=== PATIENT | male | born 1965 | race Caucasian/White ===

== ENCOUNTER 2020-10-14 06:26 | Outpatient (REF) | payer OTHER, SELFPAY ==
[2020-10-14 07:20] LABS: Hematocrit 51.6 % (42-52); Hemoglobin 16.9 g/dl (14.0-18.0); Mean Corpuscular HGB Conc 32.8 g/dl (31.0-36.0); Mean Corpuscular Hemoglobin 29.3 pg (27.0-33.0); Mean Corpuscular Volume 89.6 fL (80-98); Mean Platelet Volume 10.7 fL (9.4-12.4); Platelet Count 247 X10*3/uL (160-400); Red Blood Count 5.76 X10*6/uL (4.60-5.80); Red Cell Distribution Width 14.4 % (11.0-16.0); White Blood Count 12.8 X10*3/uL (4.8-10.8)
[2020-10-14 07:24] LABS: Estimated Average Glucose 131 mg/dL; Hemoglobin A1c % 6.2 %
[2020-10-14 07:46] LABS: Alanine Aminotransferase 22 U/L (0-40); Albumin Level 4.5 g/dL (3.5-5.0); Alkaline Phosphatase 61 U/L (39-117); Anion Gap 16 (12-20); Aspartate Amino Transferase 27 U/L (5-37); Bilirubin Direct 0.2 mg/dL (0.0-0.5); Bilirubin Total 0.6 mg/dL (0.0-1.0); Blood Urea Nitrogen 16 mg/dL (9-16); Calcium 9.3 mg/dL (8.4-10.2); Carbon Dioxide 25 mmol/L (22-29); Chloride 101 mmol/L (96-108); Cholesterol 203 mg/dL; Estimated Glomerular Filt Rate > 60; Glucose Random 120 mg/dL (60-115); HDL Cholesterol 33 mg/dL; Potassium 4.1 mmol/L (3.3-5.1); Sodium 138 mmol/L (135-145); Total Protein 7.4 g/dL (6.5-8.0); Triglycerides 533 mg/dL
[2020-10-14 08:06] LABS: Thyroid Stimulating Hormone 0.81 uIU/mL (0.32-4.0)
[2020-10-14 08:53] LABS: Vitamin B12 461 pg/mL (200-900)
[2020-10-20 12:02] LABS: Vitamin D 25-OH, D2 <4 ng/mL; Vitamin D 25-OH, D3 26 ng/mL; Vitamin D 25-OH, Total 26 ng/mL (30-100)
== END 2020-10-14 06:27 | disposition home or self-care (01) ==
LOC: HO.LAB 06:26
PROVIDERS: PCP Internal Medicine; Visit Provider Internal Medicine
DX: E11.9 Type 2 diabetes mellitus without complications (principal)
CPT/HCPCS: 36415; 80048; 80061; 80076; 82306; 82607; 82746; 83036; 84443; 85027

== ENCOUNTER 2020-12-13 12:26 | Inpatient (IN) | payer OTHER, SELFPAY ==
[2020-12-13] VITALS (17 sets, daily range): BP systolic 102–156; BP diastolic 65–100; PULSE 67–156; RESP 14–20; TEMP 36.4–36.7; O2SAT 93–100; BMI 32.3
--- NOTE | 2020-12-13 | ECG_ITS ---
Test Reason : TACHY Blood Pressure : / mmHG Vent. Rate : 138 BPM Atrial Rate : 136 BPM P-R Int : 000 ms QRS Dur : 084 ms QT Int : 320 ms P-R-T Axes : 000 058 084 degrees QTc Int : 484 ms Atrial fibrillation with rapid ventricular response Nonspecific ST and T wave abnormality Abnormal ECG No previous ECGs available Referred By: William Lee Electronically Signed By:Cam Malcolm
--- NOTE | ~2020-12-13 | XR_ITS ---
EXAMINATION: XR CHEST CLINICAL INFORMATION: Abdominal pain COMPARISON: Left rib x-ray 10/21/2017 TECHNIQUE: Frontal view of the chest was obtained. FINDINGS: Cardiac silhouette is normal in size. Lungs are well aerated. There is no lobar consolidation. No pleural effusion or pneumothorax. No gross osseous abnormality. XR/XR chest 1V IMPRESSION: No acute pulmonary pathology.
--- NOTE | ~2020-12-13 | CT_ITS ---
EXAMINATION: CT ABDOMEN AND PELVIS WITH CONTRAST CLINICAL INFORMATION: Left lower quadrant pain history of diverticulitis COMPARISON: CT abdomen pelvis with runoff 09/10/2017 TECHNIQUE: Multidetector volumetric images were obtained from the superior aspect of the liver through the pubic symphysis following administration 85 mL of Omnipaque 350 intravenous contrast. Sagittal and coronal reformatted images were obtained on the technologist's workstation. Oral contrast: No This CT examination was performed using dose optimization techniques as appropriate, variously including the following: *Automated exposure control *Adjustment of mA and/or kV according to patient size (this includes techniques or standardized protocols for targeted exams where dose is matched to indication/reason for exam; i.e. extremities or head) *Use of iterative reconstruction technique DLP: 746 mGy-cm FINDINGS: LUNG BASES: The visualized lung bases are unremarkable. LIVER, GALLBLADDER, AND BILIARY TREE: Liver is mildly enlarged with a cephalocaudad dimension of just over 19 cm. Attenuation is decreased consistent with hepatic steatosis. Some minimal sparing is present around the gallbladder. No focal liver mass or bile duct dilatation is seen. The gallbladder is unremarkable with no evidence of radiopaque gallstones, gallbladder wall thickening, or obvious pericholecystic inflammatory changes. PANCREAS: Unremarkable. SPLEEN: Unremarkable. ADRENAL GLANDS: Unremarkable. KIDNEYS AND URETERS: The kidneys are normal in size, shape, and attenuation. Bilateral renal cysts are present. No solid renal masses are seen. No hydronephrosis, hydroureter, or calculi seen. No perinephric stranding. BLADDER: Unremarkable. GASTROINTESTINAL TRACT: A small hiatal hernia is present. The small and large bowel are unremarkable. The appendix is unremarkable. ABDOMINAL WALL: There is evidence of previous hernia repair in the anterior abdomen and left lower quadrant. There is a recurrent spigelian-type hernia containing only fat seen on the left (20:54). This was present on the 09/10/2017 study at which time a portion of a tiny loop of small bowel was seen protruding into the defect . A small periumbilical hernia seen containing only fat. LYMPH NODES: No retroperitoneal lymphadenopathy. VASCULAR: Marked calcific atherosclerotic changes present in the infrarenal aorta and visualized iliofemoral vessels. No aneurysm is seen. PELVIC VISCERA: Prostate and seminal vesicles appear normal. OSSEOUS STRUCTURES: Mild degenerative changes present in the lower thoracic spine as well as in the lumbar spine predominantly at L5-S1. No bony destructive lesions seen. CT/CT abdomen pelvis w con IMPRESSION: 1. There are is a small spigelian-type hernia is seen in the left lower quadrant containing only fat. 2. Mild hepatomegaly with fatty infiltration. 3. Benign bilateral renal cysts. 4. Marked calcific atherosclerotic changes.
--- NOTE | ~2020-12-13 | NM_ITS ---
Lexiscan Myocardial perfusion study Indication: Preoperative cardiac evaluation, history of peripheral vascular disease Technique: The patient was brought in for a Lexiscan perfusion study on 12/16/2020 and was injected 0.4 mg of Lexiscan intravenously. Within a minute of this injection 30 mCi of sestamibi was given intravenously. Images were obtained using the SPECT gamma camera interlaced with the gating device. Images were obtained in supine position. Resting perfusion study was performed on 12/15/2020. Patient was administered 30 mCi of sestamibi intravenously at rest. Images were then obtained in supine position. Total DLP 65mGy-cm. Images were processed with the software and compared side to side in short axis, horizontal long axis and vertical long axis views. Findings: Raw acquisition was reviewed. The stress perfusion study showed diminished tracer uptake along the inferior wall. With CT attenuation correction, this is improved significantly suggesting diaphragmatic attenuation artifact. The gated study shows normal LV systolic function with calculated LVEF of 58%. LV cavity is normal in size. The gated study shows normal wall thickening and contraction of segments. Resting study shows diminished tracer uptake along the inferior wall. With CT attenuation correction, this improves suggesting diaphragmatic artifact. Gating at rest reveals normal wall motion with ejection fraction at 66%. The findings are consistent with fixed inferior defect suspected to be from diaphragmatic attenuation artifact. No reversible defects.. NM/NM césar perf SPECT rest & str Impression: 1. Myocardial perfusion imaging study shows no evidence of any ischemia or infarction. Likely normal perfusion. 2. Gated LVEF is 58% during stress and 66% during rest. 3. Transient ischemic dilatation not present. EKG component of the test reported separately.
[2020-12-13 16:17] LABS: MANUAL DIFF FLAG NO
--- NOTE | 2020-12-13 16:31 | ED.ABDPAIN ---
HPI - Abdominal Pain General Chief Complaint: Abdominal Pain Stated Complaint: HERNIA PAIN Time Seen by Provider: 12/13/20 16:30 Source: patient Mode of arrival: ambulatory Limitations: no limitations History of Present Illness HPI narrative: Pleasant 55-year-old male with history of non insulin-dependent diabetes, dental surgery and diverticulitis he had a diverticular per in 2003 subsequently requiring colon resection and colostomy with reversal also having 2 abdominal hernia repairs around 2005 who presents today with complaint of over the past several hours he has had left lower quadrant abdominal pain worsening and is described as sharp and stabbing with intermittent episodes. States there is some nausea secondary to the pain but no vomiting or diarrhea. Onset (ago): hour(s) Pain Consistency: constant Location: LLQ Severity: moderate Quality: stabbing and aching Radiation: LLQ Migration to: no migration Exacerbating factors: nothing Relieving factors: nothing Associated symptoms: denies other symptoms Related Data Home Medications Medication Instructions Recorded Confirmed amitriptyline 100 mg tablet 100 mg PO BEDTIME 06/30/20 10/15/20 buprenorphine HCl 750 mcg buccal 750 mcg BUCCAL Q12H 06/30/20 10/15/20 film pramipexole 0.5 mg tablet 0.5 mg PO BID 06/30/20 10/15/20 alcohol swabs pad TOPICAL BID 10/11/20 10/15/20 aspirin 81 mg tablet,delayed 81 mg PO DAILY 10/11/20 10/15/20 release blood sugar diagnostic #10 ea 10/11/20 10/15/20 Previous Rx's Medication Instructions Recorded cephalexin 250 mg capsule 250 mg PO Q6H #28 cap 06/30/20 hydralazine 10 mg tablet 10 mg PO BID #180 tab 08/10/20 metformin 500 mg tablet 1,000 mg PO BID #360 tab 08/10/20 empagliflozin 25 mg tablet 25 mg PO QAM #90 tab 11/30/20 Allergies Allergy/AdvReac Type Severity Reaction Status Date / Time No Known Allergies Allergy Verified 10/15/20 11:26 [No Known Allergies*] Review of Systems Review of Systems Constitutional: No Weight loss, No Fever, No Chills, No Night Sweats, No Fatigue, No Malaise ENT/Mouth: No Hearing loss, No Ear Pain, No Nasal Congestion, No Sinus Pain, No Hoarseness, No sore throat, No Rhinorrhea, No Swallowing Difficulty Eyes: No Eye Pain, No Swelling, No Redness, No Foreign Body, No Discharge, No Vision Changes Cardiovascular: No Chest Pain, No SOB, No Dyspnea on Exertion, No Orthopnea, No Edema, No Palpitations Respiratory: No Cough, No Sputum, No Wheezing, No Dyspnea Gastrointestinal: + Nausea, No Vomiting, No Diarrhea, No Constipation, + abdominal Pain, No Hematochezia, No Melena Genitourinary: no irregular bleeding, No Dysuria, No Urinary Frequency, No Hematuria, No Urinary Incontinence, No Urgency, No Flank Pain, No Urinary Flow Changes, No Hesitancy Musculoskeletal: No joint pain, No Myalgias, No Joint Swelling Skin: No Skin Lesions, No rash Neuro: No Weakness, No Numbness, No Paresthesias, No Loss of Consciousness, No Dizziness, No Headache Psych: No Social Issues Heme/Lymph: No Bruising, No Bleeding,No Lymphadenopathy Endocrine: No Polyuria, No Polydipsia, No Temperature Intolerance Yes all other systems are reviewed and are negative Physical Exam Vital Signs: Vital Signs: Last Vital Signs Temp 98.1 F 12/13/20 20:00 Pulse 70 12/13/20 22:10 Resp 16 12/13/20 22:10 BP 111/73 12/13/20 22:10 Pulse Ox 94 12/13/20 22:10 Body Mass Index 32.3 Reviewed Const: General: cooperative and healthy appearing; No acute distress or intoxicated appearing Nutritional Appearance: average body habitus Orientation/consciousness: patient oriented x3 HENMT: Head: Yes normal to inspection Ears: hearing grossly normal bilaterally Eyes: General: appearance normal, both eyes and all related structures Visual Berumen: normal visual berumen by confrontation Neck: Neck: Yes normal visual inspection, No positive Brudzinski's sign, No positive Kernig's sign and No tender Thyroid: Thyroid normal Chest: Chest palpation & inspection: normal inspection of the chest Resp: Effort & Inspection: normal respiratory effort Auscultation: clear to auscultation bilaterally Cardio: Jugular venous distension: no JVD Rhythm: regular rhythm Heart sounds: S1 normal heart sound present and S2 normal heart sound present GI: Inspection: Yes normal to inspection Palpation (GI): Tenderness to palpation present (GI) in the LLQ Percussion: Yes normal to percussion Auscultation: normal bowel sounds : General: Yes no CVA tenderness Back/Spine/Pelvis: Back: no CVA tenderness Skin: General skin exam: no rashes or lesions noted Neuro: General: patient oriented x3 Extrem: General: Yes normal to inspection Course Reevaluation(s) Reevaluation #1: Labs done in triage with leukocytosis of 16 at baseline he is around 12 question reactive, abdominal pelvis CT done shows small fat containing hernia left lower quadrant otherwise no acute findings. His pain is disproportionate to findings on the CT this lactic acid was done which was 1.1 which is reassuring less likely ischemic. However he tells me that the pain his head is worse and his had multiple surgeries. Does I discussed case with General surgery Dr. Reardon who reviewed workup with me as well as reviewed the CT and feel can go home with oral injuries and follow-up in the office. Reevaluation #2: Upon re-evaluation patient was found to have elevated heart rate found to be in rapid AFib with RVR no prior history patient was subsequently troponin, D-dimer and TSH within normal limits. Patient was given 10 of diltiazem without much effect subsequently given 20 mg and started on drip he maintained in the low teens after 20 however after short period on Cardizem drip patient over to sinus rhythm repeat EKG was done. Case was discussed with hospitalist for admission. Consultations Consultation #1: General surgery Dr. Reardon Consultation #2: Hospitalist MDM - Abdominal Pain Medical Records Attestation: I reviewed the patient's medical records. Lab Data Result diagrams: 12/13/20 16:06 12/13/20 16:06 Labs: Lab Results 12/13/20 12/13/20 12/13/20 Range/Units 16:06 16:06 19:08 WBC 16.3 H (4.8-10.8) X10*3/uL RBC 6.29 H (4.60-5.80) X10*6/uL Hgb 18.5 H (14.0-18.0) g/dl Hct 56.5 H (42-52) % MCV 89.8 (80-98) fL MCH 29.4 (27.0-33.0) pg MCHC 32.7 (31.0-36.0) g/dl RDW 15.0 (11.0-16.0) % Plt Count 316 D (160-400) X10*3/uL MPV 10.1 (9.4-12.4) fL Immature Gran % (Auto) 0.8 H (0.0-0.4) % Neut % (Auto) 61.1 (45-73) % Lymph % (Auto) 29.3 (20-40) % Posey % (Auto) 6.7 (2-11) % Eos % (Auto) 1.2 (0-4) % Baso % (Auto) 0.9 (0-2) % Lymph # (Auto) 4.8 (1.2-4.9) X10*3/uL Posey # (Auto) 1.1 (0.1-1.2) X10*3/uL Eos # (Auto) 0.2 (0.0-0.4) X10*3/uL Baso # (Auto) 0.1 (0.0-0.2) X10*3/uL Abs Immat Gran (auto) 0.13 H (0.00-0.03) X10*3/uL Absolute Neuts (auto) 10.0 H (2.0-8.3) X10*3/uL Absolute Nucleated RBC 0.000 (0.0-0.012) X10*3/uL Nucleated RBC % (auto) 0.0 (0.0-0.2) /100WBC D-Dimer NG/ML Sodium 140 (135-145) mmol/L Potassium 4.9 (3.3-5.1) mmol/L Chloride 105 (96-108) mmol/L Carbon Dioxide 23 (22-29) mmol/L Anion Gap 17 (12-20) BUN 19 H (9-16) mg/dL Creatinine 0.87 (0.5-1.4) mg/dL Estim Creat Clear Calc 105.5 Estimated GFR > 60 Random Glucose 132 H (60-115) mg/dL Lactic Acid 1.1 (0.5-2.0) mmol/L Calcium 9.7 (8.4-10.2) mg/dL Total Bilirubin 0.5 (0.0-1.0) mg/dL Direct Bilirubin < 0.2 (0.0-0.5) mg/dL AST 24 (5-37) U/L ALT 20 (0-40) U/L Alkaline Phosphatase 70 (39-117) U/L Troponin I High Sens (<3.5-35.0) ng/L Total Protein 7.9 (6.5-8.0) g/dL Albumin 4.6 (3.5-5.0) g/dL Lipase 26 (8-78) U/L TSH 0.56 (0.32-4.0) uIU/mL 12/13/20 12/13/20 Range/Units 20:41 20:41 WBC (4.8-10.8) X10*3/uL RBC (4.60-5.80) X10*6/uL Hgb (14.0-18.0) g/dl Hct (42-52) % MCV (80-98) fL MCH (27.0-33.0) pg MCHC (31.0-36.0) g/dl RDW (11.0-16.0) % Plt Count (160-400) X10*3/uL MPV (9.4-12.4) fL Immature Gran % (Auto) (0.0-0.4) % Neut % (Auto) (45-73) % Lymph % (Auto) (20-40) % Posey % (Auto) (2-11) % Eos % (Auto) (0-4) % Baso % (Auto) (0-2) % Lymph # (Auto) (1.2-4.9) X10*3/uL Posey # (Auto) (0.1-1.2) X10*3/uL Eos # (Auto) (0.0-0.4) X10*3/uL Baso # (Auto) (0.0-0.2) X10*3/uL Abs Immat Gran (auto) (0.00-0.03) X10*3/uL Absolute Neuts (auto) (2.0-8.3) X10*3/uL Absolute Nucleated RBC (0.0-0.012) X10*3/uL Nucleated RBC % (auto) (0.0-0.2) /100WBC D-Dimer < 200 NG/ML Sodium (135-145) mmol/L Potassium (3.3-5.1) mmol/L Chloride (96-108) mmol/L Carbon Dioxide (22-29) mmol/L Anion Gap (12-20) BUN (9-16) mg/dL Creatinine (0.5-1.4) mg/dL Estim Creat Clear Calc Estimated GFR Random Glucose (60-115) mg/dL Lactic Acid (0.5-2.0) mmol/L Calcium (8.4-10.2) mg/dL Total Bilirubin (0.0-1.0) mg/dL Direct Bilirubin (0.0-0.5) mg/dL AST (5-37) U/L ALT (0-40) U/L Alkaline Phosphatase (39-117) U/L Troponin I High Sens 5.3 (<3.5-35.0) ng/L Total Protein (6.5-8.0) g/dL Albumin (3.5-5.0) g/dL Lipase (8-78) U/L TSH (0.32-4.0) uIU/mL Imaging Data Abdominal/pelvis CT with IV contrast: Radiologist's impression: [address] Scan ReportSigned Patient: Huang Jesus#: [id number]: 1965Acct:[id number]/Sex: 55 / MADM Date: 12/13/20Loc: [address] Dr: Ordering Physician: William Lee NP Date of Service: 12/13/20 Procedure(s): CT abdomen pelvis w con Accession Number(s): [id number] cc: William Lee NP~ EXAMINATION: CT ABDOMEN AND PELVIS WITH CONTRAST CLINICAL INFORMATION: Left lower quadrant pain history of diverticulitis COMPARISON: CT abdomen pelvis with runoff 09/10/2017 TECHNIQUE: Multidetector volumetric images were obtained from the superior aspect of the liver through the pubic symphysis following administration 85 mL of Omnipaque 350 intravenous contrast. Sagittal and coronal reformatted images were obtained on the technologist's workstation. Oral contrast: No This CT examination was performed using dose optimization techniques as appropriate, variously including the following: *Automated exposure control *Adjustment of mA and/or kV according to patient size (this includes techniques or standardized protocols for targeted exams where dose is matched to indication/reason for exam; i.e. extremities or head) *Use of iterative reconstruction technique DLP: 746 mGy-cm FINDINGS: LUNG BASES: The visualized lung bases are unremarkable. LIVER, GALLBLADDER, AND BILIARY TREE: Liver is mildly enlarged with a cephalocaudad dimension of just over 19 cm. Attenuation is decreased consistent with hepatic steatosis. Some minimal sparing is present around the gallbladder. No focal liver mass or bile duct dilatation is seen. The gallbladder is unremarkable with no evidence of radiopaque gallstones, gallbladder wall thickening, or obvious pericholecystic inflammatory changes. PANCREAS: Unremarkable. SPLEEN: Unremarkable. ADRENAL GLANDS: Unremarkable. KIDNEYS AND URETERS: The kidneys are normal in size, shape, and attenuation. Bilateral renal cysts are present. No solid renal masses are seen. No hydronephrosis, hydroureter, or calculi seen. No perinephric stranding. BLADDER: Unremarkable. GASTROINTESTINAL TRACT: A small hiatal hernia is present. The small and large bowel are unremarkable. The appendix is unremarkable. ABDOMINAL WALL: There is evidence of previous hernia repair in the anterior abdomen and left lower quadrant. There is a recurrent spigelian-type hernia containing only fat seen on the left (20:54). This was present on the 09/10/2017 study at which time a portion of a tiny loop of small bowel was seen protruding into the defect . A small periumbilical hernia seen containing only fat. LYMPH NODES: No retroperitoneal lymphadenopathy. VASCULAR: Marked calcific atherosclerotic changes present in the infrarenal aorta and visualized iliofemoral vessels. No aneurysm is seen. PELVIC VISCERA: Prostate and seminal vesicles appear normal. OSSEOUS STRUCTURES: Mild degenerative changes present in the lower thoracic spine as well as in the lumbar spine predominantly at L5-S1. No bony destructive lesions seen. CT/CT abdomen pelvis w con IMPRESSION: 1. There are is a small spigelian-type hernia is seen in the left lower quadrant containing only fat. 2. Mild hepatomegaly with fatty infiltration. 3. Benign bilateral renal cysts. 4. Marked calcific atherosclerotic changes. Dictated By:IRENE MUSE MDSigned By:<Electronically signed by IRENE MUSE MD in OV>12/13/20 1746 DD/ 1631TD/TT: Clearing Distribution Clerk: MARSHAL Chest x-ray: Radiologist's impression: [facility] [place], [place] [id number] ReportSigned Patient: Huang Jesus#: [id number]: 1965Acct:[id number]/Sex: 55 / MADM Date: 12/13/20Loc: EDAttending Dr: Ordering Physician: William Lee NP Date of Service: 12/13/20 Procedure(s): XR chest 1V Accession Number(s): [id number] cc: William Lee CAR INSTALLATIONS SUPERVISOR~ EXAMINATION: XR CHEST CLINICAL INFORMATION: Abdominal pain COMPARISON: Left rib x-ray 10/21/2017 TECHNIQUE: Frontal view of the chest was obtained. FINDINGS: Cardiac silhouette is normal in size. Lungs are well aerated. There is no lobar consolidation. No pleural effusion or pneumothorax. No gross osseous abnormality. XR/XR chest 1V IMPRESSION: No acute pulmonary pathology. Dictated By:BROCK BARNETT MDSigned By:<Electronically signed by BROCK BARNETT MD in OV>12/13/202113 DD/ 31TD/TT: Clearing Distribution Clerk: PD ECG Data Interpretation: EKG 1. Atrial fibrillation with RVR Rate 138 QT/QTC 320/for 84 No previous available EKG 2. Vent. Rate : 070 BPM Atrial Rate : 070 BPM P-R Int : 134 ms QRS Dur : 088 ms QT Int : 388 ms P-R-T Axes : 056 045 091 degrees QTc Int : 419 ms Normal sinus rhythm Nonspecific T wave abnormality Abnormal ECG When compared with ECG of 13-DEC-2020 20:28, Sinus rhythm has replaced Atrial fibrillation Vent. rate has decreased BY 68 BPM Nonspecific T wave abnormality now evident in Anterior leads Discharge Plan Discharge Clinical Impression: New onset a-fib, Abdominal pain, acute, left lower quadrant Patient Disposition: Admitted As Inpatient Prescriptions: No Action hydralazine 10 mg tablet 10 mg PO BID Qty: 180 RF: 1 metformin 500 mg tablet 1,000 mg PO BID Qty: 360 RF: 1 empagliflozin [Jardiance] 25 mg tablet 25 mg PO QAM Qty: 90 RF: 1 amitriptyline 100 mg tablet 100 mg PO BEDTIME RF: 0 pramipexole 0.5 mg tablet 0.5 mg PO BID RF: 0 Belbuca 750 mcg film 750 mcg buccal Q12H RF: 0 cephalexin [Keflex] 250 mg capsule 250 mg PO Q6H Qty: 28 RF: 0 (DME) FreeStyle Lite Strips Strip See Rx Instructions strip Not Applicable BID Qty: 10 RF: 0 alcohol swabs Pads, Medicated topical BID RF: 0 aspirin [Adult Low Dose Aspirin] 81 mg tablet,delayed release (DR/EC) 81 mg PO DAILY RF: 0 PMFSH Past Medical History Medical History Type 2 diabetes mellitus without complications Vitamin D deficiency Surgical History History of dental surgery History of hernia repair Family History Family History Father No problems noted. Mother No problems noted. Brother No problems noted. Brother No problems noted. Brother No problems noted. Sister No problems noted. Social History Social History (Updated 10/11/20 @ 08:44 by Benigno Hsieh) Alcohol intake: never Smoking Status: Current every day smoker Tobacco Type: Cigarette Packs Per Day: 1 Use of substances other than those prescribed or required for medical reasons: No Substance Use Type: Marijuana Substance Use Frequency: Daily Advance Directives: No Advance Directives Information Provided: Yes
[2020-12-13 16:39] LABS: Basophils Absolute Auto 0.1 X10*3/uL (0.0-0.2); Basophils Percent Auto 0.9 % (0-2); Eosinophils Absolute Auto 0.2 X10*3/uL (0.0-0.4); Eosinophils Percent Auto 1.2 % (0-4); Hemoglobin 18.5 g/dl (14.0-18.0); Imm Gran Abs Auto 0.13 X10*3/uL (0.00-0.03); Imm Gran Pct Auto 0.8 % (0.0-0.4); Lymphocytes Absolute Auto 4.8 X10*3/uL (1.2-4.9); Lymphocytes Percent Auto 29.3 % (20-40); Mean Corpuscular HGB Conc 32.7 g/dl (31.0-36.0); Mean Corpuscular Hemoglobin 29.4 pg (27.0-33.0); Mean Corpuscular Volume 89.8 fL (80-98); Mean Platelet Volume 10.1 fL (9.4-12.4); Monocytes Absolute Auto 1.1 X10*3/uL (0.1-1.2); Monocytes Percent Auto 6.7 % (2-11); Neutrophils Percent Auto 61.1 % (45-73); Platelet Count 316 X10*3/uL (160-400); Red Blood Count 6.29 X10*6/uL (4.60-5.80); White Blood Count 16.3 X10*3/uL (4.8-10.8)
[2020-12-13 16:45] LABS: Hematocrit 56.5 % (42-52)
[2020-12-13 16:55] LABS: Alanine Aminotransferase 20 U/L (0-40); Albumin Level 4.6 g/dL (3.5-5.0); Alkaline Phosphatase 70 U/L (39-117); Anion Gap 17 (12-20); Aspartate Amino Transferase 24 U/L (5-37); Bilirubin Direct < 0.2 mg/dL (0.0-0.5); Bilirubin Total 0.5 mg/dL (0.0-1.0); Blood Urea Nitrogen 19 mg/dL (9-16); Calcium 9.7 mg/dL (8.4-10.2); Carbon Dioxide 23 mmol/L (22-29); Chloride 105 mmol/L (96-108); Creatinine Clr Calc Pharmacy 105.5; Estimated Glomerular Filt Rate > 60; Glucose Random 132 mg/dL (60-115); Lipase 26 U/L (8-78); Potassium 4.9 mmol/L (3.3-5.1); Sodium 140 mmol/L (135-145); Total Protein 7.9 g/dL (6.5-8.0)
[2020-12-13] MEDS: Morphine Sulfate 4 MG/ML CARTRIDGE IVPUSH ×2 (17:02→20:23)
[2020-12-13] MEDS: 0.9 % Sodium Chloride 1,000 ML 999 ML IV (17:02)
[2020-12-13] MEDS: ondansetron HCL 4 MG/2 ML VIAL IVPUSH (17:02)
[2020-12-13] MEDS: iohexoL 350 MG/ML 100 ML INFUS..BTL IV (17:20)
[2020-12-13 19:35] LABS: Lactic Acid 1.1 mmol/L (0.5-2.0)
--- NOTE | 2020-12-13 20:30 | PC.NURSE ---
pt hr elevated 150 provider brought to bedside, ekg done, labs being drawn. pt states he had pain in the chest with diaphoretic prior to coming to the ed. pt was placed on the monitor.
--- NOTE | 2020-12-13 20:32 | ECG_ITS ---
Test Reason : Atrial fibrillation on bedside monitor Blood Pressure : / mmHG Vent. Rate : 070 BPM Atrial Rate : 070 BPM P-R Int : 134 ms QRS Dur : 088 ms QT Int : 388 ms P-R-T Axes : 056 045 091 degrees QTc Int : 419 ms Normal sinus rhythm Nonspecific T wave abnormality Abnormal ECG When compared with ECG of 13-DEC-2020 20:28, Sinus rhythm has replaced Atrial fibrillation Vent. rate has decreased BY 68 BPM Nonspecific T wave abnormality now evident in Anterior leads Referred By: Paris Moses Electronically Signed By:JOHN ROLAND
[2020-12-13] MEDS: dilTIAZem HCL 50 MG/10 ML VIAL 10 MG IVPUSH (20:37)
--- NOTE | 2020-12-13 20:48 | PC.NURSE ---
correction pt states he did not have chest pain earlier pt states he felt his heart racing and became diaphoretic at home. labs pending cardizem given no effect. hr 143. pt anxiouse teaching on the need to relax. xray taken, 2nd iv line in right ac.
--- NOTE | 2020-12-13 20:51 | PC.NURSE ---
verbal order from Rosa to give diltiazem 20 mg iv now.
[2020-12-13 21:03] LABS: D Dimer < 200 NG/ML
[2020-12-13] MEDS: dilTIAZem HCL 125 MG in 0.9 % Sodium Chloride 100 ML 10 MG IVCONT (21:13)
[2020-12-13 21:16] LABS: Troponin-I High Sensitivity 5.3 ng/L (<3.5-35.0)
[2020-12-13] MEDS: dilTIAZem HCL 50 MG/10 ML VIAL 20 MG IVPUSH (21:16)
[2020-12-13] MEDS: HYDROmorphone HCl 1 MG/ML SYRINGE IVPUSH (21:17)
[2020-12-13 21:44] LABS: Thyroid Stimulating Hormone 0.56 uIU/mL (0.32-4.0)
--- NOTE | 2020-12-13 22:56 | P.HPHOSP_ITS ---
History of Present Illness Date of Service: 12/13/20 Chief Complaint: Abdominal pain 55-year-old male with a past medical history of hypertension, diabetes, opiate dependence on Suboxone, history of diverticulitis status post colectomy, history of multiple abdominal wall hernia/arteries, history of chronic abdominal pain presented to the hospital with a chief complaint of acute onset of left lower quadrant abdominal pain. Denies any fever chills cough. Denies any chest pain palpitations lightheadedness or dizziness. Mention that the abdominal pain is sharp in nature located on the left lower quadrant near his colostomy scar; denies any associated nausea or vomiting. Mentioned he had loose stools for the past couple days. Denies fever chills cough. Denies any recent travel or sick contacts. Review of all other systems is negative except mentioned above ER course: For ER team patient noted to have left lower quadrant tenderness near the colostomy scar, no guarding no rigidity; CT scan showed small spigelian type hernia seen in the left lower quadrant containing fat; discussed with Dr. moore from general surgery who reviewed the CT scan and mentioned no acute surgical intervention needed.; followed by patient wanted to AFib with RVR-given IV diltiazem boluses with no improvement subsequently patient was placed briefly on diltiazem drip and finally patient continued to sinus rhythm. Admitted to the hospital for further management. [facility] Medical History (Updated 12/24/20 @ 00:02 by Harini Juarez) Atrial fibrillation Atrial fibrillation with rapid ventricular response Incisional hernia Type 2 diabetes mellitus without complications Vitamin D deficiency Family History Father No problems noted. Mother No problems noted. Brother No problems noted. Brother No problems noted. Brother No problems noted. Sister No problems noted. Surgical History History of colostomy History of colostomy reversal History of dental surgery History of hernia repair Social History Household Members: Significant Other Housing: Apartment Alcohol intake: unknown Smoking Status: Current every day smoker Tobacco Type: Cigarette Packs Per Day: 1 Cigarettes Per Day: 20.0 Years Smoked: 45 Second Hand Smoke Exposure: Yes Substance Use Type: Marijuana service: No Current occupational status: disabled Meds Allergies Allergy/AdvReac Type Severity Reaction Status Date / Time No Known Allergies Allergy Verified 10/15/20 11:26 [No Known Allergies*] Active Medications: Current Medications Generic Name Dose Route Start Last Admin Trade Name Freq PRN Reason Stop Dose Admin Acetaminophen 650 mg 12/13/20 22:49 Acetaminophen 325 Mg Tablet PO Q6H PRN Pain, Mild (Pain Scale 1-3) Diltiazem HCl 125 mg/ Sodium 125 mls @ 0 mls/hr 12/13/20 21:00 12/13/20 21:13 Chloride IVCONT 10 mg/hr .Q0M JEAN-PIERRE 10 mls/hr Administration Protocol Per Protocol Sodium Chloride 1,000 mls @ 100 mls/hr 12/13/20 23:00 Ns IVCONT .Q10H JEAN-PIERRE Insulin Human Lispro 0 unit 12/14/20 07:30 Insulin Lispro 100 Unit/Ml 3 Ml Vial SUBCUT QIDACHS [facility] Protocol Metoprolol Tartrate 5 mg 12/13/20 22:49 Metoprolol Tartrate 5 Mg/5 Ml Vial IVPUSH Q6H PRN HR>120 Sodium Chloride 3 ml 12/14/20 00:00 0.9 % Sodium Chloride Flush 3 Ml Syringe IVFLUSH QSHIFT [facility] Home Medications Medication Instructions Recorded Confirmed Last Taken Type pramipexole 0.5 mg tablet 0.5 mg PO BID 06/30/20 12/18/20 Unknown History aspirin 81 mg tablet,delayed 81 mg PO DAILY 10/11/20 12/18/20 12/18/20 History release blood sugar diagnostic #10 ea 10/11/20 10/15/20 Unknown History cholecalciferol (vitamin D3) 1,000 unit PO DAILY 12/14/20 12/18/20 12/18/20 History [Vitamin D3] Physical Exam Vital Signs and Narrative: Vital Signs: Last Vital Signs Temp 98.1 F 12/13/20 20:00 Pulse 70 12/13/20 22:10 Resp 16 12/13/20 22:10 BP 111/73 12/13/20 22:10 Pulse Ox 94 12/13/20 22:10 Body Mass Index 32.3 Gen: Appears be in no acute distress HEENT: NCAT, Moist mucosa. Pulmonary: Vesicular breath sounds, fair air entry CVS: Normal S1-S2 Abdomen: BS+, Soft, abdominal wounds was caught noticed. And the colostomy scar on the left lower quadrant. Tender in the left lower quadrant. No guarding no rigidity. Extremities: Warm well perfused Neuro: Alert and awake. Results Labs CBC and Chem 7: 12/16/20 07:51 12/16/20 07:51 Labs: Laboratory Results - last 24 hr 12/13/20 12/13/20 12/13/20 16:06 16:06 19:08 MCV 89.8 MCH 29.4 MCHC 32.7 RDW 15.0 Plt Count 316 D MPV 10.1 Immature Gran % (Auto) 0.8 H Neut % (Auto) 61.1 Lymph % (Auto) 29.3 Victoria % (Auto) 6.7 Eos % (Auto) 1.2 Baso % (Auto) 0.9 Lymph # (Auto) 4.8 Victoria # (Auto) 1.1 Eos # (Auto) 0.2 Baso # (Auto) 0.1 Abs Immat Gran (auto) 0.13 H Absolute Neuts (auto) 10.0 H Absolute Nucleated RBC 0.000 Nucleated RBC % (auto) 0.0 D-Dimer Anion Gap 17 Estim Creat Clear Calc 105.5 Estimated GFR > 60 Random Glucose 132 H Lactic Acid 1.1 Calcium 9.7 Total Bilirubin 0.5 Direct Bilirubin < 0.2 AST 24 ALT 20 Alkaline Phosphatase 70 Troponin I High Sens Total Protein 7.9 Albumin 4.6 Lipase 26 TSH 0.56 12/13/20 12/13/20 20:41 20:41 MCV MCH MCHC RDW Plt Count MPV Immature Gran % (Auto) Neut % (Auto) Lymph % (Auto) Victoria % (Auto) Eos % (Auto) Baso % (Auto) Lymph # (Auto) Victoria # (Auto) Eos # (Auto) Baso # (Auto) Abs Immat Gran (auto) Absolute Neuts (auto) Absolute Nucleated RBC Nucleated RBC % (auto) D-Dimer < 200 Anion Gap Estim Creat Clear Calc Estimated GFR Random Glucose Lactic Acid Calcium Total Bilirubin Direct Bilirubin AST ALT Alkaline Phosphatase Troponin I High Sens 5.3 Total Protein Albumin Lipase TSH Imaging Radiologist's Impressions: Impressions Abdomen/Pelvis CT 12/13/20 16:31 IMPRESSION: 1. There are is a small spigelian-type hernia is seen in the left lower quadrant containing only fat. 2. Mild hepatomegaly with fatty infiltration. 3. Benign bilateral renal cysts. 4. Marked calcific atherosclerotic changes. Chest X-Ray 12/13/20 20:32 IMPRESSION: No acute pulmonary pathology. Assessment and Plan (1) New onset a-fib: Status: Acute 55-year-old male with a past medical history of hypertension, diabetes, history of diverticulitis status post colectomy, subsequent multiple abdominal wall hernia/surgery, chronic abdominal wall pain presented to the hospital chief complaint of left lower quadrant abdominal pain. Left lower quadrant abdominal pain: CT scan showed small spigelian type hernia. Reviewed by general surgery who mention no acute surgical intervention. Pain control. NPO for now Gentle IV fluids New onset AFib: Currently converted back to sinus. Metoprolol p.r.n.. Cardiology consult. Echocardiogram. Will defer to the Cardiology in regards to anticoagulation. Diabetes: Insulin sliding scale For all other chronic conditions, home medications will be continued DVT prophylaxis: SCD boots Code status: Full code
[2020-12-13] MEDS: 0.9 % Sodium Chloride 1,000 ML 100 ML IVCONT (23:59)
[2020-12-14] VITALS (12 sets, daily range): BP systolic 112–143; BP diastolic 66–87; PULSE 66–80; RESP 15–18; TEMP 36.4–36.8; O2SAT 93–98
--- NOTE | 2020-12-14 | ECG_ITS ---
Test Reason : ABDOMINAL PAIN Blood Pressure : / mmHG Vent. Rate : 075 BPM Atrial Rate : 075 BPM P-R Int : 136 ms QRS Dur : 090 ms QT Int : 406 ms P-R-T Axes : 070 045 082 degrees QTc Int : 453 ms Normal sinus rhythm Normal ECG When compared with ECG of 13-DEC-2020 21:25, Nonspecific ST and T wave abnormality improved Referred By: Paris Moses Electronically Signed By:JOHN ROLAND
[2020-12-14 00:30] LABS: COVID-19 Test Negative (Negative); IDNOW Serial# 9DD0AD1C
--- NOTE | 2020-12-14 06:07 | PC.NURSE ---
pt woke up in 10/10 rlq abd pain, hospitalist called for medication orders.
[2020-12-14 07:01] LABS: MANUAL DIFF FLAG NO
[2020-12-14 07:04] LABS: Basophils Absolute Auto 0.1 X10*3/uL (0.0-0.2); Basophils Percent Auto 0.8 % (0-2); Eosinophils Absolute Auto 0.1 X10*3/uL (0.0-0.4); Eosinophils Percent Auto 1.2 % (0-4); Hematocrit 49.8 % (42-52); Hemoglobin 16.5 g/dl (14.0-18.0); Imm Gran Abs Auto 0.08 X10*3/uL (0.00-0.03); Imm Gran Pct Auto 0.7 % (0.0-0.4); Lymphocytes Absolute Auto 3.1 X10*3/uL (1.2-4.9); Lymphocytes Percent Auto 27.1 % (20-40); Mean Corpuscular HGB Conc 33.1 g/dl (31.0-36.0); Mean Corpuscular Hemoglobin 29.8 pg (27.0-33.0); Mean Corpuscular Volume 90.1 fL (80-98); Mean Platelet Volume 10.1 fL (9.4-12.4); Monocytes Absolute Auto 0.7 X10*3/uL (0.1-1.2); Monocytes Percent Auto 6.3 % (2-11); Neutrophils Absolute Auto 7.2 X10*3/uL (2.0-8.3); Neutrophils Percent Auto 63.9 % (45-73); Platelet Count 218 X10*3/uL (160-400); Red Blood Count 5.53 X10*6/uL (4.60-5.80); Red Cell Distribution Width 14.7 % (11.0-16.0); White Blood Count 11.3 X10*3/uL (4.8-10.8)
[2020-12-14 07:31] LABS: Anion Gap 12 (12-20); Blood Urea Nitrogen 19 mg/dL (9-16); Calcium 8.7 mg/dL (8.4-10.2); Carbon Dioxide 21 mmol/L (22-29); Chloride 112 mmol/L (96-108); Creatinine Clr Calc Pharmacy 114.8; Estimated Glomerular Filt Rate > 60; Glucose Random 110 mg/dL (60-115); Potassium 4.2 mmol/L (3.3-5.1); Sodium 141 mmol/L (135-145)
[2020-12-14 07:52] LABS: Thyroid Stimulating Hormone 0.59 uIU/mL (0.32-4.0)
[2020-12-14 08:39] LABS: Glucose, Whole Blood 105 mg/dL (60-115)
--- NOTE | 2020-12-14 08:40 | PC.NURSE ---
dr spain at bedside
--- NOTE | 2020-12-14 09:09 | P.CONGS_ITS ---
History of Present Illness Consult details Consult date: 12/14/20 Narrative: 55-year-old male referred because of left lower quadrant pain. He has a known history of diverticular disease. He apparently had sigmoid resection with a colostomy in 2003. He says he the colostomy reversed in 2004. All these were done in [facility]. He says he had what sounded like a large incisional hernia on his midline requiring surgery for placement of a large mesh. He said he needed to have incisional hernia repair twice in 2005. He has had chronic pain and some abdominal wall since then. He does describe periods were in the pain would be worse. He said he was diagnosed to have a hernia again on the left side. He says he had an episode of severe pain yesterday during the day which persisted so he came to the emergency room last night. He says the pain is on the old colostomy site. He does state that he had only has chronic pain on this area but episode yesterday was more severe than usual. He describes some nausea because of the pain but no actual vomiting. He went into AFib the ER and was therefore admitted for this. He currently says he still has pain on the old colostomy site. He has been passing flatus and has had good BMs. Review of Systems Constitutional: Constitutional: Denies chills and Denies fever(s) Cardiovascular: Cardiovascular: Denies chest pain, Denies dyspnea and Denies dyspnea on exertion Respiratory: Respiratory: Denies cough, Denies dyspnea and Denies dyspnea on exertion Gastrointestinal: Gastrointestinal: Denies hematochezia and Denies change in bowel habits Genitourinary: Genitourinary: Denies hematuria and Denies difficulty urinating Musculoskeletal: Musculoskeletal: Denies back pain and Denies limited range of motion Neurologic: Denies focal weakness and Denies convulsions Psychiatric: Psychiatric: Denies depression and Denies mood swings PMF Past Medical History Medical History (Updated 12/14/20 @ 11:37 by Pascual Garcia MD) Incisional hernia Type 2 diabetes mellitus without complications Vitamin D deficiency Family History Family History Father No problems noted. Mother No problems noted. Brother No problems noted. Brother No problems noted. Brother No problems noted. Sister No problems noted. Surgical History Surgical History History of dental surgery History of hernia repair Social History Social History Household Members: Significant Other Housing: Apartment Alcohol intake: never Smoking Status: Current every day smoker Tobacco Type: Cigarette Packs Per Day: 1 Substance Use Type: Marijuana service: No Current occupational status: disabled Meds Allergies Allergy/AdvReac Type Severity Reaction Status Date / Time No Known Allergies Allergy Verified 10/15/20 11:26 [No Known Allergies*] Active Medications: Current Medications Generic Name Dose Route Start Last Admin Trade Name Freq PRN Reason Stop Dose Admin Acetaminophen 650 mg 12/13/20 22:49 Acetaminophen 325 Mg Tablet PO Q6H PRN Pain, Mild (Pain Scale 1-3) Hydralazine HCl 10 mg 12/14/20 09:00 Hydralazine Hcl 10 Mg Tablet PO BID [facility] Protocol Hydromorphone HCl 0.5 mg 12/14/20 06:07 Hydromorphone Hcl 0.5 Mg/0.5 Ml Syringe IVPUSH Q6H PRN Breakthrough Pain Diltiazem HCl 125 mg/ Sodium 125 mls @ 0 mls/hr 12/13/20 21:00 12/13/20 21:13 Chloride IVCONT 10 mg/hr .Q0M JEAN-PIERRE 10 mls/hr Administration Protocol Per Protocol Sodium Chloride 1,000 mls @ 100 mls/hr 12/13/20 23:00 12/13/20 23:59 Ns IVCONT 100 mls/hr .Q10H JEAN-PIERRE Administration Insulin Human Lispro 0 unit 12/14/20 07:30 Insulin Lispro 100 Unit/Ml 3 Ml Vial SUBCUT QIDACHS [facility] Protocol Metoprolol Tartrate 5 mg 12/13/20 22:49 Metoprolol Tartrate 5 Mg/5 Ml Vial IVPUSH Q6H PRN HR>120 Pramipexole Dihydrochloride 0.5 mg 12/14/20 09:00 Pramipexole Di-Hcl 0.25 Mg Tablet PO BID JEAN-PIERRE Sodium Chloride 3 ml 12/14/20 00:00 12/14/20 00:34 0.9 % Sodium Chloride Flush 3 Ml Syringe IVFLUSH Not Given QSHIFT [facility] Home Medications Medication Instructions Recorded Confirmed Last Taken Type buprenorphine HCl 750 mcg buccal 750 mcg BUCCAL Q12H 06/30/20 12/14/20 Unknown History film pramipexole 0.5 mg tablet 0.5 mg PO BID 06/30/20 12/14/20 Unknown History aspirin 81 mg tablet,delayed 81 mg PO DAILY 10/11/20 12/14/20 Unknown History release blood sugar diagnostic #10 ea 10/11/20 10/15/20 Unknown History cholecalciferol (vitamin D3) mcg PO DAILY 12/14/20 Unknown History [Vitamin D3] Physical Exam Vital Signs: Vital Signs: Last Vital Signs Temp 97.9 F 12/14/20 07:48 Pulse 70 12/14/20 07:48 Resp 15 12/14/20 07:48 BP 132/87 12/14/20 07:48 Pulse Ox 94 12/14/20 07:48 Body Mass Index 32.3 Const: Other: Complaints of pain General: no acute distress Orientation/consciousness: patient oriented x3 Neck: Neck: Yes no lymphadenopathy Resp: Auscultation: clear to auscultation bilaterally Cardio: Rhythm: regular rhythm GI: Other: Unable to palpate the hernia but has some tenderness on the area of the old colostomy on the left side; exam otherwise benign Palpation (GI): Soft to palpation, Tenderness to palpation present (GI), no guarding and not rigid Neuro: General: patient oriented x3 Results Labs Result diagrams: 12/14/20 06:39 12/14/20 06:39 Labs: Abnormal lab results 12/13/20 12/13/20 12/14/20 Range/Units 16:06 16:06 06:39 WBC 16.3 H 11.3 H (4.8-10.8) X10*3/uL RBC 6.29 H (4.60-5.80) X10*6/uL Hgb 18.5 H (14.0-18.0) g/dl Hct 56.5 H (42-52) % Immature Gran % (Auto) 0.8 H 0.7 H (0.0-0.4) % Abs Immat Gran (auto) 0.13 H 0.08 H (0.00-0.03) X10*3/uL Absolute Neuts (auto) 10.0 H (2.0-8.3) X10*3/uL Chloride (96-108) mmol/L Carbon Dioxide (22-29) mmol/L BUN 19 H (9-16) mg/dL Random Glucose 132 H (60-115) mg/dL 12/14/20 Range/Units 06:39 WBC (4.8-10.8) X10*3/uL RBC (4.60-5.80) X10*6/uL Hgb (14.0-18.0) g/dl Hct (42-52) % Immature Gran % (Auto) (0.0-0.4) % Abs Immat Gran (auto) (0.00-0.03) X10*3/uL Absolute Neuts (auto) (2.0-8.3) X10*3/uL Chloride 112 H (96-108) mmol/L Carbon Dioxide 21 L (22-29) mmol/L BUN 19 H (9-16) mg/dL Random Glucose (60-115) mg/dL Short CBC 12/13/20 12/14/20 Range/Units 16:06 06:39 WBC 16.3 H 11.3 H (4.8-10.8) X10*3/uL Hgb 18.5 H 16.5 (14.0-18.0) g/dl Hct 56.5 H 49.8 (42-52) % Plt Count 316 D 218 D (160-400) X10*3/uL BMP 12/13/20 12/14/20 16:06 06:39 Sodium 140 141 Potassium 4.9 4.2 Chloride 105 112 H Carbon Dioxide 23 21 L BUN 19 H 19 H Creatinine 0.87 0.80 Calcium 9.7 8.7 D Liver Function 12/13/20 Range/Units 16:06 Total Bilirubin 0.5 (0.0-1.0) mg/dL Direct Bilirubin < 0.2 (0.0-0.5) mg/dL AST 24 (5-37) U/L ALT 20 (0-40) U/L Alkaline Phosphatase 70 (39-117) U/L Albumin 4.6 (3.5-5.0) g/dL All other labs normal. Imaging Abdomen CT scan report/results: report reviewed and image reviewed CT scan - pelvis: report reviewed and image reviewed Assessment and Plan (1) Incisional hernia: Status: Acute His CAT scan does show a small fat containing incisional hernia on the area of the old colostomy. There is no bowel loops involved. I had reviewed this extensively with the radiologist Dr. Dudley. There does not some appear to be any other intra-abdominal pathology. There is no inflammatory changes within the abdomen. There is no evidence of any obstruction. I am uncertain as to why he does complain of significant pain although he states that he has had this hernia for several years. He does admit that he has chronic pain on the area. I will follow along closely. His white count is lower this morning. His exam is otherwise benign. He is being managed for atrial fibrillation and is admitted to the hospital under the hospitalist service. He can have pain medications in the meantime.
[2020-12-14] MEDS: hydrALAZINE HCl 10 MG TABLET PO ×2 (09:29→21:37)
[2020-12-14] MEDS: HYDROmorphone HCl 0.5 MG/0.5 ML SYRINGE IVPUSH ×2 (09:29→18:02)
--- NOTE | 2020-12-14 09:30 | PC.NURSE ---
PT ALERT AND ORIENTED, SKIN PWD, RESPIRATIONS EVEN AND UNLABORED. PT REPORTS LEFT LOWER ABD PAIN AT 10/10, DENIES NAUSEA, A-FIB ON THE MONITOR AT 75. PT AWARE OF PLAN TO BE ADMIT TO THE HOSPITAL AND AWATING BED ASSIGNMENT AT THIS TIME
[2020-12-14] MEDS: 0.9 % Sodium Chloride 1,000 ML 100 ML IVCONT ×2 (09:32→10:21)
[2020-12-14] MEDS: 0.9 % Sodium Chloride Flush 3 ML SYRINGE IVFLUSH ×2 (09:32→17:36)
[2020-12-14] MEDS: Pramipexole Di-HCL 0.25 MG TABLET 0.5 MG PO ×2 (10:18→18:32)
--- NOTE | 2020-12-14 11:09 | PM.CNCAR ---
History of Present Illness History of Present Illness Date of Service: 12/14/20 Consult reason: atrial fibrillation Chief complaint: Atrial fibrillation Narrative: This is a cardiology consultation regarding atrial fibrillation. Patient has had left lower quadrant abdominal pain which actually brought to the hospital. In this setting, he had palpitations and at that time, he was having atrial fibrillation with rapid rate. It seems that he was given IV Cardizem boluses and then briefly placed on diltiazem drip and then he converted to sinus rhythm. Subsequently, admitted. He states that he has had occasional palpitations years ago but nothing like this. Otherwise no known cardiac problems. No history of any coronary disease or myocardial infarction or cardiomyopathy or in fact anything else. Review of Systems Review of Systems: Yes all other systems are reviewed and are negative Cardiovascular: Cardiovascular: Reports as per HPI, Reports no additional cardiovascular complaints, Denies acrocyanosis, Denies cool extremities, Denies painful fingertips, Denies chest pain, Denies chest pain at rest, Denies diaphoresis, Denies syncope, Denies irregular heart rhythm, Denies claudication, Denies leg edema, Denies lightheadedness, Reports palpitations and Denies dyspnea Respiratory: Respiratory: Denies dyspnea Neurologic: Denies syncope Endocrine: Endocrine: Reports palpitations PMFSH Past Medical History Medical History (Updated 12/14/20 @ 11:37 by Pascual Garcia MD) Incisional hernia Type 2 diabetes mellitus without complications Vitamin D deficiency Family History Family History Father No problems noted. Mother No problems noted. Brother No problems noted. Brother No problems noted. Brother No problems noted. Sister No problems noted. Surgical History Surgical History History of dental surgery History of hernia repair Social History Social History Alcohol intake: never Smoking Status: Current every day smoker Tobacco Type: Cigarette Packs Per Day: 1 Use of substances other than those prescribed or required for medical reasons: No Substance Use Type: Marijuana Substance Use Frequency: Daily Advance Directives: No Advance Directives Information Provided: Yes service: No Current occupational status: disabled Meds Allergies Allergy/AdvReac Type Severity Reaction Status Date / Time No Known Allergies Allergy Verified 10/15/20 11:26 [No Known Allergies*] Active Medications: Current Medications Generic Name Dose Route Start Last Admin Trade Name Freq PRN Reason Stop Dose Admin Acetaminophen 650 mg 12/13/20 22:49 Acetaminophen 325 Mg Tablet PO Q6H PRN Pain, Mild (Pain Scale 1-3) Hydralazine HCl 10 mg 12/14/20 09:00 12/14/20 09:29 Hydralazine Hcl 10 Mg Tablet PO 10 mg BID JEAN-PIERRE Administration Protocol Hydromorphone HCl 0.5 mg 12/14/20 06:07 12/14/20 09:29 Hydromorphone Hcl 0.5 Mg/0.5 Ml Syringe IVPUSH 0.5 mg Q6H PRN Administration Breakthrough Pain Diltiazem HCl 125 mg/ Sodium 125 mls @ 0 mls/hr 12/13/20 21:00 12/13/20 21:13 Chloride IVCONT 10 mg/hr .Q0M JEAN-PIERRE 10 mls/hr Administration Protocol Per Protocol Sodium Chloride 1,000 mls @ 100 mls/hr 12/13/20 23:00 12/14/20 10:21 Ns IVCONT 100 mls/hr .Q10H JEAN-PIERRE Administration Insulin Human Lispro 0 unit 12/14/20 07:30 12/14/20 09:27 Insulin Lispro 100 Unit/Ml 3 Ml Vial SUBCUT Not Given QIDACHS [facility] Protocol Metoprolol Tartrate 5 mg 12/13/20 22:49 Metoprolol Tartrate 5 Mg/5 Ml Vial IVPUSH Q6H PRN HR>120 Pramipexole Dihydrochloride 0.5 mg 12/14/20 09:00 12/14/20 10:18 Pramipexole Di-Hcl 0.25 Mg Tablet PO 0.5 mg BID JEAN-PIERRE Administration Sodium Chloride 3 ml 12/14/20 00:00 12/14/20 09:32 0.9 % Sodium Chloride Flush 3 Ml Syringe IVFLUSH 3 ml QSHIFT JEAN-PIERRE Administration Home Medications Medication Instructions Recorded Confirmed Last Taken Type amitriptyline 100 mg tablet 100 mg PO BEDTIME 06/30/20 10/15/20 Unknown History buprenorphine HCl 750 mcg buccal 750 mcg BUCCAL Q12H 06/30/20 12/14/20 Unknown History film pramipexole 0.5 mg tablet 0.5 mg PO BID 06/30/20 12/14/20 Unknown History aspirin 81 mg tablet,delayed 81 mg PO DAILY 10/11/20 10/15/20 Unknown History release blood sugar diagnostic #10 ea 10/11/20 10/15/20 Unknown History Physical Exam Vital Signs: Vital Signs: Last Vital Signs Temp 97.9 F 12/14/20 07:48 Pulse 75 12/14/20 09:29 Resp 15 12/14/20 07:48 BP 127/81 12/14/20 09:29 Pulse Ox 94 12/14/20 07:48 Body Mass Index 32.3 Const: General: cooperative, comfortable and no acute distress Orientation/consciousness: patient oriented x3 HENMT: Other: Unremarkable Neck: Neck: Yes normal visual inspection Chest: Chest palpation & inspection: normal inspection of the chest Resp: Auscultation: clear to auscultation bilaterally, no crackles and no wheezes Cardio: Jugular venous distension: no JVD Palpation: normal PMI Heart sounds: S1 normal heart sound present, S2 normal heart sound present, no gallops, no murmurs and no rubs GI: Palpation (GI): Soft to palpation Back/Spine/Pelvis: Other: unremarkable Skin: General skin exam: no rashes or lesions noted Neuro: General: patient oriented x3 Extrem: General: Yes no clubbing, cyanosis or edema Psych: Mental Status: mental status grossly normal Results Labs and Meds Result diagrams: 12/14/20 06:39 12/14/20 06:39 Lab results: Laboratory Results - last 24 hr 12/13/20 12/13/20 12/13/20 16:06 16:06 19:08 WBC 16.3 H RBC 6.29 H Hgb 18.5 H Hct 56.5 H MCV 89.8 MCH 29.4 MCHC 32.7 RDW 15.0 Plt Count 316 D MPV 10.1 Immature Gran % (Auto) 0.8 H Neut % (Auto) 61.1 Lymph % (Auto) 29.3 Ransom % (Auto) 6.7 Eos % (Auto) 1.2 Baso % (Auto) 0.9 Lymph # (Auto) 4.8 Ransom # (Auto) 1.1 Eos # (Auto) 0.2 Baso # (Auto) 0.1 Abs Immat Gran (auto) 0.13 H Absolute Neuts (auto) 10.0 H Absolute Nucleated RBC 0.000 Nucleated RBC % (auto) 0.0 D-Dimer Sodium 140 Potassium 4.9 Chloride 105 Carbon Dioxide 23 Anion Gap 17 BUN 19 H Creatinine 0.87 Estim Creat Clear Calc 105.5 Estimated GFR > 60 POC Glucose Random Glucose 132 H Lactic Acid 1.1 Calcium 9.7 Total Bilirubin 0.5 Direct Bilirubin < 0.2 AST 24 ALT 20 Alkaline Phosphatase 70 Troponin I High Sens Total Protein 7.9 Albumin 4.6 Lipase 26 TSH 0.56 COVID-19 ([facility]) COVID-19 Clin Com 12/13/20 12/13/20 12/14/20 20:41 20:41 00:09 WBC RBC Hgb Hct MCV MCH MCHC RDW Plt Count MPV Immature Gran % (Auto) Neut % (Auto) Lymph % (Auto) Ransom % (Auto) Eos % (Auto) Baso % (Auto) Lymph # (Auto) Ransom # (Auto) Eos # (Auto) Baso # (Auto) Abs Immat Gran (auto) Absolute Neuts (auto) Absolute Nucleated RBC Nucleated RBC % (auto) D-Dimer < 200 Sodium Potassium Chloride Carbon Dioxide Anion Gap BUN Creatinine Estim Creat Clear Calc Estimated GFR POC Glucose Random Glucose Lactic Acid Calcium Total Bilirubin Direct Bilirubin AST ALT Alkaline Phosphatase Troponin I High Sens 5.3 Total Protein Albumin Lipase TSH COVID-19 ([facility]) Negative COVID-19 Clin Com See Note 12/14/20 12/14/20 12/14/20 06:39 06:39 06:39 WBC 11.3 H RBC 5.53 Hgb 16.5 Hct 49.8 MCV 90.1 MCH 29.8 MCHC 33.1 RDW 14.7 Plt Count 218 D MPV 10.1 Immature Gran % (Auto) 0.7 H Neut % (Auto) 63.9 Lymph % (Auto) 27.1 Ransom % (Auto) 6.3 Eos % (Auto) 1.2 Baso % (Auto) 0.8 Lymph # (Auto) 3.1 Ransom # (Auto) 0.7 Eos # (Auto) 0.1 Baso # (Auto) 0.1 Abs Immat Gran (auto) 0.08 H Absolute Neuts (auto) 7.2 Absolute Nucleated RBC 0.000 Nucleated RBC % (auto) 0.0 D-Dimer Sodium 141 Potassium 4.2 Chloride 112 H Carbon Dioxide 21 L Anion Gap 12 BUN 19 H Creatinine 0.80 Estim Creat Clear Calc 114.8 Estimated GFR > 60 POC Glucose Random Glucose 110 Lactic Acid Calcium 8.7 D Total Bilirubin Direct Bilirubin AST ALT Alkaline Phosphatase Troponin I High Sens Total Protein Albumin Lipase TSH 0.59 COVID-19 ([facility]) COVID-19 Clin Com 12/14/20 08:31 WBC RBC Hgb Hct MCV MCH MCHC RDW Plt Count MPV Immature Gran % (Auto) Neut % (Auto) Lymph % (Auto) Ransom % (Auto) Eos % (Auto) Baso % (Auto) Lymph # (Auto) Ransom # (Auto) Eos # (Auto) Baso # (Auto) Abs Immat Gran (auto) Absolute Neuts (auto) Absolute Nucleated RBC Nucleated RBC % (auto) D-Dimer Sodium Potassium Chloride Carbon Dioxide Anion Gap BUN Creatinine Estim Creat Clear Calc Estimated GFR POC Glucose 105 Random Glucose Lactic Acid Calcium Total Bilirubin Direct Bilirubin AST ALT Alkaline Phosphatase Troponin I High Sens Total Protein Albumin Lipase TSH COVID-19 ([facility]) COVID-19 Clin Com ECG Attestation: I personally reviewed and interpreted this ECG as follows: Interpretation: EKG with atrial fibrillation at 138/Min. Nonspecific ST-T changes. Repeat EKG with sinus rhythm. Imaging Radiologist's impression: Impressions Abdomen/Pelvis CT 12/13/20 16:31 IMPRESSION: 1. There are is a small spigelian-type hernia is seen in the left lower quadrant containing only fat. 2. Mild hepatomegaly with fatty infiltration. 3. Benign bilateral renal cysts. 4. Marked calcific atherosclerotic changes. Chest X-Ray 12/13/20 20:32 IMPRESSION: No acute pulmonary pathology. Assessment and Plan (1) Atrial fibrillation with rapid ventricular response: Status: Acute High sensitivity troponins are in the normal range. Overall, atrial fibrillation duration is quite short. We will get an echocardiogram for cardiac function assessment. Then we will decide on appropriateness of anticoagulation. He does have risk factors but the actual duration of arrhythmia is only a few hours.
--- NOTE | 2020-12-14 11:26 | MHC.CM.PN ---
pt lives c his in their home. he reports he is independent in his care. he doesn't use any AD c ambulation. pt's can help him c any needs he may have. this will include a ride home at dc. pt denies the need for vna at dc. dc plan is home no svcs. cm to cont. to follow.
--- NOTE | 2020-12-14 13:00 | CA_ITS ---
Transthoracic Echocardiogram Patient (Last, First, Middle): Bran Jesus, Gender: Male Date of : 1965 Age: 55 Procedure Date: 12/14/2020 Procedure Type: Transthoracic Echocardiogram Location: ER Height: 172.72 cm Weight: 96.62 kg BSA: 2.10 m2 Heart Rate: bpm BP: 127 / 84 mmHg Tank Washer: Referring MD: Severino Mccarthy MD Symptoms: new afib Study Quality: Fair ECG Rhythm: Sinus Conclusions: - The left ventricular systolic function is hyperdynamic. The visually estimated ejection fraction is >70%. - There is mild mitral annular calcification. - There is mild calcification of the aortic valve. - No obvious valvular pathology seen on this study. Findings Left Ventricle Normal left ventricular cavity size. There is mildly increased left ventricular wall thickness. The left ventricular systolic function is hyperdynamic. The visually estimated ejection fraction is >70%. There is no evidence of regional wall motion abnormalities. Diastolic function is normal for age. Right Ventricle Normal right ventricular cavity size and systolic function. Atria The left atrium is mildly dilated. The right atrium is normal in size. Aortic Valve There is a normal trileaflet aortic valve. There is mild calcification of the aortic valve. There is no aortic valve stenosis. There is no aortic valve regurgitation. Mitral Valve The mitral valve appears normal. There is mild mitral annular calcification. There is trace mitral valve regurgitation. There is no mitral valve stenosis. Pulmonic Valve The pulmonic valve was not well visualized. Tricuspid Valve Normal tricuspid valve structure. There is trace tricuspid valve regurgitation. The pulmonary artery systolic pressure is normal. Great Vessels The asc aorta is normal in size. Venous The inferior vena cava is normal in size and collapses greater than 50% with inspiration. Pericardium/Pleural There is no evidence of pericardial effusion. Prior Study Comparison No prior study available for comparison. Recommendations, Care & Conclusions No obvious valvular pathology seen on this study. Measurements 2D Linear Measurements IVSd: 1.27 0.6-0.9/0.6-1.0 cm LVIDd: 3.75 3.9-5.3/4.2-5.9 cm LVIDd Index: 1.79 2.4-3.2/2.2-3.1 cm/m2 LVIDs: 2.45 2.0-3.6 cm LVPWd: 1.30 0.7-1.1 cm Ao Root: 3.80 2.1-3.5 cm LA Diam: 3.60 2.7-3.8/3.0-4.0 cm LAIDs Index: 1.71 1.5-2.3 cm/m2 LV Mass: 207.69 67-162/88-224 g LV Mass Index: 98.90 43-95/49-115 g/m2 LVOT Diam: 2.50 3.0+(-)1.3 cm 2D Systolic Function EF 4C: 72.80 >55% Mitral Valve MV Pk E: 0.74 MV PK A: 1.03 MV Decel Time: 225.00 E/A: 0.70 E'Lateral: 14.20 E'Medial: 9.96 E/E' Med: 7.40 E/E' Lat: 5.20 PHT: 66.00 MVA PHT: 3.33 Decel [place]: 3.27 Aortic Valve AoV Pk Jayson: 1.43 AoV Mn Jayson: 0.93 AoV VTI: 0.32 AoV Pk Grad: 8.00 Aov Mn Grad: 4.00 NABOR Cont.VTI: 4.38 LVOT LVOT Pk Jayson: 1.07 LVOT Mn Jayson: 0.64 LVOT VTI: 0.28 LVOT Pk Grad: 5.00 LVOT Mn Grad: 2.00 LVOT Diam: 2.50 LVOT Area: 4.91 Diastolic Function MV Pk E: 0.74 MV Pk A: 1.03 E/A: 0.70 E'Medial: 9.96 E/E' Med: 7.40 E' Laterial: 14.20 E/E' Lat: 5.20 Tricuspid Valve TR Pk Jayson: 1.71 TR Pk Grad: 12.00 RA Press: 3.00 RVSP: 15.00 Great Vessels Aorta Ao Root-2D: 3.80 2.0-3.7 cm Ao Asc: 3.40 2.1-3.4 cm Pulmonary Valve PV Pk Jayson: 1.00 Peak PV Grad: 4.00 Updated in Other Vendor System with Status of Final Pascual Garcia MD electronically signed on 12/14/2020 12:39:14 PM with status of Final
--- NOTE | 2020-12-14 13:18 | P.PNIM_ITS ---
Subjective Subjective Date of Service: 12/14/20 Interval History: llq pain Cardiovascular Cardiovascular: Reports no additional cardiovascular complaints Gastrointestinal Gastrointestinal: Reports no additional gastrointestinal complaints Physical Exam Vital Signs: Vital Signs: Last Vital Signs Temp 97.9 F 12/14/20 07:48 Pulse 75 12/14/20 09:29 Resp 15 12/14/20 07:48 BP 127/81 12/14/20 09:29 Pulse Ox 94 12/14/20 07:48 Body Mass Index 32.3 General: AO X 3, no acute distress Resp: CTA bilateral CVS: S1,S2,RRR GI: soft, non tender, non distended, no LLQ tenderness Neuro: motor grossly intact Psych: appropriate affect Objective Data Current Medications Generic Name Dose Route Start Last Admin Trade Name Freq PRN Reason Stop Dose Admin Acetaminophen 650 mg 12/13/20 22:49 Acetaminophen 325 Mg Tablet PO Q6H PRN Pain, Mild (Pain Scale 1-3) Aspirin 81 mg 12/15/20 09:00 Aspirin Enteric Coated 81 Mg Tablet.Dr PO DAILY [facility] Diltiazem HCl 120 mg 12/14/20 11:45 Diltiazem Hcl Cd 120 Mg Cap.Er.Deg PO DAILY [facility] Protocol Hydralazine HCl 10 mg 12/14/20 09:00 12/14/20 09:29 Hydralazine Hcl 10 Mg Tablet PO 10 mg BID JEAN-PIERRE Administration Protocol Hydromorphone HCl 0.5 mg 12/14/20 06:07 12/14/20 09:29 Hydromorphone Hcl 0.5 Mg/0.5 Ml Syringe IVPUSH 0.5 mg Q6H PRN Administration Breakthrough Pain Sodium Chloride 1,000 mls @ 100 mls/hr 12/13/20 23:00 12/14/20 10:21 Ns IVCONT 100 mls/hr .Q10H JEAN-PIERRE Administration Insulin Human Lispro 0 unit 12/14/20 07:30 12/14/20 09:27 Insulin Lispro 100 Unit/Ml 3 Ml Vial SUBCUT Not Given QIDACHS [facility] Protocol Metoprolol Tartrate 5 mg 12/13/20 22:49 Metoprolol Tartrate 5 Mg/5 Ml Vial IVPUSH Q6H PRN HR>120 Non-Formulary Medication 750 mcg 12/14/20 13:30 Buprenorphine Hcl BUCCAL Q12H [facility] Pramipexole Dihydrochloride 0.5 mg 12/14/20 09:00 12/14/20 10:18 Pramipexole Di-Hcl 0.25 Mg Tablet PO 0.5 mg BID JEAN-PIERRE Administration Sodium Chloride 3 ml 12/14/20 00:00 12/14/20 09:32 0.9 % Sodium Chloride Flush 3 Ml Syringe IVFLUSH 3 ml QSHIFT JEAN-PIERRE Administration Labs CBC & Chem 7: 12/14/20 06:39 12/14/20 06:39 Assessment and Plan (1) Atrial fibrillation with rapid ventricular response: Status: Acute Assessment and Plan: 55-year-old male with a past medical history of hypertension, diabetes, history of diverticulitis status post colectomy, subsequent multiple abdominal wall hernia/surgery, chronic abdominal wall pain presented to the hospitalwith left lower quadrant abdominal pain. Left lower quadrant abdominal pain: CT scan showed small spigelian type hernia surgery following, no acute intervention at this time Pain control. New onset AFib converted back to sinus cardizem echo cardio following DM insulin HTN hydralazine
--- NOTE | 2020-12-14 13:18 | PC.NURSE ---
report given to imc rn
[2020-12-14] MEDS: dilTIAZem HCL CD 120 MG CAP.ER.DEG PO (13:22)
[2020-12-14 16:32] LABS: Glucose, Whole Blood 139 mg/dL (60-115)
[2020-12-14 20:29] LABS: Glucose, Whole Blood 92 mg/dL (60-115)
[2020-12-15] VITALS (8 sets, daily range): BP systolic 115–146; BP diastolic 63–80; PULSE 59–73; RESP 15–18; TEMP 36.2–37.2; O2SAT 95–99
--- NOTE | 2020-12-15 | CA_ITS ---
Acquisition Time: 2020-12-16 09:34:46 Total Exercise Time: 00:02:00 Test Indications: Pre-Op Evaluation Medications: SEE EMAR Protocol: LEXISCAN Max HR: 105 BPM 64% of Pred: 163 BPM Max BP: 126/076 mmHG Max Work Load: 1.0 METS Pharmacological stress test using Lexiscan while sitting. Pt tolerated well, denies any anginal sx. EKG without any arrhythmias, non-diagnostic for ischemia. Nuclear images to follow. Normotensive response to exercise. Test reviewed with Dr. Garcia Referred By: William Lee Overread By: Ana Whitney NP
[2020-12-15] MEDS: HYDROmorphone HCl 0.5 MG/0.5 ML SYRINGE IVPUSH ×3 (00:27→17:51)
[2020-12-15] MEDS: 0.9 % Sodium Chloride 1,000 ML 100 ML IVCONT ×3 (00:59→19:54)
[2020-12-15] MEDS: Pramipexole Di-HCL 0.25 MG TABLET 0.5 MG PO ×2 (06:10→17:50)
[2020-12-15 06:25] LABS: MANUAL DIFF FLAG NO
[2020-12-15 06:40] LABS: Basophils Absolute Auto 0.1 X10*3/uL (0.0-0.2); Basophils Percent Auto 0.6 % (0-2); Eosinophils Absolute Auto 0.2 X10*3/uL (0.0-0.4); Eosinophils Percent Auto 2.1 % (0-4); Hematocrit 48.4 % (42-52); Imm Gran Abs Auto 0.06 X10*3/uL (0.00-0.03); Imm Gran Pct Auto 0.6 % (0.0-0.4); Lymphocytes Absolute Auto 3.1 X10*3/uL (1.2-4.9); Lymphocytes Percent Auto 30.2 % (20-40); Mean Corpuscular HGB Conc 33.1 g/dl (31.0-36.0); Mean Corpuscular Hemoglobin 29.6 pg (27.0-33.0); Mean Corpuscular Volume 89.6 fL (80-98); Mean Platelet Volume 10.1 fL (9.4-12.4); Monocytes Absolute Auto 0.7 X10*3/uL (0.1-1.2); Monocytes Percent Auto 7.1 % (2-11); Neutrophils Absolute Auto 6.1 X10*3/uL (2.0-8.3); Neutrophils Percent Auto 59.4 % (45-73); Platelet Count 223 X10*3/uL (160-400); Red Cell Distribution Width 14.3 % (11.0-16.0); White Blood Count 10.2 X10*3/uL (4.8-10.8)
[2020-12-15 07:08] LABS: Anion Gap 15 (12-20); Blood Urea Nitrogen 14 mg/dL (9-16); Calcium 8.4 mg/dL (8.4-10.2); Carbon Dioxide 21 mmol/L (22-29); Chloride 107 mmol/L (96-108); Creatinine Clr Calc Pharmacy 122.4; Estimated Glomerular Filt Rate > 60; Glucose Fasting 98 mg/dL (60-99); Magnesium 2.3 mg/dL (1.6-2.6); Potassium 4.1 mmol/L (3.3-5.1); Sodium 139 mmol/L (135-145)
[2020-12-15 07:28] LABS: Glucose, Whole Blood 98 mg/dL (60-115)
[2020-12-15] MEDS: hydrALAZINE HCl 10 MG TABLET PO (08:22)
[2020-12-15] MEDS: 0.9 % Sodium Chloride Flush 3 ML SYRINGE IVFLUSH ×3 (08:22→23:53)
[2020-12-15] MEDS: dilTIAZem HCL CD 120 MG CAP.ER.DEG PO (08:22)
[2020-12-15] MEDS: Aspirin Enteric Coated 81 MG TABLET.DR PO (08:22)
--- NOTE | 2020-12-15 08:58 | P.PNGS_ITS ---
Subjective Subjective Date of Service: 12/15/20 Interval history: Says he continues to have pain on the left side where the hernia is States he does not get his pain medications promptly No GI complaints Tolerating diet Physical Exam Vital Signs: Vital Signs: Last Vital Signs Temp 97.6 F 12/15/20 07:53 Pulse 73 12/15/20 08:22 Resp 18 12/15/20 07:53 BP 138/77 12/15/20 08:22 Pulse Ox 95 12/15/20 07:53 Body Mass Index 32.3 Laboratory Results - last 24 hr 12/14/20 12/14/20 12/15/20 16:14 20:07 05:47 WBC 10.2 RBC 5.40 Hgb 16.0 Hct 48.4 MCV 89.6 MCH 29.6 MCHC 33.1 RDW 14.3 Plt Count 223 MPV 10.1 Immature Gran % (A uto) 0.6 H Neut % (Auto) 59.4 Lymph % (Auto) 30.2 [place] % (Auto) 7.1 Eos % (Auto) 2.1 Baso % (Auto) 0.6 Lymph # (Auto) 3.1 [place] # (Auto) 0.7 Eos # (Auto) 0.2 Baso # (Auto) 0.1 Abs Immat Gran (au to) 0.06 H Absolute Neuts (au to) 6.1 Absolute Nucleated RBC 0.000 Nucleated RBC % (a uto) 0.0 Sodium Potassium Chloride Carbon Dioxide Anion Gap BUN Creatinine Estim Creat Clear Calc Estimated GFR POC Glucose 139 H 92 Fasting Glucose Calcium Magnesium 12/15/20 12/15/20 05:47 07:07 WBC RBC Hgb Hct MCV MCH MCHC RDW Plt Count MPV Immature Gran % (A uto) Neut % (Auto) Lymph % (Auto) [place] % (Auto) Eos % (Auto) Baso % (Auto) Lymph # (Auto) [place] # (Auto) Eos # (Auto) Baso # (Auto) Abs Immat Gran (au to) Absolute Neuts (au to) Absolute Nucleated RBC Nucleated RBC % (a uto) Sodium 139 Potassium 4.1 Chloride 107 Carbon Dioxide 21 L Anion Gap 15 BUN 14 Creatinine 0.75 Estim Creat Clear Calc 122.4 Estimated GFR > 60 POC Glucose 98 Fasting Glucose 98 Calcium 8.4 Magnesium 2.3 Const: Other: Complaints of pain General: no acute distress Resp: Effort & Inspection: normal respiratory effort Cardio: Rhythm: regular rhythm GI: Other: Tender on the left side Palpation (GI): Soft to palpation, not firm and no guarding Progress Note: A&P Assessment and plan (1) Incisional hernia: Status: Acute Assessment and Plan: Has spigelian type fat containing hernia on the left side of the abdomen Pain management for now No GI complaints Cardiology following patient for new onset AFib Explained the above to patient Will continue to follow closely Fall Risk Details Current Medications: Current Medications Generic Name Dose Route Start Last Admin Trade Name Freq PRN Reason Stop Dose Admin Acetaminophen 650 mg 12/13/20 22:49 Acetaminophen 325 Mg Tablet PO Q6H PRN Pain, Mild (Pain Scale 1-3) Aspirin 81 mg 12/15/20 09:00 12/15/20 08:22 Aspirin Enteric Coated 81 Mg Tablet.Dr PO 81 mg DAILY JEAN-PIERRE Administration Diltiazem HCl 120 mg 12/14/20 11:45 12/15/20 08:22 Diltiazem Hcl Cd 120 Mg Cap.Er.Deg PO 120 mg DAILY JEAN-PIERRE Administration Protocol Hydralazine HCl 10 mg 12/14/20 09:00 12/15/20 08:22 Hydralazine Hcl 10 Mg Tablet PO 10 mg BID JEAN-PIERRE Administration Protocol Hydromorphone HCl 0.5 mg 12/14/20 06:07 12/15/20 08:23 Hydromorphone Hcl 0.5 Mg/0.5 Ml Syringe IVPUSH 0.5 mg Q6H PRN Administration Breakthrough Pain Sodium Chloride 1,000 mls @ 100 mls/hr 12/13/20 23:00 12/15/20 00:59 Ns IVCONT 100 mls/hr .Q10H JEAN-PIERRE Administration Insulin Human Lispro 0 unit 12/14/20 07:30 12/15/20 08:19 Insulin Lispro 100 Unit/Ml 3 Ml Vial SUBCUT Not Given Q[facility]ACHS [facility] Protocol Metoprolol Tartrate 5 mg 12/13/20 22:49 Metoprolol Tartrate 5 Mg/5 Ml Vial IVPUSH Q6H PRN HR>120 Non-Formulary Medication 750 mcg 12/14/20 13:30 Buprenorphine Hcl BUCCAL Q12H [facility] Pramipexole Dihydrochloride 0.5 mg 12/15/20 05:00 12/15/20 06:10 Pramipexole Di-Hcl 0.25 Mg Tablet PO 0.5 mg BID@0500,1700 JEAN-PIERRE Administration Sodium Chloride 3 ml 12/14/20 00:00 12/15/20 08:22 0.9 % Sodium Chloride Flush 3 Ml Syringe IVFLUSH 3 ml QSHIFT JEAN-PIERRE Administration Time Spent With Patient Time: Total time spent is greater than 50% in coordination of care (as documented) at patient's floor/unit and/or counseling patient: Time with patient: 15 - 24 minutes
[2020-12-15 11:07] LABS: Glucose, Whole Blood 154 mg/dL (60-115)
--- NOTE | 2020-12-15 11:49 | P.PNIM_ITS ---
Subjective Subjective Date of Service: 12/15/20 Interval History: still with LLQ pain Cardiovascular Cardiovascular: Reports no additional cardiovascular complaints Gastrointestinal Gastrointestinal: Reports no additional gastrointestinal complaints Physical Exam Vital Signs: Vital Signs: Last Vital Signs Temp 97.1 F 12/15/20 11:33 Pulse 69 12/15/20 11:33 Resp 18 12/15/20 11:33 BP 146/79 H 12/15/20 11:33 Pulse Ox 96 12/15/20 11:33 Body Mass Index 32.3 General: AO X 3, no acute distress Resp: CTA bilateral CVS: S1,S2,RRR GI: soft, non tender, non distended, no LLQ tenderness Neuro: motor grossly intact Psych: appropriate affect Objective Data Current Medications Generic Name Dose Route Start Last Admin Trade Name Freq PRN Reason Stop Dose Admin Acetaminophen 650 mg 12/13/20 22:49 Acetaminophen 325 Mg Tablet PO Q6H PRN Pain, Mild (Pain Scale 1-3) Aspirin 81 mg 12/15/20 09:00 12/15/20 08:22 Aspirin Enteric Coated 81 Mg Tablet.Dr PO 81 mg DAILY [facility]-PIERRE Administration Diltiazem HCl 120 mg 12/14/20 11:45 12/15/20 08:22 Diltiazem Hcl Cd 120 Mg Cap.Er.Deg PO 120 mg DAILY [facility]AN-PIERRE Administration Protocol Hydralazine HCl 10 mg 12/14/20 09:00 12/15/20 08:22 Hydralazine Hcl 10 Mg Tablet PO 10 mg BID JEAN-PIERRE Administration Protocol Hydromorphone HCl 0.5 mg 12/14/20 06:07 12/15/20 08:23 Hydromorphone Hcl 0.5 Mg/0.5 Ml Syringe IVPUSH 0.5 mg Q6H PRN Administration Breakthrough Pain Sodium Chloride 1,000 mls @ 100 mls/hr 12/13/20 23:00 12/15/20 10:22 Ns IVCONT 100 mls/hr .Q10H JEAN-PIERRE Administration Insulin Human Lispro 0 unit 12/14/20 07:30 12/15/20 08:19 Insulin Lispro 100 Unit/Ml 3 Ml Vial SUBCUT Not Given QIDACHS [facility] Protocol Metoprolol Tartrate 5 mg 12/13/20 22:49 Metoprolol Tartrate 5 Mg/5 Ml Vial IVPUSH Q6H PRN HR>120 Non-Formulary Medication 750 mcg 12/14/20 13:30 Buprenorphine Hcl BUCCAL Q12H JEAN-PIERRE Oxycodone HCl 10 mg 12/15/20 09:01 Oxycodone Hcl Immed Release 5 Mg Tablet PO Q4H PRN Pain, Moderate (Pain Scale 4-6 Pramipexole Dihydrochloride 0.5 mg 12/15/20 05:00 12/15/20 06:10 Pramipexole Di-Hcl 0.25 Mg Tablet PO 0.5 mg BID@0500,1700 JEAN-PIERRE Administration Sodium Chloride 3 ml 12/14/20 00:00 12/15/20 08:22 0.9 % Sodium Chloride Flush 3 Ml Syringe IVFLUSH 3 ml QSHIFT JEAN-PIERRE Administration Labs CBC & Chem 7: 12/15/20 05:47 12/15/20 05:47 Assessment and Plan (1) Atrial fibrillation with rapid ventricular response: Status: Acute Assessment and Plan: 55-year-old male with a past medical history of hypertension, diabetes, history of diverticulitis status post colectomy, subsequent multiple abdominal wall hernia/surgery, chronic abdominal wall pain presented to the hospitalwith left lower quadrant abdominal pain. Left lower quadrant abdominal pain: CT scan showed small spigelian type hernia surgery following, possible surgical repair inpatient given history of PVD, plan for stress test prior to surgery New onset AFib converted back to sinus cardizem echo unremarkable transient, no need for a/c at this time DM insulin HTN hydralazine
--- NOTE | 2020-12-15 12:11 | P.PNCA_ITS ---
Subjective Subjective Date of Service: 12/15/20 Interval history: He has abdominal pain but no cardiac complaints. Review of Systems Review of Systems Yes all other systems are reviewed and are negative Constitutional: Denies chills and Denies fever(s) Cardiovascular: Reports as per HPI, Reports no additional cardiovascular complaints, Denies acrocyanosis, Denies cool extremities, Denies painful fingertips, Denies chest pain, Denies chest pain at rest, Denies diaphoresis, Denies syncope, Denies irregular heart rhythm, Denies claudication, Denies leg edema, Denies lightheadedness, Reports palpitations, Denies dyspnea and Denies dyspnea on exertion Respiratory: Denies cough, Denies dyspnea and Denies dyspnea on exertion Gastrointestinal: Reports no additional gastrointestinal complaints, Denies hematochezia and Denies change in bowel habits Genitourinary: Denies hematuria and Denies difficulty urinating Musculoskeletal: Denies back pain and Denies limited range of motion Denies syncope, Denies focal weakness and Denies convulsions Psychiatric: Denies depression and Denies mood swings Endocrine: Reports palpitations Physical Exam Vital Signs: Last Vital Signs Temp 97.1 F 12/15/20 11:33 Pulse 69 12/15/20 11:33 Resp 18 12/15/20 11:33 BP 146/79 H 12/15/20 11:33 Pulse Ox 96 12/15/20 11:33 Body Mass Index 32.3 Const General: cooperative, healthy appearing, comfortable and no acute distress; No acute distress or intoxicated appearing Nutritional Appearance: average body habitus Orientation/consciousness: patient oriented x3 HENMT Other: Unremarkable Head: Yes normal to inspection Ears: hearing grossly normal bilaterally Eyes General: appearance normal, both eyes and all related structures Visual Hare: normal visual hare by confrontation Neck Neck: Yes normal visual inspection, Yes no lymphadenopathy, No positive Brudzinski's sign, No positive Kernig's sign and No tender Thyroid: Thyroid normal Chest Chest palpation & inspection: normal inspection of the chest Resp Effort & Inspection: normal respiratory effort Auscultation: clear to auscultation bilaterally, no crackles and no wheezes Cardio Jugular venous distension: no JVD Palpation: normal PMI Rhythm: regular rhythm Heart sounds: S1 normal heart sound present, S2 normal heart sound present, no gallops, no murmurs and no rubs GI Inspection: Yes normal to inspection Palpation (GI): Soft to palpation, not firm, Tenderness to palpation present (GI) in the LLQ, no guarding and not rigid Percussion: Yes normal to percussion Auscultation: normal bowel sounds General: Yes no CVA tenderness Back/Spine/Pelvis Other: unremarkable Back: no CVA tenderness Skin General skin exam: no rashes or lesions noted Neuro General: patient oriented x3 Extrem General: Yes normal to inspection and Yes no clubbing, cyanosis or edema Psych Mental Status: mental status grossly normal Results Labs and Meds Result diagrams: 12/15/20 05:47 12/15/20 05:47 Lab results: Laboratory Results - last 24 hr 12/14/20 12/14/20 12/15/20 16:14 20:07 05:47 WBC 10.2 RBC 5.40 Hgb 16.0 Hct 48.4 MCV 89.6 MCH 29.6 MCHC 33.1 RDW 14.3 Plt Count 223 MPV 10.1 Immature Gran % (Auto) 0.6 H Neut % (Auto) 59.4 Lymph % (Auto) 30.2 [place] % (Auto) 7.1 Eos % (Auto) 2.1 Baso % (Auto) 0.6 Lymph # (Auto) 3.1 [place] # (Auto) 0.7 Eos # (Auto) 0.2 Baso # (Auto) 0.1 Abs Immat Gran (auto) 0.06 H Absolute Neuts (auto) 6.1 Absolute Nucleated RBC 0.000 Nucleated RBC % (auto) 0.0 Sodium Potassium Chloride Carbon Dioxide Anion Gap BUN Creatinine Estim Creat Clear Calc Estimated GFR POC Glucose 139 H 92 Fasting Glucose Calcium Magnesium 12/15/20 12/15/20 12/15/20 05:47 07:07 10:58 WBC RBC Hgb Hct MCV MCH MCHC RDW Plt Count MPV Immature Gran % (Auto) Neut % (Auto) Lymph % (Auto) [place] % (Auto) Eos % (Auto) Baso % (Auto) Lymph # (Auto) [place] # (Auto) Eos # (Auto) Baso # (Auto) Abs Immat Gran (auto) Absolute Neuts (auto) Absolute Nucleated RBC Nucleated RBC % (auto) Sodium 139 Potassium 4.1 Chloride 107 Carbon Dioxide 21 L Anion Gap 15 BUN 14 Creatinine 0.75 Estim Creat Clear Calc 122.4 Estimated GFR > 60 POC Glucose 98 154 H Fasting Glucose 98 Calcium 8.4 Magnesium 2.3 Progress Note: A&P Assessment and plan (1) Atrial fibrillation with rapid ventricular response: Status: Acute (2) Preoperative cardiovascular examination: Status: Acute Assessment and Plan: High sensitivity troponins are in the normal range. Overall, atrial fibrilla tion duration is quite short. He does have risk factors, but as the episode was quite short, no absolute need for anticoagulation. He clearly had symptoms at that time and denies any similar episodes in the past. This has also happened in the setting of abdominal pain. High sensitivity troponin was normal at 5.3. With regard to planned hernia surgery, we can plan on stress testing. Fall Risk Details Current Medications: Current Medications Generic Name Dose Route Start Last Admin Trade Name Freq PRN Reason Stop Dose Admin Acetaminophen 650 mg 12/13/20 22:49 Acetaminophen 325 Mg Tablet PO Q6H PRN Pain, Mild (Pain Scale 1-3) Aspirin 81 mg 12/15/20 09:00 12/15/20 08:22 Aspirin Enteric Coated 81 Mg Tablet.Dr PO 81 mg DAILY JEAN-PIERRE Administration Diltiazem HCl 120 mg 12/14/20 11:45 12/15/20 08:22 Diltiazem Hcl Cd 120 Mg Cap.Er.Deg PO 120 mg DAILY JEAN-PIERRE Administration Protocol Hydralazine HCl 10 mg 12/14/20 09:00 12/15/20 08:22 Hydralazine Hcl 10 Mg Tablet PO 10 mg BID JEAN-PIERRE Administration Protocol Hydromorphone HCl 0.5 mg 12/14/20 06:07 12/15/20 08:23 Hydromorphone Hcl 0.5 Mg/0.5 Ml Syringe IVPUSH 0.5 mg Q6H PRN Administration Breakthrough Pain Sodium Chloride 1,000 mls @ 100 mls/hr 12/13/20 23:00 12/15/20 10:22 Ns IVCONT 100 mls/hr .Q10H JEAN-PIERRE Administration Insulin Human Lispro 0 unit 12/14/20 07:30 12/15/20 08:19 Insulin Lispro 100 Unit/Ml 3 Ml Vial SUBCUT Not Given QIDACHS [facility] Protocol Metoprolol Tartrate 5 mg 12/13/20 22:49 Metoprolol Tartrate 5 Mg/5 Ml Vial IVPUSH Q6H PRN HR>120 Non-Formulary Medication 750 mcg 12/14/20 13:30 Buprenorphine Hcl BUCCAL Q12H JEAN-PIERRE Oxycodone HCl 10 mg 12/15/20 09:01 Oxycodone Hcl Immed Release 5 Mg Tablet PO Q4H PRN Pain, Moderate (Pain Scale 4-6 Pramipexole Dihydrochloride 0.5 mg 12/15/20 05:00 12/15/20 06:10 Pramipexole Di-Hcl 0.25 Mg Tablet PO 0.5 mg BID@0500,1700 JEAN-PIERRE Administration Sodium Chloride 3 ml 12/14/20 00:00 12/15/20 08:22 0.9 % Sodium Chloride Flush 3 Ml Syringe IVFLUSH 3 ml QSHIFT JEAN-PIERRE Administration Time Spent With Patient Time: Total time spent is greater than 50% in coordination of care (as documented) at patient's floor/unit and/or counseling patient: Time with patient: less than 15 minutes
[2020-12-15] MEDS: Insulin Lispro 100 UNIT/ML 3 ML VIAL SUBCUT (13:41)
--- NOTE | 2020-12-15 13:46 | PC.NURSE ---
to resting stress test via W/C with transporters
[2020-12-15] MEDS: oxyCODONE HCl Immed Release 5 MG TABLET 10 MG PO ×2 (15:27→19:52)
[2020-12-15 16:32] LABS: Glucose, Whole Blood 113 mg/dL (60-115)
[2020-12-15 20:21] LABS: Glucose, Whole Blood 139 mg/dL (60-115)
[2020-12-16] MEDS: HYDROmorphone HCl 0.5 MG/0.5 ML SYRINGE IVPUSH ×4 (01:21→16:15)
[2020-12-16 03:11] VITALS: BP 114/63; PULSE 62; RESP 14; TEMP 36.5; O2SAT 96
[2020-12-16] MEDS: 0.9 % Sodium Chloride 1,000 ML 100 ML IVCONT (05:12)
[2020-12-16] MEDS: Pramipexole Di-HCL 0.25 MG TABLET 0.5 MG PO ×2 (05:36→16:14)
[2020-12-16 07:29] VITALS: BP 140/85; PULSE 66; RESP 18; TEMP 36.4; O2SAT 96
[2020-12-16 07:29] LABS: Glucose, Whole Blood 117 mg/dL (60-115)
[2020-12-16 07:52] VITALS: BP 140/85; PULSE 66
[2020-12-16] MEDS: dilTIAZem HCL CD 120 MG CAP.ER.DEG PO (07:52)
[2020-12-16] MEDS: hydrALAZINE HCl 10 MG TABLET PO (07:52)
[2020-12-16] MEDS: Aspirin Enteric Coated 81 MG TABLET.DR PO (07:53)
[2020-12-16] MEDS: 0.9 % Sodium Chloride Flush 3 ML SYRINGE IVFLUSH ×2 (07:59→16:16)
[2020-12-16 08:17] LABS: MANUAL DIFF FLAG NO
[2020-12-16 08:42] LABS: Basophils Absolute Auto 0.1 X10*3/uL (0.0-0.2); Basophils Percent Auto 0.6 % (0-2); Eosinophils Absolute Auto 0.2 X10*3/uL (0.0-0.4); Eosinophils Percent Auto 2.1 % (0-4); Hematocrit 45.7 % (42-52); Hemoglobin 14.9 g/dl (14.0-18.0); Imm Gran Abs Auto 0.05 X10*3/uL (0.00-0.03); Imm Gran Pct Auto 0.6 % (0.0-0.4); Lymphocytes Absolute Auto 2.5 X10*3/uL (1.2-4.9); Lymphocytes Percent Auto 27.9 % (20-40); Mean Corpuscular HGB Conc 32.6 g/dl (31.0-36.0); Mean Corpuscular Hemoglobin 29.3 pg (27.0-33.0); Mean Platelet Volume 10.3 fL (9.4-12.4); Monocytes Absolute Auto 0.7 X10*3/uL (0.1-1.2); Monocytes Percent Auto 7.7 % (2-11); Neutrophils Absolute Auto 5.4 X10*3/uL (2.0-8.3); Neutrophils Percent Auto 61.1 % (45-73); Platelet Count 189 X10*3/uL (160-400); Red Blood Count 5.08 X10*6/uL (4.60-5.80); Red Cell Distribution Width 14.1 % (11.0-16.0); White Blood Count 8.8 X10*3/uL (4.8-10.8)
[2020-12-16 08:54] LABS: Anion Gap 12 (12-20); Blood Urea Nitrogen 12 mg/dL (9-16); Calcium 8.2 mg/dL (8.4-10.2); Carbon Dioxide 24 mmol/L (22-29); Chloride 109 mmol/L (96-108); Creatinine Clr Calc Pharmacy 119.2; Estimated Glomerular Filt Rate > 60; Glucose Fasting 117 mg/dL (60-99); Potassium 4.1 mmol/L (3.3-5.1); Sodium 141 mmol/L (135-145)
--- NOTE | 2020-12-16 09:59 | HO.PM.IMPN ---
Subjective Subjective Date of Service: 12/16/20 Interval History: still with severe LLQ pain on movement, Cardiovascular Cardiovascular: Reports no additional cardiovascular complaints Respiratory Respiratory: Reports no additional respiratory complaints Physical Exam Vital Signs: Vital Signs: Last Vital Signs Temp 97.6 F 12/16/20 07:29 Pulse 66 12/16/20 07:52 Resp 18 12/16/20 07:29 BP 140/85 H 12/16/20 07:52 Pulse Ox 96 12/16/20 07:29 Body Mass Index 32.3 General: AO X 3, no acute distress Resp: CTA bilateral CVS: S1,S2,RRR GI: soft, non tender, non distended, no LLQ tenderness Neuro: motor grossly intact Psych: appropriate affect Objective Data Current Medications Generic Name Dose Route Start Last Admin Trade Name Freq PRN Reason Stop Dose Admin Acetaminophen 650 mg 12/13/20 22:49 Acetaminophen 325 Mg Tablet PO Q6H PRN Pain, Mild (Pain Scale 1-3) Aspirin 81 mg 12/15/20 09:00 12/16/20 07:53 Aspirin Enteric Coated 81 Mg Tablet.Dr PO 81 mg DAILY JEAN-PIERRE Administration Diltiazem HCl 120 mg 12/14/20 11:45 12/16/20 07:52 Diltiazem Hcl Cd 120 Mg Cap.Er.Deg PO 120 mg DAILY JEAN-PIERRE Administration Protocol Hydralazine HCl 10 mg 12/14/20 09:00 12/16/20 07:52 Hydralazine Hcl 10 Mg Tablet PO 10 mg BID JEAN-PIERRE Administration Protocol Hydromorphone HCl 0.5 mg 12/14/20 06:07 12/16/20 07:53 Hydromorphone Hcl 0.5 Mg/0.5 Ml Syringe IVPUSH 0.5 mg Q6H PRN Administration Breakthrough Pain Sodium Chloride 1,000 mls @ 100 mls/hr 12/13/20 23:00 12/16/20 05:12 Ns IVCONT 100 mls/hr .Q10H JEAN-PIERRE Administration Insulin Human Lispro 0 unit 12/14/20 07:30 12/16/20 07:34 Insulin Lispro 100 Unit/Ml 3 Ml Vial SUBCUT Not Given QIDACHS [facility]-PIERRE Protocol Metoprolol Tartrate 5 mg 12/13/20 22:49 Metoprolol Tartrate 5 Mg/5 Ml Vial IVPUSH Q6H PRN HR>120 Non-Formulary Medication 750 mcg 12/14/20 13:30 Buprenorphine Hcl BUCCAL Q12H JEAN-PIERRE Oxycodone HCl 10 mg 12/15/20 09:01 12/15/20 19:52 Oxycodone Hcl Immed Release 5 Mg Tablet PO 10 mg Q4H PRN Administration Pain, Moderate (Pain Scale 4-6 Pramipexole Dihydrochloride 0.5 mg 12/15/20 05:00 12/16/20 05:36 Pramipexole Di-Hcl 0.25 Mg Tablet PO 0.5 mg BID@0500,1700 JEAN-PIERRE Administration Sodium Chloride 3 ml 12/14/20 00:00 12/16/20 07:59 0.9 % Sodium Chloride Flush 3 Ml Syringe IVFLUSH 3 ml QSHIFT JEAN-PIERRE Administration Labs CBC & Chem 7: 12/16/20 07:51 12/16/20 07:51 Assessment and Plan (1) Atrial fibrillation with rapid ventricular response: Status: Acute Assessment and Plan: 55-year-old male with a past medical history of hypertension, diabetes, history of diverticulitis status post colectomy, subsequent multiple abdominal wall hernia/surgery, chronic abdominal wall pain presented to the hospital with left lower quadrant abdominal pain. Left lower quadrant abdominal pain: CT scan showed small spigelian type hernia surgery following, possible surgical repair inpatient vs outpatient given history of PVD, plan for stress test prior to surgery New onset AFib converted back to sinus cardizem 120 cd daily echo unremarkable transient, no need for a/c at this time DM insulin HTN hydralazine
--- NOTE | 2020-12-16 11:44 | MHC.CM.PN ---
per rounds pt remins on iv meds will be having a stress no dc date at this time
[2020-12-16 11:52] VITALS: BP 148/90; PULSE 71; RESP 20; TEMP 36.6; O2SAT 95
[2020-12-16 11:58] LABS: Glucose, Whole Blood 173 mg/dL (60-115)
[2020-12-16] MEDS: oxyCODONE HCl Immed Release 5 MG TABLET 10 MG PO (12:29)
[2020-12-16] MEDS: Insulin Lispro 100 UNIT/ML 3 ML VIAL SUBCUT (12:30)
--- NOTE | 2020-12-16 14:17 | P.PNCA_ITS ---
Subjective Subjective Date of Service: 12/16/20 Interval history: He states that he feels well. No specific complaints. Review of Systems Review of Systems Yes all other systems are reviewed and are negative Constitutional: Denies chills and Denies fever(s) Cardiovascular: Reports as per HPI, Reports no additional cardiovascular complaints, Denies acrocyanosis, Denies cool extremities, Denies painful fingertips, Denies chest pain, Denies chest pain at rest, Denies diaphoresis, Denies syncope, Denies irregular heart rhythm, Denies claudication, Denies leg edema, Denies lightheadedness, Reports palpitations, Denies dyspnea and Denies dyspnea on exertion Respiratory: Denies cough, Denies dyspnea and Denies dyspnea on exertion Gastrointestinal: Reports no additional gastrointestinal complaints, Denies hematochezia and Denies change in bowel habits Genitourinary: Denies hematuria and Denies difficulty urinating Musculoskeletal: Denies back pain and Denies limited range of motion Denies syncope, Denies focal weakness and Denies convulsions Psychiatric: Denies depression and Denies mood swings Endocrine: Reports palpitations Physical Exam Vital Signs: Last Vital Signs Temp 97.8 F 12/16/20 11:52 Pulse 71 12/16/20 11:52 Resp 20 12/16/20 11:52 BP 148/90 H 12/16/20 11:52 Pulse Ox 95 12/16/20 11:52 Body Mass Index 32.3 Const General: cooperative, healthy appearing, comfortable and no acute distress; No acute distress or intoxicated appearing Nutritional Appearance: average body habitus Orientation/consciousness: patient oriented x3 HENMT Other: Unremarkable Head: Yes normal to inspection Ears: hearing grossly normal bilaterally Eyes General: appearance normal, both eyes and all related structures Visual Hare: normal visual hare by confrontation Neck Neck: Yes normal visual inspection, Yes no lymphadenopathy, No positive Brudzinski's sign, No positive Kernig's sign and No tender Thyroid: Thyroid normal Chest Chest palpation & inspection: normal inspection of the chest Resp Effort & Inspection: normal respiratory effort Auscultation: clear to auscultation bilaterally, no crackles and no wheezes Cardio Jugular venous distension: no JVD Palpation: normal PMI Rhythm: regular rhythm Heart sounds: S1 normal heart sound present, S2 normal heart sound present, no gallops, no murmurs and no rubs GI Inspection: Yes normal to inspection Palpation (GI): Soft to palpation, not firm, Tenderness to palpation present (GI) in the LLQ, no guarding and not rigid Percussion: Yes normal to percussion Auscultation: normal bowel sounds General: Yes no CVA tenderness Back/Spine/Pelvis Other: unremarkable Back: no CVA tenderness Skin General skin exam: no rashes or lesions noted Neuro General: patient oriented x3 Extrem General: Yes normal to inspection and Yes no clubbing, cyanosis or edema Psych Mental Status: mental status grossly normal Results Labs and Meds Result diagrams: 12/16/20 07:51 12/16/20 07:51 Lab results: Laboratory Results - last 24 hr 12/15/20 12/15/20 12/16/20 16:20 20:01 07:13 WBC RBC Hgb Hct MCV MCH MCHC RDW Plt Count MPV Immature Gran % (Auto) Neut % (Auto) Lymph % (Auto) Smith % (Auto) Eos % (Auto) Baso % (Auto) Lymph # (Auto) Smith # (Auto) Eos # (Auto) Baso # (Auto) Abs Immat Gran (auto) Absolute Neuts (auto) Absolute Nucleated RBC Nucleated RBC % (auto) Sodium Potassium Chloride Carbon Dioxide Anion Gap BUN Creatinine Estim Creat Clear Calc Estimated GFR POC Glucose 113 139 H 117 H Fasting Glucose Calcium 12/16/20 12/16/20 12/16/20 07:51 07:51 11:51 WBC 8.8 RBC 5.08 Hgb 14.9 Hct 45.7 MCV 90.0 MCH 29.3 MCHC 32.6 RDW 14.1 Plt Count 189 MPV 10.3 Immature Gran % (Auto) 0.6 H Neut % (Auto) 61.1 Lymph % (Auto) 27.9 Smith % (Auto) 7.7 Eos % (Auto) 2.1 Baso % (Auto) 0.6 Lymph # (Auto) 2.5 Smith # (Auto) 0.7 Eos # (Auto) 0.2 Baso # (Auto) 0.1 Abs Immat Gran (auto) 0.05 H Absolute Neuts (auto) 5.4 Absolute Nucleated RBC 0.000 Nucleated RBC % (auto) 0.0 Sodium 141 Potassium 4.1 Chloride 109 H Carbon Dioxide 24 Anion Gap 12 BUN 12 Creatinine 0.77 Estim Creat Clear Calc 119.2 Estimated GFR > 60 POC Glucose 173 H Fasting Glucose 117 H Calcium 8.2 L Imaging Radiologist's impression: Impressions Myocardial Perfusion Scan Nuc Med 12/15/20 11:53 Impression: 1. Myocardial perfusion imaging study shows no evidence of any ischemia or infarction. Likely normal perfusion. 2. Gated LVEF is 58% during stress and 66% during rest. 3. Transient ischemic dilatation not present. EKG component of the test reported separately. Progress Note: A&P Assessment and plan (1) Atrial fibrillation with rapid ventricular response: Status: Acute (2) Preoperative cardiovascular examination: Status: Acute Assessment and Plan: High sensitivity troponins are in the normal range. Overall, atrial fibrillation duration is quite short. He does have risk factors, but as the episode was quite short, no absolute need for anticoagulation. He clearly had symptoms at that time and denies any similar episodes in the past. This has also happened in the setting of abdominal pain. High sensitivity troponin was normal at 5.3. He has peripheral vascular disease and history of smoking. However, myocardial perfusion imaging does not show any significant abnormalities. May proceed with hernia surgery as planned. Low to intermediate cardiac risk. Fall Risk Details Current Medications: Current Medications Generic Name Dose Route Start Last Admin Trade Name Freq PRN Reason Stop Dose Admin Acetaminophen 650 mg 12/13/20 22:49 Acetaminophen 325 Mg Tablet PO Q6H PRN Pain, Mild (Pain Scale 1-3) Aspirin 81 mg 12/15/20 09:00 12/16/20 07:53 Aspirin Enteric Coated 81 Mg Tablet.Dr PO 81 mg DAILY JEAN-PIERRE Administration Diltiazem HCl 120 mg 12/14/20 11:45 12/16/20 07:52 Diltiazem Hcl Cd 120 Mg Cap.Er.Deg PO 120 mg DAILY JEAN-PIERRE Administration Protocol Hydralazine HCl 10 mg 12/14/20 09:00 12/16/20 07:52 Hydralazine Hcl 10 Mg Tablet PO 10 mg BID JEAN-PIERRE Administration Protocol Hydromorphone HCl 0.5 mg 12/14/20 06:07 12/16/20 13:42 Hydromorphone Hcl 0.5 Mg/0.5 Ml Syringe IVPUSH 0.5 mg Q6H PRN Administration Breakthrough Pain Insulin Human Lispro 0 unit 12/14/20 07:30 12/16/20 12:30 Insulin Lispro 100 Unit/Ml 3 Ml Vial SUBCUT 2 unit QIDACHS [facility] Administration Protocol Metoprolol Tartrate 5 mg 12/13/20 22:49 Metoprolol Tartrate 5 Mg/5 Ml Vial IVPUSH Q6H PRN HR>120 Non-Formulary Medication 750 mcg 12/14/20 13:30 Buprenorphine Hcl BUCCAL Q12H JEAN-PIERRE Oxycodone HCl 10 mg 12/15/20 09:01 12/16/20 12:29 Oxycodone Hcl Immed Release 5 Mg Tablet PO 10 mg Q4H PRN Administration Pain, Moderate (Pain Scale 4-6 Pramipexole Dihydrochloride 0.5 mg 12/15/20 05:00 12/16/20 05:36 Pramipexole Di-Hcl 0.25 Mg Tablet PO 0.5 mg BID@0500,1700 [facility] Administration Sodium Chloride 3 ml 12/14/20 00:00 12/16/20 07:59 0.9 % Sodium Chloride Flush 3 Ml Syringe IVFLUSH 3 ml QSHIFT [facility] Administration Time Spent With Patient Time: Total time spent is greater than 50% in coordination of care (as documented) at patient's floor/unit and/or counseling patient: Time with patient: less than 15 minutes
--- NOTE | 2020-12-16 15:28 | P.DS_ITS ---
DS: Providers Provider Date of Service: 12/16/20 Date of admission: 12/13/20 22:49 Primary care physician: Kris Ivory MD Consults: 12/13/20 22:54 Consult to Cardiology Routine Consulting Provider: Pascual Garcia Reason for consultation: new afib Consult to General Surgery Routine Consulting Provider: Ella Reardon Reason for consultation: abdominal pain DS: Diagnosis Discharge Diagnosis (1) Atrial fibrillation with rapid ventricular response: Status: Acute (2) Preoperative cardiovascular examination: Status: Acute (3) Incisional hernia: Status: Acute (4) New onset a-fib: Status: Acute DS: Medications Discharge Medications Home Medications: Home Medications Medication Instructions Recorded Confirmed buprenorphine HCl 750 mcg buccal 750 mcg BUCCAL Q12H 06/30/20 12/14/20 film pramipexole 0.5 mg tablet 0.5 mg PO BID 06/30/20 12/14/20 aspirin 81 mg tablet,delayed 81 mg PO DAILY 10/11/20 12/14/20 release blood sugar diagnostic #10 ea 10/11/20 10/15/20 cholecalciferol (vitamin D3) mcg PO DAILY 12/14/20 [Vitamin D3] Previous Rx's Medication Instructions Recorded hydralazine 10 mg tablet 10 mg PO BID #180 tab 08/10/20 metformin 500 mg tablet 1,000 mg PO BID #360 tab 08/10/20 empagliflozin 25 mg tablet 25 mg PO QAM #90 tab 11/30/20 diltiazem HCl [Cardizem CD] 120 mg PO DAILY #30 cap 12/16/20 oxycodone 10 mg PO Q4H PRN #20 tab 12/16/20 DS: Summary Hospital Course Hospital Course: patient was admitted for new onset afib and for LLQ abdominal pain determined to be due to incisional hernia. he converted to NSR, was seen by cardiology who felt that this was transient and did not require full anticoagulation, he was started on cardizem 120mg daily, echo was unremarkable. for his hernia pain, he was seen by surgery, who recommended surgical approach for symptom control. due to history of PVD, patient underwent stress test which was negative. patient's pain is now tolerable at rest, so will be discharged home to follow up next week for elective surgery. Time Spent with Patient Time attestation: Total time spent providing and/or coordinating discharge services: Discharge coordination time: Greater than 30 minutes Physical Exam Vital Signs: Vital Signs: Last Vital Signs Temp 97.8 F 12/16/20 11:52 Pulse 71 12/16/20 11:52 Resp 20 12/16/20 11:52 BP 148/90 H 12/16/20 11:52 Pulse Ox 95 12/16/20 11:52 Body Mass Index 32.3 General: AO X 3, no acute distress Resp: CTA bilateral CVS: S1,S2,RRR GI: soft, non tender, non distended Neuro: motor grossly intact Psych: appropriate affect DS: Data Data Completed and Pending Labs on day of discharge: Laboratory Results - last 24 hr 12/15/20 12/15/20 12/16/20 16:20 20:01 07:13 WBC RBC Hgb Hct MCV MCH MCHC RDW Plt Count MPV Immature Gran % (Auto) Neut % (Auto) Lymph % (Auto) [place] % (Auto) Eos % (Auto) Baso % (Auto) Lymph # (Auto) [place] # (Auto) Eos # (Auto) Baso # (Auto) Abs Immat Gran (auto) Absolute Neuts (auto) Absolute Nucleated RBC Nucleated RBC % (auto) Sodium Potassium Chloride Carbon Dioxide Anion Gap BUN Creatinine Estim Creat Clear Calc Estimated GFR POC Glucose 113 139 H 117 H Fasting Glucose Calcium 12/16/20 12/16/20 12/16/20 07:51 07:51 11:51 WBC 8.8 RBC 5.08 Hgb 14.9 Hct 45.7 MCV 90.0 MCH 29.3 MCHC 32.6 RDW 14.1 Plt Count 189 MPV 10.3 Immature Gran % (Auto) 0.6 H Neut % (Auto) 61.1 Lymph % (Auto) 27.9 [place] % (Auto) 7.7 Eos % (Auto) 2.1 Baso % (Auto) 0.6 Lymph # (Auto) 2.5 [place] # (Auto) 0.7 Eos # (Auto) 0.2 Baso # (Auto) 0.1 Abs Immat Gran (auto) 0.05 H Absolute Neuts (auto) 5.4 Absolute Nucleated RBC 0.000 Nucleated RBC % (auto) 0.0 Sodium 141 Potassium 4.1 Chloride 109 H Carbon Dioxide 24 Anion Gap 12 BUN 12 Creatinine 0.77 Estim Creat Clear Calc 119.2 Estimated GFR > 60 POC Glucose 173 H Fasting Glucose 117 H Calcium 8.2 L Discharge Plan Discharge Patient Disposition: Home, Self-Care Discharge Diagnosis: afib, hernia Referrals: Kris Ivory MD [Primary Care Provider] - 1 Week Discharge Medications: New diltiazem HCl [Cardizem CD] 120 mg Capsule,Extended Release 24hr 120 mg PO DAILY Qty: 30 RF: 0 oxycodone 5 mg Tablet 10 mg PO Q4H PRN (Reason: Pain, Moderate (Pain Scale 4-6) Qty: 20 RF: 0 Continued hydralazine 10 mg tablet 10 mg PO BID Qty: 180 RF: 1 metformin 500 mg tablet 1,000 mg PO BID Qty: 360 RF: 1 empagliflozin [Jardiance] 25 mg tablet 25 mg PO QAM Qty: 90 RF: 1 cholecalciferol (vitamin D3) [Vitamin D3] 25 mcg (1,000 unit) Capsule PO DAILY RF: 0 pramipexole 0.5 mg tablet 0.5 mg PO BID RF: 0 buprenorphine HCl 750 mcg film 750 mcg buccal Q12H RF: 0 (DME) blood sugar diagnostic Strip See Rx Instructions strip Not Applicable BID Qty: 10 RF: 0 aspirin [Adult Low Dose Aspirin] 81 mg tablet,delayed release (DR/EC) 81 mg PO DAILY RF: 0 Discharge Orders: Discharge Order (Routine); Ordered 12/16/20 Ordered By: Surinder Figueroa Diet: advance to usual diet Activity on Discharge: As tolerated Stand Alone Forms: Patient Portal Discharge page Care Plan Goals: manage pain Health Concerns: hernia, afib Plan of Treatment: start cardizem, follow up cardio, pain control, follow up with surgery Assessment: see above
--- NOTE | 2020-12-16 15:31 | MHC.CM.PN ---
pt dcd home no services pt has own transportation home
--- NOTE | 2020-12-16 15:48 | PM.PNGS ---
Subjective Subjective Date of Service: 12/16/20 Patient reports: feels better Interval history: His hernia site hurts when he moves his torso but otherwise is not painful Tolerating diet Does state that pain with movement has improved Physical Exam Vital Signs: Vital Signs: Last Vital Signs Temp 97.8 F 12/16/20 11:52 Pulse 71 12/16/20 11:52 Resp 20 12/16/20 11:52 BP 148/90 H 12/16/20 11:52 Pulse Ox 95 12/16/20 11:52 Body Mass Index 32.3 Const: Other: Sitting up on chair General: comfortable and no acute distress Resp: Effort & Inspection: normal respiratory effort Cardio: Rhythm: regular rhythm GI: Other: Unable to clearly define the hernia on the 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 I reviewed the risks including but not limited to bleeding, infections, bowel injury, recurrence, postop pain, As well as benefits alternatives He says he understands. He says he is comfortable with scheduling this as a same-day surgery next week I will call him early Saturday to tell him about date of surgery and time Fall Risk Details Current Medications: Current Medications Generic Name Dose Route Start Last Admin Trade Name Audi PRN Reason Stop Dose Admin Acetaminophen 650 mg 12/13/20 22:49 Acetaminophen 325 Mg Tablet PO Q6H PRN Pain, Mild (Pain Scale 1-3) Aspirin 81 mg 12/15/20 09:00 12/16/20 07:53 Aspirin Enteric Coated 81 Mg Tablet.Dr PO 81 mg DAILY JEAN-PIERRE Administration Diltiazem HCl 120 mg 12/14/20 11:45 12/16/20 07:52 Diltiazem Hcl Cd 120 Mg Cap.Er.Deg PO 120 mg DAILY JEAN-PIERRE Administration Protocol Hydralazine HCl 10 mg 12/14/20 09:00 12/16/20 07:52 Hydralazine Hcl 10 Mg Tablet PO 10 mg BID JEAN-PIERRE Administration Protocol Hydromorphone HCl 0.5 mg 12/14/20 06:07 12/16/20 13:42 Hydromorphone Hcl 0.5 Mg/0.5 Ml Syringe IVPUSH 0.5 mg Q6H PRN Administration Breakthrough Pain Insulin Human Lispro 0 unit 12/14/20 07:30 12/16/20 12:30 Insulin Lispro 100 Unit/Ml 3 Ml Vial SUBCUT 2 unit QIDACHS [facility] Administration Protocol Metoprolol Tartrate 5 mg 12/13/20 22:49 Metoprolol Tartrate 5 Mg/5 Ml Vial IVPUSH Q6H PRN HR>120 Non-Formulary Medication 750 mcg 12/14/20 13:30 Buprenorphine Hcl BUCCAL Q12H [facility] [place] Oxycodone HCl 10 mg 12/15/20 09:01 12/16/20 12:29 Oxycodone Hcl Immed Release 5 Mg Tablet PO 10 mg Q4H PRN Administration Pain, Moderate (Pain Scale 4-6 Pramipexole Dihydrochloride 0.5 mg 12/15/20 05:00 12/16/20 05:36 Pramipexole Di-Hcl 0.25 Mg Tablet PO 0.5 mg BID@0500,1700 [facility] [place] Administration Sodium Chloride 3 ml 12/14/20 00:00 12/16/20 07:59 0.9 % Sodium Chloride Flush 3 Ml Syringe IVFLUSH 3 ml QSHIFT [facility] [place] Administration Time Spent With Patient Time: Total time spent is greater than 50% in coordination of care (as documented) at patient's floor/unit and/or counseling patient: Time with patient: 15 - 24 minutes
[2020-12-16 16:28] LABS: Glucose, Whole Blood 124 mg/dL (60-115)
== END 2020-12-16 17:07 | disposition home or self-care (01) | DRG 309 ==
LOC: HO.ED 22:44 → HO.EDOVER 23:10 → HO.IMC 12-14 12:10
PROVIDERS: Nurse Practitioner Primary Care; Admitting Provider Hospitalist; Emergency Provider Emergency Medicine; PCP Internal Medicine; Visit Provider Internal Medicine
DX: I48.91 Unspecified atrial fibrillation (principal); F11.20 Opioid dependence, uncomplicated; I10 Essential (primary) hypertension; K43.2 Incisional hernia without obstruction or gangrene; F17.210 Nicotine dependence, cigarettes, uncomplicated; Z71.6 Tobacco abuse counseling; Z20.822 Contact with and (suspected) exposure to COVID-19; Z79.4 Long term (current) use of insulin; Z79.82 Long term (current) use of aspirin; Z79.899 Other long term (current) drug therapy
CPT/HCPCS: 36415; 71045; 74177; 78452; 80048; 80076; 82947; 83605; 83690; 83735; 84443; 84484; 85025; 85379; 87635; 93005; 93017; 93306; 96374; 96375; 99285; A9500; J0280; J1170; J2270; J2405; J2785; Q9967

== ENCOUNTER 2020-12-18 10:33 | Inpatient (IN) | payer OTHER, SELFPAY ==
[2020-12-18] VITALS (11 sets, daily range): BP systolic 101–131; BP diastolic 73–92; PULSE 63–172; RESP 11–18; TEMP 36.4–36.9; O2SAT 95–96; BMI 33.2; BMI 32.6
--- NOTE | ~2020-12-18 | XR_ITS ---
EXAMINATION: XR CHEST CLINICAL INFORMATION: Rapid heart rate. COMPARISON: Chest x-ray dated 12/13/2020. TECHNIQUE: AP portable upright view of the chest was obtained. FINDINGS: EKG leads overlie the chest. The cardiomediastinal silhouette is within normal limits in size. Lungs bilaterally are symmetrically expanded. There is slight peribronchial cuffing seen with reticular prominence in the left lung base. Findings are poorly assessed on portable film, but likely represent mild atelectasis. No focal consolidation, effusion or pneumothorax is seen. Mild convex left thoracic scoliosis and vertebral spondylosis seen. XR/XR chest 1V IMPRESSION: Mild peribronchial cuffing and probable atelectasis in left lung base.
--- NOTE | 2020-12-18 10:49 | ECG_ITS ---
Test Reason : RAPID HR Blood Pressure : / mmHG Vent. Rate : 164 BPM Atrial Rate : 357 BPM P-R Int : 000 ms QRS Dur : 090 ms QT Int : 256 ms P-R-T Axes : 000 063 200 degrees QTc Int : 422 ms Atrial fibrillation with rapid ventricular response ST & T wave abnormality, consider inferior ischemia Abnormal ECG When compared with ECG of 14-DEC-2020 09:38, Atrial fibrillation has replaced Sinus rhythm Vent. rate has increased BY 89 BPM Non-specific change in ST segment in Inferior leads ST now depressed in Lateral leads T wave inversion now evident in Inferior leads Nonspecific T wave abnormality, improved in Lateral leads Referred By: Generic ED Physician Electronically Signed By:Cam Malcolm
[2020-12-18] MEDS: 0.9 % Sodium Chloride 1,000 ML 999 ML IVCONT (11:07)
[2020-12-18] MEDS: dilTIAZem HCL 50 MG/10 ML VIAL 10 MG IVPUSH (11:08)
[2020-12-18 11:10] LABS: MANUAL DIFF FLAG NO
[2020-12-18] MEDS: dilTIAZem HCL 125 MG in 0.9 % Sodium Chloride 100 ML 10 MG IVCONT (11:12)
[2020-12-18 11:17] LABS: Basophils Absolute Auto 0.1 X10*3/uL (0.0-0.2); Basophils Percent Auto 0.7 % (0-2); Eosinophils Absolute Auto 0.2 X10*3/uL (0.0-0.4); Eosinophils Percent Auto 1.4 % (0-4); Hemoglobin 18.7 g/dl (14.0-18.0); Imm Gran Abs Auto 0.09 X10*3/uL (0.00-0.03); Imm Gran Pct Auto 0.6 % (0.0-0.4); Lymphocytes Absolute Auto 4.1 X10*3/uL (1.2-4.9); Lymphocytes Percent Auto 28.4 % (20-40); Mean Corpuscular HGB Conc 33.3 g/dl (31.0-36.0); Mean Corpuscular Hemoglobin 29.3 pg (27.0-33.0); Mean Corpuscular Volume 87.9 fL (80-98); Mean Platelet Volume 10.2 fL (9.4-12.4); Monocytes Absolute Auto 0.9 X10*3/uL (0.1-1.2); Monocytes Percent Auto 6.1 % (2-11); Neutrophils Absolute Auto 9.1 X10*3/uL (2.0-8.3); Neutrophils Percent Auto 62.8 % (45-73); Platelet Count 302 X10*3/uL (160-400); Red Blood Count 6.38 X10*6/uL (4.60-5.80); Red Cell Distribution Width 14.6 % (11.0-16.0); White Blood Count 14.5 X10*3/uL (4.8-10.8)
[2020-12-18 11:19] LABS: Hematocrit 56.1 % (42-52)
--- NOTE | 2020-12-18 11:19 | ED_ITS ---
HPI - Arrhythmia/Palpitations General Chief Complaint: Arrhythmia/Palpitations Stated Complaint: RAPID HEART RATE Time Seen by Provider: 12/18/20 10:46 Source: patient, family and old records reviewed Mode of arrival: ambulatory Limitations: no limitations History of Present Illness HPI narrative: 55 yo male with hx of new onset afib just left the hospital on Saturday taking 120mg diltiazem thought to be related to pain from a known L sided ventral hernia that is due for repair this week with Dr. Mckinley this AM he was drinking coffee upwards of 20 ounces went to stand up felt a sharp pull at his hernia site has these episodes frequently then developed pain in abdomen, nausea and palpitations, very simliar to his recent admission MD complaint: rapid heart beat and heart racing Onset (ago): minute(s) Duration: constant Severity: moderate Context: other (occured after standing and drinking coffee) Arrhythmia history: atrial fibrillation Associated symptoms: nausea and diaphoresis Treatments prior to arrival: calcium channel greyson Related Data Home Medications Medication Instructions Recorded Confirmed buprenorphine HCl 750 mcg buccal 750 mcg BUCCAL Q12H 06/30/20 12/14/20 film pramipexole 0.5 mg tablet 0.5 mg PO BID 06/30/20 12/14/20 aspirin 81 mg tablet,delayed 81 mg PO DAILY 10/11/20 12/14/20 release blood sugar diagnostic #10 ea 10/11/20 10/15/20 cholecalciferol (vitamin D3) mcg PO DAILY 12/14/20 [Vitamin D3] Previous Rx's Medication Instructions Recorded hydralazine 10 mg tablet 10 mg PO BID #180 tab 08/10/20 metformin 500 mg tablet 1,000 mg PO BID #360 tab 08/10/20 empagliflozin 25 mg tablet 25 mg PO QAM #90 tab 11/30/20 diltiazem HCl [Cardizem CD] 120 mg PO DAILY #30 cap 12/16/20 oxycodone 10 mg PO Q4H PRN #20 tab 12/16/20 Allergies Allergy/AdvReac Type Severity Reaction Status Date / Time No Known Allergies Allergy Verified 10/15/20 11:26 [No Known Allergies*] Review of Systems Review of Systems: Constitutional : No Fever, No Chills ENT/Mouth : No sore throat, No Rhinorrhea, No Swallowing Difficulty Eyes: No Eye Pain, No Swelling, No Redness Cardiovascular : No Chest Pain, positive SOB, No Orthopnea, no Edema Respiratory : No Cough, No Sputum, No Wheezing, positive dyspnea, pos palpitations Gastrointestinal : pos Nausea, No Vomiting, No Diarrhea, pos abdominal Pain, No Hematochezia, No Melena Genitourinary : No Dysuria, No Urinary Frequency, No Hematuria Musculoskeletal : No joint pain, No Myalgias Skin : No Skin Lesions, No rash Neuro : No Weakness, No Numbness, No Dizziness, No Headache Psych : No Anxiety/Panic, No Depression Heme/Lymph: No Bruising, No Lymphadenopathy Endocrine : No Polyuria, No Polydipsia All other systems reviewed and are negative [facility] Past Medical History Attestation statement: The following information was validated with the patient. Medical History (Updated 12/18/20 @ 12:44 by Richelle Arnold DO) Atrial fibrillation with rapid ventricular response Incisional hernia Type 2 diabetes mellitus without complications Vitamin D deficiency Surgical History History of dental surgery History of hernia repair Family History Family History Father No problems noted. Mother No problems noted. Brother No problems noted. Brother No problems noted. Brother No problems noted. Sister No problems noted. Social History Social History Household Members: Significant Other Housing: Apartment Alcohol intake: never Smoking Status: Current every day smoker Tobacco Type: Cigarette Packs Per Day: 1 Substance Use Type: Marijuana Advance Directives: No Advance Directives Information Provided: No service: No Current occupational status: disabled Physical Exam Vital Signs: Vital Signs: Last Vital Signs Temp 98.2 F 12/18/20 10:58 Pulse 117 H 12/18/20 12:39 Resp 15 12/18/20 12:39 BP 125/75 12/18/20 12:39 Pulse Ox 96 12/18/20 12:39 Body Mass Index 33.2 Appearance: Alert. Oriented X3. Anxious mild acute distress Eyes: Pupils equal, round and reactive to light. ENT: Pharynx normal. Neck: Normal inspection. Neck supple. CVS: Tachycardic and irregular. Pulses normal. Respiratory: No respiratory distress. Breath sounds normal. Abdomen: Soft and mild L sided pain with small defect noted no discoloration no rebound or guarding Skin: Skin warm and dry. Normal skin color. Normal skin turgor. Extremities: No lower extremity edema. No calf ttp Neuro: Oriented X 3. No motor deficit. No sensory deficit. Course Course Course Narrative: HR down to 110-120s on dilt gtt plan to admit at this time MDM - Arrhythmia/Palpitations MDM Narrative Medical decision making narrative: 55 yo male with with recent dx of afib on dilt 120mg not on AC therapy likely due to afib resolved and was brief in hospital as well as planned hernia repair this week comes in with afib started abruptly this AM will need labs, IV dilt, dilt gtt likely, he is compliant with medications but did drink up to 20 ounces of coffee this AM that is his possible source as he did not have coffee while admitted. Lab Data Result diagrams: 12/18/20 11:03 12/18/20 11:03 Labs: Lab Results 12/18/20 12/18/20 12/18/20 Range/Units 11:02 11:03 11:03 WBC 14.5 H (4.8-10.8) X10*3/uL RBC 6.38 H D (4.60-5.80) X10*6/uL Hgb 18.7 H D (14.0-18.0) g/dl Hct 56.1 H D (42-52) % MCV 87.9 (80-98) fL MCH 29.3 (27.0-33.0) pg MCHC 33.3 (31.0-36.0) g/dl RDW 14.6 (11.0-16.0) % Plt Count 302 D (160-400) X10*3/uL MPV 10.2 (9.4-12.4) fL Immature Gran % (Auto) 0.6 H (0.0-0.4) % Neut % (Auto) 62.8 (45-73) % Lymph % (Auto) 28.4 (20-40) % Nuckolls % (Auto) 6.1 (2-11) % Eos % (Auto) 1.4 (0-4) % Baso % (Auto) 0.7 (0-2) % Lymph # (Auto) 4.1 (1.2-4.9) X10*3/uL Nuckolls # (Auto) 0.9 (0.1-1.2) X10*3/uL Eos # (Auto) 0.2 (0.0-0.4) X10*3/uL Baso # (Auto) 0.1 (0.0-0.2) X10*3/uL Abs Immat Gran (auto) 0.09 H (0.00-0.03) X10*3/uL Absolute Neuts (auto) 9.1 H (2.0-8.3) X10*3/uL Absolute Nucleated RBC 0.000 (0.0-0.012) X10*3/uL Nucleated RBC % (auto) 0.0 (0.0-0.2) /100WBC PT 11.1 (10.8-13.0) SEC INR 0.9 (0.9-1.1) APTT 43.7 H (24.1-38.0) SEC Sodium (135-145) mmol/L Potassium (3.3-5.1) mmol/L Chloride (96-108) mmol/L Carbon Dioxide (22-29) mmol/L Anion Gap (12-20) BUN (9-16) mg/dL Creatinine (0.5-1.4) mg/dL Estim Creat Clear Calc Estimated GFR Random Glucose (60-115) mg/dL Calcium (8.4-10.2) mg/dL Magnesium (1.6-2.6) mg/dL Total Bilirubin (0.0-1.0) mg/dL AST (5-37) U/L ALT (0-40) U/L Alkaline Phosphatase (39-117) U/L Troponin I High Sens 4.9 (<3.5-35.0) ng/L B-Natriuretic Peptide 17 (<100) pg/mL Total Protein (6.5-8.0) g/dL Albumin (3.5-5.0) g/dL / Range/Units 11:03 WBC (4.8-10.8) X10*3/uL RBC (4.60-5.80) X10*6/uL Hgb (14.0-18.0) g/dl Hct (42-52) % MCV (80-98) fL MCH (27.0-33.0) pg MCHC (31.0-36.0) g/dl RDW (11.0-16.0) % Plt Count (160-400) X10*3/uL MPV (9.4-12.4) fL Immature Gran % (Auto) (0.0-0.4) % Neut % (Auto) (45-73) % Lymph % (Auto) (20-40) % Nuckolls % (Auto) (2-11) % Eos % (Auto) (0-4) % Baso % (Auto) (0-2) % Lymph # (Auto) (1.2-4.9) X10*3/uL [place]olls # (Auto) (0.1-1.2) X10*3/uL Eos # (Auto) (0.0-0.4) X10*3/uL Baso # (Auto) (0.0-0.2) X10*3/uL Abs Immat Gran (auto) (0.00-0.03) X10*3/uL Absolute Neuts (auto) (2.0-8.3) X10*3/uL Absolute Nucleated RBC (0.0-0.012) X10*3/uL Nucleated RBC % (auto) (0.0-0.2) /100WBC PT (10.8-13.0) SEC INR (0.9-1.1) APTT (24.1-38.0) SEC Sodium 141 (135-145) mmol/L Potassium 4.2 (3.3-5.1) mmol/L Chloride 102 (96-108) mmol/L Carbon Dioxide 22 (22-29) mmol/L Anion Gap 21 H (12-20) BUN 16 (9-16) mg/dL Creatinine 0.95 (0.5-1.4) mg/dL Estim Creat Clear Calc 97.8 Estimated GFR > 60 Random Glucose 203 H D (60-115) mg/dL Calcium 11.0 H D (8.4-10.2) mg/dL Magnesium 2.2 (1.6-2.6) mg/dL Total Bilirubin 0.5 (0.0-1.0) mg/dL AST 24 (5-37) U/L ALT 22 (0-40) U/L Alkaline Phosphatase 65 (39-117) U/L Troponin I High Sens (<3.5-35.0) ng/L B-Natriuretic Peptide (<100) pg/mL Total Protein 7.7 (6.5-8.0) g/dL Albumin 4.8 (3.5-5.0) g/dL ECG Data Attestation: I personally reviewed and interpreted this ECG as follows: ECG interpretation date: 12/18/20 ECG interpretation time: 11:26 Interpretation: Rate: 160s Rhythm: narrow afib with RVR [place]: normal Normal P waves. Normal [place]. Normal QRS complex. ST T wave : nonspecific no DARRICK qTC: normal prior studies: changed from prior The study has been interpreted contemporaneously by me. . Discharge Plan Discharge Clinical Impression: Atrial fibrillation Patient Disposition: Admitted As Inpatient Prescriptions: No Action hydralazine 10 mg tablet 10 mg PO BID Qty: 180 RF: 1 metformin 500 mg tablet 1,000 mg PO BID Qty: 360 RF: 1 empagliflozin [Jardiance] 25 mg tablet 25 mg PO QAM Qty: 90 RF: 1 cholecalciferol (vitamin D3) [Vitamin D3] 25 mcg (1,000 unit) Capsule PO DAILY RF: 0 diltiazem HCl [Cardizem CD] 120 mg Capsule,Extended Release 24hr 120 mg PO DAILY Qty: 30 RF: 0 oxycodone 5 mg Tablet 10 mg PO Q4H PRN (Reason: Pain, Moderate (Pain Scale 4-6) Qty: 20 RF: 0 pramipexole 0.5 mg tablet 0.5 mg PO BID RF: 0 buprenorphine HCl 750 mcg film 750 mcg buccal Q12H RF: 0 (DME) blood sugar diagnostic Strip See Rx Instructions strip Not Applicable BID Qty: 10 RF: 0 aspirin [Adult Low Dose Aspirin] 81 mg tablet,delayed release (DR/EC) 81 mg PO DAILY RF: 0
[2020-12-18 11:23] LABS: INTERNATIONAL NORM RATIO 0.9 (0.9-1.1); Prothrombin Time 11.1 SEC (10.8-13.0)
[2020-12-18 11:37] LABS: Partial Thromboplastin Time 43.7 SEC (24.1-38.0)
[2020-12-18 11:39] LABS: Alanine Aminotransferase 22 U/L (0-40); Albumin Level 4.8 g/dL (3.5-5.0); Alkaline Phosphatase 65 U/L (39-117); Anion Gap 21 (12-20); Aspartate Amino Transferase 24 U/L (5-37); Bilirubin Total 0.5 mg/dL (0.0-1.0); Blood Urea Nitrogen 16 mg/dL (9-16); Carbon Dioxide 22 mmol/L (22-29); Chloride 102 mmol/L (96-108); Creatinine Clr Calc Pharmacy 97.8; Estimated Glomerular Filt Rate > 60; Glucose Random 203 mg/dL (60-115); Magnesium 2.2 mg/dL (1.6-2.6); Potassium 4.2 mmol/L (3.3-5.1); Sodium 141 mmol/L (135-145); Total Protein 7.7 g/dL (6.5-8.0)
[2020-12-18 11:46] LABS: B Type Natriuretic Peptide 17 pg/mL (<100); Troponin-I High Sensitivity 4.9 ng/L (<3.5-35.0)
--- NOTE | 2020-12-18 12:49 | P.HPHOSP_ITS ---
History of Present Illness Date of Service: 12/18/20 Chief Complaint: llq pain 55M presented with llq pain. patient was recently discharged 12/16/20 after admission for LLQ pain from ventral hernia complicated by transient episode of afib. on that admission he underwent stress test that was unremarkable. he was started on cardizem 120mg daily to prevent further afib and decision was made to forgo anticoagulation as it seemed like an isolated event. he was seen by surgery who recommended surgical repair to help with his pain and plan was to repair this week electively. patient had been doing okay with pain meds at home, on day of admission patient had 20oz of coffee and in ED was noted again to be in afib with RVR in 140s-160s. he denied chest pain or palpitations, his LLQ is manageable as long as hes not moving, but once he moves he is in significant pain. labs significant for signs of hemoconcentration, otherwise unremarkable. patient was given iv fluids, pain meds, and started on cardizem infusion. Review of Systems Review of Systems: Constitutional: Denies fever, denies Chills Eyes: denies blurry vision ENT: denies sore throat CVS: denies chest pain Respiratory: Denies dyspnea GI: llq abdominal pain : denies dysuria MSK: denies neck pain Skin: denies rash Neuro: denies specific motor weakness Psych: denies suicidal ideation Endocrine: denies heat/cold intoleratnce Hematologic: denies easy bleeding Allergy: denies hives [facility] Medical History Atrial fibrillation with rapid ventricular response Incisional hernia Type 2 diabetes mellitus without complications Vitamin D deficiency Family History Father No problems noted. Mother No problems noted. Brother No problems noted. Brother No problems noted. Brother No problems noted. Sister No problems noted. Surgical History History of dental surgery History of hernia repair Social History Household Members: Significant Other Housing: Apartment Alcohol intake: never Smoking Status: Current every day smoker Tobacco Type: Cigarette Packs Per Day: 1 Substance Use Type: Marijuana Advance Directives: No Advance Directives Information Provided: No service: No Current occupational status: disabled Meds Allergies Allergy/AdvReac Type Severity Reaction Status Date / Time No Known Allergies Allergy Verified 10/15/20 11:26 [No Known Allergies*] Active Medications: Current Medications Generic Name Dose Route Start Last Admin Trade Name Freantione PRN Reason Stop Dose Admin Diltiazem HCl 125 mg/ Sodium 125 mls @ 0 mls/hr 12/18/20 11:00 12/18/20 11:12 Chloride IVCONT 10 mg/hr .Q0M JEAN-PIERRE 10 mls/hr Administration Protocol Per Protocol Pharmacy Consult 1 each 12/18/20 12:43 Consult Rx Perform Med Rec MISCELLANE ONCE PRN Consult order Home Medications Medication Instructions Recorded Confirmed Last Taken Type buprenorphine HCl 750 mcg buccal 750 mcg BUCCAL Q12H 06/30/20 12/14/20 Unknown History film pramipexole 0.5 mg tablet 0.5 mg PO BID 06/30/20 12/14/20 Unknown History aspirin 81 mg tablet,delayed 81 mg PO DAILY 10/11/20 12/14/20 Unknown History release blood sugar diagnostic #10 ea 10/11/20 10/15/20 Unknown History cholecalciferol (vitamin D3) mcg PO DAILY 12/14/20 Unknown History [Vitamin D3] Physical Exam Vital Signs and Narrative: Vital Signs: Last Vital Signs Temp 98.2 F 12/18/20 10:58 Pulse 117 H 12/18/20 12:39 Resp 15 12/18/20 12:39 BP 125/75 12/18/20 12:39 Pulse Ox 96 12/18/20 12:39 Body Mass Index 33.2 General: pain on movement HEENT: atraumatic Neck: normal to visual inspection CVS: S1, S2, irregular rapid Resp: CTA bilateral Chest: non tender GI: soft, non tender, non distended : no CVA tenderness Skin: no rashes Extremities: no edema Neuro: Oriented X3, grossly intact Psych: cooperative Results Labs CBC and Chem 7: 12/18/20 11:03 12/18/20 11:03 Labs: Laboratory Results - last 24 hr 12/18/20 12/18/20 12/18/20 11:02 11:03 11:03 MCV 87.9 MCH 29.3 MCHC 33.3 RDW 14.6 Plt Count 302 D MPV 10.2 Immature Gran % (Auto) 0.6 H Neut % (Auto) 62.8 Lymph % (Auto) 28.4 Nelson % (Auto) 6.1 Eos % (Auto) 1.4 Baso % (Auto) 0.7 Lymph # (Auto) 4.1 Nelson # (Auto) 0.9 Eos # (Auto) 0.2 Baso # (Auto) 0.1 Abs Immat Gran (auto) 0.09 H Absolute Neuts (auto) 9.1 H Absolute Nucleated RBC 0.000 Nucleated RBC % (auto) 0.0 PT 11.1 INR 0.9 APTT 43.7 H Anion Gap Estim Creat Clear Calc Estimated GFR Random Glucose Calcium Magnesium Total Bilirubin AST ALT Alkaline Phosphatase Troponin I High Sens 4.9 B-Natriuretic Peptide 17 Total Protein Albumin 12/18/20 11:03 MCV MCH MCHC RDW Plt Count MPV Immature Gran % (Auto) Neut % (Auto) Lymph % (Auto) Nelson % (Auto) Eos % (Auto) Baso % (Auto) Lymph # (Auto) Nelson # (Auto) Eos # (Auto) Baso # (Auto) Abs Immat Gran (auto) Absolute Neuts (auto) Absolute Nucleated RBC Nucleated RBC % (auto) PT INR APTT Anion Gap 21 H Estim Creat Clear Calc 97.8 Estimated GFR > 60 Random Glucose 203 H D Calcium 11.0 H D Magnesium 2.2 Total Bilirubin 0.5 AST 24 ALT 22 Alkaline Phosphatase 65 Troponin I High Sens B-Natriuretic Peptide Total Protein 7.7 Albumin 4.8 Imaging Radiologist's Impressions: Impressions Chest X-Ray 12/18/20 11:20 IMPRESSION: Mild peribronchial cuffing and probable atelectasis in left lung base. Assessment and Plan (1) Atrial fibrillation: Qualifiers: Atrial fibrillation type: paroxysmal Qualified Code(s): I48.0 - Paroxysmal atrial fibrillation Status: Acute 55M presented with abdominal pain from known LLQ ventral hernia, and afib with rvr afib with rvr cardizem infusion will start IV heparin (in case surgery for hernia in near future) cardio eval avoid caffeine dehydration IVF, monitor labs ventral hernia pain control surgery eval DM hold orals insulin HTN cardizem hydralazine
[2020-12-18 13:17] LABS: COVID-19 Test Negative (Negative)
[2020-12-18 13:36] LABS: Hematocrit 51.1 % (42-52); Hemoglobin 16.9 g/dl (14.0-18.0); Mean Corpuscular HGB Conc 33.1 g/dl (31.0-36.0); Mean Corpuscular Hemoglobin 29.3 pg (27.0-33.0); Mean Corpuscular Volume 88.6 fL (80-98); Mean Platelet Volume 9.9 fL (9.4-12.4); Platelet Count 282 X10*3/uL (160-400); Red Blood Count 5.77 X10*6/uL (4.60-5.80); Red Cell Distribution Width 14.4 % (11.0-16.0); White Blood Count 14.2 X10*3/uL (4.8-10.8)
[2020-12-18] MEDS: HYDROmorphone HCl 0.5 MG/0.5 ML SYRINGE IVPUSH ×2 (13:40→16:13)
[2020-12-18 13:42] LABS: Prothrombin Time 11.8 SEC (10.8-13.0)
[2020-12-18 13:44] LABS: PTT Heparin Drip 42.8 SEC (53-77.9)
[2020-12-18] MEDS: 0.9 % Sodium Chloride 1,000 ML 100 ML IVCONT ×2 (16:15→23:47)
[2020-12-18] MEDS: 0.9 % Sodium Chloride Flush 3 ML SYRINGE IVFLUSH ×2 (16:22→20:52)
[2020-12-18] MEDS: Heparin Sodium,Porcine/1/2NS 25,000 UNIT/250 ML IV.SOLN 13.86 UNIT IVCONT (16:23)
[2020-12-18 17:10] LABS: Glucose, Whole Blood 118 mg/dL (60-115)
[2020-12-18] MEDS: Pramipexole Di-HCL 0.25 MG TABLET 0.5 MG PO (17:18)
[2020-12-18] MEDS: HYDROmorphone HCl 0.5 MG/0.5 ML SYRINGE 1 MG IVPUSH ×2 (18:50→23:47)
[2020-12-18 20:40] LABS: Glucose, Whole Blood 140 mg/dL (60-115)
[2020-12-18] MEDS: hydrALAZINE HCl 10 MG TABLET PO (20:51)
[2020-12-18 23:01] LABS: PTT Heparin Drip 69.6 SEC (53-77.9)
[2020-12-19] VITALS (8 sets, daily range): BP systolic 98–152; BP diastolic 74–95; PULSE 65–79; RESP 18–20; TEMP 36.2–36.8; O2SAT 95–98
[2020-12-19] MEDS: HYDROmorphone HCl 0.5 MG/0.5 ML SYRINGE 1 MG IVPUSH ×6 (03:55→20:26)
[2020-12-19 04:46] LABS: Basophils Absolute Auto 0.1 X10*3/uL (0.0-0.2); Basophils Percent Auto 0.8 % (0-2); Eosinophils Absolute Auto 0.4 X10*3/uL (0.0-0.4); Eosinophils Percent Auto 3.1 % (0-4); Hematocrit 46.7 % (42-52); Hemoglobin 15.3 g/dl (14.0-18.0); Imm Gran Abs Auto 0.08 X10*3/uL (0.00-0.03); Imm Gran Pct Auto 0.7 % (0.0-0.4); Lymphocytes Absolute Auto 5.2 X10*3/uL (1.2-4.9); Lymphocytes Percent Auto 43.9 % (20-40); MANUAL DIFF FLAG SCAN; Mean Corpuscular HGB Conc 32.8 g/dl (31.0-36.0); Mean Corpuscular Hemoglobin 29.1 pg (27.0-33.0); Mean Platelet Volume 9.9 fL (9.4-12.4); Monocytes Absolute Auto 0.9 X10*3/uL (0.1-1.2); Monocytes Percent Auto 7.6 % (2-11); Neutrophils Absolute Auto 5.2 X10*3/uL (2.0-8.3); Neutrophils Percent Auto 43.9 % (45-73); Platelet Count 214 X10*3/uL (160-400); Red Blood Count 5.25 X10*6/uL (4.60-5.80); Red Cell Distribution Width 14.6 % (11.0-16.0); SCAN SMEAR FLAG 1; White Blood Count 11.8 X10*3/uL (4.8-10.8)
[2020-12-19 04:59] LABS: INTERNATIONAL NORM RATIO 1.1 (0.9-1.1); Prothrombin Time 12.9 SEC (10.8-13.0)
[2020-12-19 05:01] LABS: PTT Heparin Drip 57.5 SEC (53-77.9)
[2020-12-19 05:23] LABS: Anion Gap 14 (12-20); Blood Urea Nitrogen 17 mg/dL (9-16); Calcium 8.8 mg/dL (8.4-10.2); Carbon Dioxide 23 mmol/L (22-29); Chloride 107 mmol/L (96-108); Creatinine Clr Calc Pharmacy 121.3; Estimated Glomerular Filt Rate > 60; Glucose Random 105 mg/dL (60-115); Sodium 140 mmol/L (135-145)
[2020-12-19 07:37] LABS: Glucose, Whole Blood 110 mg/dL (60-115)
[2020-12-19] MEDS: hydrALAZINE HCl 10 MG TABLET PO ×2 (08:06→20:24)
[2020-12-19] MEDS: Pramipexole Di-HCL 0.25 MG TABLET 0.5 MG PO ×2 (08:06→16:31)
[2020-12-19] MEDS: 0.9 % Sodium Chloride 1,000 ML 100 ML IVCONT (09:48)
[2020-12-19] MEDS: Heparin Sodium,Porcine/1/2NS 25,000 UNIT/250 ML IV.SOLN 13.86 UNIT IVCONT (10:02)
[2020-12-19 10:21] LABS: SLIDE REVIEW VERIFIED
[2020-12-19 11:21] LABS: Glucose, Whole Blood 113 mg/dL (60-115)
--- NOTE | 2020-12-19 12:15 | P.PNIM_ITS ---
Subjective Subjective Date of Service: 12/19/20 Interval History: llq pain Cardiovascular Cardiovascular: Reports no additional cardiovascular complaints Respiratory Respiratory: Reports no additional respiratory complaints Physical Exam Vital Signs: Vital Signs: Last Vital Signs Temp 97.2 F 12/19/20 11:26 Pulse 74 12/19/20 11:26 Resp 20 12/19/20 11:26 BP 145/86 H 12/19/20 11:26 Pulse Ox 95 12/19/20 11:26 Body Mass Index 32.6 General: AO X 3, no acute distress Resp: CTA bilateral CVS: S1,S2,RRR GI: soft, non tender, non distended Neuro: motor grossly intact Psych: appropriate affect Objective Data Current Medications Generic Name Dose Route Start Last Admin Trade Name Freq PRN Reason Stop Dose Admin Acetaminophen 650 mg 12/18/20 13:17 Acetaminophen 325 Mg Tablet PO Q6H PRN Pain, Mild (Pain Scale 1-3) Heparin Sodium (Porcine) 4,000 unit 12/18/20 13:17 Heparin Sodium,Porcine 5,000 Unit/Ml Vial 40 unit/kg (4000 unit) IVPUSH BOLUS PRN 40 unit/kg - Heparin Protocol Heparin Sodium (Porcine) 7,900 unit 12/18/20 13:17 Heparin Sodium,Porcine 5,000 Unit/Ml Vial 80 unit/kg (7900 unit) IVPUSH BOLUS PRN 80 unit/kg - Heparin Protocol Hydralazine HCl 10 mg 12/18/20 21:00 12/19/20 08:06 Hydralazine Hcl 10 Mg Tablet PO 10 mg BID JEAN-PIERRE Administration Protocol Hydromorphone HCl 1 mg 12/19/20 10:50 12/19/20 11:21 Hydromorphone Hcl 0.5 Mg/0.5 Ml Syringe IVPUSH 1 mg Q2H PRN Administration Pain, Severe (Pain Scale 7-10) Sodium Chloride 1,000 mls @ 100 mls/hr 12/18/20 13:17 12/19/20 09:48 Ns IVCONT 100 mls/hr .Q10H JEAN-PIERRE Administration Heparin Sodium/Sodium Chloride 25,000 unit in 250 mls @ 0 mls/hr 12/18/20 13:17 12/19/20 10:02 IVCONT 14 units/kg/hr .Q0M JEAN-PIERRE 13.86 mls/hr Administration Protocol Per Protocol Insulin Human Lispro 0 unit 12/18/20 16:30 12/19/20 11:25 Insulin Lispro 100 Unit/Ml 3 Ml Vial SUBCUT Not Given QIDACHS [facility] Protocol Pramipexole Dihydrochloride 0.5 mg 12/18/20 17:00 12/19/20 08:06 Pramipexole Di-Hcl 0.25 Mg Tablet PO 0.5 mg BID@0900,1700 [facility] Administration Sodium Chloride 3 ml 12/18/20 16:00 12/19/20 07:43 0.9 % Sodium Chloride Flush 3 Ml Syringe IVFLUSH Not Given QSHIFT [facility] Labs CBC & Chem 7: 12/19/20 04:29 12/19/20 04:29 Assessment and Plan (1) Atrial fibrillation: Status: Acute Assessment and Plan: 55M presented with abdominal pain from known LLQ ventral hernia, and afib with rvr afib with rvr converted to NSR on cardizem infusion, now dced, conitnue oral cardizem 120mg daily started IV heparin (in case surgery for hernia in near future, was scheduled for tomorrow) cardio eval avoid caffeine dehydration improved with hydration ventral hernia pain control surgery eval DM hold orals insulin HTN cardizem hydralazine
--- NOTE | 2020-12-19 12:33 | P.CONCA_ITS ---
History of Present Illness History of Present Illness Date of Service: 12/19/20 Requesting physician: Surinder Figueroa Chief complaint: AFIB RVR Narrative: Pleasant 55 gentleman who was recently seen by my partner Dr. Garcia on 12/14/2020. He was admitted with abdominal pain AFib with RVR which was short lived and broke on its own. He was diagnosed with a spigelian fat containing hernia. After discussion the patient left for home as he was planning to undergo surgery as outpatient. He got readmitted now with the left lower abdominal pain. He said he felt some palpitations. EKG showed AFib with RVR at 164 beats per minute with some inferolateral ST depressions. He had a Lexiscan done on 12/15/2020 which was normal. He had no chest pain or shortness of breath. He has history of diabetes and peripheral vascular disease. He is having a lot of pain in the left lower abdominal. Review of Systems Review of Systems: Abdominal pain Yes all other systems are reviewed and are negative [facility] Past Medical History Medical History Atrial fibrillation with rapid ventricular response Incisional hernia Type 2 diabetes mellitus without complications Vitamin D deficiency Family History Family History Father No problems noted. Mother No problems noted. Brother No problems noted. Brother No problems noted. Brother No problems noted. Sister No problems noted. Surgical History Surgical History History of dental surgery History of hernia repair Social History Social History Household Members: Significant Other Housing: Apartment Do you presently have visiting nurse or other home services: No Alcohol intake: unknown Smoking Status: Current every day smoker Tobacco Type: Cigarette Packs Per Day: 1 Cigarettes Per Day: 20.0 Years Smoked: 45 years Smoked in Last 30 Days: Yes Patient Interested in Nicotine Replacement: Yes Patient Given Instructions on How to Stop Smoking: Yes Date Education Initiated: 12/18/20 Second Hand Smoke Exposure: Yes Use of substances other than those prescribed or required for medical reasons: No Substance Use Type: Marijuana Currently Displaying Signs/Symptoms of Drug Intoxication Withdrawal: No Have you been hit, kicked, punched, or otherwise hurt by someone within the past year? If so, by whom?: No Do you feel safe in your current relationship?: Yes Is there a partner from a previous relationship who is making you feel unsafe now?: No Are you made to feel afraid or neglected: No Advance Directives: No Advance Directives Information Provided: No Do you have thoughts of harming others: None Do you have a plan to hurt others: No Plan Recently lost weight without trying: No service: No Current occupational status: disabled Meds Allergies Allergy/AdvReac Type Severity Reaction Status Date / Time No Known Allergies Allergy Verified 10/15/20 11:26 [No Known Allergies*] Active Medications: Current Medications Generic Name Dose Route Start Last Admin Trade Name Freq PRN Reason Stop Dose Admin Acetaminophen 650 mg 12/18/20 13:17 Acetaminophen 325 Mg Tablet PO Q6H PRN Pain, Mild (Pain Scale 1-3) Heparin Sodium (Porcine) 4,000 unit 12/18/20 13:17 Heparin Sodium,Porcine 5,000 Unit/Ml Vial 40 unit/kg (4000 unit) IVPUSH BOLUS PRN 40 unit/kg - Heparin Protocol Heparin Sodium (Porcine) 7,900 unit 12/18/20 13:17 Heparin Sodium,Porcine 5,000 Unit/Ml Vial 80 unit/kg (7900 unit) IVPUSH BOLUS PRN 80 unit/kg - Heparin Protocol Hydralazine HCl 10 mg 12/18/20 21:00 12/19/20 08:06 Hydralazine Hcl 10 Mg Tablet PO 10 mg BID JEAN-PIERRE Administration Protocol Hydromorphone HCl 1 mg 12/19/20 10:50 12/19/20 11:21 Hydromorphone Hcl 0.5 Mg/0.5 Ml Syringe IVPUSH 1 mg Q2H PRN Administration Pain, Severe (Pain Scale 7-10) Heparin Sodium/Sodium Chloride 25,000 unit in 250 mls @ 0 mls/hr 12/18/20 13:17 12/19/20 10:02 IVCONT 14 units/kg/hr .Q0M JEAN-PIERRE 13.86 mls/hr Administration Protocol Per Protocol Insulin Human Lispro 0 unit 12/18/20 16:30 12/19/20 11:25 Insulin Lispro 100 Unit/Ml 3 Ml Vial SUBCUT Not Given QIDACHS [facility] Protocol Pramipexole Dihydrochloride 0.5 mg 12/18/20 17:00 12/19/20 08:06 Pramipexole Di-Hcl 0.25 Mg Tablet PO 0.5 mg BID@0900,1700 [facility] Administration Sodium Chloride 3 ml 12/18/20 16:00 12/19/20 07:43 0.9 % Sodium Chloride Flush 3 Ml Syringe IVFLUSH Not Given QSHIFT [facility] Home Medications Medication Instructions Recorded Confirmed Last Taken Type pramipexole 0.5 mg tablet 0.5 mg PO BID 06/30/20 12/18/20 Unknown History aspirin 81 mg tablet,delayed 81 mg PO DAILY 10/11/20 12/18/20 12/18/20 History release blood sugar diagnostic #10 ea 10/11/20 10/15/20 Unknown History cholecalciferol (vitamin D3) 1,000 unit PO DAILY 12/14/20 12/18/20 12/18/20 History [Vitamin D3] Physical Exam Vital Signs: Vital Signs: Last Vital Signs Temp 97.2 F 12/19/20 11:26 Pulse 74 12/19/20 11:26 Resp 20 12/19/20 11:26 BP 145/86 H 12/19/20 11:26 Pulse Ox 95 12/19/20 11:26 Body Mass Index 32.6 GENERAL APPEARANCE: in no acute distress, well developed, well nourished. HEENT: unremarkable. HEAD: normocephalic, atraumatic. NECK/THYROID: no carotid bruit, no jugular venous distention. SKIN: no suspicious lesions, warm and dry. HEART: no murmurs, regular rate and rhythm, S1, S2 normal. LUNGS: clear to auscultation bilaterally. ABDOMEN: Soft, left lower abdominal tenderness. EXTREMITIES: no clubbing, cyanosis, or edema. PERIPHERAL PULSES: equal. NEUROLOGIC: nonfocal, alert and oriented. PSYCH: mood/affect full range. Results Labs and Meds Result diagrams: 12/19/20 04:29 12/19/20 04:29 Lab results: Laboratory Results - last 24 hr 12/18/20 12/18/20 12/18/20 12:56 13:32 13:32 WBC 14.2 H RBC 5.77 Hgb 16.9 Hct 51.1 MCV 88.6 MCH 29.3 MCHC 33.1 RDW 14.4 Plt Count 282 MPV 9.9 Immature Gran % (Auto) Neut % (Auto) Lymph % (Auto) Hendry % (Auto) Eos % (Auto) Baso % (Auto) Lymph # (Auto) Hendry # (Auto) Eos # (Auto) Baso # (Auto) Abs Immat Gran (auto) Absolute Neuts (auto) Absolute Nucleated RBC 0.000 Nucleated RBC % (auto) 0.0 Smear Tech's Comments PT 11.8 INR 1.0 PTT (Heparin Protocol) 42.8 L Sodium Potassium Chloride Carbon Dioxide Anion Gap BUN Creatinine Estim Creat Clear Calc Estimated GFR POC Glucose Random Glucose Calcium Magnesium COVID-19 ([facility]) Negative COVID-19 Clin Com See Note 12/18/20 12/18/20 12/18/20 17:06 20:35 22:34 WBC RBC Hgb Hct MCV MCH MCHC RDW Plt Count MPV Immature Gran % (Auto) Neut % (Auto) Lymph % (Auto) Hendry % (Auto) Eos % (Auto) Baso % (Auto) Lymph # (Auto) Hendry # (Auto) Eos # (Auto) Baso # (Auto) Abs Immat Gran (auto) Absolute Neuts (auto) Absolute Nucleated RBC Nucleated RBC % (auto) Smear Tech's Comments PT INR PTT (Heparin Protocol) 69.6 D Sodium Potassium Chloride Carbon Dioxide Anion Gap BUN Creatinine Estim Creat Clear Calc Estimated GFR POC Glucose 118 H 140 H Random Glucose Calcium Magnesium COVID-19 ([place]) COVID[employer] 12/19/20 12/19/20 12/19/20 04:29 04:29 04:29 WBC 11.8 H RBC 5.25 Hgb 15.3 Hct 46.7 MCV 89.0 MCH 29.1 MCHC 32.8 RDW 14.6 Plt Count 214 MPV 9.9 Immature Gran % (Auto) 0.7 H Neut % (Auto) 43.9 L Lymph % (Auto) 43.9 H Hendry % (Auto) 7.6 Eos % (Auto) 3.1 Baso % (Auto) 0.8 Lymph # (Auto) 5.2 H Hendry # (Auto) 0.9 Eos # (Auto) 0.4 Baso # (Auto) 0.1 Abs Immat Gran (auto) 0.08 H Absolute Neuts (auto) 5.2 Absolute Nucleated RBC 0.000 Nucleated RBC % (auto) 0.0 Smear Tech's Comments VERIFIED PT INR PTT (Heparin Protocol) 57.5 Sodium Potassium Chloride Carbon Dioxide Anion Gap BUN Creatinine Estim Creat Clear Calc Estimated GFR POC Glucose Random Glucose Calcium Magnesium 2.0 COVID-19 ([place]) COVID-[employer] 12/19/20 12/19/20 12/19/20 04:29 04:29 07:34 WBC RBC Hgb Hct MCV MCH MCHC RDW Plt Count MPV Immature Gran % (Auto) Neut % (Auto) Lymph % (Auto) Hendry % (Auto) Eos % (Auto) Baso % (Auto) Lymph # (Auto) Hendry # (Auto) Eos # (Auto) Baso # (Auto) Abs Immat Gran (auto) Absolute Neuts (auto) Absolute Nucleated RBC Nucleated RBC % (auto) Smear Tech's Comments PT 12.9 INR 1.1 PTT (Heparin Protocol) Sodium 140 Potassium 4.0 Chloride 107 Carbon Dioxide 23 Anion Gap 14 BUN 17 H Creatinine 0.76 Estim Creat Clear Calc 121.3 Estimated GFR > 60 POC Glucose 110 Random Glucose 105 D Calcium 8.8 D Magnesium COVID-19 ([place]) [employer] 12/19/20 11:17 WBC RBC Hgb Hct MCV MCH MCHC RDW Plt Count MPV Immature Gran % (Auto) Neut % (Auto) Lymph % (Auto) Hendry % (Auto) Eos % (Auto) Baso % (Auto) Lymph # (Auto) Hendry # (Auto) Eos # (Auto) Baso # (Auto) Abs Immat Gran (auto) Absolute Neuts (auto) Absolute Nucleated RBC Nucleated RBC % (auto) Smear Tech's Comments PT INR PTT (Heparin Protocol) Sodium Potassium Chloride Carbon Dioxide Anion Gap BUN Creatinine Estim Creat Clear Calc Estimated GFR POC Glucose 113 Random Glucose Calcium Magnesium COVID-19 ([place]) [employer] Assessment and Plan (1) Atrial fibrillation: Qualifiers: Atrial fibrillation type: paroxysmal Qualified Code(s): I48.0 - Paroxysmal atrial fibrillation Status: Acute (2) Preoperative cardiovascular examination: Status: Acute (3) Incisional hernia: Status: Acute Pleasant 55-year-old gentleman with previous abdominal surgeries who is presenting for incisional hernia and left lower abdominal pain. He was recently admitted for the same issue and had AFib with RVR which was short lived. Again he presented and was in AFib with RVR. He had chads Vasc score of at least 2 based on diabetes as well as peripheral vascular disease. He has recent Lexiscan which was normal. He was started on heparin drip on admission. I think he has stroke risk based on his risk profile. Based on his recent stress testing and absence of chest discomfort shortness of breath, he is intermediate risk for perioperative cardiovascular complications. We will discuss about long-term anticoagulation depending on his clinical course. If he continues to have more episodes of atrial fibrillation then I think he should go home with Eliquis. On the other hand if he stays stable then we can do cardiac event monitor on him to define AFib burden and then discuss about anticoagulation. Thank you for allowing me to participate in the care of your patient. Please feel free to contact me if you have any questions.
--- NOTE | 2020-12-19 12:49 | PM.CNGS ---
History of Present Illness Consult details Consult date: 12/19/20 Narrative: This is a 55-year-old gentleman with a recent history of painful recurrent left lower quadrant hernia and rapid atrial fibrillation who returned to the emergency department yesterday with recurrent rapid atrial fibrillation. He reports that this occurred after he had another episode of severe pain. He was treated with Cardizem with good affect. His past history is significant for perforated diverticulitis treated in 2003 with Jenna procedure. He underwent colostomy reversal in 2004 and then developed incisional hernias. He underwent two procedures for repair of these hernias and reports that he was doing well until last week when he experienced acute onset of severe left lower quadrant abdominal pain. He was evaluated by Dr. Mckinley and also underwent cardiac workup. He is scheduled for repair of the hernia tomorrow. Today, he reports that he is feeling well generally. He is still experiencing episodic exacerbations of the left lower quadrant abdominal pain, but is asymptomatic at rest. He reports no nausea, vomiting, fever or chills. Bowels have been moving normally. He has been re-evaluated by the cardiology service today, Dr. Malcolm, and is felt to be at intermediate risk for cardiovascular complications perioperatively. Review of Systems Constitutional: Constitutional: Denies body ache(s), Denies chills and Denies fever(s) Eyes: Eyes: Reports requires corrective lenses Cardiovascular: Cardiovascular: Reports as per HPI, Reports chest pain and Denies dyspnea Respiratory: Respiratory: Denies cough, Denies dyspnea and Denies wheezing Gastrointestinal: Gastrointestinal: Reports as per HPI Musculoskeletal: Comments: Reports generalized aches and pains Allergic/Immunologic: Allergic/Immunologic: Denies wheezing PMFSH Past Medical History Medical History Atrial fibrillation with rapid ventricular response Incisional hernia Type 2 diabetes mellitus without complications Vitamin D deficiency Family History Family History Father No problems noted. Mother No problems noted. Brother No problems noted. Brother No problems noted. Brother No problems noted. Sister No problems noted. Surgical History Surgical History (Updated 12/19/20 @ 12:57 by Ella Reardon MD) History of colostomy History of colostomy reversal History of dental surgery History of hernia repair Social History Social History Household Members: Significant Other Housing: Apartment Do you presently have visiting nurse or other home services: No Alcohol intake: unknown Smoking Status: Current every day smoker Tobacco Type: Cigarette Packs Per Day: 1 Cigarettes Per Day: 20.0 Years Smoked: 45 years Smoked in Last 30 Days: Yes Patient Interested in Nicotine Replacement: Yes Patient Given Instructions on How to Stop Smoking: Yes Date Education Initiated: 12/18/20 Second Hand Smoke Exposure: Yes Use of substances other than those prescribed or required for medical reasons: No Substance Use Type: Marijuana Currently Displaying Signs/Symptoms of Drug Intoxication Withdrawal: No Have you been hit, kicked, punched, or otherwise hurt by someone within the past year? If so, by whom?: No Do you feel safe in your current relationship?: Yes Is there a partner from a previous relationship who is making you feel unsafe now?: No Are you made to feel afraid or neglected: No Advance Directives: No Advance Directives Information Provided: No Do you have thoughts of harming others: None Do you have a plan to hurt others: No Plan Recently lost weight without trying: No service: No Current occupational status: disabled Meds Allergies Allergy/AdvReac Type Severity Reaction Status Date / Time No Known Allergies Allergy Verified 10/15/20 11:26 [No Known Allergies*] Active Medications: Current Medications Generic Name Dose Route Start Last Admin Trade Name Freq PRN Reason Stop Dose Admin Acetaminophen 650 mg 12/18/20 13:17 Acetaminophen 325 Mg Tablet PO Q6H PRN Pain, Mild (Pain Scale 1-3) Heparin Sodium (Porcine) 4,000 unit 12/18/20 13:17 Heparin Sodium,Porcine 5,000 Unit/Ml Vial 40 unit/kg (4000 unit) IVPUSH BOLUS PRN 40 unit/kg - Heparin Protocol Heparin Sodium (Porcine) 7,900 unit 12/18/20 13:17 Heparin Sodium,Porcine 5,000 Unit/Ml Vial 80 unit/kg (7900 unit) IVPUSH BOLUS PRN 80 unit/kg - Heparin Protocol Hydralazine HCl 10 mg 12/18/20 21:00 12/19/20 08:06 Hydralazine Hcl 10 Mg Tablet PO 10 mg BID JEAN-PIERRE Administration Protocol Hydromorphone HCl 1 mg 12/19/20 10:50 12/19/20 11:21 Hydromorphone Hcl 0.5 Mg/0.5 Ml Syringe IVPUSH 1 mg Q2H PRN Administration Pain, Severe (Pain Scale 7-10) Heparin Sodium/Sodium Chloride 25,000 unit in 250 mls @ 0 mls/hr 12/18/20 13:17 12/19/20 10:02 IVCONT 14 units/kg/hr .Q0M JEAN-PIERRE 13.86 mls/hr Administration Protocol Per Protocol Insulin Human Lispro 0 unit 12/18/20 16:30 12/19/20 11:25 Insulin Lispro 100 Unit/Ml 3 Ml Vial SUBCUT Not Given QIDACHS [facility] Protocol Pramipexole Dihydrochloride 0.5 mg 12/18/20 17:00 12/19/20 08:06 Pramipexole Di-Hcl 0.25 Mg Tablet PO 0.5 mg BID@0900,1700 [facility] Administration Sodium Chloride 3 ml 12/18/20 16:00 12/19/20 07:43 0.9 % Sodium Chloride Flush 3 Ml Syringe IVFLUSH Not Given QSHIFT [facility] Home Medications Medication Instructions Recorded Confirmed Last Taken Type pramipexole 0.5 mg tablet 0.5 mg PO BID 06/30/20 12/18/20 Unknown History aspirin 81 mg tablet,delayed 81 mg PO DAILY 10/11/20 12/18/20 12/18/20 History release blood sugar diagnostic #10 ea 10/11/20 10/15/20 Unknown History cholecalciferol (vitamin D3) 1,000 unit PO DAILY 12/14/20 12/18/20 12/18/20 History [Vitamin D3] Physical Exam Vital Signs: Vital Signs: Last Vital Signs Temp 97.2 F 12/19/20 11:26 Pulse 74 12/19/20 11:26 Resp 20 12/19/20 11:26 BP 145/86 H 12/19/20 11:26 Pulse Ox 95 12/19/20 11:26 Body Mass Index 32.6 Const: General: alert and awake HENMT: Head: Yes normocephalic and Yes atraumatic Neck: Neck: Yes trachea midline and Yes supple Resp: Effort & Inspection: normal respiratory effort Auscultation: clear to auscultation bilaterally Cardio: Rate: regular rate Rhythm: regular rhythm GI: Other: Round, soft, nontender, left lower quadrant hernia nonpalpable, no masses Skin: Other: Normal color, warm and dry Psych: Affect: normal affect Attitude: cooperative Thought process: Normal thought process present Results Labs Result diagrams: 12/19/20 04:29 12/19/20 04:29 Labs: Abnormal lab results 12/18/20 12/18/20 12/18/20 Range/Units 13:32 13:32 17:06 WBC 14.2 H (4.8-10.8) X10*3/uL Immature Gran % (Auto) (0.0-0.4) % Neut % (Auto) (45-73) % Lymph % (Auto) (20-40) % Lymph # (Auto) (1.2-4.9) X10*3/uL Abs Immat Gran (auto) (0.00-0.03) X10*3/uL PTT (Heparin Protocol) 42.8 L (53-77.9) SEC BUN (9-16) mg/dL POC Glucose 118 H (60-115) mg/dL 12/18/20 12/19/20 12/19/20 Range/Units 20:35 04:29 04:29 WBC 11.8 H (4.8-10.8) X10*3/uL Immature Gran % (Auto) 0.7 H (0.0-0.4) % Neut % (Auto) 43.9 L (45-73) % Lymph % (Auto) 43.9 H (20-40) % Lymph # (Auto) 5.2 H (1.2-4.9) X10*3/uL Abs Immat Gran (auto) 0.08 H (0.00-0.03) X10*3/uL PTT (Heparin Protocol) (53-77.9) SEC BUN 17 H (9-16) mg/dL POC Glucose 140 H (60-115) mg/dL Short CBC 12/18/20 12/19/20 Range/Units 13:32 04:29 WBC 14.2 H 11.8 H (4.8-10.8) X10*3/uL Hgb 16.9 15.3 (14.0-18.0) g/dl Hct 51.1 46.7 (42-52) % Plt Count 282 214 (160-400) X10*3/uL BMP 12/19/20 04:29 Sodium 140 Potassium 4.0 Chloride 107 Carbon Dioxide 23 BUN 17 H Creatinine 0.76 Calcium 8.8 D All other labs normal. Assessment and Plan (1) Incisional hernia: Status: Acute 55-year-old male with symptomatic recurrent incisional hernia. Repair by Dr. Mckinley is scheduled for tomorrow. Will keep NPO after midnight. (2) Atrial fibrillation: Qualifiers: Atrial fibrillation type: paroxysmal Qualified Code(s): I48.0 - Paroxysmal atrial fibrillation Status: Acute Currently in normal sinus rhythm. Note Dr. Malcolm recommendation for long-term anticoagulation. This can be initiated once he is stable postoperatively.
--- NOTE | 2020-12-19 15:58 | MHC.CM.PN ---
PT REPORTS HE LIVES AT HOME WITH HIS GF AND HE IS FULLY INDEPENDENT WITH CARE AND MOBILITY. PT DENIES THE USE OF DME OR HOME SERVICES. PT REPORTS HE HAS A HCP (COPY REQ) AND A PCP. CURRENT DC PLAN IS HOME WITH NO SERVICES
[2020-12-19 16:09] LABS: Glucose, Whole Blood 113 mg/dL (60-115)
[2020-12-19 20:25] LABS: Glucose, Whole Blood 147 mg/dL (60-115)
[2020-12-20] VITALS (19 sets, daily range): BP systolic 112–159; BP diastolic 67–96; PULSE 70–90; RESP 16–20; TEMP 36.2–37.2; O2SAT 91–99; BMI 17.9
[2020-12-20] MEDS: HYDROmorphone HCl 0.5 MG/0.5 ML SYRINGE 1 MG IVPUSH ×7 (00:20→17:14)
[2020-12-20] MEDS: 0.9 % Sodium Chloride Flush 3 ML SYRINGE IVFLUSH ×4 (00:20→20:43)
--- NOTE | 2020-12-20 03:08 | PC.NURSE ---
Late entry; 12/19/20 [id number] shift; Patient is currently on a heparin drip with doserate of 14 units/kg/hr, infusion rate of 13.86 mls/hr. Heparin drip is to be stopped at 0200, per md order. Patient having surgical procedure in morning. This RN spoke to pharmacy, per pharmacy continue with current heparin bag, per MD order, stop infusion at 0200. Next shift RN made aware.
--- NOTE | 2020-12-20 03:18 | PC.NURSE ---
Per shift report that was given to this RN and per the order by Dr. Reardon, heparin gtt to be stopped at 0200 as the patient is to have a scheduled hernia repair in the morning. This RN stopped the heparin gtt per order (@ 0200) with a witness by Bita RN. Patient is resting comfortably in bed, still complaining of 10/10 pain with minimal relief from the Dilaudid that was just administered. This patient also set off the bed alarm and was observably agitated that he was requiring the bed alarm and assistance to walk to the bathroom. This RN explained to the patient that he has been getting significant amounts of pain medication IV and that he was already unsteady on his feet given the abdominal pain that he has been experiencing. Therefore, the patient was advised again on the use of the call wesley if he had to use the restroom and that the bed alarm would remain on as a safety measure. Patient reluctant but agreeable.
[2020-12-20 06:10] LABS: MANUAL DIFF FLAG NO
[2020-12-20 06:22] LABS: Basophils Absolute Auto 0.1 X10*3/uL (0.0-0.2); Eosinophils Absolute Auto 0.3 X10*3/uL (0.0-0.4); Eosinophils Percent Auto 2.6 % (0-4); Hematocrit 50.1 % (42-52); Hemoglobin 16.6 g/dl (14.0-18.0); Imm Gran Abs Auto 0.06 X10*3/uL (0.00-0.03); Imm Gran Pct Auto 0.5 % (0.0-0.4); Lymphocytes Absolute Auto 3.9 X10*3/uL (1.2-4.9); Lymphocytes Percent Auto 33.2 % (20-40); Mean Corpuscular HGB Conc 33.1 g/dl (31.0-36.0); Mean Corpuscular Hemoglobin 29.5 pg (27.0-33.0); Mean Corpuscular Volume 89.1 fL (80-98); Mean Platelet Volume 10.3 fL (9.4-12.4); Monocytes Absolute Auto 0.8 X10*3/uL (0.1-1.2); Neutrophils Absolute Auto 6.5 X10*3/uL (2.0-8.3); Neutrophils Percent Auto 55.7 % (45-73); Platelet Count 264 X10*3/uL (160-400); Red Blood Count 5.62 X10*6/uL (4.60-5.80); Red Cell Distribution Width 14.2 % (11.0-16.0); White Blood Count 11.6 X10*3/uL (4.8-10.8)
[2020-12-20 06:26] LABS: PTT Heparin Drip 41.3 SEC (53-77.9)
[2020-12-20 06:39] LABS: Anion Gap 16 (12-20); Blood Urea Nitrogen 17 mg/dL (9-16); Calcium 9.3 mg/dL (8.4-10.2); Carbon Dioxide 24 mmol/L (22-29); Chloride 103 mmol/L (96-108); Creatinine Clr Calc Pharmacy 112.4; Estimated Glomerular Filt Rate > 60; Glucose Fasting 107 mg/dL (60-99); Magnesium 2.4 mg/dL (1.6-2.6); Potassium 4.2 mmol/L (3.3-5.1); Sodium 139 mmol/L (135-145)
[2020-12-20 07:06] LABS: Glucose, Whole Blood 114 mg/dL (60-115)
[2020-12-20] MEDS: Pramipexole Di-HCL 0.25 MG TABLET 0.5 MG PO ×2 (07:31→17:03)
[2020-12-20] MEDS: hydrALAZINE HCl 10 MG TABLET PO ×2 (07:32→20:40)
--- NOTE | 2020-12-20 08:40 | P.EN_ITS ---
Event Note Date of Service: 12/20/20 Event Note: Patient is well known to me He was scheduled for repair of an incisional hernia on the left side as a same- day surgery patient However, he had another recurrence of atrial fibrillation with rapid ventricular rate, apparently caused by pain on the hernia He was therefore readmitted He is back to sinus rhythm Abdomen remained soft His CT scan does not show any other pathology except for the fat containing small hernia on the left The wildlife biology technician has cleared him for surgery The patient understands the risks, benefits, and alternatives and wants to proceed with repair of the incisional hernia.
[2020-12-20 10:25] LABS: Glucose, Whole Blood 102 mg/dL (60-115)
[2020-12-20 12:29] LABS: Glucose, Whole Blood 97 mg/dL (60-115)
[2020-12-20] MEDS: Lactated Ringers 1,000 ML 50 ML IV (12:50)
--- NOTE | 2020-12-20 13:55 | HO.ANESPROP2 ---
[facility] Active Problems Active Problems: All Active Problems (Updated 12/18/20 @ 12:44 by Richelle Arnold DO) Atrial fibrillation (Acute) Preoperative cardiovascular examination (Acute) Incisional hernia (Acute) New onset a-fib (Acute) Abdominal pain, acute, left lower quadrant (Acute) Vitamin D deficiency (Acute) Type 2 diabetes mellitus without complications (Acute) Paronychia (Acute) Past Medical History Medical History Atrial fibrillation with rapid ventricular response Incisional hernia Type 2 diabetes mellitus without complications Vitamin D deficiency Family History Family History Father No problems noted. Mother No problems noted. Brother No problems noted. Brother No problems noted. Brother No problems noted. Sister No problems noted. Surgical History Surgical History History of colostomy History of colostomy reversal History of dental surgery History of hernia repair Social History Social History Household Members: Significant Other Housing: Apartment Do you presently have visiting nurse or other home services: No Alcohol intake: unknown Smoking Status: Current every day smoker Tobacco Type: Cigarette Packs Per Day: 1 Cigarettes Per Day: 20.0 Years Smoked: 45 Smoked in Last 30 Days: Yes Patient Interested in Nicotine Replacement: Yes Patient Given Instructions on How to Stop Smoking: Yes Date Education Initiated: 12/18/20 Second Hand Smoke Exposure: Yes Use of substances other than those prescribed or required for medical reasons: Yes Substance Use Type: Marijuana Substance Use Frequency: Occasionally Currently Displaying Signs/Symptoms of Drug Intoxication Withdrawal: No Have you been hit, kicked, punched, or otherwise hurt by someone within the past year? If so, by whom?: No Do you feel safe in your current relationship?: Yes Is there a partner from a previous relationship who is making you feel unsafe now?: No Are you made to feel afraid or neglected: No Advance Directives: No Advance Directives Information Provided: No Do you have thoughts of harming others: None Do you have a plan to hurt others: No Plan Recently lost weight without trying: No service: No Current occupational status: disabled Meds Allergies Allergy/AdvReac Type Severity Reaction Status Date / Time No Known Allergies Allergy Verified 10/15/20 11:26 [No Known Allergies*] Active Medications: Current Medications Generic Name Dose Route Start Last Admin Trade Name Freq PRN Reason Stop Dose Admin Acetaminophen 650 mg 12/18/20 13:17 Acetaminophen 325 Mg Tablet PO Q6H PRN Pain, Mild (Pain Scale 1-3) Hydralazine HCl 10 mg 12/18/20 21:00 12/20/20 07:32 Hydralazine Hcl 10 Mg Tablet PO 10 mg BID [facility] Administration Protocol Hydromorphone HCl 1 mg 12/19/20 10:50 12/20/20 11:33 Hydromorphone Hcl 0.5 Mg/0.5 Ml Syringe IVPUSH 1 mg Q2H PRN Administration Pain, Severe (Pain Scale 7-10) Lactated Ringer's 1,000 mls @ 50 mls/hr 12/20/20 14:00 Lr IV .Q20H [facility], [facility]1983 Insulin Human Lispro 0 unit 12/18/20 16:30 12/20/20 11:28 Insulin Lispro 100 Unit/Ml 3 Ml Vial SUBCUT Not Given QIDACHS [facility], [facility]1983 Protocol Pramipexole Dihydrochloride 0.5 mg 12/18/20 17:00 12/20/20 07:31 Pramipexole Di-Hcl 0.25 Mg Tablet PO 0.5 mg BID@0900,1700 [facility]1983 Administration Sodium Chloride 3 ml 12/18/20 16:00 12/20/20 07:33 0.9 % Sodium Chloride Flush 3 Ml Syringe IVFLUSH 3 ml QSHIFT [facility], [facility] Administration Home Medications Medication Instructions Recorded Confirmed Last Taken Type pramipexole 0.5 mg tablet 0.5 mg PO BID 06/30/20 12/18/20 Unknown History aspirin 81 mg tablet,delayed 81 mg PO DAILY 10/11/20 12/18/20 12/18/20 History release blood sugar diagnostic #10 ea 10/11/20 10/15/20 Unknown History cholecalciferol (vitamin D3) 1,000 unit PO DAILY 12/14/20 12/18/20 12/18/20 History [Vitamin D3] Exam Exam Date and Time: December 20, 2020 1355 Height,Weight and Vital Signs: Height 5 ft 8 in Weight 53.524 kg Last Vital Signs Temp 98.6 F 12/20/20 12:27 Pulse 74 12/20/20 12:27 Resp 16 12/20/20 12:27 BP 134/89 12/20/20 12:27 Pulse Ox 95 12/20/20 12:27 Pertinent Lab Results Pertinent Lab Results: Laboratory Tests 12/18/20 12/18/20 12/18/20 11:02 11:03 11:03 WBC 14.5 H RBC 6.38 H D Hgb 18.7 H D Hct 56.1 H D MCV 87.9 MCH 29.3 MCHC 33.3 RDW 14.6 Plt Count 302 D MPV 10.2 Immature Gran % (Auto) 0.6 H Neut % (Auto) 62.8 Lymph % (Auto) 28.4 [place] % (Auto) 6.1 Eos % (Auto) 1.4 Baso % (Auto) 0.7 Lymph # (Auto) 4.1 [place] # (Auto) 0.9 Eos # (Auto) 0.2 Baso # (Auto) 0.1 Abs Immat Gran (auto) 0.09 H Absolute Neuts (auto) 9.1 H Absolute Nucleated RBC 0.000 Nucleated RBC % (auto) 0.0 Smear Tech's Comments PT 11.1 INR 0.9 APTT 43.7 H PTT (Heparin Protocol) Sodium Potassium Chloride Carbon Dioxide Anion Gap BUN Creatinine Estim Creat Clear Calc Estimated GFR POC Glucose Random Glucose Fasting Glucose Calcium Magnesium Total Bilirubin AST ALT Alkaline Phosphatase Troponin I High Sens 4.9 B-Natriuretic Peptide 17 Total Protein Albumin COVID-19 ([place]) COVID-19 Clin Com 12/18/20 12/18/20 12/18/20 11:03 12:56 13:32 WBC 14.2 H RBC 5.77 Hgb 16.9 Hct 51.1 MCV 88.6 MCH 29.3 MCHC 33.1 RDW 14.4 Plt Count 282 MPV 9.9 Immature Gran % (Auto) Neut % (Auto) Lymph % (Auto) [place] % (Auto) Eos % (Auto) Baso % (Auto) Lymph # (Auto) [place] # (Auto) Eos # (Auto) Baso # (Auto) Abs Immat Gran (auto) Absolute Neuts (auto) Absolute Nucleated RBC 0.000 Nucleated RBC % (auto) 0.0 Smear Tech's Comments PT INR APTT PTT (Heparin Protocol) Sodium 141 Potassium 4.2 Chloride 102 Carbon Dioxide 22 Anion Gap 21 H BUN 16 Creatinine 0.95 Estim Creat Clear Calc 97.8 Estimated GFR > 60 POC Glucose Random Glucose 203 H D Fasting Glucose Calcium 11.0 H D Magnesium 2.2 Total Bilirubin 0.5 AST 24 ALT 22 Alkaline Phosphatase 65 Troponin I High Sens B-Natriuretic Peptide Total Protein 7.7 Albumin 4.8 COVID-19 ([facility]) Negative COVID-19 Clin Com See Note 12/18/20 12/18/20 12/18/20 13:32 17:06 20:35 WBC RBC Hgb Hct MCV MCH MCHC RDW Plt Count MPV Immature Gran % (Auto) Neut % (Auto) Lymph % (Auto) [place] % (Auto) Eos % (Auto) Baso % (Auto) Lymph # (Auto) [place] # (Auto) Eos # (Auto) Baso # (Auto) Abs Immat Gran (auto) Absolute Neuts (auto) Absolute Nucleated RBC Nucleated RBC % (auto) Smear Tech's Comments PT 11.8 INR 1.0 APTT PTT (Heparin Protocol) 42.8 L Sodium Potassium Chloride Carbon Dioxide Anion Gap BUN Creatinine Estim Creat Clear Calc Estimated GFR POC Glucose 118 H 140 H Random Glucose Fasting Glucose Calcium Magnesium Total Bilirubin AST ALT Alkaline Phosphatase Troponin I High Sens B-Natriuretic Peptide Total Protein Albumin COVID-19 ([place]) COVID-19 [place] Com 12/18/20 12/19/20 12/19/20 22:34 04:29 04:29 WBC RBC Hgb Hct MCV MCH MCHC RDW Plt Count MPV Immature Gran % (Auto) Neut % (Auto) Lymph % (Auto) [place] % (Auto) Eos % (Auto) Baso % (Auto) Lymph # (Auto) [place] # (Auto) Eos # (Auto) Baso # (Auto) Abs Immat Gran (auto) Absolute Neuts (auto) Absolute Nucleated RBC Nucleated RBC % (auto) Smear Tech's Comments PT INR APTT PTT (Heparin Protocol) 69.6 D 57.5 Sodium Potassium Chloride Carbon Dioxide Anion Gap BUN Creatinine Estim Creat Clear Calc Estimated GFR POC Glucose Random Glucose Fasting Glucose Calcium Magnesium 2.0 Total Bilirubin AST ALT Alkaline Phosphatase Troponin I High Sens B-Natriuretic Peptide Total Protein Albumin COVID-19 ([facility]) COVID-19 Clin Com 04/12/19/20 12/19/20 04:29 04:29 04:29 WBC 11.8 H RBC 5.25 Hgb 15.3 Hct 46.7 MCV 89.0 MCH 29.1 MCHC 32.8 RDW 14.6 Plt Count 214 MPV 9.9 Immature Gran % (Auto) 0.7 H Neut % (Auto) 43.9 L Lymph % (Auto) 43.9 H [place] % (Auto) 7.6 Eos % (Auto) 3.1 Baso % (Auto) 0.8 Lymph # (Auto) 5.2 H [place] # (Auto) 0.9 Eos # (Auto) 0.4 Baso # (Auto) 0.1 Abs Immat Gran (auto) 0.08 H Absolute Neuts (auto) 5.2 Absolute Nucleated RBC 0.000 Nucleated RBC % (auto) 0.0 Smear Tech's Comments VERIFIED PT 12.9 INR 1.1 APTT PTT (Heparin Protocol) Sodium 140 Potassium 4.0 Chloride 107 Carbon Dioxide 23 Anion Gap 14 BUN 17 H Creatinine 0.76 Estim Creat Clear Calc 121.3 Estimated GFR > 60 POC Glucose Random Glucose 105 D Fasting Glucose Calcium 8.8 D Magnesium Total Bilirubin AST ALT Alkaline Phosphatase Troponin I High Sens B-Natriuretic Peptide Total Protein Albumin COVID-19 ([place]) COVID-19 [place] 12/19/20 12/19/20 12/19/20 07:34 11:17 16:03 WBC RBC Hgb Hct MCV MCH MCHC RDW Plt Count MPV Immature Gran % (Auto) Neut % (Auto) Lymph % (Auto) [place] % (Auto) Eos % (Auto) Baso % (Auto) Lymph # (Auto) [place] # (Auto) Eos # (Auto) Baso # (Auto) Abs Immat Gran (auto) Absolute Neuts (auto) Absolute Nucleated RBC Nucleated RBC % (auto) Smear Tech's Comments PT INR APTT PTT (Heparin Protocol) Sodium Potassium Chloride Carbon Dioxide Anion Gap BUN Creatinine Estim Creat Clear Calc Estimated GFR POC Glucose 110 113 113 Random Glucose Fasting Glucose Calcium Magnesium Total Bilirubin AST ALT Alkaline Phosphatase Troponin I High Sens B-Natriuretic Peptide Total Protein Albumin COVID-19 ([place]) COVID-Apportable 12/19/20 12/20/20 12/20/20 20:20 05:40 05:40 WBC 11.6 H RBC 5.62 Hgb 16.6 Hct 50.1 MCV 89.1 MCH 29.5 MCHC 33.1 RDW 14.2 Plt Count 264 MPV 10.3 Immature Gran % (Auto) 0.5 H Neut % (Auto) 55.7 Lymph % (Auto) 33.2 [place] % (Auto) 7.0 Eos % (Auto) 2.6 Baso % (Auto) 1.0 Lymph # (Auto) 3.9 [place] # (Auto) 0.8 Eos # (Auto) 0.3 Baso # (Auto) 0.1 Abs Immat Gran (auto) 0.06 H Absolute Neuts (auto) 6.5 Absolute Nucleated RBC 0.000 Nucleated RBC % (auto) 0.0 Smear Tech's Comments PT INR APTT PTT (Heparin Protocol) Sodium 139 Potassium 4.2 Chloride 103 Carbon Dioxide 24 Anion Gap 16 BUN 17 H Creatinine 0.82 Estim Creat Clear Calc 112.4 Estimated GFR > 60 POC Glucose 147 H Random Glucose Fasting Glucose 107 H Calcium 9.3 Magnesium 2.4 Total Bilirubin AST ALT Alkaline Phosphatase Troponin I High Sens B-Natriuretic Peptide Total Protein Albumin COVID-19 ([place]) COVIDuVore 12/20/20 12/20/20 12/20/20 05:40 07:03 10:20 WBC RBC Hgb Hct MCV MCH MCHC RDW Plt Count MPV Immature Gran % (Auto) Neut % (Auto) Lymph % (Auto) [place] % (Auto) Eos % (Auto) Baso % (Auto) Lymph # (Auto) [place] # (Auto) Eos # (Auto) Baso # (Auto) Abs Immat Gran (auto) Absolute Neuts (auto) Absolute Nucleated RBC Nucleated RBC % (auto) Smear Tech's Comments PT INR APTT PTT (Heparin Protocol) 41.3 L D Sodium Potassium Chloride Carbon Dioxide Anion Gap BUN Creatinine Estim Creat Clear Calc Estimated GFR POC Glucose 114 102 Random Glucose Fasting Glucose Calcium Magnesium Total Bilirubin AST ALT Alkaline Phosphatase Troponin I High Sens B-Natriuretic Peptide Total Protein Albumin COVID-19 ([place]) COVIDuVore 12/20/20 12:25 WBC RBC Hgb Hct MCV MCH MCHC RDW Plt Count MPV Immature Gran % (Auto) Neut % (Auto) Lymph % (Auto) [place] % (Auto) Eos % (Auto) Baso % (Auto) Lymph # (Auto) [place] # (Auto) Eos # (Auto) Baso # (Auto) Abs Immat Gran (auto) Absolute Neuts (auto) Absolute Nucleated RBC Nucleated RBC % (auto) Smear Tech's Comments PT INR APTT PTT (Heparin Protocol) Sodium Potassium Chloride Carbon Dioxide Anion Gap BUN Creatinine Estim Creat Clear Calc Estimated GFR POC Glucose 97 Random Glucose Fasting Glucose Calcium Magnesium Total Bilirubin AST ALT Alkaline Phosphatase Troponin I High Sens B-Natriuretic Peptide Total Protein Albumin COVID-19 ([facility]) COVID-19 Clin Com Airway Mallampati Class: III TM Dist: >3cm Denture: Upper and Lower Loose/Missing/Broken Teeth: Yes Heart: RRR Lungs: NL Assessment and Plan Assessment Anesthesia Assessment: Anesthesia Plan Discussed and Chart Reviewed Final Anesthetic Review NPO: Yes ASA Class: III Final Preanesthetic Review: No Changes in Pt Med Stat, Meds/Allgs Chart Reviewed, Consent Obtained/Reviewed and Anes Risks/Benef Reviewed Patient Risk: Intermediate Procedure Risk: Low Anesthetic Plan Anesthetic Plan: GA Disposition: Standard PACU
--- NOTE | 2020-12-20 14:05 | P.PNIM_ITS ---
Subjective Subjective Date of Service: 12/20/20 Interval History: llq pain Cardiovascular Cardiovascular: Reports no additional cardiovascular complaints Genitourinary Genitourinary: Reports no additional male genitourinary complaints Physical Exam Vital Signs: Vital Signs: Last Vital Signs Temp 98.6 F 12/20/20 12:27 Pulse 74 12/20/20 12:27 Resp 16 12/20/20 12:27 BP 134/89 12/20/20 12:27 Pulse Ox 95 12/20/20 12:27 Body Mass Index 17.9 General: AO X 3, no acute distress Resp: CTA bilateral CVS: S1,S2,RRR GI: soft, non tender, non distended Neuro: motor grossly intact Psych: appropriate affect Objective Data Current Medications Generic Name Dose Route Start Last Admin Trade Name Freq PRN Reason Stop Dose Admin Acetaminophen 650 mg 12/18/20 13:17 Acetaminophen 325 Mg Tablet PO Q6H PRN Pain, Mild (Pain Scale 1-3) Hydralazine HCl 10 mg 12/18/20 21:00 12/20/20 07:32 Hydralazine Hcl 10 Mg Tablet PO 10 mg BID JEAN-IPERRE Administration Protocol Hydromorphone HCl 1 mg 12/19/20 10:50 12/20/20 11:33 Hydromorphone Hcl 0.5 Mg/0.5 Ml Syringe IVPUSH 1 mg Q2H PRN Administration Pain, Severe (Pain Scale 7-10) Hydromorphone HCl 0.25 mg 12/20/20 13:57 Hydromorphone Hcl 0.5 Mg/0.5 Ml Syringe IVPUSH Q5M PRN Pain, Severe (Pain Scale 7-10) Lactated Ringer's 1,000 mls @ 50 mls/hr 12/20/20 14:00 12/20/20 12:50 Lr IV 50 mls/hr .Q20H JEAN-PIERRE Administration Promethazine HCl 12.5 mg/ 50.5 mls @ 202 mls/hr 12/20/20 13:57 Sodium Chloride IV ONCE PRN Nausea and Vomiting Insulin Human Lispro 0 unit 12/18/20 16:30 12/20/20 11:28 Insulin Lispro 100 Unit/Ml 3 Ml Vial SUBCUT Not Given QIDACHS [facility] Protocol Ketorolac Tromethamine 15 mg 12/20/20 13:57 Ketorolac Tromethamine 15 Mg/Ml Vial IVPUSH ONCE PRN Pain, Moderate (Pain Scale 4-6 Ondansetron HCl 4 mg 12/20/20 13:57 Ondansetron Hcl 4 Mg/2 Ml Vial IVPUSH ONCE PRN Nausea and Vomiting Oxycodone HCl 5 mg 12/20/20 13:57 Oxycodone Hcl Immed Release 5 Mg Tablet PO ONCE PRN Pain, Severe (Pain Scale 7-10) Pramipexole Dihydrochloride 0.5 mg 12/18/20 17:00 12/20/20 07:31 Pramipexole Di-Hcl 0.25 Mg Tablet PO 0.5 mg BID@0900,1700 JEAN-PIERRE Administration Sodium Chloride 3 ml 12/18/20 16:00 12/20/20 07:33 0.9 % Sodium Chloride Flush 3 Ml Syringe IVFLUSH 3 ml QSHIFT JEAN-PIERRE Administration Labs CBC & Chem 7: 12/20/20 05:40 12/20/20 05:40 Assessment and Plan (1) Atrial fibrillation: Status: Acute Assessment and Plan: 55M presented with abdominal pain from known LLQ ventral hernia, and afib with rvr afib with rvr converted to NSR on cardizem infusion, now dced, continue oral cardizem 120mg daily started IV heparin (now on hold for surgery) cardio appreciated - tbd oral AC after surgery vs event monitor avoid caffeine dehydration improved with hydration ventral hernia pain control plan for surgical repair today DM hold orals insulin HTN cardizem hydralazine
--- NOTE | 2020-12-20 14:33 | P.OP_ITS ---
Operative Note Operative Note Date of Service: 12/20/20 Narrative: Preop diagnosis: Incisional hernia Postop diagnosis: Incisional hernia Procedure: Repair of an incisional hernia with Ventralex mesh Surgeon: Zeeshan Mckinley MD Occupational Health Professional: None The patient is a 55-year-old male who had previously undergone a laparotomy for perforated diverticulitis in the distant past. He had a stoma on the left side then which was eventually reversed. He had repair of a large incisional hernia with mesh many years ago. He came to the emergency room last week because of pain on the left side the abdomen around the area of the previous stoma. His CAT scan had shown an incisional hernia just lateral to the large mesh from before, with fat tissue. There was no bowel involved. He was in new onset atrial fibrillation at that time but he reverted back to sinus. He was discharged and scheduled for outpatient surgery today. However, he was admitted again 2 days ago because of atrial fibrillation with rapid ventricular rate. This also reverted back to sinus after several hours. He felt that he may have had rapid ventricular rate again in view of his pain on his hernia. There was no other pathology seen on review of the CAT scan with the radiologist. I therefore told him that we can repair the hernia and hopefully this will help with his pain. He understood technique of repair with mesh. He was aware of the risks, benefits, and alternative He was brought toe the operating room placed supine on table under general anesthesia via endotracheal tube. The abdomen was prepped and draped in usual sterile fashion. A surgical time-out was done. The patient received cefazolin 2 g IV preoperatively I infiltrated the planned line of incision with lidocaine 1%. I made an incision transversely on the skin just above the level of the stoma using a blade 15. This was carried down through the full-thickness of skin and subcutaneous fat using electrocautery. We then were able to visualize a fat containing hernia. We applied Gamez retractors to allow good exposure of thel hernia. I proceeded to gently dissect around the hernia to separate this from the rest of the subcutaneous layer all the way to the fascial defect sharply and bluntly.. I was able to clearly visualize and define the fascial defect. I gently dissected adhesions surrounding this hernia tethering this to the fascial defect using Metzenbaum scissors. This allowed me to reduce the hernia completely. I applied Maylin clamps on the fascial defect. I examined the underside of the fascia and this appeared to be free of any adhesions. I could see bowel loops under the defect itself but this was not adherent to the fascial edge. I was able to palpate for the margins of the fascial defect and this appeared to be clear. There was note of some old metal tacks that was seen at the fascia along the defect and this was removed with Shea scissors. The old mesh appeared to be well incorporated. The fascial defect was about 3 to 3.5 cm long. I therefore chose a Ventralex mesh, medium size. I positioned this flat under the fascial defect. This was flattened and I applied Prolene 2-0 sutures to the fascial edge towards the Prolene straps on each side to secure this. I then trimmed the Prolene straps . I then closed the fascial defect with a running Maxon 1 stitch with care being taken so as to ensure that we were not catching any bowel loops. I copiously irrigated. I reapposed the thick subcutaneous area with Dexon 3-0 interrupted sutures. Skin closure was achieved with skin rahel. I then infiltrated the area around the incision with Marcaine 0.5% for postop anesthesia. Dressings were applied. The patient tolerated the procedure well with no complications noted. Initial and final counts of sponges and instruments were correct. Estimated blood loss was about 15 cc. The patient was extubated without difficulty and transferred to the recovery room with stable vital signs.
[2020-12-20] MEDS: oxyCODONE HCl Immed Release 5 MG TABLET 10 MG PO ×2 (14:58→19:59)
[2020-12-20] MEDS: HYDROmorphone HCl 0.5 MG/0.5 ML SYRINGE 0.25 MG IVPUSH ×4 (15:00→15:25)
[2020-12-20 16:19] LABS: Glucose, Whole Blood 181 mg/dL (60-115)
[2020-12-20] MEDS: Insulin Lispro 100 UNIT/ML 3 ML VIAL SUBCUT ×2 (17:04→20:40)
--- NOTE | 2020-12-20 18:21 | PM.EVENT ---
Event Note Date of Service: 12/20/20 Event Note: He underwent repair of an incisional hernia with Ventralex mesh Earlier today he tolerated procedure well Seen postop -says he is comfortable Explained to him the procedure that was done He looks well Stable vital signs Pain management No lifting more than 15 lb His family was with him during the postop check
--- NOTE | 2020-12-20 18:45 | PC.NURSE ---
Patient c/o 10/10 pain to left lower abdomen throughout entire day, medicated every 2 hours per order with minimal relief. Patient underwent hernia repair this afternoon. DSD is clean, dry, and intact. Oxycodone added by surgeon, patient educated re pain management regimen. Patient verbalizes understanding.
[2020-12-20 20:05] LABS: Glucose, Whole Blood 262 mg/dL (60-115)
[2020-12-21] VITALS (10 sets, daily range): BP systolic 121–157; BP diastolic 68–96; PULSE 74–108; RESP 18–20; TEMP 36.2–37.1; O2SAT 92–96; BMI 32.5
[2020-12-21] MEDS: HYDROmorphone HCl 0.5 MG/0.5 ML SYRINGE 1 MG IVPUSH ×7 (01:38→23:20)
[2020-12-21] MEDS: Ketorolac Tromethamine 15 MG/ML VIAL IVPUSH (03:56)
[2020-12-21 06:12] LABS: MANUAL DIFF FLAG NO
[2020-12-21 06:51] LABS: Basophils Percent Auto 0.1 % (0-2); Eosinophils Percent Auto 0.1 % (0-4); Hemoglobin 16.4 g/dl (14.0-18.0); Imm Gran Abs Auto 0.07 X10*3/uL (0.00-0.03); Imm Gran Pct Auto 0.5 % (0.0-0.4); Lymphocytes Absolute Auto 1.6 X10*3/uL (1.2-4.9); Lymphocytes Percent Auto 12.2 % (20-40); Mean Corpuscular HGB Conc 32.8 g/dl (31.0-36.0); Mean Corpuscular Hemoglobin 29.3 pg (27.0-33.0); Mean Corpuscular Volume 89.4 fL (80-98); Mean Platelet Volume 10.2 fL (9.4-12.4); Monocytes Absolute Auto 0.7 X10*3/uL (0.1-1.2); Monocytes Percent Auto 5.3 % (2-11); Neutrophils Absolute Auto 10.8 X10*3/uL (2.0-8.3); Neutrophils Percent Auto 81.8 % (45-73); Platelet Count 270 X10*3/uL (160-400); Red Blood Count 5.59 X10*6/uL (4.60-5.80); Red Cell Distribution Width 14.1 % (11.0-16.0); White Blood Count 13.2 X10*3/uL (4.8-10.8)
[2020-12-21 06:56] LABS: Anion Gap 15 (12-20); Blood Urea Nitrogen 21 mg/dL (9-16); Calcium 9.2 mg/dL (8.4-10.2); Carbon Dioxide 23 mmol/L (22-29); Chloride 105 mmol/L (96-108); Creatinine Clr Calc Pharmacy 75.2; Estimated Glomerular Filt Rate > 60; Glucose Fasting 135 mg/dL (60-99); Potassium 4.3 mmol/L (3.3-5.1); Sodium 139 mmol/L (135-145)
[2020-12-21 07:09] LABS: Glucose, Whole Blood 144 mg/dL (60-115)
[2020-12-21] MEDS: Pramipexole Di-HCL 0.25 MG TABLET 0.5 MG PO ×2 (08:06→17:16)
[2020-12-21] MEDS: hydrALAZINE HCl 10 MG TABLET PO ×2 (08:06→20:41)
--- NOTE | 2020-12-21 09:01 | P.PNGS_ITS ---
Subjective Subjective Date of Service: 12/21/20 Interval history: Complaints of surgical site Says he did not get his pain meds as he was supposed to last night States he was not happy with his care from staff during the night No GI complaints Physical Exam Vital Signs: Vital Signs: Last Vital Signs Temp 97.7 F 12/21/20 07:25 Pulse 74 12/21/20 08:06 Resp 18 12/21/20 07:25 BP 135/92 H 12/21/20 08:06 Pulse Ox 96 12/21/20 07:25 Body Mass Index 17.9 Laboratory Results - last 24 hr 12/20/20 12/20/20 12/20/20 10:20 12:25 16:14 WBC RBC Hgb Hct MCV MCH MCHC RDW Plt Count MPV Immature Gran % (A uto) Neut % (Auto) Lymph % (Auto) [place] % (Auto) Eos % (Auto) Baso % (Auto) Lymph # (Auto) [place] # (Auto) Eos # (Auto) Baso # (Auto) Abs Immat Gran (au to) Absolute Neuts (au to) Absolute Nucleated RBC Nucleated RBC % (a uto) Sodium Potassium Chloride Carbon Dioxide Anion Gap BUN Creatinine Estim Creat Clear Calc Estimated GFR POC Glucose 102 97 181 H Fasting Glucose Calcium 12/20/20 12/21/20 12/21/20 19:42 05:16 05:16 WBC 13.2 H RBC 5.59 Hgb 16.4 Hct 50.0 MCV 89.4 MCH 29.3 MCHC 32.8 RDW 14.1 Plt Count 270 MPV 10.2 Immature Gran % (A uto) 0.5 H Neut % (Auto) 81.8 H Lymph % (Auto) 12.2 L [place] % (Auto) 5.3 Eos % (Auto) 0.1 Baso % (Auto) 0.1 Lymph # (Auto) 1.6 [place] # (Auto) 0.7 Eos # (Auto) 0.0 Baso # (Auto) 0.0 Abs Immat Gran (au to) 0.07 H Absolute Neuts (au to) 10.8 H Absolute Nucleated RBC 0.000 Nucleated RBC % (a uto) 0.0 Sodium 139 Potassium 4.3 Chloride 105 Carbon Dioxide 23 Anion Gap 15 BUN 21 H Creatinine 0.82 Estim Creat Clear Calc 75.2 Estimated GFR > 60 POC Glucose 262 H Fasting Glucose 135 H Calcium 9.2 12/21/20 07:05 WBC RBC Hgb Hct MCV MCH MCHC RDW Plt Count MPV Immature Gran % (A uto) Neut % (Auto) Lymph % (Auto) [place] % (Auto) Eos % (Auto) Baso % (Auto) Lymph # (Auto) [place] # (Auto) Eos # (Auto) Baso # (Auto) Abs Immat Gran (au to) Absolute Neuts (au to) Absolute Nucleated RBC Nucleated RBC % (a uto) Sodium Potassium Chloride Carbon Dioxide Anion Gap BUN Creatinine Estim Creat Clear Calc Estimated GFR POC Glucose 144 H Fasting Glucose Calcium Const: General: no acute distress Resp: Effort & Inspection: normal respiratory effort Cardio: Rhythm: regular rhythm GI: Other: Soft, dressings dry, no guarding or rebound, repair intact Progress Note: A&P Assessment and plan (1) Incisional hernia: Status: Acute Assessment and Plan: Status post repair with mesh No bowel movement noted Has issues, as before Continues to require Dilaudid Says Last does not have Had a long discussion with him and nursing staff with regards to his care No lifting allowed - emphasized patient Pain management On diet Fall Risk Details Current Medications: Current Medications Generic Name Dose Route Start Last Admin Trade Name Freq PRN Reason Stop Dose Admin Acetaminophen 650 mg 12/18/20 13:17 Acetaminophen 325 Mg Tablet PO Q6H PRN Pain, Mild (Pain Scale 1-3) Hydralazine HCl 10 mg 12/18/20 21:00 12/21/20 08:06 Hydralazine Hcl 10 Mg Tablet PO 10 mg BID [facility] Administration Protocol Hydromorphone HCl 1 mg 12/19/20 10:50 12/21/20 08:06 Hydromorphone Hcl 0.5 Mg/0.5 Ml Syringe IVPUSH 1 mg Q2H PRN Administration Pain, Severe (Pain Scale 7-10) Promethazine HCl 12.5 mg/ 50.5 mls @ 202 mls/hr 12/20/20 13:57 Sodium Chloride IV ONCE PRN Nausea and Vomiting Insulin Human Lispro 0 unit 12/18/20 16:30 12/21/20 07:14 Insulin Lispro 100 Unit/Ml 3 Ml Vial SUBCUT Not Given QIDACHS [facility] Protocol Ondansetron HCl 4 mg 12/20/20 13:57 Ondansetron Hcl 4 Mg/2 Ml Vial IVPUSH ONCE PRN Nausea and Vomiting Ondansetron HCl 4 mg 12/20/20 16:34 Ondansetron Hcl 4 Mg/2 Ml Vial IVPUSH Q8H PRN Nausea Oxycodone HCl 5 mg 12/20/20 13:57 Oxycodone Hcl Immed Release 5 Mg Tablet PO ONCE PRN Pain, Severe (Pain Scale 7-10) Oxycodone HCl 10 mg 12/20/20 14:32 12/20/20 19:59 Oxycodone Hcl Immed Release 5 Mg Tablet PO 10 mg Q4H PRN Administration Pain, Moderate (Pain Scale 4-6 Pramipexole Dihydrochloride 0.5 mg 12/18/20 17:00 12/21/20 08:06 Pramipexole Di-Hcl 0.25 Mg Tablet PO 0.5 mg BID@0900,1700 [facility] Administration Sodium Chloride 3 ml 12/18/20 16:00 12/20/20 20:43 0.9 % Sodium Chloride Flush 3 Ml Syringe IVFLUSH 3 ml QSHIFT [facility] Administration Time Spent With Patient Time: Total time spent is greater than 50% in coordination of care (as documented) at patient's floor/unit and/or counseling patient: Time with patient: 25 - 35 minutes
--- NOTE | 2020-12-21 10:47 | HO.POSTANES ---
Post Anesthesia Evaluation Post Anesthesia Evaluation Vital Signs: Vital Signs Temp Pulse Resp BP Pulse Ox 12/21/20 10:21 18 12/21/20 08:06 74 135/92 H 12/21/20 07:25 97.7 F 74 18 135/92 H 96 12/21/20 03:33 97.5 F 80 18 121/68 96 12/21/20 00:00 97.2 F 108 H 18 142/80 H 93 Anesthesia: General Endotracheal-GETA Mental Status: Awake Pain Control: Satisfactory Nausea/Vomiting: None Hydration: Adequate Anesthesia-Related Issues: No Anes. Related Issues
[2020-12-21 11:05] LABS: Glucose, Whole Blood 181 mg/dL (60-115)
[2020-12-21] MEDS: Insulin Lispro 100 UNIT/ML 3 ML VIAL SUBCUT ×2 (11:36→20:42)
--- NOTE | 2020-12-21 12:21 | P.PNCA_ITS ---
Subjective Subjective Date of Service: 12/21/20 Interval history: Status post surgery. He has abdominal pain. No more atrial fibrillation. Physical Exam Vital Signs: Last Vital Signs Temp 98.7 F 12/21/20 11:27 Pulse 79 12/21/20 11:27 Resp 20 12/21/20 11:27 BP 157/76 H 12/21/20 11:27 Pulse Ox 95 12/21/20 11:27 Body Mass Index 17.9 GENERAL APPEARANCE: Abdominal pain. HEENT: unremarkable. HEAD: normocephalic, atraumatic. NECK/THYROID: no carotid bruit, no jugular venous distention. SKIN: no suspicious lesions, warm and dry. HEART: no murmurs, regular rate and rhythm, S1, S2 normal. LUNGS: clear to auscultation bilaterally. ABDOMEN: Soft, left lower abdominal tenderness. EXTREMITIES: no clubbing, cyanosis, or edema. PERIPHERAL PULSES: equal. NEUROLOGIC: nonfocal, alert and oriented. PSYCH: mood/affect full range. Results Labs and Meds Result diagrams: 12/21/20 05:16 12/21/20 05:16 Lab results: Laboratory Results - last 24 hr 12/20/20 12/20/20 12/20/20 12:25 16:14 19:42 WBC RBC Hgb Hct MCV MCH MCHC RDW Plt Count MPV Immature Gran % (Auto) Neut % (Auto) Lymph % (Auto) [place] % (Auto) Eos % (Auto) Baso % (Auto) Lymph # (Auto) [place] # (Auto) Eos # (Auto) Baso # (Auto) Abs Immat Gran (auto) Absolute Neuts (auto) Absolute Nucleated RBC Nucleated RBC % (auto) Sodium Potassium Chloride Carbon Dioxide Anion Gap BUN Creatinine Estim Creat Clear Calc Estimated GFR POC Glucose 97 181 H 262 H Fasting Glucose Calcium 12/21/20 12/21/20 12/21/20 05:16 05:16 07:05 WBC 13.2 H RBC 5.59 Hgb 16.4 Hct 50.0 MCV 89.4 MCH 29.3 MCHC 32.8 RDW 14.1 Plt Count 270 MPV 10.2 Immature Gran % (Auto) 0.5 H Neut % (Auto) 81.8 H Lymph % (Auto) 12.2 L [place] % (Auto) 5.3 Eos % (Auto) 0.1 Baso % (Auto) 0.1 Lymph # (Auto) 1.6 [place] # (Auto) 0.7 Eos # (Auto) 0.0 Baso # (Auto) 0.0 Abs Immat Gran (auto) 0.07 H Absolute Neuts (auto) 10.8 H Absolute Nucleated RBC 0.000 Nucleated RBC % (auto) 0.0 Sodium 139 Potassium 4.3 Chloride 105 Carbon Dioxide 23 Anion Gap 15 BUN 21 H Creatinine 0.82 Estim Creat Clear Calc 75.2 Estimated GFR > 60 POC Glucose 144 H Fasting Glucose 135 H Calcium 9.2 12/21/20 10:54 WBC RBC Hgb Hct MCV MCH MCHC RDW Plt Count MPV Immature Gran % (Auto) Neut % (Auto) Lymph % (Auto) [place] % (Auto) Eos % (Auto) Baso % (Auto) Lymph # (Auto) [place] # (Auto) Eos # (Auto) Baso # (Auto) Abs Immat Gran (auto) Absolute Neuts (auto) Absolute Nucleated RBC Nucleated RBC % (auto) Sodium Potassium Chloride Carbon Dioxide Anion Gap BUN Creatinine Estim Creat Clear Calc Estimated GFR POC Glucose 181 H Fasting Glucose Calcium Progress Note: A&P Assessment and plan (1) Atrial fibrillation: Status: Acute Assessment and Plan: 55-year-old gentleman who presented with abdominal pain and atrial fibrillation rapid ventricular response twice. If he was self-limiting. He underwent surgery for his hernia and is still in a lot of pain. Normal atrial fibrillation on telemetry. His chads Vasc score is 3. He has peripheral vascular disease, diabetes and hypertension. His blood pressure currently is elevated because of pain. His duration of atrial fibrillation was short and that is why when he was seen by Dr. Garcia on last admission we did not start anticoagulation. I think at this stage options are to start anticoagulation or to do cardiac event monitor to assess AFib burden and then decide. It appears he had significant abdominal pain and at that time atrial fibrillation happen so it could be related to his presentation. If he developed any atrial fibrillation on telemetry while he is inpatient I think we should start anticoagulation. Thank you for allowing me to participate in the care of your patient. Please feel free to contact me if you have any questions. Fall Risk Details Current Medications: Current Medications Generic Name Dose Route Start Last Admin Trade Name Freq PRN Reason Stop Dose Admin Acetaminophen 650 mg 12/18/20 13:17 Acetaminophen 325 Mg Tablet PO Q6H PRN Pain, Mild (Pain Scale 1-3) Hydralazine HCl 10 mg 12/18/20 21:00 12/21/20 08:06 Hydralazine Hcl 10 Mg Tablet PO 10 mg BID [facility] Administration Protocol Hydromorphone HCl 1 mg 12/19/20 10:50 12/21/20 10:21 Hydromorphone Hcl 0.5 Mg/0.5 Ml Syringe IVPUSH 1 mg Q2H PRN Administration Pain, Severe (Pain Scale 7-10) Hydromorphone HCl 1 mg 12/21/20 11:44 Hydromorphone Hcl 2 Mg Tablet PO Q4H PRN Pain, Severe (Pain Scale 7-10) Promethazine HCl 12.5 mg/ 50.5 mls @ 202 mls/hr 12/20/20 13:57 Sodium Chloride IV ONCE PRN Nausea and Vomiting Insulin Human Lispro 0 unit 12/18/20 16:30 12/21/20 11:36 Insulin Lispro 100 Unit/Ml 3 Ml Vial SUBCUT 2 unit QIDACHS [facility] Administration Protocol Ondansetron HCl 4 mg 12/20/20 13:57 Ondansetron Hcl 4 Mg/2 Ml Vial IVPUSH ONCE PRN Nausea and Vomiting Ondansetron HCl 4 mg 12/20/20 16:34 Ondansetron Hcl 4 Mg/2 Ml Vial IVPUSH Q8H PRN Nausea Oxycodone HCl 5 mg 12/20/20 13:57 Oxycodone Hcl Immed Release 5 Mg Tablet PO ONCE PRN Pain, Severe (Pain Scale 7-10) Pramipexole Dihydrochloride 0.5 mg 12/18/20 17:00 12/21/20 08:06 Pramipexole Di-Hcl 0.25 Mg Tablet PO 0.5 mg BID@0900,1700 [facility] Administration Sodium Chloride 3 ml 12/18/20 16:00 12/21/20 09:20 0.9 % Sodium Chloride Flush 3 Ml Syringe IVFLUSH Not Given QSHIFT [facility] Time Spent With Patient Time: Total time spent is greater than 50% in coordination of care (as documented) at patient's floor/unit and/or counseling patient: Time with patient: 15 - 24 minutes
--- NOTE | 2020-12-21 12:32 | MHC.CM.PN ---
Patient had hernia repair surgery yesterday and continues to need IV Dilaudid for pain control. Discharge plan is home no services. family will provide transportation. CM will continue to follow for discharge needs.
[2020-12-21] MEDS: HYDROmorphone HCl 2 MG TABLET 1 MG PO (12:39)
[2020-12-21] MEDS: 0.9 % Sodium Chloride Flush 3 ML SYRINGE IVFLUSH ×2 (15:24→23:53)
--- NOTE | 2020-12-21 15:53 | P.PNIM_ITS ---
Subjective Subjective Date of Service: 12/21/20 Interval History: the patient was seen and evaluated this morning Laying in bed, complaining of pain at the surgical site Denies any fever, chills or shortness of breath No reported other overnight events. Systemic review: No fever, chills or weakness No chest pain, palpitation No shortness of breath or coughing No abdominal pain, nausea or vomiting No urinary symptoms Pain at the surgical site, no drainage or erythema. Physical Exam Vital Signs: Vital Signs: Last Vital Signs Temp 98.7 F 12/21/20 11:27 Pulse 79 12/21/20 11:27 Resp 20 12/21/20 11:27 BP 157/76 H 12/21/20 11:27 Pulse Ox 95 12/21/20 11:27 Body Mass Index 17.9 Const: Other: Constitutional : Alert, oriented, not in distress Neck : Normal inspection, Supple Cardiovascular : RRR, S1 S2, no lower extremity edema Respiratory : Good bilateral air entry, no crackles, wheezes or rhonchi Gastrointestinal: soft, lax, Normal bowel sounds, Non tender Skin : Warm/Dry, No rash, site of surgery to tenderness, no drainage Neurological : Alert & oriented x3, No focal deficit Objective Data Current Medications Generic Name Dose Route Start Last Admin Trade Name Freq PRN Reason Stop Dose Admin Acetaminophen 650 mg 12/18/20 13:17 Acetaminophen 325 Mg Tablet PO Q6H PRN Pain, Mild (Pain Scale 1-3) Hydralazine HCl 10 mg 12/18/20 21:00 12/21/20 08:06 Hydralazine Hcl 10 Mg Tablet PO 10 mg BID [facility] Administration Protocol Hydromorphone HCl 1 mg 12/19/20 10:50 12/21/20 15:21 Hydromorphone Hcl 0.5 Mg/0.5 Ml Syringe IVPUSH 1 mg Q2H PRN Administration Pain, Severe (Pain Scale 7-10) Hydromorphone HCl 1 mg 12/21/20 11:44 12/21/20 12:39 Hydromorphone Hcl 2 Mg Tablet PO 1 mg Q4H PRN Administration Pain, Severe (Pain Scale 7-10) Promethazine HCl 12.5 mg/ 50.5 mls @ 202 mls/hr 12/20/20 13:57 Sodium Chloride IV ONCE PRN Nausea and Vomiting Insulin Human Lispro 0 unit 12/18/20 16:30 12/21/20 11:36 Insulin Lispro 100 Unit/Ml 3 Ml Vial SUBCUT 2 unit QIDACHS [facility] Administration Protocol Ondansetron HCl 4 mg 12/20/20 13:57 Ondansetron Hcl 4 Mg/2 Ml Vial IVPUSH ONCE PRN Nausea and Vomiting Ondansetron HCl 4 mg 12/20/20 16:34 Ondansetron Hcl 4 Mg/2 Ml Vial IVPUSH Q8H PRN Nausea Oxycodone HCl 5 mg 12/20/20 13:57 Oxycodone Hcl Immed Release 5 Mg Tablet PO ONCE PRN Pain, Severe (Pain Scale 7-10) Pramipexole Dihydrochloride 0.5 mg 12/18/20 17:00 12/21/20 08:06 Pramipexole Di-Hcl 0.25 Mg Tablet PO 0.5 mg BID@0900,1700 [facility] Administration Sodium Chloride 3 ml 12/18/20 16:00 12/21/20 15:24 0.9 % Sodium Chloride Flush 3 Ml Syringe IVFLUSH 3 ml QSHIFT [facility] Administration Labs CBC & Chem 7: 12/21/20 05:16 12/21/20 05:16 Assessment and Plan (1) Atrial fibrillation: Status: Acute Assessment and Plan: 55M presented with abdominal pain from known LLQ ventral hernia, and afib with rvr afib with rvr converted to NSR on cardizem infusion continue oral cardizem 120mg daily Discontinue anticoagulation cardio appreciated consider outpatient event monitor avoid caffeine dehydration improved with hydration ventral hernia Pain management Day 1 post surgical repair Continue IV Dilaudid p.r.n. Change oxycodone to oral Dilaudid for poor tolerance DM hold orals insulin HTN cardizem hydralazine
[2020-12-21 16:11] LABS: Glucose, Whole Blood 125 mg/dL (60-115)
--- NOTE | 2020-12-21 18:30 | PC.NURSE ---
Patient reports 10/10 pain in lower left quadrant. Patient adamant to receive IV dilaudid every 2 hours; patient also offered PO dilaudid, but refuses. Patient amb around unit x 2.
[2020-12-21 20:23] LABS: Glucose, Whole Blood 171 mg/dL (60-115)
[2020-12-22] VITALS (8 sets, daily range): BP systolic 125–158; BP diastolic 66–94; PULSE 64–75; RESP 18–20; TEMP 36.2–37; O2SAT 93–96
[2020-12-22] MEDS: HYDROmorphone HCl 0.5 MG/0.5 ML SYRINGE 1 MG IVPUSH ×3 (01:22→05:27)
[2020-12-22 06:07] LABS: Hematocrit 47.7 % (42-52); Hemoglobin 15.3 g/dl (14.0-18.0); Mean Corpuscular HGB Conc 32.1 g/dl (31.0-36.0); Mean Corpuscular Hemoglobin 29.3 pg (27.0-33.0); Mean Corpuscular Volume 91.2 fL (80-98); Mean Platelet Volume 10.2 fL (9.4-12.4); Platelet Count 210 X10*3/uL (160-400); Red Blood Count 5.23 X10*6/uL (4.60-5.80); Red Cell Distribution Width 14.5 % (11.0-16.0); White Blood Count 13.3 X10*3/uL (4.8-10.8)
[2020-12-22 06:32] LABS: Anion Gap 15 (12-20); Blood Urea Nitrogen 25 mg/dL (9-16); Calcium 8.8 mg/dL (8.4-10.2); Carbon Dioxide 23 mmol/L (22-29); Chloride 106 mmol/L (96-108); Creatinine Clr Calc Pharmacy 119.6; Estimated Glomerular Filt Rate > 60; Glucose Random 113 mg/dL (60-115); Sodium 140 mmol/L (135-145)
[2020-12-22 07:11] LABS: Glucose, Whole Blood 147 mg/dL (60-115)
[2020-12-22] MEDS: Pramipexole Di-HCL 0.25 MG TABLET 0.5 MG PO ×2 (09:32→16:13)
[2020-12-22] MEDS: 0.9 % Sodium Chloride Flush 3 ML SYRINGE IVFLUSH ×3 (09:33→23:34)
[2020-12-22] MEDS: hydrALAZINE HCl 10 MG TABLET PO ×2 (09:33→20:20)
[2020-12-22] MEDS: Acetaminophen 325 MG TABLET 650 MG PO ×3 (10:58→20:19)
--- NOTE | 2020-12-22 11:00 | P.PNCA_ITS ---
Subjective Subjective Date of Service: 12/22/20 Interval history: Abdominal pain improving. He is eating. No atrial fibrillation on telemetry Review of Systems Review of Systems Abdominal pain Yes all other systems are reviewed and are negative Physical Exam Vital Signs: Last Vital Signs Temp 97.3 F 12/22/20 07:44 Pulse 71 12/22/20 09:33 Resp 19 12/22/20 07:44 BP 129/80 12/22/20 09:33 Pulse Ox 94 12/22/20 07:44 Body Mass Index 32.5 GENERAL APPEARANCE: Distress due to abdominal pain. HEENT: unremarkable. HEAD: normocephalic, atraumatic. NECK/THYROID: no carotid bruit, no jugular venous distention. SKIN: no suspicious lesions, warm and dry. HEART: no murmurs, regular rate and rhythm, S1, S2 normal. LUNGS: clear to auscultation bilaterally. ABDOMEN: Soft, left lower abdominal tenderness. EXTREMITIES: no clubbing, cyanosis, or edema. PERIPHERAL PULSES: equal. NEUROLOGIC: nonfocal, alert and oriented. PSYCH: mood/affect full range. Results Labs and Meds Result diagrams: 12/22/20 05:09 12/22/20 05:09 Lab results: Laboratory Results - last 24 hr 12/21/20 12/21/20 12/21/20 10:54 16:08 20:19 WBC RBC Hgb Hct MCV MCH MCHC RDW Plt Count MPV Absolute Nucleated RBC Nucleated RBC % (auto) Sodium Potassium Chloride Carbon Dioxide Anion Gap BUN Creatinine Estim Creat Clear Calc Estimated GFR POC Glucose 181 H 125 H 171 H Random Glucose Calcium 12/22/20 12/22/20 12/22/20 05:09 05:09 07:06 WBC 13.3 H RBC 5.23 Hgb 15.3 Hct 47.7 MCV 91.2 MCH 29.3 MCHC 32.1 RDW 14.5 Plt Count 210 MPV 10.2 Absolute Nucleated RBC 0.000 Nucleated RBC % (auto) 0.0 Sodium 140 Potassium 4.0 Chloride 106 Carbon Dioxide 23 Anion Gap 15 BUN 25 H Creatinine 0.77 Estim Creat Clear Calc 119.6 Estimated GFR > 60 POC Glucose 147 H Random Glucose 113 Calcium 8.8 Progress Note: A&P Assessment and plan (1) Atrial fibrillation: Status: Acute Assessment and Plan: 55-year-old gentleman who presented with abdominal pain and atrial fibrillation rapid ventricular response twice. It was self-limiting. He underwent surgery for his hernia and is still in a lot of pain. No atrial fibrillation on telemetry. His chads Vasc score is 3. He has peripheral vascular disease, diabetes and hypertension. His blood pressure currently is elevated because of pain. His duration of atrial fibrillation was short and that is why when he was seen by Dr. Garcia on last admission we did not start anticoagulation. He currently has no evidence of atrial fibrillation on telemetry. We will discharge him home with plan of doing cardiac event monitor and follow up with Dr. Garcia. Thank you for allowing me to participate in the care of your patient. Please feel free to contact me if you have any questions. Fall Risk Details Current Medications: Current Medications Generic Name Dose Route Start Last Admin Trade Name Freq PRN Reason Stop Dose Admin Acetaminophen 650 mg 12/18/20 13:17 Acetaminophen 325 Mg Tablet PO Q6H PRN Pain, Mild (Pain Scale 1-3) Acetaminophen 650 mg 12/22/20 10:00 12/22/20 10:58 Acetaminophen 325 Mg Tablet PO 650 mg Q6H [facility] Administration Hydralazine HCl 10 mg 12/18/20 21:00 12/22/20 09:33 Hydralazine Hcl 10 Mg Tablet PO 10 mg BID [facility] Administration Protocol Hydromorphone HCl 2 mg 12/22/20 10:10 Hydromorphone Hcl 2 Mg Tablet PO Q4H PRN Pain, Severe (Pain Scale 7-10) Hydromorphone HCl 1 mg 12/22/20 10:10 Hydromorphone Hcl 0.5 Mg/0.5 Ml Syringe IVPUSH Q6H PRN Pain, Severe (Pain Scale 7-10) Promethazine HCl 12.5 mg/ 50.5 mls @ 202 mls/hr 12/20/20 13:57 Sodium Chloride IV ONCE PRN Nausea and Vomiting Insulin Human Lispro 0 unit 12/18/20 16:30 12/22/20 07:29 Insulin Lispro 100 Unit/Ml 3 Ml Vial SUBCUT Not Given QIDACHS [facility] Protocol Ondansetron HCl 4 mg 12/20/20 13:57 Ondansetron Hcl 4 Mg/2 Ml Vial IVPUSH ONCE PRN Nausea and Vomiting Ondansetron HCl 4 mg 12/20/20 16:34 Ondansetron Hcl 4 Mg/2 Ml Vial IVPUSH Q8H PRN Nausea Oxycodone HCl 5 mg 12/20/20 13:57 Oxycodone Hcl Immed Release 5 Mg Tablet PO ONCE PRN Pain, Severe (Pain Scale 7-10) Pramipexole Dihydrochloride 0.5 mg 12/18/20 17:00 12/22/20 09:32 Pramipexole Di-Hcl 0.25 Mg Tablet PO 0.5 mg BID@0900,1700 [facility] Administration Sodium Chloride 3 ml 12/18/20 16:00 12/22/20 09:33 0.9 % Sodium Chloride Flush 3 Ml Syringe IVFLUSH 3 ml QSHIFT [facility] Administration Time Spent With Patient Time: Total time spent is greater than 50% in coordination of care (as document ed) at patient's floor/unit and/or counseling patient: Time with patient: 15 - 24 minutes
[2020-12-22 11:09] LABS: Glucose, Whole Blood 156 mg/dL (60-115)
[2020-12-22] MEDS: HYDROmorphone HCl 2 MG TABLET PO ×3 (11:22→20:20)
[2020-12-22] MEDS: Insulin Lispro 100 UNIT/ML 3 ML VIAL SUBCUT (11:51)
--- NOTE | 2020-12-22 15:04 | HO.PM.IMPN ---
Subjective Subjective Date of Service: 12/22/20 Interval History: The patient was seen and evaluated this morning Laying in bed, complaining of pain at the surgical site Denies any fever, chills or shortness of breath No reported other overnight events. Systemic review: No fever, chills or weakness No chest pain, palpitation No shortness of breath or coughing No abdominal pain, nausea or vomiting No urinary symptoms Pain at the surgical site, no drainage or erythema. Physical Exam Vital Signs: Vital Signs: Last Vital Signs Temp 97.8 F 12/22/20 11:56 Pulse 72 12/22/20 11:56 Resp 19 12/22/20 11:56 BP 140/90 H 12/22/20 11:56 Pulse Ox 96 12/22/20 11:56 Body Mass Index 32.5 Const: Other: Constitutional : Alert, oriented, not in distress Neck : Normal inspection, Supple Cardiovascular : RRR, S1 S2, no lower extremity edema Respiratory : Good bilateral air entry, no crackles, wheezes or rhonchi Gastrointestinal: soft, lax, Normal bowel sounds, Non tender Skin : Warm/Dry, No rash, site of surgery to tenderness, no drainage Neurological : Alert & oriented x3, No focal deficit Objective Data Current Medications Generic Name Dose Route Start Last Admin Trade Name Freq PRN Reason Stop Dose Admin Acetaminophen 650 mg 12/18/20 13:17 Acetaminophen 325 Mg Tablet PO Q6H PRN Pain, Mild (Pain Scale 1-3) Acetaminophen 650 mg 12/22/20 10:00 12/22/20 10:58 Acetaminophen 325 Mg Tablet PO 650 mg Q6H [facility] Administration Hydralazine HCl 10 mg 12/18/20 21:00 12/22/20 09:33 Hydralazine Hcl 10 Mg Tablet PO 10 mg BID [facility] Administration Protocol Hydromorphone HCl 2 mg 12/22/20 10:10 12/22/20 11:22 Hydromorphone Hcl 2 Mg Tablet PO 2 mg Q4H PRN Administration Pain, Severe (Pain Scale 7-10) Hydromorphone HCl 1 mg 12/22/20 10:10 Hydromorphone Hcl 0.5 Mg/0.5 Ml Syringe IVPUSH Q6H PRN Pain, Severe (Pain Scale 7-10) Promethazine HCl 12.5 mg/ 50.5 mls @ 202 mls/hr 12/20/20 13:57 Sodium Chloride IV ONCE PRN Nausea and Vomiting Insulin Human Lispro 0 unit 12/18/20 16:30 12/22/20 11:51 Insulin Lispro 100 Unit/Ml 3 Ml Vial SUBCUT 2 unit QIDACHS [facility] Administration Protocol Ondansetron HCl 4 mg 12/20/20 13:57 Ondansetron Hcl 4 Mg/2 Ml Vial IVPUSH ONCE PRN Nausea and Vomiting Ondansetron HCl 4 mg 12/20/20 16:34 Ondansetron Hcl 4 Mg/2 Ml Vial IVPUSH Q8H PRN Nausea Oxycodone HCl 5 mg 12/20/20 13:57 Oxycodone Hcl Immed Release 5 Mg Tablet PO ONCE PRN Pain, Severe (Pain Scale 7-10) Pramipexole Dihydrochloride 0.5 mg 12/18/20 17:00 12/22/20 09:32 Pramipexole Di-Hcl 0.25 Mg Tablet PO 0.5 mg BID@0900,1700 [facility] Administration Sodium Chloride 3 ml 12/18/20 16:00 12/22/20 09:33 0.9 % Sodium Chloride Flush 3 Ml Syringe IVFLUSH 3 ml QSHIFT [facility] Administration Labs CBC & Chem 7: 12/22/20 05:09 12/22/20 05:09 Assessment and Plan (1) Atrial fibrillation: Status: Acute Assessment and Plan: 55M presented with abdominal pain from known LLQ ventral hernia, and afib with rvr afib with rvr converted to NSR on cardizem infusion continue oral cardizem 120mg daily Discontinue anticoagulation cardio appreciated consider outpatient event monitor avoid caffeine dehydration improved with hydration ventral hernia Pain management Day 2 post surgical repair Continue IV Dilaudid p.r.n. continue oral Dilaudid for poor tolerance DM hold orals insulin HTN cardizem hydralazine
--- NOTE | 2020-12-22 15:55 | P.PNGS_ITS ---
Subjective Subjective Date of Service: 12/22/20 Interval history: Patient has less pain with new pain medication. He denies any new problems. Physical Exam Vital Signs: Vital Signs: Last Vital Signs Temp 98.1 F 12/22/20 15:34 Pulse 68 12/22/20 15:34 Resp 20 12/22/20 15:34 BP 158/82 H 12/22/20 15:34 Pulse Ox 93 12/22/20 15:34 Body Mass Index 32.5 Const: General: cooperative, comfortable and no acute distress Resp: Effort & Inspection: normal respiratory effort GI: Abdomen image: 1. Incision in the left lower quadrant is clean, dry, and intact without redness or discharge. No hernia recurrence is identified Skin: General skin exam: no rashes or lesions noted Extrem: General: Yes normal to inspection Progress Note: A&P Assessment and plan (1) Incisional hernia: Status: Acute Assessment and Plan: 55-year-old male status post repair of incisional hernia in the left lower q uadrant. Wounds are clean, dry, and intact. His pain control seems to be better with the hydromorphone 2 mg. Clear for discharge from surgical standpoint. Fall Risk Details Current Medications: Current Medications Generic Name Dose Route Start Last Admin Trade Name Freq PRN Reason Stop Dose Admin Acetaminophen 650 mg 12/18/20 13:17 Acetaminophen 325 Mg Tablet PO Q6H PRN Pain, Mild (Pain Scale 1-3) Acetaminophen 650 mg 12/22/20 10:00 12/22/20 10:58 Acetaminophen 325 Mg Tablet PO 650 mg Q6H JEAN-PIERRE Administration Hydralazine HCl 10 mg 12/18/20 21:00 12/22/20 09:33 Hydralazine Hcl 10 Mg Tablet PO 10 mg BID JEAN-PIERRE Administration Protocol Hydromorphone HCl 2 mg 12/22/20 10:10 12/22/20 11:22 Hydromorphone Hcl 2 Mg Tablet PO 2 mg Q4H PRN Administration Pain, Severe (Pain Scale 7-10) Hydromorphone HCl 1 mg 12/22/20 10:10 Hydromorphone Hcl 0.5 Mg/0.5 Ml Syringe IVPUSH Q6H PRN Pain, Severe (Pain Scale 7-10) Promethazine HCl 12.5 mg/ 50.5 mls @ 202 mls/hr 12/20/20 13:57 Sodium Chloride IV ONCE PRN Nausea and Vomiting Insulin Human Lispro 0 unit 12/18/20 16:30 12/22/20 11:51 Insulin Lispro 100 Unit/Ml 3 Ml Vial SUBCUT 2 unit QIDACHS JEAN-PIERRE Administration Protocol Ondansetron HCl 4 mg 12/20/20 13:57 Ondansetron Hcl 4 Mg/2 Ml Vial IVPUSH ONCE PRN Nausea and Vomiting Ondansetron HCl 4 mg 12/20/20 16:34 Ondansetron Hcl 4 Mg/2 Ml Vial IVPUSH Q8H PRN Nausea Oxycodone HCl 5 mg 12/20/20 13:57 Oxycodone Hcl Immed Release 5 Mg Tablet PO ONCE PRN Pain, Severe (Pain Scale 7-10) Pramipexole Dihydrochloride 0.5 mg 12/18/20 17:00 12/22/20 09:32 Pramipexole Di-Hcl 0.25 Mg Tablet PO 0.5 mg BID@0900,1700 JEAN-PIERRE Administration Sodium Chloride 3 ml 12/18/20 16:00 12/22/20 09:33 0.9 % Sodium Chloride Flush 3 Ml Syringe IVFLUSH 3 ml QSHIFT JEAN-PIERRE Administration Time Spent With Patient Time: Total time spent is greater than 50% in coordination of care (as documented) at patient's floor/unit and/or counseling patient: Time with patient: 15 - 24 minutes
[2020-12-22 16:11] LABS: Glucose, Whole Blood 131 mg/dL (60-115)
[2020-12-22 20:22] LABS: Glucose, Whole Blood 132 mg/dL (60-115)
[2020-12-23] MEDS: HYDROmorphone HCl 2 MG TABLET PO ×4 (00:05→11:53)
[2020-12-23 03:29] VITALS: BP 148/95; PULSE 77; RESP 18; TEMP 36.4; O2SAT 96
[2020-12-23] MEDS: Acetaminophen 325 MG TABLET 650 MG PO ×2 (03:57→09:18)
[2020-12-23] MEDS: Pramipexole Di-HCL 0.25 MG TABLET 0.5 MG PO ×2 (03:58→07:57)
[2020-12-23 07:01] LABS: Hematocrit 50.3 % (42-52); Hemoglobin 16.2 g/dl (14.0-18.0); Mean Corpuscular HGB Conc 32.2 g/dl (31.0-36.0); Mean Corpuscular Hemoglobin 28.9 pg (27.0-33.0); Mean Corpuscular Volume 89.8 fL (80-98); Mean Platelet Volume 10.3 fL (9.4-12.4); Platelet Count 248 X10*3/uL (160-400); Red Cell Distribution Width 14.3 % (11.0-16.0); White Blood Count 11.8 X10*3/uL (4.8-10.8)
[2020-12-23 07:29] VITALS: BP 134/92; PULSE 86; RESP 20; TEMP 36.6; O2SAT 97
[2020-12-23 07:49] LABS: Glucose, Whole Blood 150 mg/dL (60-115)
[2020-12-23 07:56] VITALS: BP 134/92; PULSE 86
[2020-12-23] MEDS: 0.9 % Sodium Chloride Flush 3 ML SYRINGE IVFLUSH (07:56)
[2020-12-23] MEDS: hydrALAZINE HCl 10 MG TABLET PO (07:56)
[2020-12-23 11:19] VITALS: BP 151/88; PULSE 85; RESP 18; TEMP 36.4; O2SAT 97
--- NOTE | 2020-12-23 11:32 | PM.DS ---
DS: Providers Provider Date of Service: 12/23/20 Date of admission: 12/18/20 12:49 Primary care physician: Kris Ivory MD Consults: 12/18/20 13:17 Consult to Cardiology Routine Consulting Provider: Cam Malcolm Reason for consultation: pafib rvr Consult to General Surgery Routine Consulting Provider: Zeeshan Mckinley Reason for consultation: hernia, planned for elective repair 12/20/20, admitted for afib DS: Diagnosis Discharge Diagnosis (1) Incisional hernia: Status: Acute (2) Atrial fibrillation with rapid ventricular response: Status: Acute (3) Type 2 diabetes mellitus without complications: Status: Acute (4) Abdominal pain, acute, left lower quadrant: Status: Acute DS: Medications Discharge Medications Home Medications: Home Medications Medication Instructions Recorded Confirmed pramipexole 0.5 mg tablet 0.5 mg PO BID 06/30/20 12/18/20 aspirin 81 mg tablet,delayed 81 mg PO DAILY 10/11/20 12/18/20 release blood sugar diagnostic #10 ea 10/11/20 10/15/20 cholecalciferol (vitamin D3) 1,000 unit PO DAILY 12/14/20 12/18/20 [Vitamin D3] Previous Rx's Medication Instructions Recorded hydralazine 10 mg tablet 10 mg PO BID #180 tab 08/10/20 metformin 500 mg tablet 1,000 mg PO BID #360 tab 08/10/20 empagliflozin 25 mg tablet 25 mg PO QAM #90 tab 11/30/20 diltiazem HCl [Cardizem CD] 120 mg PO DAILY #30 cap 12/16/20 oxycodone 10 mg PO Q4H PRN #20 tab 12/16/20 hydromorphone 2 mg PO Q4-6H PRN #20 tab 12/23/20 DS: Summary Hospital Course Hospital Course: Admission note HPI 55M presented with llq pain. patient was recently discharged 12/16/20 after admission for LLQ pain from ventral hernia complicated by transient episode of afib. on that admission he underwent stress test that was unremarkable. he was started on cardizem 120mg daily to prevent further afib and decision was made to forgo anticoagulation as it seemed like an isolated event. he was seen by surgery who recommended surgical repair to help with his pain and plan was to repair this week electively. patient had been doing okay with pain meds at home, on day of admission patient had 20oz of coffee and in ED was noted again to be in afib with RVR in 140s-160s. he denied chest pain or palpitations, his LLQ is manageable as long as hes not moving, but once he moves he is in significant pain. labs significant for signs of hemoconcentration, otherwise unremarkable. patient was given iv fluids, pain meds, and started on cardizem infusion. Hospital course The patient was admitted to the hospital for atrial fibrillation with rapid ventricular response seems to be secondary to worsening abdominal pain secondary to ventral hernia. He was evaluated by Cardiology team as his rhythm converted back to normal sinus rhythm with usage of Cardizem drip. Cardiology suggested holding on anticoagulation for the time being as the patient home has Mariano Vasc score of 2 but the AFib could be temporary as a result of pain. Plan to follow-up in Cardiology office for heart monitoring device and to decide anticoagulation 10. He was evaluated by Dr. Mckinley for the ventral hernia and had surgical repair with good outcome. He continue to complain of significant amount of pain controlled by Dilaudid which he will be discharged on short course office and to follow-up with Dr. Mckinley in 2 weeks. Time Spent with Patient Time attestation: Total time spent providing and/or coordinating discharge services: Discharge coordination time: Greater than 30 minutes Physical Exam Vital Signs: Vital Signs: Last Vital Signs Temp 97.5 F 12/23/20 11:19 Pulse 85 12/23/20 11:19 Resp 18 12/23/20 11:19 BP 151/88 H 12/23/20 11:19 Pulse Ox 97 12/23/20 11:19 Body Mass Index 32.5 Const: Other: Constitutional : Alert, oriented, not in distress Neck : Normal inspection, Supple Cardiovascular : RRR, S1 S2, no lower extremity edema Respiratory : Good bilateral air entry, no crackles, wheezes or rhonchi Gastrointestinal: soft, lax, Normal bowel sounds, Non tender Skin : Warm/Dry, No rash, site of surgery to tenderness, no drainage Neurological : Alert & oriented x3, No focal deficit DS: Data Data Completed and Pending Labs on day of discharge: Laboratory Results - last 24 hr 12/22/20 12/22/20 12/23/20 16:07 20:15 06:04 WBC 11.8 H RBC 5.60 Hgb 16.2 Hct 50.3 MCV 89.8 MCH 28.9 MCHC 32.2 RDW 14.3 Plt Count 248 MPV 10.3 Absolute Nucleated RBC 0.000 Nucleated RBC % (auto) 0.0 POC Glucose 131 H 132 H 12/23/20 07:33 WBC RBC Hgb Hct MCV MCH MCHC RDW Plt Count MPV Absolute Nucleated RBC Nucleated RBC % (auto) POC Glucose 150 H Discharge Plan Discharge Patient Disposition: Home, Self-Care Discharge Diagnosis: Ventral hernia Atrial fibrillation Referrals: Kris Ivory MD [Primary Care Provider] - 1 Week Discharge Medications: New hydromorphone 2 mg Tablet 2 mg PO Q4-6H PRN (Reason: Pain, Severe (Pain Scale 7-10)) Qty: 20 RF: 0 Continued hydralazine 10 mg tablet 10 mg PO BID Qty: 180 RF: 1 metformin 500 mg tablet 1,000 mg PO BID Qty: 360 RF: 1 empagliflozin [Jardiance] 25 mg tablet 25 mg PO QAM Qty: 90 RF: 1 cholecalciferol (vitamin D3) [Vitamin D3] 25 mcg (1,000 unit) Capsule 1,000 unit PO DAILY RF: 0 diltiazem HCl [Cardizem CD] 120 mg Capsule,Extended Release 24hr 120 mg PO DAILY Qty: 30 RF: 0 oxycodone 5 mg Tablet 10 mg PO Q4H PRN (Reason: Pain, Moderate (Pain Scale 4-6) Qty: 20 RF: 0 pramipexole 0.5 mg tablet 0.5 mg PO BID RF: 0 (DME) blood sugar diagnostic Strip See Rx Instructions strip Not Applicable BID Qty: 10 RF: 0 aspirin [Adult Low Dose Aspirin] 81 mg tablet,delayed release (DR/EC) 81 mg PO DAILY RF: 0 Discharge Orders: Discharge Order (Routine); Ordered 12/23/20 Ordered By: Tacho Ken Diet: advance to usual diet Activity on Discharge: As tolerated Stand Alone Forms: Patient Portal Discharge page Care Plan Goals: Read below Health Concerns: Read below Plan of Treatment: You were admitted to the hospital for evaluation of worsening abdominal pain associated with irregular rapid heartbeat. You were evaluated by Cardiology for an abnormal heart rhythm called atrial fibrillation that resolved with IV medications. It was believed to be secondary to pain. [employer] recommended follow-up as outpatient for heart monitoring to decide on the need of blood thinners. You had hernia repair by Dr. Mckinley. Assessment: To follow-up with cardiology office as scheduled for heart monitoring device To use Dilaudid as needed for pain management. To follow-up with Dr. Mckinley office in 2 weeks.
[2020-12-23 11:40] LABS: Glucose, Whole Blood 159 mg/dL (60-115)
[2020-12-23] MEDS: Insulin Lispro 100 UNIT/ML 3 ML VIAL SUBCUT (11:53)
== END 2020-12-23 12:38 | disposition home or self-care (01) | DRG 355 ==
LOC: HO.ED 12:44 → HO.EDOVER 13:00 → HO.IMC 18:53
PROVIDERS: Hospitalist; Physician Assistant Medical; Surgery; Admitting Provider Internal Medicine; Emergency Provider Emergency Medicine; PCP Internal Medicine; Visit Provider Student in an Organized Health Care Education/Training Program
PROC: 0WUF0JZ Supplement Abdominal Wall with Synthetic Substitute, Open Approach (ICD-10-PCS; principal; 2020-12-20 13:20)
DX: K43.9 Ventral hernia without obstruction or gangrene (principal); I48.0 Paroxysmal atrial fibrillation; E86.0 Dehydration; E11.9 Type 2 diabetes mellitus without complications; I10 Essential (primary) hypertension; F17.210 Nicotine dependence, cigarettes, uncomplicated; Z71.6 Tobacco abuse counseling; Z79.01 Long term (current) use of anticoagulants; Z79.84 Long term (current) use of oral hypoglycemic drugs; Z79.899 Other long term (current) drug therapy
CPT/HCPCS: 36415; 71045; 74177; 78452; 80048; 80053; 80076; 82947; 83605; 83690; 83735; 83880; 84443; 84484; 85025; 85027; 85379; 85610; 85730; 87635; 93005; 93017; 93306; 96374; 96375; 99024; 99285; A9500; C1781; J0690; J1170; J1885; J2250; J2270; J2405; J2785; J3010; Q9967

== ENCOUNTER → 2021-01-02 08:50 | Outpatient (BNVA) | payer OTHER, SELFPAY | PROVIDERS: PCP Internal Medicine; Visit Provider Surgery | DX: Z48.815 Encounter for surgical aftercare following surgery on the digestive system (principal); Z87.19 Personal history of other diseases of the digestive system | CPT/HCPCS: 99212 ==

== ENCOUNTER → 2021-01-09 13:44 | Outpatient (REF) | payer OTHER, SELFPAY ==
--- NOTE | 2021-01-09 13:47 | HM_ITS ---
A 55-year-old male. REQUESTING PROVIDER: Dr. Malcolm. INDICATION FOR TEST: Paroxysmal atrial fibrillation. ENROLLMENT PERIOD: From 01/09/2021 to 02/08/2021, for a total period of 30 days. FINDINGS: Baseline rhythm was normal sinus rhythm. Intermittent episodes of atrial fibrillation with rapid ventricular response with a heart rate up to 207 beats noted. Some episodes were more suggestive of atrial flutter with 2:1 AV conduction. There were isolated PACs and PVCs noted. Most of the atrial fibrillation episodes were auto triggered without any reported symptoms. of atrial fibrillation was not reported on this report. CONCLUSION: 1. Baseline rhythm is normal sinus rhythm. 2. Intermittent atrial fibrillation with rapid ventricular response up to 207 beats per minute. 3. No obvious patient reported events during these autotriggered events. Papi Padron MD NRS/MODL / [id number]
[2021-01-09 15:04] LABS: Estimated Average Glucose 140 mg/dL; Hemoglobin A1c % 6.5 %
== END ==
LOC: HO.CARD 13:44
PROVIDERS: Internal Medicine; Visit Provider Internal Medicine Cardiovascular Disease
DX: I48.0 Paroxysmal atrial fibrillation (principal); E11.9 Type 2 diabetes mellitus without complications
CPT/HCPCS: 36415; 83036; 93270; 93272

== ENCOUNTER → 2021-01-13 11:18 | Outpatient (BNVA) | payer OTHER, SELFPAY | PROVIDERS: PCP Internal Medicine; Visit Provider Nurse Practitioner Family | DX: I48.91 Unspecified atrial fibrillation (principal) | CPT/HCPCS: 99212 ==

== ENCOUNTER 2021-01-24 15:19 | Emergency (ER) | payer OTHER, SELFPAY ==
--- NOTE | 2021-01-24 | ECG_ITS ---
Test Reason : CP Blood Pressure : / mmHG Vent. Rate : 150 BPM Atrial Rate : 122 BPM P-R Int : 000 ms QRS Dur : 090 ms QT Int : 308 ms P-R-T Axes : 000 066 096 degrees QTc Int : 486 ms Atrial fibrillation with rapid ventricular response Nonspecific ST and T wave abnormality Abnormal ECG When compared with ECG of 18-DEC-2020 10:44, No significant changes seen Referred By: Paris Moses Electronically Signed By:JOHN ROLAND
--- NOTE | 2021-01-24 | ECG_ITS ---
Test Reason : CHEST PAIN Blood Pressure : / mmHG Vent. Rate : 064 BPM Atrial Rate : 064 BPM P-R Int : 126 ms QRS Dur : 092 ms QT Int : 420 ms P-R-T Axes : 050 053 077 degrees QTc Int : 433 ms Normal sinus rhythm Normal ECG When compared with ECG of 24-JAN-2021 15:40, Sinus rhythm has replaced Atrial fibrillation Vent. rate has decreased BY 86 BPM Nonspecific T wave abnormality no longer evident in Inferior leads Nonspecific T wave abnormality no longer evident in Lateral leads Referred By: Paris Moses Electronically Signed By:JOHN ROLAND
--- NOTE | ~2021-01-24 | XR_ITS ---
EXAMINATION: XR CHEST CLINICAL INFORMATION: Atrial fibrillation with question of shortness of breath COMPARISON: 12/18/2020 TECHNIQUE: Frontal view of the chest was obtained. FINDINGS: No significant abnormality is noted involving the heart, lungs, mediastinum, bony thorax or soft tissues. XR/XR chest 1V IMPRESSION: Unremarkable examination.
[2021-01-24 15:39] VITALS: BP 113/85; PULSE 158; RESP 22; TEMP 36.6; O2SAT 97; BMI 31.1
[2021-01-24] MEDS: dilTIAZem HCL 50 MG/10 ML VIAL 20 MG IVPUSH (15:59)
[2021-01-24 17:04] VITALS: BP 105/62; PULSE 115
[2021-01-24] MEDS: Metoprolol Tartrate 5 MG/5 ML VIAL IVPUSH (17:04)
[2021-01-24] MEDS: 0.9 % Sodium Chloride 1,000 ML 999 ML IVCONT (17:04)
[2021-01-24 17:14] LABS: MANUAL DIFF FLAG NO
[2021-01-24 17:15] LABS: Basophils Absolute Auto 0.1 X10*3/uL (0.0-0.2); Basophils Percent Auto 0.7 % (0-2); Eosinophils Absolute Auto 0.2 X10*3/uL (0.0-0.4); Eosinophils Percent Auto 1.8 % (0-4); Hematocrit 51.1 % (42-52); Hemoglobin 16.7 g/dl (14.0-18.0); Imm Gran Abs Auto 0.08 X10*3/uL (0.00-0.03); Imm Gran Pct Auto 0.7 % (0.0-0.4); Lymphocytes Percent Auto 33.5 % (20-40); Mean Corpuscular HGB Conc 32.7 g/dl (31.0-36.0); Mean Corpuscular Hemoglobin 29.3 pg (27.0-33.0); Mean Corpuscular Volume 89.8 fL (80-98); Mean Platelet Volume 10.3 fL (9.4-12.4); Monocytes Absolute Auto 0.8 X10*3/uL (0.1-1.2); Monocytes Percent Auto 6.8 % (2-11); Neutrophils Absolute Auto 6.8 X10*3/uL (2.0-8.3); Neutrophils Percent Auto 56.5 % (45-73); Platelet Count 250 X10*3/uL (160-400); Red Blood Count 5.69 X10*6/uL (4.60-5.80); Red Cell Distribution Width 14.8 % (11.0-16.0)
--- NOTE | 2021-01-24 17:26 | ED.CHESTPAIN ---
HPI - Chest Pain General Chief Complaint: Chest Pain Stated Complaint: afib Time Seen by Provider: 01/24/21 15:42 Source: patient Mode of arrival: ambulatory Limitations: no limitations History of Present Illness HPI narrative: Patient comes emergency room complaining of atrial fibrillation. Patient is using a Holter monitor, this afternoon he had a phone call from Cardiology to let him know that he was in AFib with RVR. Patient states that he has been feeling tired since yesterday. Patient denies chest pain, complaining of abdominal pain. Patient states that the abdominal pain is chronic for him, started before his hernia surgery in mid December. Patient states that his pain is no different today. Patient takes Cardizem to control his heart rate, takes Eliquis. Patient states that he is compliant with his medication. Related Data Home Medications Medication Instructions Recorded Confirmed pramipexole 0.5 mg tablet 0.5 mg PO BID 06/30/20 01/16/21 blood sugar diagnostic #10 ea 10/11/20 01/16/21 cholecalciferol (vitamin D3) 1,000 unit PO DAILY 12/14/20 01/16/21 [Vitamin D3] Previous Rx's Medication Instructions Recorded metformin 500 mg tablet 1,000 mg PO BID #360 tab 08/10/20 apixaban 5 mg tablet 5 mg PO BID 30 Days #60 tab 01/10/21 diltiazem HCl 240 mg 240 mg PO DAILY #30 cap 01/10/21 capsule,extended release 24 hr empagliflozin 25 mg tablet 25 mg PO QAM #90 tab 01/16/21 Allergies Allergy/AdvReac Type Severity Reaction Status Date / Time No Known Allergies Allergy Verified 01/16/21 08:58 [No Known Allergies*] Review of Systems Review of Systems: Constitutional : No Weight loss, No Fever, No Chills, No Night Sweats, complaining of new onset fatigue for couple of days ENT/Mouth : No Hearing loss, No Ear Pain, No Nasal Congestion, No Sinus Pain, No Hoarseness, No sore throat, No Rhinorrhea, No Swallowing Difficulty Eyes: No Eye Pain, No Swelling, No Redness, No Foreign Body, No Discharge, No Vision Changes Cardiovascular : No Chest Pain, complaining of mild shortness of breath, No Orthopnea, No Edema, No Palpitations Respiratory : No Cough, No Sputum, No Wheezing, No Smoke Exposure, No Dyspnea Gastrointestinal : No Nausea, No Vomiting, No Diarrhea, No Constipation, No abdominal Pain, No Hematochezia, No Melena Genitourinary : no irregular bleeding, No Dysuria, No Urinary Frequency, No Hematuria, No Urinary Incontinence, No Urgency, No Flank Pain, No Urinary Flow Changes, No Hesitancy Musculoskeletal : No joint pain, No Myalgias, No Joint Swelling Skin : No Skin Lesions, No rash Neuro : No Weakness, No Numbness, No Paresthesias, No Loss of Consciousness, No Dizziness, No Headache Psych : No Anxiety/Panic, No Depression, No SI/HI/AH/VH, No Social Issues, Heme/Lymph: No Bruising, No Bleeding,No Lymphadenopathy Endocrine : No Polyuria, No Polydipsia, No Temperature Intolerance [facility] Past Medical History Medical History Atrial fibrillation Atrial fibrillation with rapid ventricular response Essential (primary) hypertension Incisional hernia Incisional hernia Opioid dependence with unspecified opioid-induced disorder Peripheral vascular disease due to secondary diabetes Tobacco use disorder Type 2 diabetes mellitus without complications Vitamin D deficiency Surgical History History of colostomy History of colostomy reversal History of dental surgery History of hernia repair History of inguinal hernia repair Family History Family History Father No problems noted. Mother No problems noted. Brother No problems noted. Brother No problems noted. Brother No problems noted. Sister No problems noted. Social History Social History Household Members: Significant Other Housing: Apartment Do you presently have visiting nurse or other home services: No Alcohol intake: unknown Smoking Status: Current every day smoker Tobacco Type: Cigarette Packs Per Day: 1 Cigarettes Per Day: 20.0 Years Smoked: 45 Second Hand Smoke Exposure: Yes Substance Use Type: Marijuana Advance Directives: No Advance Directives Information Provided: No service: No Current occupational status: disabled Physical Exam Vital Signs: Vital Signs: Last Vital Signs Temp 97.8 F 01/24/21 15:39 Pulse 115 H 01/24/21 17:04 Resp 22 H 01/24/21 15:39 BP 105/62 05/25/21 17:04 Pulse Ox 97 01/24/21 15:39 Body Mass Index 31.1 Appearance: Alert. Oriented X3. No acute distress. Eyes: Pupils equal, round and reactive to light. ENT: Pharynx normal. Neck: Normal inspection. Neck supple. No lymph nodes noted. No crepitus CVS: Irregularly irregular heart rate, heart rate approximately 150 Respiratory: No respiratory distress. Breath sounds normal. No Wheezing. No rales Abdomen: Soft and nontender. No rigidity. No distention. good BS x4 Skin: Skin warm and dry. Normal skin color. Normal skin turgor. Extremities: No lower extremity edema. No rash Neuro: Oriented X 3. No motor deficit. No sensory deficit. Moving all extermities. No slurred speech. Course Course Course Narrative: Patient received 20 mg of IV Cardizem, 5 mg IV push of metoprolol tartrate. Heart rate ranging between 110 and 130. Labs are pending. Patient will likely need another dose of Cardizem or metoprolol. I discussed the patient with Dr. Townsend who is taking sign-out. Patient has history of cardioversions, which may be needed. Once the labs are back, cardiology can be contacted to decide whether patient needs to be cardioverted in the ED or scheduled for tomorrow. At this time patient is stable, abdominal pain improving, no chest pain, no shortness of breath, blood pressure 105/62. Chest x-ray pending as well. Disposition pending MDM - Chest Pain Lab Data Result diagrams: 01/24/21 16:46 01/24/21 16:46 Labs: Lab Results 01/24/21 Range/Units 16:46 WBC 12.0 H (4.8-10.8) X10*3/uL RBC 5.69 (4.60-5.80) X10*6/uL Hgb 16.7 (14.0-18.0) g/dl Hct 51.1 (42-52) % MCV 89.8 (80-98) fL MCH 29.3 (27.0-33.0) pg MCHC 32.7 (31.0-36.0) g/dl RDW 14.8 (11.0-16.0) % Plt Count 250 (160-400) X10*3/uL MPV 10.3 (9.4-12.4) fL Immature Gran % (Auto) 0.7 H (0.0-0.4) % Neut % (Auto) 56.5 (45-73) % Lymph % (Auto) 33.5 (20-40) % [place] % (Auto) 6.8 (2-11) % Eos % (Auto) 1.8 (0-4) % Baso % (Auto) 0.7 (0-2) % Lymph # (Auto) 4.0 (1.2-4.9) X10*3/uL [place] # (Auto) 0.8 (0.1-1.2) X10*3/uL Eos # (Auto) 0.2 (0.0-0.4) X10*3/uL Baso # (Auto) 0.1 (0.0-0.2) X10*3/uL Abs Immat Gran (auto) 0.08 H (0.00-0.03) X10*3/uL Absolute Neuts (auto) 6.8 (2.0-8.3) X10*3/uL Absolute Nucleated RBC 0.000 (0.0-0.012) X10*3/uL Nucleated RBC % (auto) 0.0 (0.0-0.2) /100WBC Discharge Plan Discharge Clinical Impression: Atrial fibrillation with RVR Prescriptions: No Action metformin 500 mg tablet 1,000 mg PO BID Qty: 360 RF: 1 diltiazem HCl 240 mg capsule,extended release 24hr 240 mg PO DAILY Qty: 30 RF: 2 Eliquis 5 mg tablet 5 mg PO BID 30 Days Qty: 60 RF: 5 cholecalciferol (vitamin D3) [Vitamin D3] 25 mcg (1,000 unit) Capsule 1,000 unit PO DAILY RF: 0 pramipexole 0.5 mg tablet 0.5 mg PO BID RF: 0 (DME) blood sugar diagnostic Strip See Rx Instructions strip Not Applicable BID Qty: 10 RF: 0 Jardiance 25 mg tablet 25 mg PO QAM Qty: 90 RF: 1
[2021-01-24] MEDS: Morphine Sulfate 4 MG/ML CARTRIDGE IVPUSH (17:29)
[2021-01-24] MEDS: ondansetron HCL 4 MG/2 ML VIAL IVPUSH (17:29)
[2021-01-24 17:38] LABS: Alanine Aminotransferase 14 U/L (0-40); Albumin Level 4.3 g/dL (3.5-5.0); Alkaline Phosphatase 67 U/L (39-117); Anion Gap 16 (12-20); Aspartate Amino Transferase 16 U/L (5-37); Bilirubin Direct < 0.2 mg/dL (0.0-0.5); Bilirubin Total 0.5 mg/dL (0.0-1.0); Blood Urea Nitrogen 23 mg/dL (9-16); Calcium 9.3 mg/dL (8.4-10.2); Carbon Dioxide 22 mmol/L (22-29); Chloride 106 mmol/L (96-108); Creatinine Clr Calc Pharmacy 119.2; Estimated Glomerular Filt Rate > 60; Glucose Random 184 mg/dL (60-115); Potassium 4.2 mmol/L (3.3-5.1); Sodium 140 mmol/L (135-145); Total Protein 7.2 g/dL (6.5-8.0)
[2021-01-24 17:44] LABS: B Type Natriuretic Peptide 47 pg/mL (<100); Troponin-I High Sensitivity 4.8 ng/L (<3.5-35.0)
[2021-01-24 18:10] VITALS: BP 111/61; PULSE 132; RESP 20; TEMP 36.7; O2SAT 94
== END 2021-01-24 19:26 | disposition home or self-care (01) ==
PROVIDERS: Emergency Provider Emergency Medicine; PCP Internal Medicine
DX: I48.20 Chronic atrial fibrillation, unspecified (principal); R10.9 Unspecified abdominal pain; F17.210 Nicotine dependence, cigarettes, uncomplicated; F12.90 Cannabis use, unspecified, uncomplicated; I10 Essential (primary) hypertension; F11.29 Opioid dependence with unspecified opioid-induced disorder; E11.9 Type 2 diabetes mellitus without complications; Z79.01 Long term (current) use of anticoagulants; Z79.84 Long term (current) use of oral hypoglycemic drugs; Z79.899 Other long term (current) drug therapy
CPT/HCPCS: 36415; 71045; 80048; 80076; 83880; 84484; 85025; 93005; 96361; 96374; 96375; 99283; 99284; J2270; J2405

== ENCOUNTER 2021-02-01 08:50 | Inpatient (IN) | payer OTHER, SELFPAY ==
[2021-02-01] VITALS (18 sets, daily range): BP systolic 98–126; BP diastolic 62–89; PULSE 82–159; RESP 16–20; TEMP 36.2–37.1; O2SAT 94–96; BMI 32.0
--- NOTE | 2021-02-01 | ECG_ITS ---
Test Reason : AFIB Blood Pressure : / mmHG Vent. Rate : 157 BPM Atrial Rate : 156 BPM P-R Int : 000 ms QRS Dur : 086 ms QT Int : 298 ms P-R-T Axes : 000 060 019 degrees QTc Int : 481 ms Atrial fibrillation with rapid ventricular response ST & T wave abnormality, consider inferior ischemia Abnormal ECG When compared with ECG of 24-JAN-2021 18:47, Atrial fibrillation has replaced Sinus rhythm Vent. rate has increased BY 93 BPM Non-specific change in ST segment in Inferior leads ST now depressed in Anterior leads T wave inversion now evident in Inferior leads Referred By: Richelle Arnold Electronically Signed By:Cam Malcolm
--- NOTE | ~2021-02-01 | XR_ITS ---
EXAMINATION: XR CHEST CLINICAL INFORMATION: Palpitations COMPARISON: None TECHNIQUE: Portable upright AP view of the chest was obtained. FINDINGS: The lungs are clear. The vascularity is normal. There is no vascular congestion, airspace consolidation, airspace opacity, or effusion. No pneumothorax or pleural reaction. The heart is normal in size and the hilar and mediastinal contours are unremarkable. No visible acute bony abnormality. XR/XR chest 1V IMPRESSION: Unremarkable examination.
--- NOTE | 2021-02-01 09:03 | ED.ARRPALP ---
HPI - Arrhythmia/Palpitations General Chief Complaint: Arrhythmia/Palpitations Stated Complaint: a-fib Time Seen by Provider: 02/01/21 09:00 Source: patient Mode of arrival: ambulatory Limitations: no limitations History of Present Illness HPI narrative: 55 yo male with hx of ventral hernias that trigger intermittent bouts of pain, afib on dilt 240 and eliquis, DM comes in again with afib with rvr patient's events are usually triggered after a bout of abdominal pain - he still drinks 20 ounces of coffee a day, reports not feeling well and palpitations this AM, compliance with medications MD complaint: rapid heart beat, heart racing and palpitations Onset (ago): day(s) (possibly this AM but didn't feel well last night) Duration: constant Severity: similar to previous episodes Context: occurred during rest (usually helps if he gets a pain in his abdomen) Arrhythmia history: atrial fibrillation and on anti-coagulants Associated symptoms: anxiety Treatments prior to arrival: calcium channel greyson Related Data Home Medications Medication Instructions Recorded Confirmed pramipexole 0.5 mg tablet 0.5 mg PO BID 06/30/20 02/01/21 blood sugar diagnostic #10 ea 10/11/20 01/16/21 cholecalciferol (vitamin D3) 1,000 unit PO DAILY 12/14/20 02/01/21 [Vitamin D3] Previous Rx's Medication Instructions Recorded metformin 500 mg tablet 1,000 mg PO BID #360 tab 08/10/20 apixaban 5 mg tablet 5 mg PO BID 30 Days #60 tab 01/10/21 diltiazem HCl 240 mg 240 mg PO DAILY #30 cap 01/10/21 capsule,extended release 24 hr empagliflozin 25 mg tablet 25 mg PO QAM #90 tab 01/16/21 Allergies Allergy/AdvReac Type Severity Reaction Status Date / Time No Known Allergies Allergy Verified 02/01/21 09:30 [No Known Allergies*] Review of Systems Review of Systems: Constitutional : No Fever, No Chills ENT/Mouth : No sore throat, No Rhinorrhea, No Swallowing Difficulty Eyes: No Eye Pain, No Swelling, No Redness Cardiovascular : No Chest Pain, positive SOB, No Orthopnea, no Edema, pos palpitations Respiratory : No Cough, No Sputum, No Wheezing, positive dyspnea Gastrointestinal : No Nausea, No Vomiting, No Diarrhea, No abdominal Pain, No Hematochezia, No Melena Genitourinary : No Dysuria, No Urinary Frequency, No Hematuria Musculoskeletal : No joint pain, No Myalgias Skin : No Skin Lesions, No rash Neuro : No Weakness, No Numbness, No Dizziness, No Headache Psych : No Anxiety/Panic, No Depression Heme/Lymph: No Bruising, No Lymphadenopathy Endocrine : No Polyuria, No Polydipsia All other systems reviewed and are negative [facility] Past Medical History Attestation statement: The following information was validated with the patient. Medical History Atrial fibrillation Atrial fibrillation with rapid ventricular response Essential (primary) hypertension Incisional hernia Incisional hernia Opioid dependence with unspecified opioid-induced disorder Peripheral vascular disease due to secondary diabetes Tobacco use disorder Type 2 diabetes mellitus without complications Vitamin D deficiency Surgical History History of colostomy History of colostomy reversal History of dental surgery History of hernia repair History of inguinal hernia repair Family History Family History Father No problems noted. Mother No problems noted. Brother No problems noted. Brother No problems noted. Brother No problems noted. Sister No problems noted. Social History Social History Household Members: Significant Other Housing: Apartment Do you presently have visiting nurse or other home services: No Alcohol intake: unknown Cigarette Packs Per Day: 1 Cigarettes Per Day: 20.0 Years Smoked: 45 Second Hand Smoke Exposure: Yes Substance Use Type: Marijuana Advance Directives: Yes Advance Directives Information Provided: Yes Advance Directives on File: No service: No Current occupational status: disabled Physical Exam Vital Signs: Vital Signs: Last Vital Signs Temp 98.7 F 02/01/21 09:28 Pulse 141 H 02/01/21 10:31 Resp 18 02/01/21 10:31 BP 107/66 02/01/21 10:31 Pulse Ox 95 02/01/21 10:31 Body Mass Index 32.0 Appearance: Alert. Oriented X3. No acute distress. Eyes: Pupils equal, round and reactive to light. ENT: Pharynx normal. Neck: Normal inspection. Neck supple. CVS: irregular and tachycardic heart rate and rhythm. Pulses normal. Respiratory: No respiratory distress. Breath sounds normal. Abdomen: Soft and nontender. new healing incision in LLQ Skin: Skin warm and dry. Normal skin color. Normal skin turgor. Extremities: No lower extremity edema. No calf ttp Neuro: Oriented X 3. No motor deficit. No sensory deficit. Course Course Course Narrative: still on dilt gtt, at this time will admit for further management MDM - Arrhythmia/Palpitations MDM Narrative Medical decision making narrative: 55 yo male with hx of ventral hernias that trigger intermittent bouts of pain, afib on dilt 240 and eliquis, DM comes in again with afib with rvr patient's events are usually triggered after a bout of abdominal pain - he still drinks 20 ounces of coffee a day, reports not feeling well and palpitations this AM, compliance with medications at this time patient will need IV dilt bolus and possible drip - patient also requesting pain medication which seems chronic his abdomen is overall benign, dispo per results and findings. Lab Data Result diagrams: 02/01/21 09:26 02/01/21 09:26 Labs: Lab Results 02/01/21 02/01/21 02/01/21 Range/Units 09:26 09:26 09:26 WBC 12.8 H (4.8-10.8) X10*3/uL RBC 5.65 (4.60-5.80) X10*6/uL Hgb 16.7 (14.0-18.0) g/dl Hct 50.1 (42-52) % MCV 88.7 (80-98) fL MCH 29.6 (27.0-33.0) pg MCHC 33.3 (31.0-36.0) g/dl RDW 14.6 (11.0-16.0) % Plt Count 267 (160-400) X10*3/uL MPV 10.0 (9.4-12.4) fL Immature Gran % (Auto) 0.6 H (0.0-0.4) % Neut % (Auto) 63.0 (45-73) % Lymph % (Auto) 28.3 (20-40) % [place] % (Auto) 6.3 (2-11) % Eos % (Auto) 1.3 (0-4) % Baso % (Auto) 0.5 (0-2) % Lymph # (Auto) 3.6 (1.2-4.9) X10*3/uL [place] # (Auto) 0.8 (0.1-1.2) X10*3/uL Eos # (Auto) 0.2 (0.0-0.4) X10*3/uL Baso # (Auto) 0.1 (0.0-0.2) X10*3/uL Abs Immat Gran (auto) 0.08 H (0.00-0.03) X10*3/uL Absolute Neuts (auto) 8.0 (2.0-8.3) X10*3/uL Absolute Nucleated RBC 0.000 (0.0-0.012) X10*3/uL Nucleated RBC % (auto) 0.0 (0.0-0.2) /100WBC PT (10.8-13.0) SEC INR (0.9-1.1) APTT (24.1-38.0) SEC Sodium 141 (135-145) mmol/L Potassium 3.7 (3.3-5.1) mmol/L Chloride 103 (96-108) mmol/L Carbon Dioxide 25 (22-29) mmol/L Anion Gap 17 (12-20) BUN 17 H (9-16) mg/dL Creatinine 0.92 (0.5-1.4) mg/dL Estim Creat Clear Calc 99.2 Estimated GFR > 60 Random Glucose 221 H (60-115) mg/dL Calcium 10.0 D (8.4-10.2) mg/dL Magnesium 2.3 (1.6-2.6) mg/dL Total Bilirubin 0.5 (0.0-1.0) mg/dL Direct Bilirubin < 0.2 (0.0-0.5) mg/dL AST 19 (5-37) U/L ALT 17 (0-40) U/L Alkaline Phosphatase 75 (39-117) U/L Troponin I High Sens (<3.5-35.0) ng/L B-Natriuretic Peptide 11 (<100) pg/mL Total Protein 7.5 (6.5-8.0) g/dL Albumin 4.6 (3.5-5.0) g/dL TSH (0.32-4.0) uIU/mL COVID-19 ([facility]) (Negative) COVID-19 Clin Com 02/01/21 02/01/21 02/01/21 Range/Units 09:26 09:26 09:26 WBC (4.8-10.8) X10*3/uL RBC (4.60-5.80) X10*6/uL Hgb (14.0-18.0) g/dl Hct (42-52) % MCV (80-98) fL MCH (27.0-33.0) pg MCHC (31.0-36.0) g/dl RDW (11.0-16.0) % Plt Count (160-400) X10*3/uL MPV (9.4-12.4) fL Immature Gran % (Auto) (0.0-0.4) % Neut % (Auto) (45-73) % Lymph % (Auto) (20-40) % [place] % (Auto) (2-11) % Eos % (Auto) (0-4) % Baso % (Auto) (0-2) % Lymph # (Auto) (1.2-4.9) X10*3/uL [place] # (Auto) (0.1-1.2) X10*3/uL Eos # (Auto) (0.0-0.4) X10*3/uL Baso # (Auto) (0.0-0.2) X10*3/uL Abs Immat Gran (auto) (0.00-0.03) X10*3/uL Absolute Neuts (auto) (2.0-8.3) X10*3/uL Absolute Nucleated RBC (0.0-0.012) X10*3/uL Nucleated RBC % (auto) (0.0-0.2) /100WBC PT 12.3 (10.8-13.0) SEC INR 1.0 (0.9-1.1) APTT 44.1 H (24.1-38.0) SEC Sodium (135-145) mmol/L Potassium (3.3-5.1) mmol/L Chloride (96-108) mmol/L Carbon Dioxide (22-29) mmol/L Anion Gap (12-20) BUN (9-16) mg/dL Creatinine (0.5-1.4) mg/dL Estim Creat Clear Calc Estimated GFR Random Glucose (60-115) mg/dL Calcium (8.4-10.2) mg/dL Magnesium (1.6-2.6) mg/dL Total Bilirubin (0.0-1.0) mg/dL Direct Bilirubin (0.0-0.5) mg/dL AST (5-37) U/L ALT (0-40) U/L Alkaline Phosphatase (39-117) U/L Troponin I High Sens < 3.5 (<3.5-35.0) ng/L B-Natriuretic Peptide (<100) pg/mL Total Protein (6.5-8.0) g/dL Albumin (3.5-5.0) g/dL TSH (0.32-4.0) uIU/mL COVID-19 ([facility]) Negative (Negative) COVID-19 Clin Com See Note 02/01/21 Range/Units 09:26 WBC (4.8-10.8) X10*3/uL RBC (4.60-5.80) X10*6/uL Hgb (14.0-18.0) g/dl Hct (42-52) % MCV (80-98) fL MCH (27.0-33.0) pg MCHC (31.0-36.0) g/dl RDW (11.0-16.0) % Plt Count (160-400) X10*3/uL MPV (9.4-12.4) fL Immature Gran % (Auto) (0.0-0.4) % Neut % (Auto) (45-73) % Lymph % (Auto) (20-40) % [place] % (Auto) (2-11) % Eos % (Auto) (0-4) % Baso % (Auto) (0-2) % Lymph # (Auto) (1.2-4.9) X10*3/uL [place] # (Auto) (0.1-1.2) X10*3/uL Eos # (Auto) (0.0-0.4) X10*3/uL Baso # (Auto) (0.0-0.2) X10*3/uL Abs Immat Gran (auto) (0.00-0.03) X10*3/uL Absolute Neuts (auto) (2.0-8.3) X10*3/uL Absolute Nucleated RBC (0.0-0.012) X10*3/uL Nucleated RBC % (auto) (0.0-0.2) /100WBC PT (10.8-13.0) SEC INR (0.9-1.1) APTT (24.1-38.0) SEC Sodium (135-145) mmol/L Potassium (3.3-5.1) mmol/L Chloride (96-108) mmol/L Carbon Dioxide (22-29) mmol/L Anion Gap (12-20) BUN (9-16) mg/dL Creatinine (0.5-1.4) mg/dL Estim Creat Clear Calc Estimated GFR Random Glucose (60-115) mg/dL Calcium (8.4-10.2) mg/dL Magnesium (1.6-2.6) mg/dL Total Bilirubin (0.0-1.0) mg/dL Direct Bilirubin (0.0-0.5) mg/dL AST (5-37) U/L ALT (0-40) U/L Alkaline Phosphatase (39-117) U/L Troponin I High Sens (<3.5-35.0) ng/L B-Natriuretic Peptide (<100) pg/mL Total Protein (6.5-8.0) g/dL Albumin (3.5-5.0) g/dL TSH 0.42 (0.32-4.0) uIU/mL COVID-19 ([facility]) (Negative) COVID-19 Clin Com ECG Data Attestation: I personally reviewed and interpreted this ECG as follows: ECG interpretation date: 02/01/21 ECG interpretation time: 09:05 Interpretation: Rate: 157 Rhythm: afib with RVR [place]: normal Normal QRS complex. ST T wave : nonspecific no DARRICK qTC: normal prior studies: changed from prior The study has been interpreted contemporaneously by me. . Critical Care Time Critical Care Time Critical Care Time: Yes Total Critical Care Time: 35 Attestation: review of notes, repeat IV dilt, diltiazem gtt I attest to this time spent taking care of the patient Discharge Plan Discharge Clinical Impression: Atrial fibrillation Patient Disposition: Admitted As Inpatient Prescriptions: No Action metformin 500 mg tablet 1,000 mg PO BID Qty: 360 RF: 1 diltiazem HCl 240 mg capsule,extended release 24hr 240 mg PO DAILY Qty: 30 RF: 2 Eliquis 5 mg tablet 5 mg PO BID 30 Days Qty: 60 RF: 5 cholecalciferol (vitamin D3) [Vitamin D3] 25 mcg (1,000 unit) Capsule 1,000 unit PO DAILY RF: 0 pramipexole 0.5 mg tablet 0.5 mg PO BID RF: 0 (DME) blood sugar diagnostic Strip See Rx Instructions strip Not Applicable BID Qty: 10 RF: 0 Jardiance 25 mg tablet 25 mg PO QAM Qty: 90 RF: 1
[2021-02-01] MEDS: dilTIAZem HCL 50 MG/10 ML VIAL 10 MG IVPUSH (09:10)
[2021-02-01 09:34] LABS: MANUAL DIFF FLAG NO
[2021-02-01] MEDS: fentaNYL citrate/PF 100 MCG/2 ML VIAL 50 MCG IVPUSH (09:35)
[2021-02-01 09:39] LABS: Basophils Absolute Auto 0.1 X10*3/uL (0.0-0.2); Basophils Percent Auto 0.5 % (0-2); Eosinophils Absolute Auto 0.2 X10*3/uL (0.0-0.4); Eosinophils Percent Auto 1.3 % (0-4); Hematocrit 50.1 % (42-52); Hemoglobin 16.7 g/dl (14.0-18.0); Imm Gran Abs Auto 0.08 X10*3/uL (0.00-0.03); Imm Gran Pct Auto 0.6 % (0.0-0.4); Lymphocytes Absolute Auto 3.6 X10*3/uL (1.2-4.9); Lymphocytes Percent Auto 28.3 % (20-40); Mean Corpuscular HGB Conc 33.3 g/dl (31.0-36.0); Mean Corpuscular Hemoglobin 29.6 pg (27.0-33.0); Mean Corpuscular Volume 88.7 fL (80-98); Monocytes Absolute Auto 0.8 X10*3/uL (0.1-1.2); Monocytes Percent Auto 6.3 % (2-11); Platelet Count 267 X10*3/uL (160-400); Red Blood Count 5.65 X10*6/uL (4.60-5.80); Red Cell Distribution Width 14.6 % (11.0-16.0); White Blood Count 12.8 X10*3/uL (4.8-10.8)
[2021-02-01 09:48] LABS: Prothrombin Time 12.3 SEC (10.8-13.0)
[2021-02-01] MEDS: dilTIAZem HCL 125 MG in 0.9 % Sodium Chloride 100 ML 10 MG IVCONT (09:51)
[2021-02-01 09:52] LABS: COVID-19 Test Negative (Negative); Partial Thromboplastin Time 44.1 SEC (24.1-38.0)
--- NOTE | 2021-02-01 09:55 | PC.NURSE ---
Patient states lower abdominal pain is a 9/10 post fentanyl. HR remains 140-160 in afib via tele. cardizem drip started at this time.
[2021-02-01 10:10] LABS: B Type Natriuretic Peptide 11 pg/mL (<100); Troponin-I High Sensitivity < 3.5 ng/L (<3.5-35.0)
[2021-02-01 10:19] LABS: Alanine Aminotransferase 17 U/L (0-40); Albumin Level 4.6 g/dL (3.5-5.0); Alkaline Phosphatase 75 U/L (39-117); Anion Gap 17 (12-20); Aspartate Amino Transferase 19 U/L (5-37); Bilirubin Direct < 0.2 mg/dL (0.0-0.5); Bilirubin Total 0.5 mg/dL (0.0-1.0); Blood Urea Nitrogen 17 mg/dL (9-16); Carbon Dioxide 25 mmol/L (22-29); Chloride 103 mmol/L (96-108); Creatinine Clr Calc Pharmacy 99.2; Estimated Glomerular Filt Rate > 60; Glucose Random 221 mg/dL (60-115); Magnesium 2.3 mg/dL (1.6-2.6); Potassium 3.7 mmol/L (3.3-5.1); Sodium 141 mmol/L (135-145); Total Protein 7.5 g/dL (6.5-8.0)
[2021-02-01] MEDS: oxyCODONE HCl Immed Release 15 MG TABLET PO (10:30)
[2021-02-01 10:32] LABS: Thyroid Stimulating Hormone 0.42 uIU/mL (0.32-4.0)
--- NOTE | 2021-02-01 11:35 | PC.NURSE ---
pateint reports abdominal pain has decreased to a 5/10. remains in Afib HR 115-140, continues on cardizem drip at 15mg/hr. BP stable
--- NOTE | 2021-02-01 14:20 | PC.NURSE ---
BP 98/77, HR mid 90's to 120's via tele. cardizem drip decreased to 10mg/hr
[2021-02-01 17:23] LABS: Glucose, Whole Blood 101 mg/dL (60-115)
--- NOTE | 2021-02-01 17:41 | PC.NURSE ---
Addendum entered by Clarke Hilton RN 02/01/21 18:38: cardizem drip titrated up to 15mg/hr as HR kept reaching 145bpm. Original Note: Pt A&Ox3 arrived to unit 1700 in AFIB hr 90-115 with cardizem drip at 10mg/hr denies chest pain, palp., sob, BP 122/83, POC glucose 101, dinner order taken.
[2021-02-01] MEDS: dilTIAZem HCL 125 MG in 0.9 % Sodium Chloride 100 ML 15 MG IVCONT (18:06)
--- NOTE | 2021-02-01 18:14 | PM.IMHP ---
History of Present Illness Date of Service: 02/01/21 Chief Complaint: Palpitation, chest heaviness A 55 years old male with PMH of atrial fibrillation, smoking, HTN, PVD, type 2 diabetes among others who presented to the hospital complaining of difficulty breathing and shortness of breath associated palpitation. The patient reports that his symptoms started earlier this morning around 930 when he woke up after having couple of coffee cups. He started the day of palpitation, chest heaviness and difficulty breathing while sitting and with very short distances. His symptoms were similar to a previous episode where he ended up in the emergency. The patient decided to come to the emergency and was found to be in atrial fibrillation with RVR. In the emergency he was started on the Cardizem drip with fair response as his heart rate brought down from 1 80s to 130s. Admitted further evaluation and treatment. Review of Systems Review of Systems: No fever, chills or weakness Chest heaviness, complaining mainly of palpitation Dyspnea with exertion No abdominal pain, nausea or vomiting No urinary symptoms No any rash or wounds PMFSH Medical History Atrial fibrillation Atrial fibrillation with rapid ventricular response Essential (primary) hypertension Incisional hernia Incisional hernia Opioid dependence with unspecified opioid-induced disorder Peripheral vascular disease due to secondary diabetes Tobacco use disorder Type 2 diabetes mellitus without complications Vitamin D deficiency Family History Father No problems noted. Mother No problems noted. Brother No problems noted. Brother No problems noted. Brother No problems noted. Sister No problems noted. Surgical History History of colostomy History of colostomy reversal History of dental surgery History of hernia repair History of inguinal hernia repair Social History Household Members: Spouse Housing: Apartment Do you presently have visiting nurse or other home services: No Alcohol intake: unknown Patient Tobacco Use Status: Current everyday Tobacco user Tobacco use type: Cigarette Cigarette Packs Per Day: 1 Cigarettes Per Day: 20.0 Years Smoked: 40 Smoked in Last 30 Days: Yes e-Cigarette/Vaping Use: Never Used Patient Interested in Nicotine Replacement: No Patient Given Instructions on How to Stop Smoking: No (denied) Second Hand Smoke Exposure: No Use of substances other than those prescribed or required for medical reasons: Yes Substance Use Type: Marijuana Substance Use Frequency: Occasionally Last Used Substance: Weeks (ago) Currently Displaying Signs/Symptoms of Drug Intoxication Withdrawal: No Have you been hit, kicked, punched, or otherwise hurt by someone within the past year? If so, by whom?: No Do you feel safe in your current relationship?: Yes Is there a partner from a previous relationship who is making you feel unsafe now?: No Are you made to feel afraid or neglected: No Advance Directives: Yes Advance Directives Information Provided: Yes Advance Directives on File: No Advance Directives Date on File: 02/01/21 Do you have thoughts of harming others: None Do you have a plan to hurt others: No Plan Recently lost weight without trying: No Nutrition Risks: No Nutritional Risk service: No Current occupational status: disabled Meds Allergies Allergy/AdvReac Type Severity Reaction Status Date / Time No Known Allergies Allergy Verified 02/01/21 09:30 [No Known Allergies*] Active Medications: Current Medications Generic Name Dose Route Start Last Admin Trade Name Freq PRN Reason Stop Dose Admin Acetaminophen 650 mg 02/01/21 17:09 Acetaminophen 325 Mg Tablet PO Q6H PRN Pain, Mild (Pain Scale 1-3) Apixaban 5 mg 02/01/21 21:00 Apixaban 5 Mg Tablet PO BID [facility] Diltiazem HCl 240 mg 02/02/21 09:00 Diltiazem Hcl Cd 240 Mg Cap.Er.Deg PO DAILY [facility] Protocol Diltiazem HCl 125 mg/ Sodium 125 mls @ 0 mls/hr 02/01/21 09:15 02/01/21 18:06 Chloride IVCONT 15 mg/hr .Q0M JEAN-PIERRE 15 mls/hr Administration Protocol Per Protocol Insulin Human Lispro 0 unit 02/01/21 17:09 02/01/21 17:21 Insulin Lispro 100 Unit/Ml 3 Ml Vial SUBCUT Not Given QIDACHS [facility] Protocol Ondansetron HCl 4 mg 02/01/21 17:09 Ondansetron Hcl 4 Mg/2 Ml Vial IVPUSH Q8H PRN Nausea and Vomiting Pharmacy Consult 1 each 02/01/21 09:00 Consult Rx Perform Med Rec MISCELLANE ONCE PRN Consult order Sodium Chloride 3 ml 02/01/21 17:09 02/01/21 17:21 0.9 % Sodium Chloride Flush 3 Ml Syringe IVFLUSH Not Given QSHIFT [facility] Vitamin D 25 mcg 02/02/21 09:00 Cholecalciferol (Vitamin D3) 25 Mcg Tablet PO DAILY [facility] Home Medications Medication Instructions Recorded Confirmed Last Taken Type pramipexole 0.5 mg tablet 0.5 mg PO BID 06/30/20 02/01/21 02/01/21 History blood sugar diagnostic #10 ea 10/11/20 01/16/21 Unknown History cholecalciferol (vitamin D3) 1,000 unit PO DAILY 12/14/20 02/01/21 02/01/21 History [Vitamin D3] Physical Exam Vital Signs and Narrative: Vital Signs: Last Vital Signs Temp 97.7 F 02/01/21 16:50 Pulse 96 02/01/21 16:50 Resp 17 02/01/21 16:50 BP 122/83 02/01/21 16:50 Pulse Ox 96 02/01/21 16:50 Body Mass Index 32.0 Const: Other: TheConstitutional : Alert, oriented, not in distress Neck : Normal inspection, Supple Cardiovascular : Irregular irregular, S1 S2, no lower extremity edema, tachycardia Respiratory : Good bilateral air entry, no crackles, wheezes or rhonchi Gastrointestinal: soft, lax, Normal bowel sounds, Non tender Skin : Warm/Dry, No rash Neurological : Alert & oriented x3, No focal deficit Results Labs CBC and Chem 7: 02/01/21 09:26 02/01/21 09:26 Labs: Laboratory Results - last 24 hr 02/01/21 02/01/21 02/01/21 09:26 09:26 09:26 MCV 88.7 MCH 29.6 MCHC 33.3 RDW 14.6 Plt Count 267 MPV 10.0 Immature Gran % (Auto) 0.6 H Neut % (Auto) 63.0 Lymph % (Auto) 28.3 [place] % (Auto) 6.3 Eos % (Auto) 1.3 Baso % (Auto) 0.5 Lymph # (Auto) 3.6 [place] # (Auto) 0.8 Eos # (Auto) 0.2 Baso # (Auto) 0.1 Abs Immat Gran (auto) 0.08 H Absolute Neuts (auto) 8.0 Absolute Nucleated RBC 0.000 Nucleated RBC % (auto) 0.0 PT INR APTT Anion Gap 17 Estim Creat Clear Calc 99.2 Estimated GFR > 60 POC Glucose Random Glucose 221 H Calcium 10.0 D Magnesium 2.3 Total Bilirubin 0.5 Direct Bilirubin < 0.2 AST 19 ALT 17 Alkaline Phosphatase 75 Troponin I High Sens B-Natriuretic Peptide 11 Total Protein 7.5 Albumin 4.6 TSH COVID-19 ([facility]) COVID-19 Clin Com 02/01/21 02/01/21 02/01/21 09:26 09:26 09:26 MCV MCH MCHC RDW Plt Count MPV Immature Gran % (Auto) Neut % (Auto) Lymph % (Auto) [place] % (Auto) Eos % (Auto) Baso % (Auto) Lymph # (Auto) [place] # (Auto) Eos # (Auto) Baso # (Auto) Abs Immat Gran (auto) Absolute Neuts (auto) Absolute Nucleated RBC Nucleated RBC % (auto) PT 12.3 INR 1.0 APTT 44.1 H Anion Gap Estim Creat Clear Calc Estimated GFR POC Glucose Random Glucose Calcium Magnesium Total Bilirubin Direct Bilirubin AST ALT Alkaline Phosphatase Troponin I High Sens < 3.5 B-Natriuretic Peptide Total Protein Albumin TSH COVID-19 ([facility]) Negative COVID-19 Clin Com See Note 02/01/21 02/01/21 09:26 17:19 MCV MCH MCHC RDW Plt Count MPV Immature Gran % (Auto) Neut % (Auto) Lymph % (Auto) [place] % (Auto) Eos % (Auto) Baso % (Auto) Lymph # (Auto) [place] # (Auto) Eos # (Auto) Baso # (Auto) Abs Immat Gran (auto) Absolute Neuts (auto) Absolute Nucleated RBC Nucleated RBC % (auto) PT INR APTT Anion Gap Estim Creat Clear Calc Estimated GFR POC Glucose 101 Random Glucose Calcium Magnesium Total Bilirubin Direct Bilirubin AST ALT Alkaline Phosphatase Troponin I High Sens B-Natriuretic Peptide Total Protein Albumin TSH 0.42 COVID-19 ([facility]) COVID-19 Clin Com Imaging Radiologist's Impressions: Impressions Chest X-Ray 02/01/21 09:01 IMPRESSION: Unremarkable examination. Assessment and Plan (1) Atrial fibrillation with rapid ventricular response: Status: Acute (2) Tobacco use disorder: Status: Acute (3) Essential (primary) hypertension: Status: Acute A 55 years old male with PMH of atrial fibrillation, smoking, HTN, PVD, type 2 diabetes among others who presented to the hospital complaining of difficulty breathing and shortness of breath associated palpitation. 55M presented with abdominal pain from known LLQ ventral hernia, and afib with rvr AFib with rvr Started on Cardizem drip continue oral cardizem 240 mg daily Discontinue anticoagulation To do Cardiology consult avoid caffeine Hyperglycemia type 2 diabetes hold orals SSI HTN cardizem hydralazine DVT PPX Eliquis
[2021-02-01 20:01] LABS: Glucose, Whole Blood 178 mg/dL (60-115)
[2021-02-01] MEDS: 0.9 % Sodium Chloride 500 ML IV (20:12)
[2021-02-01] MEDS: Apixaban 5 MG TABLET PO (20:12)
[2021-02-01] MEDS: Pramipexole Di-HCL 0.25 MG TABLET 0.5 MG PO (20:12)
[2021-02-01] MEDS: Insulin Lispro 100 UNIT/ML 3 ML VIAL SUBCUT (20:12)
[2021-02-01 22:06] LABS: Troponin-I High Sensitivity 4.7 ng/L (<3.5-35.0)
--- NOTE | 2021-02-01 22:08 | PC.NURSE ---
2030 pt c/o chest tightness and diaphoretic. vitals stable at 112/73 98% RA T 97.3 md notified, ekg and high sensitivity troponin lab ordered. pt HR ranging from 100-143 during this time, cardizem gtt was running at 10mg/hr
[2021-02-02] VITALS (7 sets, daily range): BP systolic 100–130; BP diastolic 68–79; PULSE 60–76; RESP 18–20; TEMP 36.5–36.9; O2SAT 94–97
[2021-02-02] MEDS: Morphine Sulfate 4 MG/ML CARTRIDGE IVPUSH (00:13)
[2021-02-02] MEDS: 0.9 % Sodium Chloride Flush 3 ML SYRINGE IVFLUSH ×4 (00:15→23:55)
--- NOTE | 2021-02-02 01:50 | ECG_ITS ---
Test Reason : chest pain, diaphoretic Blood Pressure : / mmHG Vent. Rate : 065 BPM Atrial Rate : 065 BPM P-R Int : 136 ms QRS Dur : 096 ms QT Int : 418 ms P-R-T Axes : 065 061 085 degrees QTc Int : 434 ms Normal sinus rhythm Nonspecific ST and T wave abnormality Abnormal ECG When compared with ECG of 01-FEB-2021 08:57, Sinus rhythm has replaced Atrial fibrillation Vent. rate has decreased BY 92 BPM T wave inversion no longer evident in Inferior leads Nonspecific T wave abnormality, worse in Lateral leads Referred By: Tacho Ken Electronically Signed By:Cam Malcolm
--- NOTE | 2021-02-02 02:00 | MHC.PIE ---
P.CONVERTED TO SR I. RHYTHM CONVERTED TO SR.STAT EKG DONE.HR 60'S. UPDATED.ORDER TO STOP CARDIZEM DRIP GIVEN.PT UPDATED. E.CONT TO MONITOR.
[2021-02-02 06:25] LABS: MANUAL DIFF FLAG NO
[2021-02-02 06:43] LABS: Basophils Absolute Auto 0.1 X10*3/uL (0.0-0.2); Basophils Percent Auto 0.7 % (0-2); Eosinophils Absolute Auto 0.2 X10*3/uL (0.0-0.4); Eosinophils Percent Auto 1.9 % (0-4); Hematocrit 48.3 % (42-52); Hemoglobin 15.9 g/dl (14.0-18.0); Imm Gran Abs Auto 0.09 X10*3/uL (0.00-0.03); Imm Gran Pct Auto 0.8 % (0.0-0.4); Lymphocytes Absolute Auto 3.8 X10*3/uL (1.2-4.9); Lymphocytes Percent Auto 32.1 % (20-40); Mean Corpuscular HGB Conc 32.9 g/dl (31.0-36.0); Mean Corpuscular Hemoglobin 29.4 pg (27.0-33.0); Mean Corpuscular Volume 89.3 fL (80-98); Mean Platelet Volume 10.1 fL (9.4-12.4); Monocytes Percent Auto 8.1 % (2-11); Neutrophils Absolute Auto 6.7 X10*3/uL (2.0-8.3); Neutrophils Percent Auto 56.4 % (45-73); Platelet Count 256 X10*3/uL (160-400); Red Blood Count 5.41 X10*6/uL (4.60-5.80); Red Cell Distribution Width 14.9 % (11.0-16.0); White Blood Count 11.8 X10*3/uL (4.8-10.8)
[2021-02-02 06:55] LABS: Anion Gap 14 (12-20); Blood Urea Nitrogen 17 mg/dL (9-16); Calcium 8.9 mg/dL (8.4-10.2); Carbon Dioxide 25 mmol/L (22-29); Chloride 107 mmol/L (96-108); Creatinine Clr Calc Pharmacy 117.1; Estimated Glomerular Filt Rate > 60; Glucose Random 100 mg/dL (60-115); Potassium 4.1 mmol/L (3.3-5.1); Sodium 142 mmol/L (135-145)
[2021-02-02 07:20] LABS: Glucose, Whole Blood 117 mg/dL (60-115)
[2021-02-02] MEDS: dilTIAZem HCL CD 240 MG CAP.ER.DEG PO (08:29)
[2021-02-02] MEDS: Pramipexole Di-HCL 0.25 MG TABLET 0.5 MG PO ×2 (08:29→18:33)
[2021-02-02] MEDS: Cholecalciferol (Vitamin D3) 25 MCG TABLET PO (08:30)
[2021-02-02] MEDS: Apixaban 5 MG TABLET PO ×2 (08:30→20:36)
--- NOTE | 2021-02-02 09:12 | MHC.CM.PN ---
IMM 01/02/21 Male 55 DX Palpatations. He lives w S.O. She is his HCP. A copy has been requested. The Pt is independent all functional mobility and ADLs. PCP is Dr Ivory. DP home no services w family transport. CM will follow.
[2021-02-02 11:03] LABS: Glucose, Whole Blood 164 mg/dL (60-115)
[2021-02-02] MEDS: Insulin Lispro 100 UNIT/ML 3 ML VIAL SUBCUT (11:14)
--- NOTE | 2021-02-02 12:36 | PM.CNCAR ---
History of Present Illness History of Present Illness Date of Service: 02/02/21 Requesting physician: Tacho Ken Chief complaint: palpitation Narrative: Pleasant 55 gentleman with background of paroxysmal atrial fibrillation. He had cardiac event monitor placed to assess AFib burden. He had multiple runs of atrial fibrillation. Yesterday he had palpitations and decided to come to emergency department. He was noticed to be in AFib with RVR. He was started on diltiazem and it appears he reverted back to sinus rhythm. He has no palpitation now. No other symptoms other than chronic abdominal pain. He has been taking medications regularly. [facility] Past Medical History Medical History Atrial fibrillation Atrial fibrillation with rapid ventricular response Essential (primary) hypertension Incisional hernia Incisional hernia Opioid dependence with unspecified opioid-induced disorder Peripheral vascular disease due to secondary diabetes Tobacco use disorder Type 2 diabetes mellitus without complications Vitamin D deficiency Family History Family History Father No problems noted. Mother No problems noted. Brother No problems noted. Brother No problems noted. Brother No problems noted. Sister No problems noted. Surgical History Surgical History History of colostomy History of colostomy reversal History of dental surgery History of hernia repair History of inguinal hernia repair Social History Social History Household Members: Spouse Housing: Apartment Do you presently have visiting nurse or other home services: No Alcohol intake: unknown Patient Tobacco Use Status: Current everyday Tobacco user Tobacco use type: Cigarette Cigarette Packs Per Day: 1 Cigarettes Per Day: 20.0 Years Smoked: 40 Smoked in Last 30 Days: Yes e-Cigarette/Vaping Use: Never Used Patient Interested in Nicotine Replacement: No Patient Given Instructions on How to Stop Smoking: No (denied) Second Hand Smoke Exposure: No Use of substances other than those prescribed or required for medical reasons: Yes Substance Use Type: Marijuana Substance Use Frequency: Occasionally Last Used Substance: Weeks (ago) Currently Displaying Signs/Symptoms of Drug Intoxication Withdrawal: No Have you been hit, kicked, punched, or otherwise hurt by someone within the past year? If so, by whom?: No Do you feel safe in your current relationship?: Yes Is there a partner from a previous relationship who is making you feel unsafe now?: No Are you made to feel afraid or neglected: No Advance Directives: Yes Advance Directives Information Provided: Yes Advance Directives on File: No Advance Directives Date on File: 02/01/21 Do you have thoughts of harming others: None Do you have a plan to hurt others: No Plan Recently lost weight without trying: No Nutrition Risks: No Nutritional Risk service: No Current occupational status: disabled Meds Allergies Allergy/AdvReac Type Severity Reaction Status Date / Time No Known Allergies Allergy Verified 02/01/21 09:30 [No Known Allergies*] Active Medications: Current Medications Generic Name Dose Route Start Last Admin Trade Name Freq PRN Reason Stop Dose Admin Acetaminophen 650 mg 02/01/21 17:09 Acetaminophen 325 Mg Tablet PO Q6H PRN Pain, Mild (Pain Scale 1-3) Apixaban 5 mg 02/01/21 21:00 02/02/21 08:30 Apixaban 5 Mg Tablet PO 5 mg BID JEAN-PIERRE Administration Diltiazem HCl 240 mg 02/02/21 09:00 02/02/21 08:29 Diltiazem Hcl Cd 240 Mg Cap.Er.Deg PO 240 mg DAILY JEAN-PIERRE Administration Protocol Diltiazem HCl 125 mg/ Sodium 125 mls @ 0 mls/hr 02/01/21 09:15 02/02/21 10:17 Chloride IVCONT Infused .Q0M JEAN-PIERRE Titration Protocol Per Protocol Insulin Human Lispro 0 unit 02/01/21 17:09 02/02/21 11:14 Insulin Lispro 100 Unit/Ml 3 Ml Vial SUBCUT 2 unit QIDACHS JEAN-PIERRE Administration Protocol Ondansetron HCl 4 mg 02/01/21 17:09 Ondansetron Hcl 4 Mg/2 Ml Vial IVPUSH Q8H PRN Nausea and Vomiting Pharmacy Consult 1 each 02/01/21 09:00 Consult Rx Perform Med Rec MISCELLANE ONCE PRN Consult order Pramipexole Dihydrochloride 0.5 mg 02/01/21 21:00 02/02/21 08:29 Pramipexole Di-Hcl 0.25 Mg Tablet PO 0.5 mg BID JEAN-PIERRE Administration Sodium Chloride 3 ml 02/01/21 17:09 02/02/21 08:31 0.9 % Sodium Chloride Flush 3 Ml Syringe IVFLUSH 3 ml QSHIFT JEAN-PIERRE Administration Vitamin D 25 mcg 02/02/21 09:00 02/02/21 08:30 Cholecalciferol (Vitamin D3) 25 Mcg Tablet PO 25 mcg DAILY JEAN-PIERRE Administration Home Medications Medication Instructions Recorded Confirmed Last Taken Type pramipexole 0.5 mg tablet 0.5 mg PO BID 06/30/20 02/01/21 02/01/21 History blood sugar diagnostic #10 ea 10/11/20 01/16/21 Unknown History cholecalciferol (vitamin D3) 1,000 unit PO DAILY 12/14/20 02/01/21 02/01/21 History [Vitamin D3] Physical Exam Vital Signs: Vital Signs: Last Vital Signs Temp 98.1 F 02/02/21 11:39 Pulse 68 02/02/21 11:39 Resp 20 02/02/21 11:39 BP 119/76 02/02/21 11:39 Pulse Ox 97 02/02/21 11:39 Body Mass Index 32.0 GENERAL APPEARANCE: in no acute distress, pleasant. NECK: no carotid bruit, no jugular venous distention. SKIN: no suspicious lesions, warm and dry. HEART: no murmurs, regular rate and rhythm. LUNGS: clear to auscultation bilaterally. ABDOMEN: soft, nondistended. EXTREMITIES: no edema. PERIPHERAL PULSES: equal. NEUROLOGIC: No gross deficits, AAO X 3 Results Labs and Meds Result diagrams: 02/02/21 05:16 02/02/21 05:16 Lab results: Laboratory Results - last 24 hr 02/01/21 02/01/21 02/01/21 17:19 19:58 21:25 WBC RBC Hgb Hct MCV MCH MCHC RDW Plt Count MPV Immature Gran % (Auto) Neut % (Auto) Lymph % (Auto) [place] % (Auto) Eos % (Auto) Baso % (Auto) Lymph # (Auto) [place] # (Auto) Eos # (Auto) Baso # (Auto) Abs Immat Gran (auto) Absolute Neuts (auto) Absolute Nucleated RBC Nucleated RBC % (auto) Sodium Potassium Chloride Carbon Dioxide Anion Gap BUN Creatinine Estim Creat Clear Calc Estimated GFR POC Glucose 101 178 H Random Glucose Calcium Troponin I High Sens 4.7 02/02/21 02/02/21 02/02/21 05:16 05:16 07:13 WBC 11.8 H RBC 5.41 Hgb 15.9 Hct 48.3 MCV 89.3 MCH 29.4 MCHC 32.9 RDW 14.9 Plt Count 256 MPV 10.1 Immature Gran % (Auto) 0.8 H Neut % (Auto) 56.4 Lymph % (Auto) 32.1 [place] % (Auto) 8.1 Eos % (Auto) 1.9 Baso % (Auto) 0.7 Lymph # (Auto) 3.8 [place] # (Auto) 1.0 Eos # (Auto) 0.2 Baso # (Auto) 0.1 Abs Immat Gran (auto) 0.09 H Absolute Neuts (auto) 6.7 Absolute Nucleated RBC 0.000 Nucleated RBC % (auto) 0.0 Sodium 142 Potassium 4.1 Chloride 107 Carbon Dioxide 25 Anion Gap 14 BUN 17 H Creatinine 0.78 Estim Creat Clear Calc 117.1 Estimated GFR > 60 POC Glucose 117 H Random Glucose 100 D Calcium 8.9 D Troponin I High Sens 02/02/21 10:55 WBC RBC Hgb Hct MCV MCH MCHC RDW Plt Count MPV Immature Gran % (Auto) Neut % (Auto) Lymph % (Auto) [place] % (Auto) Eos % (Auto) Baso % (Auto) Lymph # (Auto) [place] # (Auto) Eos # (Auto) Baso # (Auto) Abs Immat Gran (auto) Absolute Neuts (auto) Absolute Nucleated RBC Nucleated RBC % (auto) Sodium Potassium Chloride Carbon Dioxide Anion Gap BUN Creatinine Estim Creat Clear Calc Estimated GFR POC Glucose 164 H Random Glucose Calcium Troponin I High Sens Assessment and Plan (1) Essential (primary) hypertension: Status: Acute (2) Atrial fibrillation: Qualifiers: Atrial fibrillation type: paroxysmal Qualified Code(s): I48.0 - Paroxysmal atrial fibrillation Status: Acute [age] gentleman here for palpitations and AFib with RVR. He has reverted back to sinus rhythm at this stage. It appears he is quite symptomatic when he develops atrial fibrillation. His cardiac event monitor has shown multiple runs of atrial fibrillation. He is on Eliquis and has been taking it regularly. Continue diltiazem. Adding Multaq 400 mg twice a day. If tolerates Multaq then potentially can go home. He has cardiac event monitor and will see how his AFib burden reacts to Multaq. Thank you for allowing me to participate in the care of your patient. Please feel free to contact me if you have any questions. Procedures Date of Service Date of Service: 02/02/21
[2021-02-02] MEDS: Dronedarone HCl 400 MG TABLET PO ×2 (13:16→20:37)
[2021-02-02 16:02] LABS: Glucose, Whole Blood 132 mg/dL (60-115)
--- NOTE | 2021-02-02 16:09 | P.PNIM_ITS ---
Subjective Subjective Date of Service: 02/02/21 Interval History: The patient was seen and evaluated this morning Laying in bed, feels agitated by being in the hospital but heart rate better controlled Denies any fever, chills or shortness of breath No reported other overnight events. Systemic review: No fever, chills or weakness No chest pain, feels palpitation on and off No shortness of breath or coughing No abdominal pain, nausea or vomiting No urinary symptoms No any rash or wounds Physical Exam Vital Signs: Vital Signs: Last Vital Signs Temp 98.5 F 02/02/21 15:19 Pulse 60 02/02/21 15:19 Resp 18 02/02/21 15:19 BP 118/78 02/02/21 15:19 Pulse Ox 95 02/02/21 15:19 Body Mass Index 32.0 Const: Other: TheConstitutional : Alert, oriented, not in distress Neck : Normal inspection, Supple Cardiovascular : Irregular irregular, S1 S2, no lower extremity edema, Respiratory : Good bilateral air entry, no crackles, wheezes or rhonchi Gastrointestinal: soft, lax, Normal bowel sounds, Non tender Skin : Warm/Dry, No rash Neurological : Alert & oriented x3, No focal deficit Objective Data Current Medications Generic Name Dose Route Start Last Admin Trade Name Freq PRN Reason Stop Dose Admin Acetaminophen 650 mg 02/01/21 17:09 Acetaminophen 325 Mg Tablet PO Q6H PRN Pain, Mild (Pain Scale 1-3) Apixaban 5 mg 02/01/21 21:00 02/02/21 08:30 Apixaban 5 Mg Tablet PO 5 mg BID JEAN-PIERRE Administration Diltiazem HCl 240 mg 02/02/21 09:00 02/02/21 08:29 Diltiazem Hcl Cd 240 Mg Cap.Er.Deg PO 240 mg DAILY JEAN-PIERRE Administration Protocol Dronedarone 400 mg 02/02/21 12:45 02/02/21 13:16 Dronedarone Hcl 400 Mg Tablet PO 400 mg BID JEAN-PIERRE Administration Diltiazem HCl 125 mg/ Sodium 125 mls @ 0 mls/hr 02/01/21 09:15 02/02/21 10:17 Chloride IVCONT Infused .Q0M JEAN-PIERRE Titration Protocol Per Protocol Insulin Human Lispro 0 unit 02/01/21 17:09 02/02/21 16:04 Insulin Lispro 100 Unit/Ml 3 Ml Vial SUBCUT Not Given QIDACHS [facility] Protocol Pharmacy Consult 1 each 02/01/21 09:00 Consult Rx Perform Med Rec MISCELLANE ONCE PRN Consult order Pramipexole Dihydrochloride 0.5 mg 02/01/21 21:00 02/02/21 08:29 Pramipexole Di-Hcl 0.25 Mg Tablet PO 0.5 mg BID JEAN-PIERRE Administration Sodium Chloride 3 ml 02/01/21 17:09 02/02/21 16:05 0.9 % Sodium Chloride Flush 3 Ml Syringe IVFLUSH 3 ml QSHIFT JEAN-PIERRE Administration Vitamin D 25 mcg 02/02/21 09:00 02/02/21 08:30 Cholecalciferol (Vitamin D3) 25 Mcg Tablet PO 25 mcg DAILY JEAN-PIERRE Administration Labs CBC & Chem 7: 02/02/21 05:16 02/02/21 05:16 Assessment and Plan (1) Atrial fibrillation with rapid ventricular response: Status: Acute (2) Tobacco use disorder: Status: Acute (3) Essential (primary) hypertension: Status: Acute Assessment and Plan: A 55 years old male with PMH of atrial fibrillation, smoking, HTN, PVD, type 2 diabetes among others who presented to the hospital complaining of difficulty breathing and shortness of breath associated palpitation. 55M presented with abdominal pain from known LLQ ventral hernia, and afib with rvr AFib with rvr Better controlled with fluctuation in rhythm Discontinue Cardizem drip continue oral cardizem 240 mg daily Continue anticoagulation Cardiology input appreciated, start Multaq and monitor Keep on telemetry avoid caffeine Hyperglycemia type 2 diabetes hold orals SSI HTN cardizem hydralazine DVT PPX Eliquis
[2021-02-02 20:24] LABS: Glucose, Whole Blood 129 mg/dL (60-115)
[2021-02-03 03:37] VITALS: BP 130/78; PULSE 63; RESP 18; TEMP 36.9; O2SAT 96
[2021-02-03 06:39] LABS: MANUAL DIFF FLAG NO
[2021-02-03 06:49] LABS: Basophils Absolute Auto 0.1 X10*3/uL (0.0-0.2); Basophils Percent Auto 0.7 % (0-2); Eosinophils Absolute Auto 0.2 X10*3/uL (0.0-0.4); Hematocrit 46.3 % (42-52); Hemoglobin 15.1 g/dl (14.0-18.0); Imm Gran Abs Auto 0.04 X10*3/uL (0.00-0.03); Imm Gran Pct Auto 0.4 % (0.0-0.4); Lymphocytes Absolute Auto 3.6 X10*3/uL (1.2-4.9); Lymphocytes Percent Auto 33.9 % (20-40); Mean Corpuscular HGB Conc 32.6 g/dl (31.0-36.0); Mean Corpuscular Hemoglobin 29.4 pg (27.0-33.0); Mean Corpuscular Volume 90.3 fL (80-98); Monocytes Absolute Auto 0.8 X10*3/uL (0.1-1.2); Monocytes Percent Auto 7.4 % (2-11); Neutrophils Absolute Auto 5.9 X10*3/uL (2.0-8.3); Neutrophils Percent Auto 55.6 % (45-73); Platelet Count 239 X10*3/uL (160-400); Red Blood Count 5.13 X10*6/uL (4.60-5.80); Red Cell Distribution Width 14.7 % (11.0-16.0); White Blood Count 10.5 X10*3/uL (4.8-10.8)
[2021-02-03 07:03] VITALS: BP 116/69; PULSE 57; RESP 18; TEMP 36.1; O2SAT 97
[2021-02-03 07:12] LABS: Glucose, Whole Blood 124 mg/dL (60-115)
[2021-02-03 07:18] LABS: Anion Gap 12 (12-20); Blood Urea Nitrogen 20 mg/dL (9-16); Calcium 8.7 mg/dL (8.4-10.2); Carbon Dioxide 25 mmol/L (22-29); Chloride 108 mmol/L (96-108); Creatinine Clr Calc Pharmacy 120.1; Estimated Glomerular Filt Rate > 60; Glucose Random 110 mg/dL (60-115); Potassium 3.9 mmol/L (3.3-5.1); Sodium 141 mmol/L (135-145)
[2021-02-03 08:27] VITALS: BP 116/69; PULSE 68
[2021-02-03] MEDS: Apixaban 5 MG TABLET PO (08:27)
[2021-02-03] MEDS: dilTIAZem HCL CD 240 MG CAP.ER.DEG PO (08:27)
[2021-02-03] MEDS: Pramipexole Di-HCL 0.25 MG TABLET 0.5 MG PO (08:27)
[2021-02-03] MEDS: Dronedarone HCl 400 MG TABLET PO (08:27)
[2021-02-03] MEDS: Cholecalciferol (Vitamin D3) 25 MCG TABLET PO (08:28)
--- NOTE | 2021-02-03 09:57 | PM.PNCARD ---
Subjective Subjective Date of Service: 02/04/21 Interval history: Has been stable since yesterday, on Multaq now Physical Exam Vital Signs: Last Vital Signs Temp 97 F 02/03/21 07:03 Pulse 68 02/03/21 08:27 Resp 18 02/03/21 07:03 BP 116/69 02/03/21 08:27 Pulse Ox 97 02/03/21 07:03 Body Mass Index 32.0 GENERAL APPEARANCE: in no acute distress, pleasant. NECK: no carotid bruit, no jugular venous distention. SKIN: no suspicious lesions, warm and dry. HEART: no murmurs, regular rate and rhythm. LUNGS: clear to auscultation bilaterally. ABDOMEN: soft, nondistended. EXTREMITIES: no edema. PERIPHERAL PULSES: equal. NEUROLOGIC: No gross deficits, AAO X 3 Results Labs and Meds Result diagrams: 02/03/21 05:18 02/03/21 05:18 Lab results: Laboratory Results - last 24 hr 02/02/21 02/02/21 02/02/21 10:55 15:47 20:17 WBC RBC Hgb Hct MCV MCH MCHC RDW Plt Count MPV Immature Gran % (Auto) Neut % (Auto) Lymph % (Auto) [place] % (Auto) Eos % (Auto) Baso % (Auto) Lymph # (Auto) [place] # (Auto) Eos # (Auto) Baso # (Auto) Abs Immat Gran (auto) Absolute Neuts (auto) Absolute Nucleated RBC Nucleated RBC % (auto) Sodium Potassium Chloride Carbon Dioxide Anion Gap BUN Creatinine Estim Creat Clear Calc Estimated GFR POC Glucose 164 H 132 H 129 H Random Glucose Calcium 02/03/21 02/03/21 02/03/21 05:18 05:18 07:03 WBC 10.5 RBC 5.13 Hgb 15.1 Hct 46.3 MCV 90.3 MCH 29.4 MCHC 32.6 RDW 14.7 Plt Count 239 MPV 10.0 Immature Gran % (Auto) 0.4 Neut % (Auto) 55.6 Lymph % (Auto) 33.9 [place] % (Auto) 7.4 Eos % (Auto) 2.0 Baso % (Auto) 0.7 Lymph # (Auto) 3.6 [place] # (Auto) 0.8 Eos # (Auto) 0.2 Baso # (Auto) 0.1 Abs Immat Gran (auto) 0.04 H Absolute Neuts (auto) 5.9 Absolute Nucleated RBC 0.000 Nucleated RBC % (auto) 0.0 Sodium 141 Potassium 3.9 Chloride 108 Carbon Dioxide 25 Anion Gap 12 BUN 20 H Creatinine 0.76 Estim Creat Clear Calc 120.1 Estimated GFR > 60 POC Glucose 124 H Random Glucose 110 Calcium 8.7 Progress Note: A&P Assessment and plan (1) Atrial fibrillation: Status: Acute (2) Essential (primary) hypertension: Status: Acute Assessment and Plan: Pleasant 55-year-old gentleman who presented with AFib with RVR. He has been on anticoagulation. He reverted back to sinus rhythm spontaneously. We added Multaq 400 mg twice a day. Since then, he has not had any further atrial fibrillation episodes. Clinically stable. Can go home on follow-up with us as outpatient. Thank you for allowing me to participate in the care of your patient. Please feel free to contact me if you have any questions. Fall Risk Details Current Medications: Current Medications Generic Name Dose Route Start Last Admin Trade Name Freq PRN Reason Stop Dose Admin Acetaminophen 650 mg 02/01/21 17:09 Acetaminophen 325 Mg Tablet PO Q6H PRN Pain, Mild (Pain Scale 1-3) Apixaban 5 mg 02/01/21 21:00 02/03/21 08:27 Apixaban 5 Mg Tablet PO 5 mg BID JEAN-PIERRE Administration Diltiazem HCl 240 mg 02/02/21 09:00 02/03/21 08:27 Diltiazem Hcl Cd 240 Mg Cap.Er.Deg PO 240 mg DAILY JEAN-PIERRE Administration Protocol Dronedarone 400 mg 02/02/21 12:45 02/03/21 08:27 Dronedarone Hcl 400 Mg Tablet PO 400 mg BID JEAN-PIERRE Administration Diltiazem HCl 125 mg/ Sodium 125 mls @ 0 mls/hr 02/01/21 09:15 02/02/21 10:17 Chloride IVCONT Infused .Q0M [facility] Titration Protocol Per Protocol Insulin Human Lispro 0 unit 02/01/21 17:09 02/03/21 07:25 Insulin Lispro 100 Unit/Ml 3 Ml Vial SUBCUT Not Given QIDACHS [facility] Protocol Pharmacy Consult 1 each 02/01/21 09:00 Consult Rx Perform Med Rec MISCELLANE ONCE PRN Consult order Pramipexole Dihydrochloride 0.5 mg 02/01/21 21:00 02/03/21 08:27 Pramipexole Di-Hcl 0.25 Mg Tablet PO 0.5 mg BID JEAN-PIERRE Administration Sodium Chloride 3 ml 02/01/21 17:09 02/03/21 08:30 0.9 % Sodium Chloride Flush 3 Ml Syringe IVFLUSH Not Given QSHIFT JEAN-PIERRE Vitamin D 25 mcg 02/02/21 09:00 02/03/21 08:28 Cholecalciferol (Vitamin D3) 25 Mcg Tablet PO 25 mcg DAILY JEAN-PIERRE Administration Time Spent With Patient Time: Total time spent is greater than 50% in coordination of care (as documented) at patient's floor/unit and/or counseling patient: Time with patient: 15 - 24 minutes Procedures Date of Service Date of Service: 02/03/21
--- NOTE | 2021-02-03 10:19 | MHC.CM.PN ---
IMM 02/02/21 Male 55 DX Palpitations Discharge to day to home, no services. S.O. is providing transportation.
--- NOTE | 2021-02-03 10:44 | P.DS_ITS ---
DS: Providers Provider Date of Service: 02/03/21 Date of admission: 02/01/21 13:30 Primary care physician: Unknown Physician Consults: 02/01/21 17:09 Consult to Cardiology Routine Consulting Provider: Cam Malcolm Reason for consultation: recurrent AFib w RvR for your advice DS: Diagnosis Discharge Diagnosis (1) Atrial fibrillation with rapid ventricular response: Status: Acute (2) Tobacco use disorder: Status: Acute (3) Essential (primary) hypertension: Status: Acute DS: Medications Discharge Medications Home Medications: Home Medications Medication Instructions Recorded Confirmed pramipexole 0.5 mg tablet 0.5 mg PO BID 06/30/20 02/01/21 blood sugar diagnostic #10 ea 10/11/20 01/16/21 cholecalciferol (vitamin D3) 1,000 unit PO DAILY 12/14/20 02/01/21 [Vitamin D3] Previous Rx's Medication Instructions Recorded metformin 500 mg tablet 1,000 mg PO BID #360 tab 08/10/20 apixaban 5 mg tablet 5 mg PO BID 30 Days #60 tab 01/10/21 diltiazem HCl 240 mg 240 mg PO DAILY #30 cap 01/10/21 capsule,extended release 24 hr empagliflozin 25 mg tablet 25 mg PO QAM #90 tab 01/16/21 dronedarone [Multaq] 400 mg PO BID 30 Days tab 02/03/21 DS: Summary Hospital Course Hospital Course: Admission note HPI A 55 years old male with PMH of atrial fibrillation, smoking, HTN, PVD, type 2 diabetes among others who presented to the hospital complaining of difficulty breathing and shortness of breath associated palpitation. The patient reports that his symptoms started earlier this morning around 930 when he woke up after having couple of coffee cups. He started the day of palpitation, chest heaviness and difficulty breathing while sitting and with very short distances. His symptoms were similar to a previous episode where he ended up in the emergency. The patient decided to come to the emergency and was found to be in atrial fibrillation with RVR. In the emergency he was started on the Cardizem drip with fair response as his heart rate brought down from 1 80s to 130s. Admitted further evaluation and treatment. Hospital course The patient was admitted to the hospital for had atrial fibrillation with rapid ventricular response. He was started on Cardizem drip in the emergency and admitted to the hospital with good response overnight as his heart rate became more controlled. Cardizem drip was stopped and he was started on p.o. Cardizem with recurrence of atrial fibrillation with RVR. Evaluated by Cardiology who decided to Multaq. The patient converted back to sinus rhythm and remained in that with rate in 70s. Plan to discharge home on similar home medication and addition Multaq To follow up with Cardiology as outpatient. Time Spent with Patient Time attestation: Total time spent providing and/or coordinating discharge services: Discharge coordination time: Greater than 30 minutes Quality: Stroke Does the patient have a stroke diagnosis?: No Physical Exam Vital Signs: Vital Signs: Last Vital Signs Temp 97 F 02/03/21 07:03 Pulse 68 02/03/21 08:27 Resp 18 02/03/21 07:03 BP 116/69 02/03/21 08:27 Pulse Ox 97 02/03/21 07:03 Body Mass Index 32.0 Const: Other: TheConstitutional : Alert, oriented, not in distress Neck : Normal inspection, Supple Cardiovascular : Regular regular, S1 S2, no lower extremity edema, Respiratory : Good bilateral air entry, no crackles, wheezes or rhonchi Gastrointestinal: soft, lax, Normal bowel sounds, Non tender Skin : Warm/Dry, No rash Neurological : Alert & oriented x3, No focal deficit DS: Data Data Completed and Pending Completed studies during hospitalization [Text1]: Procedures Supplement Abdominal Wall with Synthetic Substitute, Open Approach (12/18/20) Labs on day of discharge: Laboratory Results - last 24 hr 02/02/21 02/02/21 02/02/21 10:55 15:47 20:17 WBC RBC Hgb Hct MCV MCH MCHC RDW Plt Count MPV Immature Gran % (Auto) Neut % (Auto) Lymph % (Auto) [place] % (Auto) Eos % (Auto) Baso % (Auto) Lymph # (Auto) [place] # (Auto) Eos # (Auto) Baso # (Auto) Abs Immat Gran (auto) Absolute Neuts (auto) Absolute Nucleated RBC Nucleated RBC % (auto) Sodium Potassium Chloride Carbon Dioxide Anion Gap BUN Creatinine Estim Creat Clear Calc Estimated GFR POC Glucose 164 H 132 H 129 H Random Glucose Calcium 02/03/21 02/03/21 02/03/21 05:18 05:18 07:03 WBC 10.5 RBC 5.13 Hgb 15.1 Hct 46.3 MCV 90.3 MCH 29.4 MCHC 32.6 RDW 14.7 Plt Count 239 MPV 10.0 Immature Gran % (Auto) 0.4 Neut % (Auto) 55.6 Lymph % (Auto) 33.9 [place] % (Auto) 7.4 Eos % (Auto) 2.0 Baso % (Auto) 0.7 Lymph # (Auto) 3.6 [place] # (Auto) 0.8 Eos # (Auto) 0.2 Baso # (Auto) 0.1 Abs Immat Gran (auto) 0.04 H Absolute Neuts (auto) 5.9 Absolute Nucleated RBC 0.000 Nucleated RBC % (auto) 0.0 Sodium 141 Potassium 3.9 Chloride 108 Carbon Dioxide 25 Anion Gap 12 BUN 20 H Creatinine 0.76 Estim Creat Clear Calc 120.1 Estimated GFR > 60 POC Glucose 124 H Random Glucose 110 Calcium 8.7 Discharge Plan Discharge Patient Disposition: Home, Self-Care Discharge Diagnosis: Atrial fibrillation with rapid ventricular response Referrals: Physician,Unknown [Primary Care Provider] - 1 Week Kris Ivory MD [Physician] - 1 Week Discharge Medications: New Multaq 400 mg Tablet 400 mg PO BID 30 Days RF: 0 Continued metformin 500 mg tablet 1,000 mg PO BID Qty: 360 RF: 1 diltiazem HCl 240 mg capsule,extended release 24hr 240 mg PO DAILY Qty: 30 RF: 2 Eliquis 5 mg tablet 5 mg PO BID 30 Days Qty: 60 RF: 5 cholecalciferol (vitamin D3) [Vitamin D3] 25 mcg (1,000 unit) Capsule 1,000 unit PO DAILY RF: 0 pramipexole 0.5 mg tablet 0.5 mg PO BID RF: 0 (DME) blood sugar diagnostic Strip See Rx Instructions strip Not Applicable BID Qty: 10 RF: 0 Jardiance 25 mg tablet 25 mg PO QAM Qty: 90 RF: 1 Discharge Orders: Discharge Order (Routine); Ordered 02/03/21 Ordered By: Tacho Ken Diet: advance to usual diet Activity on Discharge: As tolerated Stand Alone Forms: Patient Portal Discharge page Care Plan Goals: Read below Health Concerns: Read below Plan of Treatment: You were admitted to the hospital for evaluation of palpitations and breathing problem. Found to be on atrial fibrillation with rapid ventricular response. Treated with IV medications with fair response and evaluated by government affairs researcher who started a new medication called Multaq with good response you and control of your heart rate and rhythm. Assessment: Continue home medications as prescribed Start Multaq as prescribed To follow up with Cardiology as outpatient Discharge Date/Time: 02/03/21 10:35
== END 2021-02-03 10:35 | disposition home or self-care (01) | DRG 310 ==
LOC: HO.ED 10:39 → HO.EDOVER 14:21 → HO.IMC 15:29
PROVIDERS: Internal Medicine; Admitting Provider Student in an Organized Health Care Education/Training Program; Emergency Provider Emergency Medicine; Visit Provider Student in an Organized Health Care Education/Training Program
DX: I48.0 Paroxysmal atrial fibrillation (principal); E11.65 Type 2 diabetes mellitus with hyperglycemia; I10 Essential (primary) hypertension; E11.51 Type 2 diabetes mellitus with diabetic peripheral angiopathy without gangrene; F17.210 Nicotine dependence, cigarettes, uncomplicated; Z71.6 Tobacco abuse counseling; Z20.822 Contact with and (suspected) exposure to COVID-19; Z79.01 Long term (current) use of anticoagulants; Z79.899 Other long term (current) drug therapy
CPT/HCPCS: 36415; 71045; 80048; 80076; 82947; 83735; 83880; 84443; 84484; 85025; 85610; 85730; 87635; 93005; 96374; 96375; 99285; 99291; J2270; J3010

== ENCOUNTER → 2021-03-13 09:35 | Outpatient (BNVA) | payer OTHER, SELFPAY | PROVIDERS: PCP Internal Medicine; Referring Provider Internal Medicine; Visit Provider Internal Medicine | DX: I48.0 Paroxysmal atrial fibrillation (principal); I73.9 Peripheral vascular disease, unspecified; E11.8 Type 2 diabetes mellitus with unspecified complications; Z51.81 Encounter for therapeutic drug level monitoring; Z79.899 Other long term (current) drug therapy | CPT/HCPCS: 93005; 99212 ==

== ENCOUNTER → 2021-04-05 08:57 | Outpatient (REF) | payer OTHER, SELFPAY | LOC: HO.SL 08:57 | PROVIDERS: PCP Internal Medicine; Visit Provider Internal Medicine | DX: G47.33 Obstructive sleep apnea (adult) (pediatric) (principal); I48.0 Paroxysmal atrial fibrillation | CPT/HCPCS: 95806 ==

== ENCOUNTER → 2021-05-03 13:18 | Outpatient (BNVA) | payer OTHER, SELFPAY | PROVIDERS: PCP Internal Medicine; Visit Provider Internal Medicine | DX: G47.33 Obstructive sleep apnea (adult) (pediatric) (principal); I48.0 Paroxysmal atrial fibrillation; I10 Essential (primary) hypertension; E11.51 Type 2 diabetes mellitus with diabetic peripheral angiopathy without gangrene; F11.29 Opioid dependence with unspecified opioid-induced disorder; F17.200 Nicotine dependence, unspecified, uncomplicated; Z79.84 Long term (current) use of oral hypoglycemic drugs; Z79.899 Other long term (current) drug therapy | CPT/HCPCS: 99202 ==

== ENCOUNTER → 2021-06-26 08:16 | Outpatient (BNVA) | payer OTHER, SELFPAY | PROVIDERS: PCP Internal Medicine; Referring Provider Internal Medicine; Visit Provider Internal Medicine | DX: I48.0 Paroxysmal atrial fibrillation (principal); I73.9 Peripheral vascular disease, unspecified; E11.8 Type 2 diabetes mellitus with unspecified complications; Z51.81 Encounter for therapeutic drug level monitoring; Z79.899 Other long term (current) drug therapy | CPT/HCPCS: 93005; 99212 ==

== ENCOUNTER 2021-07-04 06:09 | Outpatient (REF) | payer OTHER, SELFPAY ==
[2021-07-04 08:03] LABS: Alanine Aminotransferase 16 U/L (0-40); Albumin Level 4.5 g/dL (3.5-5.0); Alkaline Phosphatase 73 U/L (39-117); Aspartate Amino Transferase 20 U/L (5-37); Bilirubin Direct 0.3 mg/dL (0.0-0.5); Bilirubin Total 0.7 mg/dL (0.0-1.0); Cholesterol 104 mg/dL; HDL Cholesterol 32 mg/dL; LDL Cholesterol Calculated 15 mg/dl; Total Protein 7.2 g/dL (6.5-8.0); Triglycerides 288 mg/dL
== END 2021-07-04 06:10 | disposition home or self-care (01) ==
LOC: HO.LAB 06:09
PROVIDERS: PCP Internal Medicine; Visit Provider Internal Medicine
DX: E13.51 Other specified diabetes mellitus with diabetic peripheral angiopathy without gangrene (principal); I25.10 Atherosclerotic heart disease of native coronary artery without angina pectoris; E78.5 Hyperlipidemia, unspecified
CPT/HCPCS: 36415; 80061; 80076

== ENCOUNTER → 2021-07-11 09:01 | Outpatient (BNVA) | payer OTHER, SELFPAY | PROVIDERS: PCP Internal Medicine; Visit Provider Internal Medicine | DX: G47.33 Obstructive sleep apnea (adult) (pediatric) (principal); F17.200 Nicotine dependence, unspecified, uncomplicated; Z71.6 Tobacco abuse counseling; Z79.899 Other long term (current) drug therapy | CPT/HCPCS: 99212 ==

== ENCOUNTER → 2021-08-28 09:02 | Outpatient (BNVA) | payer OTHER, SELFPAY | PROVIDERS: PCP Internal Medicine; Visit Provider Internal Medicine | DX: G47.33 Obstructive sleep apnea (adult) (pediatric) (principal); G47.9 Sleep disorder, unspecified; F17.210 Nicotine dependence, cigarettes, uncomplicated | CPT/HCPCS: 99212 ==

== ENCOUNTER 2021-09-04 06:12 | Outpatient (REF) | payer OTHER, SELFPAY ==
[2021-09-04 07:22] LABS: Appearance Urine CLEAR; Color Urine YELLOW; Glucose Urine UA >=1000 MG/DL (NEG); Leukocyte Esterase Urine NEG (NEG); Nitrite Urine NEG (NEG); PH 5.5 (5.0-8.0); Specific Gravity - Urine 1.025 (1.005-1.025); Urine Blood TRACE (NEG); Urine Ketones NEG (NEG); Urine Protein NEG (NEG-TRACE)
[2021-09-04 07:23] LABS: Hematocrit 50.1 % (42.0-52.0); Hemoglobin 16.4 g/dl (14.0-18.0); Mean Corpuscular HGB Conc 32.7 g/dl (31.0-36.0); Mean Corpuscular Hemoglobin 29.1 pg (27.0-33.0); Mean Platelet Volume 10.4 fL (9.4-12.4); Platelet Count 241 X10*3/uL (160-400); Red Blood Count 5.63 X10*6/uL (4.60-5.80); Red Cell Distribution Width 14.9 % (11.0-16.0); White Blood Count 11.4 X10*3/uL (4.8-10.8)
[2021-09-04 07:33] LABS: Estimated Average Glucose 174 mg/dL; Hemoglobin A1c % 7.7 %
[2021-09-04 07:44] LABS: RBC Urine 0-2 /HPF (0); Sperm Urine NOTED; Squamous Epithelial Cell Urine TRACE /LPF; WBC Urine 0 /HPF (0-4)
[2021-09-04 08:03] LABS: Alanine Aminotransferase 14 U/L (0-40); Albumin Level 4.5 g/dL (3.5-5.0); Alkaline Phosphatase 75 U/L (39-117); Anion Gap 13 (12-20); Aspartate Amino Transferase 19 U/L (5-37); Bilirubin Direct 0.2 mg/dL (0.0-0.5); Bilirubin Total 0.7 mg/dL (0.0-1.0); Blood Urea Nitrogen 22 mg/dL (9-16); Calcium 10.1 mg/dL (8.4-10.2); Carbon Dioxide 27 mmol/L (22-29); Chloride 107 mmol/L (96-108); Cholesterol 115 mg/dL; Estimated Glomerular Filt Rate > 60; Glucose Random 146 mg/dL (60-115); HDL Cholesterol 32 mg/dL; LDL Cholesterol Calculated 15 mg/dl; Sodium 142 mmol/L (135-145); Total Protein 7.5 g/dL (6.5-8.0); Triglycerides 341 mg/dL
[2021-09-04 08:04] LABS: Creatinine Urine 90.85 mg/dL; Microalbum/Creatinine Ratio Ur 93.5 ug/mg cr
== END 2021-09-04 06:13 | disposition home or self-care (01) ==
LOC: HO.LAB 06:12
PROVIDERS: PCP Internal Medicine; Visit Provider Internal Medicine
DX: E11.8 Type 2 diabetes mellitus with unspecified complications (principal)
CPT/HCPCS: 36415; 80048; 80061; 80076; 81001; 82043; 83036; 84443; 85027

== ENCOUNTER → 2022-01-02 08:20 | Outpatient (BNVA) | payer OTHER, SELFPAY | PROVIDERS: PCP Internal Medicine; Referring Provider Internal Medicine; Visit Provider Internal Medicine | DX: I48.0 Paroxysmal atrial fibrillation (principal); I73.9 Peripheral vascular disease, unspecified; E11.8 Type 2 diabetes mellitus with unspecified complications; Z79.01 Long term (current) use of anticoagulants; Z79.899 Other long term (current) drug therapy | CPT/HCPCS: 93005; 99212 ==

== ENCOUNTER 2022-02-22 17:38 | Outpatient (REF) | payer OTHER, SELFPAY | END 2022-02-22 17:39 | disposition home or self-care (01) | LOC: HO.LNP 17:38 | DX: T14.8XXA Other injury of unspecified body region, initial encounter (principal); R78.81 Bacteremia | CPT/HCPCS: 87071; 87205 ==

== ENCOUNTER → 2022-03-12 09:01 | Outpatient (BNVA) | payer OTHER, SELFPAY | PROVIDERS: PCP Internal Medicine; Visit Provider Internal Medicine | DX: G47.33 Obstructive sleep apnea (adult) (pediatric) (principal); G47.9 Sleep disorder, unspecified; J44.9 Chronic obstructive pulmonary disease, unspecified; F17.210 Nicotine dependence, cigarettes, uncomplicated | CPT/HCPCS: 99212 ==

== ENCOUNTER 2022-04-10 07:38 | Outpatient (REF) | payer OTHER, SELFPAY ==
--- NOTE | 2022-04-10 10:16 | PFT_ITS ---
INDICATION: COPD. SPIROMETRY: FEV1 to FVC of 63% with an FEV1 of 2.97 L, which is 87% predicted and an FVC of 4.74 L, which is 105% predicted. No significant response to bronchodilators noted. To note, the [id number] decreased to 50% predicted. Maximum voluntary ventilation 76% predicted. LUNG VOLUMES: Total lung capacity 116% predicted, residual volume 145% predicted, and a diffusion capacity DLCO of 72% predicted. COMPARISONS: None. INTERPRETATION: There is an obstructive ventilatory defect consistent with mild COPD. No significant response to bronchodilators noted. Mild decrease in maximum voluntary ventilation secondary to likely deconditioning. Lung volumes with a trend of hyperinflation and significant air trapping due to the COPD and there is also mild diffusion impairment. Clinical correlation warranted. Pavel Roa MD MR/MODL / [id number]
== END 2022-04-10 07:39 | disposition home or self-care (01) ==
LOC: HO.RESP 07:38
PROVIDERS: PCP Internal Medicine; Visit Provider Internal Medicine
DX: J44.9 Chronic obstructive pulmonary disease, unspecified (principal); F17.200 Nicotine dependence, unspecified, uncomplicated
CPT/HCPCS: 94060; 94727; 94729

== ENCOUNTER 2022-05-04 06:00 | Outpatient (REF) | payer OTHER, SELFPAY ==
[2022-05-04 07:10] LABS: Hematocrit 47.1 % (42.0-52.0); Hemoglobin 15.7 g/dl (14.0-18.0); Mean Corpuscular HGB Conc 33.3 g/dl (31.0-36.0); Mean Corpuscular Hemoglobin 28.7 pg (27.0-33.0); Mean Corpuscular Volume 86.1 fL (80.0-98.0); Mean Platelet Volume 10.1 fL (9.4-12.4); Platelet Count 231 X10*3/uL (160-400); Red Blood Count 5.47 X10*6/uL (4.60-5.80); Red Cell Distribution Width 14.9 % (11.0-16.0); White Blood Count 10.6 X10*3/uL (4.8-10.8)
[2022-05-04 07:21] LABS: Estimated Average Glucose 214 mg/dL; Hemoglobin A1c % 9.1 %
[2022-05-04 07:26] LABS: Appearance Urine Clear; Color Urine Yellow; Glucose Urine UA >=1000 mg/dL (Negative); Leukocyte Esterase Urine Negative (Negative); Nitrite Urine Negative (Negative); PH 5.5 (5.0-9.0); Specific Gravity - Urine 1.015 (1.005-1.025); Urine Blood Negative (Negative); Urine Ketones Negative (Negative); Urine Protein Negative (Neg-Trace)
[2022-05-04 07:36] LABS: Alanine Aminotransferase 10 U/L (0-40); Albumin Level 4.3 g/dL (3.5-5.0); Alkaline Phosphatase 81 U/L (39-117); Anion Gap 17 (12-20); Aspartate Amino Transferase 15 U/L (5-37); Bilirubin Direct 0.2 mg/dL (0.0-0.5); Bilirubin Total 0.5 mg/dL (0.0-1.0); Blood Urea Nitrogen 17 mg/dL (9-16); Calcium 9.4 mg/dL (8.4-10.2); Carbon Dioxide 25 mmol/L (22-29); Chloride 101 mmol/L (96-108); Cholesterol 131 mg/dL; Estimated Glomerular Filt Rate > 60; Glucose Random 240 mg/dL (60-115); HDL Cholesterol 31 mg/dL; Potassium 4.4 mmol/L (3.3-5.1); Sodium 139 mmol/L (135-145); Total Protein 7.5 g/dL (6.5-8.0); Triglycerides 735 mg/dL
[2022-05-04 07:47] LABS: Bacteria Urine None Seen (None Seen); Hyaline Casts Urine 0-2 /LPF (0-2); RBC Urine 0-2 /HPF (0-2); Squamous Epithelial Cell Urine 0-2 /HPF (0-2); WBC Urine 0-5 /HPF (0-5)
[2022-05-04 07:58] LABS: Thyroid Stimulating Hormone 1.19 uIU/mL (0.32-4.0)
== END 2022-05-04 06:01 | disposition home or self-care (01) ==
LOC: HO.LAB 06:00
PROVIDERS: PCP Internal Medicine; Visit Provider Internal Medicine
DX: E11.8 Type 2 diabetes mellitus with unspecified complications (principal)
CPT/HCPCS: 36415; 80048; 80061; 80076; 81001; 83036; 84443; 85027

== ENCOUNTER 2022-05-11 12:42 | Outpatient (REF) | payer OTHER, SELFPAY ==
--- NOTE | ~2022-05-11 | CT_ITS ---
EXAMINATION: CT CHEST SCREENING CLINICAL INFORMATION: Current smoker of one pack per day for 45 years. COMPARISON: Previous chest x-ray January 2021. TECHNIQUE: Multidetector volumetric CT imaging of the chest is performed without contrast using low dose technique. Additional 2D coronal and sagittal reformatted images and axial 3D maximum intensity projection (MIP) images are generated on the CT workstation. This CT examination was performed using dose optimization techniques as appropriate, variously including the following: *Automated exposure control *Adjustment of mA and/or kV according to patient size (this includes techniques or standardized protocols for targeted exams where dose is matched to indication/reason for exam; i.e. extremities or head) *Use of iterative reconstruction technique DLP: 68 mGy-cm. FINDINGS: LUNGS: There is mild paraseptal emphysema. The lungs are clear. No endobronchial or endotracheal lesion. MEDIASTINUM: Mild coronary artery and aortic valve calcification. The mediastinum is otherwise normal. PLEURA: There is no pleural effusion. No pleural mass or thickening. AXILLA: No lymphadenopathy. UPPER ABDOMEN: There is evidence of previous surgery to the anterior abdominal wall. OSSEOUS STRUCTURES: There are degenerative changes of the spine. CT/CT lung screening IMPRESSION: Mild paraseptal emphysema. Mild coronary artery and aortic valve calcification. ASSESSMENT: Lung-RADS category 1: Negative. RECOMMENDATION: Annual low-dose chest CT follow-up recommended.
== END 2022-05-11 12:43 | disposition home or self-care (01) ==
LOC: HO.CT 12:42
PROVIDERS: PCP Internal Medicine; Visit Provider Physician Assistant Medical
DX: Z12.2 Encounter for screening for malignant neoplasm of respiratory organs (principal); F17.210 Nicotine dependence, cigarettes, uncomplicated
CPT/HCPCS: 71271; G0296

== ENCOUNTER → 2022-05-14 08:05 | Outpatient (BNVA) | payer OTHER, SELFPAY | PROVIDERS: PCP Internal Medicine; Referring Provider Internal Medicine; Visit Provider Internal Medicine | DX: Z51.81 Encounter for therapeutic drug level monitoring (principal); I48.0 Paroxysmal atrial fibrillation; I73.9 Peripheral vascular disease, unspecified; E11.8 Type 2 diabetes mellitus with unspecified complications; Z79.899 Other long term (current) drug therapy | CPT/HCPCS: 93005; 99212 ==

== ENCOUNTER → 2022-05-17 09:34 | Outpatient (BNVA) | payer OTHER, SELFPAY | PROVIDERS: PCP Internal Medicine; Visit Provider Internal Medicine | DX: G47.33 Obstructive sleep apnea (adult) (pediatric) (principal); J44.9 Chronic obstructive pulmonary disease, unspecified; G47.9 Sleep disorder, unspecified; Z87.891 Personal history of nicotine dependence | CPT/HCPCS: 99212 ==

== ENCOUNTER → 2022-08-13 08:12 | Outpatient (BNVA) | payer OTHER, SELFPAY | PROVIDERS: PCP Internal Medicine; Referring Provider Internal Medicine; Visit Provider Internal Medicine | DX: I48.91 Unspecified atrial fibrillation (principal); Z79.01 Long term (current) use of anticoagulants; Z79.899 Other long term (current) drug therapy | CPT/HCPCS: 93005 ==

== ENCOUNTER 2022-09-07 15:19 | Emergency (ER) | payer OTHER, SELFPAY ==
--- NOTE | ~2022-09-07 | XR_ITS ---
EXAMINATION: XR WRIST, LEFT CLINICAL INFORMATION: Volar pain. No trauma. COMPARISON: None TECHNIQUE: Four views of the left wrist. FINDINGS: No fracture or dislocation. The carpal rows are well aligned. Joint spaces are maintained. Small osteophytes at the first carpometacarpal joint. The soft tissues are unremarkable. Scattered vascular calcification. XR/XR wrist LT min 3V IMPRESSION: Mild degenerative change at the first carpometacarpal joint. No acute abnormalities.
--- NOTE | ~2022-09-07 | CT_ITS ---
EXAMINATION: CT OF THE LEFT WRIST. CLINICAL INFORMATION: Infection. Evaluate for joint effusion or evidence of infection. COMPARISON: Plain film left wrist today TECHNIQUE: 85 mL Omnipaque 350 injected intravenously. Axial images obtained through the left wrist. Coronal and sagittal reformatted images are performed at CT scanner FINDINGS: No abscess. No focal fluid collection. No acute abnormality. No abnormality of the tendon or the soft tissues. The fat planes throughout the wrist are normal. No osseous abnormality. Joint spaces are normal. No soft tissue calcification. Normal enhancement of the vasculature. CT/CT wrist LT w IV con IMPRESSION: Normal CT of the left wrist. If pain persists consider MRI for follow-up.
[2022-09-07 16:28] VITALS: BP 145/88; PULSE 84; RESP 20; TEMP 36.3; O2SAT 96; BMI 32.3
--- NOTE | 2022-09-07 16:28 | ED_ITS ---
HPI - Extremity Injury (Upper) General Chief Complaint: Extremity Problem <Nunu Torres CNP - Last Filed: 09/07/22 16:31> Stated Complaint: L arm pain <Nunu Torres CNP - Last Filed: 09/07/22 16:31> Time Seen by Provider: 09/07/22 16:47 <Nunu Torres CNP - Last Filed: 09/07/22 16:31> History of Present Illness HPI narrative: patient complains of left wrist pain which began this morning and has become progressively more severe over the hours, he does not recall any injury today but he was scratched by his cat on the back of his wrist several weeks ago and has been picking at the area He denies fever chills numbness or weakness, no other joint pains or rashes <SANKET Heart - Last Filed: 09/07/22 19:23> Related Data Home Medications: Home Medications Medication Instructions Recorded Confirmed pramipexole 0.5 mg tablet 0.5 mg PO BID@0430,1630 06/30/20 09/07/22 cholecalciferol (vitamin D3) 25 2,000 unit PO DAILY 12/14/20 09/07/22 mcg (1,000 unit) capsule (Vitamin D3) albuterol sulfate 90 mcg/actuation 2 puff inhalation Q4H PRN 09/07/22 09/07/22 aerosol inhaler (ProAir HFA) shortness of breath or wheezing apixaban 5 mg tablet (Eliquis) 5 mg PO BID@0430,1630 09/07/22 09/07/22 buprenorphine HCl 750 mcg buccal 750 mcg buccal BID@0430,1630 09/07/22 09/07/22 film (Belbuca) dronedarone 400 mg tablet (Multaq) 400 mg PO BID@0430,1630 09/07/22 09/07/22 empagliflozin 25 mg tablet 25 mg PO DAILY 09/07/22 09/07/22 (Jardiance) Previous Rx's Medication Instructions Recorded diltiazem HCl 120 mg 120 mg PO DAILY 90 days #90 caps 01/26/22 capsule,extended release 24 hr rosuvastatin 40 mg tablet 40 mg PO DAILY #90 tabs 05/15/22 amoxicillin 500 mg-potassium 1 tab PO BID #14 tabs 09/07/22 clavulanate 125 mg tablet (Augmentin) oxycodone 5 mg tablet 5 mg PO BID PRN pain #7 tabs 09/07/22 <Nunu Torres CNP - Last Filed: 09/07/22 16:31> Allergies/Adverse Reactions: Allergies Allergy/AdvReac Type Severity Reaction Status Date / Time No Known Allergies Allergy Verified 05/17/22 09:55 [No Known Allergies*] <Nunu Torres CNP - Last Filed: 09/07/22 16:31> Review of Systems Review of Systems: no headache no neck pain no chest pain no shortness of breath no abdominal pain no nausea or vomiting no dysuria <SANKET Heart - Last Filed: 09/07/22 19:23> Yes all other systems are reviewed and are negative <SANKET Heart - Last Filed: 09/07/22 19:23> [facility] Past Medical History [facility] Narrative: medical history includes diabetes, atrial fibrillation sleep apnea, uses Eliquis for AFib anticoagulation <SANKET Heart - Last Filed: 09/07/22 19:23> Source: nursing notes reviewed <SANKET Heart - Last Filed: 09/07/22 19:23> Medical History: Medical History COPD (chronic obstructive pulmonary disease) Essential (primary) hypertension Insomnia Obstructive sleep apnea Opioid dependence with unspecified opioid-induced disorder PAF (paroxysmal atrial fibrillation) Peripheral vascular disease due to secondary diabetes Personal history of nicotine dependence Sleep disorder Type 2 diabetes mellitus without complications Vitamin D deficiency <Nunu Torres CNP - Last Filed: 09/07/22 16:31> Surgical History: Surgical History History of colostomy History of colostomy reversal History of dental surgery History of hernia repair History of incisional hernia repair History of inguinal hernia repair <Nunu Torres CNP - Last Filed: 09/07/22 16:31> Family History Family History: Family History Father No problems noted. Mother Lung cancer, Onset Age: 48 Brother No problems noted. Brother No problems noted. Brother No problems noted. Sister No problems noted. <Nunu Torres CNP - Last Filed: 09/07/22 16:31> Social History Social History: Social History Household Members: Spouse Housing: Apartment Do you presently have visiting nurse or other home services: No Alcohol intake: never Patient Tobacco Use Status: Current everyday Tobacco user Tobacco use type: Cigarette Cigarette Packs Per Day: 1 Cigarettes Per Day: 20.0 Years Smoked: (onset 11yo, 1ppd x 45yrs, 45pyh) Smoked in Last 30 Days: Yes e-Cigarette/Vaping Use: Never Used Second Hand Smoke Exposure: Yes Use of substances other than those prescribed or required for medical reasons: Yes Substance Use Type: Marijuana Advance Directives: Yes Advance Directives on File: Yes Advance Directives Date on File: 02/01/21 service: No Current occupational status: disabled Cognitive needs: No Hearing needs: No Vision needs: Yes (glasses) <Nunu Torres CNP - Last Filed: 09/07/22 16:31> Physical Exam Vital Signs: Vital Signs: Last Vital Signs Temp 98.0 F 09/07/22 20:22 Pulse 68 09/07/22 20:22 Resp 18 09/07/22 20:22 BP 123/76 09/07/22 20:22 Pulse Ox 95 09/07/22 20:22 O2 Del Method 09/07/22 20:22 BMI result Body Mass Index 32.3 <Nunu Torres CNP - Last Filed: 09/07/22 16:31> Vital Signs: Last Vital Signs Temp 98.0 F 09/07/22 20:22 Pulse 68 09/07/22 20:22 Resp 18 09/07/22 20:22 BP 123/76 09/07/22 20:22 Pulse Ox 95 09/07/22 20:22 O2 Del Method 09/07/22 20:22 BMI result Body Mass Index 32.3 <SANKET Heart - Last Filed: 09/07/22 19:23> Vital Signs: Last Vital Signs Temp 98.0 F 09/07/22 20:22 Pulse 68 01/06/23 20:22 Resp 18 09/07/22 20:22 BP 123/76 09/07/22 20:22 Pulse Ox 95 09/07/22 20:22 O2 Del Method 09/07/22 20:22 BMI result Body Mass Index 32.3 <Paris Moses MD - Last Filed: 09/07/22 21:09> general appearance is no acute distress The eyes anicteric no pallor The neck is supple Chest clear to auscultation bilateral Heart no murmur Abdomen soft nontender Extremities the left wrist is held in a neutral position, patient cannot rotate and extend or flex it there is mild swelling there is tenderness over volar and dorsal surfaces of the wrist, the skin over the wrist is warm with some mild redness There are small scabbed wounds over the dorsal wrist and the dorsal hand, there is no lymphangitis, there is good range of motion on flexion in the fingers on both flexion and extension Skin no rashes <SANKET Heart - Last Filed: 09/07/22 19:23> Course Course Course Narrative: This is an RME: Additional HPI, ROS, PE not included below will be deferre d to primary provider. Patient is a 56-year-old male presents emergency department for evaluation of left wrist pain. He reports awaking this morning with volar wrist pain, predominantly lower aspect but also radial aspect, with swelling. Denies any particular injury. He is right-hand dominant. He is endorsing some numbness to the hand. States he is unable to move the left wrist due to pain. Plan: XR left wrist <Nunu Torres CNP - Last Filed: 09/07/22 16:31> This is an RME: Additional HPI, ROS, PE not included below will be deferred to primary provider. Patient is a 56-year-old male presents emergency department for evaluation of left wrist pain. He reports awaking this morning with volar wrist pain, predominantly lower aspect but also radial aspect, with swelling. Denies any particular injury. He is right-hand dominant. He is endorsing some numbness to the hand. States he is unable to move the left wrist due to pain. Plan: XR left wrist patient with 1 day of onset of pain in the left wrist it is become severe and at this point he is unable to flex or extend or rotate the wrist The wrist mildly red, tender but not significantly swollen Differential includes cellulitis tenosynovitis septic joint gout inflammatory arthritis Case was discussed with Dr. Moses who advised blood work and a CT scan of the wrist At 19:00 the white count was back at 12.4, CRP was normal at 0.11, ESR pending, CT pending Case was signed out at 19:[address] Moses <SANKET Heart - Last Filed: 09/07/22 19:23> Medications Administered Discontinued Medications Generic Name Dose Route Start Last Admin Trade Name Freq PRN Reason Stop Dose Admin Piperacillin Sod/Tazobactam 50 mls @ 100 mls/hr 09/07/22 17:46 09/07/22 19:24 Sod 3.375 gm/ Sodium Chloride IV 09/07/22 18:15 Infused ONCE ONE Infusion Vancomycin HCl 2,000 mg/ 540 mls @ 270 mls/hr 09/07/22 18:00 09/07/22 19:29 Sodium Chloride IV 09/07/22 19:59 270 mls/hr ONCE ONE Administration Iohexol 100 ml 09/07/22 19:17 09/07/22 19:17 Iohexol 350 Mg/Ml 100 Ml Infus..Btl IV 09/07/22 19:18 85 ml ONCE ONE Administration Morphine Sulfate 4 mg 09/07/22 19:19 09/07/22 19:28 Morphine Sulfate 4 Mg/Ml Cartridge IVPUSH 09/07/22 19:20 4 mg ONCE ONE Administration Protocol <Nunu Torres CNP - Last Filed: 09/07/22 16:31> Medications Administered Discontinued Medications Generic Name Dose Route Start Last Admin Trade Name Freq PRN Reason Stop Dose Admin Piperacillin Sod/Tazobactam 50 mls @ 100 mls/hr 09/07/22 17:46 09/07/22 19:24 Sod 3.375 gm/ Sodium Chloride IV 09/07/22 18:15 Infused ONCE ONE Infusion Vancomycin HCl 2,000 mg/ 540 mls @ 270 mls/hr 09/07/22 18:00 09/07/22 19:29 Sodium Chloride IV 09/07/22 19:59 270 mls/hr ONCE ONE Administration Iohexol 100 ml 09/07/22 19:17 09/07/22 19:17 Iohexol 350 Mg/Ml 100 Ml Infus..Btl IV 09/07/22 19:18 85 ml ONCE ONE Administration Morphine Sulfate 4 mg 09/07/22 19:19 09/07/22 19:28 Morphine Sulfate 4 Mg/Ml Cartridge IVPUSH 09/07/22 19:20 4 mg ONCE ONE Administration Protocol <SANKET Heart - Last Filed: 09/07/22 19:23> Medications Administered Discontinued Medications Generic Name Dose Route Start Last Admin Trade Name Audi PRN Reason Stop Dose Admin Piperacillin Sod/Tazobactam 50 mls @ 100 mls/hr 09/07/22 17:46 09/07/22 19:24 Sod 3.375 gm/ Sodium Chloride IV 09/07/22 18:15 Infused ONCE ONE Infusion Vancomycin HCl 2,000 mg/ 540 mls @ 270 mls/hr 09/07/22 18:00 09/07/22 19:29 Sodium Chloride IV 09/07/22 19:59 270 mls/hr ONCE ONE Administration Iohexol 100 ml 09/07/22 19:17 09/07/22 19:17 Iohexol 350 Mg/Ml 100 Ml Infus..Btl IV 09/07/22 19:18 85 ml ONCE ONE Administration Morphine Sulfate 4 mg 09/07/22 19:19 09/07/22 19:28 Morphine Sulfate 4 Mg/Ml Cartridge IVPUSH 09/07/22 19:20 4 mg ONCE ONE Administration Protocol <Paris Moses MD - Last Filed: 09/07/22 21:09> Medical Decision Making Medical Decision Making MDM Narrative: CT scan of the wrist is normal. On physical exam, the wrist looks within normal limits, no swelling, no erythema. Patient has significant limited range of motion due to pain. Patient was given vanco and Zosyn given the recent history of a cat bite that was left untreated for approximately a month. Patient has an eschar on the top of the wrist, but does not seem to be draining any fluid. There is no cellulitis present either. Uric acid within normal limits. Patient does not have history of gout or pseudogout. Patient states that the pain is not self on the joint but more on the dorsal aspect of the wrist, skin looks within normal limits, no vesicles, no erythema. Patient will be provided with antibiotics given his slightly elevated white blood cell count and the above-mentioned history. Patient will follow-up with Orthopedics, patient will be provided with a sling <Paris Moses MD - Last Filed: 09/07/22 21:09> Lab Data [facility] Lab Attestation statement: I reviewed the patient's lab results. <Paris Moses MD - Last Filed: 09/07/22 21:09> Result Diagrams: 09/07/22 18:15 09/07/22 18:15 <Nunu Torres CNP - Last Filed: 09/07/22 16:31> Labs: Lab Results 09/07/22 09/07/22 09/07/22 Range/Units 18:15 18:15 18:15 WBC 12.4 H (4.8-10.8) X10*3/uL RBC 5.51 (4.60-5.80) X10*6/uL Hgb 15.4 (14.0-18.0) g/dl Hct 46.3 (42.0-52.0) % MCV 84.0 (80.0-98.0) fL MCH 27.9 (27.0-33.0) pg MCHC 33.3 (31.0-36.0) g/dl RDW 15.1 (11.0-16.0) % Plt Count 272 (160-400) X10*3/uL MPV 10.2 (9.4-12.4) fL Immature Gran % (Auto) 0.6 H (0.0-0.4) % Neut % (Auto) 56.4 (45-73) % Lymph % (Auto) 33.8 (20-40) % [place] % (Auto) 7.2 (2-11) % Eos % (Auto) 1.3 (0-4) % Baso % (Auto) 0.7 (0-2) % Lymph # (Auto) 4.2 (1.2-4.9) X10*3/uL [place] # (Auto) 0.9 (0.1-1.2) X10*3/uL Eos # (Auto) 0.2 (0.0-0.4) X10*3/uL Baso # (Auto) 0.1 (0.0-0.2) X10*3/uL Abs Immat Gran (auto) 0.07 H (0.00-0.03) X10*3/uL Absolute Neuts (auto) 7.0 (2.0-8.3) x10*3/uL Absolute Nucleated RBC 0.000 (0.0-0.012) X10*3/uL Nucleated RBC % (auto) 0.0 (0.0-0.2) /100WBC ESR 9 (0-15) MM/HR Sodium 137 (135-145) mmol/L Potassium 4.4 (3.3-5.1) mmol/L Chloride 104 (96-108) mmol/L Carbon Dioxide 24 (22-29) mmol/L Anion Gap 13 (12-20) BUN 24 H (9-16) mg/dL Creatinine 0.88 (0.5-1.4) mg/dL Estim Creat Clear Calc 103.1 Estimated GFR > 60 Random Glucose 248 H (60-115) mg/dL Uric Acid 3.2 L (3.4-7.0) mg/dL Calcium 9.4 (8.4-10.2) mg/dL C-Reactive Protein 0.11 (< or = 0.50) mg/dL <Nunu Torres, OPERATIONS TECH - Last Filed: 09/07/22 16:31> Lab Results 09/07/22 09/07/22 09/07/22 Range/Units 18:15 18:15 18:15 WBC 12.4 H (4.8-10.8) X10*3/uL RBC 5.51 (4.60-5.80) X10*6/uL Hgb 15.4 (14.0-18.0) g/dl Hct 46.3 (42.0-52.0) % MCV 84.0 (80.0-98.0) fL MCH 27.9 (27.0-33.0) pg MCHC 33.3 (31.0-36.0) g/dl RDW 15.1 (11.0-16.0) % Plt Count 272 (160-400) X10*3/uL MPV 10.2 (9.4-12.4) fL Immature Gran % (Auto) 0.6 H (0.0-0.4) % Neut % (Auto) 56.4 (45-73) % Lymph % (Auto) 33.8 (20-40) % [place] % (Auto) 7.2 (2-11) % Eos % (Auto) 1.3 (0-4) % Baso % (Auto) 0.7 (0-2) % Lymph # (Auto) 4.2 (1.2-4.9) X10*3/uL [place] # (Auto) 0.9 (0.1-1.2) X10*3/uL Eos # (Auto) 0.2 (0.0-0.4) X10*3/uL Baso # (Auto) 0.1 (0.0-0.2) X10*3/uL Abs Immat Gran (auto) 0.07 H (0.00-0.03) X10*3/uL Absolute Neuts (auto) 7.0 (2.0-8.3) x10*3/uL Absolute Nucleated RBC 0.000 (0.0-0.012) X10*3/uL Nucleated RBC % (auto) 0.0 (0.0-0.2) /100WBC ESR 9 (0-15) MM/HR Sodium 137 (135-145) mmol/L Potassium 4.4 (3.3-5.1) mmol/L Chloride 104 (96-108) mmol/L Carbon Dioxide 24 (22-29) mmol/L Anion Gap 13 (12-20) BUN 24 H (9-16) mg/dL Creatinine 0.88 (0.5-1.4) mg/dL Estim Creat Clear Calc 103.1 Estimated GFR > 60 Random Glucose 248 H (60-115) mg/dL Uric Acid 3.2 L (3.4-7.0) mg/dL Calcium 9.4 (8.4-10.2) mg/dL C-Reactive Protein 0.11 (< or = 0.50) mg/dL <SANKET Heart - Last Filed: 09/07/22 19:23> Lab Results 09/07/22 09/07/22 09/07/22 Range/Units 18:15 18:15 18:15 WBC 12.4 H (4.8-10.8) X10*3/uL RBC 5.51 (4.60-5.80) X10*6/uL Hgb 15.4 (14.0-18.0) g/dl Hct 46.3 (42.0-52.0) % MCV 84.0 (80.0-98.0) fL MCH 27.9 (27.0-33.0) pg MCHC 33.3 (31.0-36.0) g/dl RDW 15.1 (11.0-16.0) % Plt Count 272 (160-400) X10*3/uL MPV 10.2 (9.4-12.4) fL Immature Gran % (Auto) 0.6 H (0.0-0.4) % Neut % (Auto) 56.4 (45-73) % Lymph % (Auto) 33.8 (20-40) % [place] % (Auto) 7.2 (2-11) % Eos % (Auto) 1.3 (0-4) % Baso % (Auto) 0.7 (0-2) % Lymph # (Auto) 4.2 (1.2-4.9) X10*3/uL [place] # (Auto) 0.9 (0.1-1.2) X10*3/uL Eos # (Auto) 0.2 (0.0-0.4) X10*3/uL Baso # (Auto) 0.1 (0.0-0.2) X10*3/uL Abs Immat Gran (auto) 0.07 H (0.00-0.03) X10*3/uL Absolute Neuts (auto) 7.0 (2.0-8.3) x10*3/uL Absolute Nucleated RBC 0.000 (0.0-0.012) X10*3/uL Nucleated RBC % (auto) 0.0 (0.0-0.2) /100WBC ESR 9 (0-15) MM/HR Sodium 137 (135-145) mmol/L Potassium 4.4 (3.3-5.1) mmol/L Chloride 104 (96-108) mmol/L Carbon Dioxide 24 (22-29) mmol/L Anion Gap 13 (12-20) BUN 24 H (9-16) mg/dL Creatinine 0.88 (0.5-1.4) mg/dL Estim Creat Clear Calc 103.1 Estimated GFR > 60 Random Glucose 248 H (60-115) mg/dL Uric Acid 3.2 L (3.4-7.0) mg/dL Calcium 9.4 (8.4-10.2) mg/dL C-Reactive Protein 0.11 (< or = 0.50) mg/dL <Paris Moses MD - Last Filed: 09/07/22 21:09> Radiology Impression Discussion of test interpretation with radiology: I have reviewed the radiologist's reading. <Paris Moses MD - Last Filed: 09/07/22 21:09> Radiologist Impression: INDINGS: No abscess. No focal fluid collection. No acute abnormality. No abnormality of the tendon or the soft tissues. The fat planes throughout the wrist are normal. No osseous abnormality. Joint spaces are normal. No soft tissue calcification. Normal enhancement of the vasculature. CT/CT wrist LT w IV con IMPRESSION: Normal CT of the left wrist. If pain persists consider MRI for follow-up. <Paris Moses MD - Last Filed: 09/07/22 21:09> Discharge Plan Discharge Clinical Impression: Acute pain of left wrist <Nunu Torres CNP - Last Filed: 09/07/22 16:31> Patient Disposition: Home, Self-Care <Nunu Torers CNP - Last Filed: 09/07/22 16:31> Instructions: Arthralgia (ED) <Nunu Torres CNP - Last Filed: 09/07/22 16:31> Additional Instructions: Please follow-up with your primary care physician tomorrow. If the pain persist, you will likely need an MRI. If you have any worsening or new symptoms, please return to the emergency room or call 911 <Nunu Torres CNP - Last Filed: 09/07/22 16:31> Prescriptions: New oxycodone 5 mg tablet 5 mg PO BID PRN (Reason: pain) Qty: 7 0RF Rx Instructions: Partial Fill upon patient request. amoxicillin-pot clavulanate [Augmentin] 500-125 mg tablet 1 tab PO BID Qty: 14 0RF No Action diltiazem HCl 120 mg capsule,extended release 24hr 120 mg PO DAILY 90 Days Qty: 90 3RF rosuvastatin 40 mg tablet 40 mg PO DAILY Qty: 90 3RF cholecalciferol (vitamin D3) [Vitamin D3] 25 mcg (1,000 unit) Capsule 2,000 unit PO DAILY albuterol sulfate [ProAir HFA] 90 mcg/actuation HFA aerosol inhaler 2 puff inhalation Q4H PRN (Reason: shortness of breath or wheezing) Multaq 400 mg tablet 400 mg PO BID@429,1630 Eliquis 5 mg tablet 5 mg PO BID@429,163 Jardiance 25 mg tablet 25 mg PO DAILY buprenorphine HCl [Belbuca] 750 mcg film 750 mcg buccal BID@429,163 Rx Instructions: Brand name only pramipexole 0.5 mg tablet 0.5 mg PO BID@429,1629 <Nunu Torres CNP - Last Filed: 09/07/22 16:31> Referrals: Rita Bailey PA-C [Phys[employer]] - 09/10/22 <Nunu Torres CNP - Last Filed: 09/07/22 16:31>
[2022-09-07 18:15] VITALS: BP 128/72; PULSE 65; RESP 18; TEMP 36.7; O2SAT 96
[2022-09-07 18:22] LABS: MANUAL DIFF FLAG NO
[2022-09-07] MEDS: Piperacillin Sodium/Tazobactam 3.375 GM in 0.9 % Sodium Chloride 50 ML IV (18:34)
--- NOTE | 2022-09-07 18:35 | PC.NURSE ---
iv inserted, labs drawn, iv abx started per order
[2022-09-07 18:36] LABS: Anion Gap 13 (12-20); Blood Urea Nitrogen 24 mg/dL (9-16); C Reactive Protein 0.11 mg/dL (< or = 0.50); Calcium 9.4 mg/dL (8.4-10.2); Carbon Dioxide 24 mmol/L (22-29); Chloride 104 mmol/L (96-108); Creatinine Clr Calc Pharmacy 103.1; Estimated Glomerular Filt Rate > 60; Glucose Random 248 mg/dL (60-115); Potassium 4.4 mmol/L (3.3-5.1); Sodium 137 mmol/L (135-145)
[2022-09-07 18:37] LABS: Basophils Absolute Auto 0.1 X10*3/uL (0.0-0.2); Basophils Percent Auto 0.7 % (0-2); Eosinophils Absolute Auto 0.2 X10*3/uL (0.0-0.4); Eosinophils Percent Auto 1.3 % (0-4); Hematocrit 46.3 % (42.0-52.0); Hemoglobin 15.4 g/dl (14.0-18.0); Imm Gran Abs Auto 0.07 X10*3/uL (0.00-0.03); Imm Gran Pct Auto 0.6 % (0.0-0.4); Lymphocytes Absolute Auto 4.2 X10*3/uL (1.2-4.9); Lymphocytes Percent Auto 33.8 % (20-40); Mean Corpuscular HGB Conc 33.3 g/dl (31.0-36.0); Mean Corpuscular Hemoglobin 27.9 pg (27.0-33.0); Mean Platelet Volume 10.2 fL (9.4-12.4); Monocytes Absolute Auto 0.9 X10*3/uL (0.1-1.2); Monocytes Percent Auto 7.2 % (2-11); Neutrophils Percent Auto 56.4 % (45-73); Platelet Count 272 X10*3/uL (160-400); Red Blood Count 5.51 X10*6/uL (4.60-5.80); Red Cell Distribution Width 15.1 % (11.0-16.0); White Blood Count 12.4 X10*3/uL (4.8-10.8)
[2022-09-07] MEDS: iohexoL 350 MG/ML 100 ML INFUS..BTL IV (19:17)
[2022-09-07 19:22] LABS: Erythrocyte Sedimentation Rate 9 MM/HR (0-15)
[2022-09-07 19:23] LABS: Uric Acid 3.2 mg/dL (3.4-7.0)
[2022-09-07] MEDS: Morphine Sulfate 4 MG/ML CARTRIDGE IVPUSH (19:28)
--- NOTE | 2022-09-07 19:34 | PHA.MEDREC ---
Pharmacy Consult ? Medication Reconciliation Pharmacy has completed the medication reconciliation. Pt takes his BID meds earlier at 0430 and 1630, stated that he is being taken off of his Belbuca. Told pt if he wanted to take it here it would have to be brought in, but he did not seem to be concerned about taking it.
[2022-09-07 20:22] VITALS: BP 123/76; PULSE 68; RESP 18; TEMP 36.7; O2SAT 95
--- NOTE | 2022-09-07 20:31 | PC.NURSE ---
patient a&ox3, vss, pt continues to c/o 05/12 LUE pain, iv abx continue to run, call wesley within reach, will continue to monitor.
[2022-09-07] MEDS: oxyCODONE HCl Immed Release 5 MG TABLET PO (21:40)
== END 2022-09-07 21:48 | disposition home or self-care (01) ==
PROVIDERS: Physician Assistant Medical; Emergency Provider Emergency Medicine; PCP Internal Medicine
DX: M25.532 Pain in left wrist (principal); F17.210 Nicotine dependence, cigarettes, uncomplicated; Z71.6 Tobacco abuse counseling; Z79.899 Other long term (current) drug therapy
CPT/HCPCS: 36415; 73110; 73201; 80048; 84550; 85025; 85652; 86140; 87040; 96365; 96366; 96367; 96375; 99284; J2270; J2543; J3370; Q9967

== ENCOUNTER 2022-09-08 06:34 | Emergency (ER) | payer OTHER, SELFPAY ==
[2022-09-08 06:39] VITALS: BP 153/92; PULSE 85; RESP 16; TEMP 36.3; O2SAT 97; BMI 32.3
--- NOTE | 2022-09-08 06:56 | ED.EXTPRO ---
HPI - Extremity Problem General Chief complaint: Extremity Injury, Upper Stated complaint: l arm pain Time Seen by Provider: 09/08/22 06:56 Source: patient and other ( significant other) Mode of arrival: ambulatory Limitations: no limitations History of Present Illness HPI Narrative: 56-year-old male who return to the emergency department for re-evaluation of left wrist pain. Patient states the pain came on suddenly yesterday in the morning. States the pain is gotten progressively worse. The pain is a constant, throbbing/pressure-like pain which is greater than 10/10. He states that whenever he moves his left wrist the pain is severe. The patient was seen in the emergency department yesterday and had an extensive workup which included a CBC, BMP, ESR, CRP and CT scan of the wrist which did not reveal a clear etiology for his pain. The patient had a remote cat scratch months ago to the dorsal aspect of his wrist and there was a small scab over the dorsal aspect of his wrist which she states he has been picking. the patient was treated yesterday with IV Zosyn and vancomycin, he also received morphine IV. He was diagnosed with acute wrist pain of unclear etiology, discharged with a prescription for Augmentin 500/125 b.i.d. for 14 days and oxycodone. He did not get these medications filled. He states since leaving the emergency department at at around 22:00 hours the pain is been constant and has not been relieved with Tylenol. Patient does have a history of chronic pain syndrome of his abdomen which he states is secondary to diverticulosis/ diverticulitis and a distended abdomen. The patient states that he was taking buprenorphine film daily but has been off this for 1 week. States that he stop this medication since his insurance would not pay for it anymore. The patient is on EliAQHis. Related Data Home Medications Medication Instructions Recorded Confirmed pramipexole 0.5 mg tablet 0.5 mg PO BID@8407,1104 06/30/20 09/07/22 cholecalciferol (vitamin D3) 25 2,000 unit PO DAILY 12/14/20 09/07/22 mcg (1,000 unit) capsule (Vitamin D3) albuterol sulfate 90 mcg/actuation 2 puff inhalation Q4H PRN 09/07/22 09/07/22 aerosol inhaler (ProAir HFA) shortness of breath or wheezing apixaban 5 mg tablet (Eliquis) 5 mg PO BID@0430,1630 09/07/22 09/07/22 buprenorphine HCl 750 mcg buccal 750 mcg buccal BID@0430,1630 09/07/22 09/07/22 film (Belbuca) dronedarone 400 mg tablet (Multaq) 400 mg PO BID@0430,1630 09/07/22 09/07/22 empagliflozin 25 mg tablet 25 mg PO DAILY 09/07/22 09/07/22 (Jardiance) Previous Rx's Medication Instructions Recorded diltiazem HCl 120 mg 120 mg PO DAILY 90 days #90 caps 01/26/22 capsule,extended release 24 hr rosuvastatin 40 mg tablet 40 mg PO DAILY #90 tabs 05/15/22 amoxicillin 500 mg-potassium 1 tab PO BID #14 tabs 09/07/22 clavulanate 125 mg tablet (Augmentin) colchicine 0.6 mg tablet (Colcrys) 0.6 mg PO ONCE #6 tabs 09/08/22 morphine 15 mg immediate release 15 mg PO Q4-6H PRN pain #14 tabs 09/08/22 tablet Allergies Allergy/AdvReac Type Severity Reaction Status Date / Time No Known Allergies Allergy Verified 05/17/22 09:55 [No Known Allergies*] Review of Systems Review of Systems: Yes all other systems are reviewed and are negative [facility] Past Medical History [facility] Narrative: Social history: He denies tobacco and alcohol use. He states that he does use marijuana but no other drugs. Medical History COPD (chronic obstructive pulmonary disease) Essential (primary) hypertension Insomnia Obstructive sleep apnea Opioid dependence with unspecified opioid-induced disorder PAF (paroxysmal atrial fibrillation) Peripheral vascular disease due to secondary diabetes Personal history of nicotine dependence Sleep disorder Type 2 diabetes mellitus without complications Vitamin D deficiency Surgical History History of colostomy History of colostomy reversal History of dental surgery History of hernia repair History of incisional hernia repair History of inguinal hernia repair Family History Family History Father No problems noted. Mother Lung cancer, Onset Age: 48 Brother No problems noted. Brother No problems noted. Brother No problems noted. Sister No problems noted. Social History Social History Household Members: Spouse Housing: Apartment Do you presently have visiting nurse or other home services: No Alcohol intake: never Patient Tobacco Use Status: Current everyday Tobacco user Tobacco use type: Cigarette Cigarette Packs Per Day: 1 Cigarettes Per Day: 20.0 Years Smoked: (onset 11yo, 1ppd x 45yrs, 45pyh) e-Cigarette/Vaping Use: Never Used Second Hand Smoke Exposure: Yes Substance Use Type: Marijuana Advance Directives: Yes Advance Directives on File: Yes Advance Directives Date on File: 02/01/21 service: No Current occupational status: disabled Cognitive needs: No Hearing needs: No Vision needs: Yes (glasses) Physical Exam Vital Signs: Vital Signs: Last Vital Signs Temp 97.6 F 09/08/22 10:00 Pulse 68 09/08/22 10:00 Resp 18 09/08/22 10:22 BP 124/66 09/08/22 10:00 Pulse Ox 94 09/08/22 10:00 O2 Del Method 09/08/22 10:00 BMI result Body Mass Index 32.3 Vital signs reviewed, these are normal. General: Awake, alert, male patient, appears to be in distress secondary to his left wrist pain, he holds his hand in a flexed position and with any movement of the wrist he has significant discomfort. HEENT exam: Head was normocephalic atraumatic, pupils were equal round reactive light, sclera contact however normal, mouth revealed moist membranes Neck: Supple Lungs: Clear Heart: Regular rate rhythm, normal S1-S2, no murmurs rubs gallops abdomen: Soft, distended, normoactive bowel sounds, mild diffuse tenderness Extremities: The patient's left wrist is held in a flexed position, there is a cicatrix the dorsal aspect the wrist with no erythema or increased warmth noted on the wrist or hand. The patient has significant tenderness palpation over the wrist joint, with both flexion extension of the wrist the patient has severe discomfort. Medications Administered Discontinued Medications Generic Name Dose Route Start Last Admin Trade Name Freq PRN Reason Stop Dose Admin Ketorolac Tromethamine 15 mg 09/08/22 07:14 09/08/22 07:37 Ketorolac Tromethamine 15 Mg/Ml Vial IVPUSH 09/08/22 07:15 15 mg ONCE STA Administration Morphine Sulfate 4 mg 09/08/22 07:14 09/08/22 07:37 Morphine Sulfate 4 Mg/Ml Cartridge IVPUSH 09/08/22 07:15 4 mg ONCE STA Administration Protocol Morphine Sulfate 4 mg 09/08/22 10:07 09/08/22 10:22 Morphine Sulfate 4 Mg/Ml Cartridge IVPUSH 09/08/22 10:08 4 mg ONCE STA Administration Protocol Medical Decision Making Medical Decision Making [facility] Narrative: 56-year-old male who presents emergency department for evaluation of severe pain as left wrist x2 days, the pain started suddenly yesterday he does not report any injury. He did have a cat scratch injury to the wrist several months ago and there is a cicatrix over the left wrist but I do not think that this is related to a cat scratch. The patient does have significant tenderness palpation of his left wrist with significant pain with minimal movement either flexion extension of the wrist. There is no erythema or increased warmth. I did order laboratory evaluation to include CBC, CMP, ESR, CRP and uric acid. Patient was ordered to get Toradol 15 mg IV And morphine 4 mg IV. 1103: My laboratory interpretation is as follows: WBC elevated 13,400, glucose elevated 221. ESR and CRP were normal at 8 and 0.3. Uric acid was normal at 3.6. at this time I do not have a clear etiology for the patient's pain but I suspect that the patient has inflammatory arthritis such as gout or pseudogout. Given his normal ESR and CRP I think that Alyssa synovitis an infectious tenosynovitis is less likely. The patient had a negative CT scan of the wrist yesterday, we do not have MRI available today. The patient required a 2nd dose of morphine 4 mg IV to help with his pain. Patient was placed in a Velcro wrist splint. I did cancel his oxycodone prescription and prescribed morphine 15 mg every 4-6 hours as needed for pain not relieved by Tylenol. Patient cannot take ibuprofen since he is on Eliquis since multiple doses of ibuprofen will increase his risk for possible GI bleed. The patient was being treated with buprenorphine for chronic pain but he states that he is stop this medication therefore I do think it is appropriate to give him morphine at this time. Also, the patient will be treated with Colcrys for possible gout. Patient will need to follow-up with our orthopedic provider for re-evaluation in the next 2-3 days. I did tell the patient that you do not have MRI available this weekend and if his pain got worse he should go to the emergency department such as [facility] has MRI available to rule out the possibility of infectious tenosynovitis. Differential Diagnosis Differential diagnosis includes was not limited to gout, pseudogout, inflammatory arthritis, soft tissue infection, tenosynovitis, infectious tenosynovitis Lab Data [facility] Lab Attestation statement: I reviewed the patient's lab results. Please see [facility] for my interpretation of the laboratory results 09/08/22 07:31 09/08/22 07:31 Labs: Lab Results 09/08/22 09/08/22 09/08/22 Range/Units 07:31 07:31 07:31 WBC 13.4 H (4.8-10.8) X10*3/uL RBC 5.59 (4.60-5.80) X10*6/uL Hgb 15.7 (14.0-18.0) g/dl Hct 46.8 (42.0-52.0) % MCV 83.7 (80.0-98.0) fL MCH 28.1 (27.0-33.0) pg MCHC 33.5 (31.0-36.0) g/dl RDW 15.2 (11.0-16.0) % Plt Count 240 (160-400) X10*3/uL MPV 9.7 (9.4-12.4) fL Immature Gran % (Auto) 0.6 H (0.0-0.4) % Neut % (Auto) 71.7 (45-73) % Lymph % (Auto) 19.6 L (20-40) % [place] % (Auto) 6.4 (2-11) % Eos % (Auto) 1.0 (0-4) % Baso % (Auto) 0.7 (0-2) % Lymph # (Auto) 2.6 (1.2-4.9) X10*3/uL [place] # (Auto) 0.9 (0.1-1.2) X10*3/uL Eos # (Auto) 0.1 (0.0-0.4) X10*3/uL Baso # (Auto) 0.1 (0.0-0.2) X10*3/uL Abs Immat Gran (auto) 0.08 H (0.00-0.03) X10*3/uL Absolute Neuts (auto) 9.6 H (2.0-8.3) x10*3/uL Absolute Nucleated RBC 0.000 (0.0-0.012) X10*3/uL Nucleated RBC % (auto) 0.0 (0.0-0.2) /100WBC ESR 8 (0-15) MM/HR PT (10.0-13.1) SEC INR (0.9-1.1) APTT (26.0-36.4) SEC Sodium 139 (135-145) mmol/L Potassium 4.3 (3.3-5.1) mmol/L Chloride 104 (96-108) mmol/L Carbon Dioxide 24 (22-29) mmol/L Anion Gap 15 (12-20) BUN 17 H (9-16) mg/dL Creatinine 0.84 (0.5-1.4) mg/dL Estim Creat Clear Calc 108.0 Estimated GFR > 60 Random Glucose 221 H (60-115) mg/dL Lactic Acid (0.5-2.0) mmol/L Uric Acid 3.6 (3.4-7.0) mg/dL Calcium 9.5 (8.4-10.2) mg/dL Total Bilirubin 0.7 (0.0-1.0) mg/dL AST 19 (5-37) U/L ALT 14 (0-40) U/L Alkaline Phosphatase 81 (39-117) U/L Total Creatine Kinase 82 (38-174) U/L C-Reactive Protein 0.13 (< or = 0.50) mg/dL Total Protein 7.0 (6.5-8.0) g/dL Albumin 4.2 (3.5-5.0) g/dL 09/08/22 09/08/22 Range/Units 07:31 07:31 WBC (4.8-10.8) X10*3/uL RBC (4.60-5.80) X10*6/uL Hgb (14.0-18.0) g/dl Hct (42.0-52.0) % MCV (80.0-98.0) fL MCH (27.0-33.0) pg MCHC (31.0-36.0) g/dl RDW (11.0-16.0) % Plt Count (160-400) X10*3/uL MPV (9.4-12.4) fL Immature Gran % (Auto) (0.0-0.4) % Neut % (Auto) (45-73) % Lymph % (Auto) (20-40) % [place] % (Auto) (2-11) % Eos % (Auto) (0-4) % Baso % (Auto) (0-2) % Lymph # (Auto) (1.2-4.9) X10*3/uL [place] # (Auto) (0.1-1.2) X10*3/uL Eos # (Auto) (0.0-0.4) X10*3/uL Baso # (Auto) (0.0-0.2) X10*3/uL Abs Immat Gran (auto) (0.00-0.03) X10*3/uL Absolute Neuts (auto) (2.0-8.3) x10*3/uL Absolute Nucleated RBC (0.0-0.012) X10*3/uL Nucleated RBC % (auto) (0.0-0.2) /100WBC ESR (0-15) MM/HR PT 13.9 H (10.0-13.1) SEC INR 1.2 H (0.9-1.1) APTT 40.3 H (26.0-36.4) SEC Sodium (135-145) mmol/L Potassium (3.3-5.1) mmol/L Chloride (96-108) mmol/L Carbon Dioxide (22-29) mmol/L Anion Gap (12-20) BUN (9-16) mg/dL Creatinine (0.5-1.4) mg/dL Estim Creat Clear Calc Estimated GFR Random Glucose (60-115) mg/dL Lactic Acid 1.3 (0.5-2.0) mmol/L Uric Acid (3.4-7.0) mg/dL Calcium (8.4-10.2) mg/dL Total Bilirubin (0.0-1.0) mg/dL AST (5-37) U/L ALT (0-40) U/L Alkaline Phosphatase (39-117) U/L Total Creatine Kinase (38-174) U/L C-Reactive Protein (< or = 0.50) mg/dL Total Protein (6.5-8.0) g/dL Albumin (3.5-5.0) g/dL Independent Historian Clinical information obtained from an independent historian. History obtained from or confirmed by: Other ( significant other) External Record Review External record reviewed: Other ( [place] prescription monitoring program- patient has was prescribed Buprenorphin 60 films monthly, last Rx 07/31/2022) Discharge Plan Discharge Clinical Impression: Acute pain of left wrist Gout Qualifiers: Gout site: wrist Laterality: left Patient Disposition: Home, Self-Care Instructions: Gout (ED) Additional Instructions: Your white blood cell count was slightly elevated. Your inflammatory markers (ESR and CRP) were normal which is reassuring. At this time, I am not certain what is causing your pain but I suspect that you have gout. An infection of your tendons and wrist is still a possibility. I am cancelling her oxycodone prescription at the pharmacy, do not pick this prescription up. DO NOT TAKE BUPRENORPHINE FILMS WHILE TAKING MORPHINE Take Tylenol (acetaminophen) 2 pills every 4-6 hours as needed for pain. For pain not relieved by Tylenol take morphine 15 mg pills, 1 pill every 4 hours as needed for pain. This medication will make you sleepy, do not drive or work while taking this medication. Morphine is a narcotic medication and can be addicting. If you are concerned about addiction you can ask the pharmacist for less pills or do not get this prescription filled. Take Colcrys (colchicine) 0.6 mg pills, 2 pills once and then 1 hour later take 1 pill. This medication last for 3 days. You can repeat this dose in 3 days if her still having pain. Keep the splint on your wrist. Call the orthopedic doctors on Saturday morning to try to get follow-up next week to be seen for your pain in for possible infection. We do not have MRI available over the weekend, if your pain is getting worse you may need an MRI to rule out infection of tendons of your wrists. If you are getting worse you should go to another emergency department that has MRI available, this would be [facility]. Prescriptions: New colchicine [Colcrys] 0.6 mg tablet 0.6 mg PO ONCE Qty: 6 0RF Rx Instructions: 1.2 mg orally, then 1 hour later take 0.6 mg orally, we repeat in 3 days morphine 15 mg tablet 15 mg PO Q4-6H PRN (Reason: pain) Qty: 14 0RF Rx Instructions: Patient may request partial fill; Partial Fill upon patient request. Discontinued oxycodone 5 mg tablet 5 mg PO BID PRN (Reason: pain) Qty: 7 0RF Rx Instructions: Partial Fill upon patient request. No Action diltiazem HCl 120 mg capsule,extended release 24hr 120 mg PO DAILY 90 Days Qty: 90 3RF rosuvastatin 40 mg tablet 40 mg PO DAILY Qty: 90 3RF cholecalciferol (vitamin D3) [Vitamin D3] 25 mcg (1,000 unit) Capsule 2,000 unit PO DAILY albuterol sulfate [ProAir HFA] 90 mcg/actuation HFA aerosol inhaler 2 puff inhalation Q4H PRN (Reason: shortness of breath or wheezing) Multaq 400 mg tablet 400 mg PO BID@0430,1630 Eliquis 5 mg tablet 5 mg PO BID@0430,1630 Jardiance 25 mg tablet 25 mg PO DAILY buprenorphine HCl [Belbuca] 750 mcg film 750 mcg buccal BID@0430,1630 Rx Instructions: Brand name only amoxicillin-pot clavulanate [Augmentin] 500-125 mg tablet 1 tab PO BID Qty: 14 0RF pramipexole 0.5 mg tablet 0.5 mg PO BID@0430,1630 Interventions: ED Discharge Assessment Last Done: 09/08/22 11:02
--- NOTE | 2022-09-08 06:58 | PC.NURSE ---
report given to DEENA Hill
[2022-09-08 07:36] LABS: MANUAL DIFF FLAG NO
[2022-09-08 07:37] VITALS: RESP 20
[2022-09-08] MEDS: Morphine Sulfate 4 MG/ML CARTRIDGE IVPUSH ×2 (07:37→10:22)
[2022-09-08] MEDS: Ketorolac Tromethamine 15 MG/ML VIAL IVPUSH (07:37)
[2022-09-08 07:38] LABS: Basophils Absolute Auto 0.1 X10*3/uL (0.0-0.2); Basophils Percent Auto 0.7 % (0-2); Eosinophils Absolute Auto 0.1 X10*3/uL (0.0-0.4); Hematocrit 46.8 % (42.0-52.0); Hemoglobin 15.7 g/dl (14.0-18.0); Imm Gran Abs Auto 0.08 X10*3/uL (0.00-0.03); Imm Gran Pct Auto 0.6 % (0.0-0.4); Lymphocytes Absolute Auto 2.6 X10*3/uL (1.2-4.9); Lymphocytes Percent Auto 19.6 % (20-40); Mean Corpuscular HGB Conc 33.5 g/dl (31.0-36.0); Mean Corpuscular Hemoglobin 28.1 pg (27.0-33.0); Mean Corpuscular Volume 83.7 fL (80.0-98.0); Mean Platelet Volume 9.7 fL (9.4-12.4); Monocytes Absolute Auto 0.9 X10*3/uL (0.1-1.2); Monocytes Percent Auto 6.4 % (2-11); Neutrophils Absolute Auto 9.6 x10*3/uL (2.0-8.3); Neutrophils Percent Auto 71.7 % (45-73); Platelet Count 240 X10*3/uL (160-400); Red Blood Count 5.59 X10*6/uL (4.60-5.80); Red Cell Distribution Width 15.2 % (11.0-16.0); White Blood Count 13.4 X10*3/uL (4.8-10.8)
[2022-09-08 07:44] LABS: INTERNATIONAL NORM RATIO 1.2 (0.9-1.1); Prothrombin Time 13.9 SEC (10.0-13.1)
[2022-09-08 07:46] LABS: Partial Thromboplastin Time 40.3 SEC (26.0-36.4)
[2022-09-08 07:49] LABS: Lactic Acid 1.3 mmol/L (0.5-2.0)
[2022-09-08 07:55] LABS: Alanine Aminotransferase 14 U/L (0-40); Albumin Level 4.2 g/dL (3.5-5.0); Alkaline Phosphatase 81 U/L (39-117); Anion Gap 15 (12-20); Aspartate Amino Transferase 19 U/L (5-37); Bilirubin Total 0.7 mg/dL (0.0-1.0); Blood Urea Nitrogen 17 mg/dL (9-16); C Reactive Protein 0.13 mg/dL (< or = 0.50); Calcium 9.5 mg/dL (8.4-10.2); Carbon Dioxide 24 mmol/L (22-29); Chloride 104 mmol/L (96-108); Estimated Glomerular Filt Rate > 60; Glucose Random 221 mg/dL (60-115); Potassium 4.3 mmol/L (3.3-5.1); Sodium 139 mmol/L (135-145); Uric Acid 3.6 mg/dL (3.4-7.0)
[2022-09-08 08:01] VITALS: BP 122/81; PULSE 75; RESP 18; TEMP 36.6; O2SAT 95
[2022-09-08 08:23] LABS: Erythrocyte Sedimentation Rate 8 MM/HR (0-15)
[2022-09-08 10:00] VITALS: BP 124/66; PULSE 68; RESP 18; TEMP 36.4; O2SAT 94
[2022-09-08 10:22] VITALS: RESP 18
--- NOTE | 2022-09-08 10:24 | PC.NURSE ---
no mri on weekend. plan to dc home. pt aware and denied having any questions.
== END 2022-09-08 11:02 | disposition home or self-care (01) ==
PROVIDERS: Emergency Provider Emergency Medicine Emergency Medical Services; PCP Internal Medicine
DX: M25.532 Pain in left wrist (principal); M10.032 Idiopathic gout, left wrist; I10 Essential (primary) hypertension; E11.9 Type 2 diabetes mellitus without complications; F11.20 Opioid dependence, uncomplicated; I48.0 Paroxysmal atrial fibrillation; Z79.01 Long term (current) use of anticoagulants
CPT/HCPCS: 36415; 80053; 82550; 83605; 84550; 85025; 85610; 85652; 85730; 86140; 96374; 96375; 96376; 99284; J1885; J2270

== ENCOUNTER → 2022-09-26 09:16 | Outpatient (BNVA) | payer OTHER, SELFPAY | PROVIDERS: Visit Provider Orthopaedic Surgery | DX: M10.9 Gout, unspecified (principal); F11.29 Opioid dependence with unspecified opioid-induced disorder; E11.51 Type 2 diabetes mellitus with diabetic peripheral angiopathy without gangrene; E11.65 Type 2 diabetes mellitus with hyperglycemia; F17.210 Nicotine dependence, cigarettes, uncomplicated | CPT/HCPCS: 99202 ==

== ENCOUNTER → 2022-10-08 08:11 | Outpatient (BNVA) | payer OTHER, SELFPAY | PROVIDERS: PCP Internal Medicine; Visit Provider Nurse Practitioner Family | DX: Z01.818 Encounter for other preprocedural examination (principal) | CPT/HCPCS: 99202 ==

== ENCOUNTER → 2022-11-06 09:14 | Outpatient (BNVA) | payer OTHER, SELFPAY | PROVIDERS: PCP Internal Medicine; Visit Provider Internal Medicine | DX: G47.33 Obstructive sleep apnea (adult) (pediatric) (principal); J44.9 Chronic obstructive pulmonary disease, unspecified | CPT/HCPCS: 99212 ==

== ENCOUNTER 2022-11-08 06:06 | Outpatient (REF) | payer OTHER, SELFPAY ==
[2022-11-08 08:07] LABS: Cholesterol 134 mg/dL; HDL Cholesterol 31 mg/dL; Triglycerides 716 mg/dL
[2022-11-08 09:41] LABS: Estimated Average Glucose 252 mg/dL; Hemoglobin A1c % 10.4 %
== END 2022-11-08 06:07 | disposition home or self-care (01) ==
LOC: HO.LAB 06:06
PROVIDERS: PCP Internal Medicine; Visit Provider Internal Medicine
DX: E11.9 Type 2 diabetes mellitus without complications (principal)
CPT/HCPCS: 36415; 80061; 83036

== ENCOUNTER → 2022-11-12 08:06 | Outpatient (BNVA) | payer OTHER, SELFPAY | PROVIDERS: PCP Internal Medicine; Referring Provider Internal Medicine; Visit Provider Internal Medicine | DX: Z01.810 Encounter for preprocedural cardiovascular examination (principal); I48.0 Paroxysmal atrial fibrillation; I73.9 Peripheral vascular disease, unspecified; E11.8 Type 2 diabetes mellitus with unspecified complications; Z51.81 Encounter for therapeutic drug level monitoring; Z79.899 Other long term (current) drug therapy | CPT/HCPCS: 93005; 99212 ==

== ENCOUNTER → 2023-02-04 08:17 | Outpatient (BNVA) | payer OTHER, SELFPAY | PROVIDERS: PCP Internal Medicine; Referring Provider Internal Medicine; Visit Provider Internal Medicine | DX: I48.91 Unspecified atrial fibrillation (principal) | CPT/HCPCS: 93005 ==

== ENCOUNTER 2023-04-30 10:02 | Day surgery (SDC) | payer OTHER, SELFPAY ==
[2023-04-26 11:11] VITALS: BMI 32.4
--- NOTE | 2023-04-29 11:40 | HO.ANESPROP2 ---
Documented by User: Adry Teresa NP 04/29/23 11:43 HPI - Anesthesia Eval Consult details Narrative: 57yo M for Colonoscopy Cardiac optimized Eliquis for afib PMFSH Active Problems Active Problems: All Active Problems (Updated 04/26/23 @ 11:03 by Stefani Lozano RN) Preoperative cardiovascular examination (Acute) Gout of left wrist (Acute) Myoclonus dystonia (Acute) Opioid dependence with unspecified opioid-induced disorder (Acute) PAF (paroxysmal atrial fibrillation) (Acute) Peripheral vascular disease due to secondary diabetes (Acute) Type 2 diabetes mellitus without complications (Acute) COPD (chronic obstructive pulmonary disease) (Acute) Personal history of nicotine dependence (Acute) Obstructive sleep apnea (Acute) Sleep disorder (Acute) Insomnia (Acute) Vitamin D deficiency (Acute) Past Medical History Medical History (Updated 04/26/23 @ 11:03 by Stefnai Lozano RN) COPD (chronic obstructive pulmonary disease) Essential (primary) hypertension Insomnia Obstructive sleep apnea Opioid dependence with unspecified opioid-induced disorder PAF (paroxysmal atrial fibrillation) Peripheral vascular disease due to secondary diabetes Personal history of nicotine dependence Sleep disorder Type 2 diabetes mellitus without complications Vitamin D deficiency Family History Family History Father No problems noted. Mother Lung cancer, Onset Age: 48 Brother No problems noted. Brother No problems noted. Brother No problems noted. Sister No problems noted. Surgical History Surgical History History of colostomy History of colostomy reversal History of dental surgery History of hernia repair History of incisional hernia repair History of inguinal hernia repair Social History Social History Household Members: Spouse Housing: Apartment Are you a primary career resource technician to a significant other at home: No Do you presently have visiting nurse or other home services: No Alcohol intake: never Patient Tobacco Use Status: Current everyday Tobacco user Tobacco use type: Cigarette Cigarette Packs Per Day: 1 Cigarettes Per Day: 20.0 Years Smoked: 45 e-Cigarette/Vaping Use: Never Used Second Hand Smoke Exposure: Yes Substance Use Type: Marijuana Advance Directives Date on File: 02/01/21 service: No Current occupational status: disabled Current occupation: right handed Cognitive needs: No Hearing needs: No Vision needs: Yes (glasses) Meds Allergies Allergy/AdvReac Type Severity Reaction Status Date / Time No Known Allergies Allergy Verified 02/21/23 10:52 [No Known Allergies*] Home Medications Medication Instructions Recorded Confirmed Last Taken Type pramipexole 0.5 mg tablet 0.5 mg PO BID@0430,1630 06/30/20 04/26/23 09/07/22 History cholecalciferol (vitamin D3) 25 2,000 unit PO DAILY 12/14/20 04/26/23 09/07/22 History mcg (1,000 unit) capsule (Vitamin D3) dronedarone 400 mg tablet (Multaq) 400 mg PO BID@0430,1630 09/07/22 04/26/23 04/30/23 History clonazepam 0.5 mg tablet 0.5 mg PO BEDTIME 04/26/23 04/26/23 Unknown History ropinirole 2 mg tablet 2 mg PO TID 04/26/23 04/26/23 Unknown History Exam Exam Date and Time: April 29, 2023 1140 Height,Weight and Vital Signs: Height 5 ft 8 in Weight 96.615 kg Pertinent Lab Results Pertinent Lab Results: Laboratory Tests 09/08/22 09/08/22 07:31 07:31 WBC 13.4 H Hgb 15.7 Hct 46.8 Plt Count 240 Sodium 139 Potassium 4.3 Chloride 104 Carbon Dioxide 24 BUN 17 H Creatinine 0.84 Narrative Narrative: EKG 01/2023 NSR @ 79 Assessment and Plan Assessment Anesthesia Assessment: Chart Reviewed Documented by User: Tao Leon MD 05/01/23 02:10 [facility] Past Medical History Medical History (Updated 04/26/23 @ 11:03 by Stefani Lozano RN) COPD (chronic obstructive pulmonary disease) Essential (primary) hypertension Insomnia Obstructive sleep apnea Opioid dependence with unspecified opioid-induced disorder PAF (paroxysmal atrial fibrillation) Peripheral vascular disease due to secondary diabetes Personal history of nicotine dependence Sleep disorder Type 2 diabetes mellitus without complications Vitamin D deficiency Functional capacity: independent ambulation Family History Family History Father No problems noted. Mother Lung cancer, Onset Age: 48 Brother No problems noted. Brother No problems noted. Brother No problems noted. Sister No problems noted. Family history of problems with anesthesia: No Surgical History Surgical History History of colostomy History of colostomy reversal History of dental surgery History of hernia repair History of incisional hernia repair History of inguinal hernia repair History of Problems with Anesthesia: No Social History Social History Household Members: Spouse Housing: Apartment Are you a primary career resource technician to a significant other at home: No Do you presently have visiting nurse or other home services: No Alcohol intake: never Patient Tobacco Use Status: Current everyday Tobacco user Tobacco use type: Cigarette Cigarette Packs Per Day: 1 Cigarettes Per Day: 20.0 Years Smoked: 45 e-Cigarette/Vaping Use: Never Used Second Hand Smoke Exposure: Yes Substance Use Type: Marijuana Advance Directives Date on File: 02/01/21 service: No Current occupational status: disabled Current occupation: right handed Cognitive needs: No Hearing needs: No Vision needs: Yes (glasses) Meds Allergies Allergy/AdvReac Type Severity Reaction Status Date / Time No Known Allergies Allergy Verified 02/21/23 10:52 [No Known Allergies*] Home Medications Medication Instructions Recorded Confirmed Last Taken Type pramipexole 0.5 mg tablet 0.5 mg PO BID@0430,1630 06/30/20 04/26/23 09/07/22 History cholecalciferol (vitamin D3) 25 2,000 unit PO DAILY 12/14/20 04/26/23 09/07/22 History mcg (1,000 unit) capsule (Vitamin D3) dronedarone 400 mg tablet (Multaq) 400 mg PO BID@0430,1630 09/07/22 04/26/23 04/30/23 History clonazepam 0.5 mg tablet 0.5 mg PO BEDTIME 04/26/23 04/26/23 Unknown History ropinirole 2 mg tablet 2 mg PO TID 04/26/23 04/26/23 Unknown History Exam Airway Mallampati Class: IV Loose/Missing/Broken Teeth: Yes Assessment and Plan Assessment Anesthesia Assessment: Anesthesia Plan Discussed Final Anesthetic Review Family History of Problems with Anesthesia: No History of Problems with Anesthesia: No NPO: Yes ASA Class: III Final Preanesthetic Review: Meds/Allgs Chart Reviewed, Consent Obtained/Reviewed and Anes Risks/Benef Reviewed Patient Risk: Intermediate Procedure Risk: Intermediate Anesthetic Plan Anesthetic Plan: MAC: and Agree w/ Assess. and Plan Disposition: Standard PACU
[2023-04-30 10:29] VITALS: BP 131/95; PULSE 108; RESP 18; TEMP 36.2; O2SAT 96
[2023-04-30] MEDS: Lactated Ringers 1,000 ML 100 ML IVCONT (10:32)
[2023-04-30 10:41] LABS: Glucose, Whole Blood 178 mg/dL (60-115)
--- NOTE | 2023-04-30 11:27 | P.HPSUR_ITS ---
Pre-Procedural Eval Section A Date of Service: 04/30/23 Section B Chief Complaint: Encounter for screening for malignant neoplasm Relevant Family History (Specify if Yes): No Relevant Social History: Tobacco Use Present Medications: see Short Stay Collaborative assessment Medical History: Significant History (COPD (chronic obstructive pulmonary disease) Essential (primary) hypertension Insomnia Obstructive sleep apnea Opioid dependence with unspecified opioid-induced disorder PAF (paroxysmal atrial fibrillation) Peripheral vascular disease due to secondary diabetes Personal history of nicotine dependence) History of Previous Operations: Relevant previous surgery/procedure and date(s) (History of colostomy History of colostomy reversal History of dental surgery History of hernia repair History of incisional hernia repair History of inguinal hernia repair) Allergies: Allergies Allergy/AdvReac Type Severity Reaction Status Date / Time No Known Allergies Allergy Verified 02/21/23 10:52 [No Known Allergies*] Review of Systems Sugical H&P ROS: Negative: Constitution, Cardiovascular, Respiratory, Neurological, Psychiatric, Hem-Onc, Allergic/Immunologic, Gastrointestinal, Genitourinary, Musculoskeletal, Integumentary, Endocrine and Eyes/Ears /Nose/Throat Exam Surgical H&P Exam: Normal: HEENT, Normal: Heart, Normal: Lungs, Normal: Extremities, Normal: Abdomen, Normal: Skin and Normal: Neurological Plan Diagnosis/Plan: Unchanged I have reviewed the history and physical and performed a pertinent physical examination on my patient. No changes have occurred unless specified. Time Spent With Patient Time: Total time managing care of this patient today ____ minutes.
--- NOTE | 2023-04-30 11:28 | W.PM.OPN ---
Operative Note Operative Note Date of Service: 04/30/23 Narrative: Operative Information Procedure Description: Colonoscopy Indication: hx of polyps Anesthesia: MAC COLONOSCOPY Instrument: Olympus variable stiffness pediatric scope 190L Colonoscopy Monitoring: Vital signs and clinical assessment, continuous EKG monitoring, Pulse oximetry, Carbon Dioxide monitoring and blood pressure monitoring were done throughout the procedure. Colon withdrawal time was 22 minutes. Procedure: The patient was placed in the left lateral decubitis position and pre-procedure medications were administered. After a digital rectal examination of the ano-rectum, the video colonoscope was inserted into the rectum and advanced through the colon to the cecum/TI. The colonoscope was slowly withdrawn in a retrograde panoramic fashion and the colon mucosa was carefully examined including a retroflexed view of the rectum. Findings and interventions are described below. Procedure Difficulty: easy Findings: Terminal Ileum-normal Cecum:normal Ascending Colon: x1 flat polyp, laterally spreading, lifted with eleview and then removed with cold snare and forceps for the edges, measured about 12-15 mm, x1 sessile polyp 10 mm removed with cold snare Transverse Colon - 7-9 mm sessile polyp removed with cold snare Descending Colon:normal Sigmoid Colon: surgical anastomosis noted Rectum: Retroflexion with medium sized internal hemorrhoids, grade I Anorectum - normal Colon preparation: [place] Bowel Preparation Scale Right colon; 2 Transverse colon: 2 Left colon; 2 (0 = Unprepared colon segment with mucosa not seen due to solid stool that cannot be cleared. 1 = Portion of mucosa of the colon segment seen, but other areas of the colon segment not well seen due to staining, residual stool and/or opaque liquid. 2 = Minor amount of residual staining, small fragments of stool and/or opaque liquid, but mucosa of colon segment seen well. 3 = Entire mucosa of colon segment seen well with no residual staining, small fragments of stool or opaque liquid) Impression and Post Procedure Diagnosis: polyps internal hemorrhoids Plan: High fiber diet leaflet Avoid straining at stool, epsom salts and sitz bath, anusol supps or cream Repeat Colonoscopy in 1-2 years due to polyps or earlier if clinically indicated Above findings were reviewed with the patient and relevant handouts were provided if indicated.
[2023-04-30 12:17] VITALS: BP 108/75; PULSE 78; RESP 16; TEMP 36.1; O2SAT 96
[2023-04-30 12:32] VITALS: BP 123/87; PULSE 82; RESP 16; O2SAT 97
[2023-04-30 12:39] VITALS: BP 129/82; PULSE 82; RESP 16; TEMP 36.9; O2SAT 96
== END 2023-04-30 13:05 | disposition home or self-care (01) ==
PROVIDERS: PCP Internal Medicine; Visit Provider Internal Medicine Gastroenterology
PROC: 0DJD8ZZ Inspection of Lower Intestinal Tract, Via Natural or Artificial Opening Endoscopic (ICD-10-PCS; CPT 45378; principal; 2023-04-30 11:50)
DX: Z12.11 Encounter for screening for malignant neoplasm of colon (principal); Z86.010 Personal history of colon polyps; D12.2 Benign neoplasm of ascending colon; K63.5 Polyp of colon; K64.0 First degree hemorrhoids; Z90.49 Acquired absence of other specified parts of digestive tract; Z98.0 Intestinal bypass and anastomosis status; I10 Essential (primary) hypertension; I48.0 Paroxysmal atrial fibrillation; J44.9 Chronic obstructive pulmonary disease, unspecified; G47.33 Obstructive sleep apnea (adult) (pediatric); G47.00 Insomnia, unspecified; E11.51 Type 2 diabetes mellitus with diabetic peripheral angiopathy without gangrene; E55.9 Vitamin D deficiency, unspecified; Z79.84 Long term (current) use of oral hypoglycemic drugs; Z79.01 Long term (current) use of anticoagulants; Z79.899 Other long term (current) drug therapy; F11.20 Opioid dependence, uncomplicated; F17.210 Nicotine dependence, cigarettes, uncomplicated; Z98.890 Other specified postprocedural states
CPT/HCPCS: 45385; 45381; 82947; 88305

== ENCOUNTER → 2023-04-30 10:02 | Outpatient (BNV) | payer OTHER, SELFPAY | PROVIDERS: PCP Internal Medicine; Visit Provider Internal Medicine Gastroenterology | DX: Z86.010 Personal history of colon polyps (principal); D12.2 Benign neoplasm of ascending colon; D12.3 Benign neoplasm of transverse colon; K64.0 First degree hemorrhoids | CPT/HCPCS: 45380; 45381; 45385 ==

== ENCOUNTER 2023-05-02 08:59 | Outpatient (AMB) | payer OTHER, SELFPAY ==
--- NOTE | 2023-05-02 09:32 | MHC.PC.OV ---
Vital Signs 05/02/23 09:36 Height 5 ft 8 in Weight 204 lb 2 oz BMI 31.0 BP 120/70 Blood Pressure Location Lt brachial Position Sitting Pulse 86 Pulse Source Pulse Oximeter Pulse Oximetry (%) 96 Oxygen Delivery Method Room Air Intake Visit Reasons: Annual Exam Intake Note: Patient is here today for a physical. Denial Resolution Specialist Required: No Rolls Mill Operator: Not Required per policy Accompanied by: Self / Same As Patient Allergies No Known Allergies [No Known Allergies*] Allergy (Verified 05/02/23 14:10) Medication List - Last Reconciled 05/02/23 by Kris Ivory MD albuterol sulfate 90 mcg/actuation 2 puffs inhalation Q4-6H PRN apixaban (Eliquis) 5 mg PO BID 90 days buprenorphine-naloxone 2-0.5 mg (Suboxone) 1 film buccal DAILY cholecalciferol (vitamin D3) (Vitamin D3) 2,000 units PO DAILY diltiazem HCl 120 mg PO DAILY 90 days dronedarone (Multaq) 400 mg PO BID@0430,1630 empagliflozin (Jardiance) 25 mg PO DAILY gabapentin 300 mg PO BEDTIME metformin 1,000 mg PO BID polyethylene glycol 3350 (Miralax) 17 grams PO DAILY rosuvastatin 40 mg PO DAILY Tobacco use date assessed: 05/02/23 [facility] Annual Exam HPI Details 57-year-old male presents to the office to discuss his chronic medical conditions. Originally he was scheduled for an annual exam but he has chronic issues that need to be addressed. Patient continues to have abrupt painful movements in his lower extremity. He has been seeing the neurologist who has been trying various medications including clonazepam, ropinirole and gabapentin. Patient had no relief with the first two medications and was put on gabapentin a few days ago. Patient reports that he does not do well with gabapentin. The neurologist has no other medication to offer. Patient feels frustrated. He also had a screening colonoscopy a few days ago. Three polyps were removed. The insurance had not authorized Bel[place]uca and patient is now willing to take Suboxone. This is for his chronic pain. [facility] Medical History (Updated 04/26/23 @ 11:03 by Stefani Lozano RN) COPD (chronic obstructive pulmonary disease) Essential (primary) hypertension Insomnia Obstructive sleep apnea Opioid dependence with unspecified opioid-induced disorder PAF (paroxysmal atrial fibrillation) Peripheral vascular disease due to secondary diabetes Personal history of nicotine dependence Sleep disorder Type 2 diabetes mellitus without complications Vitamin D deficiency Surgical History (Updated 05/02/23 @ 09:55 by PACO Malcolm) History of colonoscopy History of colostomy History of colostomy reversal History of dental surgery History of hernia repair History of incisional hernia repair History of inguinal hernia repair Family History Father No problems noted. Mother Lung cancer, Onset Age: 48 Brother No problems noted. Brother No problems noted. Brother No problems noted. Sister No problems noted. Social History Household Members: Spouse Housing: Apartment Are you a primary pet care worker to a significant other at home: No Do you presently have visiting nurse or other home services: No Alcohol intake: never Patient Tobacco Use Status: Current everyday Tobacco user Tobacco use type: Cigarette Cigarette Packs Per Day: 1 Cigarettes Per Day: 20.0 Years Smoked: 45 e-Cigarette/Vaping Use: Never Used Second Hand Smoke Exposure: Yes Substance Use Type: Marijuana Advance Directives Date on File: 02/01/21 service: No Current occupational status: disabled Current occupation: right handed Cognitive needs: No Hearing needs: No Vision needs: Yes (glasses) Questionnaire Thrive Questionnaire Date Thrive assessed: 11/07/22 WANDER-7 AMB Questionnaire WANDER-7 Date WANDER - 7 assessed: 11/07/22 Source: Developed by Drs. Vic Ragsdale, Carmencita Joshua, Joce Boswell and colleagues, with an educational aleja from [employer]. Physical exam (Primary Care) Vital Signs: Last Vital Signs Pulse 86 05/02/23 09:36 BP 120/70 05/02/23 09:36 Pulse Ox 96 05/02/23 09:36 Oxygen Delivery Method Room Air 05/02/23 09:36 BMI result Body Mass Index 31.0 Tobacco/Smoking Status: Tobacco use Status Tobacco use date assessed 05/02/23 05/02/23 09:56 Patient Tobacco Use Status Current everyday Tobacco 05/02/23 09:34 Tobacco use type Cigarette 05/02/23 09:34 e-Cigarette/Vaping Use Never Used 05/02/23 09:34 Thrive Assessment: Date of Thrive Assessment Date Thrive assessed 11/07/22 05/02/23 09:34 Const General: cooperative, healthy appearing and comfortable [facility] Head: Yes normal to inspection and Yes atraumatic Eyes General: appearance normal, both eyes and all related structures Neck Neck: Yes normal visual inspection and Yes full ROM Chest Chest palpation & inspection: normal inspection of the chest Resp Effort & Inspection: normal respiratory effort Auscultation: clear to auscultation bilaterally Cardio Jugular venous distension: no JVD Palpation: normal PMI Rate: regular rate Heart sounds: S1 normal heart sound present and S2 normal heart sound present GI Palpation (GI): Soft to palpation and Tenderness to palpation present (GI) Neuro Other: Involuntary, course jerks of the lower extremity Extrem General: Yes normal to inspection and Yes full ROM Assessment and Plan Assessment & Plan (1) Opioid dependence with unspecified opioid-induced disorder: Code(s): F11.29 - Opioid dependence with unspecified opioid-induced disorder Plan: Suboxone to be tried again to see if patient gets relief for the myclonus and his chronic abdominal pain. A prescription has been called in. 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 He is not available in the office med. Message is left for him to call back. Medications: New buprenorphine-naloxone 2-0.5 mg (Suboxone) place 1 strip/tab under (each) side of tongue 1 film buccal DAILY 30 ea 0RF Coding Level of Care Code Est Pt Level 4 (10141) Diagnoses Opioid dependence with unspecified opioid-induced disorder F11.29 Myoclonus dystonia G24.8; G25.3
[2023-05-02 09:36] VITALS: BP 120/70; PULSE 86; O2SAT 96; BMI 31.0
== END 2023-05-02 10:38 | disposition home or self-care (01) ==
PROVIDERS: Visit Provider Internal Medicine
DX: F11.29 Opioid dependence with unspecified opioid-induced disorder (principal); G24.8 Other dystonia; G25.3 Myoclonus
CPT/HCPCS: 99214

== ENCOUNTER 2023-05-08 09:00 | Outpatient (AMB) | payer OTHER, MEDICAID, SELFPAY ==
--- NOTE | 2023-05-08 09:05 | MHC.OFFVIS ---
Intake Vital Signs 05/08/23 09:06 Height 5 ft 8 in Weight 206 lb 5.643 oz BMI 31.4 BP 110/66 Blood Pressure Location Lt brachial Position Sitting Pulse 87 Intake Visit Reasons: 6 month follow up Intake Note: 6 month follow up Crown Blocker Required: No Accompanied by: Self / Same As Patient Allergies gabapentin Adverse Reaction (Intermediate, Verified 05/08/23 09:10) dizziness Medication List - Last Reconciled 05/08/23 by Pascual Garcia MD albuterol sulfate 90 mcg/actuation 2 puffs inhalation Q4-6H PRN apixaban (Eliquis) 5 mg PO BID 90 days buprenorphine-naloxone 2-0.5 mg (Suboxone) 1 film buccal DAILY cholecalciferol (vitamin D3) (Vitamin D3) 2,000 units PO DAILY diltiazem HCl 120 mg PO DAILY 90 days dronedarone (Multaq) 400 mg PO BID@0430,1630 empagliflozin (Jardiance) 25 mg PO DAILY metformin 1,000 mg PO BID polyethylene glycol 3350 (Miralax) 17 grams PO DAILY rosuvastatin 40 mg PO DAILY HPI HPI Comments History of Present Illness Details Bran returns for follow-up regarding atrial fibrillation. He remains on a combination of diltiazem and Multaq. From cardiac, denies any symptoms like angina or shortness of breath or palpitations or in fact anything cardiac sounding. [facility] Medical History (Updated 05/08/23 @ 09:20 by Pascual Garcia MD) COPD (chronic obstructive pulmonary disease) Essential (primary) hypertension Insomnia Obstructive sleep apnea Opioid dependence with unspecified opioid-induced disorder PAF (paroxysmal atrial fibrillation) Peripheral vascular disease due to secondary diabetes Personal history of nicotine dependence Sleep disorder Type 2 diabetes mellitus without complications Vitamin D deficiency Surgical History History of colonoscopy History of colostomy History of colostomy reversal History of dental surgery History of hernia repair History of incisional hernia repair History of inguinal hernia repair Family History Father No problems noted. Mother Lung cancer, Onset Age: 48 Brother No problems noted. Brother No problems noted. Brother No problems noted. Sister No problems noted. Social History Household Members: Spouse Housing: Apartment Are you a primary workforce investment act career manager to a significant other at home: No Do you presently have visiting nurse or other home services: No Alcohol intake: never Patient Tobacco Use Status: Current everyday Tobacco user Tobacco use type: Cigarette Cigarette Packs Per Day: 1 Cigarettes Per Day: 20.0 Years Smoked: 45 e-Cigarette/Vaping Use: Never Used Second Hand Smoke Exposure: Yes Substance Use Type: Marijuana Advance Directives Date on File: 02/01/21 service: No Current occupational status: disabled Current occupation: right handed Cognitive needs: No Hearing needs: No Vision needs: Yes (glasses) Review of Systems Const Denies chills, Denies fatigue, Denies fever(s), Denies frequent falls, Denies weakness, Denies weight gain and Denies weight loss ENT Denies dizziness Card Denies chest pain, Denies leg edema, Denies lightheadedness, Denies palpitations, Denies dyspnea, Denies dyspnea on exertion, Denies orthopnea and Denies other (loss of consciousness) Resp Denies cough, Denies dyspnea and Denies dyspnea on exertion GI Denies hematochezia and Denies change in stool character Musc Denies abnormal gait, Denies muscle weakness, Denies numbness, Denies radiating pain into limb and Denies tingling Neuro Denies abnormal gait, Denies dizziness, Denies frequent falls, Denies numbness, Denies tingling and Denies weakness Endo Denies fatigue and Denies palpitations Physical Exam Vital Signs: Last Vital Signs Pulse 87 05/08/23 09:06 BP 110/66 05/08/23 09:06 BMI result Body Mass Index 31.4 Const General: comfortable and no acute distress Orientation/consciousness: patient oriented x3 HEENT Other: Unremarkable Head: Yes normal to inspection Neck Neck: Yes normal visual inspection Chest Chest palpation & inspection: normal inspection of the chest Resp Auscultation: clear to auscultation bilaterally Cardio Palpation: normal PMI Heart sounds: S1 normal heart sound present, S2 normal heart sound present, no gallops, no murmurs and no rubs GI Palpation (GI): Soft to palpation Back/Spine/Pelvis Other: unremarkable Skin General skin exam: no rashes or lesions noted Neuro General: patient oriented x3 Extrem General: Yes normal to inspection Psych Mental Status: mental status grossly normal Office Procedures EKG Details: EKG with sinus, 87/min, no significant ST-T changes, normal WI/QTc, PVCs. [id number], Complete Assessment & Plan Assessment & Plan (1) PAF (paroxysmal atrial fibrillation): Code(s): I48.0 - Paroxysmal atrial fibrillation Plan: No recent clinically significant atrial fibrillation episodes. On Multaq, diltiazem. Continue Eliquis. In the past, had reported tiredness from beta-blockers. Echocardiogram with hyperdynamic LVEF, >70%; mild left atrial dilatation; mild aortic, mitral valve calcification. Myocardial perfusion imaging study without any evidence of ischemia or infarction. (2) Encounter for monitoring anti-arrhythmic therapy: Code(s): Z51.81 - Encounter for therapeutic drug level monitoring; Z79.899 - Other group captain (current) drug therapy Plan: Stable on Multaq. We will recheck EKG 3 monthly. (3) Personal history of nicotine dependence: Comment: (Current smoker, onset 11yo , 1ppd x 45, 45pyh, + fam hx) Counseled that he should try to quit smoking completely, or at least start cutting down the number of cigarettes. He does not want to use any nicotine products. Will continue to have annual lung screening, with low-dose CT scan. Code(s): Z87.891 - Personal history of nicotine dependence Plan: Discussed about smoking cessation and he is stating that he is finding it difficult to quit. Will need to keep trying. Importance of the same discussed. Coding Level of Care Code Est Pt Level 4 (16904) Diagnoses PAF (paroxysmal atrial fibrillation) I48.0 Encounter for monitoring anti-arrhythmic therapy Z51.81; Z79.899 Personal history of nicotine dependence Z87.891 CPT Codes EKG - CPT: 25773-[id number], Complete ([id number])
[2023-05-08 09:06] VITALS: BP 110/66; PULSE 87; BMI 31.4
== END 2023-05-08 09:36 | disposition home or self-care (01) ==
PROVIDERS: PCP Internal Medicine; Referring Provider Internal Medicine; Visit Provider Internal Medicine
DX: I48.0 Paroxysmal atrial fibrillation (principal); Z51.81 Encounter for therapeutic drug level monitoring; Z79.899 Other long term (current) drug therapy; Z87.891 Personal history of nicotine dependence
CPT/HCPCS: 93010; 99214

== ENCOUNTER → 2023-05-08 09:00 | Outpatient (BNVA) | payer OTHER, SELFPAY | PROVIDERS: PCP Internal Medicine; Referring Provider Internal Medicine; Visit Provider Internal Medicine | DX: I48.0 Paroxysmal atrial fibrillation (principal); F17.210 Nicotine dependence, cigarettes, uncomplicated; Z79.01 Long term (current) use of anticoagulants; Z79.899 Other long term (current) drug therapy | CPT/HCPCS: 93005; 99212 ==

== ENCOUNTER 2023-05-14 11:03 | Outpatient (AMB) | payer OTHER, SELFPAY ==
--- NOTE | 2023-05-14 11:06 | MHC.OFFVIS ---
Intake Vital Signs 05/14/23 11:08 Height 5 ft 8 in Weight 205 lb 0.478 oz BMI 31.2 BP 133/70 Blood Pressure Location Lt brachial Position Sitting Pulse 40 L Intake Visit Reasons: S/p colon-Strauss Intake Note: Bran presents in the office as a follow up colonoscopy. CC: He states that he did the procedure because there was small traces of blood and now he just would like to know results. Downstream Biomanufacturing Technician Required: No Allergies gabapentin Adverse Reaction (Intermediate, Verified 05/14/23 11:08) dizziness HPI S/p colon-Strauss HPI Details LAST VISIT Screen for colon cancer Patient denies any GI, cardiac or respiratory symptoms.? Denies any issues with anesthesia in the past.? History of for mild sleep apnea. Per pulmonology notes no need for CPAP machine, No history infectious diseases in the past or present.? History of AFib on Eliquis. Patient denies any cardiac or respiratory symptoms. Has an appointment with his head rose grower in October, will send message to ask for risk stratification and management of Eliquis. ? No family or personal history of colon cancer. ? Patient denies melena, hematochezia, unintentional weight loss or ribbon like stools.? Discussed at length the pre-procedure,? prep, diet & medications as well as what to expect prior, during and after the procedure.?? Stressed the importance of good bowel prep. Patient reports that he is moving his bowels well, however he was diagnosed with diverticulosis, will send patient script for MiraLax to use daily. ?Recommended the use of Vaseline or Calmoseptine OTC & baby wipes with bowel movements to promote comfort.? ?Patient verbalizes understanding and agrees to plan of care.? He was given the opportunity to ask questions and all questions answered.? We will see him after the procedure.? Plan Medications New bisacodyl (Dulcolax (bisacodyl)) take 2 tabs at noon the day before your colonoscopy 10 mg (2 x 5 mg) PO ONCE 1 day 2 tabs 0RF Z12.11 polyethylene glycol 3350 (Miralax) As directed by gastroenterology department at [facility] 238 grams PO ONCE 238 grams 0RF Z12.11 polyethylene glycol 3350 (Miralax) 17 grams PO DAILY 510 grams 2RF COLONOSCOPY Findings: Terminal Ileum-normal Cecum:normal Ascending Colon: x1 flat polyp, laterally spreading, lifted with eleview and then removed with cold snare and forceps for the edges, measured about 12-15 mm, x1 sessile polyp 10 mm removed with cold snare Transverse Colon - 7-9 mm sessile polyp removed with cold snare Descending Colon:normal Sigmoid Colon: surgical anastomosis noted Rectum: Retroflexion with medium sized internal hemorrhoids, grade I Anorectum - normal Colon preparation: [place] Bowel Preparation Scale Right colon; 2 Transverse colon: 2 Left colon; 2 (0 = Unprepared colon segment with mucosa not seen due to solid stool that cannot be cleared. 1 = Portion of mucosa of the colon segment seen, but other areas of the colon segment not well seen due to staining, residual stool and/or opaque liquid. 2 = Minor amount of residual staining, small fragments of stool and/or opaque liquid, but mucosa of colon segment seen well. 3 = Entire mucosa of colon segment seen well with no residual staining, small fragments of stool or opaque liquid) Impression and Post Procedure Diagnosis: polyps internal hemorrhoids Plan: High fiber diet leaflet Avoid straining at stool, epsom salts and sitz bath, anusol supps or cream Repeat Colonoscopy in 1-2 years due to polyps or earlier if clinically indicated PATHOLOGY RESULTS Diagnosis A. Colon, ascending, polypectomies: Fragments of tubular adenoma, no evidence of high-grade dysplasia or invasive carcinoma. B. Colon, transverse, polypectomies: Colonic mucosa with surface hyperplastic changes, no evidence of adenoma. TODAY'S VISIT [facility] Medical History Personal history of nicotine dependence COPD (chronic obstructive pulmonary disease) Insomnia Sleep disorder Obstructive sleep apnea PAF (paroxysmal atrial fibrillation) Essential (primary) hypertension Opioid dependence with unspecified opioid-induced disorder Peripheral vascular disease due to secondary diabetes Vitamin D deficiency Type 2 diabetes mellitus without complications Surgical History History of colonoscopy History of incisional hernia repair History of inguinal hernia repair History of colostomy History of colostomy reversal History of dental surgery History of hernia repair Family History Father No problems noted. Mother Lung cancer, Onset Age: 48 Brother No problems noted. Brother No problems noted. Brother No problems noted. Sister No problems noted. Social History Household Members: Spouse Housing: Apartment Are you a primary lawn caretaker to a significant other at home: No Do you presently have visiting nurse or other home services: No Alcohol intake: never Patient Tobacco Use Status: Current everyday Tobacco user Tobacco use type: Cigarette Cigarette Packs Per Day: 1 Cigarettes Per Day: 20.0 Years Smoked: 45 e-Cigarette/Vaping Use: Never Used Second Hand Smoke Exposure: Yes Substance Use Type: Marijuana Advance Directives Date on File: 02/01/21 service: No Current occupational status: disabled Current occupation: right handed Cognitive needs: No Hearing needs: No Vision needs: Yes (glasses) Review of Systems Const Denies weight gain and Denies weight loss ENT Reports no additional complaints, Denies dysphagia and Denies odynophagia Card Reports no additional complaints Resp Reports no additional complaints GI Reports abdominal pain (Chronic), Denies belching, Denies melena, Denies bloating, Denies change in bowel habits, Denies dysphagia, Denies excessive flatus, Denies dyspepsia, Denies heartburn, Denies diarrhea, Denies loose stools, Denies nausea, Denies odynophagia and Denies vomiting Reports no additional complaints Musc Reports no additional complaints Neuro Reports no additional complaints Psych Reports no additional complaints Endo Reports no additional complaints Physical Exam Vital Signs: Last Vital Signs Pulse 40 L 05/14/23 11:08 BP 133/70 05/14/23 11:08 BMI result Body Mass Index 31.2 Const General: healthy appearing, no acute distress and well developed Nutritional Appearance: obese Orientation/consciousness: patient oriented x3 HEENT Head: Yes normal to inspection, Yes normocephalic and Yes atraumatic Face and sinus: Yes normal facial exam Mouth: Normal oral and palatal mucosa present Throat: Yes posterior oropharynx normal, Yes tonsils normal and Yes uvula midline Eyes General: appearance normal, both eyes and all related structures Neck Neck: Yes normal visual inspection, Yes full ROM and Yes trachea midline Thyroid: Thyroid normal Resp Effort & Inspection: normal respiratory effort, able to speak in complete sentences, no tracheal deviation and symmetric chest movement Auscultation: clear to auscultation bilaterally Cardio Rate: regular rate Heart sounds: S1 normal heart sound present and S2 normal heart sound present GI Other: Multiple scars from previous abdominal surgeries Inspection: No distended and Yes obesity Palpation (GI): Soft to palpation, not firm, nontender and No hepatosplenomegaly present Auscultation: normal bowel sounds General: Yes no CVA tenderness Back/Spine/Pelvis Back: no CVA tenderness Skin General skin exam: elasticity normal, turgor normal and dry skin Neuro General: patient oriented x3 Psych Appearance: grossly normal Mental Status: mental status grossly normal Speech and movement: Normal speech and movement present Assessment & Plan Assessment & Plan (1) Chronic abdominal pain: Code(s): R10.9 - Unspecified abdominal pain; G89.29 - Other chronic pain Plan: Chronic upper abdominal pain, history of ventral hernia repair. Patient reports abdominal discomfort. Moves his bowels, uses MiraLax daily. CT scan of abdomen ordered to rule out worsening ventral hernia. (2) Status post colonoscopy: Code(s): Z98.890 - Other specified postprocedural states Plan: Suboptimal prep. Patient will need to go for colonoscopy in 1-2 years. Patient denies any ill effects from the prep, anesthesia or procedure itself. I will see him in 2 months, sooner on as needed basis. Patient is agreeable to this plan and verbalizes understanding of instructions. He was given the opportunity to ask questions and all questions answered. He Thank you for allowing me to participate in his care Orders: Orders CT abdomen pelvis w IV con Today K43.9 - Ventral hernia without obstruction or gangrene, R10.9 - Unspecified abdominal pain Blood Urea Nitrogen Today R10.11 - Right upper quadrant pain Creatinine Today R10.11 - Right upper quadrant pain Medications: Refilled polyethylene glycol 3350 (Miralax) 17 grams PO DAILY 510 grams 2RF Coding Level of Care Code Est Pt Level 4 (29047) Diagnoses Chronic abdominal pain R10.9; G89.29 Status post colonoscopy Z98.890 Time Spent (min) 35 Comment 20 minutes spent with patient and additional 15 minutes spent reviewing his records
[2023-05-14 11:08] VITALS: BP 133/70; PULSE 40; BMI 31.2
== END 2023-05-14 11:34 | disposition home or self-care (01) ==
PROVIDERS: PCP Internal Medicine; Visit Provider Nurse Practitioner Family
DX: R10.9 Unspecified abdominal pain (principal); G89.29 Other chronic pain; Z98.890 Other specified postprocedural states
CPT/HCPCS: 99214

== ENCOUNTER → 2023-05-14 11:03 | Outpatient (BNVA) | payer OTHER, SELFPAY | PROVIDERS: PCP Internal Medicine; Visit Provider Nurse Practitioner Family | DX: D12.2 Benign neoplasm of ascending colon (principal); D12.3 Benign neoplasm of transverse colon; G89.29 Other chronic pain; R10.10 Upper abdominal pain, unspecified; Z98.890 Other specified postprocedural states | CPT/HCPCS: 99212 ==

== ENCOUNTER 2023-05-15 14:21 | Outpatient (REF) | payer OTHER, SELFPAY ==
[2023-05-15 15:48] LABS: Blood Urea Nitrogen 19 mg/dL (9-16); Estimated Glomerular Filt Rate > 60
== END 2023-05-15 14:22 | disposition home or self-care (01) ==
LOC: HO.LAB 14:21
PROVIDERS: PCP Internal Medicine; Visit Provider Nurse Practitioner Family
DX: R10.11 Right upper quadrant pain (principal)
CPT/HCPCS: 36415; 82565; 84520

== ENCOUNTER 2023-05-16 09:02 | Outpatient (REF) | payer OTHER, SELFPAY ==
--- NOTE | ~2023-05-16 | CT_ITS ---
EXAMINATION: CT ABDOMEN AND PELVIS WITH CONTRAST CLINICAL INFORMATION: Abdominal pain COMPARISON: Previous abdominal and pelvic CT December 2020 TECHNIQUE: Multidetector volumetric images were obtained from the superior aspect of the liver through the pubic symphysis following administration 85 mL of Omnipaque 350 intravenous contrast. Sagittal and coronal reformatted images were obtained on the technologist's workstation. Oral contrast: Yes This CT examination was performed using dose optimization techniques as appropriate, variously including the following: *Automated exposure control *Adjustment of mA and/or kV according to patient size (this includes techniques or standardized protocols for targeted exams where dose is matched to indication/reason for exam; i.e. extremities or head) *Use of iterative reconstruction technique DLP: 718 mGy-cm FINDINGS: LUNG BASES: The visualized lung bases are unremarkable. LIVER, GALLBLADDER, AND BILIARY TREE: The liver is low in attenuation suggestive of fatty infiltration.. No focal hepatic lesion or biliary ductal dilatation is present. The gallbladder is contracted. PANCREAS: Unremarkable. SPLEEN: Unremarkable. ADRENAL GLANDS: Unremarkable. KIDNEYS AND URETERS: The kidneys are normal in size, shape, and attenuation. No hydronephrosis, hydroureter, or calculi seen. No perinephric stranding. Bilateral renal cysts. No imaging follow-up recommended. BLADDER: Unremarkable. GASTROINTESTINAL TRACT: Moderate stool burden suggestive of constipation. The small and large bowel are otherwise unremarkable. The appendix is unremarkable. ABDOMINAL WALL: Postsurgical changes to the abdominal wall with from hernia repair with mesh in the lower midline and left lower abdominal wall There may be a small umbilical hernia. LYMPH NODES: Normal. VASCULAR: Atherosclerotic disease. No aneurysm. PELVIC VISCERA: Unremarkable. OSSEOUS STRUCTURES: Mild degenerative changes of the spine and hip joints CT/CT abdomen pelvis w IV con IMPRESSION: Fatty liver. Constipation. Postsurgical changes from abdominal wall hernia repair. Question small umbilical hernia containing fat. Fleischner guidelines were followed.
[2023-05-16] MEDS: iohexoL 350 MG/ML 100 ML INFUS..BTL IV (11:38)
[2023-05-16] MEDS: Barium Sulfate Oral (Vanilla) 450 ML ORAL.SUSP 900 ML PO (11:39)
== END 2023-05-16 09:03 | disposition home or self-care (01) ==
LOC: HO.CT 09:02
PROVIDERS: PCP Internal Medicine; Visit Provider Nurse Practitioner Family
DX: R10.9 Unspecified abdominal pain (principal); K43.9 Ventral hernia without obstruction or gangrene
CPT/HCPCS: 74177; Q9967

== ENCOUNTER 2023-05-30 08:01 | Outpatient (AMB) | payer OTHER, SELFPAY ==
--- NOTE | 2023-05-30 08:14 | MHC.PC.OV ---
Vital Signs 05/30/23 08:16 Height 5 ft 8 in Weight 206 lb BMI 31.3 BP 140/80 H Blood Pressure Location Lt brachial Position Sitting Pulse 80 Pulse Source Pulse Oximeter Pulse Oximetry (%) 98 Oxygen Delivery Method Room Air Intake Visit Reasons: 3mth f/u Allergies gabapentin Adverse Reaction (Intermediate, Verified 05/30/23 08:18) dizziness Tobacco use date assessed: 05/02/23 Dental Screening Dental Screen Date: 05/30/23 Did you have a dental visit in the last 12 months?: No Did you have a dental problem in the last 6 months where you did not have access to dental care?: No Was dental information given to patient?: No HPI 3mth f/u HPI Details 57-year-old male presents to the office to discuss his chronic medical conditions. 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 I started him on Suboxone last month. Patient feels that this condition is improved with the medication. The twitching send the legs have reduced in frequency continues to have his chronic pain in the abdomen. Has been more compliant with diet. Not checking his blood sugars frequently. [facility] Medical History Personal history of nicotine dependence COPD (chronic obstructive pulmonary disease) Insomnia Sleep disorder Obstructive sleep apnea PAF (paroxysmal atrial fibrillation) Essential (primary) hypertension Opioid dependence with unspecified opioid-induced disorder Peripheral vascular disease due to secondary diabetes Vitamin D deficiency Type 2 diabetes mellitus without complications Surgical History History of colonoscopy History of incisional hernia repair History of inguinal hernia repair History of colostomy History of colostomy reversal History of dental surgery History of hernia repair Family History Father No problems noted. Mother Lung cancer, Onset Age: 48 Brother No problems noted. Brother No problems noted. Brother No problems noted. Sister No problems noted. Social History Household Members: Spouse Housing: Apartment Are you a primary specialist wound care to a significant other at home: No Do you presently have visiting nurse or other home services: No Alcohol intake: never Patient Tobacco Use Status: Current everyday Tobacco user Tobacco use type: Cigarette Cigarette Packs Per Day: 1 Cigarettes Per Day: 20.0 Years Smoked: 45 e-Cigarette/Vaping Use: Never Used Second Hand Smoke Exposure: Yes Substance Use Type: Marijuana Advance Directives Date on File: 02/01/21 service: No Current occupational status: disabled Current occupation: right handed Cognitive needs: No Hearing needs: No Vision needs: Yes (glasses) Questionnaire PHQ-9 Over the last 2 weeks, how often have you been bothered by any of the following problems? 1. Little interest or pleasure in doing things: not at all 2. Feeling down, depressed, or hopeless: not at all 3. Trouble falling or staying asleep, or sleeping too much: not at all 4. Feeling tired or having little energy: not at all 5. Poor appetite or overeating: not at all 6. Feeling bad about yourself - or that you are a failure or have let yourself or your family down: not at all 7. Trouble concentrating on things, such as reading the newspaper or watching television: not at all 8. Moving or speaking so slowly that other people could have noticed. Or the opposite - being so fidgety or restless that you have been moving around a lot more than usual: not at all 9. Thoughts that you would be better off or of hurting yourself in some way: not at all Total score: 0 Depression Screening Interpretation: Negative Source: Developed by Drs. Vic Ragsdale, Joce Steele and colleagues, with an educational aleja from [email or web address] Thrive Questionnaire Date Thrive assessed: 11/07/22 AUDIT C Alcohol Use Questionnaire (AUDIT-C) 1. How often do you have a drink containing alcohol?: Never Total Score: 0 WANDER-7 AMB Questionnaire WANDER-7 Date WANDER - 7 assessed: 11/07/22 Source: Developed by Drs. Vic Ragsdale, Joce Steele and colleagues, with an educational aleja from [email or web address] Physical exam (Primary Care) Vital Signs: Last Vital Signs Pulse 80 05/30/23 08:16 BP 140/80 H 05/30/23 08:16 Pulse Ox 98 05/30/23 08:16 Oxygen Delivery Method Room Air 05/30/23 08:16 Care Plan Goal for BP management: Blood pressure is in range. Continue medications at same dosage. BMI result Body Mass Index 31.3 Tobacco/Smoking Status: Tobacco use Status Tobacco use date assessed 05/02/23 05/30/23 08:19 Patient Tobacco Use Status Current everyday Tobacco 05/30/23 08:19 Tobacco use type Cigarette 05/30/23 08:19 e-Cigarette/Vaping Use Never Used 05/30/23 08:19 Are you ready to quit: No Tobacco cessation counseling provided: No PHQ-9: PHQ-9 Score PHQ-9: Total score 0 05/30/23 08:28 Depression Screening Interpretation: Negative Thrive Assessment: Date of Thrive Assessment Date Thrive assessed 11/07/22 05/30/23 08:19 Const General: cooperative and healthy appearing Nutritional Appearance: well nourished Orientation/consciousness: patient oriented x3 Limitations: no limitations HENMT Head: Yes normal to inspection Eyes General: appearance normal, both eyes and all related structures Neck Neck: Yes normal visual inspection Chest Chest palpation & inspection: normal palpation of entire chest wall Resp Effort & Inspection: normal respiratory effort Neuro General: patient oriented x3 Extrem Other: Abrupt, sporadic involuntary movements seen. 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 Prescription written. Patient has a follow-up appointment with the neurologist in the following month. (2) Opioid dependence with unspecified opioid-induced disorder: Code(s): F11.29 - Opioid dependence with unspecified opioid-induced disorder Plan: Condition is stable. (3) PAF (paroxysmal atrial fibrillation): Code(s): I48.0 - Paroxysmal atrial fibrillation Plan: Patient is in sinus rhythm. Continue current medications. (4) Type 2 diabetes mellitus without complications: Code(s): E11.9 - Type 2 diabetes mellitus without complications Qualifiers: Diabetes mellitus group home insulin use: without group home use Qualified Code(s): E11.9 - Type 2 diabetes mellitus without complications Plan: A1c is 7.5. Adequate control. Continue medications at same dosage. (5) COPD (chronic obstructive pulmonary disease): Comment: (Chronic Smoker, Mild GAYTAN - As per pulmonary function test he has only mild degree of obstructive airway disorder. TX : Does not need to use any long-acting bronchodilators or ICS agents. ProAir is ordered to keep on hand and use 2 puffs Q 6 hours p.r.n. if there is sustained cough or any wheezing. Code(s): J44.9 - Chronic obstructive pulmonary disease, unspecified (6) Personal history of nicotine dependence: Comment: (Current smoker, onset 11yo , 1ppd x 45, 45pyh, + fam hx) Counseled that he should try to quit smoking completely, or at least start cutting down the number of cigarettes. He does not want to use any nicotine products. Will continue to have annual lung screening, with low-dose CT scan. 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
[2023-05-30 08:16] VITALS: BP 140/80; PULSE 80; O2SAT 98; BMI 31.3
== END 2023-05-30 08:49 | disposition home or self-care (01) ==
PROVIDERS: PCP Internal Medicine; Visit Provider Internal Medicine
DX: I48.0 Paroxysmal atrial fibrillation (principal); F11.29 Opioid dependence with unspecified opioid-induced disorder; E11.9 Type 2 diabetes mellitus without complications; J44.9 Chronic obstructive pulmonary disease, unspecified; G24.8 Other dystonia; G25.3 Myoclonus; Z87.891 Personal history of nicotine dependence
CPT/HCPCS: 83036; 99214

== ENCOUNTER 2023-07-15 08:11 | Outpatient (AMB) | payer OTHER, SELFPAY ==
--- NOTE | 2023-07-15 08:38 | A.OFFVIS_ITS ---
Intake Vital Signs 07/15/23 08:40 Height 5 ft 8 in Weight 204 lb 2.369 oz BMI 31.0 BP 128/74 Blood Pressure Location Lt brachial Position Sitting Pulse 81 Intake Visit Reasons: 2 month follow up Intake Note: Bran presents in the office as a [address] of [address] and labs. CC: Patient reports he has been able to have BMs with Miralax prescribed and he states he likes it a lot.He c/o abdominal pain mostly related to failed hernia repairs surgeries in the past. Denies other GI symptoms today. Operating Room Specialist Required: No Allergies gabapentin Adverse Reaction (Intermediate, Verified 07/15/23 08:43) dizziness HPI 2 month follow up HPI Details LAST VISIT Chronic abdominal pain Chronic upper abdominal pain, history of ventral hernia repair. Patient reports abdominal discomfort. Moves his bowels, uses MiraLax daily. CT scan of abdomen ordered to rule out worsening ventral hernia. Status post colonoscopy Suboptimal prep. Patient will need to go for colonoscopy in 1-2 years. Patient denies any ill effects from the prep, anesthesia or procedure itself. I will see him in 2 months, sooner on as needed basis. Patient is agreeable to this plan and verbalizes understanding of instructions. He was given the opportunity to ask questions and all questions answered. He ? Thank you for allowing me to participate in his care Plan Orders Orders CT abdomen pelvis w IV con Today K43.9, R10.9 Blood Urea Nitrogen Today R10.11 Creatinine Today R10.11 Medications Refilled polyethylene glycol 3350 (Miralax) 17 grams PO DAILY 510 grams 2RF TODAY'S VISIT Patient is here today for follow-up and to discuss CT scan results. Patient continues with abdominal pain. Patient reports that it does not matter if he eats or not. It is not postprandial abdominal discomfort. Patient reports that the pain moves sometimes in the right lower quadrant sometimes in the upper abdomen or left lower quadrant. CT scan did not show any acute processes. Patient reports that he drinks about 7 gal of milk a week. Does not use lactose milk. He uses 1% mild. Patient also reports that he eats cereal. Tried doing FODMAP diet, however it was too hard for him. Patient does feel bloated mostly on the right side of his abdomen. Patient denies any melena, hematochezia, unintentional weight loss or ribbon like stools. Patient reports that he moves his bowels better now that he takes MiraLax. Patient denies any dyspepsia, dysphagia or odynophagia. Reports to have a good appetite ON LICENSE OF [facility] Medical History Personal history of nicotine dependence COPD (chronic obstructive pulmonary disease) Insomnia Sleep disorder Obstructive sleep apnea PAF (paroxysmal atrial fibrillation) Essential (primary) hypertension Opioid dependence with unspecified opioid-induced disorder Peripheral vascular disease due to secondary diabetes Vitamin D deficiency Type 2 diabetes mellitus without complications Surgical History History of colonoscopy History of incisional hernia repair History of inguinal hernia repair History of colostomy History of colostomy reversal History of dental surgery History of hernia repair Family History Father No problems noted. Mother Lung cancer, Onset Age: 48 Brother No problems noted. Brother No problems noted. Brother No problems noted. Sister No problems noted. Social History Household Members: Spouse Housing: Apartment Are you a primary memory care program resident to a significant other at home: No Do you presently have visiting nurse or other home services: No Alcohol intake: never Patient Tobacco Use Status: Current everyday Tobacco user Tobacco use type: Cigarette Cigarette Packs Per Day: 1 Cigarettes Per Day: 20.0 Years Smoked: 45 e-Cigarette/Vaping Use: Never Used Second Hand Smoke Exposure: Yes Substance Use Type: Marijuana Advance Directives Date on File: 02/01/21 service: No Current occupational status: disabled Current occupation: right handed Cognitive needs: No Hearing needs: No Vision needs: Yes (glasses) Review of Systems Const Denies weight gain and Denies weight loss ENT Reports no additional complaints, Denies dysphagia and Denies odynophagia Card Reports no additional complaints Resp Reports no additional complaints GI Reports abdominal pain, Denies belching, Denies melena, Reports bloating, Denies change in bowel habits, Denies dysphagia, Denies excessive flatus, Denies dyspepsia, Denies heartburn, Denies diarrhea, Denies loose stools, Denies nausea, Denies odynophagia and Denies vomiting Reports no additional complaints Musc Reports no additional complaints Neuro Reports no additional complaints Psych Reports no additional complaints Endo Reports no additional complaints Physical Exam Const General: healthy appearing, no acute distress and well developed Nutritional Appearance: obese Orientation/consciousness: patient oriented x3 HEENT Head: Yes normal to inspection, Yes normocephalic and Yes atraumatic Face and sinus: Yes normal facial exam Mouth: Normal oral and palatal mucosa present Throat: Yes posterior oropharynx normal, Yes tonsils normal and Yes uvula midline Eyes General: appearance normal, both eyes and all related structures Neck Neck: Yes normal visual inspection, Yes full ROM and Yes trachea midline Thyroid: Thyroid normal Resp Effort & Inspection: normal respiratory effort, able to speak in complete sentences, no tracheal deviation and symmetric chest movement Auscultation: clear to auscultation bilaterally Cardio Rate: regular rate Heart sounds: S1 normal heart sound present and S2 normal heart sound present GI Other: Large vertical surgical scar Inspection: Yes obesity Palpation (GI): Soft to palpation, not firm, nontender and No hepatosplenomegaly present Auscultation: normal bowel sounds General: Yes no CVA tenderness Back/Spine/Pelvis Back: no CVA tenderness Skin General skin exam: elasticity normal, turgor normal and dry skin Neuro General: patient oriented x3 Psych Appearance: grossly normal Mental Status: mental status grossly normal Results Reviewed Results Reviewed: ABDOMINAL CT SCAN 05/16/2023 FINDINGS: LUNG BASES: The visualized lung bases are unremarkable. LIVER, GALLBLADDER, AND BILIARY TREE: The liver is low in attenuation suggestive of fatty infiltration.. No focal hepatic lesion or biliary ductal dilatation is present. The gallbladder is contracted. PANCREAS: Unremarkable. SPLEEN: Unremarkable. ADRENAL GLANDS: Unremarkable. KIDNEYS AND URETERS: The kidneys are normal in size, shape, and attenuation. No hydronephrosis, hydroureter, or calculi seen. No perinephric stranding. Bilateral renal cysts. No imaging follow-up recommended. BLADDER: Unremarkable. GASTROINTESTINAL TRACT: Moderate stool burden suggestive of constipation. The small and large bowel are otherwise unremarkable. The appendix is unremarkable. ABDOMINAL WALL: Postsurgical changes to the abdominal wall with from hernia repair with mesh in the lower midline and left lower abdominal wall There may be a small umbilical hernia. LYMPH NODES: Normal. VASCULAR: Atherosclerotic disease. No aneurysm. PELVIC VISCERA: Unremarkable. OSSEOUS STRUCTURES: Mild degenerative changes of the spine and hip joints CT/CT abdomen pelvis w IV con IMPRESSION: Fatty liver. Constipation. Postsurgical changes from abdominal wall hernia repair. Question small umbilical hernia containing fat. Assessment & Plan Assessment & Plan (1) Chronic abdominal pain: Code(s): R10.9 - Unspecified abdominal pain; G89.29 - Other chronic pain (2) Abdominal bloating: Code(s): R14.0 - Abdominal distension (gaseous) Plan Chronic abdominal pain most likely related to bloating and gas trapping pain. Discussed with patient his CT scan results. Patient states that he moves his bowels without any issues. Take MiraLax daily. He can continue taking MiraLax every day. Discussed with patient avoiding lactose. Follow low FODMAP diet. If pain persists patient will be sent to General surgery. Small fat containing umbilical hernia found on CT scan. Patient will return in 10 months will discuss going for colonoscopy. Patient is agreeable to this plan and verbalizes understanding of instructions. He was given the opportunity to ask questions and all questions answered. Thank you for allowing me to participate in his care Coding Level of Care Code Est Pt Level 4 (52532) Diagnoses Chronic abdominal pain R10.9; G89.29 Abdominal bloating R14.0 Time Spent (min) 35 Comment 20 minutes spent with patient and additional 15 minutes spent reviewing his records
[2023-07-15 08:40] VITALS: BP 128/74; PULSE 81; BMI 31.0
== END 2023-07-15 09:14 | disposition home or self-care (01) ==
PROVIDERS: PCP Internal Medicine; Visit Provider Nurse Practitioner Family
DX: R10.9 Unspecified abdominal pain (principal); G89.29 Other chronic pain; R14.0 Abdominal distension (gaseous)
CPT/HCPCS: 99214

== ENCOUNTER → 2023-07-15 08:11 | Outpatient (BNVA) | payer OTHER, SELFPAY | PROVIDERS: PCP Internal Medicine; Visit Provider Nurse Practitioner Family | DX: R10.9 Unspecified abdominal pain (principal); R14.0 Abdominal distension (gaseous); G89.29 Other chronic pain | CPT/HCPCS: 99212 ==

== ENCOUNTER 2023-08-07 07:45 | Outpatient (REF) | payer OTHER, SELFPAY ==
--- NOTE | ~2023-08-07 | CT_ITS ---
EXAMINATION: CT CHEST SCREENING CLINICAL INFORMATION: Current smoker with 45 pack-year smoking history; lung cancer screening. COMPARISON: Prior chest CT examinations, most recently 05/11/2022. TECHNIQUE: Multidetector volumetric CT imaging of the chest is performed without contrast using low dose technique. Additional 2D coronal and sagittal reformatted images and axial 3D maximum intensity projection (MIP) images are generated on the CT workstation. This CT examination was performed using dose optimization techniques as appropriate, variously including the following: *Automated exposure control *Adjustment of mA and/or kV according to patient size (this includes techniques or standardized protocols for targeted exams where dose is matched to indication/reason for exam; i.e. extremities or head) *Use of iterative reconstruction technique DLP: 66 mGy-cm FINDINGS: LUNGS: The lungs are clear with no evidence of inflammation or nodules. No mass is seen. There is very mild paraseptal emphysema. There is lingular scar/subsegmental atelectasis, without associated focal airway obstruction. No generalized increase is seen in peripheral interlobular septal markings. There is no generalized small airway thickening. The central airways appear patent. MEDIASTINUM: The thyroid is unremarkable. There is no thoracic aortic aneurysm. There are mild atherosclerotic calcifications of the great vessel origins and thoracic aorta. No mediastinal or hilar lymphadenopathy is seen. CORONARY ARTERY CALCIFICATION: None visualized on this study. There are calcifications of the aortic and mitral annuli. PLEURA: There is no pleural effusion. No pleural mass or thickening. AXILLA: No lymphadenopathy. UPPER ABDOMEN: Unremarkable OSSEOUS STRUCTURES: There is multi-level thoracic degenerative disc disease and spondylosis. No acute or aggressive osseous finding is noted. CT/CT lung screening IMPRESSION: 1. There is very mild paraseptal emphysema. 2. No new nodule, mass, infiltrate or groundglass opacity is seen. 3. There is no thoracic lymphadenopathy or pleural effusion. 4. No aggressive osseous lesion is seen. ASSESSMENT: Lung-RADS category 1: Negative RECOMMENDATION: Routine annual low-dose CT screening in 12 months.
== END 2023-08-07 07:46 | disposition home or self-care (01) ==
LOC: HO.CT 07:45
PROVIDERS: PCP Internal Medicine; Visit Provider Physician Assistant Medical
DX: Z12.2 Encounter for screening for malignant neoplasm of respiratory organs (principal); F17.210 Nicotine dependence, cigarettes, uncomplicated
CPT/HCPCS: 71271

== ENCOUNTER → 2023-08-09 08:12 | Outpatient (BNVA) | payer OTHER, SELFPAY | PROVIDERS: PCP Internal Medicine; Visit Provider Internal Medicine ==

== ENCOUNTER 2023-10-03 08:03 | Outpatient (AMB) | payer OTHER, SELFPAY ==
[2023-10-03 08:12] VITALS: BP 136/72; PULSE 77; O2SAT 98; BMI 31.3
--- NOTE | 2023-10-03 08:12 | MHC.PC.OV ---
Vital Signs 10/03/23 08:12 Height 5 ft 8 in Weight 206 lb BMI 31.3 BP 136/72 Blood Pressure Location Lt brachial Position Sitting Pulse 77 Pulse Source Pulse Oximeter Pulse Oximetry (%) 98 Oxygen Delivery Method Room Air Intake Visit Reasons: 4 Months F/U Allergies gabapentin Adverse Reaction (Intermediate, Verified 10/06/23 17:50) dizziness Medication List - Last Reconciled 10/06/23 by Kris Ivory MD albuterol sulfate 90 mcg/actuation 2 puffs inhalation Q4-6H PRN apixaban (Eliquis) 5 mg PO BID 90 days buprenorphine-naloxone 2-0.5 mg (Suboxone) 1 film buccal DAILY cholecalciferol (vitamin D3) (Vitamin D3) 2,000 units PO DAILY diltiazem HCl 120 mg PO DAILY 90 days dronedarone (Multaq) 400 mg PO BID empagliflozin (Jardiance) 25 mg PO DAILY metformin 1,000 mg PO BID polyethylene glycol 3350 (Miralax) 17 grams PO DAILY rosuvastatin 40 mg PO DAILY Tobacco use date assessed: 10/03/23 Dental Screening Dental Screen Date: 10/03/23 Did you have a dental visit in the last 12 months?: No Did you have a dental problem in the last 6 months where you did not have access to dental care?: No Was dental information given to patient?: No HPI 4 Months F/U HPI Details 57-year-old male presents to the office to discuss his chronic medical conditions. Patient continues to have pain in the abdomen. He reports it has now been 20 years living and pain. Some relief with the Suboxone. Unwilling to go back to opiates. Since the last office visit he has fallen down for the 1st time. Luckily he did not suffer from any injuries. Compliant with other medications. [facility] Medical History Personal history of nicotine dependence COPD (chronic obstructive pulmonary disease) Insomnia Sleep disorder Obstructive sleep apnea PAF (paroxysmal atrial fibrillation) Essential (primary) hypertension Opioid dependence with unspecified opioid-induced disorder Peripheral vascular disease due to secondary diabetes Vitamin D deficiency Type 2 diabetes mellitus without complications Surgical History History of colonoscopy History of incisional hernia repair History of inguinal hernia repair History of colostomy History of colostomy reversal History of dental surgery History of hernia repair Family History Father No problems noted. Mother Lung cancer, Onset Age: 48 Brother No problems noted. Brother No problems noted. Brother No problems noted. Sister No problems noted. Social History Household Members: Spouse Housing: Apartment Are you a primary care director rn to a significant other at home: No Do you presently have visiting nurse or other home services: No Alcohol intake: never Comment: with patient at present Patient Tobacco Use Status: Current everyday Tobacco user Tobacco use type: Cigarette Cigarette Packs Per Day: 1 Cigarettes Per Day: 20.0 Years Smoked: 45 e-Cigarette/Vaping Use: Never Used Second Hand Smoke Exposure: Yes Substance Use Type: Marijuana Advance Directives Date on File: 02/01/21 service: No Current occupational status: disabled Current occupation: right handed Cognitive needs: No Hearing needs: No Vision needs: Yes (glasses) Questionnaire PHQ-9 Over the last 2 weeks, how often have you been bothered by any of the following problems? 1. Little interest or pleasure in doing things: not at all 2. Feeling down, depressed, or hopeless: not at all 3. Trouble falling or staying asleep, or sleeping too much: not at all 4. Feeling tired or having little energy: not at all 5. Poor appetite or overeating: not at all 6. Feeling bad about yourself - or that you are a failure or have let yourself or your family down: not at all 7. Trouble concentrating on things, such as reading the newspaper or watching television: not at all 8. Moving or speaking so slowly that other people could have noticed. Or the opposite - being so fidgety or restless that you have been moving around a lot more than usual: not at all 9. Thoughts that you would be better off or of hurting yourself in some way: not at all Total score: 0 Depression Screening Interpretation: Negative Depression Screening Done: Yes Source: Developed by Drs. Vic Ragsdale, Carmencita B.Joce Muniz and colleagues, with an educational aleja from [employer]. Thrive Questionnaire Date Thrive assessed: 10/03/23 I am a: Patient What is your living situation today?: I have a steady place to live Within the past 12 months, did the food you bought not last and you didn't have the money to get more?: Never true Within the past 12 months, did you worry whether your food would run out before you got money to buy more?: Never true Do you have trouble paying for medicines?: No Do you have trouble getting transportation to medical appointments?: No Do you have trouble paying your heating and electricity bill?: No Do you have trouble taking care of your child, family member or friend?: No Do you have trouble with day-to-day activities such as bathing, preparing meals, shopping, managing finances, etc.?: No Are you currently unemployed and looking for a job?: No Are you interested in more education?: No Currently or been in a relationship where the following occur: no concerns reported THRIVE Score: 0 AUDIT C Alcohol Use Questionnaire (AUDIT-C) 1. How often do you have a drink containing alcohol?: Never Total Score: 0 WANDER-7 AMB Questionnaire WANDER-7 Date WANDER - 7 assessed: 10/03/23 Feeling nervous, anxious, or on edge: 0 = Not at all Not being able to stop or control worryin = Not at all Worrying too much about different things: 0 = Not at all Trouble relaxin = Not at all Being so restless that it is hard to sit still: 0 = Not at all Becoming easily annoyed or irritable: 0 = Not at all Feeling afraid as if something awful might happen: 0 = Not at all Total WANDER-7 score (0-4 normal; 5-9 mild; 10-14 moderate; 15-21 severe): 0 Source: Developed by Drs. Vic Ragsdale, Joce Steele and colleagues, with an educational aleja from [employer]. Fall Risk Assessment Fall Risk Assessment Fall risk assessment: 1 Fall in past year (Had a fall inside the house about 3 weeks ago. ) Physical exam (Primary Care) Vital Signs: Last Vital Signs Pulse 77 10/03/23 08:12 BP 136/72 10/03/23 08:12 Pulse Ox 98 10/03/23 08:12 Oxygen Delivery Method Room Air 10/03/23 08:12 BMI result Body Mass Index 31.3 BMI Assessment/Plan discussion: High BMI High, discussed plan: lifestyle, weight reduction and dietary Tobacco/Smoking Status: Tobacco use Status Tobacco use date assessed 10/03/23 10/03/23 08:14 Patient Tobacco Use Status Current everyday Tobacco 10/03/23 08:14 Tobacco use type Cigarette 10/03/23 08:14 e-Cigarette/Vaping Use Never Used 10/03/23 08:25 Are you ready to quit: No Tobacco cessation counseling provided: Yes CPT code: Less than 3 minutes PHQ-9: PHQ-9 Score PHQ-9: Total score 0 10/06/23 17:45 Depression Screening Interpretation: Negative Thrive Assessment: Date of Thrive Assessment Date Thrive assessed 10/03/23 10/03/23 08:14 Currently or been in a relationship where the following occur: no concerns reported Const General: cooperative and healthy appearing Nutritional Appearance: well nourished Orientation/consciousness: patient oriented x3 Limitations: no limitations HENMT Head: Yes normal to inspection Eyes General: appearance normal, both eyes and all related structures Neck Neck: Yes normal visual inspection Chest Chest palpation & inspection: normal palpation of entire chest wall Resp Effort & Inspection: normal respiratory effort Neuro General: patient oriented x3 Assessment and Plan Assessment & Plan (1) Type 2 diabetes mellitus without complications: Code(s): E11.9 - Type 2 diabetes mellitus without complications Qualifiers: Diabetes mellitus exterminator helper termite insulin use: without exterminator helper termite use Qualified Code(s): E11.9 - Type 2 diabetes mellitus without complications Plan: Current A1c is 7.5. Continue meds at same dosage. Fasting blood work has been ordered. Will call with results of the blood work. (2) Opioid dependence with unspecified opioid-induced disorder: Code(s): F11.29 - Opioid dependence with unspecified opioid-induced disorder Plan: This is a chronic condition. Currently managed with Suboxone. (3) PAF (paroxysmal atrial fibrillation): Code(s): I48.0 - Paroxysmal atrial fibrillation Plan: Condition is managed with oral anticoagulants and rate control. (4) Peripheral vascular disease due to secondary diabetes: Code(s): E13.51 - Other specified diabetes mellitus with diabetic peripheral angiopathy without gangrene (5) COPD (chronic obstructive pulmonary disease): Comment: (Chronic Smoker, Mild GAYTAN - As per pulmonary function test he has only mild degree of obstructive airway disorder. TX : Does not need to use any long-acting bronchodilators or ICS agents. ProAir is ordered to keep on hand and use 2 puffs Q 6 hours p.r.n. if there is sustained cough or any wheezing. Code(s): J44.9 - Chronic obstructive pulmonary disease, unspecified (6) Personal history of nicotine dependence: Comment: (Current smoker, onset 11yo , 1ppd x 45, 45pyh, + fam hx) Counseled that he should try to quit smoking completely, or at least start cutting down the number of cigarettes. He does not want to use any nicotine products. Will continue to have annual lung screening, with low-dose CT scan. Code(s): Z87.891 - Personal history of nicotine dependence Orders: Orders Basic Metabolic Panel 10/03/23 E11.9 - Type 2 diabetes mellitus without complications Complete Blood Count no Diff 10/03/23 E11.9 - Type 2 diabetes mellitus without complications AMB Hemoglobin A1c 10/03/23 Z13.9 - Encounter for screening, unspecified Lipid Panel 10/03/23 E11.9 - Type 2 diabetes mellitus without complications Liver Panel 10/03/23 E11.9 - Type 2 diabetes mellitus without complications Thyroid Stimulating Hormone 10/03/23 E11.9 - Type 2 diabetes mellitus without complications UA and rflx microscopic 10/03/23 E11.9 - Type 2 diabetes mellitus without complications Coding Level of Care Code Est Pt Level 4 (35155) Diagnoses Type 2 diabetes mellitus without complication, without long-term current use of insulin E11.9 Diabetes mellitus correction insulin use: without correction use Opioid dependence with unspecified opioid-induced disorder F11.29 PAF (paroxysmal atrial fibrillation) I48.0 Peripheral vascular disease due to secondary diabetes E13.51 COPD (chronic obstructive pulmonary disease) J44.9 Personal history of nicotine dependence Z87.891
== END 2023-10-03 09:00 | disposition home or self-care (01) ==
PROVIDERS: PCP Internal Medicine; Visit Provider Internal Medicine
DX: E13.51 Other specified diabetes mellitus with diabetic peripheral angiopathy without gangrene (principal); F11.29 Opioid dependence with unspecified opioid-induced disorder; I48.0 Paroxysmal atrial fibrillation; J44.9 Chronic obstructive pulmonary disease, unspecified
CPT/HCPCS: 83036; 99214

== ENCOUNTER 2023-10-07 06:18 | Outpatient (REF) | payer OTHER, SELFPAY ==
[2023-10-07 07:45] LABS: Appearance Urine Clear; Color Urine Yellow; Glucose Urine UA >=1000 mg/dL (Negative); Leukocyte Esterase Urine Negative (Negative); Nitrite Urine Negative (Negative); PH 5.5 (5.0-9.0); Specific Gravity - Urine >= 1.030 (1.005-1.025); UMIC TRIGGER UA YES; Urine Blood Negative (Negative); Urine Ketones Negative (Negative); Urine Protein Trace mg/dL (Neg-Trace)
[2023-10-07 07:48] LABS: Hematocrit 51.3 % (42.0-52.0); Hemoglobin 16.4 g/dl (14.0-18.0); Mean Corpuscular Hemoglobin 27.5 pg (27.0-33.0); Mean Corpuscular Volume 85.9 fL (80.0-98.0); Mean Platelet Volume 9.9 fL (9.4-12.4); Platelet Count 248 X10*3/uL (160-400); Red Blood Count 5.97 X10*6/uL (4.60-5.80); Red Cell Distribution Width 15.1 % (11.0-16.0); White Blood Count 10.5 X10*3/uL (4.8-10.8)
[2023-10-07 07:51] LABS: Bacteria Urine None Seen (None Seen); Hyaline Casts Urine 0-2 /LPF (0-2); RBC Urine 0-2 /HPF (0-2); Squamous Epithelial Cell Urine 0-2 /HPF (0-2); WBC Urine 0-5 /HPF (0-5)
[2023-10-07 08:25] LABS: Alanine Aminotransferase 12 U/L (0-40); Albumin Level 4.3 g/dL (3.5-5.0); Alkaline Phosphatase 61 U/L (39-117); Anion Gap 16 (12-20); Aspartate Amino Transferase 20 U/L (5-37); Bilirubin Direct 0.2 mg/dL (0.0-0.5); Bilirubin Total 0.5 mg/dL (0.0-1.0); Blood Urea Nitrogen 15 mg/dL (9-16); Calcium 9.4 mg/dL (8.4-10.2); Carbon Dioxide 26 mmol/L (22-29); Chloride 105 mmol/L (96-108); Cholesterol 84 mg/dL (<200); Estimated Glomerular Filt Rate > 60; Glucose Random 112 mg/dL (60-115); HDL Cholesterol 32 mg/dL (>40); LDL Cholesterol Calculated 9 mg/dL (<100); Potassium 4.8 mmol/L (3.3-5.1); Sodium 142 mmol/L (135-145); Total Protein 7.4 g/dL (6.5-8.0); Triglycerides 218 mg/dL (<150)
[2023-10-07 08:44] LABS: Thyroid Stimulating Hormone 0.67 uIU/mL (0.32-4.0)
== END 2023-10-07 06:19 | disposition home or self-care (01) ==
LOC: HO.LAB 06:18
PROVIDERS: PCP Internal Medicine; Visit Provider Internal Medicine
DX: E11.9 Type 2 diabetes mellitus without complications (principal)
CPT/HCPCS: 36415; 80048; 80061; 80076; 81001; 84443; 85027

== ENCOUNTER 2023-10-29 09:13 | Outpatient (AMB) | payer OTHER, SELFPAY ==
[2023-10-29 09:24] VITALS: BP 120/60; PULSE 81; O2SAT 96; BMI 31.3
--- NOTE | 2023-10-29 09:24 | MHC.OFFVIS ---
Intake Vital Signs 10/29/23 09:24 Height 5 ft 8 in Weight 206 lb 2.115 oz BMI 31.3 BP 120/60 Blood Pressure Location Lt brachial Position Sitting Pulse 81 Pulse Source Pulse Oximeter Pulse Oximetry (%) 96 Intake Visit Reasons: Obstructive sleep apnea Intake Note: pt is here for follow up and states he sleeps okay, but dealing with a lot of neuropathy, and a lot of stomach issues. Freight Receiver Required: No Allergies gabapentin Adverse Reaction (Intermediate, Verified 10/29/23 09:38) dizziness Medication List - Last Reconciled 10/29/23 by Gerber Naik MD albuterol sulfate 90 mcg/actuation 2 puffs inhalation Q4-6H PRN apixaban (Eliquis) 5 mg PO BID 90 days buprenorphine-naloxone 2-0.5 mg (Suboxone) 1 film buccal DAILY cholecalciferol (vitamin D3) (Vitamin D3) 2,000 units PO DAILY diltiazem HCl 120 mg PO DAILY 90 days dronedarone (Multaq) 400 mg PO BID empagliflozin (Jardiance) 25 mg PO DAILY metformin 1,000 mg PO BID polyethylene glycol 3350 (Miralax) 17 grams PO DAILY rosuvastatin 40 mg PO DAILY Do you need a note to return to daycare/school/sports/work: No HPI Obstructive sleep apnea HPI Details 58 years old gentleman is here for follow-up after 1 year. STILL SMOKING ABOUT 1 PACK OF CIGARETTES A DAY., HE HAS NOT ABLE TO QUIT AND NOT INTERESTED IN USING ANY MEDICINAL HELP Breathing has been okay, he needs to use albuterol only when he goes outdoors in the cold air, about 3 to 4 times a week. Denies shortness of breath on exertion. Had low-dose CT scan just in August 2023 and it was negative. Sleep is disturbed mainly because of his abdominal pain and also pain in the extremities due to neuropathy. He can not use gabapentin or Lyrica. Anyway he tries to sleep in lateral position, .he is not snoring He has not interested in using CPAP device. [facility] Medical History Personal history of nicotine dependence COPD (chronic obstructive pulmonary disease) Insomnia Sleep disorder Obstructive sleep apnea PAF (paroxysmal atrial fibrillation) Essential (primary) hypertension Opioid dependence with unspecified opioid-induced disorder Peripheral vascular disease due to secondary diabetes Vitamin D deficiency Type 2 diabetes mellitus without complications Surgical History History of colonoscopy History of incisional hernia repair History of inguinal hernia repair History of colostomy History of colostomy reversal History of dental surgery History of hernia repair Family History Father No problems noted. Mother Lung cancer, Onset Age: 48 Brother No problems noted. Brother No problems noted. Brother No problems noted. Sister No problems noted. Social History Household Members: Spouse Housing: Apartment Are you a primary healthcare science specialist to a significant other at home: No Do you presently have visiting nurse or other home services: No Alcohol intake: never Comment: with patient at present Patient Tobacco Use Status: Current everyday Tobacco user Tobacco use type: Cigarette Cigarette Packs Per Day: 1 Cigarettes Per Day: 20.0 Years Smoked: 45 e-Cigarette/Vaping Use: Never Used Second Hand Smoke Exposure: Yes Substance Use Type: Marijuana Advance Directives Date on File: 02/01/21 service: No Current occupational status: disabled Current occupation: right handed Cognitive needs: No Hearing needs: No Vision needs: Yes (glasses) Review of Systems Const All systems reviewed & are unremarkable except as noted in HPI and below Eyes Reports no additional complaints ENT Reports no additional complaints Card Denies chest pain and Denies leg edema Resp Reports no additional complaints GI Reports abdominal pain (chronic ) Reports no additional complaints Musc Reports back pain Skin/Breast Reports system reviewed and no additional complaints, except as documented Neuro Reports no additional complaints Psych Reports no additional complaints Physical Exam Vital Signs: Last Vital Signs Pulse 81 10/29/23 09:24 BP 120/60 10/29/23 09:24 Pulse Ox 96 10/29/23 09:24 BMI result Body Mass Index 31.3 Const General: comfortable, no acute distress, alert and awake Orientation/consciousness: patient oriented x3 HEENT Head: Yes normal to inspection General nose exam: No nasal polyps present and No nasal discharge present Face and sinus: Yes sinuses nontender Mouth: oropharynx normal Throat: Yes posterior oropharynx normal Eyes General: appearance normal, both eyes and all related structures Neck Neck: Yes normal visual inspection, Yes no lymphadenopathy, Yes trachea midline and Yes no JVD Thyroid: Thyroid normal Chest Chest palpation & inspection: normal inspection of the chest, normal palpation of entire chest wall and no tenderness Resp Effort & Inspection: normal respiratory effort Auscultation: clear to auscultation bilaterally, no crackles, no rhonchi and no wheezes Percussion: percussion normal Cardio Palpation: normal PMI Rate: regular rate Rhythm: regular rhythm Heart sounds: no gallops and no murmurs Peripheral pulses: Peripheral pulses 2+ throughout GI Other: Abdomen is protuberant, extensive surgical scars from previous abdominal surgeries. The whole abdomen is somewhat sensitive to touch. Bowel sounds are normal. Palpation (GI): Soft to palpation, Tenderness to palpation present (GI), No hepatosplenomegaly present and Palpable mass present Auscultation: normal bowel sounds Back/Spine/Pelvis Thoracic/Lumbar Spine: thoracic and lumbar spine normal to inspection and thoraco-lumbar ROM limited Skin General skin exam: no rashes or lesions noted Neuro General: patient oriented x3 and no focal motor deficits Cranial nerves: Yes CN's II-XII intact bilaterally Extrem General: Yes normal to inspection, Yes no clubbing, cyanosis or edema and Yes no calf tenderness Psych Speech and movement: Normal speech and movement present Office Procedures Spirometry Testing Spirometry Comments: Spirometry done in the office, Dr. Naik has the results results scanned to his chart. 52638- Spirometry Results Reviewed Results Reviewed: SPIROMETRY. FVC 91%, FEV1 80%, FEV1/FVC RATIO 69 FEF 25-75 = 62% RESULTS ARE C/W MILD OBSTRUCTIVE AIRWAY DISORDER . Assessment & Plan Assessment & Plan (1) COPD (chronic obstructive pulmonary disease): Comment: (Chronic Smoker, Mild GAYTAN - As per pulmonary function test he has only mild degree of obstructive airway disorder. SPIROMETRY IN THE OFFICE TODAY : Again shows only mild obstructive airway disorder, Code(s): J44.9 - Chronic obstructive pulmonary disease, unspecified Plan: EXPLAINED TO HIM THAT COUGH IS MAINLY RELATED TO HIS SMOKING. IT IS OKAY TO USE ALBUTEROL HFA ONLY IF HE HAS ANY WHEEZING OR PERSISTENT COUGH. *Does not need to use any long-acting, maintenance inhaler. (2) Personal history of nicotine dependence: Comment: (Current smoker, onset 11yo , 1ppd x 45, 45pyh, + fam hx) Counseled that he should try to quit smoking completely, or at least start cutting down the number of cigarettes. He does not want to use any nicotine products. Will continue to have annual lung screening, with low-dose CT scan. Code(s): Z87.891 - Personal history of nicotine dependence Plan: EXPLAINED TO HIM THE RESULTS OF LOW-DOSE CT SCAN. STRESSED THAT HE SHOULD AIM TO QUIT. SMOKING COMPLETELY (3) Obstructive sleep apnea: Comment: (Mild IAN - TST AHI OF 7.4, Supine AHI 12.5, Prone AHI 88, Lateral AHI 5.9) ORDINARILY, MILD OBSTRUCTIVE SLEEP APNEA DOES NOT NEED CPAP THERAPY, AND CAN BE TREATED WITH CONSERVATIVE MEASURES. IN HIS CASE , WITH A HISTORY OF THE PAROXYSMAL ATRIAL FIBRILLATION HE MAY BE CANDIDATE FOR CPAP THERAPY. *HOWEVER HE DOES NOT WANT TO START USING CPAP. Code(s): G47.33 - Obstructive sleep apnea (adult) (pediatric) Plan: TX: CONT. POSITION THERAPY AND A MODEST WEIGHT LOSS . Orders: Orders AMB Spirometry Testing Today J44.9 - Chronic obstructive pulmonary disease, unspecified Coding Level of Care Code Est Pt Level 3 (84609) Diagnoses COPD (chronic obstructive pulmonary disease) J44.9 Personal history of nicotine dependence Z87.891 Obstructive sleep apnea G47.33 CPT Codes Spirometry - CPT: 23729- Spirometry ([id number])
== END 2023-10-29 10:04 | disposition home or self-care (01) ==
PROVIDERS: PCP Internal Medicine; Visit Provider Internal Medicine
DX: J44.9 Chronic obstructive pulmonary disease, unspecified (principal); Z87.891 Personal history of nicotine dependence; G47.33 Obstructive sleep apnea (adult) (pediatric)
CPT/HCPCS: 94010; 99213

== ENCOUNTER → 2023-10-29 09:13 | Outpatient (BNVA) | payer OTHER, SELFPAY | PROVIDERS: PCP Internal Medicine; Visit Provider Internal Medicine | DX: G47.33 Obstructive sleep apnea (adult) (pediatric) (principal); J44.9 Chronic obstructive pulmonary disease, unspecified; Z87.891 Personal history of nicotine dependence | CPT/HCPCS: 94010; 99212 ==

== ENCOUNTER 2023-11-05 08:47 | Outpatient (AMB) | payer OTHER, SELFPAY ==
--- NOTE | 2023-11-05 08:53 | MHC.OFFVIS ---
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 Required: No Accompanied by: Self / Same As Patient Allergies gabapentin Adverse Reaction (Intermediate, Verified 11/05/23 08:56) dizziness Medication List - Last Reconciled 11/05/23 by Pascual Garcia MD albuterol sulfate 90 mcg/actuation 2 puffs inhalation Q4-6H PRN apixaban (Eliquis) 5 mg PO BID 90 days buprenorphine-naloxone 2-0.5 mg (Suboxone) 1 film buccal DAILY cholecalciferol (vitamin D3) (Vitamin D3) 2,000 units PO DAILY diltiazem HCl 120 mg PO DAILY 90 days dronedarone (Multaq) 400 mg PO BID empagliflozin (Jardiance) 25 mg PO DAILY metformin 1,000 mg PO BID polyethylene glycol 3350 (Miralax) 17 grams PO DAILY rosuvastatin 40 mg PO DAILY HPI HPI Comments History of Present Illness Details Bran returns for follow-up regarding atrial fibrillation. He remains on a combination of diltiazem and Multaq. He states he feels fine from cardiac. No complaints like angina or shortness of breath or palpitations or in fact anything cardiac sounding. [facility] Medical History Personal history of nicotine dependence COPD (chronic obstructive pulmonary disease) Insomnia Sleep disorder Obstructive sleep apnea PAF (paroxysmal atrial fibrillation) Essential (primary) hypertension Opioid dependence with unspecified opioid-induced disorder Peripheral vascular disease due to secondary diabetes Vitamin D deficiency Type 2 diabetes mellitus without complications Surgical History History of colonoscopy History of incisional hernia repair History of inguinal hernia repair History of colostomy History of colostomy reversal History of dental surgery History of hernia repair Family History Father No problems noted. Mother Lung cancer, Onset Age: 48 Brother No problems noted. Brother No problems noted. Brother No problems noted. Sister No problems noted. Social History Household Members: Spouse Housing: Apartment Are you a primary career and technology education teacher to a significant other at home: No Do you presently have visiting nurse or other home services: No Alcohol intake: never Comment: with patient at present Patient Tobacco Use Status: Current everyday Tobacco user Tobacco use type: Cigarette Cigarette Packs Per Day: 1 Cigarettes Per Day: 20.0 Years Smoked: 45 e-Cigarette/Vaping Use: Never Used Second Hand Smoke Exposure: Yes Substance Use Type: Marijuana Advance Directives Date on File: 02/01/21 service: No Current occupational status: disabled Current occupation: right handed Cognitive needs: No Hearing needs: No Vision needs: Yes (glasses) Review of Systems Const Denies weakness ENT Denies dizziness Card Denies chest pain, Denies chest pain with activity, Denies syncope, Denies rapid heart rate, Denies pedal edema, Denies edema, Denies leg edema, Denies lightheadedness, Denies palpitations, Reports dyspnea, Denies dyspnea on exertion and Denies orthopnea Resp Denies cough, Reports dyspnea and Denies dyspnea on exertion GI Denies hematochezia and Denies change in stool character Musc Denies abnormal gait, Denies muscle cramps, Denies muscle weakness, Denies numbness, Denies radiating pain into limb and Denies tingling Neuro Denies abnormal gait, Denies dizziness, Denies syncope, Denies numbness, Denies tingling and Denies weakness Endo Denies palpitations Physical Exam Vital Signs: Last Vital Signs Pulse 71 11/05/23 08:55 BP 126/74 11/05/23 08:55 BMI result Body Mass Index 31.4 Const General: comfortable and no acute distress Orientation/consciousness: patient oriented x3 HEENT Other: Unremarkable Head: Yes normal to inspection Neck Neck: Yes normal visual inspection Chest Chest palpation & inspection: normal inspection of the chest Resp Auscultation: clear to auscultation bilaterally Cardio Palpation: normal PMI Heart sounds: S1 normal heart sound present, S2 normal heart sound present, no gallops, no murmurs and no rubs GI Palpation (GI): Soft to palpation Back/Spine/Pelvis Other: unremarkable Skin General skin exam: no rashes or lesions noted Neuro General: patient oriented x3 Extrem General: Yes normal to inspection Psych Mental Status: mental status grossly normal Office Procedures EKG Details: EKG with sinus rhythm at 71/Min; no significant ST-T changes and otherwise [place]remark[place]. [place] [id number], Complete Assessment & Plan Assessment & Plan (1) PAF (paroxysmal atrial fibrillation): Code(s): I48.0 - Paroxysmal atrial fibrillation Plan: Stable on Multaq, diltiazem. No changes. May continue. Continue Eliquis. In the past, had reported tiredness from beta-blockers. Echocardiogram with hyperdynamic LVEF, >70%; mild left atrial dilatation; mild aortic, mitral valve calcification. Myocardial perfusion imaging study without any evidence of ischemia or infarction. (2) Encounter for monitoring anti-arrhythmic therapy: Code(s): Z51.81 - Encounter for therapeutic drug level monitoring; Z79.899 - Other supervisor intermediates (current) drug therapy Plan: Stable on Multaq. EKG in 3 months. (3) Personal history of nicotine dependence: Comment: (Current smoker, onset 11yo , 1ppd x 45, 45pyh, + fam hx) Counseled that he should try to quit smoking completely, or at least start cutting down the number of cigarettes. He does not want to use any nicotine products. Will continue to have annual lung screening, with low-dose CT scan. Code(s): Z87.891 - Personal history of nicotine dependence Plan: Has been discussed numerous times including today. Coding Level of Care Code Est Pt Level 4 (09557) Diagnoses PAF (paroxysmal atrial fibrillation) I48.0 Encounter for monitoring anti-arrhythmic therapy Z51.81; Z79.899 Personal history of nicotine dependence Z87.891 CPT Codes EKG - CPT: 42472-[id number], Complete ([id number])
[2023-11-05 08:55] VITALS: BP 126/74; PULSE 71; BMI 31.4
== END 2023-11-05 09:11 | disposition home or self-care (01) ==
PROVIDERS: PCP Internal Medicine; Visit Provider Internal Medicine
DX: I48.0 Paroxysmal atrial fibrillation (principal); Z51.81 Encounter for therapeutic drug level monitoring; Z79.899 Other long term (current) drug therapy; Z87.891 Personal history of nicotine dependence
CPT/HCPCS: 93010; 99214

== ENCOUNTER → 2023-11-05 08:47 | Outpatient (BNVA) | payer OTHER, SELFPAY | PROVIDERS: PCP Internal Medicine; Visit Provider Internal Medicine | DX: I48.0 Paroxysmal atrial fibrillation (principal); Z51.81 Encounter for therapeutic drug level monitoring; Z79.899 Other long term (current) drug therapy; Z87.891 Personal history of nicotine dependence | CPT/HCPCS: 93005; 99212 ==

== ENCOUNTER 2024-01-30 07:48 | Outpatient (AMB) | payer OTHER, SELFPAY ==
[2024-01-30 07:51] VITALS: BP 148/76; PULSE 78; O2SAT 97; BMI 31.0
--- NOTE | 2024-01-30 07:51 | A.OFFPC_ITS ---
"Vital Signs 01/30/24 07:51 Height 5 ft 8 in Weight 204 lb BMI 31.0 BP 148/76 H Blood Pressure Location Lt brachial Position Sitting Pulse 78 Pulse Source Pulse Oximeter Pulse Oximetry (%) 97 Oxygen Delivery Method Room Air Intake Visit Reasons: 3mth f/u Allergies gabapentin Adverse Reaction (Intermediate, Verified 01/30/24 07:51) dizziness Tobacco use date assessed: 01/30/24 Dental Screening Dental Screen Date: 01/30/24 Did you have a dental visit in the last 12 months?: No Did you have a dental problem in the last 6 months where you did not have access to dental care?: No Was dental information given to patient?: No HPI 3mth f/u HPI Details 58-year-old male presents to the office to discuss his chronic medical conditions. Patient is requesting that his Suboxone dosage be increased. He believes that his pain symptoms can be better controlled with the increased dosage. Continues to function and do activities of daily living. Continues to drive. Patient would like to have his toes examined. He believes that the nail on the great toe of the right foot is discolored. Minimal discomfort. Compliant with medications. Has been checking his sugars at home and they are in range. [facility] Medical History Personal history of nicotine dependence COPD (chronic obstructive pulmonary disease) Insomnia Sleep disorder Obstructive sleep apnea PAF (paroxysmal atrial fibrillation) Essential (primary) hypertension Opioid dependence with unspecified opioid-induced disorder Peripheral vascular disease due to secondary diabetes Vitamin D deficiency Type 2 diabetes mellitus without complications Surgical History History of colonoscopy History of incisional hernia repair History of inguinal hernia repair History of colostomy History of colostomy reversal History of dental surgery History of hernia repair Family History Father No problems noted. Mother Lung cancer, Onset Age: 48 Brother No problems noted. Brother No problems noted. Brother No problems noted. Sister No problems noted. Social History Household Members: Spouse Housing: Apartment Are you a primary career center director to a significant other at home: No Do you presently have visiting nurse or other home services: No Alcohol intake: never Comment: with patient at present Patient Tobacco Use Status: Current everyday Tobacco user Tobacco use type: Cigarette Cigarette Packs Per Day: 1 Cigarettes Per Day: 20.0 Years Smoked: 45 e-Cigarette/Vaping Use: Never Used Second Hand Smoke Exposure: Yes Substance Use Type: Marijuana Advance Directives Date on File: 02/01/21 service: No Current occupational status: disabled Current occupation: right handed Cognitive needs: No Hearing needs: No Vision needs: Yes (glasses) Questionnaire PHQ-9 Over the last 2 weeks, how often have you been bothered by any of the following problems? 1. Little interest or pleasure in doing things: not at all 2. Feeling down, depressed, or hopeless: not at all 3. Trouble falling or staying asleep, or sleeping too much: not at all 4. Feeling tired or having little energy: not at all 5. Poor appetite or overeating: not at all 6. Feeling bad about yourself - or that you are a failure or have let yourself or your family down: not at all 7. Trouble concentrating on things, such as reading the newspaper or watching television: not at all 8. Moving or speaking so slowly that other people could have noticed. Or the opposite - being so fidgety or restless that you have been moving around a lot more than usual: not at all 9. Thoughts that you would be better off or of hurting yourself in some way: not at all Total score: 0 Depression Screening Interpretation: Negative Depression Screening Done: Yes Source: Developed by Drs. Vic Ragsdale, Carmencita Joshua, Joce Boswell and colleagues, with an educational aleja from [employer]. Thrive Questionnaire Date Thrive assessed: 10/03/23 AUDIT C Alcohol Use Questionnaire (AUDIT-C) 1. How often do you have a drink containing alcohol?: Never Total Score: 0 WANDER-7 AMB Questionnaire WANDER-7 Date WANDER - 7 assessed: 10/03/23 Source: Developed by Drs. Vic Ragsdale, Carmencita Joshua, Joce Boswell and colleagues, with an educational aleja from [employer]. Physical exam (Primary Care) Vital Signs: Last Vital Signs Pulse 78 01/30/24 07:51 BP 148/76 H 01/30/24 07:51 Pulse Ox 97 01/30/24 07:51 Oxygen Delivery Method Room Air 01/30/24 07:51 Care Plan Goal for BP management: Blood pressure is in range. BMI result Body Mass Index 31.0 BMI Assessment/Plan discussion: High ( 1 lb per week weight loss suggested.) BMI High, discussed plan: lifestyle, weight reduction and dietary Tobacco/Smoking Status: Tobacco use Status Tobacco use date assessed 01/30/24 01/30/24 07:52 Patient Tobacco Use Status Current everyday Tobacco 01/30/24 07:52 Tobacco use type Cigarette 01/30/24 07:52 e-Cigarette/Vaping Use Never Used 01/30/24 07:52 Are you ready to quit: No PHQ-9: PHQ-9 Score PHQ-9: Total score 0 01/30/24 08:07 Depression Screening Interpretation: Negative Thrive Assessment: Date of Thrive Assessment Date Thrive assessed 10/03/23 01/30/24 07:52 Const General: cooperative and healthy appearing Nutritional Appearance: well nourished Orientation/consciousness: patient oriented x3 Limitations: no limitations HENMT Head: Yes normal to inspection Eyes General: appearance normal, both eyes and all related structures Neck Neck: Yes normal visual inspection Chest Chest palpation & inspection: normal palpation of entire chest wall Resp Effort & Inspection: normal respiratory effort Neuro General: patient oriented x3 Results AMB Hemoglobin A1c AMB Hemoglobin A1c 6.4 % Last Edit by Emmei Fuentes CMA on 01/30/24 08 :07 Assessment and Plan Assessment & Plan (1) Opioid dependence with unspecified opioid-induced disorder: Code(s): F11.29 - Opioid dependence with unspecified opioid-induced disorder Plan: Suboxone dosage has been increased to 4 mg of buprenorphine once a day. (2) Type 2 diabetes mellitus without complications: Code(s): E11.9 - Type 2 diabetes mellitus without complications Qualifiers: Diabetes mellitus correction insulin use: without correction use Qualified Code(s): E11.9 - Type 2 diabetes mellitus without complications Plan: A1c has improved to 6.4. Continue medications at same dosage. (3) COPD (chronic obstructive pulmonary disease): Comment: (Chronic Smoker, Mild GAYTAN - As per pulmonary function test he has only mild degree of obstructive airway disorder. SPIROMETRY IN THE OFFICE TODAY : Again shows only mild obstructive airway disorder, Code(s): J44.9 - Chronic obstructive pulmonary disease, unspecified (4) Personal history of nicotine dependence: Comment: (Current smoker, onset 11yo , 1ppd x 45, 45pyh, + fam hx) Counseled that he should try to quit smoking completely, or at least start cutting down the number of cigarettes. He does not want to use any nicotine products. Will continue to have annual lung screening, with low-dose CT scan. Code(s): Z87.891 - Personal history of nicotine dependence Orders: Orders AMB Hemoglobin A1c Today Z13.9 - Encounter for screening, unspecified Medications: New buprenorphine-naloxone 4-1 mg (Suboxone) place 1 strip/tab under (each) side of tongue 1 film buccal Q24H 30 ea 0RF Discontinued buprenorphine-naloxone 2-0.5 mg (Suboxone) place 1 strip/tab under (each) side of tongue Discontinued Reason: Doctor's Order 1 film buccal DAILY 30 ea 0RF Coding Level of Care Code Est Pt Level 4 (20491) Complex EM visit Add On G2211 Diagnoses Opioid dependence with unspecified opioid-induced disorder F11.29 Type 2 diabetes mellitus without complication, without long-term current use of insulin E11.9 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
== END 2024-01-30 08:14 | disposition home or self-care (01) ==
PROVIDERS: PCP Internal Medicine; Visit Provider Internal Medicine
DX: F11.29 Opioid dependence with unspecified opioid-induced disorder (principal); E11.9 Type 2 diabetes mellitus without complications; J44.9 Chronic obstructive pulmonary disease, unspecified; Z87.891 Personal history of nicotine dependence; Z13.9 Encounter for screening, unspecified
CPT/HCPCS: 83036; 99214; G2211

== ENCOUNTER 2024-02-10 08:31 | Outpatient (AMB) | payer OTHER, SELFPAY ==
--- NOTE | 2024-02-10 08:37 | AM.OFFVISNUR ---
Intake Vital Signs 02/10/24 08:37 Weight 202 lb 13.204 oz Intake Visit Reasons: ekg Allergies gabapentin Adverse Reaction (Intermediate, Verified 01/30/24 07:51) dizziness Nursing Note PT is taking Dronedarone 400 mg PO BID EKG left on Providers desk for review Office Procedures EKG [id number], Complete Coding CPT Codes EKG - CPT: 34943-[id number], Complete ([id number])
== END 2024-02-10 09:05 | disposition home or self-care (01) ==
PROVIDERS: PCP Internal Medicine; Visit Provider Internal Medicine
DX: I48.0 Paroxysmal atrial fibrillation (principal)
CPT/HCPCS: 93010

== ENCOUNTER → 2024-02-10 08:31 | Outpatient (BNVA) | payer OTHER, SELFPAY | PROVIDERS: PCP Internal Medicine; Visit Provider Internal Medicine | DX: I48.0 Paroxysmal atrial fibrillation (principal) | CPT/HCPCS: 93005 ==

== ENCOUNTER 2024-04-02 08:04 | Outpatient (AMB) | payer OTHER, SELFPAY ==
[2024-04-02 08:10] VITALS: BP 110/64; PULSE 86; O2SAT 98; BMI 31.6
--- NOTE | 2024-04-02 08:10 | MHC.PC.OV ---
Vital Signs 04/02/24 08:10 Height 5 ft 8 in Weight 208 lb BMI 31.6 BP 110/64 Blood Pressure Location Lt brachial Position Sitting Pulse 86 Pulse Source Pulse Oximeter Pulse Oximetry (%) 98 Oxygen Delivery Method Room Air Intake Visit Reasons: 3mth f/u Decontamination Technician Required: No Allergies gabapentin Adverse Reaction (Intermediate, Verified 04/02/24 08:35) dizziness Medication List - Last Reconciled 04/02/24 by Kris Ivory MD albuterol sulfate 90 mcg/actuation 2 puffs inhalation Q4-6H PRN apixaban (Eliquis) 5 mg PO BID buprenorphine-naloxone 4-1 mg (Suboxone) 1 film buccal Q24H cholecalciferol (vitamin D3) (Vitamin D3) 2,000 units PO DAILY diltiazem HCl CD 120 mg PO DAILY 90 days dronedarone (Multaq) 400 mg PO BID empagliflozin (Jardiance) 25 mg PO DAILY metformin 1,000 mg PO BID polyethylene glycol 3350 (Miralax) 17 grams PO DAILY rosuvastatin 40 mg PO DAILY Tobacco use date assessed: 01/30/24 Dental Screening Dental Screen Date: 01/30/24 HPI 3mth f/u HPI Details 58-year-old male presents to the office to discuss his chronic medical conditions. In the last office visit, the Suboxone dosage was increased for better pain control. Patient seems to have improved with the increased dosage. Still has pain at baseline. Atrial fibrillation is stable. Compliant with his medications including the anticoagulants. Blood sugars have been stable. Patient is compliant with medications. Checks his blood sugars once a week [facility] Medical History Personal history of nicotine dependence COPD (chronic obstructive pulmonary disease) Insomnia Sleep disorder Obstructive sleep apnea PAF (paroxysmal atrial fibrillation) Essential (primary) hypertension Opioid dependence with unspecified opioid-induced disorder Peripheral vascular disease due to secondary diabetes Vitamin D deficiency Type 2 diabetes mellitus without complications Surgical History History of colonoscopy History of incisional hernia repair History of inguinal hernia repair History of colostomy History of colostomy reversal History of dental surgery History of hernia repair Family History Father No problems noted. Mother Lung cancer, Onset Age: 48 Brother No problems noted. Brother No problems noted. Brother No problems noted. Sister No problems noted. Social History Household Members: Spouse Housing: Apartment Are you a primary wound care technician to a significant other at home: No Do you presently have visiting nurse or other home services: No Alcohol intake: never Comment: with patient at present Patient Tobacco Use Status: Current everyday Tobacco user Tobacco use type: Cigarette Cigarette Packs Per Day: 1 Cigarettes Per Day: 20.0 Years Smoked: 45 e-Cigarette/Vaping Use: Never Used Second Hand Smoke Exposure: Yes Substance Use Type: Marijuana Advance Directives Date on File: 02/01/21 service: No Current occupational status: disabled Current occupation: right handed Cognitive needs: No Hearing needs: No Vision needs: Yes (glasses) Questionnaire Thrive Questionnaire Date Thrive assessed: 10/03/23 AUDIT C Alcohol Use Questionnaire (AUDIT-C) 1. How often do you have a drink containing alcohol?: Never 3. How often do you have six or more drinks on one occasion?: Never Total Score: 0 WANDER-7 AMB Questionnaire WANDER-7 Date WANDER - 7 assessed: 10/03/23 Source: Developed by Drs. Vic Ragsdale, Carmencita Joshua, Joce Boswell and colleagues, with an educational aleja from [employer] Physical exam (Primary Care) Vital Signs: Last Vital Signs Pulse 86 04/02/24 08:10 BP 110/64 04/02/24 08:10 Pulse Ox 98 04/02/24 08:10 Oxygen Delivery Method Room Air 04/02/24 08:10 Care Plan Goal for BP management: Blood pressure is in range. BMI result Body Mass Index 31.6 BMI Assessment/Plan discussion: High (Weight loss counseling done.) BMI High, discussed plan: lifestyle, weight reduction and dietary Tobacco/Smoking Status: Tobacco use Status Tobacco use date assessed 01/30/24 04/02/24 08:11 Patient Tobacco Use Status Current everyday Tobacco 04/02/24 08:11 Tobacco use type Cigarette 04/02/24 08:11 e-Cigarette/Vaping Use Never Used 04/02/24 08:11 Are you ready to quit: No Tobacco cessation counseling provided: No Thrive Assessment: Date of Thrive Assessment Date Thrive assessed 10/03/23 04/02/24 08:11 Const General: cooperative and healthy appearing Nutritional Appearance: well nourished Orientation/consciousness: patient oriented x3 Limitations: no limitations HENMT Head: Yes normal to inspection Eyes General: appearance normal, both eyes and all related structures Neck Neck: Yes normal visual inspection Chest Chest palpation & inspection: normal palpation of entire chest wall Resp Effort & Inspection: normal respiratory effort GI Other: Healed surgical scars in the abdomen. Neuro General: patient oriented x3 Assessment and Plan Assessment & Plan (1) Opioid dependence with unspecified opioid-induced disorder: Code(s): F11.29 - Opioid dependence with unspecified opioid-induced disorder Plan: Continue Suboxone at current dose. (2) PAF (paroxysmal atrial fibrillation): Code(s): I48.0 - Paroxysmal atrial fibrillation Plan: Clinically patient is in sinus rhythm. Continue anticoagulants and other medications. (3) Peripheral vascular disease due to secondary diabetes: Code(s): E13.51 - Other specified diabetes mellitus with diabetic peripheral angiopathy without gangrene (4) Type 2 diabetes mellitus without complications: Code(s): E11.9 - Type 2 diabetes mellitus without complications Qualifiers: Diabetes mellitus assisted insulin use: without manager long term care use Qualified Code(s): E11.9 - Type 2 diabetes mellitus without complications Plan: A1c is in range. Continue medications at same dosage. (5) COPD (chronic obstructive pulmonary disease): Comment: (Chronic Smoker, Mild GAYTAN - As per pulmonary function test he has only mild degree of obstructive airway disorder. SPIROMETRY IN THE OFFICE TODAY : Again shows only mild obstructive airway disorder, Code(s): J44.9 - Chronic obstructive pulmonary disease, unspecified Plan: Condition is stable (6) Personal history of nicotine dependence: Comment: (Current smoker, onset 11yo , 1ppd x 45, 45pyh, + fam hx) Counseled that he should try to quit smoking completely, or at least start cutting down the number of cigarettes. He does not want to use any nicotine products. Will continue to have annual lung screening, with low-dose CT scan. Code(s): Z87.891 - Personal history of nicotine dependence Plan: Patient has no intention in quitting smoking. Understands the risks of smoking. Orders: Orders Lipid Panel Today E11.9 - Type 2 diabetes mellitus without complications, E13.51 - Other specified diabetes mellitus with diabetic peripheral angiopathy without gangrene, F11.29 - Opioid dependence with unspecified opioid-induced disorder, I48.0 - Paroxysmal atrial fibrillation, J44.9 - Chronic obstructive pulmonary disease, unspecified, Z87.891 - Personal history of nicotine dependence UA and rflx microscopic Today E11.9 - Type 2 diabetes mellitus without complications, E13.51 - Other specified diabetes mellitus with diabetic peripheral angiopathy without gangrene, F11.29 - Opioid dependence with unspecified opioid-induced disorder, I48.0 - Paroxysmal atrial fibrillation, J44.9 - Chronic obstructive pulmonary disease, unspecified, Z87.891 - Personal history of nicotine dependence Complete Blood Count no Diff Today E11.9 - Type 2 diabetes mellitus without complications, E13.51 - Other specified diabetes mellitus with diabetic peripheral angiopathy without gangrene, F11.29 - Opioid dependence with unspecified opioid-induced disorder, I48.0 - Paroxysmal atrial fibrillation, J44.9 - Chronic obstructive pulmonary disease, unspecified, Z87.891 - Personal history of nicotine dependence Basic Metabolic Panel Today E11.9 - Type 2 diabetes mellitus without complications, E13.51 - Other specified diabetes mellitus with diabetic peripheral angiopathy without gangrene, F11.29 - Opioid dependence with unspecified opioid-induced disorder, I48.0 - Paroxysmal atrial fibrillation, J44.9 - Chronic obstructive pulmonary disease, unspecified, Z87.891 - Personal history of nicotine dependence Liver Panel Today E11.9 - Type 2 diabetes mellitus without complications, E13.51 - Other specified diabetes mellitus with diabetic peripheral angiopathy without gangrene, F11.29 - Opioid dependence with unspecified opioid-induced disorder, I48.0 - Paroxysmal atrial fibrillation, J44.9 - Chronic obstructive pulmonary disease, unspecified, Z87.891 - Personal history of nicotine dependence Thyroid Stimulating Hormone Today E11.9 - Type 2 diabetes mellitus without complications, E13.51 - Other specified diabetes mellitus with diabetic peripheral angiopathy without gangrene, F11.29 - Opioid dependence with unspecified opioid-induced disorder, I48.0 - Paroxysmal atrial fibrillation, J44.9 - Chronic obstructive pulmonary disease, unspecified, Z87.891 - Personal history of nicotine dependence Coding Level of Care Code Est Pt Level 4 (06054) Complex EM visit Add On G2211 Diagnoses Opioid dependence with unspecified opioid-induced disorder F11.29 PAF (paroxysmal atrial fibrillation) I48.0 Peripheral vascular disease due to secondary diabetes E13.51 Type 2 diabetes mellitus without complication, without long-term current use of insulin E11.9 Diabetes mellitus assisted insulin use: without manager long term care use COPD (chronic obstructive pulmonary disease) J44.9 Personal history of nicotine dependence Z87.896
== END 2024-04-02 08:33 | disposition home or self-care (01) ==
PROVIDERS: PCP Internal Medicine; Visit Provider Internal Medicine
DX: F11.29 Opioid dependence with unspecified opioid-induced disorder (principal); I48.0 Paroxysmal atrial fibrillation; E11.51 Type 2 diabetes mellitus with diabetic peripheral angiopathy without gangrene; J44.9 Chronic obstructive pulmonary disease, unspecified; Z87.891 Personal history of nicotine dependence
CPT/HCPCS: 99214; G2211

== ENCOUNTER 2024-04-02 08:47 | Outpatient (REF) | payer OTHER, SELFPAY ==
[2024-04-02 09:47] LABS: Hematocrit 47.5 % (42.0-52.0); Hemoglobin 15.7 g/dl (14.0-18.0); Mean Corpuscular HGB Conc 33.1 g/dl (31.0-36.0); Mean Corpuscular Hemoglobin 28.4 pg (27.0-33.0); Mean Corpuscular Volume 86.1 fL (80.0-98.0); Mean Platelet Volume 9.5 fL (9.4-12.4); Platelet Count 253 X10*3/uL (160-400); Red Blood Count 5.52 X10*6/uL (4.60-5.80); White Blood Count 11.2 X10*3/uL (4.8-10.8)
[2024-04-02 09:52] LABS: Appearance Urine Clear; Color Urine Yellow; Glucose Urine UA >=1000 mg/dL (Negative); Leukocyte Esterase Urine Negative (Negative); Nitrite Urine Negative (Negative); PH 5.5 (5.0-9.0); Specific Gravity - Urine >= 1.030 (1.005-1.025); UMIC TRIGGER UA YES; Urine Blood Negative (Negative); Urine Ketones Negative (Negative); Urine Protein Negative (Neg-Trace)
[2024-04-02 09:54] LABS: Bacteria Urine None Seen (None Seen); Hyaline Casts Urine 0-2 /LPF (0-2); RBC Urine 0-2 /HPF (0-2); Squamous Epithelial Cell Urine 0-2 /HPF (0-2); WBC Urine 0-5 /HPF (0-5)
[2024-04-02 10:18] LABS: Alanine Aminotransferase 13 U/L (0-40); Albumin Level 4.5 g/dL (3.5-5.0); Alkaline Phosphatase 74 U/L (39-117); Anion Gap 14 (12-20); Aspartate Amino Transferase 18 U/L (5-37); Bilirubin Direct 0.2 mg/dL (0.0-0.5); Bilirubin Total 0.6 mg/dL (0.0-1.0); Blood Urea Nitrogen 14 mg/dL (9-16); Calcium 9.5 mg/dL (8.4-10.2); Carbon Dioxide 27 mmol/L (22-29); Chloride 101 mmol/L (96-108); Cholesterol 94 mg/dL (<200); Estimated Glomerular Filt Rate > 60; Glucose Random 179 mg/dL (60-115); HDL Cholesterol 33 mg/dL (>40); LDL Cholesterol Calculated 0 mg/dL (<100); Sodium 138 mmol/L (135-145); Total Protein 7.6 g/dL (6.5-8.0); Triglycerides 308 mg/dL (<150)
[2024-04-02 10:34] LABS: Thyroid Stimulating Hormone 0.78 uIU/mL (0.32-4.0)
== END 2024-04-02 08:48 | disposition home or self-care (01) ==
LOC: HO.LAB 08:47
PROVIDERS: PCP Internal Medicine; Visit Provider Internal Medicine
DX: F11.29 Opioid dependence with unspecified opioid-induced disorder (principal); I48.0 Paroxysmal atrial fibrillation; E13.51 Other specified diabetes mellitus with diabetic peripheral angiopathy without gangrene; J44.9 Chronic obstructive pulmonary disease, unspecified; Z87.891 Personal history of nicotine dependence
CPT/HCPCS: 36415; 80048; 80061; 80076; 81001; 84443; 85027

== ENCOUNTER 2024-06-01 08:09 | Outpatient (AMB) | payer OTHER, SELFPAY ==
[2024-06-01 08:20] VITALS: BP 120/68; PULSE 66; BMI 31.1
--- NOTE | 2024-06-01 08:20 | MHC.OFFVIS ---
Vital Signs 06/01/24 08:20 Height 5 ft 8 in Weight 204 lb 9.423 oz BMI 31.1 BP 120/68 Blood Pressure Location Lt brachial Position Sitting Pulse 66 Intake Visit Reasons: 6 mth f/up w/ ekg Sod Stripper Required: No Accompanied by: Self / Same As Patient Allergies gabapentin Adverse Reaction (Intermediate, Verified 04/02/24 08:35) dizziness Medication List - Last Reconciled 06/01/24 by Pascual Garcia MD albuterol sulfate 90 mcg/actuation 2 puffs inhalation Q4-6H PRN apixaban (Eliquis) 5 mg PO BID buprenorphine-naloxone 4-1 mg (Suboxone) 1 film buccal Q24H cholecalciferol (vitamin D3) (Vitamin D3) 2,000 units PO DAILY diltiazem HCl CD 120 mg PO DAILY 90 days dronedarone (Multaq) 400 mg PO BID empagliflozin (Jardiance) 25 mg PO DAILY metformin 1,000 mg PO BID polyethylene glycol 3350 (Miralax) 17 grams PO DAILY rosuvastatin 40 mg PO DAILY HPI Comments Details: Bran returns for follow-up regarding atrial fibrillation. He remains on a combination of diltiazem and Multaq. From the cardiac standpoint, no symptoms. Feels fine. [facility] Medical History Personal history of nicotine dependence COPD (chronic obstructive pulmonary disease) Insomnia Sleep disorder Obstructive sleep apnea PAF (paroxysmal atrial fibrillation) Essential (primary) hypertension Opioid dependence with unspecified opioid-induced disorder Peripheral vascular disease due to secondary diabetes Vitamin D deficiency Type 2 diabetes mellitus without complications Surgical History History of colonoscopy History of incisional hernia repair History of inguinal hernia repair History of colostomy History of colostomy reversal History of dental surgery History of hernia repair Family History Father No problems noted. Mother Lung cancer, Onset Age: 48 Brother No problems noted. Brother No problems noted. Brother No problems noted. Sister No problems noted. Social History Household Members: Spouse Housing: Apartment Are you a primary career education teacher to a significant other at home: No Do you presently have visiting nurse or other home services: No Alcohol intake: never Comment: with patient at present Patient Tobacco Use Status: Current everyday Tobacco user Tobacco use type: Cigarette Cigarette Packs Per Day: 1 Cigarettes Per Day: 20.0 Years Smoked: 45 e-Cigarette/Vaping Use: Never Used Second Hand Smoke Exposure: Yes Substance Use Type: Marijuana Advance Directives Date on File: 02/01/21 service: No Current occupational status: disabled Current occupation: right handed Cognitive needs: No Hearing needs: No Vision needs: Yes (glasses) Review of Systems Const Denies chills, Denies fatigue, Denies fever(s), Denies weight gain and Denies weight loss ENT Denies dizziness Card Denies chest pain, Denies leg edema, Denies lightheadedness, Denies palpitations, Denies dyspnea on exertion, Denies orthopnea and Denies other Resp Denies cough and Denies dyspnea on exertion GI Denies hematochezia and Denies change in stool character Musc Denies abnormal gait, Denies muscle weakness, Denies numbness, Denies radiating pain into limb and Denies tingling Neuro Denies abnormal gait, Denies dizziness, Denies numbness and Denies tingling Endo Denies fatigue and Denies palpitations Physical Exam Vital Signs: Last Vital Signs Pulse 66 06/01/24 08:20 BP 120/68 06/01/24 08:20 BMI result Body Mass Index 31.1 Const General: comfortable and no acute distress Orientation/consciousness: patient oriented x3 HEENT Other: Unremarkable Head: Yes normal to inspection Neck Neck: Yes normal visual inspection Chest Chest palpation & inspection: normal inspection of the chest Resp Auscultation: clear to auscultation bilaterally Cardio Palpation: normal PMI Heart sounds: S1 normal heart sound present, S2 normal heart sound present, no gallops, no murmurs and no rubs GI Palpation (GI): Soft to palpation Back/Spine/Pelvis Other: unremarkable Skin General skin exam: no rashes or lesions noted Neuro General: patient oriented x3 Extrem General: Yes normal to inspection Psych Mental Status: mental status grossly normal Office Procedures EKG Details: EKG with underlying sinus rhythm at 66/Min; no significant ST-T changes and otherwise unremarkable[place]. [id number], Complete Assessment & Plan Assessment & Plan (1) PAF (paroxysmal atrial fibrillation): Code(s): I48.0 - Paroxysmal atrial fibrillation Category: Medical Plan: Stable on Multaq, diltiazem. No changes. May continue. Continue Eliquis. In the past, had reported tiredness from beta-blockers. [id number] hyperdynamic LVEF, >70%; mild left atrial dilatation; mild aortic, mitral valve calcification. Myocardial perfusion imaging study -2020-without any evidence of ischemia or infarction. 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 EKG in 3 months. (3) Personal history of nicotine dependence: Comment: (Current smoker, onset 11yo , 1ppd x 45, 45pyh, + fam hx) Counseled that he should try to quit smoking completely, or at least start cutting down the number of cigarettes. He does not want to use any nicotine products. Will continue to have annual lung screening, with low-dose CT scan. Code(s): Z87.891 - Personal history of nicotine dependence Category: Medical Plan: Strongly advised to stop. Coding Level of Care Code Est Pt Level 4 (98948) Diagnoses PAF (paroxysmal atrial fibrillation) I48.0 Encounter for monitoring anti-arrhythmic therapy Z51.81; Z79.899 Personal history of nicotine dependence Z87.891 CPT Codes EKG - CPT: 76675-[id number], Complete ([id number])
== END 2024-06-01 08:39 | disposition home or self-care (01) ==
PROVIDERS: PCP Internal Medicine; Visit Provider Internal Medicine
DX: I48.0 Paroxysmal atrial fibrillation (principal); Z51.81 Encounter for therapeutic drug level monitoring; Z79.899 Other long term (current) drug therapy; Z87.891 Personal history of nicotine dependence
CPT/HCPCS: 93010; 99214

== ENCOUNTER → 2024-06-01 08:09 | Outpatient (BNVA) | payer OTHER, SELFPAY | PROVIDERS: PCP Internal Medicine; Visit Provider Internal Medicine | DX: I48.0 Paroxysmal atrial fibrillation (principal); F17.210 Nicotine dependence, cigarettes, uncomplicated; Z79.899 Other long term (current) drug therapy; Z51.81 Encounter for therapeutic drug level monitoring | CPT/HCPCS: 93005; 99212 ==

== ENCOUNTER 2024-07-14 09:18 | Outpatient (AMB) | payer OTHER, SELFPAY ==
--- NOTE | 2024-07-14 09:21 | MHC.PC.OV ---
Vital Signs 07/14/24 09:23 Height 5 ft 8 in Weight 207 lb 6 oz BMI 31.5 BP 120/62 Blood Pressure Location Lt brachial Position Sitting Pulse 84 Pulse Source Pulse Oximeter Pulse Oximetry (%) 98 Oxygen Delivery Method Room Air Intake Visit Reasons: Annual Exam/ Follow Up Intake Note: Patient is here today for a physical. Pt decline flu shot today. 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 per policy Accompanied by: Self / Same As Patient Allergies gabapentin Adverse Reaction (Intermediate, Verified 07/14/24 09:46) dizziness Medication List - Last Reconciled 07/14/24 by Kris Ivory MD albuterol sulfate 90 mcg/actuation 2 puffs inhalation Q4-6H PRN apixaban (Eliquis) 5 mg PO BID buprenorphine-naloxone 4-1 mg (Suboxone) 1 film buccal Q24H cholecalciferol (vitamin D3) (Vitamin D3) 2,000 units PO DAILY diltiazem HCl CD 120 mg PO DAILY 90 days dronedarone (Multaq) 400 mg PO BID empagliflozin (Jardiance) 25 mg PO DAILY metformin 1,000 mg PO BID polyethylene glycol 3350 (Gavilax) 17 grams PO DAILY rosuvastatin 40 mg PO DAILY Tobacco use date assessed: 07/14/24 Dental Screening Dental Screen Date: 01/30/24 HPI Annual Exam/ Follow Up HPI Details 58-year-old male presents to the office for an annual physical. Patient reports that his chronic symptoms of pain are worse this morning. Continues to have similar kind of pain which is partially relieved with Suboxone. Continues to smoke. Not checking his blood sugars at home. Compliant with all medications. [facility] Medical History (Updated 07/14/24 @ 09:52 by Kris Ivory MD) Chronic pain syndrome Nicotine dependence, cigarettes, uncomplicated COPD (chronic obstructive pulmonary disease) Insomnia Sleep disorder Obstructive sleep apnea PAF (paroxysmal atrial fibrillation) Essential (primary) hypertension Opioid dependence with unspecified opioid-induced disorder Peripheral vascular disease due to secondary diabetes Vitamin D deficiency Type 2 diabetes mellitus without complications Surgical History History of colonoscopy (~04/30/23) History of incisional hernia repair History of inguinal hernia repair History of colostomy History of colostomy reversal History of dental surgery History of hernia repair Family History Father No problems noted. Mother Lung cancer, Onset Age: 48 Brother No problems noted. Brother No problems noted. Brother No problems noted. Sister No problems noted. Social History Household Members: Spouse Housing: Apartment Are you a primary adult caregiver to a significant other at home: No Do you presently have visiting nurse or other home services: No Alcohol intake: never Comment: with patient at present Patient Tobacco Use Status: Current everyday Tobacco user Tobacco use type: Cigarette Cigarette Packs Per Day: 1 Cigarettes Per Day: 20.0 Years Smoked: 45 e-Cigarette/Vaping Use: Never Used Second Hand Smoke Exposure: Yes Substance Use Type: Marijuana Advance Directives Date on File: 02/01/21 service: No Current occupational status: disabled Current occupation: right handed Cognitive needs: No Hearing needs: No Vision needs: Yes (glasses) Questionnaire PHQ-9 Over the last 2 weeks, how often have you been bothered by any of the following problems? 1. Little interest or pleasure in doing things: more than half the days 2. Feeling down, depressed, or hopeless: not at all 3. Trouble falling or staying asleep, or sleeping too much: nearly every day 4. Feeling tired or having little energy: more than half the days 5. Poor appetite or overeating: not at all 6. Feeling bad about yourself - or that you are a failure or have let yourself or your family down: not at all 7. Trouble concentrating on things, such as reading the newspaper or watching television: several days 8. Moving or speaking so slowly that other people could have noticed. Or the opposite - being so fidgety or restless that you have been moving around a lot more than usual: not at all 9. Thoughts that you would be better off or of hurting yourself in some way: not at all Total score: 8 Depression Screening Interpretation: Positive Depression Screening Done: Yes Source: Developed by Drs. Vic Ragsdale, Carmencita Joshua, Joce Boswell and colleagues, with an educational aleja from [employer] Thrive Questionnaire Date Thrive assessed: 10/03/23 WANDER-7 AMB Questionnaire WANDER-7 Date WANDER - 7 assessed: 10/03/23 Source: Developed by Drs. Vic Ragsdale, Carmencita Joshua, Joce Boswell and colleagues, with an educational aleja from [employer] Physical exam (Primary Care) Vital Signs: Last Vital Signs Pulse 84 07/14/24 09:23 BP 120/62 07/14/24 09:23 Pulse Ox 98 07/14/24 09:23 Oxygen Delivery Method Room Air 07/14/24 09:23 BMI result Body Mass Index 31.5 Tobacco/Smoking Status: Tobacco use Status Tobacco use date assessed 07/14/24 07/14/24 09:29 Patient Tobacco Use Status Current everyday Tobacco 07/14/24 09:29 Tobacco use type Cigarette 07/14/24 09:29 e-Cigarette/Vaping Use Never Used 07/14/24 09:29 PHQ-9: PHQ-9 Score PHQ-9: Total score 8 07/14/24 09:30 Depression Screening Interpretation: Positive Thrive Assessment: Date of Thrive Assessment Date Thrive assessed 10/03/23 07/14/24 09:29 Results AMB Hemoglobin A1c AMB Hemoglobin A1c 7.6 % Last Edit by PACO Malcolm on 07/14/24 09:33 Results Reviewed Results Reviewed: Laboratory Last Values Hgb A1c (Clinic) 7.6 % (4.0-6.0) H 07/14/24 09:21 Coding Level of Care Code Est Pt Prev Care 40-64y(77268) Diagnoses Type 2 diabetes mellitus without complication, without long-term current use of insulin E11.9 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 Patient's A1c is worsening. He believes it is due to poor diet. We will check in 3 months and if A1c is not improving a 2nd agent will be added. I advised the patient to check his blood sugars every day. (2) PAF (paroxysmal atrial fibrillation): Code(s): I48.0 - Paroxysmal atrial fibrillation Category: Medical Plan: Condition is stable. (3) Chronic pain syndrome: Code(s): G89.4 - Chronic pain syndrome Category: Medical Plan: Continue the Suboxone at the same dosage. (4) Annual physical exam: Code(s): Z00.00 - Encounter for general adult medical examination without abnormal findings Plan: Patient is up-to-date on his colonoscopy and immunizations. Orders: Orders AMB Hemoglobin A1c Today E11.9 - Type 2 diabetes mellitus without complications
[2024-07-14 09:23] VITALS: BP 120/62; PULSE 84; O2SAT 98; BMI 31.5
== END 2024-07-14 09:43 | disposition home or self-care (01) ==
PROVIDERS: PCP Internal Medicine; Visit Provider Internal Medicine
DX: E11.9 Type 2 diabetes mellitus without complications (principal); I48.0 Paroxysmal atrial fibrillation; G89.4 Chronic pain syndrome; Z00.00 Encounter for general adult medical examination without abnormal findings

== ENCOUNTER → 2024-07-14 09:18 | Outpatient (BNVA) | payer OTHER, SELFPAY | PROVIDERS: PCP Internal Medicine; Visit Provider Internal Medicine | DX: Z00.00 Encounter for general adult medical examination without abnormal findings (principal); E11.9 Type 2 diabetes mellitus without complications; I48.0 Paroxysmal atrial fibrillation; G89.4 Chronic pain syndrome | CPT/HCPCS: 83036; 96127; 99396 ==

== ENCOUNTER 2024-08-05 09:14 | Outpatient (AMB) | payer OTHER, SELFPAY ==
--- NOTE | 2024-08-05 09:27 | AM.OFFWIN_ITS ---
Intake Vital Signs 08/05/24 09:39 Weight 207 lb BP 122/80 Blood Pressure Location Rt brachial Pulse 98 Pulse Source Pulse Oximeter Pulse Oximetry (%) 97 Oxygen Delivery Method Room Air Intake Visit Reasons: EP cyst on buttocks Intake Note: Patient here for cyst on buttocks that has been present about a few weeks. Patient Tobacco Use Status: Current everyday Tobacco user Allergies gabapentin Adverse Reaction (Intermediate, Verified 08/05/24 09:38) dizziness Do you need a note to return to daycare/school/sports/work: No HPI HPI Comments History of Present Illness Details History of Present Illness The patient is a 58-year-old male presenting with recurrent pilonidal cysts, specifically located in the gluteal cleft. The current issue began approximately one week ago with the development of another cyst in the same location as previous occurrences. A few days into the presentation, the cyst developed a small opening, which allowed some drainage initially. The patient reports having multiple cysts in this area previously, and also mentions experiencing a large cyst on the leg about six months to a year ago, which was successfully incised and drained at that time. Over the past week, the size and hardness of the cyst have increased, and attempted home drainage has proven unsatisfactory, with only partial decompression achieved. The patient recalls a history of being treated with antibiotics in similar situations, although he is uncertain of the specific medication previously prescribed, mentioning a possible relationship with Cephalexin. He also notes that the perforation of the cyst last week provided some temporary relief, though the condition has persisted and is now fully indurated. [facility] Medical History (Updated 08/05/24 @ 09:52 by Ella Templeton PA-C) Chronic pain syndrome Nicotine dependence, cigarettes, uncomplicated COPD (chronic obstructive pulmonary disease) Insomnia Sleep disorder Obstructive sleep apnea PAF (paroxysmal atrial fibrillation) Essential (primary) hypertension Opioid dependence with unspecified opioid-induced disorder Peripheral vascular disease due to secondary diabetes Vitamin D deficiency Type 2 diabetes mellitus without complications Surgical History History of colonoscopy (~04/30/23) History of incisional hernia repair History of inguinal hernia repair History of colostomy History of colostomy reversal History of dental surgery History of hernia repair Family History Father No problems noted. Mother Lung cancer, Onset Age: 48 Brother No problems noted. Brother No problems noted. Brother No problems noted. Sister No problems noted. Social History Household Members: Spouse Housing: Apartment Are you a primary medical care manager to a significant other at home: No Do you presently have visiting nurse or other home services: No Alcohol intake: never Comment: with patient at present Patient Tobacco Use Status: Current everyday Tobacco user Tobacco use type: Cigarette Cigarette Packs Per Day: 1 Cigarettes Per Day: 20.0 Years Smoked: 45 e-Cigarette/Vaping Use: Never Used Second Hand Smoke Exposure: Yes Substance Use Type: Marijuana Advance Directives Date on File: 02/01/21 service: No Current occupational status: disabled Current occupation: right handed Cognitive needs: No Hearing needs: No Vision needs: Yes (glasses) Review of Systems Const All systems reviewed & are unremarkable except as noted in HPI and below Physical Exam Const General: cooperative, healthy appearing, comfortable, no acute distress and well developed Orientation/consciousness: patient oriented x3 Limitations: no limitations HEENT Head: Yes normal to inspection Ears: hearing grossly normal bilaterally General nose exam: Normal external nose present Face and sinus: Yes normal facial exam Eyes General: appearance normal, both eyes and all related structures Neck Neck: Yes normal visual inspection and Yes full ROM Resp Effort & Inspection: normal respiratory effort and able to speak in complete sentences Skin Other: Inspection of the gluteal region- 1cm indurated cyst in the gluteal cleft, without signs of drainage at present. No active discharge observed. no warmth. Neuro General: patient oriented x3 Extrem General: Yes normal to inspection Assessment & Plan Assessment & Plan (1) Pilonidal cyst with abscess: Code(s): L05.01 - Pilonidal cyst with abscess Plan: For the treatment of the recurrent pilonidal cyst with current induration, initiation of Keflex for 7 days. I & D intervention is not advisable at this time given the cyst's indurated nature and absence of adequate drainage capacity. The patient will be instructed on the importance of completing the antibiotic course and advised to return for further assessment if symptoms do not improve or if complications arise. Follow-up with primary care and general surgery may be considered for managing recurrent cases. Patient was informed and verbally consented to the use of an ambient scribe for clinic note documentation during this visit. Medications: New cephalexin 500 mg PO Q6H 28 caps 0RF Coding Level of Care Code Est Pt Level 3 (92080) Diagnoses Pilonidal cyst with abscess L05.01
[2024-08-05 09:39] VITALS: BP 122/80; PULSE 98; O2SAT 97
== END 2024-08-05 11:35 | disposition home or self-care (01) ==
PROVIDERS: PCP Internal Medicine; Visit Provider Physician Assistant
DX: L05.01 Pilonidal cyst with abscess (principal)

== ENCOUNTER → 2024-08-05 09:14 | Outpatient (BNVA) | payer OTHER, SELFPAY | PROVIDERS: PCP Internal Medicine; Visit Provider Physician Assistant | DX: L05.01 Pilonidal cyst with abscess (principal) | CPT/HCPCS: 99212 ==

== ENCOUNTER 2024-08-12 08:02 | Outpatient (AMB) | payer OTHER, SELFPAY ==
[2024-08-12 08:27] VITALS: BP 140/90; PULSE 85; TEMP 36.1; O2SAT 96; BMI 32.0
--- NOTE | 2024-08-12 08:27 | AM.OFFWIN_ITS ---
Intake Vital Signs 08/12/24 08:27 Height 5 ft 8 in Weight 210 lb 8 oz BMI 32.0 BP 140/90 H Blood Pressure Location Lt brachial Position Sitting Pulse 85 Pulse Source Pulse Oximeter Temp 97.0 F Temp Source Temporal Artery Scan Pulse Oximetry (%) 96 Oxygen Delivery Method Room Air Intake Visit Reasons: EP laryngitis? Intake Note: Pt presents to the office today for laryngitis x4 days. Pt states he does not have a sore throat. Pt also states his ears feel clogged and feels like they are full of water. Patient Tobacco Use Status: Current everyday Tobacco user Allergies gabapentin Adverse Reaction (Intermediate, Verified 08/12/24 08:29) dizziness HPI EP laryngitis? HPI Details This note is constructed using voice recognition software. While every effort has been made to ensure accuracy, electrocardiograph operator errors may have been included. The patient is a 58 year old male who presents to the clinic today with c/o laryngitis for the past 4 days with ear pressure. He reports a history of allergies this time of year every year when we have to turn the heat on, but typically does not treat it. He reports that he has not taken anything other than Robitussin to help the symptoms. He denies fever, chills, shortness of breath, mucus production. He does report that his girlfriend had RSV 2 weeks ago and he developed symptoms after she resolved. Of note he is on his last day of antibiotics for a pilonidal cyst. [facility] Medical History (Updated 08/05/24 @ 09:52 by Ella Templeton PA-C) Chronic pain syndrome Nicotine dependence, cigarettes, uncomplicated COPD (chronic obstructive pulmonary disease) Insomnia Sleep disorder Obstructive sleep apnea PAF (paroxysmal atrial fibrillation) Essential (primary) hypertension Opioid dependence with unspecified opioid-induced disorder Peripheral vascular disease due to secondary diabetes Vitamin D deficiency Type 2 diabetes mellitus without complications Surgical History History of colonoscopy (~04/30/23) History of incisional hernia repair History of inguinal hernia repair History of colostomy History of colostomy reversal History of dental surgery History of hernia repair Family History Father No problems noted. Mother Lung cancer, Onset Age: 48 Brother No problems noted. Brother No problems noted. Brother No problems noted. Sister No problems noted. Social History Household Members: Spouse Housing: Apartment Are you a primary small animal caretaker to a significant other at home: No Do you presently have visiting nurse or other home services: No Alcohol intake: never Comment: with patient at present Patient Tobacco Use Status: Current everyday Tobacco user Tobacco use type: Cigarette Cigarette Packs Per Day: 1 Cigarettes Per Day: 20.0 Years Smoked: 45 e-Cigarette/Vaping Use: Never Used Second Hand Smoke Exposure: Yes Substance Use Type: Marijuana Advance Directives Date on File: 02/01/21 service: No Current occupational status: disabled Current occupation: right handed Cognitive needs: No Hearing needs: No Vision needs: Yes (glasses) Review of Systems Const All systems reviewed & are unremarkable except as noted in HPI and below Physical Exam Vital Signs: Last Vital Signs Temp 97.0 F 08/12/24 08:27 Pulse 85 08/12/24 08:27 BP 140/90 H 08/12/24 08:27 Pulse Ox 96 08/12/24 08:27 Oxygen Delivery Method Room Air 08/12/24 08:27 BMI result Body Mass Index 32.0 Const Other: Hoarse voice General: cooperative, healthy appearing, comfortable and no acute distress Orientation/consciousness: patient oriented x3 Limitations: no limitations HEENT Head: Yes normal to inspection Ears: hearing grossly normal bilaterally, external ears normal and TM abnormal retracted General nose exam: Normal external nose present, No nasal discharge present and Abnormal mucous membranes and turbinates present boggy and pale Face and sinus: Yes normal facial exam and Yes sinuses nontender Mouth: Normal oral and palatal mucosa present and moist mucous membranes Throat: Yes tonsils normal, Yes uvula midline, Yes posterior oropharynx abnormal (Erythema), Yes postnasal drainage and Yes cobblestoning Eyes General: appearance normal, both eyes and all related structures Neck Neck: Yes normal visual inspection Resp Effort & Inspection: normal respiratory effort, able to speak in complete sentences, Actively coughing, no respiratory distress, not tachypneic, no tripod positioning and no use of accessory muscles Auscultation: clear to auscultation bilaterally Cardio Rate: regular rate Rhythm: regular rhythm Heart sounds: normal S1 and S2 Skin General skin exam: no rashes or lesions noted Neuro General: patient oriented x3 Extrem General: Yes normal to inspection and Yes no clubbing, cyanosis or edema Assessment & Plan Assessment & Plan (1) Allergic rhinitis: Code(s): J30.9 - Allergic rhinitis, unspecified Qualifiers: Allergic rhinitis trigger: unspecified Allergic rhinitis seasonality: unspecified Qualified Code(s): J30.9 - Allergic rhinitis, unspecified Plan: Supportive measures encouraged and reviewed. Advised patient to try a Flonase nasal spray and second-generation antihistamine such as Zyrtec, Claritin, Bernie or similar. Advised consideration of sinus rinse if needed. Advised patient to follow up with primary care provider with worsening or failure to resolve. Plan See above for full details and plan. Coding Level of Care Code Est Pt Level 3 (02992) Diagnoses Allergic rhinitis, unspecified seasonality, unspecified trigger J30.9 Allergic rhinitis trigger: unspecified Allergic rhinitis seasonality: unspecified
== END 2024-08-12 09:34 | disposition home or self-care (01) ==
PROVIDERS: PCP Internal Medicine; Visit Provider Registered Nurse
DX: J30.9 Allergic rhinitis, unspecified (principal)

== ENCOUNTER → 2024-08-12 08:02 | Outpatient (BNVA) | payer OTHER, SELFPAY | PROVIDERS: PCP Internal Medicine; Visit Provider Registered Nurse | DX: J30.9 Allergic rhinitis, unspecified (principal) | CPT/HCPCS: 99212 ==

== ENCOUNTER 2024-08-13 07:48 | Outpatient (REF) | payer OTHER, SELFPAY | END 2024-08-13 07:49 | disposition home or self-care (01) | LOC: HO.CT 07:48 | PROVIDERS: PCP Internal Medicine; Visit Provider Physician Assistant Medical | DX: Z12.2 Encounter for screening for malignant neoplasm of respiratory organs (principal); F17.210 Nicotine dependence, cigarettes, uncomplicated | CPT/HCPCS: 71271 ==

== ENCOUNTER 2024-10-15 09:12 | Outpatient (AMB) | payer OTHER, SELFPAY ==
[2024-10-15 09:23] VITALS: BP 130/84; PULSE 91; O2SAT 93; BMI 31.5
--- NOTE | 2024-10-15 09:23 | MHC.OFFVIS ---
Vital Signs 10/15/24 09:23 Height 5 ft 8 in Weight 207 lb BMI 31.5 BP 130/84 Pulse 91 Pulse Source Pulse Oximeter Pulse Oximetry (%) 93 Oxygen Delivery Method Room Air Intake Visit Reasons: Obstructive sleep apnea Intake Note: pt is here for follow up and states he is in a lot of pain, and states his breathing is good, no issues. 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 Required: No Allergies gabapentin Adverse Reaction (Intermediate, Verified 10/15/24 09:33) dizziness Medication List - Last Reconciled 10/15/24 by Gerber Naik MD albuterol sulfate 90 mcg/actuation 2 puffs inhalation Q4-6H PRN apixaban (Eliquis) 5 mg PO BID buprenorphine-naloxone 4-1 mg (Suboxone) 1 film buccal Q24H cholecalciferol (vitamin D3) (Vitamin D3) 2,000 units PO DAILY diltiazem HCl CD 120 mg PO DAILY 90 days dronedarone (Multaq) 400 mg PO BID empagliflozin (Jardiance) 25 mg PO DAILY metformin 1,000 mg PO BID polyethylene glycol 3350 (Gavilax) 17 grams PO DAILY rosuvastatin 40 mg PO DAILY Do you need a note to return to daycare/school/sports/work: No HPI HPI Obstructive sleep apnea: Details: THIS 58 YEARS OLD GENTLEMAN IS HERE FOR HIS YEARLY VISIT. CONTINUES TO SMOKE, AND SAY IS THAT HE HAS REDUCED TO ABOUT 15 CIGARETTES A DAY. DOES HAVE MILD INTERMITTENT COUGH USUALLY AFTER SMOKING. BUT DENIES SHORTNESS OF BREATH OR WHEEZING ATTACKS. HE HAS HAD NO ACUTE RESPIRATORY ISSUES DURING THE YEAR. HIS MAIN COMPLAINT IS LOT OF ABDOMINAL PAIN ESPECIALLY AT NIGHT, THIS IS DUE TO HIS CHRONIC DIVERTICULAR DISEASE. IT SHOULD BE NOTED THAT THIS GENTLEMAN IS ON SUBOXONE THERAPY, . FOR THIS CHRONIC PAIN PATIENT SAY IS THAT HE SLEEPS WELL MOSTLY IN LATERAL POSITION AND ALSO HAS SOME HOURS OF SLEEP DURING DAYTIME. FORMERLY [facility] Medical History Chronic pain syndrome Nicotine dependence, cigarettes, uncomplicated COPD (chronic obstructive pulmonary disease) Insomnia Sleep disorder Obstructive sleep apnea PAF (paroxysmal atrial fibrillation) Essential (primary) hypertension Opioid dependence with unspecified opioid-induced disorder Peripheral vascular disease due to secondary diabetes Vitamin D deficiency Type 2 diabetes mellitus without complications Surgical History History of colonoscopy (~04/30/23) History of incisional hernia repair History of inguinal hernia repair History of colostomy History of colostomy reversal History of dental surgery History of hernia repair Family History Father No problems noted. Mother Lung cancer, Onset Age: 48 Brother No problems noted. Brother No problems noted. Brother No problems noted. Sister No problems noted. Social History Household Members: Spouse Housing: Apartment Are you a primary care technician to a significant other at home: No Do you presently have visiting nurse or other home services: No Alcohol intake: never Comment: with patient at present Patient Tobacco Use Status: Current everyday Tobacco user Tobacco use type: Cigarette Cigarette Packs Per Day: 1 Cigarettes Per Day: 20.0 Years Smoked: 45 e-Cigarette/Vaping Use: Never Used Second Hand Smoke Exposure: Yes Substance Use Type: Marijuana Advance Directives Date on File: 02/01/21 service: No Current occupational status: disabled Current occupation: right handed Cognitive needs: No Hearing needs: No Vision needs: Yes (glasses) Review of Systems Const All systems reviewed & are unremarkable except as noted in HPI and below Eyes Reports no additional complaints ENT Reports no additional complaints Card Denies chest pain and Denies leg edema Resp Reports no additional complaints GI Reports abdominal pain (chronic ) Reports no additional complaints Musc Reports back pain Skin/Breast Reports system reviewed and no additional complaints, except as documented Neuro Reports no additional complaints Psych Reports no additional complaints Physical Exam Vital Signs: Last Vital Signs Pulse 91 10/15/24 09:23 BP 130/84 10/15/24 09:23 Pulse Ox 93 10/15/24 09:23 Oxygen Delivery Method Room Air 10/15/24 09:23 BMI result Body Mass Index 31.5 Const General: comfortable, no acute distress, alert and awake Orientation/consciousness: patient oriented x3 HEENT Head: Yes normal to inspection General nose exam: No nasal polyps present and No nasal discharge present Face and sinus: Yes sinuses nontender Mouth: oropharynx normal Throat: Yes posterior oropharynx normal Eyes General: appearance normal, both eyes and all related structures Neck Neck: Yes normal visual inspection, Yes no lymphadenopathy, Yes trachea midline and Yes no JVD Thyroid: Thyroid normal Chest Chest palpation & inspection: normal inspection of the chest, normal palpation of entire chest wall and no tenderness Resp Effort & Inspection: normal respiratory effort Auscultation: clear to auscultation bilaterally, no crackles, no rhonchi and no wheezes Percussion: percussion normal Cardio Palpation: normal PMI Rate: regular rate Rhythm: regular rhythm Heart sounds: no gallops and no murmurs Peripheral pulses: Peripheral pulses 2+ throughout GI Other: Abdomen is protuberant, extensive surgical scars from previous abdominal surgeries. The whole abdomen is somewhat sensitive to touch. Bowel sounds are normal. Palpation (GI): Soft to palpation, Tenderness to palpation present (GI), No hepatosplenomegaly present and Palpable mass present Auscultation: normal bowel sounds Back/Spine/Pelvis Thoracic/Lumbar Spine: thoracic and lumbar spine normal to inspection and thoraco-lumbar ROM limited Skin General skin exam: no rashes or lesions noted Neuro General: patient oriented x3 and no focal motor deficits Cranial nerves: Yes CN's II-XII intact bilaterally Extrem General: Yes normal to inspection, Yes no clubbing, cyanosis or edema and Yes no calf tenderness Psych Speech and movement: Normal speech and movement present Results Reviewed Results Reviewed: SPIROMETRY 10/29/23 FVC=91 % FEV1= 80 % FEV1/FVC= 69 FEF 25-75 = 62 % , 113 , 89 61 44 LDCT SCAN OF CHEST ASSESSMENT: 08/13/24 1. Lung-RADS Category 1: Negative. There are no nodules or there are definitely benign nodules. 2. Lung-RADS Category S: Negative. There are no clinically significant or potentially clinically significant findings not related to the lungs requiring urgent additional evaluation. RECOMMENDATION: Continued routine annual low-dose CT lung screening in 1 year is recommended. Assessment & Plan Assessment & Plan (1) Nicotine dependence, cigarettes, uncomplicated: Comment: (Current smoker, onset 11yo , 1ppd x 45, 45pyh, + fam hx) say is that he has cut down to about 15 cigarettes a day, but can not stop altogether. Code(s): F17.210 - Nicotine dependence, cigarettes, uncomplicated Category: Medical Plan: Again counseled about quitting, at least cut down the number of cigarettes to 10 a day. (2) COPD (chronic obstructive pulmonary disease): Comment: (Chronic Smoker, Mild GAYTAN -stable. As per pulmonary function test. ( SPIROMETRY ) there is slight increase in the obstructive disorder. FEF 25-75 down to 44% Code(s): J44.9 - Chronic obstructive pulmonary disease, unspecified Category: Medical Plan: Albuterol HFA 2 puffs Q 4-6 hours p.r.n. He say is that he ends up using albuterol about 2 to 3 times a week. (3) Obstructive sleep apnea: Comment: (Mild IAN - TST AHI OF 7.4, Supine AHI 12.5, Prone AHI 88, Lateral AHI 5.9) ORDINARILY, MILD OBSTRUCTIVE SLEEP APNEA DOES NOT NEED CPAP THERAPY, AND CAN BE TREATED WITH CONSERVATIVE MEASURES. IN HIS CASE , WITH A HISTORY OF THE PAROXYSMAL ATRIAL FIBRILLATION HE MAY BE CANDIDATE FOR CPAP THERAPY. *HOWEVER HE DOES NOT WANT TO START USING CPAP. HE CLAIMS THAT HE DOES GET ABOUT 7-8 HOURS OF SLEEP, HIS SLEEP IS MAINLY INTERRUPTED BY PAIN, SO HE SLEEPS ABOUT 4 HOURS AT NIGHT AND ABOUT 4 HOURS DURING THE DAYTIME. Code(s): G47.33 - Obstructive sleep apnea (adult) (pediatric) Category: Medical Plan: JUST READ IN FORCED THAT HE SHOULD TRY TO SLEEP IN LATERAL POSITION, AND GET ABOUT 7-8 HOURS SLEEP DAILY. Coding Level of Care Code Est Pt Level 3 (42594) Diagnoses Nicotine dependence, cigarettes, uncomplicated F17.210 COPD (chronic obstructive pulmonary disease) J44.9 Obstructive sleep apnea G47.33
== END 2024-10-15 09:49 | disposition home or self-care (01) ==
PROVIDERS: PCP Internal Medicine; Visit Provider Internal Medicine
DX: F17.210 Nicotine dependence, cigarettes, uncomplicated (principal); J44.9 Chronic obstructive pulmonary disease, unspecified; G47.33 Obstructive sleep apnea (adult) (pediatric)
CPT/HCPCS: 99213

== ENCOUNTER → 2024-10-15 09:12 | Outpatient (BNVA) | payer OTHER, SELFPAY | PROVIDERS: PCP Internal Medicine; Visit Provider Internal Medicine | DX: G47.33 Obstructive sleep apnea (adult) (pediatric) (principal); J44.9 Chronic obstructive pulmonary disease, unspecified; F17.210 Nicotine dependence, cigarettes, uncomplicated | CPT/HCPCS: 99212 ==

== ENCOUNTER 2024-11-05 08:32 | Outpatient (AMB) | payer OTHER, SELFPAY ==
--- NOTE | 2024-11-05 08:43 | A.OFFPC_ITS ---
Vital Signs 11/05/24 08:45 Height 5 ft 8 in Weight 205 lb 2 oz BMI 31.2 BP 140/72 H Blood Pressure Location Lt brachial Position Sitting Pulse 90 Pulse Source Pulse Oximeter Temp 97.1 F Temp Source Temporal Artery Scan Pulse Oximetry (%) 97 Oxygen Delivery Method Room Air Intake Visit Reasons: 3 month f/u Intake Note: Patient is here to follow up on DM, Chronic pain. Trial Manager Required: No Walking Dragline Oiler: Not Required per policy Accompanied by: Self / Same As Patient Allergies gabapentin Adverse Reaction (Intermediate, Verified 11/05/24 08:44) dizziness Tobacco use date assessed: 11/05/24 Dental Screening Dental Screen Date: 11/05/24 Did you have a dental visit in the last 12 months?: No Did you have a dental problem in the last 6 months where you did not have access to dental care?: No Was dental information given to patient?: No [facility] Medical History (Updated 10/15/24 @ 09:53 by Gerber Naik MD) Chronic pain syndrome Nicotine dependence, cigarettes, uncomplicated COPD (chronic obstructive pulmonary disease) Insomnia Sleep disorder Obstructive sleep apnea PAF (paroxysmal atrial fibrillation) Essential (primary) hypertension Opioid dependence with unspecified opioid-induced disorder Peripheral vascular disease due to secondary diabetes Vitamin D deficiency Type 2 diabetes mellitus without complications Surgical History History of colonoscopy with polypectomy (04/30/23) History of colonoscopy (~04/30/23) History of incisional hernia repair History of inguinal hernia repair History of colostomy History of colostomy reversal History of dental surgery History of hernia repair Family History Father No problems noted. Mother Lung cancer, Onset Age: 48 Brother No problems noted. Brother No problems noted. Brother No problems noted. Sister No problems noted. Social History Household Members: Spouse Housing: Apartment Are you a primary childbirth and infant care teacher to a significant other at home: No Do you presently have visiting nurse or other home services: No Alcohol intake: never Comment: with patient at present Patient Tobacco Use Status: Current everyday Tobacco user Tobacco use type: Cigarette Cigarette Packs Per Day: 1 Cigarettes Per Day: 20.0 Years Smoked: 45 e-Cigarette/Vaping Use: Never Used Second Hand Smoke Exposure: Yes Substance Use Type: Marijuana Advance Directives Date on File: 02/01/21 service: No Current occupational status: disabled Current occupation: right handed Cognitive needs: No Hearing needs: No Vision needs: Yes (glasses) Questionnaire PHQ-9 Over the last 2 weeks, how often have you been bothered by any of the following problems? 1. Little interest or pleasure in doing things: not at all 2. Feeling down, depressed, or hopeless: not at all 3. Trouble falling or staying asleep, or sleeping too much: not at all 4. Feeling tired or having little energy: not at all 5. Poor appetite or overeating: not at all 6. Feeling bad about yourself - or that you are a failure or have let yourself or your family down: not at all 7. Trouble concentrating on things, such as reading the newspaper or watching television: not at all 8. Moving or speaking so slowly that other people could have noticed. Or the opposite - being so fidgety or restless that you have been moving around a lot more than usual: not at all 9. Thoughts that you would be better off or of hurting yourself in some way: not at all Total score: 0 Depression Screening Interpretation: Negative Depression Screening Done: Yes Source: Developed by Drs. Vic Ragsdale, Carmencita Joshua, Joce Boswell and colleagues, with an educational aleja from [employer]. Thrive Questionnaire Date Thrive assessed: 11/05/24 I am a: Patient What is your living situation today?: I have a steady place to live Within the past 12 months, did the food you bought not last and you didn't have the money to get more?: Never true Within the past 12 months, did you worry whether your food would run out before you got money to buy more?: Never true Do you have trouble paying for medicines?: No Do you have trouble getting transportation to medical appointments?: No Do you have trouble paying your heating and electricity bill?: No Do you have trouble taking care of your child, family member or friend?: No Do you have trouble with day-to-day activities such as bathing, preparing meals, shopping, managing finances, etc.?: No Are you currently unemployed and looking for a job?: No Are you interested in more education?: No Please select the resources that you would like help with: None Currently or been in a relationship where the following occur: No concerns reported THRIVE Score: 0 AUDIT C Alcohol Use Questionnaire (AUDIT-C) 1. How often do you have a drink containing alcohol?: Never Total Score: 0 WANDER-7 AMB Questionnaire WANDER-7 Date WANDER - 7 assessed: 11/05/24 Feeling nervous, anxious, or on edge: 0 = Not at all Not being able to stop or control worryin = Not at all Worrying too much about different things: 0 = Not at all Trouble relaxin = Not at all Being so restless that it is hard to sit still: 0 = Not at all Becoming easily annoyed or irritable: 0 = Not at all Feeling afraid as if something awful might happen: 0 = Not at all Total WANDER-7 score (0-4 normal; 5-9 mild; 10-14 moderate; 15-21 severe): 0 Source: Developed by Drs. Vic Ragsdale, Carmencita Joshua, Joce Boswell and colleagues, with an educational aleja from [employer]. Physical exam (Primary Care) Vital Signs: Last Vital Signs Temp 97.1 F 11/05/24 08:45 Pulse 90 11/05/24 08:45 BP 140/72 H 11/05/24 08:45 Pulse Ox 97 11/05/24 08:45 Oxygen Delivery Method Room Air 11/05/24 08:45 BMI result Body Mass Index 31.2 Tobacco/Smoking Status: Tobacco use Status Tobacco use date assessed 11/05/24 11/05/24 08:53 Patient Tobacco Use Status Current everyday Tobacco 11/05/24 08:53 Tobacco use type Cigarette 11/05/24 08:53 e-Cigarette/Vaping Use Never Used 11/05/24 08:53 PHQ-9: PHQ-9 Score PHQ-9: Total score 0 11/05/24 09:32 Depression Screening Interpretation: Negative Thrive Assessment: Date of Thrive Assessment Date Thrive assessed 11/05/24 11/05/24 08:53 Currently or been in a relationship where the following occur: No concerns repor luciano Office Procedures EKG [id number], Complete Results AMB Hemoglobin A1c AMB Hemoglobin A1c 7.7 % Last Edit by PACO Malcolm on 11/05/24 08:59 Results Reviewed Results Reviewed: Laboratory Last Values Hgb A1c (Clinic) 7.7 % (4.0-6.0) H 11/05/24 08:42 Coding Level of Care Code Est Pt Level 4 (92863) Complex EM visit Add On G2211 Diagnoses PAF (paroxysmal atrial fibrillation) I48.0 Type 2 diabetes mellitus without complication, without long-term current use of insulin E11.9 Diabetes mellitus termination clerk insulin use: without termination clerk use Peripheral vascular disease due to secondary diabetes E13.51 Opioid dependence with unspecified opioid-induced disorder F11.29 Chronic pain syndrome G89.4 CPT Codes EKG - CPT: 53182-[id number], Complete ([id number]) Assessment & Plan Assessment & Plan (1) PAF (paroxysmal atrial fibrillation): Code(s): I48.0 - Paroxysmal atrial fibrillation Category: Medical Plan: EKG done today shows normal sinus rhythm. Patient was reassured. Continue Multaq. (2) Type 2 diabetes mellitus without complications: Code(s): E11.9 - Type 2 diabetes mellitus without complications Category: Medical Qualifiers: Diabetes mellitus termination clerk insulin use: without senior living use Qu alified Code(s): E11.9 - Type 2 diabetes mellitus without complications Plan: A1c is increased. Patient reluctant to start any new medications. We will control his diet better. Trulicity was offered and patient declined. (3) Peripheral vascular disease due to secondary diabetes: Code(s): E13.51 - Other specified diabetes mellitus with diabetic peripheral angiopathy without gangrene Category: Medical Plan: Condition is stable. (4) Opioid dependence with unspecified opioid-induced disorder: Code(s): F11.29 - Opioid dependence with unspecified opioid-induced disorder Category: Medical Plan: Patient is on Suboxone. (5) Chronic pain syndrome: Code(s): G89.4 - Chronic pain syndrome Category: Medical Plan: Patient is taking Suboxone for pain. Plan History of Present Illness The patient is a 59-year-old male presenting with elevated blood glucose levels. He reports adherence to his diabetes medication regimen taken in the morning and evening. Despite this adherence, his HbA1c has increased to 7.7%. The patient as sociates this rise with dietary choices, notably increased consumption of sugared coffee. He regularly checks blood glucose levels postprandially, which have been approximately 160 mg/dL. Moreover, the patient is concerned about potential atrial fibrillation, as he experiences sensations similar to previous episodes. He describes a clammy feeling along with significant discomfort, necessitating further investigation with an electrocardiogram. Patient continues to have chronic pain. Compliant with medications Social History - Reports consistent adherence to his medication regimen. - Mentions dietary habits, including increased coffee consumption with sugar. - Regularly engages in personal glucose monitoring. Review of Systems - Cardiovascular: Reports feeling clammy and experiencing pain. Physical Exam General: Cooperative and healthy appearing Nutritional Appearance: Well nourished Orientation/consciousness: Patient oriented x3 Limitations: No limitations Head: Normal to inspection General: Appearance normal, both eyes and all related structures Neck: Normal visual inspection Chest: Normal palpation of entire chest wall Respiratory: Normal respiratory effort Neurology: Patient oriented x3 Results - Labs: HbA1c elevated to 7.7%. - Tests: Awaiting results of an electrocardiogram to evaluate for atrial fibrillation. Plan The patient will aim to improve blood glucose control by modifying dietary habits, specifically reducing sugar in his coffee consumption. If necessary, transitioning to a weekly injectable antidiabetic medication should be considered should dietary changes prove insufficient. A confirmation electrocardiogram is to be conducted to assess for atrial fibrillation following his reported symptoms. Additionally, a prescription for Galvilax powder has been renewed as per the patient's request. Patient was informed and verbally consented to the use of an ambient scribe for clinic note documentation during this visit. Discussion Notes I discussed with the patient the increase in his HbA1c levels and the potential contributing factors, including diet. I acknowledged the patient's compliance with medication and suggested dietary modifications as a first step in glucose management. We talked about the option of adding a weekly injectable for diabetes if necessary. Regarding possible atrial fibrillation, I explained the importance of obtaining an EKG to assess his symptoms further. I assured him that we would address any findings upon results. The prescription for Galvilax powder has been renewed, and the patient was informed accordingly. Patient Instructions - Monitor blood glucose levels regularly and record them. - Reduce sugar in coffee and consider any other dietary changes to help control blood glucose levels. - Prepare for an EKG to evaluate for potential atrial fibrillation. - Follow up as needed regarding the prescription for Galvilax powder. - Report any increased symptoms or concerns immediately. Orders: Orders Basic Metabolic Panel Today E11.9 - Type 2 diabetes mellitus without complic ations Lipid Panel Today E11.9 - Type 2 diabetes mellitus without complications Liver Panel Today E11.9 - Type 2 diabetes mellitus without complications Thyroid Stimulating Hormone Today E11.9 - Type 2 diabetes mellitus without complications Complete Blood Count no Diff Today E11.9 - Type 2 diabetes mellitus without complications UA and rflx microscopic Today E11.9 - Type 2 diabetes mellitus without complications Microalbumin, Random (w Creat) Today E11.9 - Type 2 diabetes mellitus without complications AMB EKG-In Office Today I48.0 - Paroxysmal atrial fibrillation AMB Hemoglobin A1c Today E11.9 - Type 2 diabetes mellitus without complications Medications: Refilled polyethylene glycol 3350 (Gavilax) 17 grams PO DAILY 510 grams 2RF
[2024-11-05 08:45] VITALS: BP 140/72; PULSE 90; TEMP 36.2; O2SAT 97; BMI 31.2
== END 2024-11-05 09:49 | disposition home or self-care (01) ==
PROVIDERS: PCP Internal Medicine; Visit Provider Internal Medicine
DX: I48.0 Paroxysmal atrial fibrillation (principal); E13.51 Other specified diabetes mellitus with diabetic peripheral angiopathy without gangrene; F11.29 Opioid dependence with unspecified opioid-induced disorder; G89.4 Chronic pain syndrome

== ENCOUNTER → 2024-11-05 08:32 | Outpatient (BNVA) | payer OTHER, SELFPAY | PROVIDERS: PCP Internal Medicine; Visit Provider Internal Medicine | DX: I48.0 Paroxysmal atrial fibrillation (principal); E13.51 Other specified diabetes mellitus with diabetic peripheral angiopathy without gangrene; F11.29 Opioid dependence with unspecified opioid-induced disorder; G89.4 Chronic pain syndrome | CPT/HCPCS: 83036; 93005; 99212 ==

== ENCOUNTER 2024-11-09 06:08 | Outpatient (REF) | payer OTHER, SELFPAY ==
[2024-11-09 07:27] LABS: Appearance Urine Clear; Color Urine Yellow; Glucose Urine UA >=1000 mg/dL (Negative); Leukocyte Esterase Urine Negative (Negative); Nitrite Urine Negative (Negative); PH 5.5 (5.0-9.0); Specific Gravity - Urine >= 1.030 (1.005-1.025); UMIC TRIGGER UA YES; Urine Blood Negative (Negative); Urine Ketones Negative (Negative); Urine Protein 100 (2+) mg/dL (Neg-Trace)
[2024-11-09 07:29] LABS: Bacteria Urine None Seen (None Seen); RBC Urine 0-2 /HPF (0-2); Squamous Epithelial Cell Urine 0-2 /HPF (0-2); WBC Urine 0-5 /HPF (0-5)
[2024-11-09 07:39] LABS: Hematocrit 48.2 % (42.0-52.0); Hemoglobin 16.3 g/dl (14.0-18.0); Mean Corpuscular HGB Conc 33.8 g/dl (31.0-36.0); Mean Corpuscular Hemoglobin 28.4 pg (27.0-33.0); Mean Corpuscular Volume 84.1 fL (80.0-98.0); Mean Platelet Volume 9.8 fL (9.4-12.4); Platelet Count 251 X10*3/uL (160-400); Red Blood Count 5.73 X10*6/uL (4.60-5.80); Red Cell Distribution Width 14.9 % (11.0-16.0); White Blood Count 11.1 X10*3/uL (4.8-10.8)
[2024-11-09 08:14] LABS: Alanine Aminotransferase 21 U/L (0-40); Albumin Level 4.5 g/dL (3.5-5.0); Alkaline Phosphatase 70 U/L (39-117); Anion Gap 15 (12-20); Aspartate Amino Transferase 28 U/L (5-37); Bilirubin Direct 0.2 mg/dL (0.0-0.5); Bilirubin Total 0.7 mg/dL (0.0-1.0); Blood Urea Nitrogen 16 mg/dL (9-16); Calcium 9.4 mg/dL (8.4-10.2); Carbon Dioxide 23 mmol/L (22-29); Chloride 106 mmol/L (96-108); Cholesterol 94 mg/dL (<200); Estimated Glomerular Filt Rate > 60; Glucose Random 143 mg/dL (60-115); HDL Cholesterol 35 mg/dL (>40); LDL Cholesterol Calculated 9 mg/dL (<100); Potassium 4.1 mmol/L (3.3-5.1); Sodium 140 mmol/L (135-145); Total Protein 8.1 g/dL (6.5-8.0); Triglycerides 253 mg/dL (<150)
[2024-11-09 08:21] LABS: Creatinine Urine 87.38 mg/dL; Microalbum/Creatinine Ratio Ur 369.6 ug/mg cr (<30)
[2024-11-09 08:30] LABS: Thyroid Stimulating Hormone 1.25 uIU/mL (0.32-4.0)
== END 2024-11-09 06:09 | disposition home or self-care (01) ==
LOC: HO.LAB 06:08
PROVIDERS: PCP Internal Medicine; Visit Provider Internal Medicine
DX: E11.9 Type 2 diabetes mellitus without complications (principal)
CPT/HCPCS: 36415; 80048; 80061; 80076; 81001; 82043; 82570; 84443; 85027

== ENCOUNTER 2024-11-26 08:00 | Outpatient (AMB) | payer OTHER, SELFPAY ==
[2024-11-26 08:14] VITALS: BP 132/70; PULSE 77; BMI 31.5
--- NOTE | 2024-11-26 08:14 | A.OFFVIS_ITS ---
Vital Signs 11/26/24 08:14 Height 5 ft 8 in Weight 207 lb 3.752 oz BMI 31.5 BP 132/70 Blood Pressure Location Lt brachial Position Sitting Pulse 77 Intake Visit Reasons: 6 mth f/up [employer] Advisor Required: No Accompanied by: Self / Same As Patient Allergies gabapentin Adverse Reaction (Intermediate, Verified 11/05/24 08:44) dizziness Medication List - Last Reconciled 11/26/24 by Pascual Garcia MD albuterol sulfate 90 mcg/actuation 2 puffs inhalation Q4-6H PRN apixaban (Eliquis) 5 mg PO BID buprenorphine-naloxone 4-1 mg (Suboxone) 1 film buccal Q24H cholecalciferol (vitamin D3) (Vitamin D3) 2,000 units PO DAILY diltiazem HCl CD 120 mg PO DAILY dronedarone (Multaq) 400 mg PO BID empagliflozin (Jardiance) 25 mg PO DAILY metformin 1,000 mg PO BID polyethylene glycol 3350 (Gavilax) 17 grams PO DAILY rosuvastatin 40 mg PO DAILY HPI Comments Details: Bran returns for follow-up regarding atrial fibrillation. He remains on a combination of diltiazem and Multaq. No clear-cut symptoms like angina or shortness of breath. He thinks he might have had one episode of palpitations but very brief and no recurrence. Otherwise, no definitive cardiac concerns. Takes all his medications. However, still smokes. [facility] Medical History (Updated 10/15/24 @ 09:53 by Gerber Naik MD) Chronic pain syndrome Nicotine dependence, cigarettes, uncomplicated COPD (chronic obstructive pulmonary disease) Insomnia Sleep disorder Obstructive sleep apnea PAF (paroxysmal atrial fibrillation) Essential (primary) hypertension Opioid dependence with unspecified opioid-induced disorder Peripheral vascular disease due to secondary diabetes Vitamin D deficiency Type 2 diabetes mellitus without complications Surgical History History of colonoscopy with polypectomy (04/30/23) History of colonoscopy (~04/30/23) History of incisional hernia repair History of inguinal hernia repair History of colostomy History of colostomy reversal History of dental surgery History of hernia repair Family History Father No problems noted. Mother Lung cancer, Onset Age: 48 Brother No problems noted. Brother No problems noted. Brother No problems noted. Sister No problems noted. Social History Household Members: Spouse Housing: Apartment Are you a primary lawn care professional to a significant other at home: No Do you presently have visiting nurse or other home services: No Alcohol intake: never Comment: with patient at present Patient Tobacco Use Status: Current everyday Tobacco user Tobacco use type: Cigarette Cigarette Packs Per Day: 1 Cigarettes Per Day: 20.0 Years Smoked: 45 e-Cigarette/Vaping Use: Never Used Second Hand Smoke Exposure: Yes Substance Use Type: Marijuana Advance Directives Date on File: 02/01/21 service: No Current occupational status: disabled Current occupation: right handed Cognitive needs: No Hearing needs: No Vision needs: Yes (glasses) Review of Systems Const Denies chills, Denies fatigue, Denies fever(s), Denies weight gain and Denies weight loss ENT Denies dizziness Card Denies chest pain, Denies leg edema, Denies lightheadedness, Denies palpitations, Denies dyspnea on exertion, Denies orthopnea and Denies other Resp Denies cough and Denies dyspnea on exertion GI Denies hematochezia and Denies change in stool character Musc Denies abnormal gait, Denies muscle weakness, Denies numbness, Denies radiating pain into limb and Denies tingling Neuro Denies abnormal gait, Denies dizziness, Denies numbness and Denies tingling Endo Denies fatigue and Denies palpitations Physical Exam Vital Signs: Last Vital Signs Pulse 77 11/26/24 08:14 BP 132/70 11/26/24 08:14 BMI result Body Mass Index 31.5 Const General: comfortable and no acute distress Orientation/consciousness: patient oriented x3 HEENT Other: Unremarkable Head: Yes normal to inspection Neck Neck: Yes normal visual inspection Chest Chest palpation & inspection: normal inspection of the chest Resp Auscultation: clear to auscultation bilaterally Cardio Palpation: normal PMI Heart sounds: S1 normal heart sound present, S2 normal heart sound present, no gallops, no murmurs and no rubs GI Palpation (GI): Soft to palpation Back/Spine/Pelvis Other: unremarkable Skin General skin exam: no rashes or lesions noted Neuro General: patient oriented x3 Extrem General: Yes normal to inspection Psych Mental Status: mental status grossly normal Office Procedures EKG Details: EKG with underlying sinus rhythm at 77/Min; no significant ST-T changes and otherwise unremarkable[place] [id number]-[id number], Complete Assessment & Plan Assessment & Plan (1) PAF (paroxysmal atrial fibrillation): Code(s): I48.0 - Paroxysmal atrial fibrillation Category: Medical Plan: Stable on Multaq, diltiazem. No changes. On Eliquis. In the past, had reported tiredness from beta-blockers. [id number] hyperdynamic LVEF, >70%; mild left atrial dilatation; mild aortic, mitral valve calcification. Myocardial perfusion imaging study -2020-without any evidence of ischemia or infarction. (2) Encounter for monitoring anti-arrhythmic therapy: Code(s): Z51.81 - Encounter for therapeutic drug level monitoring; Z79.899 - Other halfway (current) drug therapy Category: Medical Plan: Stable on Multaq. EKG in 3 months. (3) Personal history of nicotine dependence: Comment: (Current smoker, onset 11yo , 1ppd x 45, 45pyh, + fam hx) Counseled that he should try to quit smoking completely, or at least start cutting down the number of cigarettes. He does not want to use any nicotine products. Will continue to have annual lung screening, with low-dose CT scan. Code(s): Z87.891 - Personal history of nicotine dependence Category: Medical Plan: We again discussed about smoking cessation with regard to his cardiovascular and general health. Hopefully, he makes an attempt to stop. Coding Level of Care Code Est Pt Level 4 (65666) Complex EM visit Add On G2211 Diagnoses PAF (paroxysmal atrial fibrillation) I48.0 Encounter for monitoring anti-arrhythmic therapy Z51.81; Z79.899 Personal history of nicotine dependence Z87.891 CPT Codes EKG - CPT: 77757-[id number], Complete ([id number])
== END 2024-11-26 08:49 | disposition home or self-care (01) ==
LOC: HO.HCS 08:01
PROVIDERS: PCP Internal Medicine; Visit Provider Internal Medicine
DX: I48.0 Paroxysmal atrial fibrillation (principal); Z51.81 Encounter for therapeutic drug level monitoring; Z79.899 Other long term (current) drug therapy; Z87.891 Personal history of nicotine dependence
CPT/HCPCS: 93010; 99214; G2211

== ENCOUNTER → 2024-11-26 08:00 | Outpatient (BNVA) | payer OTHER, SELFPAY | PROVIDERS: PCP Internal Medicine; Visit Provider Internal Medicine | DX: I48.0 Paroxysmal atrial fibrillation (principal); Z51.81 Encounter for therapeutic drug level monitoring; Z87.891 Personal history of nicotine dependence; Z79.899 Other long term (current) drug therapy | CPT/HCPCS: 93005; 99212 ==

== ENCOUNTER 2025-02-11 08:54 | Outpatient (AMB) | payer OTHER, SELFPAY ==
--- NOTE | 2025-02-11 09:09 | A.OFFPC_ITS ---
Vital Signs 02/11/25 09:10 Height 5 ft 8 in Weight 202 lb 6 oz BMI 30.8 BP 130/80 Blood Pressure Location Lt brachial Position Sitting Pulse 89 Pulse Source Pulse Oximeter Temp 97.1 F Temp Source Temporal Artery Scan Pulse Oximetry (%) 95 Oxygen Delivery Method Room Air Intake Visit Reasons: 3 mo follow up Intake Note: Patient is here to follow up on DM, Chronic pain, PAF, COPD. [employer] Required: No Beam Racker: Not Required per policy Accompanied by: Self / Same As Patient Allergies gabapentin Adverse Reaction (Intermediate, Verified 02/11/25 09:10) dizziness Tobacco use date assessed: 02/11/25 Dental Screening Dental Screen Date: 11/05/24 [facility] Medical History (Updated 10/15/24 @ 09:53 by Gerber Naik MD) Chronic pain syndrome Nicotine dependence, cigarettes, uncomplicated COPD (chronic obstructive pulmonary disease) Insomnia Sleep disorder Obstructive sleep apnea PAF (paroxysmal atrial fibrillation) Essential (primary) hypertension Opioid dependence with unspecified opioid-induced disorder Peripheral vascular disease due to secondary diabetes Vitamin D deficiency Type 2 diabetes mellitus without complications Surgical History History of colonoscopy with polypectomy (04/30/23) History of colonoscopy (~04/30/23) History of incisional hernia repair History of inguinal hernia repair History of colostomy History of colostomy reversal History of dental surgery History of hernia repair Family History Father No problems noted. Mother Lung cancer, Onset Age: 48 Brother No problems noted. Brother No problems noted. Brother No problems noted. Sister No problems noted. Social History Household Members: Spouse Housing: Apartment Are you a primary healthcare consulting manager to a significant other at home: No Do you presently have visiting nurse or other home services: No Alcohol intake: never Comment: with patient at present Patient Tobacco Use Status: Current everyday Tobacco user Tobacco use type: Cigarette Cigarette Packs Per Day: 1 Cigarettes Per Day: 20.0 Years Smoked: 45 e-Cigarette/Vaping Use: Never Used Second Hand Smoke Exposure: Yes Substance Use Type: Marijuana Advance Directives Date on File: 02/01/21 service: No Current occupational status: disabled Current occupation: right handed Cognitive needs: No Hearing needs: No Vision needs: Yes (glasses) Questionnaire PHQ-9 Over the last 2 weeks, how often have you been bothered by any of the following problems? 1. Little interest or pleasure in doing things: not at all Depression Screening Interpretation: Negative Depression Screening Done: Yes Source: Developed by Drs. Vic Ragsdale, Joce Steele and colleagues, with an educational aleja from [employer]. Thrive Questionnaire Date Thrive assessed: 11/05/24 WANDER-7 AMB Questionnaire WANDER-7 Date WANDER - 7 assessed: 11/05/24 Source: Developed by Drs. Vic Ragsdale, Carmencita Joshua, Joce Boswell and colleagues, with an educational aleja from [employer]. Physical exam (Primary Care) Vital Signs: Last Vital Signs Temp 97.1 F 02/11/25 09:10 Pulse 89 02/11/25 09:10 BP 130/80 02/11/25 09:10 Pulse Ox 95 02/11/25 09:10 Oxygen Delivery Method Room Air 02/11/25 09:10 BMI result Body Mass Index 30.8 Tobacco/Smoking Status: Tobacco use Status Tobacco use date assessed 02/11/25 02/11/25 09:15 Patient Tobacco Use Status Current everyday Tobacco 02/11/25 09:15 Tobacco use type Cigarette 02/11/25 09:15 e-Cigarette/Vaping Use Never Used 02/11/25 09:15 Depression Screening Interpretation: Negative Thrive Assessment: Date of Thrive Assessment Date Thrive assessed 11/05/24 02/11/25 09:15 Results AMB Hemoglobin A1c AMB Hemoglobin A1c 8.4 % Last Edit by PACO Malcolm on 02/11/25 09:24 Results Reviewed Results Reviewed: Laboratory Last Values Hgb A1c (Clinic) 8.4 % (4.0-6.0) H 02/11/25 09:08 Coding Level of Care Code Est Pt Level 4 (39902) Complex EM visit Add On G2211 Diagnoses Type 2 diabetes mellitus without complication, without long-term current use of insulin E11.9 Diabetes mellitus assisted insulin use: without intermission coordinator use Assessment & Plan Assessment & Plan (1) Type 2 diabetes mellitus without complications: Code(s): E11.9 - Type 2 diabetes mellitus without complications Category: Medical Qualifiers: Diabetes mellitus assisted insulin use: without assisted use Qualified Code(s): E11.9 - Type 2 diabetes mellitus without complications Plan: A1c is worsening, despite patients attempt in improving his diet. Long acting insulin added to the regimen. Patient was advised to check his blood sugars twice a day. Follow up appt in one month. Plan History of Present Illness - The patient is a 59-year-old male presenting with elevated blood glucose levels. - He noted that despite cutting back on sugar and making dietary adjustments three months ago, his blood glucose remains poorly controlled with a recent hemoglobin A1c measurement over 8. - He consumes minimal sugar in coffee and has stopped snacking, yet he regularly eats bread, chicken dishes, noodles, and rice. - Significant pain and impaired mobility are affecting his daily activity, as he spends up to 19 hours in bed, impacting his routine blood glucose monitoring. - Current medications include metformin and Jardiance, but admits to not performing regular blood sugar checks. - He mentioned having completed all advanced directives during a prior hospital admission for surgery. Social History - Primarily bedridden due to pain, spending 18-19 hours a day in bed. - Mobility limited to driving short distances such as to appointments. Review of Systems - General: Denies issues with current medications adherence. - Endocrine: Reports elevated blood glucose levels, history of diabetes. - Musculoskeletal: Reports significant pain affecting mobility; bedridden for long periods. - Nutrition: Denies high sugar intake, consumes low sugar in coffee, avoiding snacks, regularly consuming sandwiches, chicken, noodles, rice. Physical Exam General: Cooperative and healthy appearing Nutritional Appearance: Well nourished Orientation/consciousness: Patient oriented x3 Limitations: No limitations Head: Normal to inspection General: Appearance normal, both eyes and all related structures Neck: Normal visual inspection Chest: Normal palpation of entire chest wall Respiratory: N ormal respiratory effort Neurology: Patient oriented x3, but reports being almost bedridden, spending 18- 19 hours a day in bed due to pain. Results - Labs: Elevated hemoglobin A1c (greater than 8). Plan 1. Type 2 Diabetes Mellitus - Start insulin injections at night, 10 units daily, to better manage blood glucose levels. - Demonstrated insulin pen use and advised on maintaining daily blood glucose monitoring to assess effectiveness of treatment. - Follow-up appointment in a month to evaluate medication tolerance and diabetes management. - Confirmed other prescriptions are current. 2. Pain - Address ongoing impact on mobility and consider further evaluation if persists or impacts diabetes management. Discussion Notes I discussed the elevated hemoglobin A1c, noted to be greater than 8, with Mr. Jesus, emphasizing the likely need for insulin therapy to better control his glucose levels. Instructions were provided on using the insulin pen, and I highl ighted the importance of consistent blood sugar monitoring at home. We arranged for a follow-up in one month to ensure he is tolerating the new medication and to adjust treatment as necessary. I confirmed that all necessary prescriptions were up to date and reiterated the need for regular glucose checks. We discussed the significant time Mr. Jesus spends bedridden due to pain, potentially complicating diabetes management, and encouraged mobility as tolerated. Patient Instructions - Use the insulin pen to inject 10 units every night. - Monitor blood sugar levels daily, especially before breakfast and two hours post-meal. - Bring your blood sugar machine to your next appointment. - Make an appointment for a month's time to check how you are doing with insulin. - Keep taking metformin and Jardiance as prescribed. - If you have questions about insulin, contact your pharmacy or visit the office. Orders: Orders AMB Hemoglobin A1c Today E11.9 - Type 2 diabetes mellitus without complications Medications: New insulin glargine (Lantus Solostar U-100 Insulin) 10 units (0.1 mL) subcut QPM 15 mL 0RF
[2025-02-11 09:10] VITALS: BP 130/80; PULSE 89; TEMP 36.2; O2SAT 95; BMI 30.8
== END 2025-02-11 09:47 | disposition home or self-care (01) ==
LOC: HO.HMCH 08:54
PROVIDERS: PCP Internal Medicine; Visit Provider Internal Medicine
DX: E11.9 Type 2 diabetes mellitus without complications (principal)

== ENCOUNTER → 2025-02-11 08:54 | Outpatient (BNVA) | payer OTHER, SELFPAY | PROVIDERS: PCP Internal Medicine; Visit Provider Internal Medicine | DX: E11.9 Type 2 diabetes mellitus without complications (principal); G89.29 Other chronic pain; I48.0 Paroxysmal atrial fibrillation; J44.9 Chronic obstructive pulmonary disease, unspecified | CPT/HCPCS: 83036; 99212 ==

== ENCOUNTER → 2025-02-17 09:27 | Outpatient (BNVA) | payer OTHER, SELFPAY | PROVIDERS: PCP Internal Medicine ==

== ENCOUNTER 2025-03-11 08:12 | Outpatient (REF) | payer OTHER, SELFPAY ==
--- NOTE | ~2025-03-11 | XR_ITS ---
EXAMINATION: XR HUMERUS LEFT HISTORY: S40.029A - Contusion of unspecified upper arm, initial encounter COMPARISON: There are no prior studies available for comparison. FINDINGS: AP and lateral views of the left humerus are submitted. Osseous mineralization is normal. There is no fracture or dislocation. The visualized shoulder and elbow joint spaces are preserved. The soft tissues are unremarkable. XR/XR humerus LT IMPRESSION: No evidence of fracture of the left humerus. Electronically signed by: Vic Monroe MD 03/11/2025 10:56 AM EDT
== END 2025-03-11 08:13 | disposition home or self-care (01) ==
LOC: HO.XRAY 08:12
PROVIDERS: PCP Internal Medicine; Visit Provider Internal Medicine
DX: S50.12XA Contusion of left forearm, initial encounter (principal); E11.9 Type 2 diabetes mellitus without complications; X58.XXXA Exposure to other specified factors, initial encounter; Y93.9 Activity, unspecified; Y92.9 Unspecified place or not applicable; Y99.9 Unspecified external cause status
CPT/HCPCS: 73060; 99212

== ENCOUNTER 2025-03-11 08:12 | Outpatient (AMB) | payer OTHER, SELFPAY ==
--- NOTE | 2025-03-11 08:56 | A.OFFPC_ITS ---
Vital Signs 03/11/25 08:57 Height 5 ft 8 in Weight 199 lb 4 oz BMI 30.3 BP 130/90 H Blood Pressure Location Lt brachial Position Sitting Pulse 82 Pulse Source Pulse Oximeter Pulse Oximetry (%) 98 Oxygen Delivery Method Room Air Intake Visit Reasons: 1 month f/u - see comments Retail Merchandising Manager Required: No Accompanied by: Self / Same As Patient Allergies gabapentin Adverse Reaction (Intermediate, Verified 03/11/25 08:58) dizziness Tobacco use date assessed: 03/11/25 Dental Screening Dental Screen Date: 03/11/25 Did you have a dental visit in the last 12 months?: Yes Did you have a dental problem in the last 6 months where you did not have access to dental care?: No Was dental information given to patient?: Patient has dentist [facility] Medical History (Updated 10/15/24 @ 09:53 by Gerber Naik MD) Chronic pain syndrome Nicotine dependence, cigarettes, uncomplicated COPD (chronic obstructive pulmonary disease) Insomnia Sleep disorder Obstructive sleep apnea PAF (paroxysmal atrial fibrillation) Essential (primary) hypertension Opioid dependence with unspecified opioid-induced disorder Peripheral vascular disease due to secondary diabetes Vitamin D deficiency Type 2 diabetes mellitus without complications Surgical History History of colonoscopy with polypectomy (04/30/23) History of colonoscopy (~04/30/23) History of incisional hernia repair History of inguinal hernia repair History of colostomy History of colostomy reversal History of dental surgery History of hernia repair Family History Father No problems noted. Mother Lung cancer, Onset Age: 48 Brother No problems noted. Brother No problems noted. Brother No problems noted. Sister No problems noted. Social History Household Members: Spouse Housing: Apartment Are you a primary career technical education teacher to a significant other at home: No Do you presently have visiting nurse or other home services: No Alcohol intake: never Comment: with patient at present Patient Tobacco Use Status: Current everyday Tobacco user Tobacco use type: Cigarette Cigarette Packs Per Day: 1 Cigarettes Per Day: 20.0 Years Smoked: 45 e-Cigarette/Vaping Use: Never Used Second Hand Smoke Exposure: Yes Substance Use Type: Marijuana Advance Directives Date on File: 02/01/21 service: No Current occupational status: disabled Current occupation: right handed Cognitive needs: No Hearing needs: No Vision needs: Yes (glasses) Questionnaire PHQ-9 Over the last 2 weeks, how often have you been bothered by any of the following problems? 1. Little interest or pleasure in doing things: not at all 2. Feeling down, depressed, or hopeless: not at all 3. Trouble falling or staying asleep, or sleeping too much: not at all 4. Feeling tired or having little energy: not at all 5. Poor appetite or overeating: not at all 6. Feeling bad about yourself - or that you are a failure or have let yourself or your family down: not at all 7. Trouble concentrating on things, such as reading the newspaper or watching television: not at all 8. Moving or speaking so slowly that other people could have noticed. Or the opposite - being so fidgety or restless that you have been moving around a lot more than usual: not at all 9. Thoughts that you would be better off or of hurting yourself in some way: not at all Total score: 0 Depression Screening Interpretation: Negative Depression Screening Done: Yes Source: Developed by Drs. Vic Ragsdale, Carmencita Joshua, Joce Boswell and colleagues, with an educational aleja from [employer]. Thrive Questionnaire Date Thrive assessed: 03/11/25 I am a: Patient What is your living situation today?: I have a steady place to live Within the past 12 months, did the food you bought not last and you didn't have the money to get more?: Never true Within the past 12 months, did you worry whether your food would run out before you got money to buy more?: Never true Do you have trouble paying for medicines?: No Do you have trouble getting transportation to medical appointments?: No Do you have trouble paying your heating and electricity bill?: No Do you have trouble taking care of your child, family member or friend?: No Do you have trouble with day-to-day activities such as bathing, preparing meals, shopping, managing finances, etc.?: No Are you currently unemployed and looking for a job?: No Are you interested in more education?: No Please select the resources that you would like help with: None Currently or been in a relationship where the following occur: No concerns reported THRIVE Score: 0 AUDIT C Alcohol Use Questionnaire (AUDIT-C) 1. How often do you have a drink containing alcohol?: Never 3. How often do you have six or more drinks on one occasion?: Never Total Score: 0 WANDER-7 AMB Questionnaire WANDER-7 Date WANDER - 7 assessed: 03/11/25 Feeling nervous, anxious, or on edge: 0 = Not at all Not being able to stop or control worryin = Not at all Worrying too much about different things: 0 = Not at all Trouble relaxin = Not at all Being so restless that it is hard to sit still: 0 = Not at all Becoming easily annoyed or irritable: 0 = Not at all Feeling afraid as if something awful might happen: 0 = Not at all Total WANDER-7 score (0-4 normal; 5-9 mild; 10-14 moderate; 15-21 severe): 0 Source: Developed by Drs. Vic Ragsdale, Carmencita Joshua, Joce Boswell and colleagues, with an educational aleja from [employer]. Physical exam (Primary Care) Vital Signs: Last Vital Signs Pulse 82 03/11/25 08:57 BP 130/90 H 03/11/25 08:57 Pulse Ox 98 03/11/25 08:57 Oxygen Delivery Method Room Air 03/11/25 08:57 BMI result Body Mass Index 30.3 Tobacco/Smoking Status: Tobacco use Status Tobacco use date assessed 03/11/25 03/11/25 09:01 Patient Tobacco Use Status Current everyday Tobacco 03/11/25 09:01 Tobacco use type Cigarette 03/11/25 09:01 e-Cigarette/Vaping Use Never Used 03/11/25 09:01 PHQ-9: PHQ-9 Score PHQ-9: Total score 0 03/11/25 09:01 Depression Screening Interpretation: Negative Thrive Assessment: Date of Thrive Assessment Date Thrive assessed 03/11/25 03/11/25 09:01 Currently or been in a relationship where the following occur: No concerns reported Coding Level of Care Code Est Pt Level 4 (62061) Complex EM visit Add On G2211 Diagnoses Contusion, arm, upper S40.029A Type 2 diabetes mellitus without complication, without long-term current use of insulin E11.9 Diabetes mellitus retirement insulin use: without long distance operator use Assessment & Plan Assessment & Plan (1) Contusion, arm, upper: Code(s): S40.029A - Contusion of unspecified upper arm, initial encounter Plan: Xray ordered. Will inform pt of results (2) Type 2 diabetes mellitus without complications: Code(s): E11.9 - Type 2 diabetes mellitus without complications Category: Medical Qualifiers: Diabetes mellitus long distance operator insulin use: without long distance operator use Qualified Code(s): E11.9 - Type 2 diabetes mellitus without complications Plan: Blood sugars revd. They are in range. Continue 10 units of insulin at bedtime. Pt has changed his diet. Advise to follow a nutritious diet. Plan History of Present Illness - The patient is a 59-year-old male presenting with diabetes mellitus and arm pain. - Diabetes Mellitus: The patient has initiated insulin therapy, which has improved his blood glucose levels. - He has also implemented dietary changes to aid in glucose control. - Arm Pain: The patient describes a six-week history of worsening arm pain, with a palpable bump noted. - Sleeping on the affected side may exacerbate the pain. Social History - The patient has made dietary changes to improve diabetes management. Review of Systems - Musculoskeletal: Reports arm pain with a palpable bump, denies ability to make a muscle with the affected arm. Physical Exam General: Cooperative and healthy appearing Nutritional Appearance: Well nourished Orientation/consciousness: Patient oriented x3 Limitations: No limitations Head: Normal to inspection General: Appearance normal, both eyes and all related structures Neck: Normal visual inspection Chest: Normal palpation of entire chest wall Respiratory: N ormal respiratory effort Neurology: Patient oriented x3, but reports pain in the arm, worsening over six weeks, with a noticeable bump and inability to make a muscle with the affected arm. An x-ray is recommended for further evaluation. Left arm: No visible bruising. Pain on internal and external rotation Results - Imaging: X-ray of the arm was ordered to evaluate the palpable bump and pain. Plan 1. Diabetes Mellitus - Continue insulin therapy at the current dosage of ten units. - Ensure adequate supply of diabetes management tools, including lancets and wipes. - Consider eligibility for a continuous glucose monitor. 2. Arm Pain - Obtain an X-ray of the arm to assess the palpable bump and pain. - Evaluate the need for further intervention based on X-ray results. Discussion Notes I discussed with the patient the importance of continuing insulin therapy and maintaining dietary changes to manage diabetes effectively. We also talked about the need for an X-ray to evaluate the arm pain and the potential for further interventions based on the results. The patient was informed about the possibility of obtaining a continuous glucose monitor if eligible. Patient Instructions - Continue taking insulin as prescribed and monitor blood sugar levels regularly. - Follow up with the X-ray appointment and discuss results with the doctor. - Maintain dietary changes to support blood sugar control. Orders: Orders XR humerus LT Today S40.029A - Contusion of unspecified upper arm, initial encounter
[2025-03-11 08:57] VITALS: BP 130/90; PULSE 82; O2SAT 98; BMI 30.3
== END 2025-03-11 10:39 | disposition home or self-care (01) ==
LOC: HO.HMCH 08:12
PROVIDERS: PCP Internal Medicine; Visit Provider Internal Medicine
DX: S40.029A Contusion of unspecified upper arm, initial encounter (principal); E11.9 Type 2 diabetes mellitus without complications

== ENCOUNTER → 2025-03-11 09:53 | Outpatient (BNV) | payer OTHER, SELFPAY | PROVIDERS: PCP Internal Medicine; Visit Provider Radiology Diagnostic Radiology | DX: S40.021A Contusion of right upper arm, initial encounter (principal) | CPT/HCPCS: 73060 ==

== ENCOUNTER 2025-03-16 04:03 | Emergency (ER) | payer OTHER, SELFPAY ==
--- NOTE | ~2025-03-16 | XR_ITS ---
EXAMINATION: XR SHOULDER, LEFT CLINICAL INFORMATION: atraumatic pain COMPARISON: None available. TECHNIQUE: AP external rotation, Grashey, scapular Y, and axillary views of the left shoulder. FINDINGS: No acute cortical disruption or malalignment. Mild degenerative changes in the glenohumeral joint and to a lesser extent common clavicular joint. No lytic or blastic lesions. XR/XR shoulder LT min 2V IMPRESSION: Mild degenerative changes without acute fracture or dislocation. Electronically signed by: Keith Lawson MD 03/16/2025 08:08 AM EDT
[2025-03-16 04:12] VITALS: BP 132/75; PULSE 77; RESP 20; TEMP 36.9; O2SAT 98; BMI 30.3
[2025-03-16 05:50] VITALS: BP 119/69; PULSE 64; RESP 16; TEMP 36.9; O2SAT 98
--- NOTE | 2025-03-16 07:12 | ED_ITS ---
HPI - Extremity Problem General Chief complaint: Extremity Injury, Upper Stated complaint: shoulder pain Time Seen by Provider: 03/16/25 07:11 History of Present Illness ED Provider: Verna DOMINGO Narrative: The patient is a 59-year-old male who has a history of atrial fibrillation on apixaban. He also has a history of type 2 diabetes. He developed pain in his left shoulder about 8 weeks ago that seemed to come out of the blue. No trauma. He denies any repetitive motions. Pain worsened over the ensuing weeks. He saw his primary care doctor several days ago at a regular checkup and mentioned the pain. He had an outpatient x-ray of the humerus that was negative. The patient says that over the last 4 or 5 days the pain has gotten significantly worse of the now he really can not do anything at all with the arm. He indicates that the pain is located over the left deltoid muscle. He has had no fever, sweats, chills. However he says that he does feel somewhat generally run down. He has had no numbness or tingling in the hand or loss of function of the hand itself. Any movement of the left upper arm causes pain. Related Data Home Medications ?Medication ?Instructions ?Recorded ?Confirmed cholecalciferol (vitamin D3) 25 2,000 unit PO DAILY 11/26/24 mcg (1,000 unit) capsule (Vitamin D3) Previous Rx's ?Medication ?Instructions ?Recorded albuterol sulfate 90 mcg/actuation 2 puff inhalation Q 4-6H PRN for 03/24/24 aerosol inhaler wheezing #8.5 ea rosuvastatin 40 mg tablet 40 mg PO DAILY #90 tabs 04/03 03/25 dronedarone 400 mg tablet (Multaq) 400 mg PO BID #180 tabs 06/23/24 apixaban 5 mg tablet (Eliquis) 5 mg PO BID #180 tabs 0 11/23/24 diltiazem HCl 120 mg 120 mg PO DAILY #90 caps capsule,extended release 24 hr empagliflozin 25 mg tablet 25 mg PO DAILY #90 tabs (Jardiance) buprenorphine 4 mg-naloxone 1 mg 1 film buccal Q24H #3 0 ea 01/13/25 sublingual film (Suboxone) metformin 1,000 mg tablet 1,000 mg PO BID #180 tabs insulin glargine 100 unit/mL (3 10 unit (0.1 mL) subcu t QPM #15 mL 02/12/25 mL) subcutaneous pen (Lantus Solostar U-100 Insulin) pen needle, diabetic 32 gauge x #100 ea 02/16/25 (1st Tier Unifine Pentips) polyethylene glycol 3350 17 17 g PO DAILY #510 grams 0 03/03/25 gram/dose oral powder (Gavilax) 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 sensor (FreeStyle #3 ea 03/11/25 Maude 3 Plus Sensor device) 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,industrial/organizational psychologist,cont #1 ea 03/11/25 (FreeStyle Maude 3 [place]) Freestyle glucometer #1 ea 03/16/25 Freestyle glucometer lancets #1 ea 03/16/25 Freestyle glucometer strips #1 ea 03/16/25 acetaminophen 500 mg capsule 1,000 mg (2 x 500 mg) PO Q8H PRN 03/16/25 fever or pain #14 caps alchohol wipes #1 ea 03/16/25 oxycodone 5 mg tablet 5 mg PO Q6H PRN pain #14 tab s 03/16/25 prednisone 5 mg tablet 5 mg PO DIRECTED #66 tabs 03/16/25 Allergies Allergy/AdvReac Type Severity Reaction Status Date / Time gabapentin AdvReac Intermediate dizziness Verified 03/16/25 04:15 Review of Systems 2 Review of Systems: Yes all other systems are reviewed and are negative [facility] Past Medical History Medical History (Updated 03/17/25 @ 00:01 by Harini Juarez) Chronic pain syndrome Nicotine dependence, cigarettes, uncomplicated COPD (chronic obstructive pulmonary disease) Insomnia Sleep disorder Obstructive sleep apnea PAF (paroxysmal atrial fibrillation) Essential (primary) hypertension Opioid dependence with unspecified opioid-induced disorder Peripheral vascular disease due to secondary diabetes Vitamin D deficiency Type 2 diabetes mellitus without complications Surgical History History of colonoscopy with polypectomy (04/30/23) History of colonoscopy (~04/30/23) History of incisional hernia repair History of inguinal hernia repair History of colostomy History of colostomy reversal History of dental surgery History of hernia repair Family History Family History Father No problems noted. Mother Lung cancer, Onset Age: 48 Brother No problems noted. Brother No problems noted. Brother No problems noted. Sister No problems noted. Social History Social History Household Members: Spouse Housing: Apartment Are you a primary career manager to a significant other at home: No Do you presently have visiting nurse or other home services: No Alcohol intake: never Comment: with patient at present Patient Tobacco Use Status: Current everyday Tobacco user Tobacco use type: Cigarette Cigarette Packs Per Day: 1 Cigarettes Per Day: 20.0 Years Smoked: 45 Smoked in Last 30 Days: Yes e-Cigarette/Vaping Use: Never Used Second Hand Smoke Exposure: Yes Use of substances other than those prescribed or required for medical reasons: No Substance Use Type: Marijuana Advance Directives: Yes Advance Directives on File: Yes Advance Directives Date on File: 02/01/21 Do you have a plan to hurt others: No Plan service: No Current occupational status: disabled Current occupation: right handed Cognitive needs: No Hearing needs: No Vision needs: Yes (glasses) Physical Exam 2 Vital Signs: Vital Signs: Last Vital Signs Temp 98.5 F 03/16/25 09:24 Pulse 71 03/16/25 09:24 Resp 18 03/16/25 09:24 BP 161/95 H 03/16/25 09:24 Pulse Ox 97 03/16/25 09:24 O2 Del Method Room Air 03/16/25 09:24 BMI result Body Mass Index 30.3 Const: Other: The patient is a slim 59-year-old man who was awake and alert. He does not appear uncomfortable at rest. He does seem to have pain when he moves the left shoulder. HEENT: Other: The face is symmetrical. Mucous membranes moist. Eyes: Other: Pupils are round equal, conjunctivae are clear, extraocular movements intact Neck: Neck: Yes normal visual inspection, Yes full ROM and Yes no lymphadenopathy Resp: Effort & Inspection: normal respiratory effort Auscultation: clear to auscultation bilaterally Cardio: Rate: regular rate Rhythm: regular rhythm Heart sounds: S1 normal heart sound present and S2 normal heart sound present Skin: Other: The skin of the left shoulder is normal. There was no warmth. There was no erythema. There was no swelling. Neuro: Other: The patient is awake and alert with a normal mental status. Cranial nerves are intact. He has normal strength and sensation in the left hand and he has normal neurological function of the left arm except that movement of the left shoulder is limited by pain. His gait is normal. Extrem: Other: The patient is very tender in the region of the left proximal humerus. He is tender both anteriorly over the proximal humerus and laterally over the deltoid area. The clavicle and the scapula did not seem tender at all. The elbow is nontender. There is no obvious sense of fullness to the left shoulder joint. There was no deformity. He is able to move the left shoulder joint but with the pain. Medications Administered Discontinued Medications Generic Name Dose Route Start Last Admin Trade Name Cruzq PRN Reason Stop Dose Admin Acetaminophen 975 mg 03/16/25 07:23 03/16/25 07:34 Acetaminophen 325 Mg Tablet PO 03/16/25 07:24 975 mg ONCE ONE Administration Ketorolac Tromethamine 20 mg 03/16/25 07:23 03/16/25 07:34 Ketorolac Tromethamine 30 Mg/Ml Vial IM 03/16/25 07:24 20 mg ONCE ONE Administration Prednisone 60 mg 03/16/25 09:06 03/16/25 09:26 Prednisone 20 Mg Tablet PO 03/16/25 09:07 60 mg ONCE ONE Administration Medical Decision Making Medical Decision Making [facility] Narrative: The patient is a 59-year-old male who presents with 8 weeks of left shoulder pain that has gotten worse over the last 4 or 5 days. He has a left humerus x- ray a few days ago as an outpatient that was negative. A left shoulder x-ray today is also unremarkable. Labs are unremarkable. Vital signs are unremarkable. He has a nontoxic appearance. His physical exam seems most consistent with a soft tissue problem, possibly a tendinopathy. This could be proximal biceps tendinitis but he seems equally tender on the lateral aspect of the proximal humeral area as he does on the anterior aspect. The patient is on anticoagulation so he should not use nonsteroidal anti-inflammatories. He will be given a course of a prednisone taper and a sling and rest and should follow up with his PCP and Orthopedics. Lab Data 03/16/25 07:24 07/15/25 07:24 Labs: Lab Results 03/16/25 Range/Units 07:24 WBC 11.5 H (4.8-10.8) X10*3/uL RBC 5.25 (4.60-5.80) X10*6/uL Hgb 15.0 (14.0-18.0) g/dl Hct 43.6 (42.0-52.0) % MCV 83.0 (80.0-98.0) fL MCH 28.6 (27.0-33.0) pg MCHC 34.4 (31.0-36.0) g/dl RDW 14.9 (11.0-16.0) % Plt Count 216 (160-400) X10*3/uL MPV 9.2 L (9.4-12.4) fL Immature Gran % (Auto) 0.3 (0.0-0.4) % Neut % (Auto) 61.7 (45-73) % Lymph % (Auto) 29.0 (20-40) % [place] % (Auto) 7.4 (2-11) % Eos % (Auto) 0.9 (0-4) % Baso % (Auto) 0.7 (0-2) % Lymph # (Auto) 3.3 (1.2-4.9) X10*3/uL [place] # (Auto) 0.9 (0.1-1.2) X10*3/uL Eos # (Auto) 0.1 (0.0-0.4) X10*3/uL Baso # (Auto) 0.1 (0.0-0.2) X10*3/uL Abs Immat Gran (auto) 0.03 (0.00-0.03) X10*3/uL Absolute Neuts (auto) 7.1 (2.0-8.3) x10*3/uL Absolute Nucleated RBC 0.000 (0.0-0.012) X10*3/uL Nucleated RBC % (auto) 0.0 (0.0-0.2) /100WBC Sodium 142 (135-145) mmol/L Potassium 4.1 (3.3-5.1) mmol/L Chloride 105 (96-108) mmol/L Carbon Dioxide 26 (22-29) mmol/L Anion Gap 15 (12-20) BUN 11 (9-16) mg/dL Creatinine 0.68 (0.5-1.4) mg/dL Estim Creat Clear Calc 124.4 Estimated GFR > 60 Random Glucose 103 (60-115) mg/dL Uric Acid 3.4 (3.4-7.0) mg/dL Calcium 9.1 (8.4-10.2) mg/dL Magnesium 2.3 (1.6-2.6) mg/dL Total Bilirubin 0.5 (0.0-1.0) mg/dL AST 26 (5-37) U/L ALT 16 (0-40) U/L Alkaline Phosphatase 60 (39-117) U/L Total Creatine Kinase 74 (38-174) U/L C-Reactive Protein 0.21 (< or = 0.50) mg/dL Total Protein 7.0 (6.5-8.0) g/dL Albumin 4.5 (3.5-5.0) g/dL Discharge Plan Discharge Clinical Impression: Tendinopathy of left shoulder Patient Disposition: Home, Self-Care Additional Instructions: I think you have some kind of tendinitis in the region of your left shoulder. Please wear the sling provided for comfort. You has been started on a course of prednisone. Prednisone is a steroid medication that can function as an anti-inflammatory. My hope is this might start to help your symptoms over the next few days. You may take acetaminophen up to 3 times a day. I have sent a prescription for 2 extra-strength tablets to be taken together up to 3 times a day as needed for discomfort. Additionally I have sent a prescription for oxycodone tablets that you may use if absolutely necessary. Try to use these as little as possible. Please make sure that you continue taking your Suboxone while you are on oxycodone. I think it might be good for you to see an orthopedist to discuss his shoulder pain. You has been given the contact information for the orthopedic office. Also follow up with your regular doctor. Return to the emergency room if significantly worse. Prescriptions: New prednisone 5 mg tablet 5 mg PO DIRECTED Qty: 66 0RF Rx Instructions: Take 11 tablets by mouth daily for 1 day, then 10 tabs by mouth daily for 1 day, then 9 tabs by mouth daily for 1 day, continue to take 1 pill less per day by mouth until done acetaminophen 500 mg capsule 1,000 mg PO Q8H PRN (Reason: fever or pain) Qty: 14 0RF oxycodone 5 mg tablet 5 mg PO Q6H PRN (Reason: pain) Qty: 14 0RF Rx Instructions: Partial Fill upon patient request. No Action albuterol sulfate 90 mcg/actuation HFA aerosol inhaler 2 puff inhalation Q4-6H PRN (Reason: for wheezing) Qty: 8.5 2RF rosuvastatin 40 mg tablet 40 mg PO DAILY Qty: 90 3RF Multaq 400 mg tablet 400 mg PO BID Qty: 180 3RF Eliquis 5 mg tablet 5 mg PO BID Qty: 180 3RF diltiazem HCl 120 mg capsule,extended release 24hr 120 mg PO DAILY Qty: 90 3RF Jardiance 25 mg tablet 25 mg PO DAILY Qty: 90 3RF buprenorphine-naloxone [Suboxone] 4-1 mg film 1 film buccal Q24H Qty: 30 3RF Rx Instructions: place 1 strip/tab under (each) side of tongue metformin 1,000 mg tablet 1,000 mg PO BID Qty: 180 0RF insulin glargine [Lantus Solostar U-100 Insulin] 100 unit/mL (3 mL) insulin pen 10 unit subcut QPM Qty: 15 0RF (DME) pen needle, diabetic [1st Tier Unifine Pentips] 32 gauge x 5/32 needle See Rx Instructions .Route Qty: 100 0RF Rx Instructions: As directed once daily polyethylene glycol 3350 [Gavilax] 17 gram/dose powder 17 g PO DAILY Qty: 510 2RF (DME) FreeStyle Maude 3 Plus Sensor Device See Rx Instructions .Route Qty: 3 11RF Rx Instructions: As directed (DME) FreeStyle Maude 3 [place] Misc See Rx Instructions .Route Qty: 1 0RF Rx Instructions: As directed (DME) Freestyle glucometer See Rx Instructions .Route .MEDSUPPLY Qty: 1 0RF Rx Instructions: As directed (DME) Freestyle glucometer strips See Rx Instructions .Route .MEDSUPPLY Qty: 1 0RF Rx Instructions: As directed (DME) Freestyle glucometer lancets See Rx Instructions .Route .MEDSUPPLY Qty: 1 0RF Rx Instructions: As directed (DME) alchohol wipes See Rx Instructions .Route .MEDSUPPLY Qty: 1 3RF Rx Instructions: As directed cholecalciferol (vitamin D3) [Vitamin D3] 25 mcg (1,000 unit) Capsule 2,000 unit PO DAILY Referrals: [facility] [place] Orthopedic Surgeons [Provider Group] Kris Ivory MD [Primary Care Provider, Internal Medicine] Interventions: ED Discharge Assessment Last Done: 03/16/25 09:24 Discharge Date/Time: 03/16/25 09:29 Print Language: Angolan
[2025-03-16 07:19] VITALS: BP 161/95; PULSE 71; RESP 18; TEMP 36.9; O2SAT 97
[2025-03-16 07:28] LABS: MANUAL DIFF FLAG NO
[2025-03-16 07:29] LABS: Hematocrit 43.6 % (42.0-52.0); Hemoglobin 15.0 g/dl (14.0-18.0); Imm Gran Abs Auto 0.03 X10*3/uL (0.00-0.03); Imm Gran Pct Auto 0.3 % (0.0-0.4); Lymphocytes Absolute Auto 3.3 X10*3/uL (1.2-4.9); Mean Corpuscular HGB Conc 34.4 g/dl (31.0-36.0); Mean Corpuscular Hemoglobin 28.6 pg (27.0-33.0); Mean Corpuscular Volume 83.0 fL (80.0-98.0); NRBC Abs Auto 0.000 X10*3/uL (0.0-0.012); NRBC Pct Auto 0.0 /100WBC (0.0-0.2); Platelet Count 216 X10*3/uL (160-400); Red Blood Count 5.25 X10*6/uL (4.60-5.80); White Blood Count 11.5 X10*3/uL (4.8-10.8)
[2025-03-16 07:50] LABS: Alanine Aminotransferase 16 U/L (0-40); Albumin Level 4.5 g/dL (3.5-5.0); Alkaline Phosphatase 60 U/L (39-117); Anion Gap 15 (12-20); Aspartate Amino Transferase 26 U/L (5-37); Blood Urea Nitrogen 11 mg/dL (9-16); Calcium 9.1 mg/dL (8.4-10.2); Carbon Dioxide 26 mmol/L (22-29); Chloride 105 mmol/L (96-108); Creatinine Clr Calc Pharmacy 124.4; Estimated Glomerular Filt Rate > 60; Magnesium 2.3 mg/dL (1.6-2.6); Potassium 4.1 mmol/L (3.3-5.1); Sodium 142 mmol/L (135-145); Total Protein 7.0 g/dL (6.5-8.0)
--- NOTE | 2025-03-16 07:51 | PC.NURSE ---
a&ox4. vss and up to date. pt presents to the ED c/o atraumatic left shoulder pain x 8 weeks. patient reports waking up 8 weeks ago with intense pain. unknown numbness/tingling d/t increased pain. patient denies any injury. patient reports being seen at primary care, have XRs completed w/ no acute findings. pt presents to ED today c/o worsening pain that started on - rating the pain an 8/10. limited ROM noted. +pulses. labs obtained/sent to lab. medication administered per provider order. pending XR results at this time. on RA w/o difficulty. no sob/wob noted. respirations even/unlabored. plan of care ongoing. call wesley placed within reach.
[2025-03-16 08:56] LABS: Uric Acid 3.4 mg/dL (3.4-7.0)
[2025-03-16 09:24] VITALS: BP 161/95; PULSE 71; RESP 18; TEMP 36.9; O2SAT 97
== END 2025-03-16 09:29 | disposition home or self-care (01) ==
PROVIDERS: Emergency Provider Emergency Medicine; PCP Internal Medicine
DX: M75.22 Bicipital tendinitis, left shoulder (principal); M25.512 Pain in left shoulder; E11.9 Type 2 diabetes mellitus without complications; I48.91 Unspecified atrial fibrillation; E55.9 Vitamin D deficiency, unspecified; Z79.01 Long term (current) use of anticoagulants; Z79.899 Other long term (current) drug therapy
CPT/HCPCS: 36415; 73030; 80053; 82550; 83735; 84550; 85025; 86140; 96372; 99284; J1885

== ENCOUNTER → 2025-03-16 07:20 | Outpatient (BNV) | payer OTHER, SELFPAY | PROVIDERS: Emergency Provider Emergency Medicine; PCP Internal Medicine; Visit Provider Radiology Diagnostic Radiology | DX: M19.012 Primary osteoarthritis, left shoulder (principal) | CPT/HCPCS: 73030 ==

== ENCOUNTER 2025-04-08 08:23 | Outpatient (AMB) | payer OTHER, SELFPAY ==
--- NOTE | 2025-04-08 08:27 | MHC.OFFVIS ---
Vital Signs 04/08/25 08:36 Height 5 ft 8 in Weight 199 lb BMI 30.3 Intake Visit Reasons: ER f/u-Lt shoulder tendinitis Intake Note: Bran is a 59 year old right hand dominant male who presents today as a new patient for an ER follow up of left shoulder pain. [place] [facility] [place] pain that has been present for 8 weeks. No known injury. He was given a course of a prednisone taper and a sling for comfort, referred to orthopedics. At today's visit he reports ongoing pain that seems to be getting worse after he finished his course of prednisone. He continues to have limited ROM. His pain is located at the lateral side of arm, just below his shoulder. He complains of slight numbness, denies any tingling. Finds no relief with acetaminophen. Allergies gabapentin Adverse Reaction (Intermediate, Verified 03/16/25 04:15) dizziness Medication List - Last Reconciled 04/08/25 by Rita Bailey PA-C acetaminophen 1,000 mg (2 x 500 mg) PO Q8H PRN albuterol sulfate 90 mcg/actuation 2 puffs inhalation Q4-6H PRN [alchohol wipes As directed] apixaban (Eliquis) 5 mg PO BID 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 sensor (FreeStyle Maude 3 Plus Sensor device) As directed 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,conservation policy analyst,cont (FreeStyle Maude 3 [place]) As directed buprenorphine-naloxone 4-1 mg (Suboxone) 1 film buccal Q24H cholecalciferol (vitamin D3) (Vitamin D3) 2,000 units PO DAILY diltiazem HCl CD 120 mg PO DAILY dronedarone (Multaq) 400 mg PO BID empagliflozin (Jardiance) 25 mg PO DAILY [Freestyle glucometer As directed- BID] [Freestyle glucometer lancets As directed- BID] [Freestyle glucometer strips As directed- BID] insulin glargine (Lantus Solostar U-100 Insulin) 10 units (0.1 mL) subcut QPM metformin 1,000 mg PO BID pen needle, diabetic (1st Tier Unifine Pentips) As directed once daily polyethylene glycol 3350 (Gavilax) 17 grams PO DAILY rosuvastatin 40 mg PO DAILY HPI HPI ER f/u-Lt shoulder tendinitis: Details: 59-year-old gentleman presents to the office today for a follow-up left shoulder pain. He states he has been having pain for several months but it has been progressively getting worse. He states he woke up 1 morning with shoulder pain and has difficulty with bringing his arm up overhead and reaching. He denies any treatment to date other than going to the emergency department and getting a dose of steroids which were helpful but once he completed the course of steroids as pain came back. [facility] Medical History (Updated 04/08/25 @ 08:48 by Rita Bailey PA-C) Chronic pain syndrome Nicotine dependence, cigarettes, uncomplicated COPD (chronic obstructive pulmonary disease) Insomnia Sleep disorder Obstructive sleep apnea PAF (paroxysmal atrial fibrillation) Essential (primary) hypertension Opioid dependence with unspecified opioid-induced disorder Peripheral vascular disease due to secondary diabetes Vitamin D deficiency Type 2 diabetes mellitus without complications Surgical History History of colonoscopy with polypectomy (04/30/23) History of colonoscopy (~04/30/23) History of incisional hernia repair History of inguinal hernia repair History of colostomy History of colostomy reversal History of dental surgery History of hernia repair Family History Father No problems noted. Mother Lung cancer, Onset Age: 48 Brother No problems noted. Brother No problems noted. Brother No problems noted. Sister No problems noted. Social History Household Members: Spouse Housing: Apartment Are you a primary chiropractic care to a significant other at home: No Do you presently have visiting nurse or other home services: No Alcohol intake: never Comment: with patient at present Patient Tobacco Use Status: Current everyday Tobacco user Tobacco use type: Cigarette Cigarette Packs Per Day: 1 Cigarettes Per Day: 20.0 Years Smoked: 45 e-Cigarette/Vaping Use: Never Used Second Hand Smoke Exposure: Yes Substance Use Type: Marijuana Advance Directives Date on File: 02/01/21 service: No Current occupational status: disabled Current occupation: right handed Cognitive needs: No Hearing needs: No Vision needs: Yes (glasses) Review of Systems Const All systems reviewed & are unremarkable except as noted in HPI and below Physical Exam Vital Signs: BMI result Body Mass Index 30.3 Const General: cooperative and no acute distress Orientation/consciousness: patient oriented x3 Resp Effort & Inspection: normal respiratory effort and able to speak in complete sentences Cardio Peripheral pulses: Peripheral pulses 2+ throughout Neuro General: patient oriented x3 Extrem Other: Left shoulder normal to inspection. Tenderness over the bicipital groove and along deltoid region of the shoulder. FF to 175, ER to 90, IR to S1. 5/5 RTC strength, negative quarles, cross body abduction. NVI. Results Reviewed Results Reviewed: XR shoulder LT min 2V IMPRESSION: Mild degenerative changes without acute fracture or dislocation. Assessment & Plan Assessment & Plan (1) Impingement of left shoulder: Code(s): M25.812 - Other specified joint disorders, left shoulder Category: Medical Plan: We discussed options today which includes physical therapy which she is hesitant to begin but I did stressed the importance of working with them to work on posture and rotator cuff strength exercises. I also discussed with him the role of steroid injection and the benefits and may have on the inflammation and pain. He is a diabetic and we will hold off on this injection today. He will continue with [id number] Tylenol for discomfort. If he decides he would like to pursue injection he can contact our office and book an appointment otherwise she will follow up as needed. Orders: Orders PT Evaluation and Treatment Today M25.812 - Other specified joint disorders, left shoulder Coding Level of Care Code New Pt Level 3 (89999) Complex EM visit Add On G2211 Diagnoses Impingement of left shoulder M25.812
[2025-04-08 08:36] VITALS: BMI 30.3
== END 2025-04-08 09:18 | disposition home or self-care (01) ==
LOC: HO.HOS 08:24
PROVIDERS: PCP Internal Medicine; Visit Provider Physician Assistant
DX: M25.812 Other specified joint disorders, left shoulder (principal)
CPT/HCPCS: 99203; G2211

== ENCOUNTER → 2025-04-08 08:23 | Outpatient (BNVA) | payer OTHER, SELFPAY | PROVIDERS: PCP Internal Medicine; Visit Provider Physician Assistant | DX: M25.512 Pain in left shoulder (principal); M25.812 Other specified joint disorders, left shoulder | CPT/HCPCS: 99202 ==

== ENCOUNTER 2025-04-13 09:26 | Outpatient (AMB) | payer OTHER, SELFPAY ==
[2025-04-13 09:28] VITALS: BP 148/70; PULSE 97; TEMP 36.9; O2SAT 98
--- NOTE | 2025-04-13 09:28 | AM.OFFWIN_ITS ---
Intake Vital Signs 04/13/25 09:28 Height 5 ft 8 in Weight 197 lb BMI 30.0 BP 148/70 H Blood Pressure Location Rt brachial Position Sitting Pulse 97 Pulse Source Pulse Oximeter Temp 98.4 F Temp Source Oral Pulse Oximetry (%) 98 Oxygen Delivery Method Room Air Intake Visit Reasons: EP Cyst on buttock Patient Tobacco Use Status: Current everyday Tobacco user Emergency Management System Director Required: No Allergies gabapentin Adverse Reaction (Intermediate, Verified 04/13/25 09:33) dizziness Do you need a note to return to daycare/school/sports/work: No HPI HPI Comments History of Present Illness Details History of Present Illness - The patient is a 59-year-old male pres enting with a cyst at the top of his but tocks. - Annual recurrence of pilonidal cyst on this area. - Current episode started a week ago, wi th rapid growth and pain. - Cyst drained yesterday; no fever repor luciano. - No history of MRSA or general surgery consultation for this condition. - Previous treatment with Keflex was eff ective. - History of hernia consult in 2020, no previous surgery for cysts. Physical Exam General: Cooperative, healthy appearing, comfortable, no acute distress and well developed Orientation: Patient oriented x3 Limitations: No limitations Head: Normal to inspection Ears: Hearing grossly normal bilaterally Nose: Normal External nose present Face and sinus: Normal facial exam Eyes: Appearance normal, both eyes and all related structures Neck: Normal visual inspection and Yes full ROM Respiratory: Normal respiratory effort and able to speak in complete sentences. Skin: 1cm indurated area of erythma with slight serosanguinous fluid draining and black (from salve they applied) at gluteal cleft. Neuro: Patient oriented x3 Extremities: Normal to inspection [facility] Medical History (Updated 04/13/25 @ 10:10 by Ella Templeton PA-C) Chronic pain syndrome Nicotine dependence, cigarettes, uncomplicated COPD (chronic obstructive pulmonary disease) Insomnia Sleep disorder Obstructive sleep apnea PAF (paroxysmal atrial fibrillation) Essential (primary) hypertension Opioid dependence with unspecified opioid-induced disorder Peripheral vascular disease due to secondary diabetes Vitamin D deficiency Type 2 diabetes mellitus without complications Surgical History History of colonoscopy with polypectomy (04/30/23) History of colonoscopy (~04/30/23) History of incisional hernia repair History of inguinal hernia repair History of colostomy History of colostomy reversal History of dental surgery History of hernia repair Family History Father No problems noted. Mother Lung cancer, Onset Age: 48 Brother No problems noted. Brother No problems noted. Brother No problems noted. Sister No problems noted. Social History Household Members: Spouse Housing: Apartment Are you a primary manager respiratory care to a significant other at home: No Do you presently have visiting nurse or other home services: No Alcohol intake: never Comment: with patient at present Patient Tobacco Use Status: Current everyday Tobacco user Tobacco use type: Cigarette Cigarette Packs Per Day: 1 Cigarettes Per Day: 20.0 Years Smoked: 45 e-Cigarette/Vaping Use: Never Used Second Hand Smoke Exposure: Yes Substance Use Type: Marijuana Advance Directives Date on File: 02/01/21 service: No Current occupational status: disabled Current occupation: right handed Cognitive needs: No Hearing needs: No Vision needs: Yes (glasses) Review of Systems Const All systems reviewed & are unremarkable except as noted in HPI and below Physical Exam Vital Signs: Last Vital Signs Temp 98.4 F 04/13/25 09:28 Pulse 97 04/13/25 09:28 BP 148/70 H 04/13/25 09:28 Pulse Ox 98 04/13/25 09:28 Oxygen Delivery Method Room Air 04/13/25 09:28 BMI result Body Mass Index 30.0 Assessment & Plan Assessment & Plan (1) Abscess of gluteal cleft: Code(s): L02.31 - Cutaneous abscess of buttock Plan: Plan - VSS, pt well appearing, abscess not able to be drained as it is indurated. - Prescribe Keflex for one week, every six hours. - Monitor for resolution; consult PCP or return if symptoms get worse or fever develops. May need surgical consultation if cyst does not resolve or tunnels. - Use warm compresses to aid drainage. Patient was informed and verbally consented to the use of an ambient scribe for clinic note documentation during this visit. Medications: New cephalexin 500 mg PO Q6H 28 caps 0RF Coding Level of Care Code Est Pt Level 3 (98573) Diagnoses Abscess of gluteal cleft L02.31
== END 2025-04-13 10:21 | disposition home or self-care (01) ==
PROVIDERS: PCP Internal Medicine; Visit Provider Physician Assistant
DX: L02.31 Cutaneous abscess of buttock (principal)

== ENCOUNTER → 2025-04-13 09:26 | Outpatient (BNVA) | payer OTHER, SELFPAY | PROVIDERS: PCP Internal Medicine; Visit Provider Physician Assistant | DX: L02.31 Cutaneous abscess of buttock (principal) | CPT/HCPCS: 99212 ==

== ENCOUNTER 2025-06-01 12:34 | Emergency (ER) | payer OTHER, SELFPAY ==
--- NOTE | ~2025-06-01 | XR_ITS ---
EXAMINATION: XR CHEST CLINICAL INFORMATION: CP COMPARISON: 02/01/2021. TECHNIQUE: 2 views of the chest were obtained. FINDINGS: The cardiac, hilar, and mediastinal contours are normal. The lungs are mildly hyperaerated, however clear bilaterally. There is no pneumothorax or pleural effusion. There is no focal osseous or soft tissue abnormality. XR/XR chest 2V IMPRESSION: No active pulmonary disease. Electronically signed by: Ananda Russ MD 06/01/2025 01:10 PM EDT
--- NOTE | 2025-06-01 12:37 | ECG_ITS ---
Test Reason : CHEST PAIN Blood Pressure : */* mmHG Vent. Rate : 83 BPM Atrial Rate : 83 BPM P-R Int : 132 ms QRS Dur : 88 ms QT Int : 394 ms P-R-T Axes : 62 64 71 degrees QTcB Int : 462 ms Normal sinus rhythm Nonspecific ST abnormality Abnormal ECG When compared with ECG of 02-Feb-2021 01:46, No significant change was found Referred By: Generic ED Physician Electronically Signed By: JOHN ROLAND
[2025-06-01 12:42] VITALS: BP 162/91; PULSE 83; RESP 20; TEMP 36.7; O2SAT 97; BMI 29.1
--- NOTE | 2025-06-01 12:43 | ED.CHESTPAIN ---
HPI - Chest Pain General Chief Complaint: Chest Pain Stated Complaint: chest pain Related Data Home Medications ?Medication ?Instructions ?Recorded ?Confirmed cholecalciferol (vitamin D3) 25 2,000 unit PO DAILY 12/14/20 04/08/25 mcg (1,000 unit) capsule (Vitamin D3) Previous Rx's ?Medication ?Instructions ?Recorded albuterol sulfate 90 mcg/actuation 2 puff inhalation Q4-6H PRN for 03/24/24 aerosol inhaler wheezing #8.5 ea dronedarone 400 mg tablet (Multaq) 400 mg PO BID #180 tabs 06/23/24 apixaban 5 mg tablet (Eliquis) 5 mg PO BID #180 tabs 11/23/24 diltiazem HCl 120 mg 120 mg PO DAILY #90 caps 11/23/24 capsule,extended release 24 hr empagliflozin 25 mg tablet 25 mg PO DAILY #90 tabs 11/23/24 (Jardiance) insulin glargine 100 unit/mL (3 10 unit (0.1 mL) subcut QPM #15 mL 02/12/25 mL) subcutaneous pen (Lantus Solostar U-100 Insulin) 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 sensor (FreeStyle #3 ea 03/11/25 Maude 3 Plus Sensor device) 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,solar energy technician,cont #1 ea 03/11/25 (FreeStyle Maude 3 [place]) acetaminophen 500 mg capsule 1,000 mg (2 x 500 mg) PO Q8H PRN 03/16/25 fever or pain #14 caps Freestyle glucometer #1 ea 03/23/25 alchohol wipes #1 ea 04/13/25 cephalexin 500 mg capsule 500 mg PO Q6H #28 caps 04/13/25 rosuvastatin 40 mg tablet 40 mg PO DAILY #90 tabs 04/15/25 metformin 1,000 mg tablet 1,000 mg PO BID #180 tabs 04/29/25 buprenorphine 4 mg-naloxone 1 mg 1 film buccal Q24H #30 ea 05/12/25 sublingual film (Suboxone) Freestyle glucometer lancets #1 ea 05/19/25 Freestyle glucometer strips 2 #1 ea 05/19/25 times per day pen needle, diabetic 32 gauge x #100 ea 05/20/25 (1st Tier Unifine Pentips) polyethylene glycol 3350 17 17 g PO DAILY #510 grams 05/28/25 gram/dose oral powder (Gavilax) lidocaine 5 % topical patch 1 patch topical DAILY #15 ea 06/02/25 oxycodone 5 mg capsule 5 mg PO Q6H PRN pain 5 days #10 06/02/25 caps prednisone 10 mg tablets in a dose 10 mg PO DIRECTED 10 days #30 ea 06/02/25 pack Allergies Allergy/AdvReac Type Severity Reaction Status Date / Time gabapentin AdvReac Intermediate dizziness Verified 06/02/25 00:32 [facility] Past Medical History Medical History (Updated 06/02/25 @ 20:58 by SANKET Gan) Chronic pain syndrome Nicotine dependence, cigarettes, uncomplicated COPD (chronic obstructive pulmonary disease) Insomnia Sleep disorder Obstructive sleep apnea PAF (paroxysmal atrial fibrillation) Essential (primary) hypertension Opioid dependence with unspecified opioid-induced disorder Peripheral vascular disease due to secondary diabetes Vitamin D deficiency Type 2 diabetes mellitus without complications Surgical History History of colonoscopy with polypectomy (04/30/23) History of colonoscopy (~04/30/23) History of incisional hernia repair History of inguinal hernia repair History of colostomy History of colostomy reversal History of dental surgery History of hernia repair Family History Family History Father No problems noted. Mother Lung cancer, Onset Age: 48 Brother No problems noted. Brother No problems noted. Brother No problems noted. Sister No problems noted. Social History Social History Household Members: Spouse Housing: Apartment Are you a primary pharmacy care coordinator to a significant other at home: No Do you presently have visiting nurse or other home services: No Alcohol intake: never Comment: with patient at present Patient Tobacco Use Status: Current everyday Tobacco user Tobacco use type: Cigarette Cigarette Packs Per Day: 1 Cigarettes Per Day: 20.0 Years Smoked: 45 Smoked in Last 30 Days: Yes e-Cigarette/Vaping Use: Never Used Second Hand Smoke Exposure: Yes Use of substances other than those prescribed or required for medical reasons: No Substance Use Type: Marijuana Advance Directives: Yes Advance Directives on File: Yes Advance Directives Date on File: 04/25/22 Do you have a plan to hurt others: No Plan service: No Current occupational status: disabled Current occupation: right handed Cognitive needs: No Hearing needs: No Vision needs: Yes (glasses) Physical Exam Vital Signs: Vital Signs: Last Vital Signs Temp 98.1 F 06/01/25 12:42 Pulse 83 06/01/25 12:42 Resp 20 06/01/25 12:42 BP 162/91 H 06/01/25 12:42 Pulse Ox 97 06/01/25 12:42 O2 Del Method Room Air 06/01/25 12:42 BMI result Body Mass Index 29.1 Course Course Course Narrative: This is an RME: Additional HPI, ROS, PE not included below will be deferred to primary provider. RME assessment and note performed by: Krystal Page PA-C This is a 11-yugx-aff-male who presents to the ER with complaints of back pain and chest pain x 2 weeks. states that 3-4 months ago he had soreness in his upper arm. Plan: Labs, EKG, cxr Reevaluation(s) Reevaluation #1: Patient left without completing treatment. Medical Decision Making Lab Data 06/01/25 12:59 06/01/25 12:59 Labs: Lab Results 06/01/25 Range/Units 12:59 WBC 11.0 H (4.8-10.8) X10*3/uL RBC 5.03 (4.60-5.80) X10*6/uL Hgb 14.5 (14.0-18.0) g/dl Hct 42.7 (42.0-52.0) % MCV 84.9 (80.0-98.0) fL MCH 28.8 (27.0-33.0) pg MCHC 34.0 (31.0-36.0) g/dl RDW 15.5 (11.0-16.0) % Plt Count 249 (160-400) X10*3/uL MPV 9.4 (9.4-12.4) fL Immature Gran % (Auto) 0.5 H (0.0-0.4) % Neut % (Auto) 63.2 (45-73) % Lymph % (Auto) 25.9 (20-40) % [place] % (Auto) 7.8 (2-11) % Eos % (Auto) 2.0 (0-4) % Baso % (Auto) 0.6 (0-2) % Lymph # (Auto) 2.9 (1.2-4.9) X10*3/uL [place] # (Auto) 0.9 (0.1-1.2) X10*3/uL Eos # (Auto) 0.2 (0.0-0.4) X10*3/uL Baso # (Auto) 0.1 (0.0-0.2) X10*3/uL Abs Immat Gran (auto) 0.05 H (0.00-0.03) X10*3/uL Absolute Neuts (auto) 7.0 (2.0-8.3) x10*3/uL Absolute Nucleated RBC 0.000 (0.0-0.012) X10*3/uL Nucleated RBC % (auto) 0.0 (0.0-0.2) /100WBC Sodium 143 (135-145) mmol/L Potassium 4.5 (3.3-5.1) mmol/L Chloride 108 (96-108) mmol/L Carbon Dioxide 27 (22-29) mmol/L Anion Gap 13 (12-20) BUN 15 (9-16) mg/dL Creatinine 0.77 (0.5-1.4) mg/dL Estim Creat Clear Calc 107.9 Estimated GFR > 60 Random Glucose 203 H (60-115) mg/dL Calcium 9.3 (8.4-10.2) mg/dL Magnesium 2.3 (1.6-2.6) mg/dL Total Bilirubin 0.5 (0.0-1.0) mg/dL Direct Bilirubin 0.2 (0.0-0.5) mg/dL AST 21 (5-37) U/L ALT 11 (0-40) U/L Alkaline Phosphatase 63 (39-117) U/L Troponin I High Sens < 2.7 (<3.5-35.0) ng/L Total Protein 7.2 (6.5-8.0) g/dL Albumin 4.6 (3.5-5.0) g/dL Lipase 19 (8-78) U/L Discharge Plan Discharge Clinical Impression: Chest pain Patient Disposition: Left W/O Completing Treatment Prescriptions: No Action albuterol sulfate 90 mcg/actuation HFA aerosol inhaler 2 puff inhalation Q4-6H PRN (Reason: for wheezing) Qty: 8.5 2RF Multaq 400 mg tablet 400 mg PO BID Qty: 180 3RF Eliquis 5 mg tablet 5 mg PO BID Qty: 180 3RF diltiazem HCl 120 mg capsule,extended release 24hr 120 mg PO DAILY Qty: 90 3RF Jardiance 25 mg tablet 25 mg PO DAILY Qty: 90 3RF insulin glargine [Lantus Solostar U-100 Insulin] 100 unit/mL (3 mL) insulin pen 10 unit subcut QPM Qty: 15 0RF (DME) FreeStyle Maude 3 Plus Sensor Device See Rx Instructions .Route Qty: 3 11RF Rx Instructions: As directed (DME) FreeStyle Maude 3 [place] Misc See Rx Instructions .Route Qty: 1 0RF Rx Instructions: As directed (DME) Freestyle glucometer See Rx Instructions .Route .MEDSUPPLY Qty: 1 0RF Rx Instructions: As directed- BID (DME) alchohol wipes See Rx Instructions .Route .MEDSUPPLY Qty: 1 3RF Rx Instructions: As directed rosuvastatin 40 mg tablet 40 mg PO DAILY Qty: 90 3RF metformin 1,000 mg tablet 1,000 mg PO BID Qty: 180 0RF buprenorphine-naloxone [Suboxone] 4-1 mg film 1 film buccal Q24H Qty: 30 3RF Rx Instructions: place 1 strip/tab under (each) side of tongue (DME) Freestyle glucometer lancets See Rx Instructions .Route .MEDSUPPLY Qty: 1 0RF Rx Instructions: As directed- BID (DME) Freestyle glucometer strips 2 times per day See Rx Instructions .Route .MEDSUPPLY Qty: 1 0RF Rx Instructions: As directed- BID (DME) pen needle, diabetic [1st Tier Unifine Pentips] 32 gauge x 5/32 needle See Rx Instructions .Route Qty: 100 0RF Rx Instructions: As directed once daily polyethylene glycol 3350 [Gavilax] 17 gram/dose powder 17 g PO DAILY Qty: 510 2RF cholecalciferol (vitamin D3) [Vitamin D3] 25 mcg (1,000 unit) Capsule 2,000 unit PO DAILY prednisone 10 mg tablets,dose pack 10 mg PO DIRECTED 10 Days Qty: 30 0RF Rx Instructions: see taper instructions: 50mg x2 days, 40mg x2 days, 30mg x2 days, 20mg x2 days, 10mg x2 days lidocaine 5 % adhesive patch,medicated 1 patch topical DAILY Qty: 15 0RF Rx Instructions: leave on most painful area for up to 12 hrs oxycodone 5 mg capsule 5 mg PO Q6H PRN (Reason: pain) 5 Days Qty: 10 0RF Rx Instructions: Partial Fill upon patient request. acetaminophen 500 mg capsule 1,000 mg PO Q8H PRN (Reason: fever or pain) Qty: 14 0RF cephalexin 500 mg capsule 500 mg PO Q6H Qty: 28 0RF Discharge Date/Time: 06/01/25 18:22
[2025-06-01 13:04] LABS: MANUAL DIFF FLAG NO
[2025-06-01 13:06] LABS: Hematocrit 42.7 % (42.0-52.0); Hemoglobin 14.5 g/dl (14.0-18.0); Imm Gran Abs Auto 0.05 X10*3/uL (0.00-0.03); Imm Gran Pct Auto 0.5 % (0.0-0.4); Lymphocytes Absolute Auto 2.9 X10*3/uL (1.2-4.9); Mean Corpuscular HGB Conc 34.0 g/dl (31.0-36.0); Mean Corpuscular Hemoglobin 28.8 pg (27.0-33.0); Mean Corpuscular Volume 84.9 fL (80.0-98.0); NRBC Abs Auto 0.000 X10*3/uL (0.0-0.012); NRBC Pct Auto 0.0 /100WBC (0.0-0.2); Platelet Count 249 X10*3/uL (160-400); Red Blood Count 5.03 X10*6/uL (4.60-5.80); White Blood Count 11.0 X10*3/uL (4.8-10.8)
[2025-06-01 13:23] LABS: Alanine Aminotransferase 11 U/L (0-40); Albumin Level 4.6 g/dL (3.5-5.0); Alkaline Phosphatase 63 U/L (39-117); Anion Gap 13 (12-20); Aspartate Amino Transferase 21 U/L (5-37); Blood Urea Nitrogen 15 mg/dL (9-16); Calcium 9.3 mg/dL (8.4-10.2); Carbon Dioxide 27 mmol/L (22-29); Chloride 108 mmol/L (96-108); Creatinine Clr Calc Pharmacy 107.9; Estimated Glomerular Filt Rate > 60; Lipase 19 U/L (8-78); Magnesium 2.3 mg/dL (1.6-2.6); Potassium 4.5 mmol/L (3.3-5.1); Sodium 143 mmol/L (135-145); Total Protein 7.2 g/dL (6.5-8.0)
[2025-06-01 13:35] LABS: Troponin-I High Sensitivity < 2.7 ng/L (<3.5-35.0)
== END 2025-06-01 18:22 | disposition left against medical advice (07) ==
PROVIDERS: Physician Assistant Medical; Emergency Provider Emergency Medicine; PCP Internal Medicine
DX: R07.9 Chest pain, unspecified (principal); E11.9 Type 2 diabetes mellitus without complications; R94.31 Abnormal electrocardiogram [ECG] [EKG]; F17.200 Nicotine dependence, unspecified, uncomplicated; Z79.899 Other long term (current) drug therapy
CPT/HCPCS: 36415; 71046; 80048; 80076; 83690; 83735; 84484; 85025; 93005; 99281; 99283

== ENCOUNTER → 2025-06-01 12:37 | Outpatient (BNV) | payer OTHER, SELFPAY | PROVIDERS: Emergency Provider Emergency Medicine; PCP Internal Medicine; Visit Provider Internal Medicine | DX: R94.31 Abnormal electrocardiogram [ECG] [EKG] (principal) | CPT/HCPCS: 93010 ==

== ENCOUNTER → 2025-06-01 12:47 | Outpatient (BNV) | payer OTHER, SELFPAY | PROVIDERS: PCP Internal Medicine; Visit Provider Radiology Diagnostic Radiology | DX: R07.9 Chest pain, unspecified (principal) | CPT/HCPCS: 71046 ==

== ENCOUNTER 2025-06-02 00:19 | Emergency (ER) | payer OTHER, SELFPAY ==
--- NOTE | 2025-06-02 00:20 | ECG_ITS ---
Test Reason : CHEST PAIN Blood Pressure : */* mmHG Vent. Rate : 84 BPM Atrial Rate : 84 BPM P-R Int : 154 ms QRS Dur : 92 ms QT Int : 418 ms P-R-T Axes : 73 55 80 degrees QTcB Int : 493 ms Sinus rhythm with occasional Premature ventricular complexes and Premature atrial complexes Nonspecific ST and T wave abnormality Prolonged QT Abnormal ECG When compared with ECG of 01-Jun-2025 12:38, Premature ventricular complexes are now Present Premature atrial complexes are now Present Referred By: Generic ED Physician Electronically Signed By: JOHN ROLAND
[2025-06-02 00:29] VITALS: BP 163/77; PULSE 84; RESP 16; TEMP 36.9; O2SAT 96; BMI 29.6
[2025-06-02 01:27] LABS: Troponin-I High Sensitivity < 2.7 ng/L (<3.5-35.0)
[2025-06-02 02:20] VITALS: BP 150/81; PULSE 67; RESP 20; TEMP 36.7; O2SAT 98
--- NOTE | 2025-06-02 05:12 | ED.CHESTPAIN ---
HPI - Chest Pain General Chief Complaint: Chest Pain Stated Complaint: chest pain/back pain Time Seen by Provider: 06/02/25 04:18 Source: patient Mode of arrival: ambulatory Limitations: no limitations History of Present Illness ED Provider: Dr. Jimena Medel HPI narrative: 59-year-old male with history of atrial fibrillation on Eliquis, diabetes, COPD, chronic pain presenting with right-sided chest discomfort that has been ongoing for the last 2 weeks or so. Describes right-sided chest pain radiating to the back that is worse with movement of his chest and arms. Denies injury. Denies associated fever. Has been feeling well otherwise. Admits that his pain is poorly controlled with the oxycodone he normally takes for his chronic pain. Has had this issue previously and was given a course of steroids which he reports improved his pain substantially however, he ran out of steroids and continues to have pain. No reported cough or cold-type symptoms. Denies nausea or vomiting. Denies shortness of breath with the pain. No lower extremity edema or pain. Related Data Home Medications ?Medication ?Instructions ?Recorded ?Confirmed cholecalciferol (vitamin D3) 25 2,000 unit PO DAILY 12/14/20 04/08/25 mcg (1,000 unit) capsule (Vitamin D3) Previous Rx's ?Medication ?Instructions ?Recorded albuterol sulfate 90 mcg/actuation 2 puff inhalation Q4-6H PRN for 03/24/24 aerosol inhaler wheezing #8.5 ea dronedarone 400 mg tablet (Multaq) 400 mg PO BID #180 tabs 06/23/24 apixaban 5 mg tablet (Eliquis) 5 mg PO BID #180 tabs 11/23/24 diltiazem HCl 120 mg 120 mg PO DAILY #90 caps 11/23/24 capsule,extended release 24 hr empagliflozin 25 mg tablet 25 mg PO DAILY #90 tabs 11/23/24 (Jardiance) insulin glargine 100 unit/mL (3 10 unit (0.1 mL) subcut QPM #15 mL 02/12/25 mL) subcutaneous pen (Lantus Solostar U-100 Insulin) 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 sensor (FreeStyle #3 ea 03/11/25 Maude 3 Plus Sensor device) 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,automation controls engineer,cont #1 ea 03/11/25 (FreeStyle Maude 3 [place]) acetaminophen 500 mg capsule 1,000 mg (2 x 500 mg) PO Q8H PRN 03/16/25 fever or pain #14 caps Freestyle glucometer #1 ea 03/23/25 alchohol wipes #1 ea 04/13/25 rosuvastatin 40 mg tablet 40 mg PO DAILY #90 tabs 04/15/25 metformin 1,000 mg tablet 1,000 mg PO BID #180 tabs 04/29/25 buprenorphine 4 mg-naloxone 1 mg 1 film buccal Q24H #30 ea 05/12/25 sublingual film (Suboxone) Freestyle glucometer lancets #1 ea 05/19/25 Freestyle glucometer strips 2 #1 ea 05/19/25 times per day pen needle, diabetic 32 gauge x #100 ea 05/20/25 (1st Tier Unifine Pentips) polyethylene glycol 3350 17 17 g PO DAILY #510 grams 05/28/25 gram/dose oral powder (Gavilax) prednisone 10 mg tablets in a dose 10 mg PO DIRECTED 10 days #30 ea 06/02/25 pack cyclobenzaprine 5 mg tablet 5 mg PO Q8H PRN Muscle Spasm #20 06/09/25 tabs prednisone 50 mg tablet 50 mg PO QAM #5 tabs 06/09/25 Allergies Allergy/AdvReac Type Severity Reaction Status Date / Time gabapentin AdvReac Intermediate dizziness Verified 06/09/25 07:59 Review of Systems Review of Systems: as per HPI, full review of systems performed and negative but for the above mentioned pertinent positives and negatives. [facility] Past Medical History Medical History Chronic pain syndrome Nicotine dependence, cigarettes, uncomplicated COPD (chronic obstructive pulmonary disease) Insomnia Sleep disorder Obstructive sleep apnea PAF (paroxysmal atrial fibrillation) Essential (primary) hypertension Opioid dependence with unspecified opioid-induced disorder Peripheral vascular disease due to secondary diabetes Vitamin D deficiency Type 2 diabetes mellitus without complications Surgical History History of colonoscopy with polypectomy (04/30/23) History of colonoscopy (~04/30/23) History of incisional hernia repair History of inguinal hernia repair History of colostomy History of colostomy reversal History of dental surgery History of hernia repair Family History Family History Father No problems noted. Mother Lung cancer, Onset Age: 48 Brother No problems noted. Brother No problems noted. Brother No problems noted. Sister No problems noted. Social History Social History Household Members: Spouse Housing: Apartment Are you a primary behavioral health care coordinator to a significant other at home: No Do you presently have visiting nurse or other home services: No Alcohol intake: never Comment: with patient at present Patient Tobacco Use Status: Current everyday Tobacco user Tobacco use type: Cigarette Cigarette Packs Per Day: 1 Cigarettes Per Day: 20.0 Years Smoked: 45 e-Cigarette/Vaping Use: Never Used Second Hand Smoke Exposure: Yes Substance Use Type: Marijuana Advance Directives Date on File: 04/25/22 service: No Current occupational status: disabled Current occupation: right handed Cognitive needs: No Hearing needs: No Vision needs: Yes (glasses) Physical Exam Exam: Exam: GENERAL: Ill-Appearing, appears uncomfortable. SKIN: Normal skin color for ethnicity, warm, dry, no rashes noted. HEENT:? Normocephalic, atraumatic, no stridor, dry mucous membranes, dentition intact, EOMI. NECK: Soft, supple, full ROM, midline structures nontender, no step-offs, no deformities, no lymphadenopathy. CHEST: Heart regular rhythm, no murmurs, symmetric chest rise and fall, TTP overlying the R 3-4 ribs, no crepitus, no rash. PULMONARY: Clear to auscultation bilaterally, diminished at the bases, no labored breathing, no wheezes/rhales/rhonchi. ABDOMINAL: Soft, nondistended, nontender, positive bowel sounds in all quadrants. : Deferred. MUSCULOSKELETAL: Normal tone, full range of motion, no deformities, no peripheral edema. NEURO: Alert and oriented x3, CN II through XII intact, equal strength and sensation bilateral upper and lower extremities, no focal neurologic deficits.? PSYCHIATRIC: Flat affect, fluid speech, good eye contact and appropriate demeanor. Vital Signs: Vital Signs: Last Vital Signs Temp 97.8 F 06/02/25 06:18 Pulse 64 06/02/25 06:18 Resp 14 06/02/25 06:18 BP 135/77 06/02/25 06:18 Pulse Ox 96 06/02/25 06:18 O2 Del Method Room Air 06/02/25 06:18 BMI result Body Mass Index 29.6 Medications Administered Discontinued Medications Generic Name Dose Route Start Last Admin Trade Name Audi PRN Reason Stop Dose Admin Lidocaine 1 patch 06/02/25 05:56 06/02/25 06:16 Lidocaine 4 % Patch Adh..Patch TRANSDERMA 06/02/25 05:57 1 patch ONCE ONE Administration Protocol Prednisone 50 mg 06/02/25 05:56 06/02/25 06:16 Prednisone 10 Mg Tablet PO 06/02/25 05:57 50 mg ONCE ONE Administration Medical Decision Making Medical Decision Making [facility] Narrative: Patient presents today with a chief complaint of chest pain. Differential diagnosis includes, but is not limited to, acute coronary syndrome, musculoskeletal pain, pneumothorax, GERD, pleurisy, pulmonary embolism, dissection, among others. I will order EKG, chest x-ray, laboratory workup including cardiac enzymes to further evaluate for etiology. Clinical picture is most consistent with costochondritis. He has point tenderness in his rib cage and back. He is requesting a prednisone taper which seemed to help him with previous bouts of costal chondritis. Plan for discharge home and outpatient follow-up with primary care. He understands agrees with plan for discharge. Discharged home stable condition. Differential Diagnosis Differential Diagnoses: The differential diagnosis associated with the presentation includes (as above) Admission/Observation Consideration of admission/observation: Escalation of care including admission/observation considered Lab Data [facility] Lab Attestation statement: I reviewed the patient's lab results. lab work from earlier in the day is reassuring. CBC and CMP normal. Cardiac enzyme negative x2. Labs: Lab Results 06/02/25 Range/Units 00:58 Troponin I High Sens < 2.7 (<3.5-35.0) ng/L Independent Interpretation I performed an independent interpretation of an: EKG External Record Review External record reviewed: Inpatient record Prescription Management I considered prescription management with: Pain Medication and Other (steriods) Chronic Conditions Patient?s care impacted by: Diabetes and Other (PAF) Discharge Plan Discharge Clinical Impression: Acute costochondritis Patient Disposition: Home, Self-Care Instructions: Costochondritis (ED) Additional Instructions: Use topical lidocaine patches as needed for pain. For breakthrough pain, take oxycodone. Make sure to keep taking your laxatives to help with constipation. Take your prednisone until the course is completed. Make sure to eat this medication with food as it can cause upset stomach and ulcers. Return to the emergency department immediately with any new or worsening symptoms including: Worsening chest pain, difficulty breathing, fevers greater than 100?, any new symptom that concerns you. Call 911 with any medical emergency. Prescriptions: New prednisone 10 mg tablets,dose pack 10 mg PO DIRECTED 10 Days Qty: 30 0RF Rx Instructions: see taper instructions: 50mg x2 days, 40mg x2 days, 30mg x2 days, 20mg x2 days, 10mg x2 days No Action albuterol sulfate 90 mcg/actuation HFA aerosol inhaler 2 puff inhalation Q4-6H PRN (Reason: for wheezing) Qty: 8.5 2RF Multaq 400 mg tablet 400 mg PO BID Qty: 180 3RF Eliquis 5 mg tablet 5 mg PO BID Qty: 180 3RF diltiazem HCl 120 mg capsule,extended release 24hr 120 mg PO DAILY Qty: 90 3RF Jardiance 25 mg tablet 25 mg PO DAILY Qty: 90 3RF insulin glargine [Lantus Solostar U-100 Insulin] 100 unit/mL (3 mL) insulin pen 10 unit subcut QPM Qty: 15 0RF (DME) FreeStyle Maude 3 Plus Sensor Device See Rx Instructions .Route Qty: 3 11RF Rx Instructions: As directed (DME) FreeStyle Maude 3 [place] Misc See Rx Instructions .Route Qty: 1 0RF Rx Instructions: As directed (DME) Freestyle glucometer See Rx Instructions .Route .MEDSUPPLY Qty: 1 0RF Rx Instructions: As directed- BID (DME) alchohol wipes See Rx Instructions .Route .MEDSUPPLY Qty: 1 3RF Rx Instructions: As directed rosuvastatin 40 mg tablet 40 mg PO DAILY Qty: 90 3RF metformin 1,000 mg tablet 1,000 mg PO BID Qty: 180 0RF buprenorphine-naloxone [Suboxone] 4-1 mg film 1 film buccal Q24H Qty: 30 3RF Rx Instructions: place 1 strip/tab under (each) side of tongue (DME) Freestyle glucometer lancets See Rx Instructions .Route .MEDSUPPLY Qty: 1 0RF Rx Instructions: As directed- BID (DME) Freestyle glucometer strips 2 times per day See Rx Instructions .Route .MEDSUPPLY Qty: 1 0RF Rx Instructions: As directed- BID (DME) pen needle, diabetic [1st Tier Unifine Pentips] 32 gauge x 5/32 needle See Rx Instructions .Route Qty: 100 0RF Rx Instructions: As directed once daily polyethylene glycol 3350 [Gavilax] 17 gram/dose powder 17 g PO DAILY Qty: 510 2RF cholecalciferol (vitamin D3) [Vitamin D3] 25 mcg (1,000 unit) Capsule 2,000 unit PO DAILY acetaminophen 500 mg capsule 1,000 mg PO Q8H PRN (Reason: fever or pain) Qty: 14 0RF prednisone 50 mg tablet 50 mg PO QAM Qty: 5 0RF cyclobenzaprine 5 mg tablet 5 mg PO Q8H PRN (Reason: Muscle Spasm) Qty: 20 0RF Interventions: ED Discharge Assessment Last Done: 06/02/25 06:18 Discharge Date/Time: 06/02/25 06:21 Print Language: [place]
[2025-06-02 06:03] VITALS: BP 135/77; PULSE 64; RESP 14; TEMP 36.6; O2SAT 96
[2025-06-02] MEDS: Lidocaine 4 % Patch ADH..PATCH 1 PATCH TRANSDERMA (06:16)
[2025-06-02 06:18] VITALS: BP 135/77; PULSE 64; RESP 14; TEMP 36.6; O2SAT 96
== END 2025-06-02 06:21 | disposition home or self-care (01) ==
PROVIDERS: Emergency Provider Emergency Medicine
DX: M94.0 Chondrocostal junction syndrome [Tietze] (principal); R07.9 Chest pain, unspecified; I48.91 Unspecified atrial fibrillation; E11.9 Type 2 diabetes mellitus without complications; J44.9 Chronic obstructive pulmonary disease, unspecified; Z79.01 Long term (current) use of anticoagulants; Z79.899 Other long term (current) drug therapy
CPT/HCPCS: 36415; 84484; 93005; 99284

== ENCOUNTER → 2025-06-02 00:20 | Outpatient (BNV) | payer OTHER, SELFPAY | PROVIDERS: Emergency Provider Emergency Medicine; Visit Provider Internal Medicine | DX: I49.3 Ventricular premature depolarization (principal); I49.1 Atrial premature depolarization | CPT/HCPCS: 93010 ==

== ENCOUNTER 2025-06-09 07:56 | Outpatient (AMB) | payer OTHER, SELFPAY ==
--- NOTE | 2025-06-09 07:57 | AM.OFFWIN_ITS ---
Intake Vital Signs 06/09/25 07:59 Height 5 ft 8 in Weight 187 lb BMI 28.4 BP 124/64 Blood Pressure Location Lt brachial Position Sitting Respiration 14 Pulse 96 Pulse Source Pulse Oximeter Temp 97.8 F Temp Source Oral Pulse Oximetry (%) 98 Oxygen Delivery Method Room Air Intake Visit Reasons: EP-costochondritis Intake Note: Pt is here today c/o upper rib pain and upper back was seen in the [facility] ER 06/02/25 Patient Tobacco Use Status: Current everyday Tobacco user Allergies gabapentin Adverse Reaction (Intermediate, Verified 06/09/25 07:59) dizziness HPI HPI Comments History of Present Illness Details History of Present Illness - The patient is a 59-year-old male pres enting with severe chest wall pain. - He was seen in the ER on 06/02 for the same pain. - He had an x-ray which was negative and he was told that he has costochondritis. - The rib pain began approximately three weeks ago, initially as a sharp pain in the mid back where the ribs attach to the spine and the sternum. - The pain radiates from the back to the front in the middle of the chest and worsens with movement and deep breathing. - There is no history of trauma or heavy lifting associated with the onset of pain. - Prednisone provided temporary relief, but the pain recurred after a few hours. - Acetaminophen and oxycodone have not s ignificantly alleviated the pain. - He was not able to fiber picker the lidocai ne due to insurance not covering it. - He has a continued sharp pain in the c hest and has a hard time moving and breathing. - He denies abd pain, n/v/d, rashes, tra mauro or falls. Physical Exam General: Cooperative, healthy appearing, uncomfortable, no acute distress and well developed Orientation: Patient oriented x3 Neck: Normal visual inspection and Yes full ROM Respiratory: Normal respiratory effort and able to speak in complete sentences. Clear to auscultation bilaterally. No w/r/r noted. Cardiovascular: Regular rate and rhythm. Normal S1 and S2. No m/r/g noted. TTP of the sternum, anterior and posterior chest wall. No crepitus noted. GI: Normal to inspection. Soft to palpation and nontender, no guarding or rebound tenderness noted. Skin: No rashes or lesions noted Patient was informed and verbally consented to the use of an ambient scribe for clinic note documentation during this visit. [facility] Medical History (Updated 06/03/25 @ 00:00 by Harini Juarez) Chronic pain syndrome Nicotine dependence, cigarettes, uncomplicated COPD (chronic obstructive pulmonary disease) Insomnia Sleep disorder Obstructive sleep apnea PAF (paroxysmal atrial fibrillation) Essential (primary) hypertension Opioid dependence with unspecified opioid-induced disorder Peripheral vascular disease due to secondary diabetes Vitamin D deficiency Type 2 diabetes mellitus without complications Surgical History History of colonoscopy with polypectomy (04/30/23) History of colonoscopy (~04/30/23) History of incisional hernia repair History of inguinal hernia repair History of colostomy History of colostomy reversal History of dental surgery History of hernia repair Family History Father No problems noted. Mother Lung cancer, Onset Age: 48 Brother No problems noted. Brother No problems noted. Brother No problems noted. Sister No problems noted. Social History Household Members: Spouse Housing: Apartment Are you a primary day care aide to a significant other at home: No Do you presently have visiting nurse or other home services: No Alcohol intake: never Comment: with patient at present Patient Tobacco Use Status: Current everyday Tobacco user Tobacco use type: Cigarette Cigarette Packs Per Day: 1 Cigarettes Per Day: 20.0 Years Smoked: 45 e-Cigarette/Vaping Use: Never Used Second Hand Smoke Exposure: Yes Substance Use Type: Marijuana Advance Directives Date on File: 04/25/22 service: No Current occupational status: disabled Current occupation: right handed Cognitive needs: No Hearing needs: No Vision needs: Yes (glasses) Review of Systems Const All systems reviewed & are unremarkable except as noted in HPI and below Physical Exam Vital Signs: Last Vital Signs Temp 97.8 F 06/09/25 07:59 Pulse 96 06/09/25 07:59 Resp 14 06/09/25 07:59 BP 124/64 06/09/25 07:59 Pulse Ox 98 06/09/25 07:59 Oxygen Delivery Method Room Air 06/09/25 07:59 BMI result Body Mass Index 28.4 Office Meds ketorolac 30 mg/mL (1 mL) injection solution Performing Provider: Krystal Felder PA-C Performing Location: [facility] Administered by: Krystal Felder PA-C on 06/09/25 08:23 Dose Route Admin Location Dispensed Lot Number Expiration Date 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 - Alternative pain management strategies are being considered due to inadequate relief from current medications. - Current pain management includes prednisone, acetaminophen, and cyclobenzaprine - Encourge incentive spirometry and deep breathing once an hour - activities as tolerated - will call with the results - follow up with PCP for pain medication refills and if his pain does not improve Orders: Orders XR chest 2V Today R05.9 - Cough, unspecified AMB Ketorolac Injection Today M53.3 - Sacrococcygeal disorders, not elsewhere classified Medications: New prednisone 50 mg PO QAM 5 tabs 0RF cyclobenzaprine 5 mg PO Q8H PRN 20 tabs 0RF Muscle Spasm Coding Level of Care Code Est Pt Level 4 (67849) Diagnoses Chest wall pain R07.89 Costochondritis M94.0
[2025-06-09 07:59] VITALS: BP 124/64; PULSE 96; RESP 14; TEMP 36.6; O2SAT 98; BMI 28.4
== END 2025-06-09 08:37 | disposition home or self-care (01) ==
PROVIDERS: Visit Provider Physician Assistant Medical
DX: R07.89 Other chest pain (principal); M94.0 Chondrocostal junction syndrome [Tietze]; M53.3 Sacrococcygeal disorders, not elsewhere classified

== ENCOUNTER 2025-06-09 07:56 | Outpatient (REF) | payer OTHER, SELFPAY ==
--- NOTE | ~2025-06-09 | XR_ITS ---
EXAMINATION: XR CHEST 2 VIEWS HISTORY: R05.9 - Cough, unspecified COMPARISON: Comparison is made with the prior examination dated 06/01/2025. FINDINGS: PA and lateral views of the chest are submitted. The lungs are expanded and clear. There is no pleural effusion, pneumothorax, or pulmonary vascular congestion. The heart is normal in size. There is degenerative disc disease of the spine. XR/XR chest 2V IMPRESSION: No acute cardiopulmonary abnormality. Electronically signed by: Vic Monroe MD 06/09/2025 08:38 AM EDT
== END 2025-06-09 07:57 | disposition home or self-care (01) ==
LOC: HO.HMGCX 07:56
PROVIDERS: PCP Internal Medicine; Visit Provider Physician Assistant Medical
DX: R07.89 Other chest pain (principal); M94.0 Chondrocostal junction syndrome [Tietze]; R05.9 Cough, unspecified; M53.3 Sacrococcygeal disorders, not elsewhere classified
CPT/HCPCS: 71046; 96372; 99212; J1885

== ENCOUNTER → 2025-06-09 08:29 | Outpatient (BNV) | payer OTHER, SELFPAY | PROVIDERS: PCP Internal Medicine; Visit Provider Radiology Diagnostic Radiology | DX: R05.9 Cough, unspecified (principal) | CPT/HCPCS: 71046 ==

== ENCOUNTER 2025-06-15 09:04 | Outpatient (AMB) | payer OTHER, SELFPAY ==
--- NOTE | 2025-06-15 09:10 | MHC.OFFVIS ---
Vital Signs 06/15/25 09:14 Height 5 ft 8 in Weight 189 lb 9.561 oz BMI 28.8 BP 120/72 Blood Pressure Location Lt brachial Position Sitting Pulse 99 Pulse Source Pulse Oximeter Intake Visit Reasons: 6m follow up Psychiatry Adult Physician Required: No Accompanied by: Self / Same As Patient Allergies gabapentin Adverse Reaction (Intermediate, Verified 06/09/25 07:59) dizziness Medication List - Last Reconciled 06/15/25 by Pascual Garcia MD acetaminophen 1,000 mg (2 x 500 mg) PO Q8H PRN albuterol sulfate 90 mcg/actuation 2 puffs inhalation Q4-6H PRN [alchohol wipes As directed] apixaban (Eliquis) 5 mg PO BID 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 sensor (FreeStyle Maude 3 Plus Sensor device) As directed 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,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,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 (FreeStyle Maude 3 [place]) As directed buprenorphine-naloxone 4-1 mg (Suboxone) 1 film buccal Q24H cholecalciferol (vitamin D3) (Vitamin D3) 2,000 units PO DAILY cyclobenzaprine 5 mg PO Q8H PRN diltiazem HCl CD 120 mg PO DAILY dronedarone (Multaq) 400 mg PO BID empagliflozin (Jardiance) 25 mg PO DAILY [Freestyle glucometer As directed- BID] [Freestyle glucometer lancets As directed- BID] [Freestyle glucometer strips 2 times per day As directed- BID] insulin glargine (Lantus Solostar U-100 Insulin) 10 units (0.1 mL) subcut QPM metformin 1,000 mg PO BID pen needle, diabetic (1st Tier Unifine Pentips) As directed once daily polyethylene glycol 3350 (Gavilax) 17 grams PO DAILY prednisone 10 mg PO DIRECTED 10 days prednisone 50 mg PO QAM rosuvastatin 40 mg PO DAILY HPI Comments Details: Bran returns for follow-up regarding atrial fibrillation. He remains on a combination of diltiazem and Multaq. From the cardiac standpoint, he has got no recurrent palpitations or anything else. Main concern over the last few weeks his musculoskeletal pain in the chest and back. Extremely tender and very positional. It seems he has been to ER. Unremarkable troponins. Just from his description, does not sound cardiac. Was diagnosed as costochondritis. [facility] Medical History Chronic pain syndrome Nicotine dependence, cigarettes, uncomplicated COPD (chronic obstructive pulmonary disease) Insomnia Sleep disorder Obstructive sleep apnea PAF (paroxysmal atrial fibrillation) Essential (primary) hypertension Opioid dependence with unspecified opioid-induced disorder Peripheral vascular disease due to secondary diabetes Vitamin D deficiency Type 2 diabetes mellitus without complications Surgical History History of colonoscopy with polypectomy (04/30/23) History of colonoscopy (~04/30/23) History of incisional hernia repair History of inguinal hernia repair History of colostomy History of colostomy reversal History of dental surgery History of hernia repair Family History Father No problems noted. Mother Lung cancer, Onset Age: 48 Brother No problems noted. Brother No problems noted. Brother No problems noted. Sister No problems noted. Social History Household Members: Spouse Housing: Apartment Are you a primary care partner to a significant other at home: No Do you presently have visiting nurse or other home services: No Alcohol intake: never Comment: with patient at present Patient Tobacco Use Status: Current everyday Tobacco user Tobacco use type: Cigarette Cigarette Packs Per Day: 1 Cigarettes Per Day: 20.0 Years Smoked: 45 e-Cigarette/Vaping Use: Never Used Second Hand Smoke Exposure: Yes Substance Use Type: Marijuana Advance Directives Date on File: 04/25/22 service: No Current occupational status: disabled Current occupation: right handed Cognitive needs: No Hearing needs: No Vision needs: Yes (glasses) Review of Systems Const Denies chills, Denies fatigue, Denies fever(s), Denies frequent falls, Denies weakness, Denies weight gain and Denies weight loss ENT Denies dizziness Card Reports chest pain, Reports chest pain at rest, Reports chest pain with activity, Denies leg edema, Denies lightheadedness, Reports palpitations, Reports dyspnea, Reports dyspnea on exertion and Reports orthopnea Resp Denies cough, Reports dyspnea and Reports dyspnea on exertion GI Denies hematochezia Musc Denies abnormal gait, Denies muscle weakness, Denies numbness, Denies radiating pain into limb and Denies tingling Neuro Denies abnormal gait, Denies dizziness, Denies frequent falls, Denies numbness, Denies tingling and Denies weakness Endo Denies fatigue and Reports palpitations Physical Exam Vital Signs: Last Vital Signs Pulse 99 06/15/25 09:14 BP 120/72 06/15/25 09:14 BMI result Body Mass Index 28.8 Const Orientation/consciousness: patient oriented x3 HEENT Other: Unremarkable Head: Yes normal to inspection Neck Neck: Yes normal visual inspection Chest Chest palpation & inspection: normal inspection of the chest Resp Auscultation: clear to auscultation bilaterally Cardio Palpation: normal PMI Heart sounds: S1 normal heart sound present, S2 normal heart sound present, no gallops, no murmurs and no rubs GI Palpation (GI): Soft to palpation Back/Spine/Pelvis Other: Tenderness to touch all over the upper back and chest Skin General skin exam: no rashes or lesions noted Neuro General: patient oriented x3 Extrem General: Yes normal to inspection Psych Mental Status: mental status grossly normal Assessment & Plan Assessment & Plan (1) PAF (paroxysmal atrial fibrillation): Code(s): I48.0 - Paroxysmal atrial fibrillation Category: Medical Plan: Stable on Multaq, diltiazem. No changes. On Eliquis. In the past, had reported tiredness from beta-blockers. [id number] hyperdynamic LVEF, >70%; mild left atrial dilatation; mild aortic, mitral valve calcification. Myocardial perfusion imaging study -2020-without any evidence of ischemia or infarction. (2) Encounter for monitoring anti-arrhythmic therapy: Code(s): Z51.81 - Encounter for therapeutic drug level monitoring; Z79.899 - Other terminal carman (current) drug therapy Category: Medical Plan: Stable on Multaq. QT intervals have been under 500 milliseconds. EKG in 3 months. (3) Personal history of nicotine dependence: Comment: (Current smoker, onset 11yo , 1ppd x 45, 45pyh, + fam hx) Counseled that he should try to quit smoking completely, or at least start cutting down the number of cigarettes. He does not want to use any nicotine products. Will continue to have annual lung screening, with low-dose CT scan. Code(s): Z87.891 - Personal history of nicotine dependence Category: Medical Plan: Smoking cessation has been discussed many times. Plan With regard to the current pain in his chest and back, very tender everywhere and strongly suggestive of musculoskeletal etiology. Advised him to seek care from his primary care doctor/pain medicine. Coding Level of Care Code Est Pt Level 4 (12899) Complex EM visit Add On G2211 Diagnoses PAF (paroxysmal atrial fibrillation) I48.0 Encounter for monitoring anti-arrhythmic therapy Z51.81; Z79.899 Personal history of nicotine dependence Z87.891
[2025-06-15 09:14] VITALS: BP 120/72; PULSE 99; BMI 28.8
== END 2025-06-15 09:37 | disposition home or self-care (01) ==
LOC: HO.HCS 09:05
PROVIDERS: PCP Internal Medicine; Visit Provider Internal Medicine
DX: I48.0 Paroxysmal atrial fibrillation (principal); Z51.81 Encounter for therapeutic drug level monitoring; Z79.899 Other long term (current) drug therapy; Z87.891 Personal history of nicotine dependence
CPT/HCPCS: 99214; G2211

== ENCOUNTER → 2025-06-15 09:04 | Outpatient (BNVA) | payer OTHER, SELFPAY | PROVIDERS: PCP Internal Medicine; Visit Provider Internal Medicine | DX: I48.0 Paroxysmal atrial fibrillation (principal); Z87.891 Personal history of nicotine dependence; Z79.899 Other long term (current) drug therapy | CPT/HCPCS: 99212 ==

== ENCOUNTER 2025-06-16 07:07 | Outpatient (AMB) | payer OTHER, SELFPAY ==
--- NOTE | 2025-06-16 07:11 | MHC.OFFWIV ---
Intake Vital Signs 06/16/25 07:14 Height 5 ft 8 in Weight 189 lb BMI 28.7 BP 124/90 H Blood Pressure Location Lt brachial Position Sitting Respiration 18 Pulse 112 H Pulse Source Pulse Oximeter Temp 98.3 F Temp Source Oral Pulse Oximetry (%) 98 Oxygen Delivery Method Room Air Intake Visit Reasons: EP-chest pain, sob, sweating Intake Note: Pt is here today c/o chest pain, SOB and sweating Patient Tobacco Use Status: Current everyday Tobacco user Allergies gabapentin Adverse Reaction (Intermediate, Verified 06/09/25 07:59) dizziness [facility] HPI Comments History of Present Illness Details History of Present Illness - The patient is a 59-year-old male presenting with chest pain. - The chest pain has persisted for a month, prompting multiple emergency department and clinic visits. - Diagnosed with costochondritis after negative troponins and repetitive pinpoint tenderness findings. - Temporary relief from prednisone, but pain recurs; other medications like tylenol and oxycodone ineffective. - [facility] appt yesterday thought non-cardiac origin of pain, follow-up with PCP recommended. - History of atrial fibrillation, with past echocardiogram showing hyperdynamic LVEF and mild valve calcifications. - Current smoker, 2 recent chest X-rays show mildly hyperinflated lungs but no acute changes - QT WNL at 354 on Multaq - PT refuses to go to Pain Management, says he would rather than go back there. Physical Exam General: Cooperative, healthy appearing, comfortable, no acute distress and well developed Orientation: Patient oriented x3 Limitations: No limitations Head: Normal to inspection Ears: Hearing grossly normal bilaterally Nose: Normal External nose present Face and sinus: Normal facial exam Eyes: Appearance normal, both eyes and all related structures Neck: Normal visual inspection and Yes full ROM Chest: point tenderness at T4 where it meets the sternum, and TTP mid back directly opposite the chest Respiratory: Normal respiratory effort and able to speak in complete sentences. Skin: No rashes or lesions noted Neuro: Patient oriented x3 Extremities: Normal to inspection Review of Systems - Cardiovascular: Reports chest pain, slight dyspnea due to pain, denies nausea or vomiting. - General: denies significant shortness of breath. All systems reviewed and are unremarkable except as noted in HPI [facility] Medical History Chronic pain syndrome Nicotine dependence, cigarettes, uncomplicated COPD (chronic obstructive pulmonary disease) Insomnia Sleep disorder Obstructive sleep apnea PAF (paroxysmal atrial fibrillation) Essential (primary) hypertension Opioid dependence with unspecified opioid-induced disorder Peripheral vascular disease due to secondary diabetes Vitamin D deficiency Type 2 diabetes mellitus without complications Surgical History History of colonoscopy with polypectomy (04/30/23) History of colonoscopy (~04/30/23) History of incisional hernia repair History of inguinal hernia repair History of colostomy History of colostomy reversal History of dental surgery History of hernia repair Family History Father No problems noted. Mother Lung cancer, Onset Age: 48 Brother No problems noted. Brother No problems noted. Brother No problems noted. Sister No problems noted. Social History Household Members: Spouse Housing: Apartment Are you a primary medicare nurse to a significant other at home: No Do you presently have visiting nurse or other home services: No Alcohol intake: never Comment: with patient at present Patient Tobacco Use Status: Current everyday Tobacco user Tobacco use type: Cigarette Cigarette Packs Per Day: 1 Cigarettes Per Day: 20.0 Years Smoked: 45 e-Cigarette/Vaping Use: Never Used Second Hand Smoke Exposure: Yes Substance Use Type: Marijuana Advance Directives Date on File: 04/25/22 service: No Current occupational status: disabled Current occupation: right handed Cognitive needs: No Hearing needs: No Vision needs: Yes (glasses) Physical Exam Vital Signs: Last Vital Signs Temp 98.3 F 06/16/25 07:14 Pulse 112 H 06/16/25 07:14 Resp 18 06/16/25 07:14 BP 124/90 H 06/16/25 07:14 Pulse Ox 98 06/16/25 07:14 Oxygen Delivery Method Room Air 06/16/25 07:14 BMI result Body Mass Index 28.7 Office Procedures EKG Details: sinus tachycardia at 108BPM, pac's, no acute st or t wave changes, similar to previous [id number], Complete Assessment & Plan Assessment & Plan (1) Acute costochondritis: Code(s): M94.0 - Chondrocostal junction syndrome [Tietze] Plan: Plan Patient was informed and verbally consented to the use of an ambient scribe for clinic note documentation during this visit. - EKG today shows sinus tachycardia at 108BPM with no ST or T wave changes, no significant changes from previous tests. - Follow up with primary care physician. - Prescribed diclofenac gel and lesser strength lidocaine patches with hope his ins co will cover it, he won't buy OTC - Advised follow-up with primary care physician as scheduled in 2 weeks. - Encouraged him to give Pain Mgmt another try Orders: Orders AMB EKG-In Office Today R07.9 - Chest pain, unspecified Medications: New diclofenac sodium 3% 1 appl topical BID 100 grams 0RF lidocaine 4% (Aspercreme (lidocaine)) 1 patch topical DAILY PRN 15 ea 0RF pain Coding Level of Care Code Est Pt Level 4 (81692) Diagnoses Acute costochondritis M94.0 CPT Codes EKG - CPT: 90675-[id number], Complete ([id number])
[2025-06-16 07:14] VITALS: BP 124/90; PULSE 112; RESP 18; TEMP 36.8; O2SAT 98; BMI 28.7
== END 2025-06-16 08:08 | disposition home or self-care (01) ==
PROVIDERS: PCP Internal Medicine; Visit Provider Physician Assistant
DX: M94.0 Chondrocostal junction syndrome [Tietze] (principal)

== ENCOUNTER → 2025-06-16 07:07 | Outpatient (BNVA) | payer OTHER, SELFPAY | PROVIDERS: PCP Internal Medicine; Visit Provider Physician Assistant | DX: M94.0 Chondrocostal junction syndrome [Tietze] (principal); R07.9 Chest pain, unspecified; I48.91 Unspecified atrial fibrillation; F17.210 Nicotine dependence, cigarettes, uncomplicated | CPT/HCPCS: 93005; 99212 ==

== ENCOUNTER 2025-06-18 07:58 | Emergency (ER) | payer OTHER, SELFPAY ==
--- NOTE | ~2025-06-18 | CT_ITS ---
EXAMINATION: CT CHEST WITH CONTRAST CLINICAL INFORMATION: Chest pain. Dysphagia. Weight loss. COMPARISON: CT lung screening dated August 13, 2024 TECHNIQUE: Multidetector volumetric CT imaging of the chest was obtained after the administration of 65 mL of Omnipaque 350 intravenous contrast without immediate adverse reactions. Axial MIP volume rendering provided. Sagittal and coronal reformatted images were obtained. No reported immediate complications. This CT examination was performed using dose optimization techniques as appropriate, variously including the following: *Automated exposure control *Adjustment of mA and/or kV according to patient size (this includes techniques or standardized protocols for targeted exams where dose is matched to indication/reason for exam; i.e. extremities or head) *Use of iterative reconstruction technique DLP: 309 mGy centimeter. FINDINGS: FLAT SURFACER JEWEL: Pulmonary reticular pattern. Cardiomediastinal silhouette size is normal. Multilevel thoracolumbar spondylosis. Patient's large body habitus. Upper extremities at the size of the head. LUNGS: Hyperinflated lungs. Centrilobular and paraseptal emphysematous changes involving mostly the upper lobes. No gross bronchiectasis or honeycombing. Secretions layering within the lumen of the distal trachea and right mainstem bronchus. No gross consolidation. No gross pulmonary nodules. MEDIASTINUM: Less than 1 cm mediastinal lymph nodes, nonspecific. No aneurysm or dissection, thoracic aorta. Calcified plaques in the thoracic aorta wall and its main branches. Calcified plaques in the coronary arteries. The heart is small. Calcifications in the mitral valve. Focal concentric wall thickening, mid esophagus with narrowed lumen. No pericardial effusion. No pneumomediastinum. No hemopericardium. The thyroid gland is not enlarged. PLEURA: No pleural effusion. No pneumothorax. No calcified pleural plaques. AXILLA: No lymphadenopathy. UPPER ABDOMEN: 1 cm cyst, right kidney. Calcified plaques in the abdominal aorta wall and its main mesenteric branches and the left main renal artery. Postsurgical changes in the anterior abdominal wall possibly mesh procedure. OSSEOUS STRUCTURES: Multilevel thoracic spondylosis. No acute fracture. Grade 1 retrolisthesis L1 to. S-shaped curvature of the thoracic spine. No acute rib fracture. CT/CT chest w IV con IMPRESSION: Focal abnormality in the mid intrathoracic esophagus. Inflammatory versus infectious versus neoplasm. Emphysematous type changes. No acute airspace disease Coronary artery disease and atherosclerosis disease. Calcified mitral valve.. Fleischner guidelines were followed. Electronically signed by: Keith Lawson MD 06/18/2025 10:37 AM EDT
--- NOTE | 2025-06-18 08:00 | ECG_ITS ---
Test Reason : CP Blood Pressure : */* mmHG Vent. Rate : 104 BPM Atrial Rate : 104 BPM P-R Int : 122 ms QRS Dur : 92 ms QT Int : 368 ms P-R-T Axes : 63 54 91 degrees QTcB Int : 483 ms Sinus tachycardia Nonspecific ST and T wave abnormality Abnormal ECG When compared with ECG of 02-Jun-2025 00:25, Premature ventricular complexes are no longer Present Premature atrial complexes are no longer Present Referred By: Generic ED Physician Electronically Signed By: Cam Malcolm
[2025-06-18 08:05] VITALS: BP 151/79; PULSE 106; RESP 18; TEMP 36.6; O2SAT 97; BMI 27.6
--- NOTE | 2025-06-18 08:31 | ED_ITS ---
HPI - General Adult General Chief complaint: General Medical Stated complaint: multiple complaints Time Seen by Provider: 06/18/25 08:21 Source: patient and old records reviewed Mode of arrival: ambulatory Limitations: no limitations History of Present Illness ED Provider: EJ DOMINGO narrative: 59 yo male with PMH of opioid use disorder on suboxone, PAF on eliquis (always compliant), chronic pain, COPD, DM2, still a smoker here with c/o 1 month of chest wall pain but also raspy voice and pain with eating. He feels like he has pain and cannot eat. He feels like he swallows food and this AM he felt scrambled eggs get stuck. He states he has lost about 20lbs in a month. It hurts to breathe at times. He has no fevers, no cough. He states he does not take antacids and has never had an EGD. He has no vomiting/diarrhea, no melena. MD complaint: central chest pain, weight loss Onset (ago): month(s) (1) Location: chest Radiation: non-radiation Severity: moderate Quality: burning and aching Pain Consistency: constant Relieving factors: none Exacerbating factors: eating Associated symptoms: loss of appetite and malaise Treatments prior to arrival: none Related Data Home Medications ?Medication ?Instructions ?Recorded ?Confirmed cholecalciferol (vitamin D3) 25 2,000 unit PO DAILY 06/15/25 mcg (1,000 unit) capsule (Vitamin D3) Previous Rx's ?Medication ?Instructions ?Recorded albuterol sulfate 90 mcg/actuation 2 puff inhalation Q 4-6H PRN for 03/24/24 aerosol inhaler wheezing #8.5 ea dronedarone 400 mg tablet (Multaq) 400 mg PO BID #180 tabs 06/23/24 apixaban 5 mg tablet (Eliquis) 5 mg PO BID #180 tabs 0 11/23/24 diltiazem HCl 120 mg 120 mg PO DAILY #90 caps capsule,extended release 24 hr empagliflozin 25 mg tablet 25 mg PO DAILY #90 tabs (Jardiance) insulin glargine 100 unit/mL (3 10 unit (0.1 mL) subcu t QPM #15 mL 02/12/25 mL) subcutaneous pen (Lantus Solostar U-100 Insulin) 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 sensor (FreeStyle #3 ea 03/11/25 Maude 3 Plus Sensor device) 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,cushion assembler,cont #1 03/11/25 (FreeStyle Maude 3 [place]) Freestyle glucometer #1 ea 03/23/25 alchohol wipes #1 ea 04/13/25 rosuvastatin 40 mg tablet 40 mg PO DAILY #90 tabs 04/02 12/25 metformin 1,000 mg tablet 1,000 mg PO BID #180 tabs buprenorphine 4 mg-naloxone 1 mg 1 film buccal Q24H #3 0 ea 05/12/25 sublingual film (Suboxone) Freestyle glucometer lancets #1 05/19/25 Freestyle glucometer strips 2 #1 05/19/25 times per day pen needle, diabetic 32 gauge x #100 ea 05/20/25 (1st Tier Unifine Pentips) polyethylene glycol 3350 17 17 g PO DAILY #510 grams 0 05/28/25 gram/dose oral powder (Gavilax) cyclobenzaprine 5 mg tablet 5 mg PO Q8H PRN Muscle Spa sm #20 06/09/25 tabs diclofenac sodium 3 % topical gel 1 appl topical BID # 100 grams 06/16/25 lidocaine 4 % topical patch 1 patch topical DAILY PRN pain #15 06/16/25 (Aspercreme (lidocaine)) ea ondansetron 4 mg disintegrating 4 mg PO Q8H PRN nausea and 06/18/25 tablet vomiting #20 tabs pantoprazole 40 mg tablet,delayed 40 mg PO DAILY #30 t abs 06/18/25 release Allergies Allergy/AdvReac Type Severity Reaction Status Date / Time gabapentin AdvReac Intermediate dizziness Verified 06/18/25 08:11 Review of Systems 2 Review of Systems: Constitutional : pos Weight loss, No Fever, No Chills ENT/Mouth : No sore throat, No Rhinorrhea Eyes: No Eye Pain, No Swelling Cardiovascular : pos Chest Pain, pos SOB, Respiratory : No Cough, No Sputum Gastrointestinal : pos Nausea, No Vomiting, No Diarrhea, No abdominal Pain, No Hematochezia, No Melena Genitourinary : No Dysuria, No Urinary Frequency Musculoskeletal : No joint pain, No Myalgias, No Joint Swelling Skin : No Skin Lesions, No rash Neuro : No Weakness, No Numbness, No Dizziness, No Headache All other systems reviewed and are negative [facility] Past Medical History Attestation statement: The following information was validated with the patient. Source: old records reviewed Medical History Chronic pain syndrome Nicotine dependence, cigarettes, uncomplicated COPD (chronic obstructive pulmonary disease) Insomnia Sleep disorder Obstructive sleep apnea PAF (paroxysmal atrial fibrillation) Essential (primary) hypertension Opioid dependence with unspecified opioid-induced disorder Peripheral vascular disease due to secondary diabetes Vitamin D deficiency Type 2 diabetes mellitus without complications Surgical History History of colonoscopy with polypectomy (04/30/23) History of colonoscopy (~04/30/23) History of incisional hernia repair History of inguinal hernia repair History of colostomy History of colostomy reversal History of dental surgery History of hernia repair Family History Family History Father No problems noted. Mother Lung cancer, Onset Age: 48 Brother No problems noted. Brother No problems noted. Brother No problems noted. Sister No problems noted. Social History Social History Household Members: Spouse Housing: Apartment Are you a primary child care assistant to a significant other at home: No Do you presently have visiting nurse or other home services: No Alcohol intake: never Comment: with patient at present Patient Tobacco Use Status: Current everyday Tobacco user Tobacco use type: Cigarette Cigarette Packs Per Day: 1 Cigarettes Per Day: 20.0 Years Smoked: 45 Smoked in Last 30 Days: Yes e-Cigarette/Vaping Use: Never Used Second Hand Smoke Exposure: Yes Use of substances other than those prescribed or required for medical reasons: No Substance Use Type: Marijuana Advance Directives: Yes Advance Directives on File: Yes Advance Directives Date on File: 04/25/22 service: No Current occupational status: disabled Current occupation: right handed Cognitive needs: No Hearing needs: No Vision needs: Yes (glasses) Physical Exam ED Vital Signs: Vital Signs - 24 hr 06/18/25 08:05 06/18/25 09:08 06/18/25 11:01 Temperature 97.9 F Pulse Rate 106 H 84 71 Respiratory Rate 18 20 12 Blood Pressure 151/79 H 125/83 133/80 Pulse Oximetry 97 94 94 Oxygen Delivery Method Room Air Room Air Room Air BMI result Body Mass Index 27.6 Appearance: Alert. Oriented X3. No acute distress. Eyes: Pupils equal, round and reactive to light. ENT: Pharynx normal. Does have a hoarse voice Neck: Normal inspection. Neck supple. CVS: Normal heart rate and rhythm. Pulses normal. Chest: ttp along costochondral border Respiratory: No respiratory distress. Breath sounds normal. Abdomen: Soft and nontender. Skin: Skin warm and dry. Normal skin color. Normal skin turgor. Extremities: No lower extremity edema. Neuro: Oriented X 3. No motor deficit. No sensory deficit. Medications Administered Discontinued Medications Generic Name Dose Route Start Last Admin Trade Name Freq PRN Reason Stop Dose Admin Al Hydroxide/Mg Hydroxide 15 ml 06/18/25 08:51 06/18/25 09:02 Magnesium Hydrox/Alum Hydrox 30 Ml Oral.Susp PO 06/18/25 08:52 15 ml ONCE ONE Administration Lactated Ringer's 1,000 mls @ 999 mls/hr 06/18/25 08:35 06/18/25 09:03 Lr IV 06/18/25 09:35 999 mls/hr .Q1H1M ONE Administration Iohexol 65 ml 06/18/25 09:35 06/18/25 09:35 Iohexol 350 Mg/Ml 100 Ml Infus..Btl IV 06/18/25 09:36 65 ml ONCE ONE Administration Lidocaine HCl 15 ml 06/18/25 08:51 06/18/25 09:03 Lidocaine Hcl Viscous 2 % 15 Ml Solution MUCOUS MEM 06/18/25 08:52 15 ml ONCE ONE Administration Pantoprazole Sodium 40 mg 06/18/25 08:51 06/18/25 09:03 Pantoprazole Sodium 40 Mg/10 Ml Vial IVPUSH 06/18/25 08:52 40 mg ONCE ONE Administration Medical Decision Making Medical Decision Making MDM Narrative: 59 yo male with PMH of opioid use disorder on suboxone, PAF on eliquis, chronic pain, COPD, DM2 here with c/o chest pain x 1 month worse with eating but no GIB symptoms reported not on PPI or antacids. He reports a 20lb weight loss and change in voice. At this time I am going to obtain CT scan of chest to evaluate for mass/esophagitis/lesion. I have ordered protonix and GI cocktail. Differential Diagnosis Differential Diagnoses: The differential diagnosis associated with the presentation includes esophagitis, mass, costochondritis, pain syndrome compliant with eliquis doubt VTE atypical symptoms doubt ACS Admission/Observation Consideration of admission/observation: Escalation of care including admission/observation considered labs reassuring able to eat and drink can follow up [facility] outpatient urgent EGD - Carlos A aware Consult Healthcare Provider Management of the patient was discussed with: [employer] Department message sent to Dr. Strauss 1051am. Lab Data MDM Lab Attestation statement: I reviewed the patient's lab results. 06/18/25 08:53 06/18/25 08:53 Labs: Lab Results 06/18/25 Range/Units 08:53 WBC 11.8 H (4.8-10.8) X10*3/uL RBC 5.43 (4.60-5.80) X10*6/uL Hgb 15.4 (14.0-18.0) g/dl Hct 46.6 (42.0-52.0) % MCV 85.8 (80.0-98.0) fL MCH 28.4 (27.0-33.0) pg MCHC 33.0 (31.0-36.0) g/dl RDW 15.4 (11.0-16.0) % Plt Count 217 (160-400) X10*3/uL MPV 9.3 L (9.4-12.4) fL Immature Gran % (Auto) 0.4 (0.0-0.4) % Neut % (Auto) 72.9 (45-73) % Lymph % (Auto) 18.6 L (20-40) % [place] % (Auto) 6.6 (2-11) % Eos % (Auto) 1.2 (0-4) % Baso % (Auto) 0.3 (0-2) % Lymph # (Auto) 2.2 (1.2-4.9) X10*3/uL [place] # (Auto) 0.8 (0.1-1.2) X10*3/uL Eos # (Auto) 0.1 (0.0-0.4) X10*3/uL Baso # (Auto) 0.0 (0.0-0.2) X10*3/uL Abs Immat Gran (auto) 0.05 H (0.00-0.03) X10*3/uL Absolute Neuts (auto) 8.6 H (2.0-8.3) x10*3/uL Absolute Nucleated RBC 0.000 (0.0-0.012) X10*3/uL Nucleated RBC % (auto) 0.0 (0.0-0.2) /100WBC Sodium 140 (135-145) mmol/L Potassium 4.2 (3.3-5.1) mmol/L Chloride 105 (96-108) mmol/L Carbon Dioxide 25 (22-29) mmol/L Anion Gap 14 (12-20) BUN 15 (9-16) mg/dL Creatinine 0.76 (0.5-1.4) mg/dL Estim Creat Clear Calc 106.8 Estimated GFR > 60 Random Glucose 178 H (60-115) mg/dL Calcium 9.3 (8.4-10.2) mg/dL Magnesium 2.2 (1.6-2.6) mg/dL Total Bilirubin 0.8 (0.0-1.0) mg/dL Direct Bilirubin 0.3 (0.0-0.5) mg/dL AST 17 (5-37) U/L ALT 8 (0-40) U/L Alkaline Phosphatase 66 (39-117) U/L Troponin I High Sens 3.2 (<3.5-35.0) ng/L NT-Pro-B Natriuret Pep 49.6 (<300) pg/mL Total Protein 6.8 (6.5-8.0) g/dL Albumin 4.3 (3.5-5.0) g/dL Lipase 16 (8-78) U/L TSH 0.52 (0.32-4.0) uIU/mL Independent Interpretation I performed an independent interpretation of an: EKG and CT Scan (likely esophageal lesion) Interpretation: Rate: 104 Rhythm: sinus tachycardia [place]: normal Normal P waves. Normal GEORGIE. Normal QRS complex. ST T wave : flat t wave aVL, no DARRICK qTC: 483 prior studies: no acute ischemia The study has been interpreted contemporaneously by me. . Radiology Impression Discussion of test interpretation with radiology: I have reviewed the radiologist's reading. External Record Review External record reviewed: Inpatient record and Outpatient record Prescription Management I considered prescription management with: Pain Medication and Other Discharge Plan Discharge Clinical Impression: Esophageal lesion, Esophagitis Patient Disposition: Home, Self-Care Instructions: Esophagitis (ED) Additional Instructions: labs reassuring CT scan shows inflammed esophagus but also possible lesion in esophagus. This needs an EGD - Dr. Strauss is aware and will fit you in as soon as possible please call office by Saturday afternoon if you have not received a call return for any worsening symptoms or concerns soft diet only until you have appointment Prescriptions: New pantoprazole 40 mg tablet,delayed release (DR/EC) 40 mg PO DAILY Qty: 30 0RF ondansetron 4 mg tablet,disintegrating 4 mg PO Q8H PRN (Reason: nausea and vomiting) Qty: 20 0RF No Action albuterol sulfate 90 mcg/actuation HFA aerosol inhaler 2 puff inhalation Q4-6H PRN (Reason: for wheezing) Qty: 8.5 2RF Multaq 400 mg tablet 400 mg PO BID Qty: 180 3RF Eliquis 5 mg tablet 5 mg PO BID Qty: 180 3RF diltiazem HCl 120 mg capsule,extended release 24hr 120 mg PO DAILY Qty: 90 3RF Jardiance 25 mg tablet 25 mg PO DAILY Qty: 90 3RF insulin glargine [Lantus Solostar U-100 Insulin] 100 unit/mL (3 mL) insulin pen 10 unit subcut QPM Qty: 15 0RF (DME) FreeStyle Maude 3 Plus Sensor Device See Rx Instructions .Route Qty: 3 11RF Rx Instructions: As directed (DME) FreeStyle Maude 3 [place] Misc See Rx Instructions .Route Qty: 1 0RF Rx Instructions: As directed (DME) Freestyle glucometer See Rx Instructions .Route .MEDSUPPLY Qty: 1 0RF Rx Instructions: As directed- BID (DME) alchohol wipes See Rx Instructions .Route .MEDSUPPLY Qty: 1 3RF Rx Instructions: As directed rosuvastatin 40 mg tablet 40 mg PO DAILY Qty: 90 3RF metformin 1,000 mg tablet 1,000 mg PO BID Qty: 180 0RF buprenorphine-naloxone [Suboxone] 4-1 mg film 1 film buccal Q24H Qty: 30 3RF Rx Instructions: place 1 strip/tab under (each) side of tongue (DME) Freestyle glucometer lancets See Rx Instructions .Route .MEDSUPPLY Qty: 1 0RF Rx Instructions: As directed- BID (DME) Freestyle glucometer strips 2 times per day See Rx Instructions .Route .MEDSUPPLY Qty: 1 0RF Rx Instructions: As directed- BID (DME) pen needle, diabetic [1st Tier Unifine Pentips] 32 gauge x 5/32 needle See Rx Instructions .Route Qty: 100 0RF Rx Instructions: As directed once daily polyethylene glycol 3350 [Gavilax] 17 gram/dose powder 17 g PO DAILY Qty: 510 2RF cholecalciferol (vitamin D3) [Vitamin D3] 25 mcg (1,000 unit) Capsule 2,000 unit PO DAILY cyclobenzaprine 5 mg tablet 5 mg PO Q8H PRN (Reason: Muscle Spasm) Qty: 20 0RF diclofenac sodium 3 % gel 1 appl topical BID Qty: 100 0RF lidocaine [Aspercreme (lidocaine)] 4 % adhesive patch,medicated 1 patch topical DAILY PRN (Reason: pain) Qty: 15 0RF Referrals: [facility] [Provider Group, Gastroenterology] Print Language: Cambodian
[2025-06-18 08:58] LABS: MANUAL DIFF FLAG NO
[2025-06-18 09:00] LABS: Hematocrit 46.6 % (42.0-52.0); Hemoglobin 15.4 g/dl (14.0-18.0); Imm Gran Abs Auto 0.05 X10*3/uL (0.00-0.03); Imm Gran Pct Auto 0.4 % (0.0-0.4); Lymphocytes Absolute Auto 2.2 X10*3/uL (1.2-4.9); Mean Corpuscular HGB Conc 33.0 g/dl (31.0-36.0); Mean Corpuscular Hemoglobin 28.4 pg (27.0-33.0); Mean Corpuscular Volume 85.8 fL (80.0-98.0); NRBC Abs Auto 0.000 X10*3/uL (0.0-0.012); NRBC Pct Auto 0.0 /100WBC (0.0-0.2); Platelet Count 217 X10*3/uL (160-400); Red Blood Count 5.43 X10*6/uL (4.60-5.80); White Blood Count 11.8 X10*3/uL (4.8-10.8)
[2025-06-18] MEDS: Magnesium Hydrox/Alum Hydrox 30 ML ORAL.SUSP 15 ML PO (09:02)
[2025-06-18] MEDS: Lidocaine HCl Viscous 2 % 15 ML SOLUTION MUCOUS MEM (09:03)
[2025-06-18] MEDS: Lactated Ringers 1,000 ML 999 ML IV (09:03)
[2025-06-18 09:08] VITALS: BP 125/83; PULSE 84; RESP 20; O2SAT 94
[2025-06-18 09:15] LABS: Alanine Aminotransferase 8 U/L (0-40); Albumin Level 4.3 g/dL (3.5-5.0); Alkaline Phosphatase 66 U/L (39-117); Anion Gap 14 (12-20); Aspartate Amino Transferase 17 U/L (5-37); Blood Urea Nitrogen 15 mg/dL (9-16); Calcium 9.3 mg/dL (8.4-10.2); Carbon Dioxide 25 mmol/L (22-29); Chloride 105 mmol/L (96-108); Creatinine Clr Calc Pharmacy 106.8; Estimated Glomerular Filt Rate > 60; Lipase 16 U/L (8-78); Magnesium 2.2 mg/dL (1.6-2.6); Potassium 4.2 mmol/L (3.3-5.1); Sodium 140 mmol/L (135-145); Total Protein 6.8 g/dL (6.5-8.0)
--- NOTE | 2025-06-18 09:17 | PC.NURSE ---
pt is alert and oriented, skin pwd, respirations even and unlabored, ls clear, pt reports for about 6-7 weeks is having constant midsternal chest pain, and difficulty swallowing food and even water-pt states that it really hurts low in the esophagus area, pt states that the food does not get stuck it just hurts when swallowing, states also loosing weight because he is not eating, vs stable, ns on the monitor
[2025-06-18 09:26] LABS: Troponin-I High Sensitivity 3.2 ng/L (<3.5-35.0)
[2025-06-18] MEDS: iohexoL 350 MG/ML 100 ML INFUS..BTL 65 ML IV (09:35)
[2025-06-18 10:29] LABS: NT Pro B Type Natriuretic Pept 49.6 pg/mL (<300)
[2025-06-18 11:01] VITALS: BP 133/80; PULSE 71; RESP 12; O2SAT 94
--- NOTE | 2025-06-18 11:36 | PC.NURSE ---
pt reports that his throat is feeling much better no pain at this time, but still having the chest pain at 9/10
[2025-06-18 11:46] VITALS: BP 133/80; PULSE 71; RESP 12; TEMP -17.7; TEMP 0; O2SAT 94
== END 2025-06-18 11:46 | disposition home or self-care (01) ==
PROVIDERS: Emergency Provider Emergency Medicine; PCP Internal Medicine
DX: K20.90 Esophagitis, unspecified without bleeding (principal); R07.89 Other chest pain; J44.9 Chronic obstructive pulmonary disease, unspecified; R11.0 Nausea; F17.210 Nicotine dependence, cigarettes, uncomplicated; Z79.4 Long term (current) use of insulin; Z79.899 Other long term (current) drug therapy; Z79.01 Long term (current) use of anticoagulants
CPT/HCPCS: 36415; 71260; 80048; 80076; 83690; 83735; 83880; 84443; 84484; 85025; 93005; 96361; 96374; 99285; J2470; J7120; Q9967

== ENCOUNTER → 2025-06-18 08:00 | Outpatient (BNV) | payer OTHER, SELFPAY | PROVIDERS: Emergency Provider Emergency Medicine; PCP Internal Medicine; Visit Provider Internal Medicine Cardiovascular Disease | DX: R00.0 Tachycardia, unspecified (principal) | CPT/HCPCS: 93010 ==

== ENCOUNTER → 2025-06-18 08:24 | Outpatient (BNV) | payer OTHER, SELFPAY | PROVIDERS: Emergency Provider Emergency Medicine; PCP Internal Medicine; Visit Provider Radiology Diagnostic Radiology | DX: I25.10 Atherosclerotic heart disease of native coronary artery without angina pectoris (principal); I34.81 Nonrheumatic mitral (valve) annulus calcification | CPT/HCPCS: 71260 ==

== ENCOUNTER 2025-06-23 10:16 | Day surgery (SDC) | payer OTHER, SELFPAY ==
--- NOTE | 2025-06-22 12:06 | HO.ANESPROP2 ---
Documented by User: Selena Whitmore NP 06/22/25 12:17 HPI - Anesthesia Eval Consult details Narrative: 59 yr old male for Upper Endoscopy [facility] ED visit 06/18/25 for chest wall casey, food getting stuck, troponins neg, EKG unremarkable; chest CT showed ?lesion esophagus. Opioid use disorder on suboxone Afib: follows with [facility] cardiology, last visit 06/15/25; noted states: He remains on a combination of diltiazem and Multaq. From the cardiac standpoint, he has got no recurrent palpitations or anything else . 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) Opioid dependence with unspecified opioid-induced disorder (Acute) PAF (paroxysmal atrial fibrillation) (Acute) Peripheral vascular disease due to secondary diabetes (Acute) Type 2 diabetes mellitus without complications (Acute) COPD (chronic obstructive pulmonary disease) (Acute) Obstructive sleep apnea (Acute) Sleep disorder (Acute) Insomnia (Acute) Vitamin D deficiency (Acute) Past Medical History Medical History Chronic pain syndrome Nicotine dependence, cigarettes, uncomplicated COPD (chronic obstructive pulmonary disease) Insomnia Sleep disorder Obstructive sleep apnea PAF (paroxysmal atrial fibrillation) Essential (primary) hypertension Opioid dependence with unspecified opioid-induced disorder Peripheral vascular disease due to secondary diabetes Vitamin D deficiency Type 2 diabetes mellitus without complications Family History Family History Father No problems noted. Mother Lung cancer, Onset Age: 48 Brother No problems noted. Brother No problems noted. Brother No problems noted. Sister No problems noted. Family history of problems with anesthesia: No Surgical History Surgical History History of colonoscopy with polypectomy (04/30/23) History of colonoscopy (~04/30/23) History of incisional hernia repair History of inguinal hernia repair History of colostomy History of colostomy reversal History of dental surgery History of hernia repair History of Problems with Anesthesia: No Social History Social History Household Members: Spouse Housing: Apartment Are you a primary acute care clinical nurse specialist to a significant other at home: No Do you presently have visiting nurse or other home services: No Alcohol intake: never Comment: with patient at present Patient Tobacco Use Status: Current everyday Tobacco user Tobacco use type: Cigarette Cigarette Packs Per Day: 1 Cigarettes Per Day: 20.0 Years Smoked: 45 e-Cigarette/Vaping Use: Never Used Second Hand Smoke Exposure: Yes Substance Use Type: Marijuana Advance Directives Date on File: 04/25/22 service: No Current occupational status: disabled Current occupation: right handed Cognitive needs: No Hearing needs: No Vision needs: Yes (glasses) Meds Allergies Allergy/AdvReac Type Severity Reaction Status Date / Time gabapentin AdvReac Intermediate dizziness Verified 06/18/25 08:11 Home Medications ?Medication ?Instructions ?Recorded ?Confirmed ?Last Taken ?Type cholecalciferol (vitamin D3) 25 2,000 unit PO DAILY 12/14/20 06/15/25 09/07/22 History mcg (1,000 unit) capsule (Vitamin D3) Exam Pertinent Lab Results Pertinent Lab Results: Laboratory Tests 06/18/25 08:53 WBC 11.8 H RBC 5.43 Hgb 15.4 Hct 46.6 Plt Count 217 Sodium 140 Potassium 4.2 BUN 15 Creatinine 0.76 Narrative Narrative: EKG 06/2025 Vent. Rate : 104 BPM Atrial Rate : 104 BPM P-R Int : 122 ms QRS Dur : 92 ms QT Int : 368 ms P-R-T Axes : 63 54 91 degrees QTcB Int : 483 ms Sinus tachycardia Nonspecific ST and T wave abnormality Abnormal ECG When compared with ECG of 02-Jun-2025 00:25, Premature ventricular complexes are no longer Present Premature atrial complexes are no longer Present Assessment and Plan Final Anesthetic Review Family History of Problems with Anesthesia: No History of Problems with Anesthesia: No Documented by User: Cata Lombardo MD 06/23/25 13:19 PMF Past Medical History Medical History Chronic pain syndrome Nicotine dependence, cigarettes, uncomplicated COPD (chronic obstructive pulmonary disease) Insomnia Sleep disorder Obstructive sleep apnea PAF (paroxysmal atrial fibrillation) Essential (primary) hypertension Opioid dependence with unspecified opioid-induced disorder Peripheral vascular disease due to secondary diabetes Vitamin D deficiency Type 2 diabetes mellitus without complications Family History Family History Father No problems noted. Mother Lung cancer, Onset Age: 48 Brother No problems noted. Brother No problems noted. Brother No problems noted. Sister No problems noted. Surgical History Surgical History History of colonoscopy with polypectomy (04/30/23) History of colonoscopy (~04/30/23) History of incisional hernia repair History of inguinal hernia repair History of colostomy History of colostomy reversal History of dental surgery History of hernia repair Social History Social History Household Members: Spouse Housing: Apartment Are you a primary acute care clinical nurse specialist to a significant other at home: No Do you presently have visiting nurse or other home services: No Alcohol intake: never Comment: with patient at present Patient Tobacco Use Status: Current everyday Tobacco user Tobacco use type: Cigarette Cigarette Packs Per Day: 1 Cigarettes Per Day: 20.0 Years Smoked: 45 e-Cigarette/Vaping Use: Never Used Second Hand Smoke Exposure: Yes Substance Use Type: Marijuana Advance Directives Date on File: 04/25/22 service: No Current occupational status: disabled Current occupation: right handed Cognitive needs: No Hearing needs: No Vision needs: Yes (glasses) Meds Allergies Allergy/AdvReac Type Severity Reaction Status Date / Time gabapentin AdvReac Intermediate dizziness Verified 06/18/25 08:11 Home Medications ?Medication ?Instructions ?Recorded ?Confirmed ?Last Taken ?Type cholecalciferol (vitamin D3) 25 2,000 unit PO DAILY 12/14/20 06/15/25 09/07/22 History mcg (1,000 unit) capsule (Vitamin D3) Exam Airway Mallampati Class: II (edentulous) TM Dist: >3cm Neck ROM: Limited Loose/Missing/Broken Teeth: Yes, Upper and Lower Heart: RRR Lungs: CTA BUT DISTANT Assessment and Plan Assessment Anesthesia Assessment: Anesthesia Plan Discussed and Chart Reviewed Final Anesthetic Review NPO: Yes ASA Class: III Final Preanesthetic Review: Meds/Allgs Chart Reviewed, Consent Obtained/Reviewed and Anes Risks/Benef Reviewed Patient Risk: Intermediate Procedure Risk: Intermediate Anesthetic Plan Anesthetic Plan: MAC: Disposition: Standard PACU
[2025-06-23 11:41] VITALS: BMI 27.7
--- NOTE | 2025-06-23 12:04 | P.HPSUR_ITS ---
Pre-Procedural Eval Section A - 24 Hr Update-Section A only Date of Service: 06/23/25 Section B - Complete if H&P > 30 days Chief Complaint: Disease of esophagus, unspecified Details of Present Illness: odynophagia and abn imaging of the esophagus Relevant Family History (Specify if Yes): No Relevant Social History: Tobacco Use Present Medications: see Short Stay Collaborative assessment Medical History: Significant History (Chronic pain syndrome Nicotine dependence, cigarettes, uncomplicated COPD (chronic obstructive pulmonary disease) Insomnia Sleep disorder Obstructive sleep apnea PAF (paroxysmal atrial fibrillation) Essential (primary) hypertension Opioid dependence with unspecified opioid- induced disorder Periphera) History of Previous Operations: Relevant previous surgery/procedure and date(s) (History of colonoscopy with polypectomy (04/30/23) History of colonoscopy (~04/30/23) History of incisional hernia repair History of inguinal hernia repair History of colostomy History of colostomy reversal History of dental surgery History of hernia repair) Allergies: Allergies Allergy/AdvReac Type Severity Reaction Status Date / Time gabapentin AdvReac Intermediate dizziness Verified 06/18/25 08:11 Surgical History Review of Systems Sugical H&P ROS: Negative: Constitution, Cardiovascular, Respiratory, Neurological, Psychiatric, Hem-Onc, Allergic/Immunologic, Gastrointestinal, Genitourinary, Musculoskeletal, Integumentary, Endocrine and Eyes/Ears/Nose/Throat Exam Surgical H&P Exam: Normal: HEENT, Normal: Heart, Normal: Lungs, Normal: Extremities, Normal: Abdomen, Normal: Skin and Normal: Neurological Plan Diagnosis/Plan: Unchanged I have reviewed the history and physical and performed a pertinent physical examination on my patient. No changes have occurred unless specified. Time Spent With Patient Time: Total time managing care of this patient today ____ minutes.
[2025-06-23] MEDS: Lactated Ringers 1,000 ML 100 ML IVCONT (12:06)
[2025-06-23 12:07] LABS: Glucose, Whole Blood 172 mg/dL (60-115)
--- NOTE | 2025-06-23 12:32 | P.OP_ITS ---
Operative Note Operative Note Date of Service: 06/23/25 Narrative: Procedure Description: EGD Indication: odynophagia Anesthesia: MAC FLEXIBLE TRANSORAL UPPER GASTROINTESTINAL ENDOSCOPY UPPER ENDOSCOPY Consent: Indications for the procedure and potential complications of bleeding, perforation, reaction to medications and missed diagnosis were discussed with the patient and informed consent was obtained. Instrument: Olympus GIF H 190 J mid size upper endoscope Monitoring: Vital signs and clinical assessment, continuous EKG monitoring, Pulse oximetry, Carbon Dioxide monitoring and blood pressure monitoring were done throughout the procedure. Procedure: The patient was placed in the left lateral decubitis position and pre-procedure medications were administered and a bite block was placed. The endoscope was inserted into the mouth and advanced under direct vision to the third part of duodenum. A careful inspection was made as the upper endoscope was withdrawn including a retroflexed examination of the proximal stomach; Findings and interventions are described below. Findings: Larynx:normal Esophagus: GE junction at 38 cm, diaphragm hiatus at 40 cm, with sliding hiatal hernia noted. [place] pink mucosa noted consistent with barretts, long segment. From 33 cm to 28 cm ulcerated lesion with slough and heaped up margins occupying about half the circumference of the esophagus. Bx were taken. Stomach: patchy erythema . Grade 2 flap valve on retroflexed examination of the cardia. 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
[2025-06-23 12:38] VITALS: BP 140/77; PULSE 60; RESP 18; TEMP 36.1; O2SAT 98
[2025-06-23 12:53] VITALS: BP 117/75; PULSE 82; RESP 18; TEMP 36.1; O2SAT 97
== END 2025-06-23 13:39 | disposition home or self-care (01) ==
PROVIDERS: Pathology Anatomic Pathology & Clinical Pathology; PCP Internal Medicine; Visit Provider Internal Medicine Gastroenterology
PROC: 0DJ08ZZ Inspection of Upper Intestinal Tract, Via Natural or Artificial Opening Endoscopic (ICD-10-PCS; CPT 43235; principal; 2025-06-23 13:50)
DX: K22.9 Disease of esophagus, unspecified (principal); K22.70 Barrett's esophagus without dysplasia; K44.9 Diaphragmatic hernia without obstruction or gangrene; D09.9 Carcinoma in situ, unspecified
CPT/HCPCS: 43239; 82947; 88305; 88313; 88341; 88342; 88360; J2003; J2250; J2704

== ENCOUNTER → 2025-06-23 10:16 | Outpatient (BNV) | payer OTHER, SELFPAY | PROVIDERS: PCP Internal Medicine; Visit Provider Internal Medicine Gastroenterology | DX: C15.9 Malignant neoplasm of esophagus, unspecified (principal); R13.10 Dysphagia, unspecified | CPT/HCPCS: 43239 ==

== ENCOUNTER 2025-06-24 08:23 | Outpatient (AMB) | payer OTHER, SELFPAY ==
--- NOTE | 2025-06-24 08:43 | MHC.PC.OV ---
Vital Signs 06/24/25 08:45 Height 5 ft 8 in Weight 185 lb 4 oz BMI 28.2 BP 130/68 Blood Pressure Location Lt brachial Position Sitting Pulse 93 Pulse Source Pulse Oximeter Temp 97.3 F Temp Source Temporal Artery Scan Pulse Oximetry (%) 98 Oxygen Delivery Method Room Air Intake Visit Reasons: [facility] 06/18 RESCHEDULE from 06/23 Intake Note: Patient is here to follow-up after a visit the emergency department at [facility] on 06/18/25. Mill Manager Required: No Supply Clerk: Present Accompanied by: Spouse Allergies gabapentin Adverse Reaction (Intermediate, Verified 06/24/25 08:45) dizziness Tobacco use date assessed: 06/24/25 Dental Screening Dental Screen Date: 03/11/25 HPI [facility] 06/18 RESCHEDULE from 06/23 HPI Details 59-year-old male presents to the office for a follow-up visit. Patient has been experiencing a lot of chest pain and has been to the emergency room at least 4 times in the past few weeks. He is having difficulty swallowing and weight loss. Endoscopy done urgently after the last ER visit strongly raise the possibility of esophageal cancer. Biopsy results are pending. [facility] Medical History (Updated 06/24/25 @ 09:34 by Kris Ivory MD) Esophageal cancer Chronic pain syndrome Nicotine dependence, cigarettes, uncomplicated COPD (chronic obstructive pulmonary disease) Insomnia Sleep disorder Obstructive sleep apnea PAF (paroxysmal atrial fibrillation) Essential (primary) hypertension Opioid dependence with unspecified opioid-induced disorder Peripheral vascular disease due to secondary diabetes Vitamin D deficiency Type 2 diabetes mellitus without complications Surgical History (Updated 06/24/25 @ 08:51 by PACO Malcolm) History of endoscopy History of colonoscopy with polypectomy (04/30/23) History of colonoscopy (~04/30/23) History of incisional hernia repair History of inguinal hernia repair History of colostomy History of colostomy reversal History of dental surgery History of hernia repair Family History Father No problems noted. Mother Lung cancer, Onset Age: 48 Brother No problems noted. Brother No problems noted. Brother No problems noted. Sister No problems noted. Social History Household Members: Spouse Housing: Apartment Are you a primary resident care associate to a significant other at home: No Do you presently have visiting nurse or other home services: No Alcohol intake: never Comment: with patient at present Patient Tobacco Use Status: Current everyday Tobacco user Tobacco use type: Cigarette Cigarette Packs Per Day: 1 Cigarettes Per Day: 20.0 Years Smoked: 45 e-Cigarette/Vaping Use: Never Used Second Hand Smoke Exposure: Yes Substance Use Type: Marijuana Advance Directives Date on File: 04/25/22 service: No Current occupational status: disabled Current occupation: right handed Cognitive needs: No Hearing needs: No Vision needs: Yes (glasses) Questionnaire Thrive Questionnaire Date Thrive assessed: 03/11/25 WANDER-7 AMB Questionnaire WANDER-7 Date WANDER - 7 assessed: 03/11/25 Source: Developed by Drs. Vic Ragsdale, Carmencita Joshua, Joce Boswell and colleagues, with an educational aleja from [employer]. Physical exam (Primary Care) Vital Signs: Last Vital Signs Temp 97.3 F 06/24/25 08:45 Pulse 93 06/24/25 08:45 BP 130/68 06/24/25 08:45 Pulse Ox 98 06/24/25 08:45 Oxygen Delivery Method Room Air 06/24/25 08:45 BMI result Body Mass Index 28.2 Tobacco/Smoking Status: Tobacco use Status Tobacco use date assessed 06/24/25 06/24/25 08:54 Patient Tobacco Use Status Current everyday Tobacco 06/24/25 08:44 Tobacco use type Cigarette 06/24/25 08:44 e-Cigarette/Vaping Use Never Used 06/24/25 08:44 Thrive Assessment: Date of Thrive Assessment Date Thrive assessed 03/11/25 06/24/25 08:44 Const General: cooperative and healthy appearing Nutritional Appearance: well nourished Orientation/consciousness: patient oriented x3 Limitations: no limitations HENMT Head: Yes normal to inspection Eyes General: appearance normal, both eyes and all related structures Neck Neck: Yes normal visual inspection Chest Chest palpation & inspection: normal palpation of entire chest wall Resp Effort & Inspection: normal respiratory effort Neuro General: patient oriented x3 Results AMB Hemoglobin A1c AMB Hemoglobin A1c 7.1 % Last Edit by PACO Malcolm on 06/24/25 09:02 Results Reviewed Results Reviewed: Laboratory Last Values Hgb A1c (Clinic) 7.1 % (4.0-6.0) H 06/24/25 08:44 Coding Level of Care Code Est Pt Level 4 (31602) Complex EM visit Add On G2211 Diagnoses Esophageal cancer C15.9 Assessment & Plan Assessment & Plan (1) Esophageal cancer: Code(s): C15.9 - Malignant neoplasm of esophagus, unspecified Category: Medical Plan: Biopsy results are pending. Continue liquid diet. Referral for Oncology done. Orders: Orders AMB Hemoglobin A1c Today E11.9 - Type 2 diabetes mellitus without complications
[2025-06-24 08:45] VITALS: BP 130/68; PULSE 93; TEMP 36.3; O2SAT 98; BMI 28.2
== END 2025-06-24 09:20 | disposition home or self-care (01) ==
LOC: HO.HMCH 08:24
PROVIDERS: PCP Internal Medicine; Visit Provider Internal Medicine
DX: E11.9 Type 2 diabetes mellitus without complications (principal); C15.9 Malignant neoplasm of esophagus, unspecified

== ENCOUNTER → 2025-06-24 08:23 | Outpatient (BNVA) | payer OTHER, SELFPAY | PROVIDERS: PCP Internal Medicine; Visit Provider Internal Medicine | DX: E11.9 Type 2 diabetes mellitus without complications (principal); C15.9 Malignant neoplasm of esophagus, unspecified | CPT/HCPCS: 83036; 99212 ==

== ENCOUNTER → 2025-07-02 13:25 | Outpatient (BNV) | payer OTHER, SELFPAY | PROVIDERS: PCP Internal Medicine; Visit Provider Internal Medicine Medical Oncology | DX: C15.5 Malignant neoplasm of lower third of esophagus (principal); G89.3 Neoplasm related pain (acute) (chronic) | CPT/HCPCS: 99204 ==

== ENCOUNTER 2025-07-25 03:01 | Inpatient (IN) | payer OTHER, SELFPAY ==
--- OUTSIDE RECORDS SUMMARY | 2025-07-21 07:19 | XMS_ITS | Encounter Summary ---
Author Organization [facility] Address [address] [place] [address] Care Team Providers Care Starch Mangle Tender Name Role Phone Unavailable Primary Care Provider Unavailabl e Reason for Referral * Imaging (Routine) - Pending Review Specialty Diagnoses / Procedures Referred By [facility] Referred To Contact Radiology Diagnoses Esophagus cancer (CMS/HCC V24, CMS/HCC V28) Procedures PET CT Skull to Mid Thigh Initial Altagracia Hernandez MD [address] [place] [address] ATTN: HEMATOLOGY/[place] [address] Phone: tel: fax: [facility] Referral ID Status Reason Start Date Expiration Date V isits Requested Visits Authorized [id number] Pending Review 07/21/2025 07/21/2026 1 1 Reason for Visit * Imaging (Routine) - Pending Review Specialty Diagnoses / Procedures [facility] Referred To Contact Radiology Diagnoses Esophagus cancer (CMS/HCC V24, [facility]/HCC V28) Procedures PET CT Skull to Mid Thigh Initial Altagracia Hernandez MD [address] [place] [address] ATTN: HEMATOLOGY/[place] [address] Phone: tel: fax: [facility] Referral ID Status Reason Start Date Expiration Date V isits Requested Visits Authorized [id number] Pending Review 07/21/2025 07/21/2026 1 1 Encounter Details Date Type Department Care Team (Latest Contact Info) Description 07/21/2025 7:19 AM EST Hospital Encounter [facility] PET Scan [address] [place] [id number] Esophagus cancer (CMS/HCC V24, CMS/HCC V28) Social History Tobacco Use Types Packs/Day Years Used Date Smoking Tobacco: Never Assessed Sex and Gender Information Value Date Recorded Sex Assigned at Not on file Legal Sex Male 10:44 AM EST Gender Identity Not on file Sexual Orientation Not on file documented as of this encounter Plan of Treatment Not on file documented as of this encounter Procedures Procedure Name Priority Date/Time Associated Diagnosis Comments PET CT SKULL TO MID THIGH INITIAL Routine 07/21/2025 9:02 AM EST Esophagus cancer (CMS/HCC V24, CMS/HCC V28) documented in this encounter Results * PET CT Skull to Mid Thigh Initial (07/21/2025 9:02 AM EST) Anatomical Region Laterality Modality Body Radiographic Josie ging 07/23/2025 3:50 AM EST Impressions 07/23/2025 5:06 AM EST 1. FDG avid mid esophageal mass in keeping with biopsy-proven esophageal malignancy 2. FDG avid retrotracheal/right upper paratracheal, paraesophageal and gastrohepatic/GE junction lymph nodes suspicious for metastatic disease 3. FDG avid lytic lesions involving the left anterior first rib and left posterior acetabulum suspicious for metastatic disease. Given the degree of cortical destruction of the posterior column, consider orthopedic evaluation to exclude impending fracture. 4. Focal FDG activity involving the left cervical paraspinal muscle which may represent metastatic disease 5. Nonspecific activity at the base of the tongue. Correlation with direct visualization is recommended. Please note: The CT was acquired at a low radiation dose settings. The images are of nondiagnostic quality and used solely for purposes of attenuation correction and slice localization for the PET scan. If a diagnostic CT study is desired it must be ordered separately. -------- FINAL REPORT -------- Dictated By: Jessi Rios Dictated Date: 07/23/2025 03:50 ET Assigned Physician: Jessi Rios Reviewed and Electronically Signed By: Jessi Rios Signed Date: 07/23/2025 05:06 ET Workstation ID: [id number] Transcribed By: Self Edit Transcribed Date: 07/23/2025 03:50 ET Narrative 07/23/2025 5:06 AM EST INDICATION: ESOPHAGUS CANCER TECHNIQUE: FDG PET-CT imaging was performed from the skull bases through the thighs in a single acquisition with data set reconstructed in axial, coronal, and sagittal planes at the computer workstation with fused data from both the PET imaging study and attenuation correction CT. The CT portion of the examination was done strictly for attenuation correction and is not a true diagnostic CT examination. DLP: 1126 mGy-cm Radiopharmaceutical: 13.2 mCi of F-18 FDG IV. Blood glucose: 134 mg/dl. COMPARISON: Outside chest CT June 2025 FINDINGS: HEAD AND NECK: Nonspecific activity at the base of the tongue SUV max 3.4. No significant FDG avid cervical or supraclavicular lymphadenopathy. THORAX: FDG avid retrotracheal/right upper paratracheal lymph node SUV max 6. FDG avid paraesophageal lymph node SUV max 4.3. Right paratracheal SUV max 2, AP window SUV Max 2.3 and subcarinal SUV max 2.3 lymph nodes without significant FDG activity (mediastinal blood pool SUV Max 2.9). No significant hilar activity. FDG avid mid esophageal mass SUV max 6.7 in keeping with biopsy-proven esophageal malignancy. ABDOMEN/PELVIS: FDG avid gastrohepatic/GE junction lymph node SUV max 4.2. Nonspecific diffuse bowel activity. Postsurgical change along the abdominal wall. Low-attenuation lesions in both kidneys without significant FDG activity. Postsurgical appearance of the colon. MUSCULOSKELETAL: Focal FDG activity along the left cervical paraspinal muscle SUV max 4.3. FDG avid lytic lesion involving the left anterior first rib SUV max 3.5 and along the posterior column of the acetabulum SUV max 10 point 9. Asymmetric activity involving the right inferior iliac bone SUV max 2.1. Asymmetric activity involving the left shoulder joint SUV Max 3.8 which may represent focal tenosynovitis or inflammatory changes. Heterogeneous bone marrow activity of the spine without a definite osseous lytic lesion identified. Procedure Note Jessi Rios MD - 07/23/2025 INDICATION: ESOPHAGUS CANCER TECHNIQUE: FDG PET-CT imaging was performed from the skull bases throughthe thighs in a single acquisition with data set reconstructed in axial,coronal, and sagittal planes at the computer workstation with fused datafrom both the PET imaging study and attenuation correction CT. The CTportion of the examination was done strictly for attenuation correctionand is not a true diagnostic CT examination. DLP: 1126 mGy-cm Radiopharmaceutical: 13.2 mCi of F-18 FDG IV. Blood glucose: 134 mg/dl. COMPARISON: Outside chest CT June 2025 FINDINGS: HEAD AND NECK: Nonspecific activity at the base of the tongue SUV max 3.4.No significant FDG avid cervical or supraclavicular lymphadenopathy. THORAX: FDG avid retrotracheal/right upper paratracheal lymph node SUV max6. FDG avid paraesophageal lymph node SUV max 4.3. Right paratrachealSUV max 2, AP window SUV Max 2.3 and subcarinal SUV max 2.3 lymph nodeswithout significant FDG activity (mediastinal blood pool SUV Max 2.9). Nosignificant hilar activity. FDG avid mid esophageal mass SUV max 6.7 in keeping with biopsy-provenesophageal malignancy. ABDOMEN/PELVIS: FDG avid gastrohepatic/GE junction lymph node SUV max4.2. Nonspecific diffuse bowel activity. Postsurgical change along theabdominal wall. Low-attenuation lesions in both kidneys withoutsignificant FDG activity. Postsurgical appearance of the colon. MUSCULOSKELETAL: Focal FDG activity along the left cervical paraspinalmuscle SUV max 4.3. FDG avid lytic lesion involving the left anterior first rib SUV max 3.5and along the posterior column of the acetabulum SUV max 10 point 9.Asymmetric activity involving the right inferior iliac bone SUV max 2.1.Asymmetric activity involving the left shoulder joint SUV Max 3.8 whichmay represent focal tenosynovitis or inflammatory changes. Heterogeneous bone marrow activity of the spine without a definite osseouslytic lesion identified. IMPRESSION: 1. FDG avid mid esophageal mass in keeping with biopsy-proven esophagealmalignancy 2. FDG avid retrotracheal/right upper paratracheal, paraesophageal andgastrohepatic/GE junction lymph nodes suspicious for metastatic disease 3. FDG avid lytic lesions involving the left anterior first rib and leftposterior acetabulum suspicious for metastatic disease. Given the degreeof cortical destruction of the posterior column, consider orthopedicevaluation to exclude impending fracture. 4. Focal FDG activity involving the left cervical paraspinal muscle whichmay represent metastatic disease 5. Nonspecific activity at the base of the tongue. Correlation withdirect visualization is recommended. Please note: The CT was acquired at a low radiation dose settings. The images are ofnondiagnostic quality and used solely for purposes of attenuationcorrection and slice localization for the PET scan. If a diagnostic CTstudy is desired it must be ordered separately. -------- FINAL REPORT -------- Dictated By: Jessi Rios Dictated Date: 07/23/2025 03:50 ET Assigned Physician: Jessi Rios Reviewed and Electronically Signed By: Jessi Rios Signed Date: 07/23/2025 05:06 ET Workstation ID: [id number] Transcribed By: Self Edit Transcribed Date: 07/23/2025 03:50 ET us Altagracia Hernandez MD [facility] PROCEDURES Final Result documented in this encounter Visit Diagnoses Diagnosis Esophagus cancer (CMS/HCC V24, CMS/HCC V28) Malignant neoplasm of esophagus, unspecified site documented in this encounter Administered Medications Inactive Administered Medications - up to 3 most recent administrations Medication Order MAR Action Action Date Dose Rate Site F-18 FDG pet diag radio-isotope injection 13.2 millicurie 13.2 millicurie, intravenous, Once in imaging, Starting on Sat07/21/25 at 0745, For 1 dose Given 07/21/2025 7:45 AM EST 13.2 millicuries documented in this encounter Orders Medications Ordered That Pedro Pablo ht Not Have Been Administered Count Last Ordered Date First Ordered Date F-18 FDG pet diag radio-isot ope injection 13.2 millicurie 1 07/21/2025 documented in this encounter
[2025-07-25] VITALS (7 sets, daily range): BP systolic 103–138; BP diastolic 59–76; PULSE 55–88; RESP 16–20; TEMP 36.1–36.8; O2SAT 97–100; BMI 25.9
--- NOTE | ~2025-07-25 | XR_ITS ---
EXAMINATION: XR CHEST CLINICAL INFORMATION: picc LINE PLACEMENT COMPARISON: Previous chest x-ray from yesterday TECHNIQUE: Frontal view of the chest was obtained. FINDINGS: New right upper extremity PICC line with tip projecting over the distal SVC. The lungs are clear. No consolidation or pulmonary edema. No pleural effusion or pneumothorax. Cardiac and mediastinal contours are normal. Degenerative changes of the spine. XR/XR chest 1V IMPRESSION: Right upper extremity PICC line tip projects over distal SVC. PICC line may be used. Electronically signed by: Cata Dudley MD 07/26/2025 04:16 PM [facility]
--- NOTE | ~2025-07-25 | CT_ITS ---
EXAMINATION: CT ABDOMEN AND PELVIS WITHOUT CONTRAST CLINICAL INFORMATION: verify mesh placement, preprocedure planning for PEG tube placement COMPARISON: 05/16/2023 TECHNIQUE: Multidetector volumetric imaging was performed from the superior aspect of the liver through the pubic symphysis. Sagittal and coronal reformatted images were obtained on the technologist's workstation. This CT examination was performed using dose optimization techniques as appropriate, variously including the following: *Automated exposure control *Adjustment of mA and/or kV according to patient size (this includes techniques or standardized protocols for targeted exams where dose is matched to indication/reason for exam; i.e. extremities or head) *Use of iterative reconstruction technique FINDINGS: LUNG BASES: The visualized lung bases are unremarkable. LIVER, GALLBLADDER, AND BILIARY TREE: Again seen is a punctate calcification in the dome of the liver. Liver demonstrates decreased attenuation. The gallbladder is unremarkable with no evidence of radiopaque gallstones, gallbladder wall thickening, or obvious pericholecystic inflammatory changes. PANCREAS: Unremarkable. SPLEEN: Unremarkable. ADRENAL GLANDS: Unremarkable. KIDNEYS AND URETERS: Again seen are simple renal cysts bilaterally. Exophytic cyst in the anterior mid right kidney has decreased in size from 5 cm down to 2.2 cm. There are no stones. There is no hydronephrosis BLADDER: Unremarkable. GASTROINTESTINAL TRACT: The small and large bowel are unremarkable. The appendix is unremarkable. ABDOMINAL WALL: Again seen are postsurgical changes related to prior hernia repair. Metal clips related to mesh are seen extending 27 cm down from the epigastric region at the inferior tip of the xiphoid process. Metal clips from the mesh extending down to the lower abdomen, 10 cm below the umbilicus. Mesh extends left of midline in the upper abdomen 5.5 cm. At the level of the umbilicus, clip from mesh is visible 14 cm left of midline. In the upper abdomen, mesh is seen extending right of midline up to 9 cm. There is also a bandlike area of increased attenuation in the deep subcutaneous soft tissues, superficial to the mesh, measuring 2.6 cm. This could represent heterotopic ossification. Umbilical/supraumbilical hernia containing adipose tissue is again seen. LYMPH NODES: Normal. VASCULAR: Moderate and severe vascular opacifications are present. PELVIC VISCERA: Unremarkable. OSSEOUS STRUCTURES: Moderate disc space narrowing and endplate ossified center present at L5-S1. There are marginal osteophytes involving both hip joints with mild narrowing on the right and moderate superior lateral joint space narrowing on the left. Mild sclerosis and osteophytes are present in the SI joints. CT/CT abdomen pelvis wo IV con IMPRESSION: Postsurgical changes related to hernia repair, detailed above in the ABDOMINAL WALL section. Small umbilical/supra-umbilical hernia containing adipose tissue. Stable. Hip osteoarthritis, mild on the right and moderate on the left. Moderate degenerative disc disease at L5-S1. Cholecystectomy. Fleischner guidelines were followed. Electronically signed by: Shreyas Lucero MD 07/26/2025 12:26 PM [facility]
--- NOTE | ~2025-07-25 | XR_ITS ---
CLINICAL HISTORY: DYSPHAGIA 2 view chest x-ray. Comparison: CT/REG/SR - CT CHEST WITH IV CONTRAST - 06/18/25 09:35 EDT CR/SR - XR CHEST 2 VIEWS - 06/09/25 08:43 EDT Findings: Normal lung volumes. Lungs are clear. No pneumothorax or pleural effusion. Heart size normal. No passive venous congestion. No midline shift or tracheal deviation. No acute fracture. Impression: 1. No acute cardiopulmonary disease. This document has been electronically signed by: Colin Hernandez MD on 07/25/2025 05:22:17
[2025-07-25 03:52] LABS: Hematocrit 42.3 % (42.0-52.0); Hemoglobin 13.6 g/dl (14.0-18.0); MANUAL DIFF FLAG NO; Red Blood Count 4.90 X10*6/uL (4.60-5.80); White Blood Count 12.2 X10*3/uL (4.8-10.8)
[2025-07-25 03:53] LABS: Imm Gran Abs Auto 0.06 X10*3/uL (0.00-0.03); Imm Gran Pct Auto 0.5 % (0.0-0.4); Lymphocytes Absolute Auto 2.1 X10*3/uL (1.2-4.9); Mean Corpuscular HGB Conc 32.2 g/dl (31.0-36.0); Mean Corpuscular Hemoglobin 27.8 pg (27.0-33.0); Mean Corpuscular Volume 86.3 fL (80.0-98.0); NRBC Abs Auto 0.000 X10*3/uL (0.0-0.012); NRBC Pct Auto 0.0 /100WBC (0.0-0.2); Platelet Count 303 X10*3/uL (160-400)
--- OUTSIDE RECORDS SUMMARY | 2025-07-25 04:08 | XMS_ITS | Clinical Summary ---
Author Organization [facility] Address [address] [place] [address] Phone Care Team Providers Care Radar Mechanic Name Role Phone Unavailable Primary Care Provider Unavailabl e Encounters Date Type Department Care Team Description 07/21/2025 7:19 AM EST Hospital Encounter [facility] PET Scan [address] [place] [address] Esophagus cancer (CMS/HCC V24, CMS/HCC V28) from Last 3 Months Social History Tobacco Use Types Packs/Day Years Used Date Smoking Tobacco: Never Assessed Sex and Gender Information Value Date Recorded Sex Assigned at Not on file Legal Sex Male 10:44 AM EST Gender Identity Not on file Sexual Orientation Not on file Plan of Treatment Health Maintenance Due Date Last Done Comments Colorectal Cancer Screening: Colonoscopy 1963 DTaP,Tdap,and Td Vaccines (1 - Tdap) 1982 Pneumococcal Vaccine: 50+ Years (1 of 1 - PCV) 2013 Zoster Vaccines (1 of 2) 2013 Depression Screening 09/02/2024 COVID-19 Vaccine ( season) 2025 08/30/2022, 03/12/2022, 10/10/2021, Additional history exists Influenza Vaccine (#1) 2025 Cholesterol Screening (Lipid Panel) 07/21/2025 HIV Screening 07/21/2025 Hepatitis C Screening 07/21/2025 Social Influencers of Health Screening 07/21/2025 RSV Immunization Adult Patients (1 - 1-dose 75+ series) 2038 HIB Vaccines Aged Out No longer eligi ble based on patient's age to complete this topic HPV Vaccines Aged Out No longer eligi ble based on patient's age to complete this topic Hepatitis A Vaccines Aged Out No long er eligible based on patient's age to complete this topic Hepatitis B Vaccines Aged Out No long er eligible based on patient's age to complete this topic IPV Vaccines Aged Out No longer eligi ble based on patient's age to complete this topic MMR Vaccines Aged Out No longer eligi ble based on patient's age to complete this topic Meningococcal ACWY Vaccine Aged Out N o longer eligible based on patient's age to complete this topic Meningococcal B Vaccine Aged Out No l onger eligible based on patient's age to complete this topic RSV Immunization Patients Under 20 months Aged Out No longer eligible based on patient's age to complete this topic Varicella Vaccines Aged Out No longer eligible based on patient's age to complete this topic Procedures Procedure Name Priority Date/Time Associated Diagnosis Comments PET CT SKULL TO MID THIGH INITIAL Routine 07/21/2025 9:02 AM EST Esophagus cancer (CMS/[facility] V24, CMS/[facility] V28) from Last 3 Months Results * PET CT Skull to Mid [...] Dictated Date: 07/23/2025 03:50 ET Assigned Physician: Gabriel, Jessi Reviewed and Electronically Signed By: Jessi Rios Signed Date: 07/23/2025 05:06 ET Workstation ID: [id number] Transcribed By: Self Edit Transcribed Date: 07/23/2025 [...] Signed Date: 07/23/2025 05:06 ET Workstation ID: [id number] Transcribed By: Self Edit Transcribed Date: 07/23/2025 03:50 ET Altagracia Hernandez MD [facility] PROCEDURES Final Result from Last 3 Months Insurance [facility] Member Subscriber Plan / Payer (Ef fective 2017-Present) Name:BRAN RAMEY Relation to Subscriber:Self Name:Bran Ramey Payer ID:[id number] Group ID:[id number] Type:Not on file Address: [facility] [address] [id number]
[2025-07-25 04:09] LABS: Alanine Aminotransferase 7 U/L (0-40); Albumin Level 4.6 g/dL (3.5-5.0); Alkaline Phosphatase 77 U/L (39-117); Anion Gap 25 (12-20); Aspartate Amino Transferase 21 U/L (5-37); Blood Urea Nitrogen 18 mg/dL (9-16); Calcium 9.7 mg/dL (8.4-10.2); Carbon Dioxide 18 mmol/L (22-29); Chloride 104 mmol/L (96-108); Creatinine Clr Calc Pharmacy 101.4; Estimated Glomerular Filt Rate > 60; Potassium 3.6 mmol/L (3.3-5.1); Sodium 143 mmol/L (135-145); Total Protein 7.5 g/dL (6.5-8.0)
[2025-07-25 04:49] LABS: Venous Blood Gas Refer to POC result
[2025-07-25 04:51] LABS: VBG HCO3 19 mmol/L (22-26); VBG O2 % Saturation 65.0 %
[2025-07-25] MEDS: Lactated Ringers 1,000 ML 999 ML IV ×2 (04:51→07:38)
[2025-07-25 05:01] LABS: Lipase 15 U/L (8-78); Magnesium 2.0 mg/dL (1.6-2.6)
--- NOTE | 2025-07-25 05:03 | ECG_ITS ---
Test Reason : CP Blood Pressure : */* mmHG Vent. Rate : 74 BPM Atrial Rate : 74 BPM P-R Int : 146 ms QRS Dur : 92 ms QT Int : 420 ms P-R-T Axes : 72 52 28 degrees QTcB Int : 466 ms Normal sinus rhythm Normal ECG When compared with ECG of 18-Jun-2025 08:03, Nonspecific T wave abnormality now evident in Inferior leads Referred By: Jimena Medel Electronically Signed By: JOHN ROLAND
--- NOTE | 2025-07-25 06:52 | ED.GENADULT ---
HPI - General Adult General Chief complaint: Weakness Stated complaint: difficulty swallowing Time Seen by Provider: 07/25/25 04:08 Source: patient and family Mode of arrival: ambulatory Limitations: no limitations History of Present Illness ED Provider: Dr. Jimena Medel HPI narrative: 59-year-old male with a history of recently diagnosed esophageal adenocarcinoma presenting with dysphagia and inability to tolerate even liquids today. Admits that these symptoms have been progressively worsening over the last several weeks but in the last 3 days he has been unable to tolerate anything solid. Attempted to eat noodle soup on and unfortunately vomited most of it up shortly thereafter. Has been able to drink about 200 cc of water since that time but describes great difficulty and pain with swallowing. He is in the process of being staged for the cancer and had a PET scan at [facility] this week. He does not know the results yet. Should be getting results this week through his oncologist. He denies associated fever, shortness of breath, cough or cold-type symptoms, lower abdominal pain, bowel changes or urinary complaints. Unable to tolerate many of his medications over the last 24 hours. Takes oxycodone at baseline for chronic pain. Related Data Home Medications ?Medication ?Instructions ?Recorded ?Confirmed cholecalciferol (vitamin D3) 25 2,000 unit PO DAILY 12/14/20 07/02/25 mcg (1,000 unit) capsule (Vitamin D3) Previous Rx's ?Medication ?Instructions ?Recorded albuterol sulfate 90 mcg/actuation 2 puff inhalation Q4-6H PRN for 03/24/24 aerosol inhaler wheezing #8.5 ea apixaban 5 mg tablet (Eliquis) 5 mg PO BID #180 tabs 11/23/24 diltiazem HCl 120 mg 120 mg PO DAILY #90 caps 11/23/24 capsule,extended release 24 hr empagliflozin 25 mg tablet 25 mg PO DAILY #90 tabs 11/23/24 (Jardiance) 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 sensor (FreeStyle #3 ea 03/11/25 Maude 3 Plus Sensor device) 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,evp operations,cont #1 ea 03/11/25 (FreeStyle Maude 3 Muse) Freestyle glucometer #1 ea 03/23/25 rosuvastatin 40 mg tablet 40 mg PO DAILY #90 tabs 04/15/25 Freestyle glucometer lancets #1 ea 05/19/25 Freestyle glucometer strips 2 #1 ea 05/19/25 times per day polyethylene glycol 3350 17 17 g PO DAILY #510 grams 05/28/25 gram/dose oral powder (Gavilax) cyclobenzaprine 5 mg tablet 5 mg PO Q8H PRN Muscle Spasm #20 06/09/25 tabs diclofenac sodium 3 % topical gel 1 appl topical BID #100 grams 06/16/25 lidocaine 4 % topical patch 1 patch topical DAILY PRN pain #15 06/16/25 (Aspercreme (lidocaine)) ea ondansetron 4 mg disintegrating 4 mg PO Q8H PRN nausea and 06/18/25 tablet vomiting #20 tabs sucralfate 100 mg/mL oral 10 ml PO QIDACHS #1,000 mL 06/23/25 suspension (Carafate) dronedarone 400 mg tablet (Multaq) 400 mg PO BID #180 tabs 06/24/25 alchohol wipes #1 ea 07/12/25 insulin glargine 100 unit/mL (3 10 unit (0.1 mL) subcut QPM #15 mL 07/12/25 mL) subcutaneous pen (Lantus Solostar U-100 Insulin) oxycodone 5 mg tablet 5 mg PO Q6H PRN Breakthrough Pain, 07/12/25 Severe #60 tabs pantoprazole 40 mg tablet,delayed 40 mg PO DAILY #30 tabs 07/12/25 release pen needle, diabetic 32 gauge x #100 ea 07/12/25 (1st Tier Unifine Pentips) metformin 1,000 mg tablet 1,000 mg PO BID #180 tabs 07/24/25 Allergies Allergy/AdvReac Type Severity Reaction Status Date / Time gabapentin AdvReac Intermediate dizziness Verified 07/25/25 03:11 Review of Systems Review of Systems: as per HPI, full review of systems performed and negative but for the above mentioned pertinent positives and negatives. FOR[facility]LY [facility] Past Medical History Medical History Esophageal cancer Chronic pain syndrome Nicotine dependence, cigarettes, uncomplicated COPD (chronic obstructive pulmonary disease) Insomnia Sleep disorder Obstructive sleep apnea PAF (paroxysmal atrial fibrillation) Essential (primary) hypertension Opioid dependence with unspecified opioid-induced disorder Peripheral vascular disease due to secondary diabetes Vitamin D deficiency Type 2 diabetes mellitus without complications Surgical History History of endoscopy History of colonoscopy with polypectomy (04/30/23) History of colonoscopy (~04/30/23) History of incisional hernia repair History of inguinal hernia repair History of colostomy History of colostomy reversal History of dental surgery History of hernia repair Family History Family History Father No problems noted. Mother Lung cancer, Onset Age: 48 Brother No problems noted. Brother No problems noted. Brother No problems noted. Sister No problems noted. Social History Social History Household Members: Spouse Housing: Apartment Are you a primary career developer to a significant other at home: No Do you presently have visiting nurse or other home services: No Alcohol intake: never Comment: with patient at present Patient Tobacco Use Status: Current everyday Tobacco user Tobacco use type: Cigarette Cigarette Packs Per Day: 1 Years Smoked: 45 Smoked in Last 30 Days: Yes e-Cigarette/Vaping Use: Never Used Second Hand Smoke Exposure: Yes Use of substances other than those prescribed or required for medical reasons: No Substance Use Type: Marijuana Advance Directives: Yes Advance Directives on File: Yes Advance Directives Date on File: 04/25/22 service: No Current occupational status: disabled Current occupation: right handed Cognitive needs: No Hearing needs: No Vision needs: Yes (glasses) Physical Exam ED Exam Exam: GENERAL: Ill-Appearing, appears uncomfortable. SKIN: Normal skin color for ethnicity, warm, dry, no rashes noted. HEENT:? Normocephalic, atraumatic, no stridor, dry mucous membranes, dentition intact, EOMI. NECK: Soft, supple, full ROM, midline structures nontender, no step-offs, no deformities, no lymphadenopathy. CHEST: Heart regular rhythm, no murmurs, symmetric chest rise and fall. PULMONARY: Clear to auscultation bilaterally, diminished at the bases, no labored breathing, no wheezes/rhales/rhonchi. ABDOMINAL: Soft, nondistended, nontender, positive bowel sounds in all quadrants. : Deferred. MUSCULOSKELETAL: Normal tone, full range of motion, no deformities, no peripheral edema. NEURO: Alert and oriented x3, CN II through XII intact, equal strength and sensation bilateral upper and lower extremities, no focal neurologic deficits.? PSYCHIATRIC: Flat affect, fluid speech, good eye contact and appropriate demeanor. Vital Signs: Vital Signs - 24 hr 07/25/25 03:06 Temperature 97.6 F Pulse Rate 88 Respiratory Rate 20 Blood Pressure 116/68 Pulse Oximetry 99 Oxygen Delivery Method Room Air BMI result Body Mass Index 25.9 Medications Administered Discontinued Medications Generic Name Dose Route Start Last Admin Trade Name Freq PRN Reason Stop Dose Admin Famotidine 20 mg 07/25/25 04:32 07/25/25 04:46 Famotidine/Pf 20 Mg/2 Ml Vial IVPUSH 07/25/25 04:33 20 mg ONCE ONE Administration Hydromorphone HCl 1 mg 07/25/25 04:32 07/25/25 04:48 Hydromorphone Hcl 1 Mg/Ml Syringe IVPUSH 07/25/25 04:33 1 mg ONCE ONE Administration Protocol Hydromorphone HCl 1 mg 07/25/25 06:06 07/25/25 06:19 Hydromorphone Hcl 1 Mg/Ml Syringe IVPUSH 07/25/25 06:07 1 mg ONCE ONE Administration Protocol Lactated Ringer's 1,000 mls @ 999 mls/hr 07/25/25 04:32 07/25/25 06:20 Lr IV 07/25/25 05:32 Infused .Q1H1M ONE Infusion Ondansetron HCl 4 mg 07/25/25 04:32 07/25/25 04:45 Ondansetron Hcl 4 Mg/2 Ml Vial IVPUSH 07/25/25 04:33 4 mg ONCE ONE Administration Medical Decision Making Medical Decision Making MDM Narrative: 59-year-old male with recently diagnosed esophageal adenocarcinoma presenting with dysphagia and inability to tolerate oral intake. Differential diagnosis includes achalasia, food bolus impaction, dysphagia due to worsening tumor burden, electrolyte abnormality, renal dysfunction, Miroslava-Waite tear, Boerhaave syndrome, among many others. Patient remains hemodynamically stable in the emergency department. Blood work reviewed shows slight dehydration but no significant kidney dysfunction or electrolyte abnormality. He has a small amount of starvation ketosis. His pain is poorly controlled. We will give a dose of Dilaudid, Zofran and IV fluids. Case discussed with GI on-call, Dr. Murrieta, who recommends admission, Dr. Strauss who is the patient's small equipment operator we will see him on Saturday and come up with a plan for nutrition going forward. Case discussed with the hospitalist as well. Patient understands and agrees with plan for admission. Admitted in guarded condition. Differential Diagnosis Differential Diagnoses: The differential diagnosis associated with the presentation includes (As above) Admission/Observation Consideration of admission/observation: Escalation of care including admission/observation considered Consult Healthcare Provider Management of the patient was discussed with: Hospitalist and Grad Intern (Gastroenterology: Dr. Murrieta) Lab Data MDM Lab Attestation statement: I reviewed the patient's lab results. 07/25/25 03:43 07/25/25 03:43 Labs: Lab Results 07/25/25 07/25/25 07/25/25 Range/Units 03:43 04:43 04:47 WBC 12.2 H (4.8-10.8) X10*3/uL RBC 4.90 (4.60-5.80) X10*6/uL Hgb 13.6 L (14.0-18.0) g/dl Hct 42.3 (42.0-52.0) % MCV 86.3 (80.0-98.0) fL MCH 27.8 (27.0-33.0) pg MCHC 32.2 (31.0-36.0) g/dl RDW 15.4 (11.0-16.0) % Plt Count 303 (160-400) X10*3/uL MPV 9.1 L (9.4-12.4) fL Immature Gran % (Auto) 0.5 H (0.0-0.4) % Neut % (Auto) 73.5 H (45-73) % Lymph % (Auto) 17.6 L (20-40) % [place] % (Auto) 7.6 (2-11) % Eos % (Auto) 0.4 (0-4) % Baso % (Auto) 0.4 (0-2) % Lymph # (Auto) 2.1 (1.2-4.9) X10*3/uL [place] # (Auto) 0.9 (0.1-1.2) X10*3/uL Eos # (Auto) 0.1 (0.0-0.4) X10*3/uL Baso # (Auto) 0.1 (0.0-0.2) X10*3/uL Abs Immat Gran (auto) 0.06 H (0.00-0.03) X10*3/uL Absolute Neuts (auto) 9.0 H (2.0-8.3) x10*3/uL Absolute Nucleated RBC 0.000 (0.0-0.012) X10*3/uL Nucleated RBC % (auto) 0.0 (0.0-0.2) /100WBC VBG pH 7.37 (7.32-7.43) VBG pCO2 32 mmHg VBG pO2 42 mmHg VBG HCO3 19 L (22-26) mmol/L VBG O2 Saturation 65.0 % VBG Base Excess -4.8 mmol/L Sodium 143 (135-145) mmol/L Potassium 3.6 (3.3-5.1) mmol/L Chloride 104 (96-108) mmol/L Carbon Dioxide 18 L (22-29) mmol/L Anion Gap 25 H (12-20) BUN 18 H (9-16) mg/dL Creatinine 0.74 (0.5-1.4) mg/dL Estim Creat Clear Calc 101.4 Estimated GFR > 60 Random Glucose 84 (60-115) mg/dL Calcium 9.7 (8.4-10.2) mg/dL Magnesium 2.0 (1.6-2.6) mg/dL Total Bilirubin 0.9 (0.0-1.0) mg/dL AST 21 (5-37) U/L ALT 7 (0-40) U/L Alkaline Phosphatase 77 (39-117) U/L Total Protein 7.5 (6.5-8.0) g/dL Albumin 4.6 (3.5-5.0) g/dL Lipase 15 (8-78) U/L ABG Data Attestation ABG: I personally reviewed and interpreted this ABG as follows: Interpretation: Metabolic acidosis with respiratory compensation Independent Interpretation I performed an independent interpretation of an: EKG and Plain X-Ray Interpretation: My independent interpretation of the ECG reveals normal sinus rhythm with rate of 74, normal axis, normal intervals, no ST elevations or depressions to suggest ischemic changes, relatively unchanged from previous on 06/18/2025. My independent interpretation of the chest x-ray reveals no consolidations, pulmonary edema, pleural effusion, pneumothorax, obvious bony abnormalities. Radiology Impression Discussion of test interpretation with radiology: I have reviewed the radiologist's reading. Independent Historian Clinical information obtained from an independent historian. History obtained from or confirmed by: Spouse External Record Review External record reviewed: Inpatient record and Office record Chronic Conditions Patient?s care impacted by: Cancer Social Determinants Patient?s care significantly limited by Social Determinants of Health including: Other Social Determinant of Health Discharge Plan Discharge Clinical Impression: Dysphagia, Decreased oral intake, Acute dehydration, Esophageal cancer Patient Disposition: Admitted As Inpatient Print Language: Jamaican
--- NOTE | 2025-07-25 07:25 | PC.NURSE ---
This RN assumed care of patient @ 0700 IV 20G R forearm Patient c/o right back pain, patient received dilaudid @ 0630 with somewhat effect Patient passed swallow test Patient does report discomfort when drinking and eating, patient reports recent poor intake CXR = no acute findings at bedside Plan of care on going
--- NOTE | 2025-07-25 09:07 | PHA.MEDREC ---
Addendum entered by Joe Alarcon PharmD 07/25/25 09:25: reviewed Original Note: Pharmacy Consult ? Medication Reconciliation Pharmacy has completed the medication reconciliation. Confirmed medication list with patient and against claims history. Patient took all medications except Ondansetron (Zofran) yesterday.
--- NOTE | 2025-07-25 10:21 | PM.IMHP ---
History of Present Illness Date of Service: 07/25/25 Chief Complaint: dysphagia 59-year-old man recently diagnosed with esophageal adenocarcinoma presenting with dysphagia. He reports that he was on able to swallow any liquids today. He took his medications yesterday but he reported he felt like his chest closed up and he had a very difficult time swallowing them. He reported has been getting worse over the last couple of days. He attempted to eat some noodle soup on and vomited afterwards. He reported pain to his right posterior shoulder and to his chest area under the right shoulder. He has not yet started on treatment for the cancer. His labs are all within normal limits. Chest x-ray negative for consolidation or effusion. Plan will be to admit patient for acute dysphagia. Review of Systems Review of Systems: Denies any recent fever chills or decrease in appetite respiratory denies any shortness of breath or cough cardiovascular denied chest pain gastrointestinal see HPI, denied diarrhea genitourinary denies any dysuria frequency or hematuria musculoskeletal see HPI neuropsych denies any weakness or seizures all other systems reviewed are negative [facility] Medical History (Updated 07/25/25 @ 11:39 by Toña Roa NP) Obstructive sleep apnea Esophageal cancer Chronic pain syndrome Nicotine dependence, cigarettes, uncomplicated COPD (chronic obstructive pulmonary disease) Insomnia PAF (paroxysmal atrial fibrillation) Essential (primary) hypertension Opioid dependence with unspecified opioid-induced disorder Peripheral vascular disease due to secondary diabetes Vitamin D deficiency Type 2 diabetes mellitus without complications Family History Father No problems noted. Mother Lung cancer, Onset Age: 48 Brother No problems noted. Brother No problems noted. Brother No problems noted. Sister No problems noted. Surgical History History of endoscopy History of colonoscopy with polypectomy (04/30/23) History of colonoscopy (~04/30/23) History of incisional hernia repair History of inguinal hernia repair History of colostomy History of colostomy reversal History of dental surgery History of hernia repair Social History Household Members: Spouse Housing: Apartment Are you a primary furnace caretaker to a significant other at home: No Do you presently have visiting nurse or other home services: No Alcohol intake: never Comment: with patient at present Patient Tobacco Use Status: Current everyday Tobacco user Tobacco use type: Cigarette Cigarette Packs Per Day: 1 Years Smoked: 45 Smoked in Last 30 Days: Yes e-Cigarette/Vaping Use: Never Used Second Hand Smoke Exposure: Yes Use of substances other than those prescribed or required for medical reasons: No Substance Use Type: Marijuana Advance Directives: Yes Advance Directives on File: Yes Advance Directives Date on File: 04/25/22 service: No Current occupational status: disabled Current occupation: right handed Cognitive needs: No Hearing needs: No Vision needs: Yes (glasses) Meds Allergies Allergy/AdvReac Type Severity Reaction Status Date / Time gabapentin AdvReac Intermediate dizziness Verified 07/25/25 03:11 Active Medications: Current Medications Acetaminophen (Acetaminophen 325 Mg Tablet) 650 mg PO Q6H PRN PRN Reason: Pain, Mild 1-3,fever,headache Calcium Carbonate (Calcium Carbonate 750 Mg Tab.Chew) 750 mg PO Q4H PRN PRN Reason: Heartburn Magnesium Hydroxide (Milk Of Magnesia 30 Ml Oral.Susp) 30 ml PO DAILY PRN PRN Reason: Constipation Melatonin (Melatonin 3 Mg Tablet) 6 mg PO BEDTIME PRN PRN Reason: Insomnia Pharmacy Consult (Consult Rx Parenteral Nutrition Ordering) 1 each MISCELLANE DAILY PRN PRN Reason: Consult order Sodium Chloride (0.9 % Sodium Chloride Flush 3 Ml Syringe) 3 ml IVFLUSH QSHIFT [facility] Home Medications ?Medication ?Instructions ?Recorded ?Confirmed ?Last Taken ?Type cholecalciferol (vitamin D3) 25 2,000 unit PO DAILY 12/14/20 07/25/25 07/24/25 History mcg (1,000 unit) capsule (Vitamin D3) Physical Exam Vital Signs and Narrative: Vital Signs: Last Vital Signs Temp 97.6 F 07/25/25 07:17 Pulse 88 07/25/25 07:17 Resp 20 07/25/25 07:17 BP 116/68 07/25/25 07:17 Pulse Ox 99 07/25/25 07:17 O2 Del Method Room Air 07/25/25 07:17 BMI result Body Mass Index 25.9 Appearing in no acute distress head is normocephalic atraumatic eyes pupils are PERRLA sclera is anicteric mouth throat mucous membranes are intact and moist neck is supple no lymphadenopathy, no JVD noted lung sounds are clear to auscultation heart regular rate rhythm, clear S1, S2 positive bowel sounds, abdomen is soft, nontender neuro patient is alert x3, no focal deficits Palpable pain to right posterior shoulder and chest area Results Labs 07/25/25 03:43 07/25/25 03:43 Labs: Laboratory Results - last 24 hr 07/25/25 07/25/25 07/25/25 03:43 04:43 04:47 MCV 86.3 MCH 27.8 MCHC 32.2 RDW 15.4 Plt Count 303 MPV 9.1 L Immature Gran % (Auto) 0.5 H Neut % (Auto) 73.5 H Lymph % (Auto) 17.6 L [place] % (Auto) 7.6 Eos % (Auto) 0.4 Baso % (Auto) 0.4 Lymph # (Auto) 2.1 [place] # (Auto) 0.9 Eos # (Auto) 0.1 Baso # (Auto) 0.1 Abs Immat Gran (auto) 0.06 H Absolute Neuts (auto) 9.0 H Absolute Nucleated RBC 0.000 Nucleated RBC % (auto) 0.0 VBG pH 7.37 VBG pCO2 32 VBG pO2 42 VBG HCO3 19 L VBG O2 Saturation 65.0 VBG Base Excess -4.8 Anion Gap 25 H Estim Creat Clear Calc 101.4 Estimated GFR > 60 Random Glucose 84 Calcium 9.7 Magnesium 2.0 Total Bilirubin 0.9 AST 21 ALT 7 Alkaline Phosphatase 77 Total Protein 7.5 Albumin 4.6 Lipase 15 Assessment and Plan (1) Opioid dependence with unspecified opioid-induced disorder: Status: Acute Plan 59 year old man admitted with dysphagia, recently diagnosed with adenocarcinoma of the esophagus Dysphagia Likely secondary to esophageal cancer, recently diagnosed Start PPN, patient will likely need a PEG tube for long-term NPO IV PPI IV fluids Esophageal carcinoma Recently diagnosed, has not started treatment yet Follows with [facility] oncology and gastroenterology pain to right posterior shoulder and chest pain management COPD, chronic No exacerbation Albuterol as needed Diabetes mellitus type 2 Point of care, sliding scale hold metformin due to dysphagia Paroxysmal atrial fibrillation Hold apixaban, diltiazem and Multaq due to dysphagia Metoprolol IV scheduled IAN cpap DVT prophylaxis with pneumatic compression boots Full code Quality Stroke Does the patient have a stroke diagnosis?: No VTE Prior VTE?: No VTE Risk Level:: Medical - moderate - high VTE Device Contraindication: Treatment Not Indicated VTE Drug Contraindication: N/A - Med Ordered
--- NOTE | 2025-07-25 10:42 | MHC.CLN ---
CONSULT FOR PPN NOTED PT WITH 16% SIGNIFICANT WT LOSS X 6 MONTHS R/T NEWLY DX ESOPHAGEAL CA AND CHRONIC POOR PO INTAKE/DYSPHAGIA PT CAN NOT TOLERATE PO INTAKE AT THIS TIME REVIEWED LABS DISCUSSED WITH PHARMACY RECOMMEND PPN AT 60ML/HR TO PROVIDE 734KCALS, 144G DEXTROSE, 61G PROTEIN REPLETE LYTES NEEDED FULL ASSESSMENT TO FOLLOW
[2025-07-25 12:07] LABS: Glucose, Whole Blood 66 mg/dL (60-115)
--- NOTE | 2025-07-25 12:12 | PC.NURSE ---
Patient NPO POC 66 Patient given D50 PRN, no s/sx of hypoglycemia Notified provider Patient currently running NS @ 80 ml/hr
--- NOTE | 2025-07-25 12:30 | CONS_ITS ---
DATE OF SERVICE: 07/25/2025 REFERRING PHYSICIAN: Toña Roa NP REASON FOR CONSULTATION: Esophageal adenocarcinoma with dysphagia. HISTORY OF PRESENT ILLNESS: Mr. Jesus is a pleasant 59-year-old man seen today in consultation. He has a history of poorly differentiated carcinoma of the esophagus diagnosed recently in June by Dr. Strauss. He has been seen in consultation by Dr. Hernandez from Oncology. He was admitted to the hospital after presenting to the emergency room with worsening swallowing problems, poor oral intake, and dehydration. He complains of pain in the chest area, upper abdomen, and into the right back area. He has been scheduled as an outpatient for upper endoscopy with endoscopic ultrasound for staging and recently had a PET/CT scan, which was not available at this time. PAST MEDICAL HISTORY: 1. Esophageal cancer as above. 2. Obstructive sleep apnea. 3. Tobacco use. 4. Chronic pain syndrome. 5. COPD. 6. Insomnia. 7. Paroxysmal atrial fibrillation. 8. Hypertension. 9. Opiate dependence. 10. Peripheral vascular disease. 11. Diabetes mellitus type 2. 12. Vitamin D deficiency. CURRENT MEDICATIONS: His current medication list is reviewed in the chart. ALLERGIES: GABAPENTIN. FAMILY HISTORY: This is reviewed with the patient and is noncontributory. SOCIAL HISTORY: There is no current substance abuse. REVIEW OF SYSTEMS: SKIN: No pruritus. HEENT: Negative. CARDIOPULMONARY: No shortness of breath or chest pain. GASTROINTESTINAL: As above. GENITOURINARY: Negative. NEUROPSYCHIATRIC: Negative. PHYSICAL EXAMINATION: GENERAL: Shows a pleasant male, lying comfortably in bed. VITAL SIGNS: Reviewed in the electronic medical record and are stable. SKIN: Anicteric. HEENT: Shows no scleral icterus. NECK: Without lymphadenopathy or thyromegaly. LUNGS: Clear. HEART: Shows a regular rate and rhythm. S1, S2. No murmur. ABDOMEN: Soft without focal masses or tenderness. He has an extensive surgical scar from an abdominal wall hernia repair with mesh. Bowel sounds are present. No organomegaly is noted. EXTREMITIES: Without edema. LABORATORY DATA AND IMAGING STUDIES: Reviewed. IMPRESSION: Esophageal cancer. I discussed options with him for alternative means of nutrition. This could include G-tube placement, which would likely need to be done surgically based on his extensive abdominal wall surgery and mesh placement. Another option could be intravenous nutrition with TPN. Surgical consultation can be obtained if G-tube is elected. I would also recommend obtaining Oncology consultation for guidance in terms of recommendations for further treatment. Thanks for asking me to see him. I will follow him in the hospital with you. MD AZUL John/ZURI / [id number]
[2025-07-25 15:59] LABS: Glucose, Whole Blood 65 mg/dL (60-115)
[2025-07-25 17:21] LABS: Glucose, Whole Blood 112 mg/dL (60-115)
[2025-07-25] MEDS: diazePAM 10 MG/2 ML CARTRIDGE 2.5 MG IVPUSH (19:18)
[2025-07-25 20:51] LABS: Glucose, Whole Blood 73 mg/dL (60-115)
[2025-07-25] MEDS: Parenteral Nutrition 1,440 ML 60 ML IV (21:23)
[2025-07-25] MEDS: 0.9 % Sodium Chloride Flush 3 ML SYRINGE IVFLUSH (21:26)
--- NOTE | 2025-07-25 22:18 | PM.EVENT ---
Event Note Date of Service: 07/26/25 Event Note: Nursing reported patient experiencing restless legs syndrome not currently on Requip. Patient stated to nursing that he normally would take Suboxone for this but this is not the usual way of prescribing Suboxone especially when patient is not being monitored in the community on this medication. Pt stated the valium given earlier did not help. Also question about running normal saline while PPI and is running was asked. Patient is willing to try Requip and starting patient on 0.25 x 1 tonight. MG level is WNL. Indicated that normally the NS is held when TPN is running and can resume once PPN is completed. 0910 Nursing reached out to let this data analyst report writer know that Pt is NPO and did not mention this when plan included po requip for RLS. Nursing administered the medication without adverse event and did notify provider. After further review of chart, pt has esophageal cancer and is currently NPO exploring alternative ways for nutrition. Time Spent With Patient Time: Total time managing care of this patient today ____ minutes.
--- NOTE | 2025-07-26 01:32 | PC.NURSE ---
2000 IV metoprolol held - HR 55. Provider Sam notified.
--- NOTE | 2025-07-26 02:01 | PC.NURSE ---
Pt given valium per MAR for RLS at 19:18. Upon reevaluation, valium did not help with pt RLS. Provider Sam notified and one time dose requip ordered. Requip given per MAR. Some relief upon reevaluation of pt.
[2025-07-26 04:00] VITALS: BP 138/66; PULSE 56; RESP 16; TEMP 36.4; O2SAT 99
[2025-07-26 06:57] VITALS: BP 140/69; PULSE 58; RESP 18; TEMP 36.4; O2SAT 98
[2025-07-26 07:09] LABS: Albumin Level 3.8 g/dL (3.5-5.0); Anion Gap 16 (12-20); Blood Urea Nitrogen 9 mg/dL (9-16); Calcium 9.2 mg/dL (8.4-10.2); Carbon Dioxide 20 mmol/L (22-29); Chloride 109 mmol/L (96-108); Creatinine Clr Calc Pharmacy 150.1; Estimated Glomerular Filt Rate > 60; Magnesium 2.0 mg/dL (1.6-2.6); Potassium 3.6 mmol/L (3.3-5.1); Sodium 141 mmol/L (135-145); Triglycerides 90 mg/dL (<150)
[2025-07-26 07:11] LABS: Glucose, Whole Blood 100 mg/dL (60-115)
[2025-07-26 07:37] LABS: Hematocrit 36.9 % (42.0-52.0); Hemoglobin 12.1 g/dl (14.0-18.0); Mean Corpuscular HGB Conc 32.8 g/dl (31.0-36.0); Mean Corpuscular Hemoglobin 27.9 pg (27.0-33.0); Mean Corpuscular Volume 85.0 fL (80.0-98.0); NRBC Abs Auto 0.000 X10*3/uL (0.0-0.012); NRBC Pct Auto 0.0 /100WBC (0.0-0.2); Platelet Count 253 X10*3/uL (160-400); Red Blood Count 4.34 X10*6/uL (4.60-5.80); White Blood Count 9.4 X10*3/uL (4.8-10.8)
[2025-07-26] MEDS: Lidocaine 4 % Patch ADH..PATCH 1 PATCH TRANSDERMA (08:55)
[2025-07-26] MEDS: 0.9 % Sodium Chloride Flush 3 ML SYRINGE IVFLUSH ×2 (08:56→20:31)
[2025-07-26 10:40] VITALS: BMI 25.9
--- NOTE | 2025-07-26 11:03 | PM.GIPN ---
Subjective Subjective Date of Service: 07/26/25 Interval History: 59 y.o M with recent dx of poorly differentiated esophageal adenoca. PET 07/2025 suspicious for mets to LN and ribs as well as Left paraspinal muscle. Was seen by the good Dr Murrieta over the weekend. Seen at bedside today. Reports he has had L arm pain and tingling along with chest pain x months which is what brought him to ER x 2 in june. He was supposed to have onc visit today but ended up getting admitted over the weekend. He is also rigoberto for EUS next week at [facility]. Critical Care Time (minutes): 0 Physical Exam Exam: Exam: No apparent distress Nonicteric abd soft, nontender, multiple surgical scars including a tender scar in LLQ Vital Signs: Vital Signs: Last Vital Signs Temp 97.5 F 07/26/25 06:57 Pulse 58 07/26/25 06:57 Resp 18 07/26/25 06:57 BP 140/69 H 07/26/25 06:57 Pulse Ox 98 07/26/25 06:57 O2 Del Method Room Air 07/26/25 06:57 BMI result Body Mass Index 25.9 Objective Data Labs 07/26/25 06:22 07/26/25 06:22 Labs: Laboratory Results - last 24 hr 07/25/25 07/25/25 07/25/25 12:02 15:53 17:17 WBC RBC Hgb Hct MCV MCH MCHC RDW Plt Count MPV Absolute Nucleated RBC Nucleated RBC % (auto) Sodium Potassium Chloride Carbon Dioxide Anion Gap BUN Creatinine Estim Creat Clear Calc Estimated GFR POC Glucose 66 65 112 Random Glucose Calcium Phosphorus Magnesium Albumin Triglycerides 07/25/25 07/26/25 07/26/25 20:30 06:22 06:56 WBC 9.4 RBC 4.34 L Hgb 12.1 L Hct 36.9 L MCV 85.0 MCH 27.9 MCHC 32.8 RDW 15.1 Plt Count 253 MPV 9.9 Absolute Nucleated RBC 0.000 Nucleated RBC % (auto) 0.0 Sodium 141 Potassium 3.6 Chloride 109 H Carbon Dioxide 20 L Anion Gap 16 BUN 9 Creatinine 0.50 Estim Creat Clear Calc 150.1 Estimated GFR > 60 POC Glucose 73 100 Random Glucose 106 Calcium 9.2 Phosphorus 3.4 Magnesium 2.0 Albumin 3.8 Triglycerides 90 Procedures Date of Service Date of Service: 07/26/25 Progress Note: A&P Assessment and plan (1) Dysphagia: Status: Acute (2) Adenocarcinoma of esophagus: Status: Acute Plan Pt with recently diagnosed poorly differentiated adenoca of esophagus with PET suspicious for mediastinal LN mets and bone mets. Pt also reports months of chest wall pain and L arm pain (also has involvement of L cervical paraspinal muscle). Agree with surgical eval for surgical g tube placement to avoid risk of seeding + pt with extensive abd surgical hx. Hold eliquis. Recommend onc evaluation to guide further mgmt. Given PET scan findings may not need EUS but will defer to Onc. Time Spent With Patient Time: Total time managing care of this patient today ____ minutes. Quality Stroke Does the patient have a stroke diagnosis?: No VTE Prior VTE?: No VTE Risk Level:: Medical - moderate - high VTE Device Contraindication: Treatment Not Indicated VTE Drug Contraindication: N/A - Med Ordered
--- NOTE | 2025-07-26 11:04 | P.CONGS_ITS ---
History of Present Illness Consult details Consult date: 07/26/25 <Sherie Brooks PA-C - Last Filed: 07/26/25 12:16> Reason for consult: other (G tube ) <ALEXA Peña Last Filed: 07/26/25 12:16> Requesting physician: Sahil Kidd <ALEXA Peña Last Filed: 07/26/25 12:16> Narrative: 59-year-old man COPD, T2DM, PVD, PAF on eliquis and recently diagnosed esophageal adenocarcinoma presenting with complaints of worsening dysphagia. He had an upper endo on 06/23/25 for odynophagia and abnormal imaging of the esophagus and was found to have an ulcerated lesion 33 cm to 28 cm occupying about half the circumference of the esophagus. Pathology revealed poorly differentiated carcinoma. He was referred to Oncology but has not yet started on treatment for the cancer. PET scan on 07/21/25 showed multiple FDG avid nodes (retrotracheal, paratracheal, paraesophageal, gastroesophageal) and lytic lesions of the left ribs suspicious for metastatic disease. He reports that he has only been able to swallow liquids and had a very difficult time swallowing his meds. This has been getting worse. He attempted to eat some noodle soup on and vomited afterwards. Chest x-ray negative for consolidation or effusion. He was admitted to the medical service for further treatment for the worsening dysphagia. General surgery was consulted for possible G tube placement. He has been started on PPN. He feels better since not having any oral intake over the past few days. Patient has a history of perforated diverticulitis s/p carina procedure in 2003, followed by colostomy reversal in 2004 and laparoscopic incisional hernia repair with large mesh in 2005. He developed at hernia at the old colostomy site just beyond the edge of the previous mesh and underwent repair of an incisional hernia with Ventralex mesh [place] [address] Mckinley. <ALEXA Peña Last Filed: 07/26/25 12:16> Review of Systems 2 Constitutional: Constitutional: Denies chills, Denies fever(s) and Reports weight loss <ALEXA Peña Last Filed: 07/26/25 12:16> ENT: Denies dizziness <Sherie Brooks PA-C Last Filed: 07/26/25 12:16> Cardiovascular: Cardiovascular: Denies chest pain and Denies dyspnea < Sherie Brooks PA-C Last Filed: 07/26/25 12:16> Respiratory: Respiratory: Denies dyspnea <Sherie Brooks PA-C Last Filed: 07/26/25 12:16> Gastrointestinal: Gastrointestinal: Reports as per HPI <Sherie Brooks PA-C Last Filed: 07/26/25 12:16> Integumentary/Breasts: Skin/Breast: Denies rash and Denies jaundice < Sherie Brooks PA-C Last Filed: 07/26/25 12:16> Neurologic: Denies dizziness <Sherie Brooks PA-C Last Filed: 07/26/25 12:16> [facility] Past Medical History Medical History: Medical History (Updated 07/26/25 @ 16:34 by iTana Du MD) Obstructive sleep apnea Esophageal cancer Chronic pain syndrome Nicotine dependence, cigarettes, uncomplicated COPD (chronic obstructive pulmonary disease) Insomnia PAF (paroxysmal atrial fibrillation) Essential (primary) hypertension Opioid dependence with unspecified opioid-induced disorder Peripheral vascular disease due to secondary diabetes Vitamin D deficiency Type 2 diabetes mellitus without complications <Sherie Brooks PA-C Last Filed: 07/26/25 12:16> Family History Family History: Family History Father No problems noted. Mother Lung cancer, Onset Age: 48 Brother No problems noted. Brother No problems noted. Brother No problems noted. Sister No problems noted. <Sherie Brooks PA-C Last Filed: 07/26/25 12:16> Surgical History Surgical History: Surgical History History of endoscopy History of colonoscopy with polypectomy (04/30/23) History of colonoscopy (~04/30/23) History of incisional hernia repair History of inguinal hernia repair History of colostomy History of colostomy reversal History of dental surgery History of hernia repair <Sherie Brooks PA-C - Last Filed: 07/26/25 12:16> Social History Social History: Social History Household Members: Significant Other Housing: Apartment Housing Other:: one step to get into house Are you a primary adult caregiver to a significant other at home: No Do you presently have visiting nurse or other home services: No Alcohol intake: never Comment: with patient at present Patient Tobacco Use Status: Former Tobacco user Tobacco use type: Cigarette Cigarette Packs Per Day: 1 Years Smoked: 45 e-Cigarette/Vaping Use: Former Use Second Hand Smoke Exposure: Yes Substance Use Type: Marijuana Advance Directives Date on File: 04/25/22 service: No Current occupational status: disabled Current occupation: right handed Cognitive needs: No Hearing needs: No Vision needs: Yes (glasses) <Sherie Brooks PA-C - Last Filed: 07/26/25 12:16> Meds Allergies/Adverse reactions: Allergies Allergy/AdvReac Type Severity Reaction Status Date / Time gabapentin AdvReac Intermediate dizziness Verified 07/25/25 03:11 <Sherie Brooks PA-C - Last Filed: 07/26/25 12:16> Active Medications: Current Medications Acetaminophen (Acetaminophen 325 Mg Tablet) 650 mg PO Q6H PRN PRN Reason: Pain, Mild 1-3,fever,headache Calcium Carbonate (Calcium Carbonate 750 Mg Tab.Chew) 750 mg PO Q4H PRN PRN Reason: Heartburn Dextrose (Dextrose 50 % 25 Gm/50 Ml Syringe) 25 gm IVPUSH Q15M PRN; Protocol PRN Reason: per Hypoglycemia Standing Ord. Last Admin: 07/25/25 16:16 Dose: 25 gm Diazepam (Diazepam 10 Mg/2 Ml Cartridge) 2.5 mg IVPUSH Q6H PRN PRN Reason: anxiety, RLS Last Admin: 07/25/25 19:18 Dose: 2.5 mg Glucose (Glucose Gel 15 Gm Gel..Gram.) 15 gm PO Q15M PRN; Protocol PRN Reason: per Hypoglycemia Standing Ord. Hydromorphone HCl (Hydromorphone Hcl 1 Mg/Ml Syringe) 0.5 mg IVPUSH Q4H PRN; Protocol PRN Reason: Pain, Severe (Pain Scale 7-10) Last Admin: 07/26/25 09:43 Dose: 0.5 mg Nutrition (Parenteral) (Parenteral Nutrition) 1,440 mls @ 60 mls/hr IV .Q24H [facility]; Protocol Stop: 07/26/25 20:59 Last Admin: 07/25/25 21:23 Dose: 60 mls/hr Sodium Chloride (Ns) 1,000 mls @ 80 mls/hr IVCONT .[id number] [facility] Last Admin: 07/26/25 01:30 Dose: Not Given Insulin Human Lispro (Insulin Lispro 100 Unit/Ml 3 Ml Vial) 0 unit SUBCUT QIDACHS [facility]; Protocol Last Admin: 07/26/25 08:40 Dose: Not Given Lidocaine (Lidocaine 4 % Patch Adh..Patch) 1 patch TRANSDERMA DAILY [facility]; Protocol Last Admin: 07/26/25 08:55 Dose: 1 patch Magnesium Hydroxide (Milk Of Magnesia 30 Ml Oral.Susp) 30 ml PO DAILY PRN PRN Reason: Constipation Melatonin (Melatonin 3 Mg Tablet) 6 mg PO BEDTIME PRN PRN Reason: Insomnia Metoprolol Tartrate (Metoprolol Tartrate 5 Mg/5 Ml Vial) 2.5 mg IVPUSH Q8H [facility]; Protocol Last Admin: 07/26/25 04:11 Dose: Not Given Pantoprazole Sodium (Pantoprazole Sodium 40 Mg/10 Ml Vial) 40 mg IVPUSH DAILY@0630 [facility] Last Admin: 07/26/25 05:32 Dose: 40 mg Pharmacy Consult (Consult Rx Parenteral Nutrition Ordering) 1 each MISCELLANE DAILY PRN PRN Reason: Consult order Sodium Chloride (0.9 % Sodium Chloride Flush 3 Ml Syringe) 3 ml IVFLUSH QSHIFT [facility] Last Admin: 07/26/25 08:56 Dose: 3 ml <Sherie Brooks PA-C - Last Filed: 07/26/25 12:16> Home medications: Home Medications ?Medication ?Instructions ?Recorded ?Confirmed ?Last Taken ?Type cholecalciferol (vitamin D3) 25 2,000 unit PO DAILY 07/25/25 07/24/25 History mcg (1,000 unit) capsule (Vitamin D3) <Sherie Brooks PA-C - Last Filed: 07/26/25 12:16> Physical Exam 2 Vital Signs: Vital Signs: Last Vital Signs Temp 97.5 F 07/26/25 06:57 Pulse 58 07/26/25 06:57 Resp 18 07/26/25 06:57 BP 140/69 H 07/26/25 06:57 Pulse Ox 98 07/26/25 06:57 O2 Del Method Room Air 07/26/25 06:57 BMI result Body Mass Index 25.9 <ALEXA Peña Last Filed: 07/26/25 12:16> Const: General: comfortable, no acute distress and alert <Sherie Brooks PA-C - Last Filed: 07/26/25 12:16> Orientation/consciousness: patient oriented x3 <Sherie Brooks PA-C - Last Filed: 07/26/25 12:16> Resp: Effort & Inspection: normal respiratory effort, able to speak in complete sentences and not tachypneic <ALEXA Peña Last Filed: 07/26/25 12:16> GI: Other: soft, nondistended tender at the LLQ, remainder of abd nontender multiple abdominal scars present; long midline laparotomy incision extending subxyphoid to infraumbilical, mid/lower LLQ scar, scattered small port site scars present <Sherie Brooks PA-C - Last Filed: 07/26/25 12:16> Percussion: Yes normal to percussion <ALEXA Peña Last Filed: 07/26/25 12:16> Skin: General skin exam: no rashes or lesions noted and no jaundice < ALEXA Peña Last Filed: 07/26/25 12:16> Neuro: General: patient oriented x3 and moves all extremities <Sherie Brooks PA-C - Last Filed: 07/26/25 12:16> Results Labs Result diagrams: 07/27/25 05:02 07/27/25 05:02 <ALEXA Peña Last Filed: 07/26/25 12:16> Labs: Abnormal lab results 07/26/25 Range/Units 06:22 RBC 4.34 L (4.60-5.80) X10*6/uL Hgb 12.1 L (14.0-18.0) g/dl Hct 36.9 L (42.0-52.0) % Chloride 109 H (96-108) mmol/L Carbon Dioxide 20 L (22-29) mmol/L Short CBC 07/26/25 Range/Units 06:22 WBC 9.4 (4.8-10.8) X10*3/uL Hgb 12.1 L (14.0-18.0) g/dl Hct 36.9 L (42.0-52.0) % Plt Count 253 (160-400) X10*3/uL BMP 07/26/25 06:22 Sodium 141 Potassium 3.6 Chloride 109 H Carbon Dioxide 20 L BUN 9 Creatinine 0.50 Calcium 9.2 Liver Function 07/26/25 Range/Units 06:22 Albumin 3.8 (3.5-5.0) g/dL All other labs normal. <Sherie Brooks PA-C - Last Filed: 07/26/25 12:16> Imaging Chest x-ray: report reviewed and image reviewed <Sherie Brooks PA-C Last Filed: 07/26/25 12:16> Additional studies: labs reviewed <Sherie Brooks PA-C Last Filed: 07/26/25 12:16> Assessment and Plan (1) Esophageal cancer: Status: Acute <ALEXA Peña Last Filed: 07/26/25 12:16> (2) Dysphagia: Status: Acute <Sherie Brooks PA-C Last Filed: 07/26/25 12:16> (3) Esophageal cancer: Status: Acute <Sherie Brooks PA-C Last Filed: 07/26/25 12:16> 59-year-old male diagnosed with esophageal adenocarcinoma last month, admitted with the weekend for worsening dysphagia He says that he has difficulty swallowing clear soups now and Ensure He denies significant pain He had an a PET scan done last week showing suggestion of disease in multiple lymph nodes in the chest and question of metastatic disease to the ribs He was actually waiting for an endo ultrasound for staging which she has to be done next week in [place] I have ordered for a CAT scan of the abdomen and pelvis to evaluate the abdomen for possible G-tube/jejunostomy tube In view of the narrowing of his esophagus, we will not attempt PEG placement He does have a large mesh because of an incisional hernia on a previous laparotomy incision for diverticular disease He also had a mesh placed for an incisional hernia on the old colostomy site on the left We will see what his CAT scan looks like We will follow along while he is in the hospital In the meantime, consider parenteral nutrition including a PICC line I have seen and examined the patient independently His was with him during the visit <Zeeshan Mckinley MD - Last Filed: 07/27/25 12:20> 59-year-old man COPD, T2DM, PVD, PAF on eliquis and recently diagnosed esophageal adenocarcinoma presenting with complaints of worsening dysphagia. He has had extensive abdominal surgery including incisional hernia repair with a large mesh. In view of this, anticipate it would be a technically difficulty procedure due to adhesions. He would therefore not be a PEG candidate and GI does not recommend in view of potential for seeding. Would recommend obtaining CT scan of the abd pelvis for surgical planning. May end up in gastrostomy or jejunostomy depending on anatomy intraoperatively and timing TBD. Cont PPN, hold eliquis. <Sherie Brooks PA-C - Last Filed: 07/26/25 12:16> Procedures Date of Service Date of Service: 07/26/25 <Sherie Brooks PA-C - Last Filed: 07/26/25 12:16> 07/27/25 <Zeeshan Mckinley MD - Last Filed: 07/27/25 12:20>
--- NOTE | 2025-07-26 11:17 | PC.NURSE ---
Need for cardiac monitoring adressed with Dr. Kidd
--- NOTE | 2025-07-26 11:20 | MHC.CLN ---
NUTRITION ESOPHAGEAL CANCER WITH DYSPHAGIA. REQUIRES ALTERNATE NUTRITION VIA PPN. QUALIFIES MODERATELY MALNOURISHED IN THE CONTEXT OF ACUTE ILLNESS. INADEQUATE PO INTAKE X GREATER THAN 5 DAYS. SIGNIFICANT WEIGHT LOSS X 5 MONTHS -15.9%. REVIEWED LABS. COMMUNICATED WITH PHARMACY. RECOMMEND ADVANCE PPN TO MAX GOAL RATE: PPN AT 85 M/HOUR, ADD 85 G LIPIDS TO PROVIDE 1890 TOTAL KCALS (27 KCALS/KG IBW), 204 G DEXTROSE, 87 G PROTEIN (1.24 G/KG IBW). REPLETE LYTES NEEDED. FOLLOW FOR PPN TOLERANCE AND PLAN OF CARE. SEE CLINICAL NUTRITION ASSESSMENT.
[2025-07-26 11:27] LABS: Glucose, Whole Blood 120 mg/dL (60-115)
[2025-07-26 11:33] VITALS: BP 133/71; PULSE 57
--- NOTE | 2025-07-26 12:51 | P.PNIM_ITS ---
Subjective Subjective Date of Service: 07/26/25 Interval History: Swallowing still difficult. Tolerating small amounts of water Review of Systems Denies chest pain Denies shortness of breath Denies nausea vomiting diarrhea Denies fever chills Physical Exam 2 Vital Signs: Vital Signs: Last Vital Signs Temp 97.5 F 07/26/25 06:57 Pulse 57 07/26/25 11:33 Resp 18 07/26/25 06:57 BP 133/71 07/26/25 11:33 Pulse Ox 98 07/26/25 06:57 O2 Del Method Room Air 07/26/25 06:57 BMI result Body Mass Index 25.9 Const: Other: Awake alert comfortable appearing Resp: Other: Clear to auscultation bilaterally no rales rhonchi or wheezes Cardio: Other: No S4; positive S1-S2; no S3 murmurs rubs or gallops GI: Other: Soft nontender nondistended normoactive bowel sounds Extrem: Other: No edema bilaterally Objective Data Active Medications Acetaminophen (Acetaminophen 325 Mg Tablet) 650 mg PO Q6H PRN PRN Reason: Pain, Mild 1-3,fever,headache Calcium Carbonate (Calcium Carbonate 750 Mg Tab.Chew) 750 mg PO Q4H PRN PRN Reason: Heartburn Dextrose (Dextrose 50 % 25 Gm/50 Ml Syringe) 25 gm IVPUSH Q15M PRN; Protocol PRN Reason: per Hypoglycemia Standing Ord. Last Admin: 07/25/25 16:16 Dose: 25 gm Documented By: MADONNA Diazepam (Diazepam 10 Mg/2 Ml Cartridge) 2.5 mg IVPUSH Q6H PRN PRN Reason: anxiety, RLS Last Admin: 07/25/25 19:18 Dose: 2.5 mg Documented By: KATHLEEN Glucose (Glucose Gel 15 Gm Gel..Gram.) 15 gm PO Q15M PRN; Protocol PRN Reason: per Hypoglycemia Standing Ord. Hydromorphone HCl (Hydromorphone Hcl 1 Mg/Ml Syringe) 0.5 mg IVPUSH Q4H PRN; Protocol PRN Reason: Pain, Severe (Pain Scale 7-10) Last Admin: 07/26/25 09:43 Dose: 0.5 mg Documented By: JULIO C Nutrition (Parenteral) (Parenteral Nutrition) 1,440 mls @ 60 mls/hr IV .Q24H [facility]; Protocol Stop: 07/26/25 20:59 Last Admin: 07/25/25 21:23 Dose: 60 mls/hr Documented By: KATHLEEN Sodium Chloride (Ns) 1,000 mls @ 80 mls/hr IVCONT .[id number] [facility] Last Admin: 07/26/25 01:30 Dose: Not Given Documented By: KATHLEEN Non-Admin Reason: fluids paused while PPN infusing Nutrition (Parenteral) (Parenteral Nutrition) 2,040 mls @ 85 mls/hr IV .Q24H [facility]; Protocol Stop: 07/27/25 20:59 Insulin Human Lispro (Insulin Lispro 100 Unit/Ml 3 Ml Vial) 0 unit SUBCUT QIDACHS [facility]; Protocol Last Admin: 07/26/25 11:28 Dose: Not Given Documented By: JULIO C Non-Admin Reason: No Insulin Coverage Lidocaine (Lidocaine 4 % Patch Adh..Patch) 1 patch TRANSDERMA DAILY [facility]; Protocol Last Admin: 07/26/25 08:55 Dose: 1 patch Documented By: JULIO C Magnesium Hydroxide (Milk Of Magnesia 30 Ml Oral.Susp) 30 ml PO DAILY PRN PRN Reason: Constipation Melatonin (Melatonin 3 Mg Tablet) 6 mg PO BEDTIME PRN PRN Reason: Insomnia Metoprolol Tartrate (Metoprolol Tartrate 5 Mg/5 Ml Vial) 2.5 mg IVPUSH Q8H [facility]; Protocol Last Admin: 07/26/25 11:34 Dose: Not Given Documented By: JULIO C Non-Admin Reason: HR 57 Pantoprazole Sodium (Pantoprazole Sodium 40 Mg/10 Ml Vial) 40 mg IVPUSH DAILY@0630 [facility] Last Admin: 07/26/25 05:32 Dose: 40 mg Documented By: KATHLEEN Pharmacy Consult (Consult Rx Parenteral Nutrition Ordering) 1 each MISCELLANE DAILY PRN PRN Reason: Consult order Sodium Chloride (0.9 % Sodium Chloride Flush 3 Ml Syringe) 3 ml IVFLUSH QSHIFT [facility] Last Admin: 07/26/25 08:56 Dose: 3 ml Documented By: JULIO C Labs 07/26/25 06:22 07/26/25 06:22 Labs: Laboratory Results - last 24 hr 11/23/25 11/23/25 11/23/25 15:53 17:17 20:30 MCV MCH MCHC RDW Plt Count MPV Absolute Nucleated RBC Nucleated RBC % (auto) Anion Gap Estim Creat Clear Calc Estimated GFR POC Glucose 65 112 73 Random Glucose Calcium Phosphorus Magnesium Albumin Triglycerides 07/26/25 07/26/25 07/26/25 06:22 06:56 11:23 MCV 85.0 MCH 27.9 MCHC 32.8 RDW 15.1 Plt Count 253 MPV 9.9 Absolute Nucleated RBC 0.000 Nucleated RBC % (auto) 0.0 Anion Gap 16 Estim Creat Clear Calc 150.1 Estimated GFR > 60 POC Glucose 100 120 H Random Glucose 106 Calcium 9.2 Phosphorus 3.4 Magnesium 2.0 Albumin 3.8 Triglycerides 90 Assessment and Plan (1) Carcinoma of esophagus: Status: Acute (2) Type 2 diabetes mellitus without complications: Status: Acute (3) PAF (paroxysmal atrial fibrillation): Status: Acute Plan 59 year old man admitted with dysphagia, recently diagnosed with adenocarcinoma of the esophagus 1.Dysphagia secondary to poorly differentiated adenocarcinoma of the esophagus -PICC line ordered in preparation for TPN -cat scan abdomen and pelvis to evaluate mesh. Appreciate surgical input question gastrostomy versus jejunostomy tube -NPO -IV PPI/IV fluids 2.COPD, chronic -stable and well compensated -continue outpatient therapies; adjust as indicated 3.Diabetes mellitus type 2 -acceptable control on current therapy -hold oral agents secondary to 1. -lispro correctional scale -adjust as indicated 4.Paroxysmal atrial fibrillation -examines NSR -hold apixaban/diltiazem/Multaq -IV agents if indicated DVT prophylaxis with pneumatic compression boots Full code Requires ongoing hospitalization for TPN given inability to swallow secondary to esophageal carcinoma Quality Stroke Does the patient have a stroke diagnosis?: No VTE Prior VTE?: No VTE Risk Level:: Medical - moderate - high VTE Device Contraindication: Treatment Not Indicated VTE Drug Contraindication: N/A - Med Ordered
--- NOTE | 2025-07-26 15:53 | MHC.CM.PN ---
Electronic medical record reviewed along with case discussed on multiple disciplinary rounds ,per documentation patient was recently diagnosed with esophageal cancer and presented to the E.R. with worsening dysphagia, This mortgage underwriter was asked to check with patients insurance to see if insurance would cover TPN post discharge if needed vs a peg tube or j-tube, , i spoke with Chana Marie at [facility], she reported that they use [facility] for home TPN INFUSION, if needed. I recived repply from [facility] the patient would be covered at 100% for the TPN.
[2025-07-26 16:00] VITALS: BP 154/75; PULSE 66; RESP 16; TEMP 37; O2SAT 99
--- NOTE | 2025-07-26 16:08 | P.PICC_ITS ---
PICC Line Insertion NPICC INSERTION Diagnosis: Carcinoma of Esophagus Indication: Needs TPN Pertinent Labs: Reviewed Technique: Following informed consent including risks, benefits and alternatives and using sterile technique including cap and mask, sterile gown, glove and drape, the Right arm was prepped and draped in the usual sterile fashion of full barrier technique with CHG. Following completion of Fitzwilliam Protocol the skin and soft tissues were anesthetized with 1% Lidocaine plain. Using ultrasound guidance, Right Brachial vein access was obtained. Over an 0.018 wire through peel-away sheath, a 5Fr triple Lumen PASV PICC line was positioned. Catheter length is 40Cm internal length, 0CM external length, for a total trimmed length of 0CM. The procedure was performed in 7. STAT CXR was ordered by Dr Dudley And READ BY Dr Dudley-- Tip located in [facility]. Ultrasound was used to document vein patency and for needle entry. A formal ultrasound picture and cardiac rhythm strip was recorded. Vascular Classification Control Clerk has released the line for use and it is currently dressed with a StatLock, Tegaderm, and CHG disc. Verification has been performed for blood return and line patency. Arm Circumference: 28CM Equipment: [employer] PowerPicc Solo catheter with Sherlock 3CG Catheter Type: 5Fr triple Lumen PASV PowerPICC Lot #: [id number]
--- NOTE | 2025-07-26 16:23 | PM.HEMONCCN ---
Subjective - Subjective Chief complaint: Consult for: Adenoma of the esophagus. Patient: known to practice within the last 3 years Consult date: 07/26/25 Requesting Physician: Dr. Kidd. Primary Care Provider: Kris Ivory MD Family Provider: Kris Ivory MD Medical Summary: DIAGNOSIS: WIDELY METASTATIC CARCINOMA OF THE ESOPHAGUS.. Line Tender Flakeboard Utilized?: No - Japanese Speaking HPI - Consult Narrative Reason for consult: Consult for: Carcinoma of the esophagus. Narrative: Bran Jesus is a 59 year old gentleman, admitted with dysphagia. He was recently diagnosed with esophageal adenocarcinoma. His workup is in progress. He has had progressively increasing dysphagia over the past 3 days. He reports that he was on able to swallow any liquids on the day of admission. He took his medications the day before. He reported he felt like his chest closed up and he had a very difficult time swallowing them. He attempted to eat some noodle soup on and vomited afterwards. He reported pain to his right posterior shoulder and to his chest area under the right shoulder. His labs are all within normal limits. Chest x-ray negative for consolidation or effusion. Medical History:) Obstructive sleep apnea Esophageal cancer Chronic pain syndrome Nicotine dependence, cigarettes, uncomplicated COPD (chronic obstructive pulmonary disease) Insomnia PAF (paroxysmal atrial fibrillation) Essential (primary) hypertension Opioid dependence with unspecified opioid-induced disorder Peripheral vascular disease due to secondary diabetes Vitamin D deficiency Type 2 diabetes mellitus without complications. Surgical History:) History of endoscopy History of colonoscopy with polypectomy (04/30/23) History of colonoscopy (~04/30/23) History of incisional hernia repair History of inguinal hernia repair History of colostomy Family History:) Father No problems noted. Mother Lung cancer, Onset Age: 48 Brother No problems noted. Brother No problems noted. Brother No problems noted. Sister No problems noted. Review of Systems Feels fatigued. No fever chills nor night sweats. He has a decrease in appetite Respiratory denies any shortness of breath or cough cardiovascular denied chest pain gastrointestinal: Dysphagia, denied diarrhea genitourinary denies any dysuria frequency or hematuria musculoskeletal: Has had shoulder pain and muscle pain. neuropsych denies any weakness or seizures All other systems reviewed are negative Review of Systems - Constitutional Reports system reviewed and no additional complaints, except as documented, Reports difficulty sleeping, Reports lack of energy, Reports malaise, Reports weight loss - Eyes Reports system reviewed and no additional complaints, except as documented - ENT Reports system reviewed and no additional complaints, except as documented - Cardiovascular Reports system reviewed and no additional complaints, except as documented - Respiratory Reports no additional respiratory complaints - Gastrointestinal Reports system reviewed and no additional complaints, except as documented, Reports bloating, Reports difficulty swallowing, Reports feeling full early, Reports heartburn - Genitourinary Genitourinary: Reports no additional male genitourinary complaints - Musculoskeletal Reports system reviewed and no additional complaints, except as documented - Integumentary/Breasts Skin/Breast: Reports no additional skin complaints - Neurologic Denies dizziness - Psychiatric Reports system reviewed and no additional complaints, except as documented - Endocrine Reports no additional endocrine complaints - Hematologic/Lymphatic Reports system reviewed and no additional complaints, except as documented - Allergic/Immunologic Reports system reviewed and no additional complaints, except as documented Oncology Screenings - ECOG Performance Status ECOG Performance Status: 1 [facility] Medical History: Medical History (Last Updated 07/25/25 @ 11:39 by Toña Roa NP) Chronic pain syndrome COPD (chronic obstructive pulmonary disease) Esophageal cancer Essential (primary) hypertension Insomnia Nicotine dependence, cigarettes, uncomplicated Obstructive sleep apnea Opioid dependence with unspecified opioid-induced disorder PAF (paroxysmal atrial fibrillation) Peripheral vascular disease due to secondary diabetes Type 2 diabetes mellitus without complications Vitamin D deficiency Functional capacity: uses cane/walker Patient : No Family History: Family History (Last Reviewed 07/25/25 @ 06:55 by Jimena Medel DO) Father No problems noted. Mother Lung cancer, Onset Age: 48 Brother No problems noted. Brother No problems noted. Brother No problems noted. Sister No problems noted. Surgical History: Surgical History (Last Reviewed 07/25/25 @ 06:55 by Jimena Medel DO) History of colonoscopy Onset Date: ~04/30/23 History of colonoscopy with polypectomy Onset Date: 04/30/23 History of colostomy History of colostomy reversal History of dental surgery History of endoscopy History of hernia repair History of incisional hernia repair History of inguinal hernia repair Social History: Social History (Last Reviewed 07/25/25 @ 06:55 by Jimena Medel DO) Living Situation History: Household Members: Significant Other Housing: Apartment Housing Other:: one step to get into house Are you a primary animal care supervisor to a significant other at home: No Do you presently have visiting nurse or other home services: No Tobacco History: Patient Tobacco Use Status: Former Tobacco user Tobacco use type: Cigarette Cigarette Packs Per Day: 1 Years Smoked: 45 Smoking End Date: 07/03/25 e-Cigarette/Vaping Use: Former Use Second Hand Smoke Exposure: Yes Substance Use History: Substance Use Type: Marijuana Advance Directives: Advance Directives Date on File: 04/25/22 Occupation Assessmet: service: No Current occupational status: disabled Current occupation: right handed Home Medications and Allergies Current Medications: Current Medications Acetaminophen (Acetaminophen 325 Mg Tablet) 650 mg PO Q6H PRN PRN Reason: Pain, Mild 1-3,fever,headache Calcium Carbonate (Calcium Carbonate 750 Mg Tab.Chew) 750 mg PO Q4H PRN PRN Reason: Heartburn Dextrose (Dextrose 50 % 25 Gm/50 Ml Syringe) 25 gm IVPUSH Q15M PRN; Protocol PRN Reason: per Hypoglycemia Standing Ord. Last Admin: 07/25/25 16:16 Dose: 25 gm Diazepam (Diazepam 10 Mg/2 Ml Cartridge) 2.5 mg IVPUSH Q6H PRN PRN Reason: anxiety, RLS Last Admin: 07/25/25 19:18 Dose: 2.5 mg Glucose (Glucose Gel 15 Gm Gel..Gram.) 15 gm PO Q15M PRN; Protocol PRN Reason: per Hypoglycemia Standing Ord. Hydromorphone HCl (Hydromorphone Hcl 1 Mg/Ml Syringe) 0.5 mg IVPUSH Q4H PRN; Protocol PRN Reason: Pain, Severe (Pain Scale 7-10) Last Admin: 07/26/25 13:40 Dose: 0.5 mg Nutrition (Parenteral) (Parenteral Nutrition) 1,440 mls @ 60 mls/hr IV .Q24H [facility]; Protocol Stop: 07/26/25 20:59 Last Admin: 07/25/25 21:23 Dose: 60 mls/hr Sodium Chloride (Ns) 1,000 mls @ 80 mls/hr IVCONT .[id number] [facility] Last Admin: 07/26/25 13:55 Dose: Not Given Nutrition (Parenteral) (Parenteral Nutrition) 2,040 mls @ 85 mls/hr IV .Q24H [facility]; Protocol Stop: 07/27/25 20:59 Insulin Human Lispro (Insulin Lispro 100 Unit/Ml 3 Ml Vial) 0 unit SUBCUT QIDACHS [facility]; Protocol Last Admin: 07/26/25 11:28 Dose: Not Given Lidocaine (Lidocaine 4 % Patch Adh..Patch) 1 patch TRANSDERMA DAILY [facility]; Protocol Last Admin: 07/26/25 08:55 Dose: 1 patch Magnesium Hydroxide (Milk Of Magnesia 30 Ml Oral.Susp) 30 ml PO DAILY PRN PRN Reason: Constipation Melatonin (Melatonin 3 Mg Tablet) 6 mg PO BEDTIME PRN PRN Reason: Insomnia Pantoprazole Sodium (Pantoprazole Sodium 40 Mg/10 Ml Vial) 40 mg IVPUSH DAILY@0630 [facility] Last Admin: 07/26/25 05:32 Dose: 40 mg Pharmacy Consult (Consult Rx Parenteral Nutrition Ordering) 1 each MISCELLANE DAILY PRN PRN Reason: Consult order Ropinirole HCl (Ropinirole Hcl 1 Mg Tablet) 1 mg PO BEDTIME [facility] Sodium Chloride (0.9 % Sodium Chloride Flush 3 Ml Syringe) 3 ml IVFLUSH [facility] Last Admin: 07/26/25 14:06 Dose: Not Given Sodium Chloride (0.9 % Sodium Chloride Flush 10 Ml Syringe) 10 ml IVFLUSH [facility] Home Medications ?Medication ?Instructions ?Recorded ?Confirmed ?Type cholecalciferol (vitamin D3) 25 2,000 unit PO DAILY 12/14/20 07/25/25 History mcg (1,000 unit) capsule (Vitamin D3) Allergies Allergy/AdvReac Type Severity Reaction Status Date / Time gabapentin AdvReac Intermediate dizziness Verified 07/25/25 03:11 Physical Exam Vital signs: Vital Signs Temp 97.5 F 07/26/25 06:57 Pulse 57 07/26/25 11:33 Resp 18 07/26/25 06:57 BP 133/71 07/26/25 11:33 Pulse Ox 98 07/26/25 06:57 O2 Del Method Room Air 07/26/25 06:57 Intake & Output 07/25/25 07/26/25 07/26/25 18:59 06:59 18:59 Intake Total 1028 / 2048.333 1021.333 / 2048.333 Balance 1022048.333 1021.333 / 2048.333 Intake: Intake, Oral Amount 300 / 300 Intake, IV Amount 1028 / 1749.333 721.333 / 1749.333 Lactated Ringers 1,000 ml @ 999 1000 / 1000 mls/hr IV .Q1H1M [facility] Rx#: [id number] 0.9 % Sodium Chloride 1,000 ml 721.333 / 721.333 @ 80 mls/hr IVCONT .[id number] [facility] Rx#:[id number] Dextrose 5 % and 0.9 % NaCl 1, 28 / 28 000 ml @ 100 mls/hr IVCONT . Q10H [facility] Rx#:[id number] Other: NPO Yes Yes Yes Eating (Feeding) Ability Independent Number of Unmeasured Voids 2 Urine Bathroom Urine Color Yellow Weight 77.2 kg 77.2 kg Weight 77.2 kg - Constitutional Present: moderate distress - Routine HEENT Exam Head: Present: normal inspection, normocephalic ENT: Present: mucous membranes moist - Routine Neck Exam Present: supple Hem/Onc Consult Result - Labs CBC & Chem 7: 08/01/25 09:29 08/01/25 09:29 Labs: Short CBC 07/26/25 Range/Units 06:22 WBC 9.4 (4.8-10.8) X10*3/uL Hgb 12.1 L (14.0-18.0) g/dl Hct 36.9 L (42.0-52.0) % Plt Count 253 (160-400) X10*3/uL BMP 07/26/25 06:22 Sodium 141 Potassium 3.6 Chloride 109 H Carbon Dioxide 20 L BUN 9 Creatinine 0.50 Calcium 9.2 Liver Function 07/26/25 Range/Units 06:22 Albumin 3.8 (3.5-5.0) g/dL Assessment and Plan Patient Active problem list reviewed?: Yes (1) Carcinoma of esophagus Status: Acute Assessment and plan: 59 year old gentleman, with recent diagnosis of carcinoma of the esophagus. Patient is in a lot of pain. This spreads from his chest down into the abdomen epigastric area. He grades it is 10 on 1-10 scale. He has had dysphagia for a couple weeks. CAT Scan of the chest revealed: Focal abnormality in the mid intrathoracic esophagus. Inflammatory versus infectious versus neoplasm. Emphysematous type changes. No acute airspace disease Coronary artery disease and atherosclerosis disease. Calcified mitral valve.. He was seen by Dr. Strauss in underwent an upper endoscopy on 06/23. Findings: Esophagus: GE junction at 38 cm, diaphragm hiatus at 40 cm, with sliding hiatal hernia noted. [place] pink mucosa noted consistent with barretts, long segment. From 33 cm to 28 cm ulcerated lesion with slough and heaped up margins occupying about half the circumference of the esophagus. Bx were taken. Stomach: patchy erythema . Grade 2 flap valve on retroflexed examination of the cardia. Duodenum: Normal bulb and descending duodenum, Impression/Findings: hiatal hernia barretts esophagus. Esophageal mass, likely esophageal adenoca. PATHOLOGY REVEALED: Superficial fragments of poorly-differentiated Carcinoma. MSI will be addended. PD-L1: CPS: 90. CEA: 2.60. I shared the above results with him. Mentioned to him that patients usually require a combined modality approach. Went over treatment options includin. Surgery. 2. Chemoradiation. 3. Neoadjuvant chemo immunotherapy. Final recommendation will be based upon the exact stage of the disease. He needs further staging workup. PET scan was don trip 07/21 for further stagin. FDG avid mid esophageal mass in keeping with biopsy-proven esophageal malignancy. 2. FDG avid retrotracheal, right upper paratracheal, paraesophageal and gastrohepatic/GE junction lymph nodes suspicious for metastatic disease. 3. FDG avid lytic lesions involving the left anterior 1st rib and left posterior acetabulum suspicious for metastatic disease. Given the degree of cortical destruction the posterior column, consider orthopedic evaluation to exclude impending fracture. 4. Focal FDG activity involving the left cervical paraspinal muscle which may represent metastatic disease. 5. Nonspecific activity at the base of tongue. Correlation with direct visualization is recommended. We were waiting for the final immunostains on the pathology. l was in the process of proceeding with an endoscopic ultrasound to evaluate the tumors local depth and nearby lymph nodes. l referred him to Dr. Tunde Dowling at [facility] for that. Patient has been admitted with significant dysphagia, but being able to swallow even water. He had a PICC line placed. He has the TPN running. I shared the above PET scan findings with him and his . Mentioned that he has widely metastatic disease. It is involving lymph nodes in the chest and abdomen. There FDG avid lesions in the bone and even in the paraspinal muscles. With the extent of the disease his overall prognosis is guarded. We can consider palliative chemotherapy, however he is at risk of significant toxicity, without significant benefit. I will give them time to process, the information. Meanwhile will focus on symptom management. He still is in a lot of pain. PLAN: Would increase the Dilaudid to 4 mg every 3 hours as needed. I will have a follow-up conversation with them tomorrow. Will then come up with a treatment plan. Will have case management see him for palliative care. Thank you for the consult, I will follow along with you, CC: Dr Plasencia ADDENDUM: Patient has elected to go with comfort measures. Will get hospice involved, for smoother transition to home. - Time Spent With Patient Time Spent with Patient (in minutes): 30
--- NOTE | 2025-07-26 16:48 | MHC.CM.PN ---
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
[2025-07-26 17:18] LABS: Glucose, Whole Blood 116 mg/dL (60-115)
[2025-07-26 20:00] VITALS: BP 130/70; PULSE 62; RESP 17; TEMP 36.4; O2SAT 98
[2025-07-26] MEDS: 0.9 % Sodium Chloride Flush 10 ML SYRINGE IVFLUSH (20:27)
[2025-07-26] MEDS: Parenteral Nutrition 2,040 ML 85 ML IV (20:31)
[2025-07-26 21:11] LABS: Glucose, Whole Blood 125 mg/dL (60-115)
[2025-07-27 03:21] VITALS: BP 137/70; PULSE 63; RESP 18; TEMP 36.7; O2SAT 97
[2025-07-27 06:06] LABS: Hematocrit 37.1 % (42.0-52.0); Hemoglobin 12.6 g/dl (14.0-18.0); Mean Corpuscular HGB Conc 34.0 g/dl (31.0-36.0); Mean Corpuscular Hemoglobin 29.0 pg (27.0-33.0); Mean Corpuscular Volume 85.5 fL (80.0-98.0); NRBC Abs Auto 0.000 X10*3/uL (0.0-0.012); NRBC Pct Auto 0.0 /100WBC (0.0-0.2); Platelet Count 261 X10*3/uL (160-400); Red Blood Count 4.34 X10*6/uL (4.60-5.80); White Blood Count 10.3 X10*3/uL (4.8-10.8)
[2025-07-27 06:30] LABS: Albumin Level 3.9 g/dL (3.5-5.0); Anion Gap 14 (12-20); Blood Urea Nitrogen 10 mg/dL (9-16); Calcium 9.1 mg/dL (8.4-10.2); Carbon Dioxide 26 mmol/L (22-29); Chloride 106 mmol/L (96-108); Creatinine Clr Calc Pharmacy 147.1; Estimated Glomerular Filt Rate > 60; Magnesium 2.1 mg/dL (1.6-2.6); Potassium 3.8 mmol/L (3.3-5.1); Sodium 142 mmol/L (135-145)
[2025-07-27 07:46] VITALS: BP 151/75; PULSE 70; RESP 16; TEMP 36.2; O2SAT 94
[2025-07-27 08:03] LABS: Glucose, Whole Blood 156 mg/dL (60-115)
[2025-07-27] MEDS: Lidocaine 4 % Patch ADH..PATCH 1 PATCH TRANSDERMA (08:03)
--- NOTE | 2025-07-27 08:13 | PC.RT ---
pt refused, states he never had a home machine and was told he did not need one. therefore order will be dc'd per policy
--- NOTE | 2025-07-27 08:20 | P.PNGS_ITS ---
Subjective Subjective Date of Service: 07/27/25 <Sherie Brooks PA-C - Last Filed: 07/27/25 08:25> 07/27/25 <Zeeshan Mckinley MD - Last Filed: 07/27/25 12:20> Interval history: Was seen by oncology yesterday and updated regarding PET scan- widely metastatic disease and therefore prognosis guarded. Patient therefore unsure he wants to proceed with feeding tube in view of findings. Would like to go home and think about options. C/o severe back pain slightly relieved by analgesics. <Sherie Brooks PA-C - Last Filed: 07/27/25 08:25> Physical Exam 2 Vital Signs: Vital Signs: Last Vital Signs Temp 97.1 F 07/27/25 07:46 Pulse 70 07/27/25 07:46 Resp 16 07/27/25 07:46 BP 151/75 H 07/27/25 07:46 Pulse Ox 94 07/27/25 07:46 O2 Del Method Room Air 07/27/25 07:46 BMI result Body Mass Index 25.9 <Sherie Brooks PA-C - Last Filed: 07/27/25 08:25> Const: Other: uncomfortable appearing <ALEXA Peña Last Filed: 07/27/25 08:25> General: alert <ALEXA Peña Last Filed: 07/27/25 08:25> Orientation/consciousness: patient oriented x3 <ALEXA Peña Last Filed: 07/27/25 08:25> Resp: Effort & Inspection: normal respiratory effort and able to speak in complete sentences <ALEXA Peña Last Filed: 07/27/25 08:25> GI: Other: soft, nondistended <ALEXA Peña Last Filed: 07/27/25 08:25> Skin: Other: warm and dry <ALEXA Peña Last Filed: 07/27/25 08:25> Neuro: General: patient oriented x3 and moves all extremities <ALEXA Peña Last Filed: 07/27/25 08:25> Objective Data Active Medications Acetaminophen (Acetaminophen 325 Mg Tablet) 650 mg PO Q6H PRN PRN Reason: Pain, Mild 1-3,fever,headache Last Admin: 07/27/25 08:04 Dose: 650 mg Documented By: MITESH Calcium Carbonate (Calcium Carbonate 750 Mg Tab.Chew) 750 mg PO Q4H PRN PRN Reason: Heartburn Dextrose (Dextrose 50 % 25 Gm/50 Ml Syringe) 25 gm IVPUSH Q15M PRN; Protocol PRN Reason: per Hypoglycemia Standing Ord. Last Admin: 07/25/25 16:16 Dose: 25 gm Documented By: MADONNA Diazepam (Diazepam 10 Mg/2 Ml Cartridge) 2.5 mg IVPUSH Q6H PRN PRN Reason: anxiety, RLS Last Admin: 07/25/25 19:18 Dose: 2.5 mg Documented By: KATHLEEN Glucose (Glucose Gel 15 Gm Gel..Gram.) 15 gm PO Q15M PRN; Protocol PRN Reason: per Hypoglycemia Standing Ord. Hydromorphone HCl (Hydromorphone Hcl 2 Mg/Ml Vial) 3 mg IVPUSH Q3H PRN; Protocol PRN Reason: Pain, Severe (Pain Scale 7-10) Last Admin: 07/27/25 08:04 Dose: 3 mg Documented By: MITESH Nutrition (Parenteral) (Parenteral Nutrition) 2,040 mls @ 85 mls/hr IV .Q24H [facility]; Protocol Stop: 07/27/25 20:59 Last Admin: 07/26/25 20:31 Dose: 85 mls/hr Documented By: KATHLEEN Insulin Human Lispro (Insulin Lispro 100 Unit/Ml 3 Ml Vial) 0 unit SUBCUT QIDACHS [facility]; Protocol Last Admin: 07/27/25 08:05 Dose: 2 unit Documented By: MITESH Lidocaine (Lidocaine 4 % Patch Adh..Patch) 1 patch TRANSDERMA DAILY [facility]; Protocol Last Admin: 07/27/25 08:03 Dose: 1 patch Documented By: MITESH Magnesium Hydroxide (Milk Of Magnesia 30 Ml Oral.Susp) 30 ml PO DAILY PRN PRN Reason: Constipation Melatonin (Melatonin 3 Mg Tablet) 6 mg PO BEDTIME PRN PRN Reason: Insomnia Pantoprazole Sodium (Pantoprazole Sodium 40 Mg/10 Ml Vial) 40 mg IVPUSH DAILY@0630 [facility] Last Admin: 07/27/25 06:29 Dose: 40 mg Documented By: KATHLEEN Pharmacy Consult (Consult Rx Parenteral Nutrition Ordering) 1 each MISCELLANE DAILY PRN PRN Reason: Consult order Ropinirole HCl (Ropinirole Hcl 1 Mg Tablet) 1 mg PO BEDTIME [facility] Last Admin: 07/26/25 20:31 Dose: 1 mg Documented By: KATHLEEN Sodium Chloride (0.9 % Sodium Chloride Flush 3 Ml [facility]ringe) [facility] Last Admin: 07/27/25 07:42 Dose: Not Given Documented By: MITESH Non-Admin Reason: Previously Administered Sodium Chloride (0.9 % Sodium Chloride Flush 10 Ml Syringe) 10 ml IVFLUSH [facility] Last Admin: 07/27/25 07:43 Dose: Not Given Documented By: MITESH Non-Admin Reason: Previously Administered <Sherie Brooks PA-C - Last Filed: 07/27/25 08:25> Labs CBC & Chem 7: 07/27/25 05:02 07/27/25 05:02 <Sherie Brooks PA-C - Last Filed: 07/27/25 08:25> Labs: Laboratory Results - last 24 hr 07/26/25 07/26/25 07/26/25 11:23 17:14 21:06 MCV MCH MCHC RDW Plt Count MPV Absolute Nucleated RBC Nucleated RBC % (auto) Anion Gap Estim Creat Clear Calc Estimated GFR POC Glucose 120 H 116 H 125 H Random Glucose Calcium Phosphorus Magnesium Albumin 07/27/25 07/27/25 05:02 07:59 MCV 85.5 MCH 29.0 MCHC 34.0 RDW 15.0 Plt Count 261 MPV 9.9 Absolute Nucleated RBC 0.000 Nucleated RBC % (auto) 0.0 Anion Gap 14 Estim Creat Clear Calc 147.1 Estimated GFR > 60 POC Glucose 156 H Random Glucose 128 H Calcium 9.1 Phosphorus 3.8 Magnesium 2.1 Albumin 3.9 <Sherie Brooks PA-C - Last Filed: 07/27/25 08:25> Procedures Date of Service Date of Service: 07/27/25 <Sherie Brooks PA-C - Last Filed: 07/27/25 08:25> 07/27/25 <Zeeshan Mckinley MD - Last Filed: 07/27/25 12:20> Progress Note: A&P Assessment and plan (1) Adenocarcinoma of esophagus: Status: Acute <Sherie Brooks PA-C - Last Filed: 07/27/25 08:25> Assessment and Plan: The patient was scheduled for open G-tube/jejunostomy tube placement today He however had stated that in view of his advanced and metastatic disease, he would like to hold off on any invasive surgical procedure He stated that he would rather be on enteral nutrition His was with him during the discussion I have seen and examined the patient independently <Zeeshan Mckinley MD - Last Filed: 07/27/25 12:20> (2) Dysphagia: Status: Acute <Sherie Brooks PA-C - Last Filed: 07/27/25 08:25> Assessment and Plan: 59 year old male with recently diagnosed esophageal CA found to be widely metastatic on recent PET scan admitted with worsening dysphagia. Surgery consulted for feeding tube placement however in view of prognosis patient would like to go home on TPN and think about further plan which is fair. Will therefore hold on any surgical intervention during this admission. Has PICC line in place with TPN for nutrition. Will sign off, please reconsult if change in decision. <Sherie Brooks PA-C - Last Filed: 07/27/25 08:25> Time Spent With Patient Time: Total time managing care of this patient today ____ minutes. <Sherie Brooks PA-C - Last Filed: 07/27/25 08:25> Quality Stroke Does the patient have a stroke diagnosis?: No <ALEXA Peña Last Filed: 07/27/25 08:25> VTE Prior VTE?: No <ALEXA Peña Last Filed: 07/27/25 08:25> VTE Risk Level:: Medical - moderate - high <Sherie Brooks PA-C - Last Filed: 07/27/25 08:25> VTE Device Contraindication: Treatment Not Indicated <Sherie Brooks PA-C - Last Filed: 07/27/25 08:25> VTE Drug Contraindication: N/A - Med Ordered <Sherie Brooks PA-C - Last Filed: 07/27/25 08:25>
--- NOTE | 2025-07-27 10:35 | MHC.CLN ---
F/U PICC LINE PLACED REVIEWED LABS DISCUSSED WITH PHARMACY RECOMMEND SWITCH TO TPN AT 75ML/HR WITH 82G LIPIDS PROVIDES 2098 TOTAL KCALS (27KCALS/KG ABW), 270G DEXTROSE, 90G PROTEIN (1.2G/KG) REPLETE LYTES NEEDED NOTED PT NOT CERTAIN ABOUT PEG-PLAN FOR HOME ON TPN
[2025-07-27 11:42] LABS: Glucose, Whole Blood 141 mg/dL (60-115)
--- NOTE | 2025-07-27 12:56 | MHC.CM.PN ---
electronic medical record reviewed along with case discussed on multiple disciplinary rounds, per documentation patient was recently diagnosed with esophageal cancer now with worsening dysphagia. patient and spouse met with oncologists, with update regarding pet scan results, widely metastatic disease . patient was made DNRDNI. Currently on tpn via pic line and pain management , had [facility] meet with patient and spouse for informational meeting , Hospice reviewer also spoke with hospitalist . patient can not be on tpn and have hospice care . patient and family need time to take this in. rehabilitation case coordinator will follow up tomorrow .
--- NOTE | 2025-07-27 13:21 | P.PNIM_ITS ---
Subjective Subjective Date of Service: 07/28/25 Interval History: Adjusting pain meds ... Currently on 4 mg of Dilaudid every 2 hours Review of Systems Denies chest pain Denies shortness of breath Denies nausea vomiting diarrhea Denies fever chills Physical Exam 2 Vital Signs: Vital Signs: Last Vital Signs Temp 97.1 F 07/27/25 07:46 Pulse 70 07/27/25 07:46 Resp 16 07/27/25 07:46 BP 151/75 H 07/27/25 07:46 Pulse Ox 94 07/27/25 07:46 O2 Del Method Room Air 07/27/25 07:46 BMI result Body Mass Index 25.9 Const: Other: Awake alert comfortable appearing Resp: Other: Clear to auscultation bilaterally no rales rhonchi or wheezes Cardio: Other: No S4; positive S1-S2; no S3 murmurs rubs or gallops GI: Other: Soft nontender nondistended normoactive bowel sounds Extrem: Other: No edema bilaterally Objective Data Active Medications Acetaminophen (Acetaminophen 325 Mg Tablet) 650 mg PO Q6H PRN PRN Reason: Pain, Mild 1-3,fever,headache Last Admin: 07/27/25 08:04 Dose: 650 mg Documented By: RAMOFAJovanny Calcium Carbonate (Calcium Carbonate 750 Mg Tab.Chew) 750 mg PO Q4H PRN PRN Reason: Heartburn Dextrose (Dextrose 50 % 25 Gm/50 Ml Syringe) 25 gm IVPUSH Q15M PRN; Protocol PRN Reason: per Hypoglycemia Standing Ord. Last Admin: 07/25/25 16:16 Dose: 25 gm Documented By: MADONNA Diazepam (Diazepam 10 Mg/2 Ml Cartridge) 2.5 mg IVPUSH Q6H PRN PRN Reason: anxiety, RLS Last Admin: 07/25/25 19:18 Dose: 2.5 mg Documented By: KATHLEEN Glucose (Glucose Gel 15 Gm Gel..Gram.) 15 gm PO Q15M PRN; Protocol PRN Reason: per Hypoglycemia Standing Ord. Hydromorphone HCl (Hydromorphone Hcl 2 Mg/Ml Vial) 2 mg IVPUSH Q2H PRN; Protocol PRN Reason: Pain, Severe (Pain Scale 7-10) Last Admin: 07/27/25 12:47 Dose: 2 mg Documented By: LYNDSEY Nutrition (Parenteral) (Parenteral Nutrition) 2,040 mls @ 85 mls/hr IV .Q24H [facility]; Protocol Stop: 07/27/25 20:59 Last Admin: 07/26/25 20:31 Dose: 85 mls/hr Documented By: KTAHLEEN Nutrition (Parenteral) (Parenteral Nutrition) 1,800 mls @ 75 mls/hr IV .Q24H [facility]; Protocol Stop: 07/28/25 20:59 Insulin Human Lispro (Insulin Lispro 100 Unit/Ml 3 Ml Vial) 0 unit SUBCUT QIDACHS [facility]; Protocol Last Admin: 07/27/25 11:48 Dose: Not Given Documented By: MITESH Non-Admin Reason: low poc Lidocaine (Lidocaine 4 % Patch Adh..Patch) 1 patch TRANSDERMA DAILY [facility]; Protocol Last Admin: 07/27/25 08:03 Dose: 1 patch Documented By: MITESH Magnesium Hydroxide (Milk Of Magnesia 30 Ml Oral.Susp) 30 ml PO DAILY PRN PRN Reason: Constipation Melatonin (Melatonin 3 Mg Tablet) 6 mg PO BEDTIME PRN PRN Reason: Insomnia Pantoprazole Sodium (Pantoprazole Sodium 40 Mg/10 Ml Vial) 40 mg IVPUSH DAILY@0630 [facility] Last Admin: 07/27/25 06:29 Dose: 40 mg Documented By: KATHLEEN Pharmacy Consult (Consult Rx Parenteral Nutrition Ordering) 1 each MISCELLANE DAILY PRN PRN Reason: Consult order Ropinirole HCl (Ropinirole Hcl 1 Mg Tablet) 1 mg PO BEDTIME [facility] Last Admin: 07/26/25 20:31 Dose: 1 mg Documented By: KATHLEEN Sodium Chloride (0.9 % Sodium Chloride Flush 3 Ml Syringe) 3 ml IVFLUSH QSHIFT [facility] Last Admin: 07/27/25 07:42 Dose: Not Given Documented By: MITESH Non-Admin Reason: Previously Administered Sodium Chloride (0.9 % Sodium Chloride Flush 10 Ml Syringe) 10 ml IVFLUSH QSHIFT [facility] Last Admin: 07/27/25 07:43 Dose: Not Given Documented By: MITESH Non-Admin Reason: Previously Administered Labs 07/28/25 05:15 07/28/25 05:15 Labs: Laboratory Results - last 24 hr 07/26/25 07/26/2507/27/25 17:14 21:06 05:02 MCV 85.5 MCH 29.0 MCHC 34.0 RDW 15.0 Plt Count 261 MPV 9.9 Absolute Nucleated RBC 0.000 Nucleated RBC % (auto) 0.0 Anion Gap 14 Estim Creat Clear Calc 147.1 Estimated GFR > 60 POC Glucose 116 H 125 H Random Glucose 128 H Calcium 9.1 Phosphorus 3.8 Magnesium 2.1 Albumin 3.9 07/27/25 07/27/25 07:59 11:38 MCV MCH MCHC RDW Plt Count MPV Absolute Nucleated RBC Nucleated RBC % (auto) Anion Gap Estim Creat Clear Calc Estimated GFR POC Glucose 156 H 141 H Random Glucose Calcium Phosphorus Magnesium Albumin Assessment and Plan (1) Adenocarcinoma of esophagus: Status: Acute (2) COPD (chronic obstructive pulmonary disease): Status: Acute Plan 59 year old man admitted with dysphagia, recently diagnosed with adenocarcinoma of the esophagus. After discussion with patient he wishes to be DNR DNI. Patient and are foregoing any further therapies. Hospice consulted 1.Dysphagia secondary to poorly differentiated adenocarcinoma of the esophagus - TPN as ordered -declining any feeding tube; surgery aware -IV PPI/IV fluids 2.COPD, chronic -stable and well compensated -continue outpatient therapies; adjust as indicated 3.Diabetes mellitus type 2 -acceptable control on current therapy -hold oral agents secondary to 1. -lispro correctional scale -adjust as indicated 4.Paroxysmal atrial fibrillation -examines NSR -hold apixaban/diltiazem/Multaq -IV agents if indicated DVT prophylaxis with pneumatic compression boots Full code Requires ongoing hospitalization for TPN given inability to swallow secondary to esophageal carcinoma Quality Stroke Does the patient have a stroke diagnosis?: No VTE Prior VTE?: No VTE Risk Level:: Medical - moderate - high VTE Device Contraindication: Treatment Not Indicated VTE Drug Contraindication: N/A - Med Ordered
--- NOTE | 2025-07-27 13:39 | PC.NURSE ---
per md ok to adminiser pain meds early this AM and this afternoon. prn pain meds adjusted as ordered and early admin based off pt's pain level is ok'd by . md is paged and responds prior to each early dose request
--- NOTE | 2025-07-27 14:53 | MHC.CM.PN ---
Patient and family met with [facility] this afternoon at bedside, further discussions regarding plan of care. case making machine operator to follow up with her tomorrow.
[2025-07-27 15:12] VITALS: BP 122/71; PULSE 72; RESP 18; TEMP 36.4; O2SAT 96
[2025-07-27 16:03] LABS: Glucose, Whole Blood 140 mg/dL (60-115)
[2025-07-27 19:18] VITALS: BP 144/82; PULSE 74; RESP 18; TEMP 36.6; O2SAT 97
[2025-07-27 20:02] LABS: Glucose, Whole Blood 195 mg/dL (60-115)
[2025-07-27] MEDS: Parenteral Nutrition 1,800 ML 75 ML IV (20:20)
[2025-07-28 02:55] VITALS: BP 139/70; PULSE 71; RESP 14; TEMP 36.1; O2SAT 94
[2025-07-28 05:56] LABS: Hematocrit 40.2 % (42.0-52.0); Hemoglobin 13.5 g/dl (14.0-18.0); Mean Corpuscular HGB Conc 33.6 g/dl (31.0-36.0); Mean Corpuscular Hemoglobin 28.3 pg (27.0-33.0); Mean Corpuscular Volume 84.3 fL (80.0-98.0); NRBC Abs Auto 0.000 X10*3/uL (0.0-0.012); NRBC Pct Auto 0.0 /100WBC (0.0-0.2); Platelet Count 295 X10*3/uL (160-400); Red Blood Count 4.77 X10*6/uL (4.60-5.80); White Blood Count 9.4 X10*3/uL (4.8-10.8)
[2025-07-28 06:12] LABS: Albumin Level 4.4 g/dL (3.5-5.0); Anion Gap 14 (12-20); Blood Urea Nitrogen 12 mg/dL (9-16); Calcium 10.0 mg/dL (8.4-10.2); Carbon Dioxide 28 mmol/L (22-29); Chloride 102 mmol/L (96-108); Creatinine Clr Calc Pharmacy 138.9; Estimated Glomerular Filt Rate > 60; Magnesium 2.3 mg/dL (1.6-2.6); Potassium 4.2 mmol/L (3.3-5.1); Sodium 140 mmol/L (135-145)
[2025-07-28 07:22] VITALS: BP 162/91; PULSE 94; RESP 16; TEMP 36.3; O2SAT 96
[2025-07-28 07:35] LABS: Glucose, Whole Blood 223 mg/dL (60-115)
[2025-07-28] MEDS: 0.9 % Sodium Chloride Flush 3 ML SYRINGE IVFLUSH ×2 (07:50→17:07)
[2025-07-28] MEDS: 0.9 % Sodium Chloride Flush 10 ML SYRINGE IVFLUSH ×2 (08:21→17:06)
[2025-07-28] MEDS: Lidocaine 4 % Patch ADH..PATCH 1 PATCH TRANSDERMA (08:22)
[2025-07-28] MEDS: Morphine Sulfate Oral Sol 10 MG/5 ML SOLUTION 20 MG PO (09:41)
--- NOTE | 2025-07-28 10:57 | MHC.CLN ---
F/U CONTINUES TPN. DIET RX: FULL LIQUID WITH ENSURE TID (1050 KCALS, 60 G PROTEIN). ESOPHAGEAL CANCER WITH WIDELY METASTATIC DISEASE. UNABLE TO TAKE ADEQUATE NUTRITION PO. HOSPICE MEETING 07/27. FOLLOW FOR PLAN OF CARE. REVIEWED LABS. COMMUNICATED WITH PHARMACY. RECOMMEND CONTINUE TPN AT MAX GOAL 75ML/HR WITH 82G LIPIDS. PROVIDES 2098 TOTAL KCALS (27KCALS/KG ABW), 270G DEXTROSE, 90G PROTEIN (1.2G/KG) REPLETE LYTES NEEDED. RD AVAILABLE OFF HOURS VIA TIGER TEXT.
[2025-07-28 11:24] LABS: Glucose, Whole Blood 268 mg/dL (60-115)
[2025-07-28] MEDS: diazePAM 10 MG/2 ML CARTRIDGE 2.5 MG IVPUSH ×2 (13:29→20:20)
--- NOTE | 2025-07-28 14:31 | MHC.CM.PN ---
per rounds pt not ready for dc ? home w/hospice vs gip to let us know
[2025-07-28 15:32] VITALS: BP 150/79; PULSE 105; RESP 18; TEMP 36.6; O2SAT 94
--- NOTE | 2025-07-28 15:41 | HO.PM.IMPN ---
Subjective Subjective Date of Service: 07/28/25 Interval History: More confused today. Attempted to switch to oral morphine. .. Failed. Resumed Dilaudid Review of Systems Denies chest pain Denies shortness of breath Denies nausea vomiting diarrhea Denies fever chills Physical Exam Vital Signs: Vital Signs: Last Vital Signs Temp 97.8 F 07/28/25 15:32 Pulse 105 H 07/28/25 15:32 Resp 18 07/28/25 15:32 BP 150/79 H 07/28/25 15:32 Pulse Ox 94 07/28/25 15:32 O2 Del Method Room Air 07/28/25 15:32 BMI result Body Mass Index 25.9 Const: Other: Awake alert comfortable appearing Resp: Other: Clear to auscultation bilaterally no rales rhonchi or wheezes Cardio: Other: No S4; positive S1-S2; no S3 murmurs rubs or gallops GI: Other: Soft nontender nondistended normoactive bowel sounds Extrem: Other: No edema bilaterally Objective Data Active Medications Acetaminophen (Acetaminophen 325 Mg Tablet) 650 mg PO Q6H PRN PRN Reason: Pain, Mild 1-3,fever,headache Last Admin: 07/27/25 08:04 Dose: 650 mg Documented By: RAMOFAJovanny Calcium Carbonate (Calcium Carbonate 750 Mg Tab.Chew) 750 mg PO Q4H PRN PRN Reason: Heartburn Dextrose (Dextrose 50 % 25 Gm/50 Ml Syringe) 25 gm IVPUSH Q15M PRN; Protocol PRN Reason: per Hypoglycemia Standing Ord. Last Admin: 07/25/25 16:16 Dose: 25 gm Documented By: MADONNA Diazepam (Diazepam 10 Mg/2 Ml Cartridge) 2.5 mg IVPUSH Q6H PRN PRN Reason: anxiety, RLS Last Admin: 07/28/25 13:29 Dose: 2.5 mg Documented By: ANTONIO Glucose (Glucose Gel 15 Gm Gel..Gram.) 15 gm PO Q15M PRN; Protocol PRN Reason: per Hypoglycemia Standing Ord. Hydromorphone HCl (Hydromorphone Hcl 2 Mg/Ml Vial) 4 mg IVPUSH Q2H PRN; Protocol PRN Reason: Pain, Severe (Pain Scale 7-10) Last Admin: 07/28/25 14:58 Dose: 4 mg Documented By: ANTONIO Nutrition (Parenteral) (Parenteral Nutrition) 1,800 mls @ 75 mls/hr IV .Q24H [facility]; Protocol Stop: 07/28/25 20:59 Last Admin: 07/27/25 20:20 Dose: 75 mls/hr Documented By: LUIGI Nutrition (Parenteral) (Parenteral Nutrition) 1,800 mls @ 75 mls/hr IV .Q24H [facility]; Protocol Stop: 07/29/25 20:59 Insulin Human Lispro (Insulin Lispro 100 Unit/Ml 3 Ml Vial) 0 unit SUBCUT QIDACHS [facility]; Protocol Last Admin: 07/28/25 11:34 Dose: 6 unit Documented By: ANTONIO Lactulose (Lactulose 20 Gm/30 Ml Solution) 30 gm PO DAILY PRN PRN Reason: Constipation Lidocaine (Lidocaine 4 % Patch Adh..Patch) 1 patch TRANSDERMA DAILY [facility]; Protocol Last Admin: 07/28/25 08:22 Dose: 1 patch Documented By: ANTONIO Magnesium Hydroxide (Milk Of Magnesia 30 Ml Oral.Susp) 30 ml PO DAILY PRN PRN Reason: Constipation Melatonin (Melatonin 3 Mg Tablet) 6 mg PO BEDTIME PRN PRN Reason: Insomnia Morphine Sulfate (Morphine Sulfate Oral Vivi 10 Mg/5 Ml Solution) 20 mg PO ONCE [facility] Last Admin: 07/28/25 09:41 Dose: 20 mg Documented By: ANTONIO Pantoprazole Sodium (Pantoprazole Sodium 40 Mg/10 Ml Vial) 40 mg IVPUSH DAILY@0630 [facility] Last Admin: 07/28/25 05:43 Dose: 40 mg Documented By: SHELDON Pharmacy Consult (Consult Rx Parenteral Nutrition Ordering) 1 each MISCELLANE DAILY PRN PRN Reason: Consult order Ropinirole HCl (Ropinirole Hcl 1 Mg Tablet) 1 mg PO BEDTIME [facility] Last Admin: 07/27/25 20:20 Dose: 1 mg Documented By: LUIGI Sodium Chloride (0.9 % Sodium Chloride Flush 3 Ml Syringe) 3 ml IVFLUSH [facility] Last Admin: 07/28/25 07:50 Dose: 3 ml Documented By: ANTONIO Sodium Chloride (0.9 % Sodium Chloride Flush 10 Ml Syringe) 10 ml IVFLUSH [facility] Last Admin: 07/28/25 08:21 Dose: 10 ml Documented By: ANTONIO Labs 07/28/25 05:15 07/28/25 05:15 Labs: Laboratory Results - last 24 hr 07/27/25 07/27/25 07/28/25 15:57 19:58 05:15 MCV 84.3 MCH 28.3 MCHC 33.6 RDW 14.8 Plt Count 295 MPV 9.9 Absolute Nucleated RBC 0.000 Nucleated RBC % (auto) 0.0 Anion Gap 14 Estim Creat Clear Calc 138.9 Estimated GFR > 60 POC Glucose 140 H 195 H Random Glucose 205 H Calcium 10.0 D Phosphorus 4.2 Magnesium 2.3 Albumin 4.4 07/28/25 07/28/25 07:29 11:19 MCV MCH MCHC RDW Plt Count MPV Absolute Nucleated RBC Nucleated RBC % (auto) Anion Gap Estim Creat Clear Calc Estimated GFR POC Glucose 223 H 268 H Random Glucose Calcium Phosphorus Magnesium Albumin Assessment and Plan (1) Adenocarcinoma of esophagus: Status: Acute Plan 59 year old man admitted with dysphagia, recently diagnosed with adenocarcinoma of the esophagus. After discussion with patient he wishes to be DNR DNI. Patient and are foregoing any further therapies. Hospice consulted 1.Dysphagia secondary to poorly differentiated adenocarcinoma of the esophagus - TPN as ordered -attempted to use oral morphine; did not cover pain Dilaudid restarted -patient retracted DNR DNI; wishes full code implemented -IV PPI/IV fluids 2.COPD, chronic -stable and well compensated -continue outpatient therapies; adjust as indicated 3.Diabetes mellitus type 2 -acceptable control on current therapy -hold oral agents secondary to 1. -lispro correctional scale -adjust as indicated 4.Paroxysmal atrial fibrillation -examines NSR -hold apixaban/diltiazem/Multaq -IV agents if indicated DVT prophylaxis with pneumatic compression boots Full code Requires ongoing hospitalization for TPN given inability to swallow secondary to esophageal carcinoma; Quality Stroke Does the patient have a stroke diagnosis?: No VTE Prior VTE?: No VTE Risk Level:: Medical - moderate - high VTE Device Contraindication: Treatment Not Indicated VTE Drug Contraindication: N/A - Med Ordered
[2025-07-28 16:20] LABS: Glucose, Whole Blood 206 mg/dL (60-115)
[2025-07-28 19:14] VITALS: BP 123/78; PULSE 88; RESP 18; TEMP 36.8; O2SAT 95
[2025-07-28 19:15] LABS: Glucose, Whole Blood 180 mg/dL (60-115)
[2025-07-28] MEDS: Parenteral Nutrition 1,800 ML 75 ML IV (20:27)
--- NOTE | 2025-07-28 22:52 | PC.NURSE ---
Patient experiencing increased confusion, unsteadiness on feet, and pulling at his PICC line. Camera placed in patient room for patient safety.
[2025-07-29 03:39] VITALS: BP 140/80; PULSE 74; RESP 18; TEMP 36.2; O2SAT 93
--- NOTE | 2025-07-29 03:52 | PM.EVENT ---
Event Note Date of Service: 07/29/25 Event Note: 0352 AM, pt bladder scanned with 569 cc of urine in bladder, feeling some discomfort on dilaudid Q2H with esophageal cancer and mets. Order placed to have fletcher inserted to help with overall comfort/ ability to rest and UA requested to rule out UTI. Pt was seen at the bedside, tolerated fletcher placement. Over 550 ccs obtained. Time Spent With Patient Time: Total time managing care of this patient today ____ minutes.
--- NOTE | 2025-07-29 04:50 | PC.NURSE ---
Patient noted to not be urinating when getting up to go to the bathroom, Patient was bladder scanned at 0427 and noted to have 569 mL's of urine in his bladder. [place] Sam notified and orders were received to place a fletcher. Educated patient on need for fletcher catheter. Fletcher successfully placed and draining clear yellow urine.
[2025-07-29 05:12] LABS: Appearance Urine Clear; Glucose Urine UA >=1000 mg/dL (Negative); PH 6.0 (5.0-9.0); Specific Gravity - Urine >= 1.030 (1.005-1.025); UMIC TRIGGER UA YES
--- NOTE | 2025-07-29 06:03 | PC.NURSE ---
Patient noted to not be urinating when getting up to go to the bathroom, Patient was bladder scanned at approximately 0330 and noted to have 569 mL's of urine in his bladder. [place] [facility] notified and orders were received to place a fletcher. Educated patient on need for fletcher catheter. Fletcher successfully placed and draining clear yellow urine.
[2025-07-29 06:45] LABS: Hematocrit 38.0 % (42.0-52.0); Hemoglobin 12.5 g/dl (14.0-18.0); Mean Corpuscular HGB Conc 32.9 g/dl (31.0-36.0); Mean Corpuscular Hemoglobin 27.9 pg (27.0-33.0); Mean Corpuscular Volume 84.8 fL (80.0-98.0); NRBC Abs Auto 0.000 X10*3/uL (0.0-0.012); NRBC Pct Auto 0.0 /100WBC (0.0-0.2); Platelet Count 267 X10*3/uL (160-400); Red Blood Count 4.48 X10*6/uL (4.60-5.80); White Blood Count 12.6 X10*3/uL (4.8-10.8)
[2025-07-29 07:00] LABS: Albumin Level 4.0 g/dL (3.5-5.0); Anion Gap 14 (12-20); Blood Urea Nitrogen 20 mg/dL (9-16); Calcium 9.4 mg/dL (8.4-10.2); Carbon Dioxide 31 mmol/L (22-29); Chloride 100 mmol/L (96-108); Creatinine Clr Calc Pharmacy 136.4; Estimated Glomerular Filt Rate > 60; Magnesium 2.3 mg/dL (1.6-2.6); Potassium 3.7 mmol/L (3.3-5.1); Sodium 141 mmol/L (135-145)
[2025-07-29 07:15] VITALS: BP 147/72; PULSE 76; RESP 16; TEMP 36.6; O2SAT 95
[2025-07-29 07:41] LABS: Glucose, Whole Blood 202 mg/dL (60-115)
[2025-07-29] MEDS: Lidocaine 4 % Patch ADH..PATCH 1 PATCH TRANSDERMA (08:03)
[2025-07-29] MEDS: 0.9 % Sodium Chloride Flush 10 ML SYRINGE IVFLUSH ×3 (08:07→22:36)
[2025-07-29 11:19] LABS: Glucose, Whole Blood 213 mg/dL (60-115)
[2025-07-29] MEDS: Sucralfate Oral Suspension 1 GM/10 ML ORAL.SUSP PO ×3 (11:26→20:35)
--- NOTE | 2025-07-29 13:42 | P.PNIM_ITS ---
Subjective Subjective Date of Service: 07/29/25 Interval History: hungry for pizza past attempts at swallowing led to feeling of food stuck in esophagus tolerating small amounts of liquids on TPN pain under control Review of Systems Review of Systems: Yes all other systems are reviewed and are negative Physical Exam 2 Vital Signs: Vital Signs: Last Vital Signs Temp 97.9 F 07/29/25 07:15 Pulse 76 07/29/25 07:15 Resp 16 07/29/25 07:15 BP 147/72 H 07/29/25 07:15 Pulse Ox 95 07/29/25 07:15 O2 Del Method Room Air 07/29/25 07:15 BMI result Body Mass Index 25.9 Gen: in no acute distress HEENT: sclera anicteric, moist mucus membranes Neck: supple Lungs: clear to auscultation bilaterally Heart: regular rate and rhythm, no murmurs Abd: soft, non-tender, non-distended Ext: no edema Skin: warm/well-perfused Neuro: alert and oriented x3, no focal findings Psych: appropriate affect Objective Data Active Medications Acetaminophen (Acetaminophen 325 Mg Tablet) 650 mg PO Q6H PRN PRN Reason: Pain, Mild 1-3,fever,headache Last Admin: 07/29/25 04:42 Dose: 650 mg Documented By: LUIGI Albuterol Sulfate (Albuterol Sulfate 90 Mcg 8 Gm Inhaler) 2 puff INHALE Q4H PRN PRN Reason: for wheezing Apixaban (Apixaban 5 Mg Tablet) 5 mg PO BID [facility] On Hold: 07/29/25 10:24 Last Admin: 07/29/25 09:43 Dose: Not Given Documented By: KIT Non-Admin Reason: difficulty swallowing Calcium Carbonate (Calcium Carbonate 750 Mg Tab.Chew) 750 mg PO Q4H PRN PRN Reason: Heartburn Dextrose (Dextrose 50 % 25 Gm/50 Ml Syringe) 25 gm IVPUSH Q15M PRN; Protocol PRN Reason: per Hypoglycemia Standing Ord. Last Admin: 07/25/25 16:16 Dose: 25 gm Documented By: MADONNA Diazepam (Diazepam 10 Mg/2 Ml Cartridge) 2.5 mg IVPUSH Q6H PRN PRN Reason: anxiety, RLS Last Admin: 07/28/25 20:20 Dose: 2.5 mg Documented By: LUIGI Diltiazem HCl (Diltiazem Hcl Cd 120 Mg Cap.Er.Deg) 120 mg PO DAILY [facility]; Protocol Last Admin: 07/29/25 09:43 Dose: Not Given Documented By: KIT Non-Admin Reason: Difficulty swallowing Dronedarone (Dronedarone Hcl 400 Mg Tablet) 400 mg PO BID [facility] Last Admin: 07/29/25 09:43 Dose: Not Given Documented By: KIT Non-Admin Reason: Difficulty swallowing Enoxaparin Sodium (Enoxaparin Sodium 120 Mg/0.8 Ml Syringe) 120 mg 1.5 mg/kg (120 mg) SUBCUT Q24H [facility] Last Admin: 07/29/25 11:28 Dose: 120 mg Documented By: KIT Glucose (Glucose Gel 15 Gm Gel..Gram.) 15 gm PO Q15M PRN; Protocol PRN Reason: per Hypoglycemia Standing Ord. Hydromorphone HCl (Hydromorphone Hcl 2 Mg/Ml Vial) 4 mg IVPUSH Q2H PRN; Protocol PRN Reason: Pain, Severe (Pain Scale 7-10) Last Admin: 07/29/25 12:13 Dose: 4 mg Documented By: KIT Nutrition (Parenteral) (Parenteral Nutrition) 1,800 mls @ 75 mls/hr IV .Q24H [facility]; Protocol Stop: 07/29/25 20:59 Last Admin: 07/28/25 20:27 Dose: 75 mls/hr Documented By: LUIGI Nutrition (Parenteral) (Parenteral Nutrition) 1,800 mls @ 75 mls/hr IV .Q24H [facility]; Protocol Stop: 07/30/25 20:59 Insulin Human Lispro (Insulin Lispro 100 Unit/Ml 3 Ml Vial) 0 unit SUBCUT QIDACHS [facility]; Protocol Last Admin: 07/29/25 11:29 Dose: 4 unit Documented By: KIT Lactulose (Lactulose 20 Gm/30 Ml Solution) 30 gm PO DAILY PRN PRN Reason: Constipation Lidocaine (Lidocaine 4 % Patch Adh..Patch) 1 patch TRANSDERMA DAILY [facility]; Protocol Last Admin: 07/29/25 08:03 Dose: 1 patch Documented By: KIT Magnesium Hydroxide (Milk Of Magnesia 30 Ml Oral.Susp) 30 ml PO DAILY PRN PRN Reason: Constipation Melatonin (Melatonin 3 Mg Tablet) 6 mg PO BEDTIME PRN PRN Reason: Insomnia Morphine Sulfate (Morphine Sulfate Oral Vivi 10 Mg/5 Ml Solution) 20 mg PO ONCE [facility] Last Admin: 07/28/25 09:41 Dose: 20 mg Documented By: ANTONIO Pharmacy Consult (Consult Rx Parenteral Nutrition Ordering) 1 each MISCELLANE DAILY PRN PRN Reason: Consult order Ropinirole HCl (Ropinirole Hcl 1 Mg Tablet) 1 mg PO BEDTIME [facility] Last Admin: 07/28/25 20:19 Dose: 1 mg Documented By: LUIGI Sodium Chloride (0.9 % Sodium Chloride Flush 3 Ml Syringe) 3 ml IVFLUSH [facility] Last Admin: 07/29/25 07:44 Dose: Not Given Documented By: KIT Non-Admin Reason: PICC Sodium Chloride (0.9 % Sodium Chloride Flush 10 Ml Syringe) 10 ml IVFLUSH [facility] Last Admin: 07/29/25 08:07 Dose: 10 ml Documented By: KIT Sucralfate (Sucralfate Oral Suspension 1 Gm/10 Ml Oral.Susp) 1 gm PO QIDACHS [facility] Last Admin: 07/29/25 11:26 Dose: 1 gm Documented By: KIT Labs 07/29/25 06:17 07/29/25 06:17 Labs: Laboratory Results - last 24 hr 07/28/25 07/28/25 07/29/25 16:01 19:12 04:59 MCV MCH MCHC RDW Plt Count MPV Absolute Nucleated RBC Nucleated RBC % (auto) Anion Gap Estim Creat Clear Calc Estimated GFR POC Glucose 206 H 180 H Random Glucose Calcium Phosphorus Magnesium Albumin Urine Color Yellow Urine Appearance Clear Urine pH 6.0 Ur Specific Shorter >= 1.030 H Urine Protein 30 (1+) H Urine Glucose (UA) >=1000 H Urine Ketones Negative Urine Blood Trace H Urine Nitrite Negative Ur Leukocyte Esterase Negative Urine RBC 3-5 H Urine WBC 0-5 Ur Squamous Epith Cells 0-2 Urine Bacteria None Seen Hyaline Casts 0-2 07/29/25 07/29/25 07/29/25 06:17 07:21 11:11 MCV 84.8 MCH 27.9 MCHC 32.9 RDW 15.0 Plt Count 267 MPV 9.8 Absolute Nucleated RBC 0.000 Nucleated RBC % (auto) 0.0 Anion Gap 14 Estim Creat Clear Calc 136.4 Estimated GFR > 60 POC Glucose 202 H 213 H Random Glucose 176 H Calcium 9.4 Phosphorus 5.0 H Magnesium 2.3 Albumin 4.0 Urine Color Urine Appearance Urine pH Ur Specific Shorter Urine Protein Urine Glucose (UA) Urine Ketones Urine Blood Urine Nitrite Ur Leukocyte Esterase Urine RBC Urine WBC Ur Squamous Epith Cells Urine Bacteria Hyaline Casts Assessment and Plan (1) Adenocarcinoma of esophagus: Status: Acute Plan d5, 59yo M with metastatic esophageal adenoCA admitted due to dysphagia dysphagia due to poorly differentiated adenocarcinoma of the esophagus - PICC placed, on TPN - on IV hydromorphone, trial of oral morphine solution - 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 Quality Stroke Does the patient have a stroke diagnosis?: No VTE Prior VTE?: No VTE Risk Level:: Medical - moderate - high VTE Device Contraindication: Treatment Not Indicated VTE Drug Contraindication: N/A - Med Ordered
[2025-07-29 15:36] VITALS: BP 119/62; PULSE 82; RESP 16; TEMP 36.2; O2SAT 94
[2025-07-29 15:50] LABS: Glucose, Whole Blood 232 mg/dL (60-115)
[2025-07-29 20:00] VITALS: BP 163/79; PULSE 91; RESP 18; TEMP 36.4; O2SAT 95
[2025-07-29] MEDS: diazePAM 10 MG/2 ML CARTRIDGE 2.5 MG IVPUSH (20:40)
[2025-07-29] MEDS: Parenteral Nutrition 1,800 ML 75 ML IV (20:50)
[2025-07-29] MEDS: 0.9 % Sodium Chloride Flush 3 ML SYRINGE IVFLUSH ×2 (20:51→21:26)
[2025-07-29 20:56] LABS: Glucose, Whole Blood 235 mg/dL (60-115)
[2025-07-30 03:09] VITALS: BP 133/81; PULSE 90; RESP 18; TEMP 36.8; O2SAT 95
[2025-07-30] MEDS: diazePAM 10 MG/2 ML CARTRIDGE 2.5 MG IVPUSH ×2 (04:11→11:34)
[2025-07-30 06:22] LABS: Hematocrit 40.6 % (42.0-52.0); Hemoglobin 13.0 g/dl (14.0-18.0); Mean Corpuscular HGB Conc 32.0 g/dl (31.0-36.0); Mean Corpuscular Hemoglobin 27.8 pg (27.0-33.0); Mean Corpuscular Volume 86.9 fL (80.0-98.0); NRBC Abs Auto 0.000 X10*3/uL (0.0-0.012); NRBC Pct Auto 0.0 /100WBC (0.0-0.2); Platelet Count 251 X10*3/uL (160-400); Red Blood Count 4.67 X10*6/uL (4.60-5.80); White Blood Count 10.9 X10*3/uL (4.8-10.8)
[2025-07-30 06:37] LABS: Albumin Level 4.0 g/dL (3.5-5.0); Anion Gap 15 (12-20); Blood Urea Nitrogen 16 mg/dL (9-16); Calcium 9.2 mg/dL (8.4-10.2); Carbon Dioxide 31 mmol/L (22-29); Chloride 101 mmol/L (96-108); Creatinine Clr Calc Pharmacy 136.4; Estimated Glomerular Filt Rate > 60; Magnesium 2.4 mg/dL (1.6-2.6); Potassium 4.0 mmol/L (3.3-5.1); Sodium 143 mmol/L (135-145)
[2025-07-30 07:18] VITALS: BP 119/71; PULSE 90; RESP 16; TEMP 36.1; O2SAT 98
[2025-07-30 07:22] LABS: Glucose, Whole Blood 226 mg/dL (60-115)
[2025-07-30] MEDS: Sucralfate Oral Suspension 1 GM/10 ML ORAL.SUSP PO ×3 (07:40→16:22)
[2025-07-30 08:59] VITALS: BP 128/75
[2025-07-30] MEDS: dilTIAZem HCL CD 120 MG CAP.ER.DEG PO (09:09)
--- NOTE | 2025-07-30 10:33 | HO.PM.IMPN ---
Subjective Subjective Date of Service: 07/30/25 Interval History: pain controlled with IV Dilaudid 4 mg IV q2h refuses pills does not want hospice as he does not want to be DNR/DNI recognizes his prognosis is poor Review of Systems Review of Systems: Yes all other systems are reviewed and are negative Physical Exam Vital Signs: Vital Signs: Last Vital Signs Temp 97.0 F 07/30/25 07:18 Pulse 90 07/30/25 07:18 Resp 16 07/30/25 07:18 BP 128/75 07/30/25 08:59 Pulse Ox 98 07/30/25 07:18 O2 Del Method Room Air 07/30/25 07:18 BMI result Body Mass Index 25.9 Gen: in no acute distress HEENT: sclera anicteric, moist mucus membranes Neck: supple Lungs: clear to auscultation bilaterally Heart: regular rate and rhythm, no murmurs Abd: soft, non-tender, non-distended Ext: no edema, RUE PICC Skin: warm/well-perfused Neuro: alert and oriented x3, no focal findings Psych: appropriate affect Objective Data Active Medications Acetaminophen (Acetaminophen 325 Mg Tablet) 650 mg PO Q6H PRN PRN Reason: Pain, Mild 1-3,fever,headache Last Admin: 07/29/25 04:42 Dose: 650 mg Documented By: LUIGI Albuterol Sulfate (Albuterol Sulfate 90 Mcg 8 Gm Inhaler) 2 puff INHALE Q4H PRN PRN Reason: for wheezing Alteplase, Recombinant (Alteplase Cath Clear 2 Mg/2 Ml Vial) 1 mg INTRACATH ONCE ONE Stop: 07/30/25 10:33 Alteplase, Recombinant (Alteplase Cath Clear 2 Mg/2 Ml Vial) 1 mg INTRACATH ONCE ONE Stop: 07/30/25 10:33 Apixaban (Apixaban 5 Mg Tablet) 5 mg PO BID [facility] On Hold: 07/29/25 10:24 Last Admin: 07/29/25 09:43 Dose: Not Given Documented By: KIT Non-Admin Reason: difficulty swallowing Calcium Carbonate (Calcium Carbonate 750 Mg Tab.Chew) 750 mg PO Q4H PRN PRN Reason: Heartburn Dextrose (Dextrose 50 % 25 Gm/50 Ml Syringe) 25 gm IVPUSH Q15M PRN; Protocol PRN Reason: per Hypoglycemia Standing Ord. Last Admin: 07/25/25 16:16 Dose: 25 gm Documented By: MADONNA Diazepam (Diazepam 10 Mg/2 Ml Cartridge) 2.5 mg IVPUSH Q6H PRN PRN Reason: anxiety, RLS Last Admin: 07/30/25 04:11 Dose: 2.5 mg Documented By: BEAU Diltiazem HCl (Diltiazem Hcl Cd 120 Mg Cap.Er.Deg) 120 mg PO DAILY [facility]; Protocol Last Admin: 07/30/25 09:09 Dose: 120 mg Documented By: KIT Dronedarone (Dronedarone Hcl 400 Mg Tablet) 400 mg PO BID [facility] Last Admin: 07/30/25 09:09 Dose: 400 mg Documented By: KIT Enoxaparin Sodium (Enoxaparin Sodium 120 Mg/0.8 Ml Syringe) 120 mg 1.5 mg/kg (120 mg) SUBCUT Q24H [facility] Last Admin: 07/29/25 11:28 Dose: 120 mg Documented By: KIT Glucose (Glucose Gel 15 Gm Gel..Gram.) 15 gm PO Q15M PRN; Protocol PRN Reason: per Hypoglycemia Standing Ord. Hydromorphone HCl (Hydromorphone Hcl 2 Mg/Ml Vial) 4 mg IVPUSH Q2H PRN; Protocol PRN Reason: Pain, Severe (Pain Scale 7-10) Last Admin: 07/30/25 09:53 Dose: 4 mg Documented By: KIT Nutrition (Parenteral) (Parenteral Nutrition) 1,800 mls @ 75 mls/hr IV .Q24H [facility]; Protocol Stop: 07/30/25 20:59 Last Admin: 07/29/25 20:50 Dose: 75 mls/hr Documented By: BEAU Nutrition (Parenteral) (Parenteral Nutrition) 1,800 mls @ 75 mls/hr IV .Q24H [facility]; Protocol Stop: 07/31/25 20:59 Insulin Human Lispro (Insulin Lispro 100 Unit/Ml 3 Ml Vial) 0 unit SUBCUT QIDACHS [facility]; Protocol Last Admin: 07/30/25 07:39 Dose: 4 unit Documented By: KIT Lactulose (Lactulose 20 Gm/30 Ml Solution) 30 gm PO DAILY PRN PRN Reason: Constipation Lidocaine (Lidocaine 4 % Patch Adh..Patch) 1 patch TRANSDERMA DAILY [facility]; Protocol Last Admin: 07/30/25 09:13 Dose: Not Given Documented By: KIT Non-Admin Reason: Patient Refused Magnesium Hydroxide (Milk Of Magnesia 30 Ml Oral.Susp) 30 ml PO DAILY PRN PRN Reason: Constipation Melatonin (Melatonin 3 Mg Tablet) 6 mg PO BEDTIME PRN PRN Reason: Insomnia Morphine Sulfate (Morphine Sulfate Oral Vivi 10 Mg/5 Ml Solution) 20 mg PO ONCE [facility] Last Admin: 07/28/25 09:41 Dose: 20 mg Documented By: ANTONIO Pharmacy Consult (Consult Rx Parenteral Nutrition Ordering) 1 each MISCELLANE DAILY PRN PRN Reason: Consult order Ropinirole HCl (Ropinirole Hcl 1 Mg Tablet) 1 mg PO BEDTIME [facility] Last Admin: 07/29/25 20:35 Dose: 1 mg Documented By: BEAU Sodium Chloride (0.9 % Sodium Chloride Flush 3 Ml Syringe) [facility] Last Admin: 07/29/25 21:26 Dose: 3 ml Documented By: BEAU Sodium Chloride (0.9 % Sodium Chloride Flush 10 Ml Syringe) 10 ml IVFLUSH QSKYFT [facility] Last Admin: 07/30/25 08:05 Dose: Not Given Documented By: KIT Non-Admin Reason: Previously Administered Sucralfate (Sucralfate Oral Suspension 1 Gm/10 Ml Oral.Susp) 1 gm PO QIDACHS [facility] Last Admin: 07/30/25 07:40 Dose: 1 gm Documented By: KIT Labs 07/30/25 05:07 07/30/25 05:07 Labs: Laboratory Results - last 24 hr 07/29/25 07/29/25 07/29/25 11:11 15:39 20:52 MCV MCH MCHC RDW Plt Count MPV Absolute Nucleated RBC Nucleated RBC % (auto) Anion Gap Estim Creat Clear Calc Estimated GFR POC Glucose 213 H 232 H 235 H Random Glucose Calcium Phosphorus Magnesium Albumin 07/30/25 07/30/25 05:07 07:16 MCV 86.9 MCH 27.8 MCHC 32.0 RDW 15.1 Plt Count 251 MPV 10.2 Absolute Nucleated RBC 0.000 Nucleated RBC % (auto) 0.0 Anion Gap 15 Estim Creat Clear Calc 136.4 Estimated GFR > 60 POC Glucose 226 H Random Glucose 211 H Calcium 9.2 Phosphorus 4.1 Magnesium 2.4 Albumin 4.0 Assessment and Plan (1) Adenocarcinoma of esophagus: Status: Acute Plan d6, 59yo M with metastatic esophageal adenoCA admitted due to dysphagia dysphagia due to poorly differentiated adenocarcinoma of the esophagus - PICC placed, on TPN - on IV hydromorphone, will consult Pharmacy re changing to fentanyl 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 Quality Stroke Does the patient have a stroke diagnosis?: No VTE Prior VTE?: No VTE Risk Level:: Medical - moderate - high VTE Device Contraindication: Treatment Not Indicated VTE Drug Contraindication: N/A - Med Ordered
--- NOTE | 2025-07-30 10:44 | MHC.CLN ---
Addendum entered by Leanna Amaral RD 07/30/25 10:56: RD AVAILABLE OFF HOURS VIA TIGER TEXT. Original Note: F/U CONTINUES TPN. DIET RX: FULL LIQUID WITH ENSURE TID (1050 KCALS, 60 G PROTEIN). ESOPHAGEAL CANCER WITH WIDELY METASTATIC DISEASE. UNABLE TO TAKE ADEQUATE NUTRITION PO. REVIEWED LABS. COMMUNICATED WITH PHARMACY. RECOMMEND CONTINUE TPN AT MAX GOAL 75ML/HR WITH 82G LIPIDS. PROVIDES 2098 TOTAL KCALS (27KCALS/KG ABW), 270G DEXTROSE, 90G PROTEIN (1.2G/KG) REPLETE LYTES NEEDED. DECLINED HOSPICE SERVICE. FOLLOW FOR PLAN OF CARE.
[2025-07-30] MEDS: Alteplase Cath Clear 2 MG/2 ML VIAL 1 MG INTRACATH ×3 (11:34→16:10)
[2025-07-30 11:40] LABS: Glucose, Whole Blood 193 mg/dL (60-115)
--- NOTE | 2025-07-30 13:57 | MHC.SL.SWA ---
Speech Pathologist Impression: WFL oropharyngeal, suspected Moderate-Severe esophageal dysphagia Risk of Aspiration Due to: recent diagnosis of adenocarcinoma of esophagus (widely metastatic disease) Dysphasia Diet Status: UPGRADE to NDD1 (puree), THIN liquids as secondary/comfort; Medications NPO- in liquid or IV Liquid Consistency and Strategies for Safe Swallow: Liquid Intake Recommendation: Thin Liquid Intake Strategies: Solid Food Consistency: Dietary Recommendations: Pureed (NDD1) Additional Modifications to Solid Foods: Oral Medication Intake: NPO Please contact the pharmacy regarding appropriate crushable or liquid drug formulations that are available whenever modified delivery is recommended. Compensatory Strategies and Precautions to be Taken for Safe Swallow: Sit Upright Slow self-feeding rate Small sips/bites Alternate liquids/solids Remain upright after meal (30 minutes) Supervision While Eating and Drinking for Safe Swallow: Intermittent Supervision Foods to Avoid: Swallowing Recommended Treatments: Compensatory Strategies Recommendation for Speech: Inpatient Speech Therapy Comment: Patient presents with WFL oropharyngeal dysphagia, moderate-severe suspected esophageal dysphagia. Patient reporting gradually losing ability to swallow over past couple of days. Reports small/minimal amounts of PO resulting in Globus sensation. Patient requiring extensive encouragement to participate in evaluation. Patient accepting small amount of water and pudding. Oropharyngeal gamboa, patient with timely swallow and no s/sx of penetration/aspiration. Suspected esophageal given heavy Globus sensation with minimal amount of PO as well as recent diagnosis of esophageal adenocarcinoma. Patient and family aware of diagnosis and prognosis. Patient not accepting hospice. Patient currently on full liquid diet and TPN via PICC. Recommend UPGRADE to NDD1 (puree), THIN liquids- secondary/comfort for patient as he will likely not tolerate enough PO to meet daily caloric needs. RN trialing medications crushed in puree; patient not tolerating and reporting that he will not take medications this way. Recommend medications dissolved in liquids or via IV. All questions answered; family and patient agreeable to POC. REFERENCE DATA EXPERT to continue to follow. Frequency/Duration: M-F Daily Date Range for Service Req: Timeline to reassess: Medical Practice Assistant Clinican/Clinical Fellow: No Supervisory Statement: I have reviewed and agree with the student/clinical fellow's documentation: No Speech Language Pathologist: Abigail Cervantes M.A., [facility]-REFERENCE DATA EXPERT
--- NOTE | 2025-07-30 14:53 | MHC.CM.PN ---
EMR REVIEWED, PT REMAINS ON TPN AND IV PAIN MEDICATION, PER MD/NSG PT WANTS TO REMAIN A FULL CODE, PER SPEECH OKAY TO ADVANCE DIET TO PUREED W/THIN LIQUIDS, PT WILL NEED SNF PLACEMENT ONCE OFF TPN AND IV PAIN MEDS, CM WILL CONT TO FOLLOW DC NEEDS.
[2025-07-30 15:06] VITALS: BP 126/78; PULSE 89; RESP 18; TEMP 36.6; O2SAT 96
[2025-07-30 16:08] LABS: Glucose, Whole Blood 228 mg/dL (60-115)
[2025-07-30] MEDS: Morphine Sulfate Oral Sol 10 MG/5 ML SOLUTION 40 MG PO (16:11)
--- NOTE | 2025-07-30 18:22 | PC.NURSE ---
Pt reassessed at 1805 after one time dose PO morphine per OCT. Pt asleep, when awoken pt stated I feel like crap . Pt then fell back asleep, pt currently resting in bed with eyes closed, breathing even and unlabored. aware.
[2025-07-30 19:59] VITALS: BP 154/89; PULSE 88; RESP 14; TEMP 36.4; O2SAT 95
[2025-07-30] MEDS: Parenteral Nutrition 1,800 ML 75 ML IV (20:12)
[2025-07-30 20:42] LABS: Glucose, Whole Blood 209 mg/dL (60-115)
[2025-07-30] MEDS: 0.9 % Sodium Chloride Flush 10 ML SYRINGE IVFLUSH (21:36)
[2025-07-30] MEDS: 0.9 % Sodium Chloride Flush 3 ML SYRINGE IVFLUSH (21:36)
[2025-07-31] VITALS (8 sets, daily range): BP systolic 135–140; BP diastolic 70–84; PULSE 80–93; RESP 12–20; TEMP 36.1–36.8; O2SAT 94–96
[2025-07-31] MEDS: diazePAM 10 MG/2 ML CARTRIDGE 2.5 MG IVPUSH ×2 (00:07→13:43)
[2025-07-31 07:22] LABS: Glucose, Whole Blood 232 mg/dL (60-115)
[2025-07-31] MEDS: 0.9 % Sodium Chloride Flush 10 ML SYRINGE IVFLUSH ×2 (08:02→20:42)
[2025-07-31 11:12] LABS: Anion Gap 12 (12-20); Blood Urea Nitrogen 16 mg/dL (9-16); Calcium 9.3 mg/dL (8.4-10.2); Carbon Dioxide 23 mmol/L (22-29); Chloride 107 mmol/L (96-108); Creatinine Clr Calc Pharmacy 141.6; Estimated Glomerular Filt Rate > 60; Magnesium 2.3 mg/dL (1.6-2.6); Potassium 4.1 mmol/L (3.3-5.1); Sodium 138 mmol/L (135-145)
[2025-07-31 11:25] LABS: Glucose, Whole Blood 213 mg/dL (60-115)
--- NOTE | 2025-07-31 11:30 | PC.NURSE ---
Patient ambulated down nava with gait belt, walker and 2 person stand by assist with wheel chair following behind. Patient unsteady and weak, patient determined to keep walking but started to become more unsteady and increased knee buckling and face grimacing. Patient placed in wheel chair and wheeled back to room and stand and pivot to recliner chair. Patient became tearful about how weak he was, reassurance provided. PRN pain medications administered. remains at bedside, call wesley and chair alarm in place.
--- NOTE | 2025-07-31 11:37 | P.PNIM_ITS ---
Subjective Subjective Date of Service: 07/31/25 Interval History: c/o pain, more sedated than yesterday still does not want to go on hospice minimal relief from PO morphine Review of Systems Review of Systems: Yes all other systems are reviewed and are negative Physical Exam 2 Vital Signs: Vital Signs: Last Vital Signs Temp 97.0 F 07/31/25 07:20 Pulse 80 07/31/25 07:20 Resp 16 07/31/25 11:24 BP 135/78 07/31/25 07:20 Pulse Ox 94 07/31/25 07:20 O2 Del Method Room Air 07/31/25 07:20 BMI result Body Mass Index 25.9 Gen: ill-appearing HEENT: sclera anicteric, moist mucus membranes Neck: supple Lungs: clear to auscultation bilaterally Heart: regular rate and rhythm, no murmurs Abd: soft, non-tender, non-distended Ext: no edema, RUE PICC Skin: warm/well-perfused Neuro: alert and oriented x3, no focal findings Psych: appropriate affect Objective Data Active Medications Albuterol Sulfate (Albuterol Sulfate 90 Mcg 8 Gm Inhaler) 2 puff INHALE Q4H PRN PRN Reason: for wheezing Apixaban (Apixaban 5 Mg Tablet) 5 mg PO BID [facility] On Hold: 07/29/25 10:24 Last Admin: 07/29/25 09:43 Dose: Not Given Documented By: KIT Non-Admin Reason: difficulty swallowing Calcium Carbonate (Calcium Carbonate 750 Mg Tab.Chew) 750 mg PO Q4H PRN PRN Reason: Heartburn Dextrose (Dextrose 50 % 25 Gm/50 Ml Syringe) 25 gm IVPUSH Q15M PRN; Protocol PRN Reason: per Hypoglycemia Standing Ord. Last Admin: 07/25/25 16:16 Dose: 25 gm Documented By: MADONNA Diazepam (Diazepam 10 Mg/2 Ml Cartridge) 2.5 mg IVPUSH Q6H PRN PRN Reason: anxiety, RLS Last Admin: 07/31/25 00:07 Dose: 2.5 mg Documented By: BEAU Diltiazem HCl (Diltiazem Hcl Cd 120 Mg Cap.Er.Deg) 120 mg PO DAILY [facility]; Protocol Last Admin: 07/31/25 09:14 Dose: Not Given Documented By: ANGELINA Non-Admin Reason: unable to give pills per speech Dronedarone (Dronedarone Hcl 400 Mg Tablet) 400 mg PO BID [facility] Last Admin: 07/31/25 09:14 Dose: Not Given Documented By: ANGELINA Non-Admin Reason: unable to give pills per speech. Enoxaparin Sodium (Enoxaparin Sodium 120 Mg/0.8 Ml Syringe) 120 mg 1.5 mg/kg (120 mg) SUBCUT Q24H [facility] Last Admin: 07/30/25 11:51 Dose: 120 mg Documented By: KIT Fentanyl (Fentanyl 50 Mcg Patch.Td72) 50 mcg TRANSDERMA Q72H [facility] Last Admin: 07/30/25 14:08 Dose: Not Given Documented By: KIT Non-Admin Reason: Patient Refused Glucose (Glucose Gel 15 Gm Gel..Gram.) 15 gm PO Q15M PRN; Protocol PRN Reason: per Hypoglycemia Standing Ord. Hydromorphone HCl (Hydromorphone Hcl 2 Mg/Ml Vial) 4 mg IVPUSH Q2H PRN; Protocol PRN Reason: Pain, Severe (Pain Scale 7-10) Last Admin: 07/31/25 11:24 Dose: 4 mg Documented By: ANGELINA Hydromorphone HCl (Hydromorphone Hcl 1 Mg/Ml Syringe) 1 mg IVPUSH Q2H PRN; Protocol PRN Reason: Pain, Mild (Pain Scale 1-3) Hydromorphone HCl (Hydromorphone Hcl 2 Mg/Ml Vial) 2 mg IVPUSH Q2H PRN; Protocol PRN Reason: Pain, Moderate(Pain Scale 4-6) Last Admin: 07/31/25 09:06 Dose: 2 mg Documented By: ANGELINA Nutrition (Parenteral) (Parenteral Nutrition) 1,800 mls @ 75 mls/hr IV .Q24H [facility]; Protocol Stop: 07/31/25 20:59 Last Admin: 07/30/25 20:12 Dose: 75 mls/hr Documented By: BEAU Insulin Human Lispro (Insulin Lispro 100 Unit/Ml 3 Ml Vial) 0 unit SUBCUT QIDACHS [facility]; Protocol Last Admin: 07/31/25 09:08 Dose: 4 unit Documented By: ANGELINA Lactulose (Lactulose 20 Gm/30 Ml Solution) 30 gm PO DAILY PRN PRN Reason: Constipation Lidocaine (Lidocaine 4 % Patch Adh..Patch) 1 patch TRANSDERMA DAILY [facility]; Protocol Last Admin: 07/31/25 10:37 Dose: Not Given Documented By: ANGELINA Non-Admin Reason: Patient Refused Magnesium Hydroxide (Milk Of Magnesia 30 Ml Oral.Susp) 30 ml PO DAILY PRN PRN Reason: Constipation Melatonin (Melatonin 3 Mg Tablet) 6 mg PO BEDTIME PRN PRN Reason: Insomnia Pharmacy Consult (Consult Rx Parenteral Nutrition Ordering) 1 each MISCELLANE DAILY PRN PRN Reason: Consult order Sodium Chloride (0.9 % Sodium Chloride Flush 3 Ml Syringe) 3 ml IVFLUSH [facility] Last Admin: 07/31/25 08:01 Dose: Not Given Documented By: ANGELINA Non-Admin Reason: PICC line Sodium Chloride (0.9 % Sodium Chloride Flush 10 Ml Syringe) 10 ml IVFLUSH QSAKFT [facility] Last Admin: 07/31/25 08:02 Dose: 10 ml Documented By: ANGELINA Sucralfate (Sucralfate Oral Suspension 1 Gm/10 Ml Oral.Susp) 1 gm PO QIDACHS [facility] Last Admin: 07/31/25 10:37 Dose: Not Given Documented By: ANGELINA Non-Omari Reason: Patient Refused Labs 07/30/25 05:07 07/31/25 10:19 Labs: Laboratory Results - last 24 hr 07/30/25 07/30/25 07/30/25 11:31 16:00 20:35 Hold Purple Top Anion Gap Estim Creat Clear Calc Estimated GFR POC Glucose 193 H 228 H 209 H Random Glucose Calcium Phosphorus Magnesium 07/31/25 07/31/25 07/31/25 07:19 10:19 11:22 Hold Purple Top SEE NOTE Anion Gap 12 Estim Creat Clear Calc 141.6 Estimated GFR > 60 POC Glucose 232 H 213 H Random Glucose 231 H Calcium 9.3 Phosphorus 3.2 Magnesium 2.3 Assessment and Plan (1) Adenocarcinoma of esophagus: Status: Acute Plan d7, 59yo M with metastatic esophageal adenoCA admitted due to dysphagia dysphagia due to poorly differentiated adenocarcinoma of the esophagus - PICC placed, on TPN - on IV hydromorphone - [employer]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 Quality Stroke Does the patient have a stroke diagnosis?: No VTE Prior VTE?: No VTE Risk Level:: Medical - moderate - high VTE Device Contraindication: Treatment Not Indicated VTE Drug Contraindication: N/A - Med Ordered
[2025-07-31 15:59] LABS: Glucose, Whole Blood 242 mg/dL (60-115)
[2025-07-31] MEDS: Sucralfate Oral Suspension 1 GM/10 ML ORAL.SUSP PO (20:45)
[2025-07-31] MEDS: Parenteral Nutrition 1,800 ML 75 ML IV (20:49)
[2025-07-31 21:01] LABS: Glucose, Whole Blood 294 mg/dL (60-115)
[2025-08-01] VITALS (13 sets, daily range): BP systolic 126–167; BP diastolic 69–87; PULSE 75–90; RESP 16–20; TEMP 36–37; O2SAT 94–96
[2025-08-01] MEDS: diazePAM 10 MG/2 ML CARTRIDGE 2.5 MG IVPUSH ×2 (00:30→10:58)
[2025-08-01 07:17] LABS: Glucose, Whole Blood 264 mg/dL (60-115)
[2025-08-01] MEDS: Sucralfate Oral Suspension 1 GM/10 ML ORAL.SUSP PO ×3 (07:29→16:53)
[2025-08-01] MEDS: Milk of Magnesia 30 ML ORAL.SUSP PO (07:39)
[2025-08-01 09:46] LABS: Hematocrit 40.0 % (42.0-52.0); Hemoglobin 12.6 g/dl (14.0-18.0); Mean Corpuscular HGB Conc 31.5 g/dl (31.0-36.0); Mean Corpuscular Hemoglobin 27.6 pg (27.0-33.0); Mean Corpuscular Volume 87.7 fL (80.0-98.0); NRBC Abs Auto 0.000 X10*3/uL (0.0-0.012); NRBC Pct Auto 0.0 /100WBC (0.0-0.2); Platelet Count 219 X10*3/uL (160-400); Red Blood Count 4.56 X10*6/uL (4.60-5.80); White Blood Count 11.8 X10*3/uL (4.8-10.8)
[2025-08-01 10:03] LABS: Alanine Aminotransferase 9 U/L (0-40); Albumin Level 3.9 g/dL (3.5-5.0); Alkaline Phosphatase 76 U/L (39-117); Anion Gap 12 (12-20); Aspartate Amino Transferase 18 U/L (5-37); Blood Urea Nitrogen 20 mg/dL (9-16); Calcium 9.3 mg/dL (8.4-10.2); Carbon Dioxide 26 mmol/L (22-29); Chloride 108 mmol/L (96-108); Creatinine Clr Calc Pharmacy 144.3; Estimated Glomerular Filt Rate > 60; Magnesium 2.4 mg/dL (1.6-2.6); Potassium 4.1 mmol/L (3.3-5.1); Sodium 142 mmol/L (135-145); Total Protein 7.0 g/dL (6.5-8.0)
[2025-08-01 11:16] LABS: Glucose, Whole Blood 294 mg/dL (60-115)
--- NOTE | 2025-08-01 12:53 | P.PNIM_ITS ---
Subjective Subjective Date of Service: 08/01/25 Interval History: willing to try fentanyl patch now c/o upper body pain used 31 mg IV hydromorphone in last 24h tolerated a small amount of Ensure Review of Systems Review of Systems: Yes all other systems are reviewed and are negative Physical Exam 2 Vital Signs: Vital Signs: Last Vital Signs Temp 96.8 F 08/01/25 07:33 Pulse 87 08/01/25 07:33 Resp 16 08/01/25 12:15 BP 126/78 08/01/25 07:33 Pulse Ox 94 08/01/25 07:33 O2 Del Method Room Air 08/01/25 07:33 BMI result Body Mass Index 25.9 Gen: ill-appearing HEENT: sclera anicteric, moist mucus membranes Neck: supple Lungs: clear to auscultation bilaterally Heart: regular rate and rhythm, no murmurs Abd: soft, non-tender, non-distended Ext: no edema, RUE PICC Skin: warm/well-perfused Neuro: alert and oriented x3, no focal findings Psych: appropriate affect Objective Data Active Medications Albuterol Sulfate (Albuterol Sulfate 90 Mcg 8 Gm Inhaler) 2 puff INHALE Q4H PRN PRN Reason: for wheezing Apixaban (Apixaban 5 Mg Tablet) 5 mg PO BID [facility]ERRE On Hold: 07/29/25 10:24 Last Admin: 07/29/25 09:43 Dose: Not Given Documented By: KIT Non-Admin Reason: difficulty swallowing Calcium Carbonate (Calcium Carbonate 750 Mg Tab.Chew) 750 mg PO Q4H PRN PRN Reason: Heartburn Dextrose (Dextrose 50 % 25 Gm/50 Ml Syringe) 25 gm IVPUSH Q15M PRN; Protocol PRN Reason: per Hypoglycemia Standing Ord. Last Admin: 07/25/25 16:16 Dose: 25 gm Documented By: MADONNA Diazepam (Diazepam 10 Mg/2 Ml Cartridge) 2.5 mg IVPUSH Q6H PRN PRN Reason: anxiety, RLS Last Admin: 08/01/25 10:58 Dose: 2.5 mg Documented By: ANGELINA Diltiazem HCl (Diltiazem Hcl Cd 120 Mg Cap.Er.Deg) 120 mg PO DAILY [facility]ERRE; Protocol Last Admin: 08/01/25 10:16 Dose: Not Given Documented By: ANGELINA Non-Admin Reason: unable to give pills per speech Comments: provider Zee aware. Dronedarone (Dronedarone Hcl 400 Mg Tablet) 400 mg PO BID [facility] Last Admin: 08/01/25 10:16 Dose: Not Given Documented By: ANGELINA Non-Admin Reason: unable to give pills per speech Comments: provider Zee aware. Enoxaparin Sodium (Enoxaparin Sodium 120 Mg/0.8 Ml Syringe) 120 mg 1.5 mg/kg (120 mg) SUBCUT Q24H [facility] Last Admin: 08/01/25 12:00 Dose: 120 mg Documented By: ANGELINA Fentanyl (Fentanyl 100 Mcg Patch.Td72) 100 mcg TRANSDERMA Q72H [facility] Glucose (Glucose Gel 15 Gm Gel..Gram.) 15 gm PO Q15M PRN; Protocol PRN Reason: per Hypoglycemia Standing Ord. Hydromorphone HCl (Hydromorphone Hcl 2 Mg/Ml Vial) 4 mg IVPUSH Q2H PRN; Protocol PRN Reason: Pain, Severe (Pain Scale 7-10) Last Admin: 08/01/25 12:15 Dose: 4 mg Documented By: ANGELINA Hydromorphone HCl (Hydromorphone Hcl 1 Mg/Ml Syringe) 1 mg IVPUSH Q2H PRN; Protocol PRN Reason: Pain, Mild (Pain Scale 1-3) Last Admin: 07/31/25 13:44 Dose: 1 mg Documented By: ANGELINA Hydromorphone HCl (Hydromorphone Hcl 2 Mg/Ml Vial) 2 mg IVPUSH Q2H PRN; Protocol PRN Reason: Pain, Moderate(Pain Scale 4-6) Last Admin: 08/01/25 07:29 Dose: 2 mg Documented By: ANGELINA Nutrition (Parenteral) (Parenteral Nutrition) 1,800 mls @ 75 mls/hr IV .Q24H [facility]; Protocol Stop: 08/01/25 20:59 Last Admin: 07/31/25 20:49 Dose: 75 mls/hr Documented By: KATHLEEN Nutrition (Parenteral) (Parenteral Nutrition) 1,800 mls @ 75 mls/hr IV .Q24H [facility]; Protocol Stop: 08/02/25 20:59 Insulin Human Lispro (Insulin Lispro 100 Unit/Ml 3 Ml Vial) 0 unit SUBCUT QIDACHS [facility]; Protocol Last Admin: 08/01/25 11:54 Dose: 6 unit Documented By: ANGELINA Lactulose (Lactulose 20 Gm/30 Ml Solution) 30 gm PO DAILY PRN PRN Reason: Constipation Lidocaine (Lidocaine 4 % Patch Adh..Patch) 1 patch TRANSDERMA DAILY [facility]; Protocol Last Admin: 08/01/25 10:17 Dose: Not Given Documented By: ANGELINA Non-Admin Reason: Patient Refused Magnesium Hydroxide (Milk Of Magnesia 30 Ml Oral.Susp) 30 ml PO DAILY PRN PRN Reason: Constipation Last Admin: 08/01/25 07:39 Dose: 30 ml Documented By: ANGELINA Melatonin (Melatonin 3 Mg Tablet) 6 mg PO BEDTIME PRN PRN Reason: Insomnia Pharmacy Consult (Consult Rx Parenteral Nutrition Ordering) 1 each MISCELLANE DAILY PRN PRN Reason: Consult order Sodium Chloride (0.9 % Sodium Chloride Flush 10 Ml Syringe) 10 ml IVFLUSH [facility] Last Admin: 08/01/25 07:37 Dose: Not Given Documented By: ANGELINA Non-Admin Reason: Unable to Scan Barcode Sucralfate (Sucralfate Oral Suspension 1 Gm/10 Ml [facility].Susp) [facility] Last Admin: 08/01/25 11:59 Dose: 1 gm Documented By: ANGELINA Labs 08/01/25 09:29 08/01/25 09:29 Labs: Laboratory Results - last 24 hr 07/31/25 07/31/25 08/01/25 15:55 20:40 05:45 MCV TNP MCH TNP MCHC TNP RDW TNP Plt Count TNP MPV TNP Absolute Nucleated RBC TNP Nucleated RBC % (auto) TNP Anion Gap Estim Creat Clear Calc Estimated GFR POC Glucose 242 H 294 H Random Glucose Calcium Phosphorus Magnesium Total Bilirubin Direct Bilirubin AST ALT Alkaline Phosphatase Total Protein Albumin 08/01/25 08/01/25 08/01/25 07:14 09:29 11:12 MCV 87.7 MCH 27.6 MCHC 31.5 RDW 15.4 Plt Count 219 MPV 11.0 Absolute Nucleated RBC 0.000 Nucleated RBC % (auto) 0.0 Anion Gap 12 Estim Creat Clear Calc 144.3 Estimated GFR > 60 POC Glucose 264 H 294 H Random Glucose 279 H Calcium 9.3 Phosphorus 3.7 Magnesium 2.4 Total Bilirubin 0.4 Direct Bilirubin 0.2 AST 18 ALT 9 Alkaline Phosphatase 76 Total Protein 7.0 Albumin 3.9 Assessment and Plan (1) Adenocarcinoma of esophagus: Status: Acute Plan d8, 59yo M with metastatic esophageal adenoCA admitted due to dysphagia dysphagia due to poorly differentiated adenocarcinoma of the esophagus - PICC placed, on TPN - on IV hydromorphone; will start fentanyl patch 100 mcg/h with plan to eventually transition to fentanyl patch + MSIR liquid for breakthrough pain - GENERATION TECHNOLOGIST consultation: NDD1 solids, thin liquids but for comfort only - does not want hospice as he does want to be DNR/DNI - continue sucralfate pAF - enoxaparin; cannot take diltiazem + dronaderone, pills not recommended by GENERATION TECHNOLOGIST DM2 - correction-dose lispro COPD not acute - prn albuterol VTE ppx: enoxaparin dispo: SNF In my clinical judgment, the patient requires continued inpatient hospitalization for the following reasons: PO intolerance, TPN dependent, IV pain control Total time managing care of this patient today: 35 minutes. Quality Stroke Does the patient have a stroke diagnosis?: No VTE Prior VTE?: No VTE Risk Level:: Medical - moderate - high VTE Device Contraindication: Treatment Not Indicated VTE Drug Contraindication: N/A - Med Ordered
[2025-08-01 13:31] LABS: Glucose, Whole Blood 228 mg/dL (60-115)
[2025-08-01] MEDS: fentaNYL 100 MCG PATCH.TD72 TRANSDERMA (13:54)
--- NOTE | 2025-08-01 14:01 | PC.NURSE ---
Patient visiting with sister, sister came out and spoke to STENCIL INSPECTOR reporting that patient said I can't see , STENCIL INSPECTOR came and told this RN. RN went into room to assess patient, patient reported I don't know I just saw black , stating it was only for a couple seconds, patient said symptoms resolved. Vital signs stable, blood sugar checked. Provider Zee notified and came to bedside to assess patient, patient denied visual impairment but mentions seeing things that aren't there, commented that earlier patient was reporting seeing bugs on the bed. Provider aware, Fentanyl patch placed with plan to be able to reduce IV Dilaudid. Patient joking around in room with family and some sentences don't make sense. Bed alarm on, virtual monitor in place.
[2025-08-01 16:24] LABS: Glucose, Whole Blood 235 mg/dL (60-115)
[2025-08-01 20:02] LABS: Glucose, Whole Blood 213 mg/dL (60-115)
[2025-08-01] MEDS: 0.9 % Sodium Chloride Flush 10 ML SYRINGE IVFLUSH (20:09)
[2025-08-01] MEDS: Parenteral Nutrition 1,800 ML 75 ML IV (20:27)
[2025-08-02] VITALS (9 sets, daily range): BP systolic 112–136; BP diastolic 72–83; PULSE 79–90; RESP 12–20; TEMP 36.2–36.7; O2SAT 95–96
[2025-08-02 07:25] LABS: Glucose, Whole Blood 285 mg/dL (60-115)
[2025-08-02] MEDS: Sucralfate Oral Suspension 1 GM/10 ML ORAL.SUSP PO ×3 (08:21→21:34)
[2025-08-02] MEDS: 0.9 % Sodium Chloride Flush 10 ML SYRINGE IVFLUSH ×3 (08:22→19:27)
[2025-08-02 08:43] LABS: Anion Gap 13 (12-20); Blood Urea Nitrogen 19 mg/dL (9-16); Calcium 9.2 mg/dL (8.4-10.2); Carbon Dioxide 24 mmol/L (22-29); Chloride 107 mmol/L (96-108); Creatinine Clr Calc Pharmacy 156.3; Estimated Glomerular Filt Rate > 60; Magnesium 2.2 mg/dL (1.6-2.6); Potassium 4.0 mmol/L (3.3-5.1); Sodium 140 mmol/L (135-145)
--- NOTE | 2025-08-02 09:40 | MHC.CLN ---
F/U CONTINUES TPN. DIET RX: PUREE WITH ENSURE TID (1050 KCALS, 60 G PROTEIN). ESOPHAGEAL CANCER WITH WIDELY METASTATIC DISEASE. UNABLE TO TAKE ADEQUATE NUTRITION PO. REVIEWED LABS. COMMUNICATED WITH PHARMACY. RECOMMEND CONTINUE TPN AT MAX GOAL RATE 75ML/HR WITH 82G LIPIDS. PROVIDES 2098 TOTAL KCALS (27KCALS/KG ABW), 270G DEXTROSE, 90G PROTEIN (1.2G/KG) REPLETE LYTES NEEDED. CHECK TRIGLYCERIDES. FOLLOW FOR TPN TOLERANCE AND PLAN OF CARE.
--- NOTE | 2025-08-02 10:44 | MHC.SLORD ---
Speech Language Pathology Order Status: Pt c/o significant pain this morning, MD and RN aware. Pt partner at bedside, both verbalize understanding of current diet recc. Pt has declined hospice, continuing with TPN during inpatient stay. CRIMINAL JUSTICE PROGRAM DIRECTOR continues to follow as indicated, no changes to PO diet (NDD1 with thins).
[2025-08-02 11:13] LABS: Triglycerides 254 mg/dL (<150)
[2025-08-02 11:26] LABS: Glucose, Whole Blood 333 mg/dL (60-115)
--- NOTE | 2025-08-02 14:32 | HO.PM.IMPN ---
Subjective Subjective Date of Service: 08/02/25 Interval History: still c/o upper body pain and does not want to be DNR/DNI and thus does not want hospice Review of Systems Review of Systems: Yes all other systems are reviewed and are negative Physical Exam Vital Signs: Vital Signs: Last Vital Signs Temp 97.2 F 08/02/25 07:47 Pulse 79 08/02/25 07:47 Resp 18 08/02/25 07:47 BP 128/79 08/02/25 07:47 Pulse Ox 96 08/02/25 07:47 O2 Del Method Room Air 08/02/25 07:47 BMI result Body Mass Index 25.9 Gen: ill-appearing HEENT: sclera anicteric, moist mucus membranes Neck: supple Lungs: clear to auscultation bilaterally Heart: regular rate and rhythm, no murmurs Abd: soft, non-tender, non-distended Ext: no edema, RUE PICC Skin: warm/well-perfused Neuro: alert and oriented x3, no focal findings Psych: appropriate affect Objective Data Active Medications Albuterol Sulfate (Albuterol Sulfate 90 Mcg 8 Gm Inhaler) 2 puff INHALE Q4H PRN PRN Reason: for wheezing Apixaban (Apixaban 5 Mg Tablet) 5 mg PO BID [facility] On Hold: 07/29/25 10:24 Last Admin: 07/29/25 09:43 Dose: Not Given Documented By: KTI Non-Admin Reason: difficulty swallowing Calcium Carbonate (Calcium Carbonate 750 Mg Tab.Chew) 750 mg PO Q4H PRN PRN Reason: Heartburn Dextrose (Dextrose 50 % 25 Gm/50 Ml Syringe) 25 gm IVPUSH Q15M PRN; Protocol PRN Reason: per Hypoglycemia Standing Ord. Last Admin: 07/25/25 16:16 Dose: 25 gm Documented By: MADONNA Diazepam (Diazepam 10 Mg/2 Ml Cartridge) 2.5 mg IVPUSH Q6H PRN PRN Reason: anxiety, RLS Last Admin: 08/01/25 10:58 Dose: 2.5 mg Documented By: BURMelina Diltiazem HCl (Diltiazem Hcl Cd 120 Mg Cap.Er.Deg) 120 mg PO DAILY [facility]; Protocol On Hold: 08/02/25 07:48 Last Admin: 08/01/25 10:16 Dose: Not Given Documented By: ANGELINA Non-Admin Reason: unable to give pills per speech Comments: provider Zee aware. Dronedarone (Dronedarone Hcl 400 Mg Tablet) 400 mg PO BID [facility]ERRE On Hold: 08/02/25 07:48 Last Admin: 08/01/25 20:00 Dose: Not Given Documented By: MAYA Non-Admin Reason: NPO/no pills per DELIVERY DIRECTOR Enoxaparin Sodium (Enoxaparin Sodium 120 Mg/0.8 Ml Syringe) 120 mg 1.5 mg/kg (120 mg) SUBCUT Q24H [facility] Last Admin: 08/02/25 11:44 Dose: 120 mg Documented By: JHONY Fentanyl (Fentanyl 100 Mcg Patch.Td72) 100 mcg TRANSDERMA Q72H [facility] Last Admin: 08/01/25 13:54 Dose: 100 mcg Documented By: ANGELINA Glucose (Glucose Gel 15 Gm Gel..Gram.) 15 gm PO Q15M PRN; Protocol PRN Reason: per Hypoglycemia Standing Ord. Hydromorphone HCl (Hydromorphone Hcl 2 Mg/Ml Vial) 4 mg IVPUSH Q2H PRN; Protocol PRN Reason: Pain, Severe (Pain Scale 7-10) Last Admin: 08/02/25 11:43 Dose: 4 mg Documented By: JHONY Hydromorphone HCl (Hydromorphone Hcl 1 Mg/Ml Syringe) 1 mg IVPUSH Q2H PRN; Protocol PRN Reason: Pain, Mild (Pain Scale 1-3) Last Admin: 07/31/25 13:44 Dose: 1 mg Documented By: ANGELINA Hydromorphone HCl (Hydromorphone Hcl 2 Mg/Ml Vial) 2 mg IVPUSH Q2H PRN; Protocol PRN Reason: Pain, Moderate(Pain Scale 4-6) Last Admin: 08/02/25 02:22 Dose: 2 mg Documented By: MAYA Nutrition (Parenteral) (Parenteral Nutrition) 1,800 mls @ 75 mls/hr IV .Q24H [facility]; Protocol Stop: 08/02/25 20:59 Last Admin: 08/01/25 20:27 Dose: 75 mls/hr Documented By: MAYA Nutrition (Parenteral) (Parenteral Nutrition) 1,800 mls @ 75 mls/hr IV .Q24H [facility]; Protocol Stop: 08/03/25 20:59 Insulin Human Lispro (Insulin Lispro 100 Unit/Ml 3 Ml Vial) 0 unit SUBCUT QIDACHS [facility]; Protocol Last Admin: 08/02/25 11:44 Dose: 10 unit Documented By: JHONY Lactulose (Lactulose 20 Gm/30 Ml Solution) 30 gm PO DAILY PRN PRN Reason: Constipation Lidocaine (Lidocaine 4 % Patch Adh..Patch) 1 patch TRANSDERMA DAILY [facility]; Protocol Last Admin: 08/02/25 08:22 Dose: Not Given Documented By: JHONY Non-Admin Reason: Patient Refused Magnesium Hydroxide (Milk Of Magnesia 30 Ml Oral.Susp) 30 ml PO DAILY PRN PRN Reason: Constipation Last Admin: 08/01/25 07:39 Dose: 30 ml Documented By: ANGELINA Melatonin (Melatonin 3 Mg Tablet) 6 mg PO BEDTIME PRN PRN Reason: Insomnia Pharmacy Consult (Consult Rx Parenteral Nutrition Ordering) 1 each MISCELLANE DAILY PRN PRN Reason: Consult order Sodium Chloride (0.9 % Sodium Chloride Flush 10 Ml Syringe) 10 ml IVFLUSH QSHIFT [facility] Last Admin: 08/02/25 08:22 Dose: 10 ml Documented By: JHONY Sucralfate (Sucralfate Oral Suspension 1 Gm/10 Ml Oral.Susp) 1 gm PO QIDACHS [facility] Last Admin: 08/02/25 11:50 Dose: Not Given Documented By: JHONY Non-Admin Reason: Patient Refused Labs 08/01/25 09:29 08/02/25 07:50 Labs: Laboratory Results - last 24 hr 08/01/25 08/01/25 08/02/25 16:21 19:58 07:09 Hold Purple Top Anion Gap Estim Creat Clear Calc Estimated GFR POC Glucose 235 H 213 H 285 H Random Glucose Calcium Phosphorus Magnesium Triglycerides 08/02/25 08/02/25 08/02/25 07:50 10:46 11:19 Hold Purple Top SEE NOTE Anion Gap 13 Estim Creat Clear Calc 156.3 Estimated GFR > 60 POC Glucose 333 H Random Glucose 287 H Calcium 9.2 Phosphorus 4.1 Magnesium 2.2 Triglycerides 254 H Assessment and Plan (1) Adenocarcinoma of esophagus: Status: Acute Plan d9, 59yo M with metastatic esophageal adenoCA admitted due to dysphagia dysphagia due to poorly differentiated adenocarcinoma of the esophagus - PICC placed, on TPN and dependent on this - DELIVERY DIRECTOR consultation: NDD1 solids, thin liquids but for comfort only - on IV hydromorphone; on 08/01, started fentanyl patch 100 mcg/h with plan to eventually transition to fentanyl patch + MSIR liquid for breakthrough pain. Has used 24mg IV Dilaudid since fentanyl patch started 24h prior; decreased from 31mg IV Dilaudid in prior 24h - does not want hospice as he does want to be DNR/DNI - continue sucralfate DM2 with hyperglycemia - increase correction-dose lispro pAF: enoxaparin; cannot take diltiazem + dronaderone, pills not recommended by DELIVERY DIRECTOR COPD not acute: prn albuterol VTE ppx: enoxaparin dispo: SNF In my clinical judgment, the patient requires continued inpatient hospitalization for the following reasons: PO intolerance, TPN dependent, IV pain control Total time managing care of this patient today: 35 minutes. Quality Stroke Does the patient have a stroke diagnosis?: No VTE Prior VTE?: No VTE Risk Level:: Medical - moderate - high VTE Device Contraindication: Treatment Not Indicated VTE Drug Contraindication: N/A - Med Ordered
--- NOTE | 2025-08-02 15:00 | MHC.CM.PN ---
per rounds pt will be hopsice
--- NOTE | 2025-08-02 15:24 | MHC.CM.PN ---
pt has deceiced against hospice dc plan tbnd
[2025-08-02 16:56] LABS: Glucose, Whole Blood 252 mg/dL (60-115)
--- NOTE | 2025-08-02 17:03 | HO.WOUND ---
Wound Consult: Initial 59yr old?male admitted to [facility] on 07/25/25- See progress notes and H&P for detailed history.? Wound consult placed for Buttock and BLE.? Patient agreeable to assessment and photo documentation.? Sacrum 08/02/25 Etiology: Redness ?? Wound Bed: intact red blanchable tissue Drainage / Odor: None Edges: ? attached [place] wound: ? intact No Induration, Fluctuance or Warmth noted Pain: denies pain to sacrum Goals of Treatment: ? Off load pressure and Q2hr turns - foam to aid in protection and off loading pressure Bilateral Lower Legs right hand and elbows noted for dry stable scabs - patient reports from scratching or his cats. no topical interventions needed at this time may leave JANE. Should wounds start to drain may cover with dry dressing. Recommendations: 1. Turn and Reposition every 2 hours and as needed for patient comfort.? Use pillows or wedges to support off loading positions. 2. Off Load all bony prominences with use of pillows and heel boots if needed.? Apply Preventative foams where needed. ? 3. Monitor for incontinence and moisture control, use barrier creams when needed for prevention and treatment. 4. Provide adequate and supplemental nutrition.? 5.Continue low air loss mattress. 6. When applicable maintain blood glucose levels per Providers order. Sacrum? - Off Load Pressure with Q2 hr turns and use of pillows - Routine cleansing.? Apply skin prep allow to dry.? Cover with foam dressing to aid in off loading and protection from friction. Change every 3 days and PRN. Re-consult wound care Nurse for wound deterioration or wound changes.
[2025-08-02 20:08] LABS: Glucose, Whole Blood 249 mg/dL (60-115)
[2025-08-02] MEDS: Parenteral Nutrition 1,800 ML 75 ML IV (21:28)
[2025-08-03 02:57] VITALS: BP 130/75; PULSE 77; RESP 18; TEMP 36.3; O2SAT 96
[2025-08-03 07:15] VITALS: BP 143/85; PULSE 80; RESP 16; TEMP 36.2; O2SAT 95
[2025-08-03 07:18] LABS: Albumin Level 4.1 g/dL (3.5-5.0); Anion Gap 15 (12-20); Blood Urea Nitrogen 19 mg/dL (9-16); Calcium 9.6 mg/dL (8.4-10.2); Carbon Dioxide 25 mmol/L (22-29); Chloride 104 mmol/L (96-108); Creatinine Clr Calc Pharmacy 141.6; Estimated Glomerular Filt Rate > 60; Magnesium 2.2 mg/dL (1.6-2.6); Potassium 4.3 mmol/L (3.3-5.1); Sodium 140 mmol/L (135-145)
[2025-08-03 07:40] LABS: Glucose, Whole Blood 308 mg/dL (60-115)
[2025-08-03] MEDS: 0.9 % Sodium Chloride Flush 10 ML SYRINGE IVFLUSH ×3 (07:57→21:36)
[2025-08-03] MEDS: Sucralfate Oral Suspension 1 GM/10 ML ORAL.SUSP PO ×4 (07:57→21:39)
--- NOTE | 2025-08-03 09:37 | P.PNIM_ITS ---
Subjective Subjective Date of Service: 08/03/25 Interval History: still c/o upper body pain and does not want to be DNR/DNI and thus does not want hospice Review of Systems Review of Systems: Yes all other systems are reviewed and are negative Physical Exam 2 Vital Signs: Vital Signs: Last Vital Signs Temp 97.1 F 08/03/25 07:15 Pulse 80 08/03/25 07:15 Resp 16 08/03/25 07:15 BP 143/85 H 08/03/25 07:15 Pulse Ox 95 08/03/25 07:15 O2 Del Method Room Air 08/03/25 07:15 BMI result Body Mass Index 25.9 Objective Data Active Medications Albuterol Sulfate (Albuterol Sulfate 90 Mcg 8 Gm Inhaler) 2 puff INHALE Q4H PRN PRN Reason: for wheezing Apixaban (Apixaban 5 Mg Tablet) 5 mg PO BID JEAN-PIERRE On Hold: 07/29/25 10:24 Last Admin: 07/29/25 09:43 Dose: Not Given Documented By: KIT Non-Admin Reason: difficulty swallowing Calcium Carbonate (Calcium Carbonate 750 Mg Tab.Chew) 750 mg PO Q4H PRN PRN Reason: Heartburn Dextrose (Dextrose 50 % 25 Gm/50 Ml Syringe) 25 gm IVPUSH Q15M PRN; Protocol PRN Reason: per Hypoglycemia Standing Ord. Last Admin: 07/25/25 16:16 Dose: 25 gm Documented By: MADONNA Diazepam (Diazepam 10 Mg/2 Ml Cartridge) 2.5 mg IVPUSH Q6H PRN PRN Reason: anxiety, RLS Last Admin: 08/01/25 10:58 Dose: 2.5 mg Documented By: ANGELINA Diltiazem HCl (Diltiazem Hcl Cd 120 Mg Cap.Er.Deg) 120 mg PO DAILY [facility]; Protocol On Hold: 08/02/25 07:48 Last Admin: 08/01/25 10:16 Dose: Not Given Documented By: ANGELINA Non-Admin Reason: unable to give pills per speech Comments: provider Zee aware. Dronedarone (Dronedarone Hcl 400 Mg Tablet) 400 mg PO BID JEAN-PIERRE On Hold: 08/02/25 07:48 Last Admin: 08/01/25 20:00 Dose: Not Given Documented By: MAYA Non-Admin Reason: NPO/no pills per INCIDENT ANALYST Enoxaparin Sodium (Enoxaparin Sodium 120 Mg/0.8 Ml Syringe) 120 mg 1.5 mg/kg (120 mg) SUBCUT Q24H [facility] Last Admin: 08/02/25 11:44 Dose: 120 mg Documented By: JHONY Fentanyl (Fentanyl 100 Mcg Patch.Td72) 100 mcg TRANSDERMA Q72H [facility]ERRE Last Admin: 08/01/25 13:54 Dose: 100 mcg Documented By: ANGELINA Glucose (Glucose Gel 15 Gm Gel..Gram.) 15 gm PO Q15M PRN; Protocol PRN Reason: per Hypoglycemia Standing Ord. Hydromorphone HCl (Hydromorphone Hcl 2 Mg/Ml Vial) 4 mg IVPUSH Q2H PRN; Protocol PRN Reason: Pain, Severe (Pain Scale 7-10) Last Admin: 08/03/25 07:56 Dose: 4 mg Documented By: JHONY Hydromorphone HCl (Hydromorphone Hcl 1 Mg/Ml Syringe) 1 mg IVPUSH Q2H PRN; Protocol PRN Reason: Pain, Mild (Pain Scale 1-3) Last Admin: 07/31/25 13:44 Dose: 1 mg Documented By: ANGELINA Hydromorphone HCl (Hydromorphone Hcl 2 Mg/Ml Vial) 2 mg IVPUSH Q2H PRN; Protocol PRN Reason: Pain, Moderate(Pain Scale 4-6) Last Admin: 08/02/25 02:22 Dose: 2 mg Documented By: MAYA Nutrition (Parenteral) (Parenteral Nutrition) 1,800 mls @ 75 mls/hr IV .Q24H [facility]; Protocol Stop: 08/03/25 20:59 Last Admin: 08/02/25 21:28 Dose: 75 mls/hr Documented By: SRIKANTH Insulin Human Lispro (Insulin Lispro 100 Unit/Ml 3 Ml Vial) 0 unit SUBCUT QIDACHS [facility]; Protocol Last Admin: 08/03/25 07:55 Dose: 14 unit Documented By: JHONY Lactulose (Lactulose 20 Gm/30 Ml Solution) 30 gm PO DAILY PRN PRN Reason: Constipation Lidocaine (Lidocaine 4 % Patch Adh..Patch) 1 patch TRANSDERMA DAILY [facility]; Protocol Last Admin: 08/03/25 08:02 Dose: Not Given Documented By: JHONY Non-Admin Reason: Patient Refused Magnesium Hydroxide (Milk Of Magnesia 30 Ml Oral.Susp) 30 ml PO DAILY PRN PRN Reason: Constipation Last Admin: 08/01/25 07:39 Dose: 30 ml Documented By: ANGELINA Melatonin (Melatonin 3 Mg Tablet) 6 mg PO BEDTIME PRN PRN Reason: Insomnia Pharmacy Consult (Consult Rx Parenteral Nutrition Ordering) 1 each MISCELLANE DAILY PRN PRN Reason: Consult order Sodium Chloride (0.9 % Sodium Chloride Flush 10 Ml Syringe) 10 ml IVFLUSH QSHIFT [facility] Last Admin: 08/03/25 07:57 Dose: 10 ml Documented By: JHONY Sucralfate (Sucralfate Oral Suspension 1 Gm/10 Ml Oral.Susp) 1 gm PO QIDACHS COUNT [facility]CLUD[facility] Last Admin: 08/03/25 07:57 Dose: 1 gm Documented By: JHONY Labs 08/01/25 09:29 08/03/25 06:18 Labs: Laboratory Results - last 24 hr 08/02/25 08/02/25 08/02/25 10:46 11:19 16:53 Anion Gap Estim Creat Clear Calc Estimated GFR POC Glucose 333 H 252 H Random Glucose Calcium Phosphorus Magnesium Albumin Triglycerides 254 H 08/02/25 08/03/25 08/03/25 19:58 06:18 07:35 Anion Gap 15 Estim Creat Clear Calc 141.6 Estimated GFR > 60 POC Glucose 249 H 308 H Random Glucose 281 H Calcium 9.6 Phosphorus 3.8 Magnesium 2.2 Albumin 4.1 Triglycerides Assessment and Plan (1) Adenocarcinoma of esophagus: Status: Acute Plan 59yo M with metastatic esophageal adenoCA admitted due to dysphagia dysphagia due to poorly differentiated adenocarcinoma of the esophagus - PICC placed, on TPN and dependent on this - INCIDENT ANALYST consultation: NDD1 solids, thin liquids but for comfort only - on IV hydromorphone; on 08/01, started fentanyl patch 100 mcg/h with plan to eventually transition to fentanyl patch + MSIR liquid for breakthrough pain. Relying less on IV dilaudid with Fentanyl on - does not want hospice as he does want to be DNR/DNI - continue sucralfate DM2 with hyperglycemia - increase correction-dose lispro pAF: enoxaparin; cannot take diltiazem + dronaderone, pills not recommended by INCIDENT ANALYST COPD not acute: prn albuterol VTE ppx: enoxaparin dispo: SNF In my clinical judgment, the patient requires continued inpatient hospitalization for the following reasons: PO intolerance, TPN dependent, IV pain control Total time managing care of this patient today: 35 minutes. Quality Stroke Does the patient have a stroke diagnosis?: No VTE Prior VTE?: No VTE Risk Level:: Medical - moderate - high VTE Device Contraindication: Treatment Not Indicated VTE Drug Contraindication: N/A - Med Ordered
--- NOTE | 2025-08-03 10:58 | MHC.CLN ---
F/U PO INTAKE 0% DIET RX: PUREE WITH ENSURE TID (1050 KCALS, 60 G PROTEIN) CONTINUES WITH INABILITY TO TAKE ADEQUATE NUTRITION TO MEET NEEDS REVIEWED LABS COMMUNICATED WITH PHARMACY CONTINUE TPN AT MAX GOAL RATE 75ML/HR WITH 82G LIPIDS PROVIDES 2098 TOTAL KCALS (27KCALS/KG ABW), 270G DEXTROSE, 90G PROTEIN (1.2G/KG) REPLETE LYTES NEEDED
[2025-08-03 12:11] LABS: Glucose, Whole Blood 260 mg/dL (60-115)
[2025-08-03 15:23] VITALS: BP 149/85; PULSE 100; RESP 20; TEMP 36.1; O2SAT 97
[2025-08-03 15:57] LABS: Glucose, Whole Blood 295 mg/dL (60-115)
--- NOTE | 2025-08-03 17:02 | MHC.SLORD ---
Speech Language Pathology Order Status: CORPORATE PILOT unable to see patient this date. Per RN, patient with poor PO intake and reporting that he cannot eat. Patient only taking ensure's here and there. Current diet NDD1, Thin liquids secondary nutrition and comfort. Patient with main nutrition of TPN via PICC. Recommend continuing. CORPORATE PILOT to continue to follow.
[2025-08-03 20:00] VITALS: BP 131/85; PULSE 95; RESP 18; TEMP 36.8; O2SAT 97
[2025-08-03 20:29] LABS: Glucose, Whole Blood 298 mg/dL (60-115)
[2025-08-03] MEDS: Parenteral Nutrition 1,800 ML 75 ML IV (21:38)
[2025-08-04 03:11] VITALS: BP 132/77; PULSE 84; RESP 18; TEMP 36.3; O2SAT 94
[2025-08-04 06:32] LABS: Albumin Level 3.7 g/dL (3.5-5.0); Anion Gap 14 (12-20); Blood Urea Nitrogen 19 mg/dL (9-16); Calcium 9.3 mg/dL (8.4-10.2); Carbon Dioxide 25 mmol/L (22-29); Chloride 104 mmol/L (96-108); Creatinine Clr Calc Pharmacy 134.0; Estimated Glomerular Filt Rate > 60; Magnesium 2.1 mg/dL (1.6-2.6); Potassium 4.3 mmol/L (3.3-5.1); Sodium 139 mmol/L (135-145)
[2025-08-04 08:00] VITALS: BP 163/84; PULSE 79; RESP 16; TEMP 36.2; O2SAT 96
[2025-08-04 08:11] LABS: Glucose, Whole Blood 295 mg/dL (60-115)
[2025-08-04] MEDS: Sucralfate Oral Suspension 1 GM/10 ML ORAL.SUSP PO ×4 (08:28→21:04)
[2025-08-04] MEDS: Lidocaine 4 % Patch ADH..PATCH 1 PATCH TRANSDERMA (08:32)
[2025-08-04] MEDS: 0.9 % Sodium Chloride Flush 10 ML SYRINGE IVFLUSH (08:51)
--- NOTE | 2025-08-04 09:01 | HO.PM.IMPN ---
Subjective Subjective Date of Service: 08/04/25 Interval History: still c/o upper body pain and does not want to be DNR/DNI and thus does not want hospice Review of Systems Review of Systems: Yes all other systems are reviewed and are negative Physical Exam Vital Signs: Vital Signs: Last Vital Signs Temp 97.1 F 08/04/25 08:00 Pulse 79 08/04/25 08:00 Resp 16 08/04/25 08:00 BP 163/84 H 08/04/25 08:00 Pulse Ox 96 08/04/25 08:00 O2 Del Method Room Air 08/04/25 08:00 BMI result Body Mass Index 25.9 Objective Data Active Medications Albuterol Sulfate (Albuterol Sulfate 90 Mcg 8 Gm Inhaler) 2 puff INHALE Q4H PRN PRN Reason: for wheezing Apixaban (Apixaban 5 Mg Tablet) 5 mg PO BID [facility] On Hold: 07/29/25 10:24 Last Admin: 07/29/25 09:43 Dose: Not Given Documented By: KIT Non-Admin Reason: difficulty swallowing Calcium Carbonate (Calcium Carbonate 750 Mg Tab.Chew) 750 mg PO Q4H PRN PRN Reason: Heartburn Dextrose (Dextrose 50 % 25 Gm/50 Ml Syringe) 25 gm IVPUSH Q15M PRN; Protocol PRN Reason: per Hypoglycemia Standing Ord. Last Admin: 07/25/25 16:16 Dose: 25 gm Documented By: MADONNA Diazepam (Diazepam 10 Mg/2 Ml Cartridge) 2.5 mg IVPUSH Q6H PRN PRN Reason: anxiety, RLS Last Admin: 08/01/25 10:58 Dose: 2.5 mg Documented By: ANGELINA Diltiazem HCl (Diltiazem Hcl Cd 120 Mg Cap.Er.Deg) 120 mg PO DAILY [facility]; Protocol On Hold: 08/02/25 07:48 Last Admin: 08/01/25 10:16 Dose: Not Given Documented By: ANGELINA Non-Admin Reason: unable to give pills per speech Comments: provider Zee aware. Dronedarone (Dronedarone Hcl 400 Mg Tablet) 400 mg PO BID JEAN-PIERRE On Hold: 08/02/25 07:48 Last Admin: 08/01/25 20:00 Dose: Not Given Documented By: MAYA Non-Admin Reason: NPO/no pills per HAIRSPRING ADJUSTER Enoxaparin Sodium (Enoxaparin Sodium 120 Mg/0.8 Ml Syringe) 120 mg 1.5 mg/kg (120 mg) SUBCUT Q24H [facility] Last Admin: 08/03/25 10:38 Dose: 120 mg Documented By: JHONY Fentanyl (Fentanyl 100 Mcg Patch.Td72) 100 mcg TRANSDERMA Q72H [facility]RE Last Admin: 08/01/25 13:54 Dose: 100 mcg Documented By: ANGELINA Glucose (Glucose Gel 15 Gm Gel..Gram.) 15 gm PO Q15M PRN; Protocol PRN Reason: per Hypoglycemia Standing Ord. Hydromorphone HCl (Hydromorphone Hcl 2 Mg/Ml Vial) 4 mg IVPUSH Q2H PRN; Protocol PRN Reason: Pain, Severe (Pain Scale 7-10) Last Admin: 08/04/25 08:28 Dose: 4 mg Documented By: LANDON Hydromorphone HCl (Hydromorphone Hcl 1 Mg/Ml Syringe) 1 mg IVPUSH Q2H PRN; Protocol PRN Reason: Pain, Mild (Pain Scale 1-3) Last Admin: 07/31/25 13:44 Dose: 1 mg Documented By: ANGELINA Hydromorphone HCl (Hydromorphone Hcl 2 Mg/Ml Vial) 2 mg IVPUSH Q2H PRN; Protocol PRN Reason: Pain, Moderate(Pain Scale 4-6) Last Admin: 08/02/25 02:22 Dose: 2 mg Documented By: MAYA Nutrition (Parenteral) (Parenteral Nutrition) 1,800 mls @ 75 mls/hr IV .Q24H [facility]; Protocol Stop: 08/04/25 20:59 Last Admin: 08/03/25 21:38 Dose: 75 mls/hr Documented By: SRIKANTH Nutrition (Parenteral) (Parenteral Nutrition) 1,800 mls @ 75 mls/hr IV .Q24H [facility]; Protocol Stop: 08/05/25 20:59 Insulin Human Lispro (Insulin Lispro 100 Unit/Ml 3 Ml Vial) 0 unit SUBCUT QIDACHS [facility]; Protocol Last Admin: 08/04/25 08:31 Dose: 10 unit Documented By: LANDON Lactulose (Lactulose 20 Gm/30 Ml Solution) 30 gm PO DAILY PRN PRN Reason: Constipation Lidocaine (Lidocaine 4 % Patch Adh..Patch) 1 patch TRANSDERMA DAILY [facility]; Protocol Last Admin: 08/04/25 08:32 Dose: 1 patch Documented By: LANDON Magnesium Hydroxide (Milk Of Magnesia 30 Ml Oral.Susp) 30 ml PO DAILY PRN PRN Reason: Constipation Last Admin: 08/01/25 07:39 Dose: 30 ml Documented By: COLSARABJIT Melatonin (Melatonin 3 Mg Tablet) 6 mg PO BEDTIME PRN PRN Reason: Insomnia Pharmacy Consult (Consult Rx Parenteral Nutrition Ordering) 1 each MISCELLANE DAILY PRN PRN Reason: Consult order Sodium Chloride (0.9 % Sodium Chloride Flush 10 Ml Syringe) 10 ml IVFLUSH QSHIFT [facility] Last Admin: 08/04/25 08:51 Dose: 10 ml Documented By: LANDON Sucralfate (Sucralfate Oral Suspension 1 Gm/10 Ml Oral.Susp) 1 gm PO QIDACHS [facility] Last Admin: 08/04/25 08:28 Dose: 1 gm Documented By: LANDON Labs 08/01/25 09:29 08/04/25 05:45 Labs: Laboratory Results - last 24 hr 08/03/25 08/03/25 08/03/25 12:07 15:53 20:20 Hold Purple Top Anion Gap Estim Creat Clear Calc Estimated GFR POC Glucose 260 H 295 H 298 H Random Glucose Calcium Phosphorus Magnesium Albumin 08/04/25 08/04/25 05:45 08:03 Hold Purple Top SEE NOTE Anion Gap 14 Estim Creat Clear Calc 134.0 Estimated GFR > 60 POC Glucose 295 H Random Glucose 308 H Calcium 9.3 Phosphorus 4.1 Magnesium 2.1 Albumin 3.7 Assessment and Plan (1) Adenocarcinoma of esophagus: Status: Acute Plan 59yo M with metastatic esophageal adenoCA admitted due to dysphagia dysphagia due to poorly differentiated adenocarcinoma of the esophagus - PICC placed, on TPN and dependent on this - HAIRSPRING ADJUSTER consultation: NDD1 solids, thin liquids but for comfort only - on IV hydromorphone; on 08/01, started fentanyl patch 100 mcg/h with plan to eventually transition to fentanyl patch + MSIR liquid for breakthrough pain. Relying less on IV dilaudid with Fentanyl on - does not want hospice as he does want to be DNR/DNI - continue sucralfate -Not candiate for PEG -we discussed hospice yet again, but still declining DM2 with hyperglycemia - increase correction-dose lispro pAF: enoxaparin; cannot take diltiazem + dronaderone, pills not recommended by HAIRSPRING ADJUSTER COPD not acute: prn albuterol VTE ppx: enoxaparin dispo: SNF Total time managing care of this patient today: 35 minutes. Quality Stroke Does the patient have a stroke diagnosis?: No VTE Prior VTE?: No VTE Risk Level:: Medical - moderate - high VTE Device Contraindication: Treatment Not Indicated VTE Drug Contraindication: N/A - Med Ordered
--- NOTE | 2025-08-04 09:17 | MHC.CLN ---
F/U PO INTAKE 0% PER MD NOTE, PT IS NOT A CANDIDATE FOR PEG TUBE FEEDING DIET RX: PUREE WITH ENSURE TID (1050 KCALS, 60 G PROTEIN) CONTINUES WITH INABILITY TO TAKE ADEQUATE NUTRITION PO TO MEET NEEDS REVIEWED LABS COMMUNICATED WITH PHARMACY CONTINUE TPN AT MAX GOAL RATE 75ML/HR WITH 82G LIPIDS PROVIDES 2098 TOTAL KCALS (27KCALS/KG ABW), 270G DEXTROSE, 90G PROTEIN (1.2G/KG) REPLETE LYTES NEEDED
--- NOTE | 2025-08-04 11:33 | MHC.SL.SWA ---
Speech Pathologist Impression: Severe esophageal dysphagia Risk of Aspiration Due to: Dysphasia Diet Status: NDD1 (puree) with thin liquids Liquid Consistency and Strategies for Safe Swallow: Liquid Intake Recommendation: Thin Liquid Intake Strategies: Solid Food Consistency: Dietary Recommendations: Pureed (NDD1) Additional Modifications to Solid Foods: Oral Medication Intake: NPO Please contact the pharmacy regarding appropriate crushable or liquid drug formulations that are available whenever modified delivery is recommended. Compensatory Strategies and Precautions to be Taken for Safe Swallow: Sitting Upright (90 deg) Small Bites and Sips Rate of Ingestion Change Avoid Specific Foods Supervision While Eating and Drinking for Safe Swallow: None Needed Foods to Avoid: Swallowing Recommended Treatments: Compens. Strategy Educat. Recommendation for Speech: Inpatient Speech Therapy Comment: Pt seen for dysphagia tx, pt pain free this morning. Family at bedside. Oropharyngeal swallow WFL, pt tolerating sips of Ensure. Pt refused most PO offered but is on purees and thins d/t severity of esophageal dysphagia. Pt requested coffee with sugar and cream. RN consulted, pt on TPN, sugar substitute recommended. POC in discussion, palliative vs hospice. PLASTER BLOCK LAYER to follow as indicated. Frequency/Duration: M-F Daily Date Range for Service Req: Timeline to reassess: Electric Solderer Clinican/Clinical Fellow: No Supervisory Statement: I have reviewed and agree with the student/clinical fellow's documentation: No Speech Language Pathologist: Belgica Solano M.S., CCC-PLASTER BLOCK LAYER
[2025-08-04 11:50] LABS: Glucose, Whole Blood 274 mg/dL (60-115)
[2025-08-04] MEDS: fentaNYL 100 MCG PATCH.TD72 TRANSDERMA (12:09)
--- NOTE | 2025-08-04 12:36 | PC.NURSE ---
This editorial writer Witness Primary RN dispose of Fent Patch.
--- NOTE | 2025-08-04 12:38 | PC.NURSE ---
Removed fentanyl patch disposed of per policy, witnessed by DEENA Chavez.
[2025-08-04] MEDS: Milk of Magnesia 30 ML ORAL.SUSP PO (13:55)
[2025-08-04 15:13] VITALS: BP 154/77; PULSE 80; RESP 18; TEMP 36.3; O2SAT 97
--- NOTE | 2025-08-04 15:39 | MHC.CM.PN ---
met with family they are considering sending pt to snf without tpn and then putting him on hospice in the facility pt has many bed offers
[2025-08-04 15:59] LABS: Glucose, Whole Blood 254 mg/dL (60-115)
[2025-08-04 20:00] VITALS: BP 145/84; PULSE 81; RESP 18; TEMP 36.7; O2SAT 95
[2025-08-04 20:22] LABS: Glucose, Whole Blood 262 mg/dL (60-115)
[2025-08-04] MEDS: Parenteral Nutrition 1,800 ML 75 ML IV (20:57)
[2025-08-05 03:14] VITALS: BP 133/78; PULSE 81; RESP 18; TEMP 36.8; O2SAT 96
--- NOTE | 2025-08-05 07:24 | PC.NURSE ---
Fentanyl patch visualized by this RN on right abd, dated 08/04. Witnessed by RN Angely.
[2025-08-05 07:44] LABS: Albumin Level 3.6 g/dL (3.5-5.0); Anion Gap 13 (12-20); Blood Urea Nitrogen 18 mg/dL (9-16); Calcium 9.0 mg/dL (8.4-10.2); Carbon Dioxide 24 mmol/L (22-29); Chloride 104 mmol/L (96-108); Creatinine Clr Calc Pharmacy 156.3; Estimated Glomerular Filt Rate > 60; Magnesium 2.3 mg/dL (1.6-2.6); Potassium 4.3 mmol/L (3.3-5.1); Sodium 137 mmol/L (135-145)
[2025-08-05 07:49] LABS: Glucose, Whole Blood 269 mg/dL (60-115)
[2025-08-05 08:00] VITALS: BP 139/70; PULSE 78; RESP 16; TEMP 36.2; O2SAT 94
[2025-08-05] MEDS: Lidocaine 4 % Patch ADH..PATCH 1 PATCH TRANSDERMA (08:52)
[2025-08-05] MEDS: Sucralfate Oral Suspension 1 GM/10 ML ORAL.SUSP PO ×4 (08:52→21:46)
[2025-08-05] MEDS: 0.9 % Sodium Chloride Flush 10 ML SYRINGE IVFLUSH ×3 (08:53→21:46)
[2025-08-05 09:02] LABS: Glucose, Whole Blood 260 mg/dL (60-115)
--- NOTE | 2025-08-05 09:38 | HO.PM.IMPN ---
Subjective Subjective Date of Service: 08/05/25 Interval History: pain is reasonably controlled, completed DNR/DNI (MOLST form) Review of Systems Review of Systems: Yes all other systems are reviewed and are negative Physical Exam Vital Signs: Vital Signs: Last Vital Signs Temp 97.1 F 08/05/25 08:00 Pulse 78 08/05/25 08:00 Resp 16 08/05/25 08:00 BP 139/70 08/05/25 08:00 Pulse Ox 94 08/05/25 08:00 O2 Del Method Room Air 08/05/25 08:00 BMI result Body Mass Index 25.9 Objective Data Active Medications Albuterol Sulfate (Albuterol Sulfate 90 Mcg 8 Gm Inhaler) 2 puff INHALE Q4H PRN PRN Reason: for wheezing Apixaban (Apixaban 5 Mg Tablet) 5 mg PO BID JEAN-PIERRE On Hold: 07/29/25 10:24 Last Admin: 07/29/25 09:43 Dose: Not Given Documented By: KIT Non-Admin Reason: difficulty swallowing Calcium Carbonate (Calcium Carbonate 750 Mg Tab.Chew) 750 mg PO Q4H PRN PRN Reason: Heartburn Dextrose (Dextrose 50 % 25 Gm/50 Ml Syringe) 25 gm IVPUSH Q15M PRN; Protocol PRN Reason: per Hypoglycemia Standing Ord. Last Admin: 07/25/25 16:16 Dose: 25 gm Documented By: MADONNA Diazepam (Diazepam 10 Mg/2 Ml Cartridge) 2.5 mg IVPUSH Q6H PRN PRN Reason: anxiety, RLS Last Admin: 08/01/25 10:58 Dose: 2.5 mg Documented By: ANGELINA Diltiazem HCl (Diltiazem Hcl Cd 120 Mg Cap.Er.Deg) 120 mg PO DAILY [facility]; Protocol On Hold: 08/02/25 07:48 Last Admin: 08/01/25 10:16 Dose: Not Given Documented By: ANGELINA Non-Admin Reason: unable to give pills per speech Comments: provider Zee aware. Dronedarone (Dronedarone Hcl 400 Mg Tablet) 400 mg PO BID [facility]-PIERRE On Hold: 08/02/25 07:48 Last Admin: 08/01/25 20:00 Dose: Not Given Documented By: MAYA Non-Admin Reason: NPO/no pills per ACCESSIBILITY LIFT TECHNICIAN Enoxaparin Sodium (Enoxaparin Sodium 120 Mg/0.8 Ml Syringe) 120 mg 1.5 mg/kg (120 mg) SUBCUT Q24H [facility] Last Admin: 08/04/25 12:08 Dose: 120 mg Documented By: LANDON Fentanyl (Fentanyl 100 Mcg Patch.Td72) 100 mcg TRANSDERMA Q72H [facility] Last Admin: 08/04/25 12:09 Dose: 100 mcg Documented By: LANDON Glucose (Glucose Gel 15 Gm Gel..Gram.) 15 gm PO Q15M PRN; Protocol PRN Reason: per Hypoglycemia Standing Ord. Hydromorphone HCl (Hydromorphone Hcl 2 Mg/Ml Vial) 4 mg IVPUSH Q2H PRN; Protocol PRN Reason: Pain, Severe (Pain Scale 7-10) Last Admin: 08/05/25 08:52 Dose: 4 mg Documented By: MAGGIE Nutrition (Parenteral) (Parenteral Nutrition) 1,800 mls @ 75 mls/hr IV .Q24H [facility]; Protocol Stop: 08/05/25 20:59 Last Admin: 08/04/25 20:57 Dose: 75 mls/hr Documented By: STELLA Nutrition (Parenteral) (Parenteral Nutrition) 1,800 mls @ 75 mls/hr IV .Q24H [facility]; Protocol Stop: 08/06/25 20:59 Insulin Human Lispro (Insulin Lispro 100 Unit/Ml 3 Ml Vial) 0 unit SUBCUT QIDACHS [facility]; Protocol Last Admin: 08/05/25 09:02 Dose: 10 unit Documented By: MAGGIE Lactulose (Lactulose 20 Gm/30 Ml Solution) 30 gm PO DAILY PRN PRN Reason: Constipation Lidocaine (Lidocaine 4 % Patch Adh..Patch) 1 patch TRANSDERMA DAILY [facility]; Protocol Last Admin: 08/05/25 08:52 Dose: 1 patch Documented By: MAGGIE Magnesium Hydroxide (Milk Of Magnesia 30 Ml Oral.Susp) 30 ml PO DAILY PRN PRN Reason: Constipation Last Admin: 08/04/25 13:55 Dose: 30 ml Documented By: LANDON Melatonin (Melatonin 3 Mg Tablet) 6 mg PO BEDTIME PRN PRN Reason: Insomnia Last Admin: 08/04/25 21:05 Dose: 6 mg Documented By: STELLA Pharmacy Consult (Consult Rx Parenteral Nutrition Ordering) 1 each MISCELLANE DAILY PRN PRN Reason: Consult order Sodium Chloride (0.9 % Sodium Chloride Flush 10 Ml Syringe) 10 ml IVFLUSH QSHIFT [facility] Last Admin: 08/05/25 08:53 Dose: 10 ml Documented By: MAGGIE Sucralfate (Sucralfate Oral Suspension 1 Gm/10 Ml Oral.Susp) 1 gm PO QIDACHS [facility] Last Admin: 08/05/25 08:52 Dose: 1 gm Documented By: MAGGIE Labs 08/01/25 09:29 08/05/25 06:24 Labs: Laboratory Results - last 24 hr 08/04/25 08/04/25 08/04/25 11:45 15:50 20:09 Hold Purple Top Anion Gap Estim Creat Clear Calc Estimated GFR POC Glucose 274 H 254 H 262 H Random Glucose Calcium Phosphorus Magnesium Albumin 08/05/25 08/05/25 08/05/25 06:24 07:31 08:55 Hold Purple Top SEE NOTE Anion Gap 13 Estim Creat Clear Calc 156.3 Estimated GFR > 60 POC Glucose 269 H 260 H Random Glucose 285 H Calcium 9.0 Phosphorus 4.1 Magnesium 2.3 Albumin 3.6 Assessment and Plan (1) Adenocarcinoma of esophagus: Status: Acute Plan 59yo M with metastatic esophageal adenoCA admitted due to dysphagia dysphagia due to poorly differentiated adenocarcinoma of the esophagus - PICC placed, on TPN and dependent on this - ACCESSIBILITY LIFT TECHNICIAN consultation: NDD1 solids, thin liquids but for comfort only - on IV hydromorphone; on 08/01, started fentanyl patch 100 mcg/h with plan to eventually transition to fentanyl patch + MSIR liquid for breakthrough pain. Relying less on IV dilaudid with Fentanyl on - now agreable to hospice, completed MOLST, DNR/DNI - continue sucralfate -Not candiate for PEG -we discussed hospice yet again, but still declining DM2 with hyperglycemia -continue insulin pAF: enoxaparin; cannot take diltiazem + dronaderone, pills not recommended by ACCESSIBILITY LIFT TECHNICIAN COPD not acute: prn albuterol VTE ppx: enoxaparin dispo: SNF, case management working on this, I don't think he can go with TPN Total time managing care of this patient today: 35 minutes. Quality Stroke Does the patient have a stroke diagnosis?: No VTE Prior VTE?: No VTE Risk Level:: Medical - moderate - high VTE Device Contraindication: Treatment Not Indicated VTE Drug Contraindication: N/A - Med Ordered
--- NOTE | 2025-08-05 10:01 | MHC.CLN ---
F/U PO INTAKE REMAINS 0% PER MD NOTE, PT IS NOT A CANDIDATE FOR PEG TUBE FEEDING DIET RX: PUREE WITH ENSURE TID (1050 KCALS, 60 G PROTEIN) CONTINUES WITH INABILITY TO TAKE ADEQUATE NUTRITION TO MEET NEEDS REVIEWED LABS DISCUSSED WITH PHARMACY CONTINUE TPN AT MAX GOAL RATE 75ML/HR WITH 82G LIPIDS PROVIDES 2098 TOTAL KCALS (27KCALS/KG ABW), 270G DEXTROSE, 90G PROTEIN (1.2G/KG) REPLETE LYTES NEEDED FOLLOWING WITH TEAM
[2025-08-05 11:55] LABS: Glucose, Whole Blood 278 mg/dL (60-115)
--- NOTE | 2025-08-05 12:17 | MHC.CM.PN ---
Addendum entered by Mónica Engel 08/05/25 16:11: HOSPICE CONSULT COMPLETED PT WILL DC TO SNF WITH A PLAN TO SIGN ONTO HOSPICE REFERRALS ARE OUT, NO BED OFFERS AT THIS TIME Original Note: CM MET WITH PTS S/O, ROBERTO CARLOS, AND SISTER, LEXX MUSA [phone] AT BEDSIDE THEY ARE NOW INTERESTED IN A HOSPICE CONSULT THEY UNDERSTAND PT WOULD LIKELY GO TO A SNF, AND REQUEST IT BE CLOSE TO [facility] ON THE [place] REFERRALS WILL BE SENT AND HOSPICE CONSULT PENDING
--- NOTE | 2025-08-05 14:15 | MHC.SL.SWA ---
Speech Pathologist Impression: WFL (for comfort PO consistencies) Risk of Aspiration Due to: Dysphasia Diet Status: Recommend CONTINUE NDD1 (puree), THIN liquids Liquid Consistency and Strategies for Safe Swallow: Liquid Intake Recommendation: Thin Liquid Intake Strategies: Solid Food Consistency: Dietary Recommendations: Pureed (NDD1) Additional Modifications to Solid Foods: Oral Medication Intake: NPO Please contact the pharmacy regarding appropriate crushable or liquid drug formulations that are available whenever modified delivery is recommended. Compensatory Strategies and Precautions to be Taken for Safe Swallow: Sitting Upright (90 deg) Small Bites and Sips Rate of Ingestion Change Avoid Specific Foods Supervision While Eating and Drinking for Safe Swallow: None Needed Foods to Avoid: Swallowing Recommended Treatments: Compens. Strategy Educat. Recommendation for Speech: Inpatient Speech Therapy Comment:Patient seen for dysphagia treatment. Family at bedside ( and sister). Patient accepting pudding and water this date. Patient presenting with oropharyngeal swallowing function WFL for current consistencies. Patient with no overt s/sx of penetration/aspiration. Decreased frequency in Globus sensation this date. Family with questions on diet and what is allowed. All questions answered and patient and family in agreement with POC. Patient at baseline, not appropriate for any diet advancements d/t esophageal adenocarcinoma and continued poor PO intake/tolerance with current diet. EEO OFFICER to follow-up x1. Patient likely discharging to SNF on hospice. Recommend CONTINUE NDD1 (puree), THIN liquids. Frequency/Duration: M-F Daily; FOLLOW-UP x1 Date Range for Service Req: Timeline to reassess: Web Software Engineer Clinican/Clinical Fellow: No Supervisory Statement: I have reviewed and agree with the student/clinical fellow's documentation: No Speech Language Pathologist: Abigail Cervantes M.A., CCC-EEO OFFICER
[2025-08-05 15:38] VITALS: BP 132/92; PULSE 87; RESP 16; TEMP 36.6; O2SAT 92
[2025-08-05 16:27] LABS: Glucose, Whole Blood 280 mg/dL (60-115)
[2025-08-05 20:00] VITALS: BP 125/82; PULSE 85; RESP 14; TEMP 36; O2SAT 94
[2025-08-05 20:43] LABS: Glucose, Whole Blood 275 mg/dL (60-115)
[2025-08-05] MEDS: Parenteral Nutrition 1,800 ML 75 ML IV (21:43)
[2025-08-06 04:00] VITALS: BP 147/78; PULSE 89; RESP 16; TEMP 36.1; O2SAT 97
[2025-08-06] MEDS: Milk of Magnesia 30 ML ORAL.SUSP PO (05:28)
[2025-08-06 07:16] VITALS: BP 128/80; PULSE 76; RESP 16; TEMP 36.2; O2SAT 95
[2025-08-06 07:19] LABS: Albumin Level 3.6 g/dL (3.5-5.0); Anion Gap 14 (12-20); Blood Urea Nitrogen 17 mg/dL (9-16); Calcium 9.0 mg/dL (8.4-10.2); Carbon Dioxide 23 mmol/L (22-29); Chloride 104 mmol/L (96-108); Creatinine Clr Calc Pharmacy 156.3; Estimated Glomerular Filt Rate > 60; Magnesium 2.1 mg/dL (1.6-2.6); Potassium 4.0 mmol/L (3.3-5.1); Sodium 137 mmol/L (135-145)
[2025-08-06 07:32] LABS: Glucose, Whole Blood 274 mg/dL (60-115)
[2025-08-06] MEDS: Sucralfate Oral Suspension 1 GM/10 ML ORAL.SUSP PO ×2 (07:59→11:16)
[2025-08-06] MEDS: 0.9 % Sodium Chloride Flush 10 ML SYRINGE IVFLUSH (08:00)
[2025-08-06] MEDS: Lidocaine 4 % Patch ADH..PATCH 1 PATCH TRANSDERMA (08:00)
--- NOTE | 2025-08-06 08:21 | HO.PM.IMPN ---
Subjective Subjective Date of Service: 08/06/25 Interval History: No new issues, pain is controlled Review of Systems Review of Systems: Yes all other systems are reviewed and are negative Physical Exam Vital Signs: Vital Signs: Last Vital Signs Temp 97.1 F 08/06/25 07:16 Pulse 76 08/06/25 07:16 Resp 16 08/06/25 07:16 BP 128/80 08/06/25 07:16 Pulse Ox 95 08/06/25 07:16 O2 Del Method Room Air 08/06/25 07:16 BMI result Body Mass Index 25.9 Objective Data Active Medications Albuterol Sulfate (Albuterol Sulfate 90 Mcg 8 Gm Inhaler) 2 puff INHALE Q4H PRN PRN Reason: for wheezing Apixaban (Apixaban 5 Mg Tablet) 5 mg PO BID [facility] On Hold: 07/29/25 10:24 Last Admin: 07/29/25 09:43 Dose: Not Given Documented By: KIT Non-Admin Reason: difficulty swallowing Calcium Carbonate (Calcium Carbonate 750 Mg Tab.Chew) 750 mg PO Q4H PRN PRN Reason: Heartburn Dextrose (Dextrose 50 % 25 Gm/50 Ml Syringe) 25 gm IVPUSH Q15M PRN; Protocol PRN Reason: per Hypoglycemia Standing Ord. Last Admin: 07/25/25 16:16 Dose: 25 gm Documented By: MADONNA Diazepam (Diazepam 10 Mg/2 Ml Cartridge) 2.5 mg IVPUSH Q6H PRN PRN Reason: anxiety, RLS Last Admin: 08/01/25 10:58 Dose: 2.5 mg Documented By: ANGELINA Diltiazem HCl (Diltiazem Hcl Cd 120 Mg Cap.Er.Deg) 120 mg PO DAILY [facility]; Protocol On Hold: 08/02/25 07:48 Last Admin: 08/01/25 10:16 Dose: Not Given Documented By: ANGELINA Non-Admin Reason: unable to give pills per speech Comments: provider Zee aware. Dronedarone (Dronedarone Hcl 400 Mg Tablet) 400 mg PO BID [facility]ERRE On Hold: 08/02/25 07:48 Last Admin: 08/01/25 20:00 Dose: Not Given Documented By: MAYA Non-Admin Reason: NPO/no pills per ELEVATOR REPAIRER Enoxaparin Sodium (Enoxaparin Sodium 120 Mg/0.8 Ml Syringe) 120 mg 1.5 mg/kg (120 mg) SUBCUT Q24H [facility] Last Admin: 08/05/25 11:35 Dose: 120 mg Documented By: MAGGIE Fentanyl (Fentanyl 100 Mcg Patch.Td72) 100 mcg TRANSDERMA Q72H [facility] Last Admin: 08/04/25 12:09 Dose: 100 mcg Documented By: LANDON Glucose (Glucose Gel 15 Gm Gel..Gram.) 15 gm PO Q15M PRN; Protocol PRN Reason: per Hypoglycemia Standing Ord. Hydromorphone HCl (Hydromorphone Hcl 2 Mg/Ml Vial) 4 mg IVPUSH Q2H PRN; Protocol PRN Reason: Pain, Severe (Pain Scale 7-10) Last Admin: 08/06/25 07:59 Dose: 4 mg Documented By: MAGGIE Nutrition (Parenteral) (Parenteral Nutrition) 1,800 mls @ 75 mls/hr IV .Q24H [facility]; Protocol Stop: 08/06/25 20:59 Last Admin: 08/05/25 21:43 Dose: 75 mls/hr Documented By: STELLA Nutrition (Parenteral) (Parenteral Nutrition) 1,800 mls @ 75 mls/hr IV .Q24H [facility]; Protocol Stop: 08/07/25 20:59 Insulin Human Lispro (Insulin Lispro 100 Unit/Ml 3 Ml Vial) 0 unit SUBCUT QIDACHS [facility]; Protocol Last Admin: 08/06/25 08:00 Dose: 10 unit Documented By: MAGGIE Lactulose (Lactulose 20 Gm/30 Ml Solution) 30 gm PO DAILY PRN PRN Reason: Constipation Lidocaine (Lidocaine 4 % Patch Adh..Patch) 1 patch TRANSDERMA DAILY [facility]; Protocol Last Admin: 08/06/25 08:00 Dose: 1 patch Documented By: MAGGIE Magnesium Hydroxide (Milk Of Magnesia 30 Ml Oral.Susp) 30 ml PO DAILY PRN PRN Reason: Constipation Last Admin: 08/06/25 05:28 Dose: 30 ml Documented By: STELLA Melatonin (Melatonin 3 Mg Tablet) 6 mg PO BEDTIME PRN PRN Reason: Insomnia Last Admin: 08/04/25 21:05 Dose: 6 mg Documented By: STELLA Pharmacy Consult (Consult Rx Parenteral Nutrition Ordering) 1 each MISCELLANE DAILY PRN PRN Reason: Consult order Sodium Chloride (0.9 % Sodium Chloride Flush 10 Ml Syringe) 10 ml IVFLUSH QSHIFT [facility] Last Admin: 08/06/25 08:00 Dose: 10 ml Documented By: MAGGIE Sucralfate (Sucralfate Oral Suspension 1 Gm/10 Ml Oral.Susp) 1 gm PO QIDACHS [facility] Last Admin: 08/06/25 07:59 Dose: 1 gm Documented By: MAGGIE Labs 08/01/25 09:29 08/06/25 05:52 Labs: Laboratory Results - last 24 hr 08/05/25 08/05/25 08/05/25 08:55 11:38 16:19 Hold Purple Top Anion Gap Estim Creat Clear Calc Estimated GFR POC Glucose 260 H 278 H 280 H Random Glucose Calcium Phosphorus Magnesium Albumin 08/05/25 08/06/25 08/06/25 20:33 05:52 07:20 Hold Purple Top SEE NOTE Anion Gap 14 Estim Creat Clear Calc 156.3 Estimated GFR > 60 POC Glucose 275 H 274 H Random Glucose 280 H Calcium 9.0 Phosphorus 3.9 Magnesium 2.1 Albumin 3.6 Assessment and Plan (1) Adenocarcinoma of esophagus: Status: Acute Plan 59yo M with metastatic esophageal adenoCA admitted due to dysphagia dysphagia due to poorly differentiated adenocarcinoma of the esophagus -Not candidate for PEG - PICC placed and was getting TPN, in addition to diet per ELEVATOR REPAIRER below - ELEVATOR REPAIRER consultation: NDD1 solids, thin liquids but for comfort only - has been on IV hydromorphone; on 08/01, started fentanyl patch (increased to 125 mcg/h, morphine sulfate 10 q4 - now agreable to hospice, completed MOLST, DNR/DNI - continue sucralfate -Not candiate for PEG -we discussed hospice yet again, but still declining DM2 with hyperglycemia -continue insulin pAF: enoxaparin; cannot take diltiazem + dronaderone, pills not recommended by ELEVATOR REPAIRER COPD not acute: prn albuterol VTE ppx: enoxaparin dispo: SNF, case management working on this, I don't think he can go with TPN Total time managing care of this patient today: 35 minutes. Quality Stroke Does the patient have a stroke diagnosis?: No VTE Prior VTE?: No VTE Risk Level:: Medical - moderate - high VTE Device Contraindication: Treatment Not Indicated VTE Drug Contraindication: N/A - Med Ordered
--- NOTE | 2025-08-06 08:37 | PM.DS ---
DS: Providers Provider Date of Service: 08/06/25 Date of admission: 07/25/25 07:18 Date of discharge: 08/06/25 Primary care physician: Kris Ivory MD Consults: 07/25/25 10:19 Consult to Gastroenterology Routine Consulting Provider: [facility] Reason for consultation: dysphagia 07/26/25 10:26 Consult to General Surgery Routine Consulting Provider[place] [facility] Reason for consultation: ?GTube Has provider been notified: Yes 07/30/25 01:16 Consult to Wound Care Routine Consulting Provider[place] [facility] Reason for consultation: abrasions/brusies to BUE 07/31/25 00:39 Consult to Wound Care Routine Consulting Provider: [facility] Reason for consultation: blanchable redness to buttocks DS: Diagnosis Discharge Diagnosis (1) Adenocarcinoma of esophagus: Status: Acute DS: Summary Hospital Course Hospital Course: Admission HPI Chief Complaint: dysphagia 59-year-old man recently diagnosed with esophageal adenocarcinoma presenting with dysphagia. He reports that he was on able to swallow any liquids today. He took his medications yesterday but he reported he felt like his chest closed up and he had a very difficult time swallowing them. He reported has been getting worse over the last couple of days. He attempted to eat some noodle soup on and vomited afterwards. He reported pain to his right posterior shoulder and to his chest area under the right shoulder. He has not yet started on treatment for the cancer. His labs are all within normal limits. Chest x-ray negative for consolidation or effusion. Plan will be to admit patient for acute dysphagia. Hospital course: The patient was diagnosed with esophageal cancer with metastatic spread including 2 stomach. He presented with dysphagia, he was deemed not a candidate for a PEG tube. He was initiated on TPN via PICC line while in the hospital and was evaluated by DISEASE INTERVENTION SPECIALIST and it was also initiated on a diet although he is able to tolerate just liquids only. He has been evaluated by Oncology and not deemed to be a candidate for curative treatment, palliative at best. Following further discussion about his options the patient elected to be DNR DNI and to be transitioned to hospice. His main issue has been pain management. He has been initiated on fentanyl patch which will be titrated up to 125 mcg every 72 hours and to further adjusted as needed maximum pain control. Additionally he was on IV Dilaudid while in the hospital but this will be transitioned to oral morphine as needed for pain control. Time Attestation Discharge Coordination Time (in mins): 45 Quality: Safe Use of Opioids Does Pt have an Active Cancer Diagnosis on the Problem List?: Yes Opioid Measure Date for [facility] Report: 07/07/25 Opioid Measure Time for [facility] Report: 14:44 Quality: Stroke Does the patient have a stroke diagnosis?: No Physical Exam Vital Signs: Vital Signs: Last Vital Signs Temp 97.1 F 08/06/25 07:16 Pulse 76 08/06/25 07:16 Resp 16 08/06/25 07:16 BP 128/80 08/06/25 07:16 Pulse Ox 95 08/06/25 07:16 O2 Del Method Room Air 08/06/25 07:16 BMI result Body Mass Index 25.9 DS: Data Data Completed and Pending Completed studies during hospitalization [Text1]: Procedures Supplement Abdominal Wall with Synthetic Substitute, Open Approach (12/18/20) Labs on day of discharge: Laboratory Results - last 24 hr 08/05/25 08/05/25 08/05/25 08:55 11:38 16:19 Hold Purple Top Sodium Potassium Chloride Carbon Dioxide Anion Gap BUN Creatinine Estim Creat Clear Calc Estimated GFR POC Glucose 260 H 278 H 280 H Random Glucose Calcium Phosphorus Magnesium Albumin 08/05/25 08/06/25 08/06/25 20:33 05:52 07:20 Hold Purple Top SEE NOTE Sodium 137 Potassium 4.0 Chloride 104 Carbon Dioxide 23 Anion Gap 14 BUN 17 H Creatinine 0.48 L Estim Creat Clear Calc 156.3 Estimated GFR > 60 POC Glucose 275 H 274 H Random Glucose 280 H Calcium 9.0 Phosphorus 3.9 Magnesium 2.1 Albumin 3.6 Discharge Plan Discharge Anticipated Discharge Date/Time: 08/06/25 14:39 Patient Disposition: Xfer SNF Discharge Diagnosis: Esophageal carcinoma with Dysphagia Referrals: [facility] [Other] - 1 Week Kris Ivory MD [Primary Care Provider, Internal Medicine] - 1 Week Discharge Medications: New fentanyl 100 mcg/hr Patch 72 Hour 100 mcg transdermal Q72H Qty: 10 0RF Rx Instructions: Partial Fill upon patient request. morphine 10 mg/5 mL Solution 10 mg sublingual Q4H PRN (Reason: Pain, Severe (Pain Scale 7-10)) Qty: 100 0RF Rx Instructions: Partial Fill upon patient request. fentanyl 25 mcg/hr Patch 72 Hour 25 mcg transdermal Q72H Qty: 10 0RF Rx Instructions: Partial Fill upon patient request. insulin lispro [Admelog U-100 Insulin lispro] 100 unit/mL Solution See Rx Instructions .ROUTE .COMPLEX Qty: 10 0RF Protocol: Insulin Resistant 1st 24 hours Less than or equal to 110 ---- Give (units): 0 111 to 150 Give (units): 2 151 to 200 Give (units): 4 201 to 250 Give (units): 7 251 to 300 Give (units): 10 301 to 350 Give (units): 14 Greater than 350 Give (units): 18 Call MD if Blood Glucose > : 350 Rx Instructions: BG <111 0 units, 111-150 - 0 units, 151-200 2 units, 201-250 4 units, 251-300 6 units, 301-350 8 units, >350 10 units lactulose 10 gram/15 mL Solution 30 g PO DAILY PRN (Reason: Constipation) Qty: 1200 0RF Continued albuterol sulfate 90 mcg/actuation HFA aerosol inhaler 2 puff inhalation Q4-6H PRN (Reason: for wheezing) Qty: 8.5 2RF (DME) FreeStyle Maude 3 Plus Sensor Device See Rx Instructions .Route Qty: 3 11RF Rx Instructions: As directed (DME) FreeStyle Maude 3 Emmett Misc See Rx Instructions .Route Qty: 1 0RF Rx Instructions: As directed (DME) Freestyle glucometer See Rx Instructions .Route .MEDSUPPLY Qty: 1 0RF Rx Instructions: As directed- BID (DME) Freestyle glucometer lancets See Rx Instructions .Route .MEDSUPPLY Qty: 1 0RF Rx Instructions: As directed- BID (DME) Freestyle glucometer strips 2 times per day See Rx Instructions .Route .MEDSUPPLY Qty: 1 0RF Rx Instructions: As directed- BID polyethylene glycol 3350 [Gavilax] 17 gram/dose powder 17 g PO DAILY Qty: 510 2RF sucralfate [Carafate] 100 mg/mL suspension 10 ml PO QIDACHS Qty: 1000 2RF (DME) alchohol wipes See Rx Instructions .Route .MEDSUPPLY Qty: 1 3RF Rx Instructions: As directed (DME) pen needle, diabetic [1st Tier Unifine Pentips] 32 gauge x 5/32 needle See Rx Instructions .Route Qty: 100 0RF Rx Instructions: As directed once daily metformin 1,000 mg tablet 1,000 mg PO BID Qty: 180 0RF cholecalciferol (vitamin D3) [Vitamin D3] 25 mcg (1,000 unit) Capsule 2,000 unit PO DAILY ondansetron 4 mg tablet,disintegrating 4 mg PO Q8H PRN (Reason: nausea and vomiting) Qty: 20 0RF Discontinued Eliquis 5 mg tablet 5 mg PO BID Qty: 180 3RF diltiazem HCl 120 mg capsule,extended release 24hr 120 mg PO DAILY Qty: 90 3RF Jardiance 25 mg tablet 25 mg PO DAILY Qty: 90 3RF rosuvastatin 40 mg tablet 40 mg PO DAILY Qty: 90 3RF Multaq 400 mg tablet 400 mg PO BID Qty: 180 3RF insulin glargine [Lantus Solostar U-100 Insulin] 100 unit/mL (3 mL) insulin pen 10 unit subcut QPM Qty: 15 0RF pantoprazole 40 mg tablet,delayed release (DR/EC) 40 mg PO DAILY Qty: 30 0RF oxycodone 5 mg Tablet 5 mg PO Q6H PRN (Reason: Breakthrough Pain, Severe) Qty: 60 0RF Rx Instructions: Partial Fill upon patient request. Discharge Orders: Discharge Order (Routine); Ordered 08/06/25 Ordered By: Clarke Padilla Diet: Advance to usual diet Activity on Discharge: As tolerated Stand Alone Forms: Patient Portal Discharge page Print Language: Slovak Care Plan Goals: hospice for esopahageal cancer, goal of comfort Health Concerns: esophageal cncern, dysphagia Plan of Treatment: To SNF for hospice, comfort care Liquid diet if able to tolerate Assessment: see above
--- NOTE | 2025-08-06 08:56 | P.PNIM_ITS ---
Subjective Subjective Date of Service: 08/06/25 Interval History: No new issues, pain is controlled Review of Systems Review of Systems: Yes all other systems are reviewed and are negative Physical Exam 2 Vital Signs: Vital Signs: Last Vital Signs Temp 97.1 F 08/06/25 07:16 Pulse 76 08/06/25 07:16 Resp 16 08/06/25 07:16 BP 128/80 08/06/25 07:16 Pulse Ox 95 08/06/25 07:16 O2 Del Method Room Air 08/06/25 07:16 BMI result Body Mass Index 25.9 Objective Data Active Medications Albuterol Sulfate (Albuterol Sulfate 90 Mcg 8 Gm Inhaler) 2 puff INHALE Q4H PRN PRN Reason: for wheezing Apixaban (Apixaban 5 Mg Tablet) 5 mg PO BID JEAN-PIERRE On Hold: 07/29/25 10:24 Last Admin: 07/29/25 09:43 Dose: Not Given Documented By: KIT Non-Admin Reason: difficulty swallowing Calcium Carbonate (Calcium Carbonate 750 Mg Tab.Chew) 750 mg PO Q4H PRN PRN Reason: Heartburn Dextrose (Dextrose 50 % 25 Gm/50 Ml Syringe) 25 gm IVPUSH Q15M PRN; Protocol PRN Reason: per Hypoglycemia Standing Ord. Last Admin: 07/25/25 16:16 Dose: 25 gm Documented By: MADONNA Diazepam (Diazepam 10 Mg/2 Ml Cartridge) 2.5 mg IVPUSH Q6H PRN PRN Reason: anxiety, RLS Last Admin: 08/01/25 10:58 Dose: 2.5 mg Documented By: ANGELINA Diltiazem HCl (Diltiazem Hcl Cd 120 Mg Cap.Er.Deg) 120 mg PO DAILY [facility]; Protocol On Hold: 08/02/25 07:48 Last Admin: 08/01/25 10:16 Dose: Not Given Documented By: ANGELINA Non-Admin Reason: unable to give pills per speech Comments: provider Zee aware. Dronedarone (Dronedarone Hcl 400 Mg Tablet) 400 mg PO BID JEAN-PIERRE On Hold: 08/02/25 07:48 Last Admin: 08/01/25 20:00 Dose: Not Given Documented By: MAYA Non-Admin Reason: NPO/no pills per ELEMENTARY SCIENCE TEACHER Enoxaparin Sodium (Enoxaparin Sodium 120 Mg/0.8 Ml Syringe) 120 mg 1.5 mg/kg (120 mg) SUBCUT Q24H [facility] Last Admin: 08/05/25 11:35 Dose: 120 mg Documented By: MAGGIE Fentanyl (Fentanyl 100 Mcg Patch.Td72) 100 mcg TRANSDERMA Q72H JEAN-PIERRE; Protocol Fentanyl (Fentanyl 25 Mcg Patch.Td72) 25 mcg TRANSDERMA Q72H JEAN-PIERRE; Protocol Glucose (Glucose Gel 15 Gm Gel..Gram.) 15 gm PO Q15M PRN; Protocol PRN Reason: per Hypoglycemia Standing Ord. Nutrition (Parenteral) (Parenteral Nutrition) 1,800 mls @ 75 mls/hr IV .Q24H [facility]; Protocol Stop: 08/06/25 20:59 Last Admin: 08/05/25 21:43 Dose: 75 mls/hr Documented By: STELLA Nutrition (Parenteral) (Parenteral Nutrition) 1,800 mls @ 75 mls/hr IV .Q24H [facility]; Protocol Stop: 08/07/25 20:59 Insulin Human Lispro (Insulin Lispro 100 Unit/Ml 3 Ml Vial) 0 unit SUBCUT QIDACHS [facility]; Protocol Last Admin: 08/06/25 08:00 Dose: 10 unit Documented By: MAGGIE Lactulose (Lactulose 20 Gm/30 Ml Solution) 30 gm PO DAILY PRN PRN Reason: Constipation Lidocaine (Lidocaine 4 % Patch Adh..Patch) 1 patch TRANSDERMA DAILY [facility]; Protocol Last Admin: 08/06/25 08:00 Dose: 1 patch Documented By: MAGGIE Magnesium Hydroxide (Milk Of Magnesia 30 Ml Oral.Susp) 30 ml PO DAILY PRN PRN Reason: Constipation Last Admin: 08/06/25 05:28 Dose: 30 ml Documented By: STELLA Melatonin (Melatonin 3 Mg Tablet) 6 mg PO BEDTIME PRN PRN Reason: Insomnia Last Admin: 08/04/25 21:05 Dose: 6 mg Documented By: STELLA Morphine Sulfate (Morphine Sulfate Oral Vivi 10 Mg/5 Ml Solution) 10 mg SUBLINGUAL Q4H PRN PRN Reason: Pain, Severe (Pain Scale 7-10) Pharmacy Consult (Consult Rx Parenteral Nutrition Ordering) 1 each MISCELLANE DAILY PRN PRN Reason: Consult order Sodium Chloride (0.9 % Sodium Chloride Flush 10 Ml Syringe) 10 ml IVFLUSH QSHIFT [facility] Last Admin: 08/06/25 08:00 Dose: 10 ml Documented By: MAGGIE Sucralfate (Sucralfate Oral Suspension 1 Gm/10 Ml Oral.Susp) 1 gm PO QIDACHS [facility] Last Admin: 08/06/25 07:59 Dose: 1 gm Documented By: MAGGIE Labs 08/01/25 09:29 08/06/25 05:52 Labs: Laboratory Results - last 24 hr 08/05/25 08/05/25 08/05/25 08:55 11:38 16:19 Hold Purple Top Anion Gap Estim Creat Clear Calc Estimated GFR POC Glucose 260 H 278 H 280 H Random Glucose Calcium Phosphorus Magnesium Albumin 08/05/25 08/06/25 08/06/25 20:33 05:52 07:20 Hold Purple Top SEE NOTE Anion Gap 14 Estim Creat Clear Calc 156.3 Estimated GFR > 60 POC Glucose 275 H 274 H Random Glucose 280 H Calcium 9.0 Phosphorus 3.9 Magnesium 2.1 Albumin 3.6 Assessment and Plan (1) Adenocarcinoma of esophagus: Status: Acute Plan 59yo M with metastatic esophageal adenoCA admitted due to dysphagia dysphagia due to poorly differentiated adenocarcinoma of the esophagus -Not candidate for PEG - PICC placed and was getting TPN, in addition to diet per ELEMENTARY SCIENCE TEACHER below - ELEMENTARY SCIENCE TEACHER consultation: NDD1 solids, thin liquids but for comfort only - has been on IV hydromorphone; on 08/01, started fentanyl patch (increased to 125 mcg/h, morphine sulfate 10 q4 - now agreable to hospice, completed MOLST, DNR/DNI - continue sucralfate -Not candiate for PEG -we discussed hospice yet again, but still declining DM2 with hyperglycemia -continue insulin pAF: enoxaparin; cannot take diltiazem + dronaderone, pills not recommended by ELEMENTARY SCIENCE TEACHER COPD not acute: prn albuterol VTE ppx: enoxaparin dispo: SNF, case management working on this, I don't think he can go with TPN Total time managing care of this patient today: 35 minutes. Quality Stroke Does the patient have a stroke diagnosis?: No VTE Prior VTE?: No VTE Risk Level:: Medical - moderate - high VTE Device Contraindication: Treatment Not Indicated VTE Drug Contraindication: N/A - Med Ordered
[2025-08-06] MEDS: fentaNYL 100 MCG PATCH.TD72 TRANSDERMA (09:09)
--- NOTE | 2025-08-06 09:11 | PC.NURSE ---
Addendum entered by Deanna Morrison RN 08/06/25 11:20: 25mcg fent patch applied to right abd with RN Angely, site covered with tegaderm and dated, confirmed with Pharmacist for a total of 125mcg Original Note: 100mcg fent patch applied to left abd with edi analyst, site covered with tegaderm and dated.
--- NOTE | 2025-08-06 11:01 | MHC.CLN ---
F/U PLAN OF CARE TO DISCHARGE PATIENT TODAY TO SNF FOR HOSPICE CARE. TPN TO BE DISCONTINUED WITH HOSPICE STATUS. CONTINUE PUREE DIET WITH ENSURE TID, FOOD FOR COMFORT. RD AVAILABLE NEEDED.
[2025-08-06 11:22] LABS: Glucose, Whole Blood 293 mg/dL (60-115)
[2025-08-06] MEDS: Morphine Sulfate Oral Sol 10 MG/5 ML SOLUTION SUBLINGUAL ×2 (12:04→16:47)
--- NOTE | 2025-08-06 13:45 | MHC.CM.PN ---
pt to be dcd to [facility] today at 6 boaz barger notified
--- NOTE | 2025-08-06 14:38 | MHC.SLORD ---
Speech Language Pathology Order Status: SALON SALES CONSULTANT attempted to see patient this afternoon for f/u, but sleeping, not waking to verbal stimuli and light touch. Per CM, patient to d/c today to [facility] for hospice care- per RD, TPN to be discontinued w/ hospice status.
[2025-08-06 15:06] VITALS: BP 138/79; PULSE 83; RESP 18; TEMP 36.1; O2SAT 95
[2025-08-06 16:06] LABS: Glucose, Whole Blood 219 mg/dL (60-115)
--- NOTE | 2025-08-06 16:29 | PC.NURSE ---
PICC line removed per MD via IR nurse, pt tolerated well.
--- NOTE | 2025-08-06 16:30 | HO.REMOVAL ---
Removal of PICC/Midline Removal of PICC/Midline: Removal of PICC: 1. Date: 08/06/25 2. Reason removed: No Longer Needed 3. Inserted length: 5Fr Triple Lumen PASV PICC 40CM 4. Removed length: 5Fr Tiple Lumen PASV PICC 40CM INTACT 5. A dressing was placed over the site upon removal. No edema or bleeding at the site.
[2025-08-06 17:52] VITALS: BP 126/76; PULSE 87; RESP 18; TEMP 36.2; O2SAT 95
== END 2025-08-06 18:39 | disposition skilled nursing facility (03) | DRG 948 ==
LOC: HO.ED 04:08 → HO.EDOVER 07:29 → HO.S3 15:52
PROVIDERS: Family Medicine; Hospitalist; Nurse Practitioner Acute Care; Nurse Practitioner Family; Admitting Provider Internal Medicine; Emergency Provider Emergency Medicine; PCP Internal Medicine; Visit Provider Internal Medicine
DX: G89.3 Neoplasm related pain (acute) (chronic) (principal); C15.8 Malignant neoplasm of overlapping sites of esophagus; C77.0 Secondary and unspecified malignant neoplasm of lymph nodes of head, face and neck; C79.51 Secondary malignant neoplasm of bone; C79.89 Secondary malignant neoplasm of other specified sites; C78.89 Secondary malignant neoplasm of other digestive organs; Z66 Do not resuscitate; E11.65 Type 2 diabetes mellitus with hyperglycemia; R13.10 Dysphagia, unspecified; J44.9 Chronic obstructive pulmonary disease, unspecified; G47.33 Obstructive sleep apnea (adult) (pediatric); I48.0 Paroxysmal atrial fibrillation; G25.81 Restless legs syndrome; Z87.891 Personal history of nicotine dependence; Z79.899 Other long term (current) drug therapy
CPT/HCPCS: 36415; 36573; 71045; 71046; 74176; 80048; 80053; 80076; 81001; 82040; 82803; 82947; 83690; 83735; 84100; 84478; 85025; 85027; 92526; 92610; 93005; 99285; C1751; J0616; J1100; J1171; J1308; J1650; J1885; J2405; J2470; J2997; J3360; J7120

== ENCOUNTER → 2025-07-25 05:03 | Outpatient (BNV) | payer OTHER, SELFPAY | PROVIDERS: Admitting Provider Internal Medicine; Emergency Provider Emergency Medicine; PCP Internal Medicine; Visit Provider Internal Medicine | DX: R07.9 Chest pain, unspecified (principal) | CPT/HCPCS: 93010 ==

== ENCOUNTER → 2025-07-25 05:03 | Outpatient (BNV) | payer OTHER, SELFPAY | PROVIDERS: Emergency Provider Emergency Medicine; PCP Internal Medicine; Visit Provider Radiology Diagnostic Radiology | DX: R13.10 Dysphagia, unspecified (principal) | CPT/HCPCS: 71046 ==

== ENCOUNTER 2025-07-25 07:18 | Outpatient (BNV) | payer OTHER, SELFPAY | END 2025-07-26 11:49 | PROVIDERS: Admitting Provider Internal Medicine; Emergency Provider Emergency Medicine; PCP Internal Medicine; Visit Provider Radiology Diagnostic Radiology | DX: K42.9 Umbilical hernia without obstruction or gangrene (principal); M16.0 Bilateral primary osteoarthritis of hip; Z90.49 Acquired absence of other specified parts of digestive tract; Z45.2 Encounter for adjustment and management of vascular access device | CPT/HCPCS: 71045; 74176 ==

== ENCOUNTER → 2025-07-25 07:18 | Outpatient (BNV) | payer OTHER, SELFPAY | PROVIDERS: Admitting Provider Internal Medicine; Emergency Provider Emergency Medicine; PCP Internal Medicine; Visit Provider Nurse Practitioner Acute Care | DX: C15.9 Malignant neoplasm of esophagus, unspecified (principal); E11.9 Type 2 diabetes mellitus without complications; I48.0 Paroxysmal atrial fibrillation | CPT/HCPCS: 99223; 99233; 99499 ==

== ENCOUNTER → 2025-07-25 07:18 | Outpatient (BNV) | payer OTHER, SELFPAY | PROVIDERS: Admitting Provider Internal Medicine; Emergency Provider Emergency Medicine; PCP Internal Medicine; Visit Provider Internal Medicine Medical Oncology | DX: C15.9 Malignant neoplasm of esophagus, unspecified (principal); C77.1 Secondary and unspecified malignant neoplasm of intrathoracic lymph nodes; C77.2 Secondary and unspecified malignant neoplasm of intra-abdominal lymph nodes | CPT/HCPCS: 99222 ==

== ENCOUNTER → 2025-07-25 07:18 | Outpatient (BNV) | payer OTHER, SELFPAY | PROVIDERS: Admitting Provider Internal Medicine; Emergency Provider Emergency Medicine; PCP Internal Medicine; Visit Provider Physician Assistant Surgical | DX: C15.9 Malignant neoplasm of esophagus, unspecified (principal); R13.10 Dysphagia, unspecified | CPT/HCPCS: 99222; 99232 ==

== ENCOUNTER → 2025-07-25 07:18 | Outpatient (BNV) | payer OTHER, SELFPAY | PROVIDERS: Admitting Provider Internal Medicine; Emergency Provider Emergency Medicine; PCP Internal Medicine; Visit Provider Internal Medicine | DX: R13.10 Dysphagia, unspecified (principal); C15.9 Malignant neoplasm of esophagus, unspecified | CPT/HCPCS: 99232 ==

== ENCOUNTER 2025-08-07 11:30 | Inpatient (IN) | payer OTHER, SELFPAY ==
[2025-08-07 11:46] VITALS: BP 130/94; PULSE 92; RESP 18; TEMP 36.6; O2SAT 96; BMI 23.2
--- NOTE | 2025-08-07 11:56 | PC.NURSE ---
patient presents to the ED from [facility], sent for hospice has esophagael cancer. patient pain has not been able to be controlled while at the facility. Hospice RNs at bedside to provide information. patient is awake and alert. plan is to admit under [facility] hospice, patient has fletcher cath in place.
[2025-08-07] MEDS: Morphine Sulfate Oral Sol 10 MG/5 ML SOLUTION SUBLINGUAL (12:05)
--- OUTSIDE RECORDS SUMMARY | 2025-08-07 12:09 | XMS_ITS | Clinical Summary ---
Author Organization [facility] Address [address] [place] [address] Phone Care Team Providers Care Charter Boat Captain Name Role Phone Unavailable Primary Care Provider Unavailabl e Encounters Date Type Department Care Team Description 07/21/2025 7:19 AM EST - 07/21/2025 11:59 PM EST Hospital Encounter [facility] PET Scan [address] [place] [address] Esophagus cancer (CMS/HCC V24, CMS/HCC V28) Discharge Disposition: Home or Self Care from Last 3 Months Social History Tobacco [...] Routine 07/21/2025 9:02 AM EST Esophagus cancer ([facility] V24, CMS/[facility] V28) from Last 3 Months Results [...] Signed Date: 07/23/2025 05:06 ET Workstation ID: [id number] Transcribed By: Self Edit Transcribed Date: 07/23/2025 [...] Signed Date: 07/23/2025 05:06 ET Workstation ID: [id number] Transcribed By: Self Edit Transcribed Date: 07/23/2025 03:50 ET Altagracia Hernandez MD IMG NM PROCEDURES Final Result from Last 3 Months Insurance [facility] Member Subscriber Plan / Payer (Ef fective 2017-Present) Name:BRAN RAMEY Relation to Subscriber:Self Name:Bran Ramey Payer ID:[id number] Group ID:[id number] Type:Not on file Address: [facility] [address] [id number]
--- NOTE | 2025-08-07 12:12 | ED.GENADULT ---
HPI - General Adult General Chief complaint: General Medical Stated complaint: PAIN ON HOSPICE Time Seen by Provider: 08/07/25 11:59 Source: patient, EMS, RN notes reviewed and old records reviewed Mode of arrival: EMS History of Present Illness ED Provider: Selena Fraser PA-C HPI narrative: 59-year-old male with a past medical history of esophageal adenocarcinoma with metastatic spread, currently on Hospice, presenting back to the ED via EMS s/p discharge from our facility yesterday due to pain management and medications not being available for him at facility. Patient reports decreased p.o. intake. Patient has not received pain medications since 19:00 yesterday. Denies fever, chills Related Data Home Medications ?Medication ?Instructions ?Recorded ?Confirmed cholecalciferol (vitamin D3) 25 2,000 unit PO DAILY 12/14/20 07/25/25 mcg (1,000 unit) capsule (Vitamin D3) Previous Rx's ?Medication ?Instructions ?Recorded albuterol sulfate 90 mcg/actuation 2 puff inhalation Q4-6H PRN for 03/24/24 aerosol inhaler wheezing #8.5 ea 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 sensor (FreeStyle #3 ea 03/11/25 Maude 3 Plus Sensor device) 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,hotel concierge,cont #1 ea 03/11/25 (FreeStyle Maude 3 [place]) Freestyle glucometer #1 ea 03/23/25 Freestyle glucometer lancets #1 ea 05/19/25 Freestyle glucometer strips 2 #1 ea 05/19/25 times per day polyethylene glycol 3350 17 17 g PO DAILY #510 grams 05/28/25 gram/dose oral powder (Gavilax) ondansetron 4 mg disintegrating 4 mg PO Q8H PRN nausea and 06/18/25 tablet vomiting #20 tabs sucralfate 100 mg/mL oral 10 ml PO QIDACHS #1,000 mL 06/23/25 suspension (Carafate) alchohol wipes #1 ea 07/12/25 pen needle, diabetic 32 gauge x #100 ea 07/12/25 (1st Tier Unifine Pentips) metformin 1,000 mg tablet 1,000 mg PO BID #180 tabs 07/24/25 fentanyl 100 mcg/hr transdermal 100 mcg transdermal Q72H #10 ea 08/06/25 patch fentanyl 25 mcg/hr transdermal 25 mcg transdermal Q72H #10 ea 08/06/25 patch insulin lispro 100 unit/mL See Rx Instructions .Route 08/06/25 subcutaneous solution (Admelog .COMPLEX #10 mL U-100 Insulin lispro) lactulose 10 gram/15 mL oral 30 g (45 mL) PO DAILY PRN 08/06/25 solution Constipation #1,200 mL morphine 10 mg/5 mL oral solution 10 mg (5 mL) sublingual Q4H PRN 08/06/25 Pain, Severe (Pain Scale 7-10) #100 mL Allergies Allergy/AdvReac Type Severity Reaction Status Date / Time gabapentin AdvReac Intermediate dizziness Verified 08/07/25 11:49 Review of Systems Review of Systems: Yes all other systems are reviewed and are negative Constitutional: Constitutional: Reports as per [facility] Past Medical History Attestation statement: The following information was validated with the patient. Source: old records reviewed Medical History Obstructive sleep apnea Esophageal cancer Chronic pain syndrome Nicotine dependence, cigarettes, uncomplicated COPD (chronic obstructive pulmonary disease) Insomnia PAF (paroxysmal atrial fibrillation) Essential (primary) hypertension Opioid dependence with unspecified opioid-induced disorder Peripheral vascular disease due to secondary diabetes Vitamin D deficiency Type 2 diabetes mellitus without complications Surgical History History of endoscopy History of colonoscopy with polypectomy (04/30/23) History of colonoscopy (~04/30/23) History of incisional hernia repair History of inguinal hernia repair History of colostomy History of colostomy reversal History of dental surgery History of hernia repair Family History Family History Father No problems noted. Mother Lung cancer, Onset Age: 48 Brother No problems noted. Brother No problems noted. Brother No problems noted. Sister No problems noted. Social History Social History Household Members: Significant Other Housing: Apartment Housing Other:: one step to get into house Are you a primary lawn care technician to a significant other at home: No Do you presently have visiting nurse or other home services: No Alcohol intake: never Comment: with patient at present Patient Tobacco Use Status: Former Tobacco user Tobacco use type: Cigarette Cigarette Packs Per Day: 1 Years Smoked: 45 e-Cigarette/Vaping Use: Former Use Second Hand Smoke Exposure: Yes Substance Use Type: Marijuana Advance Directives: Yes Advance Directives on File: Yes Advance Directives Date on File: 04/25/22 service: No Current occupational status: disabled Current occupation: right handed Cognitive needs: No Hearing needs: No Vision needs: Yes (glasses) Physical Exam ED Vital Signs: Vital Signs - 24 hr 08/07/25 11:46 Temperature 97.8 F Pulse Rate 92 Respiratory Rate 18 Blood Pressure 130/94 H Pulse Oximetry 96 Oxygen Delivery Method Room Air BMI result Body Mass Index 23.2 Const General: cooperative, healthy appearing and no acute distress Orientation/consciousness: patient oriented x3 Limitations: no limitations HENMT Head: Yes normal to inspection and Yes atraumatic Ears: hearing grossly normal bilaterally General nose exam: Normal external nose present Face and sinus: Yes normal facial exam Eyes General: appearance normal, both eyes and all related structures EOM: EOMs intact bilaterally Neck Neck: Yes normal visual inspection and Yes no meningeal signs Resp Effort & Inspection: normal respiratory effort and no respiratory distress Cardio Rate: regular rate Skin Rashes: no rashes Wounds: no wounds Neuro General: patient oriented x3, tone normal and no meningeal signs Cranial nerves: Yes CN's II-XII intact bilaterally Gait exam (Neuro): Normal gait present Extrem General: Yes normal to inspection Medications Administered Discontinued Medications Generic Name Dose Route Start Last Admin Trade Name Freq PRN Reason Stop Dose Admin Morphine Sulfate 10 mg 08/07/25 12:02 08/07/25 12:05 Morphine Sulfate Oral Vivi 10 Mg/5 Ml Solution SUBLINGUAL 08/07/25 12:03 10 mg ONCE ONE Administration Medical Decision Making Medical Decision Making MDM Narrative: 59-year-old male with a past medical history of esophageal adenocarcinoma with metastatic spread, currently on Hospice, presenting back to the ED via EMS s/p discharge from our facility yesterday due to pain management and medications not being available for him at facility. On exam vital signs stable, NAD, nontoxic appearing. Patient appears uncomfortable, no p.o. intake since yesterday. states facility attempted to feed patient eggs and juice this morning for breakfast when he is liquids only, & has not received any pain medications since last night. [facility] Hospice nurses at bedside. Plan to admit patient to hospital for further management Please refer to course for remaining clinical decision making, interpretation of labs/imaging results, and discussions with consultants and/or family members. Differential Diagnosis Differential Diagnoses: The differential diagnosis associated with the presentation includes As above Admission/Observation Consideration of admission/observation: Escalation of care including admission/observation considered Consult Healthcare Provider Management of the patient was discussed with: Hospitalist Lab Data MDM Lab Attestation statement: I reviewed the patient's lab results. External Record Review External record reviewed: Inpatient record, Office record, Outpatient record, Prior outpatient labs, Prior outpatient radiology, Primary care record and Outside ED record Tests considered The following testing was considered but not selected: As above Chronic Conditions Patient?s care impacted by: Cancer Social Determinants Patient?s care significantly limited by Social Determinants of Health including: Problems related to primary support group Discharge Plan Discharge Patient Disposition: Admitted As Inpatient Interventions: Admission Worksheet (ED) Last Done: 08/07/25 11:58 Print Language: Taiwanese
--- NOTE | 2025-08-07 13:00 | P.HPHOSP_ITS ---
History of Present Illness Date of Service: 08/07/25 <Toña Roa NP - Last Filed: 08/07/25 15:53> Chief Complaint: terminal esophageal cancer <Toña Roa NP - Last Filed: 08/07/25 15:53> 59-year-old man recently diagnosed with terminal, inoperable esophageal adenocarcinoma admitted to [facility] hospice for hospice initiation. Apparently hospice had not been set up in the long-term and he was sent back to the ER. No new symptoms reported. <Toña Roa NP - Last Filed: 08/07/25 15:53> 59-year-old man recently diagnosed with terminal, inoperable esophageal adenocarcinoma admitted to [facility] hospice for hospice initiation. Apparently hospice had not been set up in the long-term and he was sent back to the ER. No new symptoms reported. <Clarke Padilla MD - Last Filed: 08/08/25 10:18> Review of Systems Review of Systems: Denies any recent fever chills or decrease in appetite respiratory denies any shortness of breath or cough cardiovascular denied chest pain gastrointestinal dysphagia genitourinary denies any dysuria frequency or hematuria musculoskeletal denies any joint pain or swelling neuropsych denies any weakness or seizures all other systems reviewed are negative <Toña Roa NP - Last Filed: 08/07/25 15:53> [facility] Medical History: Medical History Obstructive sleep apnea Esophageal cancer Chronic pain syndrome Nicotine dependence, cigarettes, uncomplicated COPD (chronic obstructive pulmonary disease) Insomnia PAF (paroxysmal atrial fibrillation) Essential (primary) hypertension Opioid dependence with unspecified opioid-induced disorder Peripheral vascular disease due to secondary diabetes Vitamin D deficiency Type 2 diabetes mellitus without complications <Toña Roa NP - Last Filed: 08/07/25 15:53> Family History: Family History Father No problems noted. Mother Lung cancer, Onset Age: 48 Brother No problems noted. Brother No problems noted. Brother No problems noted. Sister No problems noted. <Toña Roa NP - Last Filed: 08/07/25 15:53> Surgical History: Surgical History History of endoscopy History of colonoscopy with polypectomy (04/30/23) History of colonoscopy (~04/30/23) History of incisional hernia repair History of inguinal hernia repair History of colostomy History of colostomy reversal History of dental surgery History of hernia repair <Toña Roa NP - Last Filed: 08/07/25 15:53> Social History: Social History Household Members: Spouse Housing: House Housing Other:: one step to get into house Are you a primary personal care service provider to a significant other at home: No Do you presently have visiting nurse or other home services: No Alcohol intake: never Comment: with patient at present Patient Tobacco Use Status: Former Tobacco user Tobacco use type: Cigarette Cigarette Packs Per Day: 1 Years Smoked: 45 Smoked in Last 30 Days: No e-Cigarette/Vaping Use: Former Use Second Hand Smoke Exposure: Yes Substance Use Type: Marijuana Currently Displaying Signs/Symptoms of Drug Intoxication Withdrawal: No Have you been hit, kicked, punched, or otherwise hurt by someone within the past year? If so, by whom?: No Do you feel safe in your current relationship?: Yes Is there a partner from a previous relationship who is making you feel unsafe now?: No Are you made to feel afraid or neglected: No Advance Directives: Yes Advance Directives on File: Yes Advance Directives Date on File: 04/25/22 Do you have a plan to hurt others: No Plan Recently lost weight without trying: Yes How much weight loss: Unsure Eating poorly because of decreased appetite: No Nutrition screen score: 4 Nutrition Risks: Difficulty swallowing, On aspiration precautions and Poor intake 0-25% >4 days Poor oral hygiene: No service: No Current occupational status: disabled Current occupation: right handed Cognitive needs: No Hearing needs: No Vision needs: Yes (glasses) <Toña Roa NP - Last Filed: 08/07/25 15:53> Meds Allergies/Adverse reactions: Allergies Allergy/AdvReac Type Severity Reaction Status Date / Time gabapentin AdvReac Intermediate dizziness Verified 08/07/25 11:49 <Toña Roa NP - Last Filed: 08/07/25 15:53> Active Medications: Current Medications Dextrose (Dextrose 50 % 25 Gm/50 Ml Syringe) 25 gm IVPUSH Q15M PRN; Protocol PRN Reason: per Hypoglycemia Standing Ord. Glucose (Glucose Gel 15 Gm Gel..Gram.) 15 gm PO Q15M PRN; Protocol PRN Reason: per Hypoglycemia Standing Ord. Heparin Sodium (Porcine) (Heparin Sodium,Porcine 5,000 Unit/Ml Vial) 5,000 unit SUBCUT Q12H JEAN-PIERRE Insulin Human Lispro (Insulin Lispro 100 Unit/Ml 3 Ml Vial) 0 unit SUBCUT QIDACHS JEAN-PIERRE; Protocol Ondansetron HCl (Ondansetron Hcl 4 Mg/2 Ml Vial) 4 mg IVPUSH Q8H PRN PRN Reason: Nausea and Vomiting Sodium Chloride (0.9 % Sodium Chloride Flush 3 Ml Syringe) 3 ml IVFLUSH QSHIFT JEAN-PIERRE <Toña Roa NP - Last Filed: 08/07/25 15:53> Home medications: Home Medications ?Medication ?Instructions ?Recorded ?Confirmed ?Last Taken ?Type cholecalciferol (vitamin D3) 25 2,000 unit PO DAILY 08/07/25 07/24/25 History mcg (1,000 unit) capsule (Vitamin D3) insulin lispro 100 unit/mL 1 sliding scale dose subcut 08/07/25 08/07/25 Unknown History subcutaneous solution USEASDIRECTD <Toña Roa NP - Last Filed: 08/07/25 15:53> Physical Exam Vital Signs and Narrative: Vital Signs: Last Vital Signs Temp 97.8 F 08/07/25 11:46 Pulse 92 08/07/25 11:46 Resp 18 08/07/25 11:46 BP 130/94 H 08/07/25 11:46 Pulse Ox 96 08/07/25 11:46 O2 Del Method Room Air 08/07/25 11:46 BMI result Body Mass Index 23.2 <Toña Roa NP - Last Filed: 08/07/25 15:53> Appearing in no acute distress head is normocephalic atraumatic eyes pupils are PERRLA sclera is anicteric mouth throat mucous membranes are intact and moist neck is supple no lymphadenopathy, no JVD noted lung sounds are clear to auscultation heart regular rate rhythm, clear S1, S2 positive bowel sounds, abdomen is soft, nontender neuro patient is alert x3, no focal deficits <Toña Roa NP - Last Filed: 08/07/25 15:53> Assessment and Plan (1) Esophageal cancer: Status: Acute <Toña Roa NP - Last Filed: 08/07/25 15:53> 59 year old man admitted with terminal, inoperable esophageal cancer admitted for [facility] hospice initiation Esophageal carcinoma inoperable, now Hospice pain management with IV Dilaudid, fentanyl patch 125mcg Dysphagia secondary to esophageal cancer, recently diagnosed recently treated with TPN but stopped patient may take clear liquids as tolerated COPD, chronic No exacerbation albuterol as needed Diabetes mellitus type 2 declined Point of care and sliding scale as he does not want any invasive treatment Paroxysmal atrial fibrillation Metoprolol IV if severe tachycardia IAN no cpap DVT prophylaxis with ambulation, patient declining heparin as he does not want any invasive treatments DNR/DNI <Toña Roa NP - Last Filed: 08/07/25 15:53> Quality Stroke Does the patient have a stroke diagnosis?: No <Toña oRa NP - Last Filed: 08/07/25 15:53> VTE Prior VTE?: No <Toña Roa NP - Last Filed: 08/07/25 15:53> VTE Risk Level:: Medical - moderate - high <Toña Roa NP - Last Filed: 08/07/25 15:53> VTE Device Contraindication: Treatment Not Indicated <Toña Roa NP - Last Filed: 08/07/25 15:53> VTE Drug Contraindication: N/A - Med Ordered <Toña Roa NP - Last Filed: 08/07/25 15:53>
[2025-08-07 14:07] VITALS: BP 134/83; PULSE 72; RESP 18; TEMP 36.7; O2SAT 96
[2025-08-07 14:09] VITALS: BMI 23.2
--- NOTE | 2025-08-07 15:03 | PHA.MEDREC ---
Addendum entered by Salvatore Jamison 08/07/25 15:14: Update made to home medications, removed medications that were discontinued on discharge packet. Original Note: Pharmacy Consult ? Medication Reconciliation Pharmacy has completed the medication reconciliation. Confirmed medication list with patient. Patient has not had any updates to his medications after last discharge.
--- NOTE | 2025-08-07 15:16 | MHC.CM.PN ---
DX Esophageal CA Patient BIBA from [facility]. Patient was discharged to [facility] 08/06/25 19:30. Patient was sent to the SNF to be admitted on Hospice. He returned due to pain management issues. He is admitted under GIP for hospice initiation. DP will be to return to [facility] vs continue GIP @ [facility]. HCP is on file. PCP Dr Ivory
--- NOTE | 2025-08-07 15:20 | PHA.MEDREC ---
Pharmacy Consult ? Medication Reconciliation Pharmacy has completed the medication reconciliation.Med rec complete, patient just dischargd and came back
[2025-08-07 15:38] VITALS: BP 166/95; PULSE 86; RESP 18; TEMP 36.7; O2SAT 97
[2025-08-07] MEDS: fentaNYL 100 MCG PATCH.TD72 TRANSDERMA (16:28)
[2025-08-07] MEDS: 0.9 % Sodium Chloride Flush 3 ML SYRINGE IVFLUSH ×2 (16:38→23:47)
--- NOTE | 2025-08-07 18:36 | PC.NURSE ---
Fentanyl patch 100mcg and fentanyl patch 25mcg that pt came to facility with, removed from left and right abdomen at 16:30hrs, and discarded in sharps container. Witnessed by charge nurse Bhupendra Irby New patches administered.
[2025-08-07 23:36] VITALS: BP 140/88; PULSE 79; RESP 18; TEMP 36.3; O2SAT 97
[2025-08-08 06:52] VITALS: BP 152/80; PULSE 90; RESP 17; TEMP 36.6; O2SAT 94
[2025-08-08] MEDS: 0.9 % Sodium Chloride Flush 3 ML SYRINGE IVFLUSH ×3 (08:39→20:37)
--- NOTE | 2025-08-08 10:18 | HO.PM.IMPN ---
Subjective Subjective Date of Service: 08/09/25 Interval History: On hospice for esophageal cancer. Pain seems reasonably controlled, but med doesn't seem to last too long Physical Exam Exam: Exam: alert, not distress, Vital Signs: Vital Signs: Last Vital Signs Temp 98 F 08/08/25 06:52 Pulse 90 08/08/25 06:52 Resp 17 08/08/25 06:52 BP 152/80 H 08/08/25 06:52 Pulse Ox 94 08/08/25 06:52 O2 Del Method Room Air 08/08/25 06:52 BMI result Body Mass Index 23.2 Const: Other: Awake, comfortable, at the movment Objective Data Active Medications Dextrose (Dextrose 50 % 25 Gm/50 Ml Syringe) 25 gm IVPUSH Q15M PRN; Protocol PRN Reason: per Hypoglycemia Standing Ord. Fentanyl (Fentanyl 100 Mcg Patch.Td72) 100 mcg TRANSDERMA Q72H [facility] Last Admin: 08/07/25 16:28 Dose: 100 mcg Documented By: ANTONIO Fentanyl (Fentanyl 25 Mcg Patch.Td72) 25 mcg TRANSDERMA Q72H [facility] Last Admin: 08/07/25 16:36 Dose: 25 mcg Documented By: ANTONIO Glucose (Glucose Gel 15 Gm Gel..Gram.) 15 gm PO Q15M PRN; Protocol PRN Reason: per Hypoglycemia Standing Ord. Hydromorphone HCl (Hydromorphone Hcl 2 Mg/Ml Vial) 4 mg IVPUSH Q2H PRN; Protocol PRN Reason: Pain, Severe (Pain Scale 7-10) Last Admin: 08/08/25 08:37 Dose: 4 mg Documented By: ANTONIO Ondansetron HCl (Ondansetron Hcl 4 Mg/2 Ml Vial) 4 mg IVPUSH Q8H PRN PRN Reason: Nausea and Vomiting Sodium Chloride (0.9 % Sodium Chloride Flush 3 Ml Syringe) 3 ml IVFLUSH QSHIFT [facility] Last Admin: 08/08/25 08:39 Dose: 3 ml Documented By: ANTONIO Assessment and Plan (1) Hospice care patient: Status: Acute Plan 59-year-old man with terminal, inoperable esophageal cancer admitted for [facility] hospice initiation. Esophageal Carcinoma with Metastases Not operable; not a candidate for chemotherapy. Opted for hospice/comfort care. Pain management: IV hydromorphone (Dilaudid), fentanyl patch 125 mcg; will attempt transition to oral medications as tolerated. Dysphagia (secondary to esophageal cancer) Recently diagnosed. Not a candidate for PEG or G-tube; TPN discontinued. Able to drink liquids?continue as tolerated. Anxiety Diazepam (Valium) as needed. Chronic COPD No current exacerbation. Albuterol as needed. Diabetes Mellitus Type 2 Declined [id number] glucose checks and sliding scale insulin; does not want invasive treatment. Paroxysmal Atrial Fibrillation Metoprolol IV if severe tachycardia. Apixaban (Eliquis) stopped. Obstructive Sleep Apnea No CPAP. DVT Prophylaxis Ambulation only; patient declining heparin due to preference for no invasive treatments. Code Status DNR/DNI/Hospice Overall goal is pain control, discussed with patient and Quality Stroke Does the patient have a stroke diagnosis?: No VTE Prior VTE?: No VTE Risk Level:: Medical - moderate - high VTE Device Contraindication: Treatment Not Indicated VTE Drug Contraindication: N/A - Med Ordered
[2025-08-08] MEDS: diazePAM 10 MG/2 ML CARTRIDGE 5 MG IVPUSH (13:25)
[2025-08-08 15:27] VITALS: BP 116/80; PULSE 93; RESP 16; TEMP 36.6; O2SAT 93
[2025-08-08] MEDS: Sucralfate Oral Suspension 1 GM/10 ML ORAL.SUSP PO ×2 (15:50→20:36)
[2025-08-08 19:23] VITALS: BP 129/73; PULSE 99; RESP 18; TEMP 36.3; O2SAT 95
[2025-08-08 23:27] VITALS: BP 143/88; PULSE 86; RESP 14; TEMP 36.5; O2SAT 95
[2025-08-09 00:49] VITALS: RESP 18
[2025-08-09 07:32] VITALS: BP 129/90; PULSE 99; RESP 16; TEMP 36.2; O2SAT 96
[2025-08-09] MEDS: 0.9 % Sodium Chloride Flush 3 ML SYRINGE IVFLUSH ×3 (07:51→22:11)
[2025-08-09] MEDS: Sucralfate Oral Suspension 1 GM/10 ML ORAL.SUSP PO ×4 (07:52→20:28)
--- NOTE | 2025-08-09 09:06 | MHC.CM.PN ---
Addendum entered by Mónica Engel 08/09/25 15:39: [facility], [facility], AND [facility] HAVE DECLINED REFERRAL [facility], AND [facility] HAVE NOT RESPONDED, HOWEVER [facility] DECLINED ON SATURDAY WHEN PT WAS INITIALLY DISCHARGED Original Note: CM RECEIVED A MESSAGE FROM THE RN WHO STATES PTS S/O STATED THEY DO NOT WANT PT TO RETURN TO [facility] REFERRAL MADE TO OTHER LOCAL SNFS CONTRACTED WITH [facility]
--- NOTE | 2025-08-09 12:26 | MHC.CLN ---
NUTRITION PATIENT ADMITTED GIP HOSPICE CARE. RD AVAILABLE NEEDED.
[2025-08-09 15:15] VITALS: BP 133/81; PULSE 84; RESP 18; TEMP 36.3; O2SAT 95
[2025-08-09 23:47] VITALS: BP 144/81; PULSE 85; RESP 16; TEMP 36.6; O2SAT 96
[2025-08-10 00:28] VITALS: RESP 18
[2025-08-10 01:00] VITALS: RESP 18
[2025-08-10 03:00] VITALS: RESP 18
[2025-08-10 07:38] VITALS: BP 119/79; PULSE 83; RESP 16; TEMP 36.1; O2SAT 92
[2025-08-10] MEDS: Sucralfate Oral Suspension 1 GM/10 ML ORAL.SUSP PO ×4 (08:17→20:58)
[2025-08-10] MEDS: 0.9 % Sodium Chloride Flush 3 ML SYRINGE IVFLUSH ×3 (08:18→20:52)
[2025-08-10] MEDS: fentaNYL 50 MCG PATCH.TD72 TRANSDERMA (12:26)
[2025-08-10] MEDS: fentaNYL 100 MCG PATCH.TD72 TRANSDERMA (12:26)
--- NOTE | 2025-08-10 12:36 | MHC.CM.PN ---
Patient remains GIP hospice on IV pain meds. Per MD rounds, slowly transitioning to PO. CM met with patient, S.O. and sister at bedside. Reviewed plan for SNF on hospice when medically cleared/not GIP appropriate. [facility] is only bed offer at this time with [facility] and [facility] reviewing. Denials from 11 other facilities. They do not wish to return to [facility], and want patient to stay as local as possible, no specific facility preference. CM explained that referral will be expanded, but if no alternate bed offer is received then will need to discuss return to [facility] vs home w/ hospice. Patient/family verbalized understanding.
--- NOTE | 2025-08-10 13:34 | MHC.SL.SWA ---
Speech Pathologist Impression: oropharyngeal WFL, moderate-severe pharyngoesophageal Risk of Aspiration Due to: Current conditions and prognosis Dysphasia Diet Status: UPGRADE to FULL LIQUIDS Liquid Consistency and Strategies for Safe Swallow: Liquid Intake Recommendation: Liquid Intake Strategies: Solid Food Consistency: Dietary Recommendations: FULL LIQUIDS Additional Modifications to Solid Foods: Oral Medication Intake: NPO Please contact the pharmacy regarding appropriate crushable or liquid drug formulations that are available whenever modified delivery is recommended. Compensatory Strategies and Precautions to be Taken for Safe Swallow: Sit Upright Slow self-feeding rate Small sips/bites Alternate liquids/solids Remain upright after meal (30 minutes) Supervision While Eating and Drinking for Safe Swallow: None Needed Foods to Avoid: Swallowing Recommended Treatments: Compensatory strategies Recommendation for Speech: Inpatient Speech Therapy Comment: Patient with oropharyngeal swallowing function deemed WFL, moderate-severe pharyngoesophageal dysphagia secondary to esophageal cancer. Patient only able to tolerate small amounts of pureed solids prior to reporting pain in chest/Globus sensation. Patient known to FAMILY AND CONSUMER SCIENCE PROFESSOR services, last recommendation was comfort PO of NDD1, Thin liquids with TPN via PICC. Patient transitioned to hospice care and no longer receiving TPN. Patient placed on clear liquid diet this admission and requesting Ensures which are not permitted on such diet. Unable to evaluate with Ensure; patient with no s/sx of penetration/aspiration on thin or NTLs. Reported no Globus sensation with small bites of pudding. Given minimal tolerance of purees and more tolerance of liquids; recommend UPGRADE to FULL LIQUID DIET. Patient and family in agreement with POC. Recommendations communicated with RD, RN and MD via secure chat. FAMILY AND CONSUMER SCIENCE PROFESSOR to follow-up x1 as patient likely at baseline given conditions and prognosis. Frequency/Duration: Follow-up x1 Date Range for Service Req: Timeline to reassess: Stove Refinisher Clinican/Clinical Fellow: No Supervisory Statement: I have reviewed and agree with the student/clinical fellow's documentation: N/A Speech Language Pathologist: Abigail Cervantes M.A., [facility]-FAMILY AND CONSUMER SCIENCE PROFESSOR
--- NOTE | 2025-08-10 14:14 | HO.PM.IMPN ---
Subjective Subjective Date of Service: 08/10/25 Interval History: Complaints of persistent pain generalized Currently on Dilaudid q.2 hours hourly Also wishes to be liberalized from clear liquid diet Speech and language evaluated patient-recommendations to transitioned to full liquid Review of Systems Review of Systems: Yes all other systems are reviewed and are negative Physical Exam Exam: Exam: General: A&O x3, oriented to time place person and situation, comfortable, no pain Cardiac: S1, S2 auscultated with no S3/4, no MRG. Well perfused. Respiratory: Normal breath sounds auscultated throughout all lung zones, without wheezing, rales. Normal rate. GI/ : No abdominal pain on palpation, no masses or distentions. Zazueta catheter in place - alfonso-colored urine with very small clots MSK: Normal ambulation without pain at bony prominences or musculature Neurological: Normal neurological examination on overview, without obvious CN II-XII abnormalities. Vital Signs: Vital Signs: Last Vital Signs Temp 97.0 F 08/10/25 07:38 Pulse 83 08/10/25 07:38 Resp 16 08/10/25 07:38 BP 119/79 08/10/25 07:38 Pulse Ox 92 08/10/25 07:38 O2 Del Method Room Air 08/10/25 07:38 BMI result Body Mass Index 23.2 Objective Data Active Medications Albuterol Sulfate (Albuterol Sulfate 90 Mcg 8 Gm Inhaler) 2 puff INHALE RQ4H PRN PRN Reason: for wheezing Dextrose (Dextrose 50 % 25 Gm/50 Ml Syringe) 25 gm IVPUSH Q15M PRN; Protocol PRN Reason: per Hypoglycemia Standing Ord. Diazepam (Diazepam 10 Mg/2 Ml Cartridge) 5 mg IVPUSH Q4H PRN PRN Reason: Anxiety Last Admin: 08/08/25 13:25 Dose: 5 mg Documented By: ANTONIO Fentanyl (Fentanyl 100 Mcg Patch.Td72) 100 mcg TRANSDERMA Q72H [facility] Last Admin: 08/10/25 12:26 Dose: 100 mcg Documented By: LYNDSEY Fentanyl (Fentanyl 50 Mcg Patch.Td72) 50 mcg TRANSDERMA Q72H [facility] Last Admin: 08/10/25 12:26 Dose: 50 mcg Documented By: LYNDSEY Glucose (Glucose Gel 15 Gm Gel..Gram.) 15 gm PO Q15M PRN; Protocol PRN Reason: per Hypoglycemia Standing Ord. Hydromorphone HCl (Hydromorphone Hcl 2 Mg/Ml Vial) 4 mg IVPUSH Q2H PRN; Protocol PRN Reason: Pain, Severe (Pain Scale 7-10) Last Admin: 08/10/25 12:34 Dose: 4 mg Documented By: LYNDSEY Lactulose (Lactulose 20 Gm/30 Ml Solution) 30 gm PO DAILY PRN PRN Reason: Constipation Last Admin: 08/10/25 11:51 Dose: 30 gm Documented By: LYNDSEY Ondansetron HCl (Ondansetron Hcl 4 Mg/2 Ml Vial) 4 mg IVPUSH Q8H PRN PRN Reason: Nausea and Vomiting Polyethylene Glycol (Polyethylene Glycol 3350 17 Gm Powd.Pack) 17 gm PO DAILY [facility] Last Admin: 08/10/25 08:17 Dose: 17 gm Documented By: LYNDSEY Sodium Chloride (0.9 % Sodium Chloride Flush 3 Ml Syringe) 3 ml IVFLUSH QSHIFT [facility] Last Admin: 08/10/25 08:18 Dose: 3 ml Documented By: LYNDSEY Sucralfate (Sucralfate Oral Suspension 1 Gm/10 Ml Oral.Susp) 1 gm PO QIDACHS [facility] Last Admin: 08/10/25 11:50 Dose: 1 gm Documented By: LYNDSEY Assessment and Plan (1) Hospice care patient: Status: Acute (2) Opioid dependence with unspecified opioid-induced disorder: Status: Acute (3) PAF (paroxysmal atrial fibrillation): Status: Acute (4) Type 2 diabetes mellitus without complications: Status: Acute (5) Peripheral vascular disease due to secondary diabetes: Status: Acute (6) Decreased oral intake: Status: Acute (7) Vitamin D deficiency: Status: Acute (8) Esophageal mass: Status: Acute (9) Dysphagia: Status: Acute (10) Acute dehydration: Status: Acute (11) Esophageal cancer: Status: Acute (12) Adenocarcinoma of esophagus: Status: Acute (13) Chronic pain syndrome: Status: Acute (14) COPD (chronic obstructive pulmonary disease): Status: Acute Plan 59-year-old man with terminal, inoperable esophageal cancer admitted for [facility] hospice initiation. Esophageal Carcinoma with Metastases Not operable; not a candidate for chemotherapy. Opted for hospice/comfort care. Pain management: - IV hydromorphone (Dilaudid) - Fentanyl patch increased from 125 to 150 mcg; will attempt transition to oral medications as tolerated. - we will attempt transitioned to liquid morphine Dysphagia (secondary to esophageal cancer) Recently diagnosed. Not a candidate for PEG or G-tube; TPN discontinued. Able to drink liquids?continue as tolerated. Transitioned to full liquid diet as per BUSHLER evaluation 08/10 Anxiety Diazepam (Valium) as needed. Chronic COPD No current exacerbation. Albuterol as needed. Diabetes Mellitus Type 2 Declined [id number] glucose checks and sliding scale insulin; does not want invasive treatment. Paroxysmal Atrial Fibrillation Metoprolol IV if severe tachycardia. Apixaban (Eliquis) stopped Obstructive Sleep Apnea No CPAP. QUALITY METRICS - VTE: Patient declining chemical prophylaxis - CODE STATUS: DNR/DNI - DIET: Full liquid diet - DISPOSITION: Requires inpatient hospitalization for 2 midnights for IV analgesia Total time managing care of this patient today: 45 minutes. Quality Stroke Does the patient have a stroke diagnosis?: No VTE Prior VTE?: No VTE Risk Level:: Medical - moderate - high VTE Device Contraindication: Treatment Not Indicated VTE Drug Contraindication: N/A - Med Ordered
[2025-08-10 15:25] VITALS: BP 144/78; PULSE 91; RESP 16; TEMP 36.5; O2SAT 94
[2025-08-10] MEDS: Nicotine 21 MG PATCH.TD24 TRANSDERMA (21:53)
[2025-08-10 23:53] VITALS: BP 148/81; PULSE 106; RESP 18; TEMP 36.4; O2SAT 92
--- NOTE | 2025-08-11 02:00 | PC.NURSE ---
While giving the pt his PRN Dilaudid 4mg @ 01:08, see MAR, pt displayed suspicious/accusatory behavior. Pt pulled out his phone taking pictures of the medication/viral bottle and took out his notebook to write down the time it was given to him. Unit plug paster was notified of the situation. Will continue to monitor pt's behavior.
--- NOTE | 2025-08-11 02:09 | PM.EVENT ---
Event Note Date of Service: 08/11/25 Event Note: Per nursing, pt requesting nicotine patch as it has been 4 days since having a cigarette. Patch ordered. Time Spent With Patient Time: Total time managing care of this patient today ____ minutes.
[2025-08-11 03:11] VITALS: BP 137/82; PULSE 115; RESP 18; TEMP 36.6; O2SAT 94
[2025-08-11 07:40] VITALS: BP 152/88; PULSE 103; RESP 16; TEMP 36.1; O2SAT 95
[2025-08-11] MEDS: 0.9 % Sodium Chloride Flush 3 ML SYRINGE IVFLUSH ×2 (07:44→14:20)
[2025-08-11] MEDS: Nicotine 21 MG PATCH.TD24 TRANSDERMA (07:47)
[2025-08-11] MEDS: Sucralfate Oral Suspension 1 GM/10 ML ORAL.SUSP PO ×4 (07:47→19:56)
[2025-08-11] MEDS: fentaNYL 75 MCG PATCH.TD72 TRANSDERMA (09:46)
--- NOTE | 2025-08-11 13:08 | HO.PM.IMPN ---
Subjective Subjective Date of Service: 08/11/25 Interval History: remains in pain - receiving Dilaudid 4 mg q.12 hourly, and fentanyl patch 150 mcg q.72 hours. The patient describes significant and severe pain. Review of Systems Review of Systems: Yes all other systems are reviewed and are negative Physical Exam Exam: Exam: General: A&O x3, oriented to time place person and situation, comfortable, no pain Cardiac: S1, S2 auscultated with no S3/4, no MRG. Well perfused. Respiratory: Normal breath sounds auscultated throughout all lung zones, without wheezing, rales. Normal rate. GI/ : No abdominal pain on palpation, no masses or distentions. Zazueta catheter in place - alfonso-colored urine with very small clots MSK: Normal ambulation without pain at bony prominences or musculature Neurological: Normal neurological examination on overview, without obvious CN II-XII abnormalities. Vital Signs: Vital Signs: Last Vital Signs Temp 97.0 F 08/11/25 07:40 Pulse 103 H 08/11/25 07:40 Resp 16 08/11/25 07:40 BP 152/88 H 08/11/25 07:40 Pulse Ox 95 08/11/25 07:40 O2 Del Method Room Air 08/11/25 07:40 BMI result Body Mass Index 23.2 Objective Data Active Medications Albuterol Sulfate (Albuterol Sulfate 90 Mcg 8 Gm Inhaler) 2 puff INHALE RQ4H PRN PRN Reason: for wheezing Dexamethasone (Dexamethasone 4 Mg Tablet) 4 mg PO DAILY [facility] Last Admin: 08/11/25 07:47 Dose: 4 mg Documented By: LYNDSEY Dexamethasone (Dexamethasone 2 Mg Tablet) 2 mg PO BEDTIME [facility] Dextrose (Dextrose 50 % 25 Gm/50 Ml Syringe) 25 gm IVPUSH Q15M PRN; Protocol PRN Reason: per Hypoglycemia Standing Ord. Diazepam (Diazepam 10 Mg/2 Ml Cartridge) 5 mg IVPUSH Q4H PRN PRN Reason: Anxiety Last Admin: 08/08/25 13:25 Dose: 5 mg Documented By: ANTONIO Fentanyl (Fentanyl 100 Mcg Patch.Td72) 100 mcg TRANSDERMA Q72H [facility] Last Admin: 08/10/25 12:26 Dose: 100 mcg Documented By: LYNDSEY Fentanyl (Fentanyl 75 Mcg Patch.Td72) 75 mcg TRANSDERMA Q72H [facility] Last Admin: 08/11/25 09:46 Dose: 75 mcg Documented By: LYNDSEY Glucose (Glucose Gel 15 Gm Gel..Gram.) 15 gm PO Q15M PRN; Protocol PRN Reason: per Hypoglycemia Standing Ord. Hydromorphone HCl (Hydromorphone Hcl 2 Mg/Ml Vial) 4 mg IVPUSH Q2H PRN; Protocol PRN Reason: Pain, Severe (Pain Scale 7-10) Last Admin: 08/11/25 11:39 Dose: 4 mg Documented By: LYNDSEY Lactulose (Lactulose 20 Gm/30 Ml Solution) 30 gm PO DAILY PRN PRN Reason: Constipation Last Admin: 08/10/25 11:51 Dose: 30 gm Documented By: LYNDSEY Nicotine (Nicotine 21 Mg Patch.Td24) 21 mg TRANSDERMA DAILY [facility] Last Admin: 08/11/25 07:47 Dose: 21 mg Documented By: LYNDSEY Ondansetron HCl (Ondansetron Hcl 4 Mg/2 Ml Vial) 4 mg IVPUSH Q8H PRN PRN Reason: Nausea and Vomiting Polyethylene Glycol (Polyethylene Glycol 3350 17 Gm Powd.Pack) 17 gm PO DAILY [facility] Last Admin: 08/11/25 07:50 Dose: 17 gm Documented By: LYNDSEY Sodium Chloride (0.9 % Sodium Chloride Flush 3 Ml Syringe) 3 ml IVFLUSH QSHIFT [facility] Last Admin: 08/11/25 07:44 Dose: 3 ml Documented By: LYNDSEY Sucralfate (Sucralfate Oral Suspension 1 Gm/10 Ml Oral.Susp) 1 gm PO QIDACHS [facility] Last Admin: 08/11/25 11:39 Dose: 1 gm Documented By: LYNDSEY Assessment and Plan (1) Hospice care patient: Status: Acute (2) Opioid dependence with unspecified opioid-induced disorder: Status: Acute (3) PAF (paroxysmal atrial fibrillation): Status: Acute (4) Type 2 diabetes mellitus without complications: Status: Acute (5) Peripheral vascular disease due to secondary diabetes: Status: Acute (6) Esophageal mass: Status: Acute (7) Dysphagia: Status: Acute (8) Esophageal cancer: Status: Acute (9) Adenocarcinoma of esophagus: Status: Acute (10) Chronic pain syndrome: Status: Acute (11) COPD (chronic obstructive pulmonary disease): Status: Acute Plan 59-year-old man with terminal, inoperable esophageal cancer admitted for [facility] hospice initiation. Esophageal Carcinoma with Metastases Not operable; not a candidate for chemotherapy. Opted for hospice/comfort care. Pain management: - IV hydromorphone (Dilaudid) currently taking 4 mg IV q. 2 hourly. - IV Dilaudid will be transitioned to morphine concentrate 100 mg/5 mL: 4 mL Q 3 hourly (ie. 80 mg morphine sulfate); this has been sent to outpatient pharmacy 08/11/2025, to be administered as inpatient to trial the patient's tolerance of oral dosing prior to discharge - Fentanyl patch increased from 150 to 175 mcg Dysphagia (secondary to esophageal cancer) Recently diagnosed. Not a candidate for PEG or G-tube; TPN discontinued. Able to drink liquids?continue as tolerated. Transitioned to full liquid diet as per CLINICAL NURSE MANAGER evaluation 08/10 Anxiety Diazepam (Valium) as needed. Chronic COPD No current exacerbation. Albuterol as needed. Diabetes Mellitus Type 2 Declined qctgs-ag-oqio glucose checks and sliding scale insulin; does not want invasive treatment. Paroxysmal Atrial Fibrillation Metoprolol IV if severe tachycardia. Apixaban (Eliquis) stopped Obstructive Sleep Apnea No CPAP. QUALITY METRICS - VTE: Patient declining chemical prophylaxis - CODE STATUS: DNR/DNI - DIET: Full liquid diet - DISPOSITION: Requires inpatient hospitalization for 2 midnights for IV analgesia Total time managing care of this patient today: 45 minutes. Quality Stroke Does the patient have a stroke diagnosis?: No VTE Prior VTE?: No VTE Risk Level:: Medical - moderate - high VTE Device Contraindication: Treatment Not Indicated VTE Drug Contraindication: N/A - Med Ordered
--- NOTE | 2025-08-11 14:07 | MHC.CM.PN ---
Bed offer rec'd from [facility]. CM and hospice case manager met with patient/family at bedside. Reviewed bed offer and plan for pain management. They accept bed offer. [facility] will submit for auth. CM will continue to follow.
[2025-08-11 15:18] VITALS: BP 126/90; PULSE 97; RESP 18; TEMP 36.1; O2SAT 94
--- NOTE | 2025-08-11 15:46 | MHC.SLORD ---
Speech Language Pathology Order Status: Pt on hospice with [facility]. Full liquid diet ordered, pt intake remains minimal. Pain management ongoing. CHIEF COMMERCIAL OFFICER following as indicated.
[2025-08-12] VITALS: BP 146/83; PULSE 78; RESP 18; TEMP 36.8; O2SAT 97
[2025-08-12 03:22] VITALS: BP 134/84; PULSE 73; RESP 18; TEMP 36.4; O2SAT 95
[2025-08-12] MEDS: Nicotine 21 MG PATCH.TD24 TRANSDERMA (08:02)
[2025-08-12] MEDS: Sucralfate Oral Suspension 1 GM/10 ML ORAL.SUSP PO ×4 (08:02→20:06)
[2025-08-12] MEDS: 0.9 % Sodium Chloride Flush 3 ML SYRINGE IVFLUSH ×3 (08:03→20:07)
[2025-08-12 08:13] VITALS: BP 134/80; PULSE 87; RESP 18; TEMP 36.1; O2SAT 97
--- NOTE | 2025-08-12 14:54 | P.PNIM_ITS ---
Subjective Subjective Date of Service: 08/12/25 Interval History: No new complaints today. Pain is much better controlled with utilization of morphine 100 mg/5 mL concentration Anticipation for discharge to inpatient rehabilitation tomorrow Review of Systems Review of Systems: Yes all other systems are reviewed and are negative Physical Exam Exam: Exam: General: A&O x3, oriented to time place person and situation, comfortable, no pain Cardiac: S1, S2 auscultated with no S3/4, no MRG. Well perfused. Respiratory: Normal breath sounds auscultated throughout all lung zones, without wheezing, rales. Normal rate. GI/ : No abdominal pain on palpation, no masses or distentions. Zazueta catheter in place - alfonso-colored urine with very small clots MSK: Normal ambulation without pain at bony prominences or musculature Neurological: Normal neurological examination on overview, without obvious CN II-XII abnormalities. Vital Signs: Vital Signs: Last Vital Signs Temp 97.0 F 08/12/25 08:13 Pulse 87 08/12/25 08:13 Resp 18 08/12/25 08:13 BP 134/80 08/12/25 08:13 Pulse Ox 97 08/12/25 08:13 O2 Del Method Room Air 08/12/25 08:13 BMI result Body Mass Index 23.2 Objective Data Active Medications Albuterol Sulfate (Albuterol Sulfate 90 Mcg 8 Gm Inhaler) 2 puff INHALE RQ4H PRN PRN Reason: for wheezing Dexamethasone (Dexamethasone 4 Mg Tablet) 4 mg PO DAILY [facility] Last Admin: 08/12/25 08:04 Dose: 4 mg Documented By: LYNDSEY Dexamethasone (Dexamethasone 2 Mg Tablet) 2 mg PO BEDTIME [facility] Last Admin: 08/11/25 20:07 Dose: Not Given Documented By: AMY Non-Admin Reason: pt refused Dextrose (Dextrose 50 % 25 Gm/50 Ml Syringe) 25 gm IVPUSH Q15M PRN; Protocol PRN Reason: per Hypoglycemia Standing Ord. Diazepam (Diazepam 10 Mg/2 Ml Cartridge) 5 mg IVPUSH Q4H PRN PRN Reason: Anxiety Last Admin: 08/08/25 13:25 Dose: 5 mg Documented By: ANTONIO Fentanyl (Fentanyl 100 Mcg Patch.Td72) 100 mcg TRANSDERMA Q72H [facility] Last Admin: 08/10/25 12:26 Dose: 100 mcg Documented By: LYNDSEY Fentanyl (Fentanyl 75 Mcg Patch.Td72) 75 mcg TRANSDERMA Q72H [facility] Last Admin: 08/11/25 09:46 Dose: 75 mcg Documented By: LYNDSEY Glucose (Glucose Gel 15 Gm Gel..Gram.) 15 gm PO Q15M PRN; Protocol PRN Reason: per Hypoglycemia Standing Ord. Lactulose (Lactulose 20 Gm/30 Ml Solution) 30 gm PO DAILY PRN PRN Reason: Constipation Last Admin: 08/10/25 11:51 Dose: 30 gm Documented By: LYNDSEY Nicotine (Nicotine 21 Mg Patch.Td24) 21 mg TRANSDERMA DAILY [facility] Last Admin: 08/12/25 08:02 Dose: 21 mg Documented By: LYNDSEY Pt Own (Morphine Sulfate Oral Solution 20 Mg/Ml) 80 mg PO Q3H [facility] Last Admin: 08/12/25 14:28 Dose: 80 mg Documented By: LYNDSEY Ondansetron HCl (Ondansetron Hcl 4 Mg/2 Ml Vial) 4 mg IVPUSH Q8H PRN PRN Reason: Nausea and Vomiting Polyethylene Glycol (Polyethylene Glycol 3350 17 Gm Powd.Pack) 17 gm PO DAILY [facility] Last Admin: 08/12/25 08:03 Dose: 17 gm Documented By: LYNDSEY Scopolamine (Scopolamine 1.5 Mg Patch.Td.3) 1.5 mg EAR-BEHIND Q72H [facility] Last Admin: 08/11/25 16:39 Dose: 1.5 mg Documented By: LYNDSEY Sodium Chloride (0.9 % Sodium Chloride Flush 3 Ml Syringe) 3 ml IVFLUSH QSHIFT [facility] Last Admin: 08/12/25 14:32 Dose: 3 ml Documented By: LYNDSEY Sucralfate (Sucralfate Oral Suspension 1 Gm/10 Ml Oral.Susp) 1 gm PO QIDACHS [facility] Last Admin: 08/12/25 11:56 Dose: 1 gm Documented By: LYNDSEY Assessment and Plan (1) Opioid dependence with unspecified opioid-induced disorder: Status: Acute (2) Hospice care patient: Status: Acute (3) PAF (paroxysmal atrial fibrillation): Status: Acute (4) Type 2 diabetes mellitus without complications: Status: Acute (5) Peripheral vascular disease due to secondary diabetes: Status: Acute (6) Esophageal mass: Status: Acute (7) Esophageal cancer: Status: Acute (8) Carcinoma of esophagus: Status: Acute (9) Adenocarcinoma of esophagus: Status: Acute (10) Chronic pain syndrome: Status: Acute Plan 59-year-old man with terminal, inoperable esophageal cancer admitted for [facility] hospice initiation. Esophageal Carcinoma with Metastases Not operable; not a candidate for chemotherapy. Opted for hospice/comfort care. Pain management: - transitioned to morphine 100 mg/5 mL Q 3 hourly (4 mL = 80 mg) morphine - discontinue IV Dilaudid - fentanyl patch 175 mcg Dysphagia (secondary to esophageal cancer) Recently diagnosed. Not a candidate for PEG or G-tube; TPN discontinued. Able to drink liquids?continue as tolerated. Transitioned to full liquid diet as per SIGNAL TIMER evaluation 08/10 Anxiety Diazepam (Valium) as needed. Chronic COPD No current exacerbation. Albuterol as needed. Diabetes Mellitus Type 2 Declined kafix-dx-syav glucose checks and sliding scale insulin; does not want invasive treatment. Paroxysmal Atrial Fibrillation Metoprolol IV if severe tachycardia. Apixaban (Eliquis) stopped Obstructive Sleep Apnea No CPAP. QUALITY METRICS - VTE: Patient declining chemical prophylaxis - CODE STATUS: DNR/DNI --> SOAKER HELPER on discharge to inpatient hospice facility - DIET: Full liquid diet - DISPOSITION: Plan for discharge to inpatient hospice tomorrow Total time managing care of this patient today: 45 minutes. Quality Stroke Does the patient have a stroke diagnosis?: No VTE Prior VTE?: No VTE Risk Level:: Medical - moderate - high VTE Device Contraindication: Treatment Not Indicated VTE Drug Contraindication: N/A - Med Ordered
--- NOTE | 2025-08-12 15:33 | MHC.CM.PN ---
Per MD and hospice, plan for dc to [facility] 08/13. BLS booked for 9am. [facility] requesting that meds be sent to their pharmacy, [facility], today. Request sent to .
[2025-08-12 16:41] VITALS: BP 104/79; PULSE 98; RESP 15; TEMP 37; O2SAT 93
--- NOTE | 2025-08-12 17:59 | MHC.SL.SWA ---
Speech Pathologist Impression: WFL oropharyngeal swallowing; severe pharyngoesophageal- most likely more esophageal given esophageal hx and adenocarcinoma. Risk of Aspiration Due to: Dysphasia Diet Status: Recommend CONTINUE FULL LIQUIDS; advanced solids okay per patient's request Liquid Consistency and Strategies for Safe Swallow: Liquid Intake Recommendation: Liquid Intake Strategies: Solid Food Consistency: Dietary Recommendations: FULL LIQUIDS Additional Modifications to Solid Foods: Oral Medication Intake: NPO Please contact the pharmacy regarding appropriate crushable or liquid drug formulations that are available whenever modified delivery is recommended. Compensatory Strategies and Precautions to be Taken for Safe Swallow: Sitting Upright (90 deg) Small Bites and Sips Alternate Liquids/Solids Rate of Ingestion Change Supervision While Eating and Drinking for Safe Swallow: None Needed Foods to Avoid: Swallowing Recommended Treatments: Compens. Strategy Educat. Recommendation for Speech: Inpatient Speech Therapy Comment: Patient seen for re-evaluation per hospice request. Patient given regular solids of nova cracker to trial; minimal bites taken- no s/sx of penetration/aspiration, adequate mastication given edentulous, adequate cohesion and clearance. Patient with no s/sx of penetration/aspiration. Patient with WFL oropharyngeal swallowing; severe pharyngoesophageal- most likely more esophageal given esophageal hx and adenocarcinoma. Patient is cleared to have any solids; however per patient preference and tolerance as well as nutrition recommend CONTINUE with FULL LIQUID DIET. Patient with small bites x3 and then reporting chest pains and globus sensation. Patient benefits from current diet but should not be restricted if he requests any advanced solids. MD and RN updated on recommendations. Patient with expected discharge to SNF on hospice. BUFFET SERVER to follow. Frequency/Duration: Follow-up x1 Date Range for Service Req: Timeline to reassess: Dog Day Care Attendant Clinican/Clinical Fellow: No Supervisory Statement: I have reviewed and agree with the student/clinical fellow's documentation: N/A Speech Language Pathologist: Abigail Cervantes M.A., CCC-BUFFET SERVER
[2025-08-12 19:27] VITALS: BP 125/77; PULSE 100; RESP 20; TEMP 36.8; O2SAT 95
[2025-08-12 23:45] VITALS: BP 116/75; PULSE 85; RESP 18; TEMP 36.3; O2SAT 95
[2025-08-13 07:23] VITALS: BP 114/78; PULSE 88; RESP 18; TEMP 36.1; O2SAT 92
--- NOTE | 2025-08-13 08:12 | P.DS_ITS ---
DS: Providers Provider Date of admission: 08/07/25 12:33 Date of discharge: 08/13/25 Primary care physician: Kris Ivory MD DS: Diagnosis Discharge Diagnosis (1) Opioid dependence with unspecified opioid-induced disorder: Status: Acute (2) Hospice care patient: Status: Acute (3) PAF (paroxysmal atrial fibrillation): Status: Acute (4) Type 2 diabetes mellitus without complications: Status: Acute (5) Peripheral vascular disease due to secondary diabetes: Status: Acute (6) Esophageal mass: Status: Acute (7) Esophageal cancer: Status: Acute (8) Carcinoma of esophagus: Status: Acute (9) Adenocarcinoma of esophagus: Status: Acute (10) Chronic pain syndrome: Status: Acute DS: Summary Hospital Course Hospital Course: 59-year-old man with terminal, inoperable esophageal cancer admitted for [facility] hospice initiation. Chief Complaint: [facility] hospice initiation 59-year-old man recently diagnosed with esophageal adenocarcinoma with chief complaint of dysphagia, recent discharge 08/06/2025, admitted to hospital for [facility] hospice for hospice initiation. Apparently hospice had not been set up in the [facility] and he was sent back to the ER. No new symptoms reported. Esophageal Carcinoma with Metastases Not operable; not a candidate for chemotherapy. Opted for hospice/comfort care. Transitioned to [facility] hospice. Pain management: - transitioned to morphine concentrate [100 mg/5 mL], 4 mL = 80 mg) q3hrly - fentanyl patch 175 mcg Dysphagia (secondary to esophageal cancer) Recently diagnosed. Not a candidate for PEG or G-tube; TPN discontinued. Able to drink liquids?continue as tolerated. Transitioned to full liquid diet as per [employer] evaluation 08/10 Anxiety Diazepam (Valium) as needed. Chronic COPD No current exacerbation. Albuterol as needed. Diabetes Mellitus Type 2 Declined [id number] glucose checks and sliding scale insulin; does not want invasive treatment. Paroxysmal Atrial Fibrillation Metoprolol IV if severe tachycardia. Apixaban (Eliquis) stopped Status at Discharge Functional status at discharge: uses cane/walker Overall status at discharge: patient is not back to baseline Time Attestation Total time managing care of this patient today: 45 mintues. Discharge Coordination Time (in mins): 35 Quality: Safe Use of Opioids Does Pt have an Active Cancer Diagnosis on the Problem List?: Yes Opioid Measure Date for CMS Report: 07/14/25 Opioid Measure Time for CMS Report: 08:16 Quality: Stroke Does the patient have a stroke diagnosis?: No Physical Exam Exam: Exam: General: A&O x3, oriented to time place person and situation, comfortable, no pain Cardiac: S1, S2 auscultated with no S3/4, no MRG. Well perfused. Respiratory: Normal breath sounds auscultated throughout all lung zones, without wheezing, rales. Normal rate. GI/ : No abdominal pain on palpation, no masses or distentions. Zazueta catheter in place - alfonso-colored urine with very small clots MSK: Normal ambulation without pain at bony prominences or musculature Neurological: Normal neurological examination on overview, without obvious CN II-XII abnormalities. Vital Signs: Vital Signs: Last Vital Signs Temp 96.9 F 08/13/25 07:23 Pulse 88 08/13/25 07:23 Resp 18 08/13/25 07:23 BP 114/78 08/13/25 07:23 Pulse Ox 92 08/13/25 07:23 O2 Del Method Room Air 08/13/25 07:23 BMI result Body Mass Index 23.2 DS: Data Data Completed and Pending Completed studies during hospitalization [Text1]: Procedures Supplement Abdominal Wall with Synthetic Substitute, Open Approach (12/18/20) Discharge Plan Discharge Anticipated Discharge Date/Time: 08/13/25 08:16 Patient Disposition: Hospice - Medical Facility Discharge Diagnosis: Metastatic esophageal cancer on [facility] hospice Referrals: [facility] [Outside] - 1 Day Referral Note: senior living care w/ hosp[facility] [Outside] - 1 Day Referral Note: [facility] will provide hospice services and will meet you at the facility Kris Ivory MD [Primary Care Provider, Internal Medicine] - 1 Week Discharge Medications: New fentanyl 100 mcg/hr Patch 72 Hour 100 mcg transdermal Q72H 9 Days Qty: 3 0RF Rx Instructions: Partial Fill upon patient request. fentanyl 75 mcg/hr Patch 72 Hour 75 mcg transdermal Q72H 9 Days Qty: 3 0RF Rx Instructions: Partial Fill upon patient request. morphine concentrate 100 mg/5 mL (20 mg/mL) solution 80 mg PO Q3H 7 Days Qty: 224 0RF Rx Instructions: Partial Fill upon patient request. scopolamine base [Transderm-Scop] 1 mg over 3 days Patch 3 Day 1.5 mg EAR-BEHIND Q72H 9 Days Qty: 4 0RF nicotine 21 mg/24 hr Patch 24 Hour 21 mg transdermal DAILY 7 Days Qty: 7 0RF dexamethasone 2 mg Tablet 2 mg PO BEDTIME 14 Days Qty: 14 0RF dexamethasone 4 mg Tablet 4 mg PO DAILY 14 Days Qty: 14 0RF Continued polyethylene glycol 3350 [Gavilax] 17 gram/dose powder 17 g PO DAILY Qty: 510 2RF sucralfate [Carafate] 100 mg/mL suspension 10 ml PO QIDACHS Qty: 1000 2RF ondansetron 4 mg tablet,disintegrating 4 mg PO Q8H PRN (Reason: nausea and vomiting) Qty: 20 0RF lactulose 10 gram/15 mL Solution 30 g PO DAILY PRN (Reason: Constipation) Qty: 1200 0RF Discontinued metformin 1,000 mg tablet 1,000 mg PO BID Qty: 180 0RF cholecalciferol (vitamin D3) [Vitamin D3] 25 mcg (1,000 unit) Capsule 2,000 unit PO DAILY fentanyl 100 mcg/hr Patch 72 Hour 100 mcg transdermal Q72H Qty: 10 0RF Rx Instructions: Partial Fill upon patient request. morphine 10 mg/5 mL Solution 10 mg sublingual Q4H PRN (Reason: Pain, Severe (Pain Scale 7-10)) Qty: 100 0RF Rx Instructions: Partial Fill upon patient request. fentanyl 25 mcg/hr Patch 72 Hour 25 mcg transdermal Q72H Qty: 10 0RF Rx Instructions: Partial Fill upon patient request. insulin lispro 100 unit/mL Solution 1 sliding scale dose SUBCUT USEASDIRECTD Protocol: Insulin Correction Scale Less than or equal to 110 ---- Give (units): 0 111 to 150 Give (units): 2 151 to 200 Give (units): 4 201 to 250 Give (units): 7 251 to 300 Give (units): 10 301 to 350 Give (units): 14 Greater than 350 Give (units): 18 Call MD if Blood Glucose > : 350 No Action albuterol sulfate 90 mcg/actuation HFA aerosol inhaler 2 puff inhalation Q4-6H PRN (Reason: for wheezing) Qty: 8.5 2RF (DME) FreeStyle Maude 3 Plus Sensor Device See Rx Instructions .Route Qty: 3 11RF Rx Instructions: As directed (DME) FreeStyle Maude 3 [place] Misc See Rx Instructions .Route Qty: 1 0RF Rx Instructions: As directed (DME) Freestyle glucometer See Rx Instructions .Route .MEDSUPPLY Qty: 1 0RF Rx Instructions: As directed- BID (DME) Freestyle glucometer lancets See Rx Instructions .Route .MEDSUPPLY Qty: 1 0RF Rx Instructions: As directed- BID (DME) Freestyle glucometer strips 2 times per day See Rx Instructions .Route .MEDSUPPLY Qty: 1 0RF Rx Instructions: As directed- BID (DME) alchohol wipes See Rx Instructions .Route .MEDSUPPLY Qty: 1 3RF Rx Instructions: As directed (DME) pen needle, diabetic [1st Tier Unifine Pentips] 32 gauge x 5/32 needle See Rx Instructions .Route Qty: 100 0RF Rx Instructions: As directed once daily Discharge Orders: Discharge Order (Routine); Ordered 08/13/25 Ordered By: Mariam Thakur Diet: Advance to usual diet Activity on Discharge: As tolerated Stand Alone Forms: Patient Portal Discharge page Print Language: Mohawk Care Plan Goals: As above Health Concerns: As above Plan of Treatment: Being transitioned to [facility] Assessment: Being transitioned to [facility] hosp[facility]
[2025-08-13] MEDS: Sucralfate Oral Suspension 1 GM/10 ML ORAL.SUSP PO (08:19)
--- NOTE | 2025-08-13 08:49 | MHC.CM.PN ---
PT WILL DC TO [facility] WITH [facility] SERVICES AT 0900 HOURS [facility]IA [facility] PT, S/O, SNF, [facility], AND RN AWARE SIGNED DCS SENT TO SNF VIA [facility]
== END 2025-08-13 09:39 | disposition hospice, inpatient (51) | DRG 951 ==
LOC: HO.ED 12:13 → HO.S3 12:39
PROVIDERS: Admitting Provider Nurse Practitioner Acute Care; Emergency Provider Emergency Medicine; PCP Internal Medicine; Visit Provider Hospitalist
DX: Z51.5 Encounter for palliative care (principal); C15.9 Malignant neoplasm of esophagus, unspecified; J44.9 Chronic obstructive pulmonary disease, unspecified; I48.0 Paroxysmal atrial fibrillation; E11.9 Type 2 diabetes mellitus without complications; F41.9 Anxiety disorder, unspecified; F17.210 Nicotine dependence, cigarettes, uncomplicated; Z71.6 Tobacco abuse counseling; Z79.899 Other long term (current) drug therapy
CPT/HCPCS: 92526; 92610; 99285; J1171; J3360; J8540

== ENCOUNTER → 2025-08-07 12:33 | Outpatient (BNV) | payer OTHER, SELFPAY | PROVIDERS: Admitting Provider Nurse Practitioner Acute Care; Emergency Provider Emergency Medicine; PCP Internal Medicine; Visit Provider Nurse Practitioner Acute Care | DX: Z51.5 Encounter for palliative care (principal) | CPT/HCPCS: 99223; 99232; 99233; 99499 ==

== ENCOUNTER 2025-08-17 13:10 | Emergency (ER) | payer OTHER, SELFPAY ==
[2025-08-17 13:29] VITALS: BP 148/96; PULSE 130; O2SAT 96
[2025-08-17 13:30] VITALS: BP 170/84; PULSE 131; RESP 22; TEMP 36.8; O2SAT 94; BMI 27.4
--- NOTE | 2025-08-17 14:00 | PC.NURSE ---
visitor states she spoke w/ hospice services who stated he is here to get the bleeding under control and to replace the catheter. and if his hr is elevated he may need his ativan for anxiety.
--- NOTE | 2025-08-17 14:12 | MHC.CM.ED ---
Received notification from [facility] that patient is active with their agency and has been at [facility] for hospice care. Plan is for fletcher to be replaced and then return to [facility]. Anayeli SHAFFER aware. Return referrals made to [facility] and [facility] [place].
--- NOTE | 2025-08-17 14:36 | PC.NURSE ---
attempted to place fletcher in patient, unsuccessful. large clots after removing fletcher.
--- NOTE | 2025-08-17 16:04 | ED.GENADULT ---
HPI - General Adult General Chief complaint: General Medical Stated complaint: blood in cath, A&O x2 tachy 130, O2 94% on 2L nc Time Seen by Provider: 08/17/25 16:04 History of Present Illness ED Provider: Verna DOMINGO narrative: The patient is a 59-year-old male who was on hospice care for esophageal cancer. He has also had a urinary catheter for the last 3 weeks. He has been doing his hospice care at his home at [facility]. This morning at around 08:00 he accidentally pulled his catheter out. There was blood at penile meatus. Staff was unable to replace the catheter at the facility and so ultimately the patient was sent to the emergency room for catheter replacement under hospice care. Related Data Previous Rx's ?Medication ?Instructions ?Recorded albuterol sulfate 90 mcg/actuation 2 puff inhalation Q4-6H PRN for 03/24/24 aerosol inhaler wheezing #8.5 ea polyethylene glycol 3350 17 17 g PO DAILY #510 grams 05/28/25 gram/dose oral powder (Gavilax) ondansetron 4 mg disintegrating 4 mg PO Q8H PRN nausea and 06/18/25 tablet vomiting #20 tabs sucralfate 100 mg/mL oral 10 ml PO QIDACHS #1,000 mL 06/23/25 suspension (Carafate) lactulose 10 gram/15 mL oral 30 g (45 mL) PO DAILY PRN 08/06/25 solution Constipation #1,200 mL dexamethasone 2 mg tablet 2 mg PO BEDTIME 14 days #14 tabs 08/12/25 dexamethasone 4 mg tablet 4 mg PO DAILY 14 days #14 tabs 08/12/25 fentanyl 100 mcg/hr transdermal 100 mcg transdermal Q72H 9 days #3 08/12/25 patch ea fentanyl 75 mcg/hr transdermal 75 mcg transdermal Q72H 9 days #3 08/12/25 patch ea morphine concentrate 100 mg/5 mL 80 mg (4 mL) PO Q3H 7 days #224 mL 08/12/25 (20 mg/mL) oral solution nicotine 21 mg/24 hr daily 21 mg transdermal DAILY 7 days #7 08/12/25 transdermal patch ea scopolamine base 1 mg over 3 days 1.5 mg EAR-BEHIND Q72H 9 days #4 ea 08/12/25 transdermal patch (Transderm-Scop) Allergies Allergy/AdvReac Type Severity Reaction Status Date / Time gabapentin AdvReac Intermediate dizziness Verified 08/17/25 13:33 Review of Systems Review of Systems: Yes all other systems are reviewed and are negative [facility] Past Medical History Medical History Obstructive sleep apnea Esophageal cancer Chronic pain syndrome Nicotine dependence, cigarettes, uncomplicated COPD (chronic obstructive pulmonary disease) Insomnia PAF (paroxysmal atrial fibrillation) Essential (primary) hypertension Opioid dependence with unspecified opioid-induced disorder Peripheral vascular disease due to secondary diabetes Vitamin D deficiency Type 2 diabetes mellitus without complications Surgical History History of endoscopy History of colonoscopy with polypectomy (04/30/23) History of colonoscopy (~04/30/23) History of incisional hernia repair History of inguinal hernia repair History of colostomy History of colostomy reversal History of dental surgery History of hernia repair Family History Family History Father No problems noted. Mother Lung cancer, Onset Age: 48 Brother No problems noted. Brother No problems noted. Brother No problems noted. Sister No problems noted. Social History Social History Household Members: Spouse Housing: House Housing Other:: one step to get into house Are you a primary home health care respiratory therapist to a significant other at home: No Do you presently have visiting nurse or other home services: No Alcohol intake: never Comment: with patient at present Patient Tobacco Use Status: Former Tobacco user Tobacco use type: Cigarette Cigarette Packs Per Day: 1 Years Smoked: 45 e-Cigarette/Vaping Use: Former Use Second Hand Smoke Exposure: Yes Substance Use Type: Marijuana Advance Directives: Yes Advance Directives on File: Yes Advance Directives Date on File: 04/25/22 Do you have a plan to hurt others: No Plan service: No Current occupational status: disabled Current occupation: right handed Cognitive needs: No Hearing needs: No Vision needs: Yes (glasses) Physical Exam ED Vital Signs: Vital Signs - 24 hr 08/17/25 13:30 Temperature 98.3 F Pulse Rate 131 H Respiratory Rate 22 H Blood Pressure 170/84 H Pulse Oximetry 94 Oxygen Delivery Method Room Air BMI result Body Mass Index 27.4 Const Other: The patient is a chronically ill-appearing man who is pale and looks quite weak. He does not seem in obvious acute pain however. HENMT Other: The face is symmetrical. ?Mucous membranes moist. Eyes General: appearance normal, both eyes and all related structures Neck Neck: Yes no JVD Resp Effort & Inspection: normal respiratory effort Auscultation: clear to auscultation bilaterally Cardio Rate: tachycardic Rhythm: regular rhythm Heart sounds: S1 normal heart sound present and S2 normal heart sound present GI Other: The patient was somewhat tender in the suprapubic region. The abdomen is otherwise soft and nontender. There is a midline infraumbilical scar. Other: The patient is a circumcised male. There was blood at the meatus of the penis. No obvious injury at the meatus. Skin Other: Skin is pale and dry Neuro Other: The patient is awake and alert. He seems to have a somewhat vague demeanor but seems reasonably well oriented. He seems generally deconditioned but has no focal findings. Extrem Other: No ankle edema Procedures Catheter Insertion (Urinary) Date of insertion: 08/17/25 Time of insertion: 16:35 Reason for placing: Yes Reason for placing indwelling catheter: Acute urinary retention (The patient is on hospice care and has been having urinary retention) Estimated amount of urine (mLs): 500 Antiseptic solution prep: Povidone-Iodine Topical anesthesia used: Yes Catheter type/location: 2-way Urethral Size (Belarusian): 16 Catheter balloon size (mL): 10 Catheter balloon amount: 10 Results: successfully catheterized-immediate flow Procedure performed: without complications Comment: There was blood at the meatus prior to my attempts at placement. Medical Decision Making Medical Decision Making [facility] Narrative: The patient is a 59-year-old male who was receiving hospice care for esophageal cancer. He has had a urinary catheter for the last few weeks because of urinary retention. This morning he accidentally pulled his catheter can not be replaced in the outpatient setting and so he was sent to the emergency room on the recommendation of the hospice service. I inserted a new urinary catheter under sterile conditions after 1st cleaning off the blood at the meatus. The catheter was placed using technique for urinary catheter insertion. A 16 Belarusian catheter was used. As I advanced the catheter I initially encountered some resistance and I thought that perhaps they might need to try a different kind of catheter but eventually, with very gentle pressure and patience the catheter fully advanced and urine began to drain through the catheter. The balloon was inflated and secured. The patient will be returned to his independent living facility to continue hospice care at home. Discharge Plan Discharge Clinical Impression: Acute urinary retention, Hematuria, Problem with urinary catheter, Hospice care patient, Esophageal cancer Patient Disposition: Home, Self-Care Additional Instructions: A 16-Belarusian standard urinary catheter has been placed. Please resume hospice care. Prescriptions: No Action albuterol sulfate 90 mcg/actuation HFA aerosol inhaler 2 puff inhalation Q4-6H PRN (Reason: for wheezing) Qty: 8.5 2RF polyethylene glycol 3350 [Gavilax] 17 gram/dose powder 17 g PO DAILY Qty: 510 2RF sucralfate [Carafate] 100 mg/mL suspension 10 ml PO QIDACHS Qty: 1000 2RF ondansetron 4 mg tablet,disintegrating 4 mg PO Q8H PRN (Reason: nausea and vomiting) Qty: 20 0RF lactulose 10 gram/15 mL Solution 30 g PO DAILY PRN (Reason: Constipation) Qty: 1200 0RF fentanyl 100 mcg/hr Patch 72 Hour 100 mcg transdermal Q72H 9 Days Qty: 3 0RF Rx Instructions: Partial Fill upon patient request. fentanyl 75 mcg/hr Patch 72 Hour 75 mcg transdermal Q72H 9 Days Qty: 3 0RF Rx Instructions: Partial Fill upon patient request. morphine concentrate 100 mg/5 mL (20 mg/mL) solution 80 mg PO Q3H 7 Days Qty: 224 0RF Rx Instructions: Partial Fill upon patient request. scopolamine base [Transderm-Scop] 1 mg over 3 days Patch 3 Day 1.5 mg EAR-BEHIND Q72H 9 Days Qty: 4 0RF dexamethasone 2 mg Tablet 2 mg PO BEDTIME 14 Days Qty: 14 0RF dexamethasone 4 mg Tablet 4 mg PO DAILY 14 Days Qty: 14 0RF nicotine 21 mg/24 hr Patch 24 Hour 21 mg transdermal DAILY 7 Days Qty: 7 0RF Referrals: [facility], [facility] [Provider Group] Kris Ivory MD [Primary Care Provider, Internal Medicine] Print Language: Croatian
[2025-08-17] MEDS: Lidocaine HCl 2 % Urojet 10 ML JEL.PF.APP TOPICAL (17:43)
[2025-08-17 17:44] VITALS: BP 126/78; PULSE 87; RESP 17; TEMP 36.7; O2SAT 95
--- OUTSIDE RECORDS SUMMARY | 2025-08-17 18:29 | XMS_ITS | Clinical Summary ---
Author Organization [facility] Address [address] [place] [address] Phone Care Team Providers Care [employer] Fitness And Wellness Director Name Role Phone Unavailable Primary Care Provider Unavailabl e Encounters Date Type Department Care Team Description 07/21/2025 7:19 AM EST - 07/21/2025 11:59 PM EST Hospital Encounter [facility] PET Scan [address] [place] [address] Esophagus cancer (CMS/HCC V24, CMS/HCC [...] Routine 07/21/2025 9:02 AM EST Esophagus cancer ([facility] V24, CMS/[facility] V28) from Last 3 Months Results [...] Signed Date: 07/23/2025 05:06 ET Workstation ID: [id number] Transcribed By: Self Edit Transcribed Date: 07/23/2025 [...] Signed Date: 07/23/2025 05:06 ET Workstation ID: [id number] Transcribed By: Self Edit Transcribed Date: 07/23/2025 03:50 ET Altagracia Hernandez MD IMG NM PROCEDURES Final Result from Last 3 Months Insurance [facility] Member Subscriber Plan / Payer (Ef fective 2017-Present) Name:BRAN RAMEY Relation to Subscriber:Self Name:Bran Ramey Payer ID:[id number] Group ID:[id number] Type:Not on file Address: [facility] [address] [id number]
[2025-08-17 20:21] VITALS: BP 116/61; PULSE 95; RESP 16; TEMP 36.6; O2SAT 94
[2025-08-17 20:52] VITALS: BP 116/61; PULSE 95; RESP 16; TEMP 36.6; O2SAT 94
--- NOTE | 2025-08-17 20:52 | PC.NURSE ---
report called to facility
== END 2025-08-17 20:52 | disposition home or self-care (01) ==
PROVIDERS: Emergency Provider Emergency Medicine; PCP Internal Medicine
DX: R33.9 Retention of urine, unspecified (principal); R31.9 Hematuria, unspecified; C15.9 Malignant neoplasm of esophagus, unspecified; Z79.899 Other long term (current) drug therapy
CPT/HCPCS: 99284